=== PATIENT | female | born 1930 | race Caucasian/White ===

== ENCOUNTER 2016-09-05 16:18 | Inpatient (IN) | payer BC ==
[2016-09-05 16:25] VITALS: BMI 25.1
--- NOTE | 2016-09-05 17:17 | PDOC ---
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 Dimas for progressively worsening fluid retention in the lower extremities and shortness of breath. The patient denies any fever, chills, nausea, vomiting, diarrhea, abdominal pain , or chest pain. <Leona Juárez - Last Filed: 09/05/16 17:20> <Delilah Sarmiento - Last Filed: 09/05/16 19:56> - General History Source: Patient, Family Exam Limitations: No Limitations <Reynaldo Chiang - Last Filed: 09/05/16 20:29> - General Chief Complaint: Shortness of Breath Stated Complaint: PCP SENT/SOB/SWOLLEN LEGS Time Seen by Provider: 09/05/16 17:01 Past History <Leona Juárez - Last Filed: 09/05/16 17:20> <Delilah Sarmiento - Last Filed: 09/05/16 19:56> - Past Medical History Anemia: Yes (SEVERAL BLOOD TRANSFUSION) Asthma: No Cancer: No Cardiac Disorders: Yes (ENLARGED HEART) CVA: No COPD: No CHF: Yes Dementia: No Diabetes: No GI Disorders: Yes (AVM) Disorders: No HTN: Yes Hypercholesterolemia: No Liver Disease: Yes (cirrhosis r/t CM) Seizures: No Thyroid Disease: No - Surgical History Abdominal Surgery: No Appendectomy: No Cardiac Surgery: Yes (3 valve replacements, MITRAL VALVE SCRAPING) Cholecystectomy: No Lung Surgery: No Neurologic Surgery: No Orthopedic Surgery: No - Immunization History Immunization Up to Date: Yes - Psycho/Social/Smoking Cessation Hx Anxiety: No Suicidal Ideation: No Smoking Status: Yes Smoking History: Former smoker Have you smoked in the past 12 months: No Number of Cigarettes Smoked Daily: 0 Information on smoking cessation initiated: No Hx Alcohol Use: No Drug/Substance Use Hx: No Substance Use Type: None Hx Substance Use Treatment: No <Reynaldo Chiang - Last Filed: 09/05/16 20:29> - Past Medical History Allergies/Adverse Reactions: Allergies Allergy/AdvReac Type Severity Reaction Status Date / Time clindamycin Allergy Mild Verified 09/05/16 16:21 Penicillins Allergy Mild Verified 09/05/16 16:21 vancomycin Allergy Mild Verified 09/05/16 16:21 PLASTIC TAPE Allergy Rash Uncoded 09/05/16 16:21 Home Medications: Ambulatory Orders Ferrous Sulfate [Feosol] 325 mg PO BID 04/25/13 Furosemide [Lasix -] 40 mg PO DAILY 07/28/13 Calcium Citrate/Vitamin D3 [Calcitrate + Vit D Caplet] 1 each PO BID 09/05/16 Difluprednate [Durezol] 1 drop OP BID 09/05/16 Losartan Potassium [Cozaar -] 25 mg PO DAILY 09/05/16 Nepafenac [Ilevro] 1 drop OP DAILY 09/05/16 Non-Formulary 1 tab PO DAILY 09/05/16 Warfarin Sodium [Coumadin] 3 mg PO ASDIR 09/05/16 Review of Systems - Review of Systems Able to Perform ROS?: Yes Comments:: 09/05/16 17:20 GENERAL/CONSTITUTIONAL: No fever or chills. No weakness. HEAD, EYES, EARS, NOSE AND THROAT: No change in vision. No ear pain or discharge. No sore throat. CARDIOVASCULAR: No chest pain. (+)shortness of breath RESPIRATORY: No cough, wheezing, or hemoptysis. GASTROINTESTINAL: No nausea, vomiting, diarrhea or constipation. GENITOURINARY: No dysuria, frequency, or change in urination. MUSCULOSKELETAL: No joint or muscle swelling or pain. No neck or back pain. SKIN:(+)Lower extremity swelling. NEUROLOGIC: No headache, vertigo, loss of consciousness, or change in strength/ sensation. ENDOCRINE: No increased thirst. No abnormal weight change. HEMATOLOGIC/LYMPHATIC: No anemia, easy bleeding, or history of blood clots. ALLERGIC/IMMUNOLOGIC: No hives or skin allergy. <Leona Juárez - Last Filed: 09/05/16 17:20> *Physical Exam - Vital Signs Last Vital Signs Temp Pulse Resp BP Pulse Ox 98.1 F 51 L 26 H 156/63 94 L 09/05/16 16:22 09/05/16 16:22 09/05/16 16:22 09/05/16 16:22 09/05/16 16:22 - Physical Exam Comments: 09/05/16 17:21 GENERAL: Awake, alert, and fully oriented, in no acute distress HEAD: No signs of trauma EYES: PERRLA, EOMI, sclera anicteric, conjunctiva clear ENT: Auricles normal inspection, hearing grossly normal, nares patent, oropharynx clear without exudates. Moist mucosa NECK: Normal ROM, supple, no lymphadenopathy, JVD, or masses LUNGS: No wheezes.(+)Trace crackles at the bases. HEART: Normal S1 and S2, no murmurs, rubs or gallops. (+)Irregularly irregular metallic valves. ABDOMEN: Soft, nontender, normoactive bowel sounds. No guarding, no rebound. No masses EXTREMITIES: Normal range of motion. No clubbing or cyanosis. No cords. (+)2+ pitting edema bilaterally. NEUROLOGICAL: Cranial nerves II through XII grossly intact. Normal speech. SKIN: Warm, Dry, normal turgor. <Leona Juárez - Last Filed: 09/05/16 17:20> - Vital Signs Last Vital Signs Temp Pulse Resp BP Pulse Ox 98.1 F 51 L 26 H 156/63 94 L 09/05/16 16:22 09/05/16 16:22 09/05/16 16:22 09/05/16 16:22 09/05/16 16:22 <Delilah Sarmiento - Last Filed: 09/05/16 19:56> - Vital Signs Last Vital Signs Temp Pulse Resp BP Pulse Ox 98.1 F 51 L 26 H 156/63 94 L 09/05/16 16:22 09/05/16 16:22 09/05/16 16:22 09/05/16 16:22 09/05/16 16:22 <Reynaldo Chiang - Last Filed: 09/05/16 20:29> Heart Score/ECG Review #1 ECG reviewed & interpreted by me at: 16:45 09/05/16 17:17 atrial fibrillation with a competing junctional rhythm, incomplete RBBB, RVH, right axis deviation, TWI with 1mm STD V6, T wave flat aVL, QTC 438 msec <Reynaldo Chiang - Last Filed: 09/05/16 20:29> ED Treatment Course - LABORATORY CBC & Chemistry Diagram: 09/05/16 17:59 09/05/16 17:59 - ADDITIONAL ORDERS Additional order review: Laboratory Results 09/05/16 09/05/16 09/05/16 18:49 17:59 17:59 INR 2.45 H PTT (Actin FS) 47.6 H D Sodium 135 L Potassium 4.6 Chloride 93 L Carbon Dioxide 34 H Anion Gap 8 BUN 56 H D Creatinine 1.3 H D Creat Clearance w eGFR 39.12 Random Glucose 100 Calcium 9.0 Magnesium 2.8 H D Total Bilirubin 1.0 D AST 118 H D ALT 61 D Alkaline Phosphatase 156 H D Creatine Kinase 96 Troponin I < 0.02 B-Natriuretic Peptide 2350.49 H Total Protein 7.3 D Albumin 3.6 D Urine Color Yellow Urine Appearance Cloudy Urine pH 6.0 Ur Specific [place] 1.011 Urine Protein Negative Urine Glucose (UA) Negative Urine Ketones Negative Urine Blood 1+ H Urine Nitrite Negative Urine Bilirubin Negative Urine Urobilinogen Negative Ur Leukocyte Esterase Negative Urine RBC 10 Urine WBC 1 Ur Epithelial Cells Rare Urine Bacteria Rare Hyaline Casts 4 Granular Casts 1 09/05/16 17:59 RBC 3.34 L MCV 89.1 MCHC 32.2 RDW 15.9 H MPV 10.0 Neutrophils % 71.5 D Lymphocytes % 7.3 L D Monocytes % 18.8 H D Eosinophils % 1.4 D Basophils % 1.0 <Delilah Sarmiento - Last Filed: 09/05/16 19:56> - LABORATORY CBC & Chemistry Diagram: 09/05/16 17:59 09/05/16 17:59 - RADIOLOGY Radiology Studies Ordered: Category Date Time Status CHEST X-RAY PORTABLE* [RAD] Stat Radiology 09/05/16 17:02 Ordered <Reynaldo Chiang - Last Filed: 09/05/16 20:29> Medical Decision Making - Medical Decision Making 09/05/16 19:56 Placed call to patient's PCP, Dr. Dimas. Case discussed with Dr. Dimas who agreed to admission. 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 Case discussed with covering physician, Dr. Barroso. <Delilah Sarmiento - Last Filed: 09/05/16 19:56> - Medical Decision Making 09/05/16 17:13 A portion of this note was written by my scribe under my supervision. 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 Dimas for CHF workup. The patient endorses 1 month of increasing MORSE and increasingly lower extremity edema despite taking 20 mg lasix BID. Denies chest pain or recent illnesses. Pt was seen by DR. Dimas who sent the patient to the ER for further evaluation. Differential includes CHF, anemia, ACS. Will send labs including trop and BNP. Chest xray. It appears that the patient has afib (which is reportedly new to the patient). however, patient already reports she is on coumadin for her valves. Will admit the patient to the hospital for further workup and management. 09/05/16 20:27 CBC, BMP 09/05/16 17:59 09/05/16 17:59 CMP Sodium 135 mmol/L (136-145) L 09/05/16 17:59 Potassium 4.6 mmol/L (3.5-5.1) 09/05/16 17:59 Chloride 93 mmol/L (98-107) L 09/05/16 17:59 Carbon Dioxide 34 mmol/L (21-32) H 09/05/16 17:59 Anion Gap 8 (8-16) 09/05/16 17:59 BUN 56 mg/dL (7-18) H D 09/05/16 17:59 Creatinine 1.3 mg/dL (0.55-1.02) H D 09/05/16 17:59 Creat Clearance w eGFR 39.12 (>60) 09/05/16 17:59 Random Glucose 100 mg/dL (74-106) 09/05/16 17:59 Calcium 9.0 mg/dL (8.5-10.1) 09/05/16 17:59 Magnesium 2.8 mg/dL (1.8-2.4) H D 09/05/16 17:59 Total Bilirubin 1.0 mg/dL (0.2-1.0) D 16 17:59 AST 118 U/L (15-37) H D 09/05/16 17:59 ALT 61 U/L (12-78) D 16 17:59 Alkaline Phosphatase 156 U/L (45-117) H D 09/05/16 17:59 Creatine Kinase 96 IU/L (26-192) 09/05/16 17:59 Troponin I < 0.02 ng/ml (0.015-0.045) 09/05/16 17:59 B-Natriuretic Peptide 2350.49 pg/ml (5-450) H 09/05/16 17:59 Total Protein 7.3 g/dl (6.4-8.2) D 09/05/16 17:59 Albumin 3.6 g/dl (3.4-5.0) D 09/05/16 17:59 Urine Test Results Urine Color Yellow 09/05/16 18:49 Urine Appearance Cloudy 09/05/16 18:49 Urine pH 6.0 (5.0-8.0) 09/05/16 18:49 Ur Specific [place] 1.011 (1.001-1.035) 09/05/16 18:49 Urine Protein Negative (NEGATIVE) 09/05/16 18:49 Urine Glucose (UA) Negative (NEGATIVE) 09/05/16 18:49 Urine Ketones Negative (NEGATIVE) 09/05/16 18:49 Urine Blood 1+ (NEGATIVE) H 09/05/16 18:49 Urine Nitrite Negative (NEGATIVE) 09/05/16 18:49 Urine Bilirubin Negative (NEGATIVE) 09/05/16 18:49 Ur Leukocyte Esterase Negative (NEGATIVE) 09/05/16 18:49 Urine RBC 10 /hpf (0-3) 09/05/16 18:49 Urine WBC 1 /hpf (3-5) 09/05/16 18:49 Ur Epithelial Cells Rare /hpf (FEW) 09/05/16 18:49 Urine Bacteria Rare /hpf (NONE SEEN) 09/05/16 18:49 Labs reviewed. Cr 1.3. BNP 2350. Chest xray reviewed: cardiomegaly. Case discussed with DR. Barroso (cards) and Dr. Dimas. Requested 40 mg IV lasix. Case accepted to Dr. Dimas's service to telemetry. For CHF and elevated creatinine. <Reynaldo Chiang - Last Filed: 09/05/16 20:29> *DC/Admit/Observation/Transfer - Attestations Scribe Attestion: 09/05/16 17:25 Documentation prepared by Leona Juárez, acting as medical surgery nurse for Reynaldo Chiang MD. <Leona Juárez - Last Filed: 09/05/16 17:20> <Delilah Sarmiento - Last Filed: 09/05/16 19:56> - Discharge Dispostion Admit: Yes <Reynaldo Chiang - Last Filed: 09/05/16 20:29> Diagnosis at time of Disposition: Serum creatinine raised, Shortness of breath Congestive heart failure Qualifiers: Congestive heart failure type: unspecified congestive heart failure type Congestive heart failure chronicity: unspecified congestive heart failure chronicity Qualified Code(s): I50.9 - Heart failure, unspecified - Discharge Dispostion Condition at time of disposition: Guarded - Referrals Referrals: Braeden Dimas MD [Primary Care Provider] -
[2016-09-05 18:30] LABS: EOSINOPHIL 1.4 % (0-4.5); MCH 28.7 pg (25.7-33.7); MCHC 32.2 g/dl (32.0-36.0); MEAN CELL VOLUME 89.1 fl (80-96); NEUTROPHILS 71.5 % (42.8-82.8); PLATELET COUNT 193 K/MM3 (134-434); RDW 15.9 % (11.6-15.6); WHITE BLOOD COUNT 3.7 K/mm3 (4.0-10.0)
[2016-09-05 18:45] LABS: INR 2.45 (0.82-1.09); PROTHROMBIN TIME (PATIENT) 27.4 SEC (9.98-11.88)
[2016-09-05 18:48] LABS: ACTIVATED PTT 47.6 SECONDS (26.9-34.4)
[2016-09-05 19:07] LABS: URINE APPEARANCE CLOUDY; URINE BILIRUBIN NEGATIVE (NEGATIVE); URINE COLOR YELLOW; URINE GLUCOSE (UA) NEGATIVE (NEGATIVE); URINE KETONE NEGATIVE (NEGATIVE); URINE LEUK ESTERASE NEGATIVE (NEGATIVE); URINE NITRITE NEGATIVE (NEGATIVE); URINE PROTEIN NEGATIVE (NEGATIVE); URINE UROBILINOGEN NEGATIVE E.U./dl (0.2-1.0)
[2016-09-05 19:09] LABS: URINE BLOOD 1+ (NEGATIVE)
[2016-09-05 19:10] LABS: GRANULAR CASTS 1 /lpf; URINE BACTERIA RARE /hpf (NONE SEEN); URINE HYALINE CAST 4 /lpf; URINE RBC 10 /hpf (0-3); URINE WBC 1 /hpf (3-5)
[2016-09-05 19:11] LABS: ALBUMIN 3.6 g/dl (3.4-5.0); ANION GAP 8 (8-16); CO2 34 mmol/L (21-32); CREATININE 1.3 mg/dL (0.55-1.02); GLUCOSE,RANDOM 100 mg/dL (74-106); MAGNESIUM 2.8 mg/dL (1.8-2.4); SGPT/ALT 61 U/L (12-78); TOT PROT 7.3 g/dl (6.4-8.2)
[2016-09-05 19:14] LABS: ALK PHOS 156 U/L (45-117); TROPONIN I < 0.02 ng/ml (0.015-0.045)
[2016-09-05 19:34] LABS: SGOT/AST 118 U/L (15-37)
[2016-09-05] MEDS ORDERED: ACETAMINOPHEN 325 MG TABLET (FP) PO PRN (20:01)
[2016-09-05] MEDS ORDERED: OPTH OD PRN (20:04)
[2016-09-05] MEDS ORDERED: HYPROMELLOSE OD PRN (20:04)
[2016-09-05] MEDS ORDERED: FUROSEMIDE 40 MG/4 ML INJECTABLE VIAL IVPB ONE (20:27)
[2016-09-05] MEDS ORDERED: WARFARIN NA 1 MG TABLET (FP) ONE (20:30)
[2016-09-05] MEDS ORDERED: FUROSEMIDE 40 MG/4 ML INJECTABLE VIAL ONE (22:15)
[2016-09-06] MEDS: FERROUS SO4 325 MG TABLET (FP) PO SCH ×3 (04:28→21:13)
[2016-09-06 07:51] LABS: MCH 28.7 pg (25.7-33.7); MCHC 32.3 g/dl (32.0-36.0); MEAN CELL VOLUME 89.1 fl (80-96); MEAN PLT VOLUME 9.2 fl (7.5-11.1); PLATELET COUNT 164 K/MM3 (134-434); WHITE BLOOD COUNT 3.3 K/mm3 (4.0-10.0)
[2016-09-06 08:24] LABS: INR 2.7 (0.82-1.09); PROTHROMBIN TIME (PATIENT) 30.3 SEC (9.98-11.88)
[2016-09-06] MEDS: LOSARTAN POTASSIUM 50 MG TABLET (FP) PO SCH (09:44)
--- NOTE | 2016-09-06 11:01 | CONSULT ---
Consult Consult Specialty:: Cardiology Referred by:: Dr. Braeden Dimas Reason for Consultation:: Cardiac evaluation - History of Present Illness Chief Complaint: Shortness of breath History of Present Illness: Patient is an 85 year old female well known to our service (sees Dr. Grossman) with underlying history of rheumatic heart disease s/p mechanical prosthesis both mitral and aortic valve and bioprosthetic tricuspid valve, history of permanent atrial fibrillation, hepatic cirrhosis, cholelithiasis and history of GI bleed in the past now presents with increase in shortness of breath and pedal edema. She was given IV Lasix last night and feels a little better, but still appears short of breath. She denies chest pain or palpitations. ECG demonstrates atrial fibrillation, but rate controlled. She denies paroxysmal nocturnal dyspnea or orthopnea. She denies fever or chills. She denies headache or lightheadedness. Cardiology consultation was called for further evaluation. - History Source History Provided By: Patient, Medical Record Limitations to Obtaining History: No Limitations - Past Medical History Cardio/Vascular: Yes: AFIB, Aortic Insufficiency, Mitral Insufficiency, Other ( Rheumatic heart disease) Gastrointestinal: Yes: GI Bleed, Peptic Ulcer Disease, Other (AV malformation) Hepatobiliary: Yes: Cirrhosis, Cholelithiasis - Past Surgical History Past Surgical History: Yes: Valve Replacement (Mechanical AVR, MVR, bioprosthetic TVR) - Alcohol/Substance Use Hx Alcohol Use: Yes (seldom) - Smoking History Smoking history: Former smoker Have you smoked in the past 12 months: No Aproximately how many cigarettes per day: 0 If you are a former smoker, when did you quit?: 2013 Home Medications - Allergies Allergies/Adverse Reactions: Allergies Allergy/AdvReac Type Severity Reaction Status Date / Time clindamycin Allergy Mild Verified 09/05/16 16:21 Penicillins Allergy Mild Verified 09/05/16 16:21 vancomycin Allergy Mild Verified 09/05/16 16:21 PLASTIC TAPE Allergy Rash Uncoded 09/05/16 16:21 - Home Medications Home Medications: Ambulatory Orders Ferrous Sulfate [Feosol] 325 mg PO BID 04/25/13 Furosemide [Lasix -] 40 mg PO DAILY 07/28/13 Calcium Citrate/Vitamin D3 [Calcitrate + Vit D Caplet] 1 each PO BID 09/05/16 Difluprednate [Durezol] 1 drop OP BID 09/05/16 Losartan Potassium [Cozaar -] 25 mg PO DAILY 09/05/16 Nepafenac [Ilevro] 1 drop OP DAILY 09/05/16 Non-Formulary 1 tab PO DAILY 09/05/16 Warfarin Sodium [Coumadin] 3 mg PO ASDIR 09/05/16 Family Disease History - Family Disease History Other Family History: History of HTN Review of Systems - Review of Systems Constitutional: denies: Chills Cardiovascular: reports: Shortness of Breath. denies: Chest Pain, Palpitations Respiratory: reports: SOB, SOB on Exertion. denies: Cough, Hemoptysis, Orthopnea, PND Gastrointestinal: denies: Abdominal Pain, Constipation, Diarrhea, Melena, Nausea , Rectal Bleeding, Vomiting Musculoskeletal: denies: Joint Pain Neurological: denies: Dizziness, Headache, Seizure, Syncope Vital Signs: Vital Signs Temperature 97.7 F 09/06/16 06:00 Pulse Rate 61 09/06/16 06:00 Respiratory Rate 18 09/06/16 06:00 Blood Pressure 140/45 09/06/16 06:00 O2 Sat by Pulse Oximetry (%) 98 09/06/16 01:00 Neck: Yes: Supple Respiratory: Yes: Diminished Gastrointestinal: Yes: Normal Bowel Sounds, Soft. No: Tenderness Cardiovascular: Yes: Pulse Irregular JVD: No Carotid Bruit: No PMI: Non-Displaced Heart Sounds: Yes: S1, S2, Clicks Murmur: Yes: Systolic Murmur (Soft decrescendo systolic murmur apex) Extremities: Yes: Erythema Edema: Yes Edema: LLE: 2+, RLE: 2+ - Other Data Labs, Other Data: CBC, BMP 09/06/16 06:10 INR, PTT INR 2.70 (0.82-1.09) H 09/06/16 06:10 Imaging - Results Chest X-ray: Report Reviewed (Cardiomegaly) EKG: Report Reviewed Problem List - Problems (1) CHF (congestive heart failure) Code(s): I50.9 - HEART FAILURE, UNSPECIFIED Qualifiers: Congestive heart failure type: diastolic Congestive heart failure chronicity: acute on chronic Qualified Code(s): I50.33 - Acute on chronic diastolic (congestive) heart failure (2) Shortness of breath Code(s): R06.02 - SHORTNESS OF BREATH (3) S/P MVR (mitral valve replacement) Code(s): Z95.2 - PRESENCE OF PROSTHETIC HEART VALVE (4) Rheumatic heart disease Code(s): I09.9 - RHEUMATIC HEART DISEASE, UNSPECIFIED (5) S/P AVR (aortic valve replacement) Code(s): Z95.2 - PRESENCE OF PROSTHETIC HEART VALVE (7) Anemia Code(s): D64.9 - ANEMIA, UNSPECIFIED Qualifiers: Anemia type: iron deficiency (8) Hepatic cirrhosis Code(s): K74.60 - UNSPECIFIED CIRRHOSIS OF LIVER Qualifiers: Hepatic cirrhosis type: unspecified hepatic cirrhosis Ascites presence : without ascites Qualified Code(s): K74.60 - Unspecified cirrhosis of liver Assessment/Plan 1. Clinical presentation c/w acute on chronic LV diastolic failure with NYHA II- III classification heart failure 2. Post MVR and AVR (mechanical prosthesis) with history of rheumatic heart disease 3. Post TVR (bioprosthesis) 4. Permanent atrial fibrillation 5. Anemia 6. History of hepatic cirrhosis and cholelithiasis PLAN: 1. Agree with IV Lasix 40 mg BID if tolerated and monitor renal function and electrolytes 2. Continue Coumadin as per INR 3. Continue Cozaar as tolerated. Currently not on beta yuly, but will review medical records from the office 4. Will review cardiac testing result from office if available 5. Monitor troponin 6. Monitor CBC (H/H) Further plans are to follow Elio Barroso MD
[2016-09-06 11:16] LABS: ALBUMIN 3.4 g/dl (3.4-5.0); BILIRUBIN,TOTAL 0.9 mg/dL (0.2-1.0); CALCIUM 8.6 mg/dL (8.5-10.1); CREATININE 1.2 mg/dL (0.55-1.02); TOT PROT 6.6 g/dl (6.4-8.2)
--- NOTE | 2016-09-06 12:17 | HP ---
Admitting History and Physical - Primary Care Physician PCP: Braeden Dimas - Admission Chief Complaint: DYSPNEA/WEAKNESS History of Present Illness: 85 Y/O FEMALE WELL KNOWN TO OUR PRACTICE WITH HISTORY OF MULTIPLE CARDIAC VALVE REPLACEMENTS 25 YEARS AGO. PATIENT ON COUMADIN, IATOGENIC CIRRHOSIS, VENOUS STASIS DERMATITIS, UNSTEADY GAIT PRESENTED TO MY OFFICE 2 DAYS AGO WITH DYSPNEA/ WEAKNESS, AFTER CAREFULLY REVIEWING HER LABS I CALLED HER AND TOLD HER TO COME TO ED FOR ADMISSION. PATIENT HAD ELEVATED BUN/CREAT AND ELEVATED BNP. History Source: Patient - Past Medical History Cardiovascular: Yes: AFIB, Aortic Insufficiency, Mitral Insufficiency, Other ( Rheumatic heart disease) Gastrointestinal: Yes: GI Bleed, Peptic Ulcer Disease, Other (AV malformation) Hepatobiliary: Yes: Cirrhosis, Cholelithiasis - Past Surgical History Past Surgical History: Yes: Valve Replacement (Mechanical AVR, MVR, bioprosthetic TVR) - Smoking History Smoking history: Former smoker Have you smoked in the past 12 months: No Aproximately how many cigarettes per day: 0 If you are a former smoker, when did you quit?: 2013 - Alcohol/Substance Use Hx Alcohol Use: Yes (seldom) Home Medications - Allergies Allergies/Adverse Reactions: Allergies Allergy/AdvReac Type Severity Reaction Status Date / Time clindamycin Allergy Mild Verified 09/05/16 16:21 Penicillins Allergy Mild Verified 09/05/16 16:21 vancomycin Allergy Mild Verified 09/05/16 16:21 PLASTIC TAPE Allergy Rash Uncoded 09/05/16 16:21 - Home Medications Home Medications: Ambulatory Orders Ferrous Sulfate [Feosol] 325 mg PO BID 04/25/13 Furosemide [Lasix -] 40 mg PO DAILY 07/28/13 Calcium Citrate/Vitamin D3 [Calcitrate + Vit D Caplet] 1 each PO BID 09/05/16 Difluprednate [Durezol] 1 drop OP BID 09/05/16 Losartan Potassium [Cozaar -] 25 mg PO DAILY 09/05/16 Nepafenac [Ilevro] 1 drop OP DAILY 09/05/16 Non-Formulary 1 tab PO DAILY 09/05/16 Warfarin Sodium [Coumadin] 3 mg PO ASDIR 09/05/16 Family Disease History - Family Disease History Other Family History: History of HTN Review of Systems - Review of Systems Constitutional: reports: Loss of Appetite, Malaise, Weakness Eyes: reports: No Symptoms HENT: reports: No Symptoms Neck: reports: No Symptoms Cardiovascular: reports: Palpitations, Shortness of Breath Respiratory: reports: Cough, Exercise Intolerance, SOB Gastrointestinal: reports: No Symptoms Genitourinary: reports: No Symptoms Musculoskeletal: reports: Muscle Weakness Integumentary: reports: Erythema, Rash Neurological: reports: No Symptoms Endocrine: reports: No Symptoms Hematology/Lymphatic: reports: No Symptoms Psychiatric: reports: No Symptoms Physical Examination Vital Signs: Vital Signs Temperature 97.7 F 09/06/16 06:00 Pulse Rate 61 09/06/16 06:00 Respiratory Rate 18 09/06/16 10:00 Blood Pressure 140/45 09/06/16 06:00 O2 Sat by Pulse Oximetry (%) 98 09/06/16 10:00 Constitutional: Yes: Moderate Distress Eyes: Yes: WNL HENT: Yes: WNL Neck: Yes: WNL Cardiovascular: Yes: Pulse Irregular, Murmur Respiratory: Yes: Diminished, Poor Air Entry, SOB, SOB on Exertion Gastrointestinal: Yes: WNL Renal/: Yes: WNL Musculoskeletal: Yes: Muscle Weakness Extremities: Yes: WNL Edema: No Peripheral Pulses WNL: Yes Integumentary: Yes: Erythema, Rash, Venous Stasis Changes Wound/Incision: Yes: Open to air Neurological: Yes: WNL ...Motor Strength: LLE, RLE Psychiatric: Yes: Other Labs: CBC, BMP 09/06/16 06:10 09/06/16 06:10 Imaging - Results X-ray: Report Reviewed Problem List - Problems (1) Anemia Code(s): D64.9 - ANEMIA, UNSPECIFIED Qualifiers: Anemia type: iron deficiency (2) CHF (congestive heart failure) Code(s): I50.9 - HEART FAILURE, UNSPECIFIED Qualifiers: Congestive heart failure type: diastolic Congestive heart failure chronicity: acute on chronic Qualified Code(s): I50.33 - Acute on chronic diastolic (congestive) heart failure (3) Elevated serum creatinine Code(s): R79.89 - OTHER SPECIFIED ABNORMAL FINDINGS OF BLOOD CHEMISTRY (4) Hepatic cirrhosis Code(s): K74.60 - UNSPECIFIED CIRRHOSIS OF LIVER Qualifiers: Hepatic cirrhosis type: unspecified hepatic cirrhosis Ascites presence : without ascites Qualified Code(s): K74.60 - Unspecified cirrhosis of liver (5) Rheumatic heart disease Code(s): I09.9 - RHEUMATIC HEART DISEASE, UNSPECIFIED (6) S/P AVR (aortic valve replacement) Code(s): Z95.2 - PRESENCE OF PROSTHETIC HEART VALVE (7) S/P MVR (mitral valve replacement) Code(s): Z95.2 - PRESENCE OF PROSTHETIC HEART VALVE (9) Shortness of breath Code(s): R06.02 - SHORTNESS OF BREATH Assessment/Plan IV LASIX RENAL AND CARDIAC EVAL APPRECIATED VASC SX EVAL FOR STASIS DERMATITIS 02 SUPPORT PULM EVAL
[2016-09-06 12:59] LABS: TROPONIN I < 0.02 ng/ml (0.015-0.045)
[2016-09-06] MEDS: FUROSEMIDE 40 MG/4 ML INJECTABLE VIAL IVPUSH SCH (14:51)
--- NOTE | 2016-09-06 15:02 | CONSULT ---
Consult Consult Specialty:: Nephrology Reason for Consultation:: RADHA - History of Present Illness Chief Complaint: shortness of breath History of Present Illness: Pt is an 85 year old female who presents to the ER with weakness and shortness of breath that has been progressive. She has history of mechanical aortic and mitral valves, bioprosthetic tricuspid valve, a-fib, cirrhosis, GI bleed, anemai , and HTN. She felt better when she was given lasix. I was called to evaluate her for elevated creatinine. She denies history if CKD. She denies dysuria or hematuria. She denies NSAID use. She is awake and alert. She feels that her breathing is improved. - History Source History Provided By: Patient - Past Medical History Cardio/Vascular: Yes: AFIB, Aortic Insufficiency, Mitral Insufficiency, Other ( Rheumatic heart disease) Gastrointestinal: Yes: GI Bleed, Peptic Ulcer Disease, Other (AV malformation) Hepatobiliary: Yes: Cirrhosis, Cholelithiasis - Past Surgical History Past Surgical History: Yes: Valve Replacement (Mechanical AVR, MVR, bioprosthetic TVR) - Alcohol/Substance Use Hx Alcohol Use: Yes (seldom) - Smoking History Smoking history: Former smoker Have you smoked in the past 12 months: No Aproximately how many cigarettes per day: 0 If you are a former smoker, when did you quit?: 2013 Home Medications - Allergies Allergies/Adverse Reactions: Allergies Allergy/AdvReac Type Severity Reaction Status Date / Time clindamycin Allergy Mild Verified 09/05/16 16:21 Penicillins Allergy Mild Verified 09/05/16 16:21 vancomycin Allergy Mild Verified 09/05/16 16:21 PLASTIC TAPE Allergy Rash Uncoded 09/05/16 16:21 - Home Medications Home Medications: Ambulatory Orders Ferrous Sulfate [Feosol] 325 mg PO BID 04/25/13 Furosemide [Lasix -] 40 mg PO DAILY 07/28/13 Calcium Citrate/Vitamin D3 [Calcitrate + Vit D Caplet] 1 each PO BID 09/05/16 Difluprednate [Durezol] 1 drop OP BID 09/05/16 Losartan Potassium [Cozaar -] 25 mg PO DAILY 09/05/16 Nepafenac [Ilevro] 1 drop OP DAILY 09/05/16 Non-Formulary 1 tab PO DAILY 09/05/16 Warfarin Sodium [Coumadin] 3 mg PO ASDIR 09/05/16 Family Disease History - Family Disease History Family History: Denies Other Family History: History of HTN Review of Systems - Review of Systems Constitutional: reports: Malaise Eyes: reports: No Symptoms HENT: reports: No Symptoms Neck: reports: No Symptoms Cardiovascular: reports: Edema, Shortness of Breath Respiratory: reports: SOB, SOB on Exertion Genitourinary: reports: No Symptoms Musculoskeletal: reports: Muscle Weakness Integumentary: reports: No Symptoms Neurological: reports: No Symptoms Endocrine: reports: No Symptoms Hematology/Lymphatic: reports: No Symptoms Psychiatric: reports: No Symptoms Physical Exam Vital Signs: Vital Signs Temperature 98.5 F 09/06/16 14:00 Pulse Rate 60 09/06/16 14:00 Respiratory Rate 18 09/06/16 14:00 Blood Pressure 117/48 09/06/16 14:00 O2 Sat by Pulse Oximetry (%) 98 09/06/16 10:00 Constitutional: Yes: Calm Eyes: Yes: Conjunctiva Clear HENT: Yes: Atraumatic Cardiovascular: Yes: Pulse Irregular, S1, S2 Respiratory: Yes: Diminished, On Nasal O2 Gastrointestinal: Yes: Soft Renal/: Yes: WNL Musculoskeletal: Yes: Muscle Weakness Edema: Yes Edema: LLE: 1+, RLE: 1+ Neurological: Yes: Oriented Psychiatric: Yes: Oriented Labs: CBC, BMP 09/06/16 06:10 09/06/16 06:10 Laboratory Tests 03/16/13 03/24/13 03/25/13 06:40 07:30 08:20 WBC Hgb Plt Count INR Sodium Potassium Chloride Carbon Dioxide Anion Gap Creatinine 0.6 0.6 0.7 BUN Creat Clearance w eGFR B-Natriuretic Peptide Urine Color Urine Appearance Urine pH Ur Specific [place] Urine Protein Urine Glucose (UA) Urine Ketones Urine Blood Urine Nitrite Urine Bilirubin Urine Urobilinogen Ur Leukocyte Esterase 03/27/13 03/29/13 04/01/13 08:35 07:35 07:15 WBC Hgb Plt Count INR Sodium Potassium Chloride Carbon Dioxide Anion Gap Creatinine 0.7 0.6 0.5 L BUN Creat Clearance w eGFR B-Natriuretic Peptide Urine Color Urine Appearance Urine pH Ur Specific [place] Urine Protein Urine Glucose (UA) Urine Ketones Urine Blood Urine Nitrite Urine Bilirubin Urine Urobilinogen Ur Leukocyte Esterase 04/29/13 07/28/13 07/30/13 11:16 11:40 06:00 WBC Hgb Plt Count INR Sodium Potassium Chloride Carbon Dioxide Anion Gap Creatinine 0.6 1.0 D 0.7 BUN Creat Clearance w eGFR B-Natriuretic Peptide Urine Color Urine Appearance Urine pH Ur Specific [place] Urine Protein Urine Glucose (UA) Urine Ketones Urine Blood Urine Nitrite Urine Bilirubin Urine Urobilinogen Ur Leukocyte Esterase 07/31/13 08/02/13 08/03/13 06:00 06:15 06:00 WBC Hgb Plt Count INR Sodium Potassium Chloride Carbon Dioxide Anion Gap Creatinine 0.6 0.6 0.5 L BUN Creat Clearance w eGFR B-Natriuretic Peptide Urine Color Urine Appearance Urine pH Ur Specific [place] Urine Protein Urine Glucose (UA) Urine Ketones Urine Blood Urine Nitrite Urine Bilirubin Urine Urobilinogen Ur Leukocyte Esterase 09/05/16 09/05/16 09/05/16 17:59 17:59 17:59 WBC 3.7 L Hgb 9.6 L Plt Count 193 D INR 2.45 H Sodium 135 L Potassium 4.6 Chloride 93 L Carbon Dioxide 34 H Anion Gap 8 Creatinine 1.3 H D BUN 56 H D Creat Clearance w eGFR 39.12 B-Natriuretic Peptide 2350.49 H Urine Color Urine Appearance Urine pH Ur Specific [place] Urine Protein Urine Glucose (UA) Urine Ketones Urine Blood Urine Nitrite Urine Bilirubin Urine Urobilinogen Ur Leukocyte Esterase 09/05/16 09/06/16 09/06/16 18:49 06:10 06:10 WBC 3.3 L Hgb 8.7 L Plt Count 164 INR 2.70 H Sodium Potassium Chloride Carbon Dioxide Anion Gap Creatinine BUN Creat Clearance w eGFR B-Natriuretic Peptide Urine Color Yellow Urine Appearance Cloudy Urine pH 6.0 Ur Specific [place] 1.011 Urine Protein Negative Urine Glucose (UA) Negative Urine Ketones Negative Urine Blood 1+ H Urine Nitrite Negative Urine Bilirubin Negative Urine Urobilinogen Negative Ur Leukocyte Esterase Negative 09/06/16 06:10 WBC Hgb Plt Count INR Sodium 137 Potassium Chloride Carbon Dioxide Anion Gap Creatinine 1.2 H BUN 53 H Creat Clearance w eGFR B-Natriuretic Peptide Urine Color Urine Appearance Urine pH Ur Specific [place] Urine Protein Urine Glucose (UA) Urine Ketones Urine Blood Urine Nitrite Urine Bilirubin Urine Urobilinogen Ur Leukocyte Esterase Imaging - Results Chest X-ray: Report Reviewed (cardiomegaly) Problem List - Problems (1) Anemia Code(s): D64.9 - ANEMIA, UNSPECIFIED Qualifiers: Anemia type: iron deficiency (2) CHF (congestive heart failure) Code(s): I50.9 - HEART FAILURE, UNSPECIFIED Qualifiers: Congestive heart failure type: diastolic Congestive heart failure chronicity: acute on chronic Qualified Code(s): I50.33 - Acute on chronic diastolic (congestive) heart failure (3) Cholelithiasis Code(s): K80.20 - CALCULUS OF GALLBLADDER W/O CHOLECYSTITIS W/O OBSTRUCTION Qualifiers: Cholelithiasis location: gallbladder Cholecystitis presence: without cholecystitis Biliary obstruction: without biliary obstruction Qualified Code(s): K80.20 - Calculus of gallbladder without cholecystitis without obstruction (4) Hepatic cirrhosis Code(s): K74.60 - UNSPECIFIED CIRRHOSIS OF LIVER Qualifiers: Hepatic cirrhosis type: unspecified hepatic cirrhosis Ascites presence : without ascites Qualified Code(s): K74.60 - Unspecified cirrhosis of liver (5) S/P AVR (aortic valve replacement) Code(s): Z95.2 - PRESENCE OF PROSTHETIC HEART VALVE (6) S/P MVR (mitral valve replacement) Code(s): Z95.2 - PRESENCE OF PROSTHETIC HEART VALVE (8) Shortness of breath Code(s): R06.02 - SHORTNESS OF BREATH (9) RADHA (acute kidney injury) Code(s): N17.9 - ACUTE KIDNEY FAILURE, UNSPECIFIED Assessment/Plan Current Medications Generic Name Dose Route Start Last Admin Trade Name Freq PRN Reason Stop Dose Admin Acetaminophen 650 mg 09/05/16 20:01 Tylenol - PO Q6H PRN FEVER OR PAIN Artificial Tears 1 drop 09/05/16 20:04 Artificial Tears OD DAILY PRN DRY EYES Ferrous Sulfate 325 mg 09/05/16 22:00 09/06/16 09:44 Feosol - PO 325 mg BID ABELARDO Administration Furosemide 40 mg 09/06/16 14:00 09/06/16 14:51 Lasix Injection - IVPUSH 40 mg BID@0600,1400 ABELARDO Administration Losartan Potassium 25 mg 09/06/16 10:00 09/06/16 09:44 Cozaar - PO 25 mg DAILY ABELARDO Administration Nepafenac 0.3% Opth 1 each 09/06/16 10:00 Drops OD DAILY ABELARDO Difluprednate 0.05% 1 each 09/06/16 10:00 Opth Drops OD BID [facility] Warfarin Sodium 3 mg 09/06/16 18:00 Coumadin - PO DAILY@1800 [facility] Impression 1. RADHA 2. aortic valve replacement 3. mitral valve replacement 4. tricuspid valve replacement 5. CHF 6. a-fib 7. anemia 8. hx GI bleed 9. HTN Plan - agree with lasix - creatinine is improving - will hold cozaar if renal function deteriorates further - will check ultrasound of the kidneys and bladder - check ua - will send urine lytes - likely cardiorenal - unclear why not on beta yuly, will discussed with cardio/pulm Dr Bo
[2016-09-06] MEDS ORDERED: ZOLPIDEM TARTRATE 5 MG TABLET PO PRN (17:38)
[2016-09-06] MEDS ORDERED: WARFARIN NA 2 MG TABLET (UD) PO ONE (18:00)
[2016-09-07 02:14] LABS: URINE APPEARANCE CLEAR; URINE BILIRUBIN NEGATIVE (NEGATIVE); URINE COLOR YELLOW; URINE GLUCOSE (UA) NEGATIVE (NEGATIVE); URINE KETONE NEGATIVE (NEGATIVE); URINE LEUK ESTERASE NEGATIVE (NEGATIVE); URINE NITRITE NEGATIVE (NEGATIVE); URINE PROTEIN NEGATIVE (NEGATIVE); URINE UROBILINOGEN NEGATIVE E.U./dl (0.2-1.0)
[2016-09-07 02:21] LABS: URINE BLOOD 1+ (NEGATIVE)
[2016-09-07 02:25] LABS: URINE HYALINE CAST 23 /lpf; URINE MUCUS RARE; URINE RBC 2 /hpf (0-3); URINE WBC 2 /hpf (3-5)
[2016-09-07 03:48] LABS: CHLORIDE,RANDOM URINE < 10 MMOL/L; SODIUM,RANDOM URINE 9 MMOL/L
[2016-09-07] MEDS: FUROSEMIDE 40 MG/4 ML INJECTABLE VIAL IVPUSH SCH ×2 (06:12→14:07)
[2016-09-07 08:15] LABS: ALBUMIN 3.2 g/dl (3.4-5.0); BILIRUBIN,TOTAL 0.7 mg/dL (0.2-1.0); CALCIUM 8.1 mg/dL (8.5-10.1); CREATININE 1.4 mg/dL (0.55-1.02); TOT PROT 6.7 g/dl (6.4-8.2)
[2016-09-07 08:17] LABS: MCH 28.4 pg (25.7-33.7); MCHC 31.5 g/dl (32.0-36.0); MEAN CELL VOLUME 90.2 fl (80-96); MEAN PLT VOLUME 9.8 fl (7.5-11.1); PLATELET COUNT 202 K/MM3 (134-434); RDW 16.1 % (11.6-15.6); WHITE BLOOD COUNT 4.6 K/mm3 (4.0-10.0)
--- NOTE | 2016-09-07 09:33 | EKG ---
Test Reason : Blood Pressure : / mmHG Vent. 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
--- NOTE | 2016-09-07 09:56 | PN ---
Progress Note, Physician Chief Complaint: Dyspnea persists, but better History of Present Illness: Patient was seen and examined. Awake and alert. Chart was reviewed Denies chest pain or palpitations Less SOB Pedal edema persists - Current Medication List Current Medications: Active Medications Acetaminophen (Tylenol -) 650 mg PO Q6H PRN PRN Reason: FEVER OR PAIN Artificial Tears (Artificial Tears) 1 drop OD DAILY PRN PRN Reason: DRY EYES Ferrous Sulfate (Feosol -) 325 mg PO BID [facility] Last Admin: 09/06/16 21:13 Dose: 325 mg Furosemide (Lasix Injection -) 40 mg IVPUSH BID@0600,1400 [facility] Last Admin: 09/07/16 06:12 Dose: 40 mg Losartan Potassium (Cozaar -) 25 mg PO DAILY [facility] Last Admin: 09/06/16 09:44 Dose: 25 mg Nepafenac 0.3% Opth (Drops) 1 each OD DAILY [facility] Difluprednate 0.05% (Opth Drops) 1 each OD BID [facility] Warfarin Sodium (Coumadin -) 3 mg PO DAILY@1800 [facility] Zolpidem Tartrate (Ambien -) 5 mg PO HS PRN Last Admin: 09/06/16 22:58 Dose: 5 mg - Objective Vital Signs: Vital Signs Temperature 98.2 F 09/07/16 06:00 Pulse Rate 87 09/07/16 06:00 Respiratory Rate 20 09/07/16 06:00 Blood Pressure 119/47 09/07/16 06:00 O2 Sat by Pulse Oximetry (%) 96 09/06/16 20:04 Neck: Yes: Supple Cardiovascular: Yes: Pulse Irregular, Murmur (Soft decrescendo murmur), S1, S2 Respiratory: Yes: Diminished Gastrointestinal: Yes: Normal Bowel Sounds, Soft. No: Tenderness Edema: Yes Edema: LLE: 2+, RLE: 2+ Additional Findings/Remarks: - Review of Systems Constitutional: denies: Chills Cardiovascular: reports: Shortness of Breath. denies: Chest Pain, Palpitations Respiratory: reports: SOB, SOB on Exertion. denies: Cough, Hemoptysis, Orthopnea, PND Gastrointestinal: denies: Abdominal Pain, Constipation, Diarrhea, Melena, Nausea , Rectal Bleeding, Vomiting Musculoskeletal: denies: Joint Pain Neurological: denies: Dizziness, Headache, Seizure, Syncope Labs: CBC, BMP 09/07/16 06:15 09/07/16 06:15 INR, PTT INR 2.70 (0.82-1.09) H 09/06/16 06:10 Problem List - Problems (1) CHF (congestive heart failure) Code(s): I50.9 - HEART FAILURE, UNSPECIFIED Qualifiers: Congestive heart failure type: diastolic Congestive heart failure chronicity: acute on chronic Qualified Code(s): I50.33 - Acute on chronic diastolic (congestive) heart failure (2) Shortness of breath Code(s): R06.02 - SHORTNESS OF BREATH (3) S/P MVR (mitral valve replacement) Code(s): Z95.2 - PRESENCE OF PROSTHETIC HEART VALVE (4) Rheumatic heart disease Code(s): I09.9 - RHEUMATIC HEART DISEASE, UNSPECIFIED (5) S/P AVR (aortic valve replacement) Code(s): Z95.2 - PRESENCE OF PROSTHETIC HEART VALVE (7) Anemia Code(s): D64.9 - ANEMIA, UNSPECIFIED Qualifiers: Anemia type: iron deficiency (8) Hepatic cirrhosis Code(s): K74.60 - UNSPECIFIED CIRRHOSIS OF LIVER Qualifiers: Hepatic cirrhosis type: unspecified hepatic cirrhosis Ascites presence : without ascites Qualified Code(s): K74.60 - Unspecified cirrhosis of liver Assessment/Plan 1. Clinical presentation c/w acute on chronic LV diastolic failure with NYHA II- III classification heart failure 2. Post MVR and AVR (mechanical prosthesis) with history of rheumatic heart disease 3. Post TVR (bioprosthesis) 4. Permanent atrial fibrillation 5. Anemia 6. History of hepatic cirrhosis and cholelithiasis PLAN: 1. Continue IV Lasix 40 mg BID as tolerated and monitor renal function and electrolytes. Monitor I/Os 2. Continue Coumadin as per INR 3. Continue Cozaar as tolerated. Currently not on beta yuly, but will review medical records from the office 4. Will review cardiac testing result from office if available 5. Monitor cardiac enzymes 6. Monitor CBC (H/H) Further plans are to follow Elio Barroso MD
[2016-09-07] MEDS: LOSARTAN POTASSIUM 50 MG TABLET (FP) PO SCH (10:10)
[2016-09-07] MEDS: FERROUS SO4 325 MG TABLET (FP) PO SCH ×2 (10:10→21:51)
[2016-09-07 12:34] LABS: INR 3.45 (0.82-1.09); PROTHROMBIN TIME (PATIENT) 38.9 SEC (9.98-11.88)
--- NOTE | 2016-09-07 13:24 | PN ---
Progress Note (short form) - Note Progress Note: ID Consult dictated Asymptomatic bacteruria Probable urinary tract colonization, grp G strep Observe off antibiotics
--- NOTE | 2016-09-07 13:34 | PN ---
Progress Note, Physician Chief Complaint: awake alert, family bedside denies chest pain +sob decreased urine output - Current Medication List Current Medications: Active Medications Acetaminophen (Tylenol -) 650 mg PO Q6H PRN PRN Reason: FEVER OR PAIN Artificial Tears (Artificial Tears) 1 drop OD DAILY PRN PRN Reason: DRY EYES Ferrous Sulfate (Feosol -) 325 mg PO BID [facility] Last Admin: 09/07/16 10:10 Dose: 325 mg Furosemide (Lasix Injection -) 40 mg IVPUSH BID@0600,1400 [facility] Last Admin: 09/07/16 06:12 Dose: 40 mg Losartan Potassium (Cozaar -) 25 mg PO DAILY [facility] Last Admin: 09/07/16 10:10 Dose: 25 mg Nepafenac 0.3% Opth (Drops) 1 each OD DAILY [facility] Difluprednate 0.05% (Opth Drops) 1 each OD BID [facility] Warfarin Sodium (Coumadin -) 3 mg PO DAILY@1800 [facility] Zolpidem Tartrate (Ambien -) 5 mg PO [facility] - Objective Vital Signs: Vital Signs Temperature 98.2 F 09/07/16 06:00 Pulse Rate 87 09/07/16 06:00 Respiratory Rate 20 09/07/16 06:00 Blood Pressure 119/47 09/07/16 06:00 O2 Sat by Pulse Oximetry (%) 95 09/07/16 09:00 Constitutional: Yes: Mild Distress Eyes: Yes: WNL HENT: Yes: WNL Neck: Yes: WNL Cardiovascular: Yes: Pulse Irregular, Murmur Respiratory: Yes: On Nasal O2, SOB Gastrointestinal: Yes: WNL Genitourinary: Yes: WNL Musculoskeletal: Yes: Muscle Weakness Edema: Yes Peripheral Pulses WNL: Yes Integumentary: Yes: Rash, Venous Stasis Changes Wound/Incision: Yes: Reddened Neurological: Yes: Weakness ...Motor Strength: WNL Psychiatric: Yes: WNL Labs: CBC, BMP 09/07/16 06:15 09/07/16 06:15 INR, PTT INR 3.45 (0.82-1.09) H 09/07/16 12:00 Problem List - Problems (1) Anemia Code(s): D64.9 - ANEMIA, UNSPECIFIED Qualifiers: Anemia type: iron deficiency (2) CHF (congestive heart failure) Code(s): I50.9 - HEART FAILURE, UNSPECIFIED Qualifiers: Congestive heart failure type: diastolic Congestive heart failure chronicity: acute on chronic Qualified Code(s): I50.33 - Acute on chronic diastolic (congestive) heart failure (3) Elevated serum creatinine Code(s): R79.89 - OTHER SPECIFIED ABNORMAL FINDINGS OF BLOOD CHEMISTRY (4) Hepatic cirrhosis Code(s): K74.60 - UNSPECIFIED CIRRHOSIS OF LIVER Qualifiers: Hepatic cirrhosis type: unspecified hepatic cirrhosis Ascites presence : without ascites Qualified Code(s): K74.60 - Unspecified cirrhosis of liver (5) Rheumatic heart disease Code(s): I09.9 - RHEUMATIC HEART DISEASE, UNSPECIFIED (6) S/P AVR (aortic valve replacement) Code(s): Z95.2 - PRESENCE OF PROSTHETIC HEART VALVE (7) S/P MVR (mitral valve replacement) Code(s): Z95.2 - PRESENCE OF PROSTHETIC HEART VALVE (9) Shortness of breath Code(s): R06.02 - SHORTNESS OF BREATH Assessment/Plan IV LASIX RENAL AND CARDIAC EVAL APPRECIATED VASC SX EVAL FOR STASIS DERMATITIS 02 SUPPORT PULM EVAL
--- NOTE | 2016-09-07 13:46 | PN ---
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 Problem List - Problems (1) RADHA (acute kidney injury) Code(s): N17.9 - ACUTE KIDNEY FAILURE, UNSPECIFIED (2) Anemia Code(s): D64.9 - ANEMIA, UNSPECIFIED Qualifiers: Anemia type: iron deficiency (3) CHF (congestive heart failure) Code(s): I50.9 - HEART FAILURE, UNSPECIFIED Qualifiers: Congestive heart failure type: diastolic Congestive heart failure chronicity: acute on chronic Qualified Code(s): I50.33 - Acute on chronic diastolic (congestive) heart failure (4) Cholelithiasis Code(s): K80.20 - CALCULUS OF GALLBLADDER W/O CHOLECYSTITIS W/O OBSTRUCTION Qualifiers: Cholelithiasis location: gallbladder Cholecystitis presence: without cholecystitis Biliary obstruction: without biliary obstruction Qualified Code(s): K80.20 - Calculus of gallbladder without cholecystitis without obstruction (5) Elevated serum creatinine Code(s): R79.89 - OTHER SPECIFIED ABNORMAL FINDINGS OF BLOOD CHEMISTRY (6) Hepatic cirrhosis Code(s): K74.60 - UNSPECIFIED CIRRHOSIS OF LIVER Qualifiers: Hepatic cirrhosis type: unspecified hepatic cirrhosis Ascites presence : without ascites Qualified Code(s): K74.60 - Unspecified cirrhosis of liver (7) Rheumatic heart disease Code(s): I09.9 - RHEUMATIC HEART DISEASE, UNSPECIFIED (8) S/P AVR (aortic valve replacement) Code(s): Z95.2 - PRESENCE OF PROSTHETIC HEART VALVE (9) S/P MVR (mitral valve replacement) Code(s): Z95.2 - PRESENCE OF PROSTHETIC HEART VALVE (11) Shortness of breath Code(s): R06.02 - SHORTNESS OF BREATH
--- NOTE | 2016-09-07 15:52 | PN ---
Progress Note, Physician History of Present Illness: Pt seen and examined at bedside. She still feels short of breath, particularly when she lays down. - Current Medication List Current Medications: Active Medications Acetaminophen (Tylenol -) 650 mg PO Q6H PRN PRN Reason: FEVER OR PAIN Artificial Tears (Artificial Tears) 1 drop OD DAILY PRN PRN Reason: DRY EYES Ferrous Sulfate (Feosol -) 325 mg PO BID [facility] Last Admin: 09/07/16 10:10 Dose: 325 mg Furosemide (Lasix Injection -) 40 mg IVPUSH BID@0600,1400 [facility] Last Admin: 09/07/16 14:07 Dose: 40 mg Losartan Potassium (Cozaar -) 25 mg PO DAILY [facility] Last Admin: 09/07/16 10:10 Dose: 25 mg Nepafenac 0.3% Opth (Drops) 1 each OD DAILY [facility] Difluprednate 0.05% (Opth Drops) 1 each OD BID [facility] Warfarin Sodium (Coumadin -) 3 mg PO DAILY@1800 [facility] Zolpidem Tartrate (Ambien -) 5 mg PO HS [facility] - Objective Vital Signs: Vital Signs Temperature 98 F 09/07/16 14:08 Pulse Rate 53 L 09/07/16 14:08 Respiratory Rate 20 09/07/16 14:08 Blood Pressure 120/56 09/07/16 14:08 O2 Sat by Pulse Oximetry (%) 95 09/07/16 09:00 Constitutional: Yes: Calm HENT: Yes: Normocephalic Cardiovascular: Yes: S1, S2 Respiratory: Yes: Diminished, On Nasal O2 Gastrointestinal: Yes: Soft Genitourinary: Yes: WNL Musculoskeletal: Yes: Muscle Weakness Edema: Yes Edema: LLE: 2+, RLE: 2+ Neurological: Yes: Oriented Psychiatric: Yes: Oriented Labs: CBC, BMP 09/07/16 06:15 09/07/16 06:15 INR, PTT INR 3.45 (0.82-1.09) H 09/07/16 12:00 Problem List - Problems (1) Anemia Code(s): D64.9 - ANEMIA, UNSPECIFIED Qualifiers: Anemia type: iron deficiency (2) CHF (congestive heart failure) Code(s): I50.9 - HEART FAILURE, UNSPECIFIED Qualifiers: Congestive heart failure type: diastolic Congestive heart failure chronicity: acute on chronic Qualified Code(s): I50.33 - Acute on chronic diastolic (congestive) heart failure (3) Cholelithiasis Code(s): K80.20 - CALCULUS OF GALLBLADDER W/O CHOLECYSTITIS W/O OBSTRUCTION Qualifiers: Cholelithiasis location: gallbladder Cholecystitis presence: without cholecystitis Biliary obstruction: without biliary obstruction Qualified Code(s): K80.20 - Calculus of gallbladder without cholecystitis without obstruction (4) Hepatic cirrhosis Code(s): K74.60 - UNSPECIFIED CIRRHOSIS OF LIVER Qualifiers: Hepatic cirrhosis type: unspecified hepatic cirrhosis Ascites presence : without ascites Qualified Code(s): K74.60 - Unspecified cirrhosis of liver (5) S/P AVR (aortic valve replacement) Code(s): Z95.2 - PRESENCE OF PROSTHETIC HEART VALVE (6) S/P MVR (mitral valve replacement) Code(s): Z95.2 - PRESENCE OF PROSTHETIC HEART VALVE (8) Shortness of breath Code(s): R06.02 - SHORTNESS OF BREATH (9) RADHA (acute kidney injury) Code(s): N17.9 - ACUTE KIDNEY FAILURE, UNSPECIFIED Assessment/Plan Current Medications Generic Name Dose Route Start Last Admin Trade Name Freq PRN Reason Stop Dose Admin Acetaminophen 650 mg 09/05/16 20:01 Tylenol - PO Q6H PRN FEVER OR PAIN Artificial Tears 1 drop 09/05/16 20:04 Artificial Tears OD DAILY PRN DRY EYES Ferrous Sulfate 325 mg 09/05/16 22:00 09/07/16 10:10 Feosol - PO 325 mg BID ABELARDO Administration Furosemide 40 mg 09/06/16 14:00 09/07/16 14:07 Lasix Injection - IVPUSH 40 mg BID@0600,1400 ABELARDO Administration Losartan Potassium 25 mg 09/06/16 10:00 09/07/16 10:10 Cozaar - PO 25 mg DAILY ABELARDO Administration Nepafenac 0.3% Opth 1 each 09/06/16 10:00 Drops OD DAILY ABEL[facility]O Difluprednate 0.05% 1 each 09/06/16 10:00 Opth Drops OD BID [facility]O Warfarin Sodium 3 mg 09/06/16 18:00 Coumadin - PO DAILY@1800 [facility] Zolpidem Tartrate 5 mg 09/07/16 22:00 Ambien - PO HS ABELARDO Impression 1. RADHA 2. aortic valve replacement 3. mitral valve replacement 4. tricuspid valve replacement 5. CHF 6. a-fib 7. anemia 8. hx GI bleed 9. HTN Plan - repeat labs in am - follow up renal ultrasound - will hold tomorrow dose of cozaar until I review her am labs - cont lasix - cardio input appreciated - likely cardiorenal - unclear why not on beta yuly, will discussed with cardio/pulm Dr Bo
[2016-09-07] MEDS: ZOLPIDEM TARTRATE 5 MG TABLET PO SCH (21:52)
[2016-09-07] MEDS: OPTH OD SCH (21:52)
[2016-09-07] MEDS: DUREZOL 0.05% OD SCH (21:52)
[2016-09-07] MEDS ORDERED: PT OWN MED DRAWER 7, Y5N ONE (21:58)
--- NOTE | 2016-09-07 22:24 | CONS ---
DATE OF CONSULTATION: DATE OF DICTATION: 09/07/2016 INFECTIOUS DISEASE CONSULTATION REASON FOR CONSULTATION: An 85-year-old female evaluated for positive urine culture. HISTORY OF PRESENT ILLNESS: She was admitted to the hospital September 05, 2016, with increasing shortness of breath and lower extremity edema. She was diagnosed with decompensated congestive heart failure. A urine culture done on admission is positive for group G Streptococcus 10 to 20 thousand colonies. She has no complaints of any urinary tract symptoms. She denies any dysuria or hematuria. No frequency or urgency. No suprapubic or flank pain. She is afebrile with a normal white blood cell count. Of note, the patient had a history of urinary tract colonization in the past. PAST MEDICAL HISTORY: Positive for coronary artery disease, valvular heart disease, atrial fibrillation, chronic anemia, GI bleed, congestive heart failure, hypertension, chronic liver disease, cholelithiasis, chronic venous stasis, dermatitis. PAST SURGICAL HISTORY: Status post mechanical mitral and aortic valve replacement and bioprosthetic tricuspid valve replacement. ALLERGIES: CLINDAMYCIN, VANCOMYCIN, and PENICILLIN. Patient reports rash with these agents. No history of anaphylaxis. MEDICATION: Include Tylenol, Cozaar, Coumadin, Ambien, Feosol, Lasix. SOCIAL HISTORY: Resides at home. Former smoker. SYSTEMS REVIEW: Neurologic: No loss of consciousness, seizure activity, or focal weakness. Cardiac: As per HPI. Respiratory: As per HPI. Gastrointestinal: Negative vomiting or diarrhea. Genitourinary: As per HPI. LABORATORY DATA: White count 4.6, hematocrit 28.2, platelet count 202, BUN 57, creatinine 1.4. Urinalysis 2 white cells. Urine culture group G Streptococcus 10 to 20 thousand colonies. Chest x-ray shows cardiomegaly. PHYSICAL EXAMINATION: General: The patient is awake and alert, seated in bed, eating lunch, in no acute distress . Vital signs: Temperature 98.2, blood pressure 119/47, pulse 87 regular, respirations 20 per minute. HEENT: Sclerae anicteric. Cardiovascular: Heart sounds S1, S2. Positive mechanical valve murmur. Respiratory: Lungs crepitations at the bases bilaterally. Abdomen: Obese. Soft. Nontender. No suprapubic or flank tenderness. Extremities: Positive for edema and chronic venous stasis dermatitis. IMPRESSION: 1. Asymptomatic bacteruria. 2. Probable urinary tract colonization with group G Streptococcus. 3. Congestive heart failure. 4. Massive cardiomegaly. 5. Status post valve replacement. Positive urine culture likely represents colonization. Of note, urine isolate observe off antibiotic therapy. Case discussed with patient's son present at the time of the examination. Thank you for the kind referral. STEVEN GOMEZ M.D. [id number]
--- NOTE | 2016-09-07 22:48 | CONS ---
DATE OF CONSULTATION: 09/07/2016 PULMONARY CONSULTATION REFERRING PHYSICIAN: Braeden Dimas M.D. HISTORY OF PRESENT ILLNESS: The patient is an 85-year-old white female with extensive past medical history which includes valvular heart disease status post triple valve replacement, aortic, mitral and tricuspid. History of atrial fibrillation, CHF, cirrhosis, GI bleed, anemia, hypertension, history of tobacco use many years ago, admitted to [facility] for increasing shortness of breath, dyspnea on exertion, orthopnea. Patient denied any chest pain, nausea, vomiting, diaphoresis. Patient states for the past few days started to feel increasing shortness of breath, dyspnea on exertion, presented to the emergency department. In the ER, she was felt to be in acute congestive heart failure. Admitted to the telemetry unit, she was started on IV Lasix. She denies any fevers, chills. Denies any chronic cough or hemoptysis. Denies any recent travel. There is no COPD or PE in the past. Denies any history of occupational exposures to chemicals or fumes. PAST MEDICAL HISTORY: Again includes atrial fibrillation, valvular heart disease status post aortic and mitral valve, bioprosthetic tricuspid valve, cirrhosis, GI bleed, anemia, hypertension. REVIEW OF SYSTEMS: Positive for orthopnea. Positive for dyspnea. Negative for chest pain. No cough. No hemoptysis. No GI complaints. Positive for lower extremity edema. CURRENT MEDICATIONS: Include , losartan, Coumadin, Ambien, artificial tears, Lasix, and Feosol. PHYSICAL EXAMINATION: General: The patient is an elderly white female, well-developed, awake, alert, in no acute distress. Vital signs: She is currently afebrile. Blood pressure 119/47, respiratory rate 20, heart rate 87 and irregular, O2 saturation is 98% on 4 L. HEENT: Head is normocephalic, atraumatic. Neck: Supple. Heart: Regular. Normal S1, S2. Chest: Bibasilar crackles, left greater than right. Abdomen: Soft. Bowel sounds positive. Extremities: No cyanosis, edema. LABORATORY: WBC 4.6, hemoglobin 8.9, hematocrit 28.2, platelet count 202,000. INR 3.45. BUN 57, creatinine 1.4. BNP 2350. Chest x-ray is cardiomegaly. Pulmonary vascular congestion bilaterally. IMPRESSION: 1. Dyspnea secondary to mild decompensated congestive heart failure. 2. Valvular heart disease status post triple valve replacement. 3. Atrial fibrillation. 4. Hypertension. 5. [id number] renal kidney injury. 6. History of rheumatic heart disease. 7. History of hepatic cirrhosis. 8. Anemia. PLAN: IV Lasix. Supplemental O2. Rate control. Continue anticoagulation. Follow up chest x-rays. Monitor CBC. Daily weights. Adam [id number]
[2016-09-08] MEDS: FUROSEMIDE 40 MG/4 ML INJECTABLE VIAL IVPUSH SCH ×2 (06:06→13:42)
[2016-09-08 07:45] LABS: BASOPHIL 0.7 % (0-2.0); EOSINOPHIL 3.5 % (0-4.5); MCH 28.7 pg (25.7-33.7); MCHC 31.7 g/dl (32.0-36.0); MEAN CELL VOLUME 90.6 fl (80-96); MEAN PLT VOLUME 9.6 fl (7.5-11.1); NEUTROPHILS 72.5 % (42.8-82.8); PLATELET COUNT 179 K/MM3 (134-434); RDW 15.9 % (11.6-15.6); WHITE BLOOD COUNT 5.3 K/mm3 (4.0-10.0)
[2016-09-08 08:34] LABS: ALBUMIN 3.2 g/dl (3.4-5.0); BILIRUBIN,TOTAL 0.8 mg/dL (0.2-1.0); CALCIUM 8.2 mg/dL (8.5-10.1); CREATININE 1.4 mg/dL (0.55-1.02); TOT PROT 6.6 g/dl (6.4-8.2)
--- NOTE | 2016-09-08 08:52 | PN ---
Progress Note, Physician History of Present Illness: Orthopnea and dyspnea improving with diuresis. - Current Medication List Current Medications: Active Medications Acetaminophen (Tylenol -) 650 mg PO Q6H PRN PRN Reason: FEVER OR PAIN Artificial Tears (Artificial Tears) 1 drop OD DAILY PRN PRN Reason: DRY EYES Ferrous Sulfate (Feosol -) 325 mg PO BID [facility] Last Admin: 09/07/16 21:51 Dose: 325 mg Furosemide (Lasix Injection -) 40 mg IVPUSH BID@0600,1400 [facility] Last Admin: 09/08/16 06:06 Dose: 40 mg Losartan Potassium (Cozaar -) 25 mg PO DAILY [facility] Last Admin: 09/07/16 10:10 Dose: 25 mg Nepafenac 0.3% Opth (Drops) 1 each OD DAILY [facility] Durezol 0.05% Opth Drops - Patient Own Med 1 each OD BID [facility] Last Admin: 09/07/16 21:52 Dose: 1 each Warfarin Sodium (Coumadin -) 3 mg PO DAILY@1800 [facility] Zolpidem Tartrate (Ambien -) 5 mg PO HS [facility] Last Admin: 09/07/16 21:52 Dose: 5 mg - Objective Vital Signs: Vital Signs Temperature 98.6 F 09/08/16 06:00 Pulse Rate 57 L 09/08/16 06:00 Respiratory Rate 20 09/08/16 06:00 Blood Pressure 107/47 09/08/16 06:00 O2 Sat by Pulse Oximetry (%) 99 09/07/16 21:00 Constitutional: Yes: No Distress, Calm Neck: Yes: Supple Cardiovascular: Yes: Pulse Irregular, Murmur (1/6 SM), Other (Snyder mechanical valve sounds) Respiratory: Yes: Regular, Diminished Gastrointestinal: Yes: Normal Bowel Sounds, Soft Edema: Yes Edema: LLE: 2+, RLE: 2+ Integumentary: Yes: Venous Stasis Changes Labs: CBC, BMP 09/08/16 05:45 09/08/16 05:45 INR, PTT INR 3.45 (0.82-1.09) H 09/07/16 12:00 - ....Imaging Chest X-ray: Report Reviewed (Improved CHF) Ultrasound: Report Reviewed (Atrophic right kidney, no hydronephrosis) EKG: Report Reviewed Problem List - Problems (1) RADHA (acute kidney injury) Code(s): N17.9 - ACUTE KIDNEY FAILURE, UNSPECIFIED (2) CHF (congestive heart failure) Code(s): I50.9 - HEART FAILURE, UNSPECIFIED Qualifiers: Congestive heart failure type: diastolic Congestive heart failure chronicity: acute on chronic Qualified Code(s): I50.33 - Acute on chronic diastolic (congestive) heart failure (3) Rheumatic heart disease Code(s): I09.9 - RHEUMATIC HEART DISEASE, UNSPECIFIED (4) S/P AVR (aortic valve replacement) Code(s): Z95.2 - PRESENCE OF PROSTHETIC HEART VALVE (5) S/P MVR (mitral valve replacement) Code(s): Z95.2 - PRESENCE OF PROSTHETIC HEART VALVE (7) Shortness of breath Code(s): R06.02 - SHORTNESS OF BREATH (8) Permanent atrial fibrillation Code(s): I48.2 - CHRONIC ATRIAL FIBRILLATION (9) Pulmonary hypertension Code(s): I27.2 - OTHER SECONDARY PULMONARY HYPERTENSION (10) Venous stasis dermatitis of both lower extremities Code(s): I83.11 - VARICOSE VEINS OF RIGHT LOWER EXTREMITY WITH INFLAMMATION I83.12 - VARICOSE VEINS OF LEFT LOWER EXTREMITY WITH INFLAMMATION Assessment/Plan 03/22/2015 Preserved LV fxn with mild cLVH, mech MV, AV and bioprosthetic TV, severe pulm HTN, severe DELBERT, mod-severe MR, mod TR, mild HI, tr-mild AR 1. Acute on chronic LV diastolic failure, pulmonary hypertension with NYHA II- III classification heart failure 2. Post MVR and AVR (mechanical prosthesis) with history of rheumatic heart disease 3. Post TVR (bioprosthesis) 4. Permanent atrial fibrillation with slow ventricular response 5. Anemia 6. History of hepatic cirrhosis, cholelithiasis, GI bleed 7. Acute on CKD PLAN: 1. Continue Lasix 40 mg IV BID as tolerated and monitor diuretic response, renal function and electrolytes. 2. Continue Coumadin as per INR 3. Continue Cozaar 25 qd as tolerated. Not on beta yuly chronically given h/ o slow afib
[2016-09-08 09:27] LABS: INR 3.31 (0.82-1.09); PROTHROMBIN TIME (PATIENT) 37.3 SEC (9.98-11.88)
--- NOTE | 2016-09-08 10:31 | PN ---
Progress Note, Physician Chief Complaint: DYSPNEA FEELS FINE WHEN IN BED SOB WHEN AMBULATE - Current Medication List Current Medications: Active Medications Acetaminophen (Tylenol -) 650 mg PO Q6H PRN PRN Reason: FEVER OR PAIN Artificial Tears (Artificial Tears) 1 drop OD DAILY PRN PRN Reason: DRY EYES Ferrous Sulfate (Feosol -) 325 mg PO BID [facility] Last Admin: 09/07/16 21:51 Dose: 325 mg Furosemide (Lasix Injection -) 40 mg IVPUSH BID@0600,1400 [facility] Last Admin: 09/08/16 06:06 Dose: 40 mg Losartan Potassium (Cozaar -) 25 mg PO DAILY [facility] Last Admin: 09/07/16 10:10 Dose: 25 mg Nepafenac 0.3% Opth (Drops) 1 each OD DAILY [facility] Durezol 0.05% Opth Drops - Patient Own Med 1 each OD BID [facility] Last Admin: 09/07/16 21:52 Dose: 1 each Warfarin Sodium (Coumadin -) 3 mg PO DAILY@1800 [facility] Zolpidem Tartrate (Ambien -) 5 mg PO HS [facility] Last Admin: 09/07/16 21:52 Dose: 5 mg - Objective Vital Signs: Vital Signs Temperature 98.6 F 09/08/16 06:00 Pulse Rate 57 L 09/08/16 06:00 Respiratory Rate 20 09/08/16 06:00 Blood Pressure 107/47 09/08/16 06:00 O2 Sat by Pulse Oximetry (%) 99 09/07/16 21:00 Eyes: Yes: PERRL Cardiovascular: Yes: S1, S2 Respiratory: Yes: Wheezes Gastrointestinal: Yes: Normal Bowel Sounds, Soft Edema: Yes Labs: CBC, BMP 09/08/16 05:45 09/08/16 05:45 INR, PTT INR 3.31 (0.82-1.09) H 09/08/16 05:45 Problem List - Problems (1) Anemia Code(s): D64.9 - ANEMIA, UNSPECIFIED Qualifiers: Anemia type: iron deficiency (2) CHF (congestive heart failure) Code(s): I50.9 - HEART FAILURE, UNSPECIFIED Qualifiers: Congestive heart failure type: diastolic Congestive heart failure chronicity: acute on chronic Qualified Code(s): I50.33 - Acute on chronic diastolic (congestive) heart failure (3) Elevated serum creatinine Code(s): R79.89 - OTHER SPECIFIED ABNORMAL FINDINGS OF BLOOD CHEMISTRY (4) Hepatic cirrhosis Code(s): K74.60 - UNSPECIFIED CIRRHOSIS OF LIVER Qualifiers: Hepatic cirrhosis type: unspecified hepatic cirrhosis Ascites presence : without ascites Qualified Code(s): K74.60 - Unspecified cirrhosis of liver (5) Rheumatic heart disease Code(s): I09.9 - RHEUMATIC HEART DISEASE, UNSPECIFIED (6) S/P AVR (aortic valve replacement) Code(s): Z95.2 - PRESENCE OF PROSTHETIC HEART VALVE (7) S/P MVR (mitral valve replacement) Code(s): Z95.2 - PRESENCE OF PROSTHETIC HEART VALVE (8) Shortness of breath Code(s): R06.02 - SHORTNESS OF BREATH Assessment/Plan (1) Anemia Code(s): D64.9 - ANEMIA, UNSPECIFIED Qualifiers: Anemia type: iron deficiency HGB 8.6 (2) CHF (congestive heart failure) Code(s): I50.9 - HEART FAILURE, UNSPECIFIED Qualifiers: Congestive heart failure type: diastolic Congestive heart failure chronicity: acute on chronic Qualified Code(s): I50.33 - Acute on chronic diastolic (congestive) heart failure APPRECIATE CARDIO CONSULT (3) Elevated serum creatinine Code(s): R79.89 - OTHER SPECIFIED ABNORMAL FINDINGS OF BLOOD CHEMISTRY STABLE Cr 1.4 RENAL ON CASE (4) Hepatic cirrhosis Code(s): K74.60 - UNSPECIFIED CIRRHOSIS OF LIVER Qualifiers: Hepatic cirrhosis type: unspecified hepatic cirrhosis Ascites presence : without ascites Qualified Code(s): K74.60 - Unspecified cirrhosis of liver (5) Rheumatic heart disease Code(s): I09.9 - RHEUMATIC HEART DISEASE, UNSPECIFIED (6) S/P AVR (aortic valve replacement) Code(s): Z95.2 - PRESENCE OF PROSTHETIC HEART VALVE (7) S/P MVR (mitral valve replacement) Code(s): Z95.2 - PRESENCE OF PROSTHETIC HEART VALVE INR 3.3 (GOAL 2.5 TO 3.5) ON WARFARIN 3mg (9) Shortness of breath Code(s): R06.02 - SHORTNESS OF BREATH APPRECIATE PULM CONSULT (10) ABNL UCx UCx +micha APPRECIATE ID CONSULT OBSERVE OFF ABx REMOTE INPATIENT CODER FM
[2016-09-08] MEDS: FERROUS SO4 325 MG TABLET (FP) PO SCH ×2 (10:41→21:45)
[2016-09-08] MEDS ORDERED: PT OWN MED DRAWER 7, Y5N ONE ×2 (10:43→22:01)
[2016-09-08] MEDS: OPTH OD SCH ×2 (10:45→21:45)
[2016-09-08] MEDS: DUREZOL 0.05% OD SCH ×2 (10:45→21:45)
--- NOTE | 2016-09-08 12:13 | PN ---
Progress Note, Physician History of Present Illness: pulmonary awake,alert,less dyspneic - Current Medication List Current Medications: Active Medications Acetaminophen (Tylenol -) 650 mg PO Q6H PRN PRN Reason: FEVER OR PAIN Albuterol Sulfate (Ventolin 0.083% Nebulizer Soln -) 1 amp NEB Q4H PRN PRN Reason: SHORT OF BREATH/WHEEZING Artificial Tears (Artificial Tears) 1 drop OD DAILY PRN PRN Reason: DRY EYES Ferrous Sulfate (Feosol -) 325 mg PO BID [facility] Last Admin: 09/08/16 10:41 Dose: 325 mg Furosemide (Lasix Injection -) 40 mg IVPUSH BID@0600,1400 [facility] Last Admin: 09/08/16 06:06 Dose: 40 mg Losartan Potassium (Cozaar -) 25 mg PO DAILY [facility] Last Admin: 09/07/16 10:10 Dose: 25 mg Nepafenac 0.3% Opth (Drops) 1 each OD DAILY [facility] Durezol 0.05% Opth Drops - Patient Own Med 1 each OD BID [facility] Last Admin: 09/08/16 10:45 Dose: 1 each Warfarin Sodium (Coumadin -) 3 mg PO DAILY@1800 [facility] Zolpidem Tartrate (Ambien -) 5 mg PO HS [facility] Last Admin: 09/07/16 21:52 Dose: 5 mg - Objective Vital Signs: Vital Signs Temperature 98.6 F 09/08/16 06:00 Pulse Rate 92 H 09/08/16 11:36 Respiratory Rate 20 09/08/16 06:00 Blood Pressure 107/47 09/08/16 06:00 O2 Sat by Pulse Oximetry (%) 98 09/08/16 11:36 Constitutional: Yes: Calm, Thin Eyes: Yes: WNL HENT: Yes: WNL Neck: Yes: WNL Cardiovascular: Yes: Pulse Irregular, S1, S2 Respiratory: Yes: Rales Gastrointestinal: Yes: Normal Bowel Sounds, Soft Extremities: Yes: WNL Edema: Yes Labs: CBC, BMP 09/08/16 05:45 09/08/16 05:45 INR, PTT INR 3.31 (0.82-1.09) H 09/08/16 05:45 - ....Imaging Chest X-ray: Report Reviewed, Image Reviewed (LESS CONGESTION) Problem List - Problems (1) RADHA (acute kidney injury) Code(s): N17.9 - ACUTE KIDNEY FAILURE, UNSPECIFIED (2) Anemia Code(s): D64.9 - ANEMIA, UNSPECIFIED Qualifiers: Anemia type: iron deficiency (3) CHF (congestive heart failure) Code(s): I50.9 - HEART FAILURE, UNSPECIFIED Qualifiers: Congestive heart failure type: diastolic Congestive heart failure chronicity: acute on chronic Qualified Code(s): I50.33 - Acute on chronic diastolic (congestive) heart failure (4) Cholelithiasis Code(s): K80.20 - CALCULUS OF GALLBLADDER W/O CHOLECYSTITIS W/O OBSTRUCTION Qualifiers: Cholelithiasis location: gallbladder Cholecystitis presence: without cholecystitis Biliary obstruction: without biliary obstruction Qualified Code(s): K80.20 - Calculus of gallbladder without cholecystitis without obstruction (5) Elevated serum creatinine Code(s): R79.89 - OTHER SPECIFIED ABNORMAL FINDINGS OF BLOOD CHEMISTRY (6) Hepatic cirrhosis Code(s): K74.60 - UNSPECIFIED CIRRHOSIS OF LIVER Qualifiers: Hepatic cirrhosis type: unspecified hepatic cirrhosis Ascites presence : without ascites Qualified Code(s): K74.60 - Unspecified cirrhosis of liver (7) Rheumatic heart disease Code(s): I09.9 - RHEUMATIC HEART DISEASE, UNSPECIFIED (8) S/P AVR (aortic valve replacement) Code(s): Z95.2 - PRESENCE OF PROSTHETIC HEART VALVE (9) S/P MVR (mitral valve replacement) Code(s): Z95.2 - PRESENCE OF PROSTHETIC HEART VALVE (11) Shortness of breath Code(s): R06.02 - SHORTNESS OF BREATH Assessment/Plan IMP CHF IMPROVING VALVULAR HD S/P MVR,AVR,TVR HTN AFIB ACUTE ON CHRONIC KIDNEY INJURY H/O CIRRHOSIS H/O RHEUMATIC HEART DISEASE PLAN CONTINUE LASIX SUPPLEMENTAL O2 DAILY WTS ANTICOAGULATION F/U CHEST X-RAYS MONITOR LYTES,RENAL FUNCTION DR BOUCHER Problem List - Problems (1) RADHA (acute kidney injury) Code(s): N17.9 - ACUTE KIDNEY FAILURE, UNSPECIFIED (2) Anemia Code(s): D64.9 - ANEMIA, UNSPECIFIED Qualifiers: Anemia type: iron deficiency (3) CHF (congestive heart failure) Code(s): I50.9 - HEART FAILURE, UNSPECIFIED Qualifiers: Congestive heart failure type: diastolic Congestive heart failure chronicity: acute on chronic Qualified Code(s): I50.33 - Acute on chronic diastolic (congestive) heart failure (4) Cholelithiasis Code(s): K80.20 - CALCULUS OF GALLBLADDER W/O CHOLECYSTITIS W/O OBSTRUCTION Qualifiers: Cholelithiasis location: gallbladder Cholecystitis presence: without cholecystitis Biliary obstruction: without biliary obstruction Qualified Code(s): K80.20 - Calculus of gallbladder without cholecystitis without obstruction (5) Elevated serum creatinine Code(s): R79.89 - OTHER SPECIFIED ABNORMAL FINDINGS OF BLOOD CHEMISTRY (6) Hepatic cirrhosis Code(s): K74.60 - UNSPECIFIED CIRRHOSIS OF LIVER Qualifiers: Hepatic cirrhosis type: unspecified hepatic cirrhosis Ascites presence : without ascites Qualified Code(s): K74.60 - Unspecified cirrhosis of liver (7) Rheumatic heart disease Code(s): I09.9 - RHEUMATIC HEART DISEASE, UNSPECIFIED (8) S/P AVR (aortic valve replacement) Code(s): Z95.2 - PRESENCE OF PROSTHETIC HEART VALVE (9) S/P MVR (mitral valve replacement) Code(s): Z95.2 - PRESENCE OF PROSTHETIC HEART VALVE (11) Shortness of breath Code(s): R06.02 - SHORTNESS OF BREATH
--- NOTE | 2016-09-08 15:19 | PN ---
Progress Note, Physician History of Present Illness: Pt seen and examined at bedside. She is awake and alert. She does not feel that the sob is improved today. - Current Medication List Current Medications: Active Medications Acetaminophen (Tylenol -) 650 mg PO Q6H PRN PRN Reason: FEVER OR PAIN Albuterol Sulfate (Ventolin 0.083% Nebulizer Soln -) 1 amp NEB Q4H PRN PRN Reason: SHORT OF BREATH/WHEEZING Artificial Tears (Artificial Tears) 1 drop OD DAILY PRN PRN Reason: DRY EYES Ferrous Sulfate (Feosol -) 325 mg PO BID [facility] Last Admin: 09/08/16 10:41 Dose: 325 mg Furosemide (Lasix Injection -) 40 mg IVPUSH BID@0600,1400 [facility] Last Admin: 09/08/16 13:42 Dose: 40 mg Losartan Potassium (Cozaar -) 25 mg PO DAILY [facility] Last Admin: 09/07/16 10:10 Dose: 25 mg Nepafenac 0.3% Opth (Drops) 1 each OD DAILY [facility] Durezol 0.05% Opth Drops - Patient Own Med 1 each OD BID [facility] Last Admin: 09/08/16 10:45 Dose: 1 each Warfarin Sodium (Coumadin -) 3 mg PO DAILY@1800 [facility] Zolpidem Tartrate (Ambien -) 5 mg PO HS [facility] Last Admin: 09/07/16 21:52 Dose: 5 mg - Objective Vital Signs: Vital Signs Temperature 98.6 F 09/08/16 06:00 Pulse Rate 92 H 09/08/16 11:36 Respiratory Rate 20 09/08/16 06:00 Blood Pressure 107/47 09/08/16 06:00 O2 Sat by Pulse Oximetry (%) 98 09/08/16 11:36 Constitutional: Yes: Calm Eyes: Yes: Conjunctiva Clear Cardiovascular: Yes: Pulse Irregular, Murmur, S1, S2 Respiratory: Yes: Diminished, On Nasal O2 Gastrointestinal: Yes: WNL Musculoskeletal: Yes: Muscle Weakness Edema: Yes Edema: LLE: 2+, RLE: 2+ Neurological: Yes: Oriented Psychiatric: Yes: Oriented Labs: CBC, BMP 09/08/16 05:45 09/08/16 05:45 INR, PTT INR 3.31 (0.82-1.09) H 09/08/16 05:45 Problem List - Problems (1) Anemia Code(s): D64.9 - ANEMIA, UNSPECIFIED Qualifiers: Anemia type: iron deficiency (2) CHF (congestive heart failure) Code(s): I50.9 - HEART FAILURE, UNSPECIFIED Qualifiers: Congestive heart failure type: diastolic Congestive heart failure chronicity: acute on chronic Qualified Code(s): I50.33 - Acute on chronic diastolic (congestive) heart failure (3) Cholelithiasis Code(s): K80.20 - CALCULUS OF GALLBLADDER W/O CHOLECYSTITIS W/O OBSTRUCTION Qualifiers: Cholelithiasis location: gallbladder Cholecystitis presence: without cholecystitis Biliary obstruction: without biliary obstruction Qualified Code(s): K80.20 - Calculus of gallbladder without cholecystitis without obstruction (4) Hepatic cirrhosis Code(s): K74.60 - UNSPECIFIED CIRRHOSIS OF LIVER Qualifiers: Hepatic cirrhosis type: unspecified hepatic cirrhosis Ascites presence : without ascites Qualified Code(s): K74.60 - Unspecified cirrhosis of liver (5) S/P AVR (aortic valve replacement) Code(s): Z95.2 - PRESENCE OF PROSTHETIC HEART VALVE (6) S/P MVR (mitral valve replacement) Code(s): Z95.2 - PRESENCE OF PROSTHETIC HEART VALVE (8) Shortness of breath Code(s): R06.02 - SHORTNESS OF BREATH (9) RADHA (acute kidney injury) Code(s): N17.9 - ACUTE KIDNEY FAILURE, UNSPECIFIED Assessment/Plan Current Medications Generic Name Dose Route Start Last Admin Trade Name Freq PRN Reason Stop Dose Admin Acetaminophen 650 mg 09/05/16 20:01 Tylenol - PO Q6H PRN FEVER OR PAIN Albuterol Sulfate 1 amp 09/08/16 10:48 Ventolin 0.083% Nebulizer Soln - NEB Q4H PRN SHORT OF BREATH/WHEEZING Artificial Tears 1 drop 09/05/16 20:04 Artificial Tears OD DAILY PRN DRY EYES Ferrous Sulfate 325 mg 09/05/16 22:00 09/08/16 10:41 Feosol - PO 325 mg BID [facility] Administration Furosemide 40 mg 09/06/16 14:00 09/08/16 13:42 Lasix Injection - IVPUSH 40 mg BID@0600,1400 [facility] Administration Losartan Potassium 25 mg 09/06/16 10:00 09/07/16 10:10 Cozaar - PO 25 mg DAILY [facility] Administration Nepafenac 0.3% Opth 1 each 09/06/16 10:00 Drops OD DAILY [facility] Durezol 0.05% Opth 1 each 09/07/16 22:00 09/08/16 10:45 Drops - Patient Own OD 1 each Med BID [facility] Administration Warfarin Sodium 3 mg 09/06/16 18:00 Coumadin - PO DAILY@1800 [facility] Zolpidem Tartrate 5 mg 09/07/16 22:00 09/07/16 21:52 Ambien - PO 5 mg HS [facility] Administration Impression 1. RADHA 2. aortic valve replacement 3. mitral valve replacement 4. tricuspid valve replacement 5. CHF 6. a-fib 7. anemia 8. hx GI bleed 9. HTN Plan - cont with lasix - will hold cozaar as potassium is trending up and manager of medical is elevated above baseline - repeat labs in am - atrophic kidney on ultrasound - cardio input appreciated - likely cardiorenal Dr Bo
[2016-09-08] MEDS: ALBUTEROL SO4 0.083% IH SOL 2.5 MG/3 ML VIAL.NEB. NEB PRN (16:10)
--- NOTE | 2016-09-08 19:02 | CONSULT ---
Consult - Past Medical History Cardio/Vascular: Yes: AFIB, Aortic Insufficiency, Mitral Insufficiency, Other ( Rheumatic heart disease) Gastrointestinal: Yes: GI Bleed, Peptic Ulcer Disease, Other (AV malformation) Hepatobiliary: Yes: Cirrhosis, Cholelithiasis - Past Surgical History Past Surgical History: Yes: Valve Replacement (Mechanical AVR, MVR, bioprosthetic TVR) - Alcohol/Substance Use Hx Alcohol Use: Yes (seldom) - Smoking History Smoking history: Former smoker Have you smoked in the past 12 months: No Aproximately how many cigarettes per day: 0 If you are a former smoker, when did you quit?: 2013 Home Medications - Allergies Allergies/Adverse Reactions: Allergies Allergy/AdvReac Type Severity Reaction Status Date / Time clindamycin Allergy Mild Verified 09/05/16 16:21 Penicillins Allergy Mild Verified 09/05/16 16:21 vancomycin Allergy Mild Verified 09/05/16 16:21 PLASTIC TAPE Allergy Rash Uncoded 09/05/16 16:21 - Home Medications Home Medications: Ambulatory Orders Ferrous Sulfate [Feosol] 325 mg PO BID 04/25/13 Furosemide [Lasix -] 40 mg PO DAILY 07/28/13 Calcium Citrate/Vitamin D3 [Calcitrate + Vit D Caplet] 1 each PO BID 09/05/16 Difluprednate [Durezol] 1 drop OP BID 09/05/16 Losartan Potassium [Cozaar -] 25 mg PO DAILY 09/05/16 Nepafenac [Ilevro] 1 drop OP DAILY 09/05/16 Non-Formulary 1 tab PO DAILY 09/05/16 Warfarin Sodium [Coumadin] 3 mg PO ASDIR 09/05/16 Family Disease History - Family Disease History Other Family History: History of HTN Physical Exam Vital Signs: Vital Signs Temperature 98.6 F 09/08/16 06:00 Pulse Rate 92 H 09/08/16 11:36 Respiratory Rate 20 09/08/16 06:00 Blood Pressure 107/47 09/08/16 06:00 O2 Sat by Pulse Oximetry (%) 98 09/08/16 11:36 Labs: CBC, BMP 09/08/16 05:45 09/08/16 05:45 Assessment/Plan Vascular Surgery 85 Y/O FEMALE WELL KNOWN TO OUR PRACTICE WITH HISTORY OF MULTIPLE CARDIAC VALVE REPLACEMENTS 25 YEARS AGO. PATIENT ON COUMADIN, IATOGENIC CIRRHOSIS, VENOUS STASIS DERMATITIS, UNSTEADY GAIT PRESENTED TO MY OFFICE 2 DAYS AGO WITH DYSPNEA/ WEAKNESS, AFTER CAREFULLY REVIEWING HER LABS I CALLED HER AND TOLD HER TO COME TO ED FOR ADMISSION. PATIENT HAD ELEVATED BUN/CREAT AND ELEVATED BNP. History Source: Patient - Past Medical History Cardiovascular: Yes: AFIB, Aortic Insufficiency, Mitral Insufficiency, Other ( Rheumatic heart disease) Gastrointestinal: Yes: GI Bleed, Peptic Ulcer Disease, Other (AV malformation) Hepatobiliary: Yes: Cirrhosis, Cholelithiasis - Past Surgical History Past Surgical History: Yes: Valve Replacement (Mechanical AVR, MVR, bioprosthetic TVR) - Smoking History Smoking history: Former smoker Have you smoked in the past 12 months: No Aproximately how many cigarettes per day: 0 If you are a former smoker, when did you quit?: 2013 - Alcohol/Substance Use Hx Alcohol Use: Yes (seldom) Home Medications - Allergies Allergies/Adverse Reactions: Allergies Allergy/AdvReac Type Severity Reaction Status Date / Time clindamycin Allergy Mild Verified 09/05/16 16:21 Penicillins Allergy Mild Verified 09/05/16 16:21 vancomycin Allergy Mild Verified 09/05/16 16:21 PLASTIC TAPE Allergy Rash Uncoded 09/05/16 16:21 - Home Medications Home Medications: Ambulatory Orders Ferrous Sulfate [Feosol] 325 mg PO BID 04/25/13 Furosemide [Lasix -] 40 mg PO DAILY 07/28/13 Calcium Citrate/Vitamin D3 [Calcitrate + Vit D Caplet] 1 each PO BID 09/05/16 Difluprednate [Durezol] 1 drop OP BID 09/05/16 Losartan Potassium [Cozaar -] 25 mg PO DAILY 09/05/16 Nepafenac [Ilevro] 1 drop OP DAILY 09/05/16 Non-Formulary 1 tab PO DAILY 09/05/16 Warfarin Sodium [Coumadin] 3 mg PO ASDIR 09/05/16 PE Head - NC/AT lung - CTA Heart - RRR abd - soft,nt,nd ext - bilateral lower ext venous stasis with swelling A/P Bilateral lower ext Venous stasis 1. LUZ wraps for compression 2. Leg elevation 3. Will come to wound care clinic as outpt. Gave phone number to daughter Jacoby Lopez
[2016-09-08] MEDS: ZOLPIDEM TARTRATE 5 MG TABLET PO SCH (21:45)
[2016-09-09] MEDS: FUROSEMIDE 40 MG/4 ML INJECTABLE VIAL IVPUSH SCH ×2 (06:43→13:51)
[2016-09-09 07:43] LABS: BASOPHIL 0.4 % (0-2.0); EOSINOPHIL 2.9 % (0-4.5); MCH 29.2 pg (25.7-33.7); MCHC 32.5 g/dl (32.0-36.0); MEAN CELL VOLUME 89.9 fl (80-96); NEUTROPHILS 78.4 % (42.8-82.8); PLATELET COUNT 187 K/MM3 (134-434); RDW 16.1 % (11.6-15.6); WHITE BLOOD COUNT 4.8 K/mm3 (4.0-10.0)
[2016-09-09 07:55] LABS: INR 2.46 (0.82-1.09); PROTHROMBIN TIME (PATIENT) 27.6 SEC (9.98-11.88)
--- NOTE | 2016-09-09 08:04 | PN ---
Progress Note (short form) - Note Progress Note: Chief Complaint: Events noted, notes reviewed. Denies any chest pain, dyspnea persists, edema persists with orthopnea but denies any PND History of Present Illness: Seen and examined on telemetry. Events noted, notes reviewed. Denies any chest pain, dyspnea persists, edema persists with orthopnea but denies any PND Echocardiography dated 03/22/2015 revealed preserved LV function with mild concentric LVH, severe bi-atrial dilatation, mechanical MV and AV prosthesis, TV bio-prosthetic, moderate to severe MR, moderate TR with severe pulmonary HTN RVSP of 67 mHg - Current Medication List Current Medications Acetaminophen (Tylenol -) 650 mg PO Q6H PRN PRN Reason: FEVER OR PAIN Albuterol Sulfate (Ventolin 0.083% Nebulizer Soln -) 1 amp NEB Q4H PRN PRN Reason: SHORT OF BREATH/WHEEZING Last Admin: 09/08/16 16:10 Dose: 1 amp Artificial Tears (Artificial Tears) 1 drop OD DAILY PRN PRN Reason: DRY EYES Ferrous Sulfate (Feosol -) 325 mg PO BID [facility] Last Admin: 09/08/16 21:45 Dose: 325 mg Furosemide (Lasix Injection -) 40 mg IVPUSH BID@0600,1400 [facility] Last Admin: 09/09/16 06:43 Dose: 40 mg Losartan Potassium (Cozaar -) 25 mg PO DAILY [facility] Last Admin: 09/07/16 10:10 Dose: 25 mg Nepafenac 0.3% Opth (Drops) 1 each OD DAILY [facility] Durezol 0.05% Opth Drops - Patient Own Med 1 each OD BID [facility] Last Admin: 09/08/16 21:45 Dose: 1 each Warfarin Sodium (Coumadin -) 3 mg PO DAILY@1800 [facility] Zolpidem Tartrate (Ambien -) 5 mg PO HS [facility] Last Admin: 09/08/16 21:45 Dose: 5 mg - Objective Vital Signs: Last Vital Signs Temp Pulse Resp BP Pulse Ox 97.8 F 46 L 18 126/67 98 09/09/16 06:30 09/09/16 06:30 09/09/16 06:30 09/09/16 06:30 09/08/16 21:00 Constitutional: No Distress, Calm Neck: Supple Negative JVD No bruit Respiratory: Diminished Breath Sounds at the Bases with Basal Rales Cardiovascular: Mechanical Clicks Irregularly irregular Grade 2-3/6 Systolic and Grade 2-3/6 Diastolic Murmur Gastrointestinal: Soft Benign Normal Bowel Sounds Ext: Bilateral Edema with Bilateral Venous Stasis Changes Labs: CBC, BMP 09/09/16 06:30 09/09/16 06:30 INR, PTT INR 2.46 (0.82-1.09) H 09/09/16 06:30 Assessment/Plan ASSESSMENT: 1. 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 Post MVR and AVR (mechanical prosthesis) with history of rheumatic heart disease, moderate to severe MR and probable AI although no indication on TTE as noted above 3. Post TVR (Bio-prosthesis) 4. Permanent atrial fibrillation with slow ventricular response 5. History of hepatic cirrhosis 6. Acute on CKD 7. Anemia PLAN: 1. Continue IV Lasix and add Aldactone with close monitoring of renal function 2. Continue Coumadin as per INR maintain 2.5-3.5 3. Continue Cozaar 4. Ideally should be on B-Blockers but defer related to bradycardia 5. Repeat echocardiography to assess AV prosthesis Rose Godoy M.D.
[2016-09-09 08:11] LABS: ALBUMIN 3.4 g/dl (3.4-5.0); CALCIUM 8.2 mg/dL (8.5-10.1)
[2016-09-09 08:15] LABS: CREATININE 1.4 mg/dL (0.55-1.02)
[2016-09-09] MEDS ORDERED: PT OWN MED DRAWER 7, Y5N ONE ×2 (10:02→23:09)
[2016-09-09] MEDS: FERROUS SO4 325 MG TABLET (FP) PO SCH ×2 (10:16→23:20)
[2016-09-09] MEDS: OPTH OD SCH ×2 (10:16→23:21)
[2016-09-09] MEDS: DUREZOL 0.05% OD SCH ×2 (10:16→23:21)
[2016-09-09] MEDS: ALBUTEROL SO4 0.083% IH SOL 2.5 MG/3 ML VIAL.NEB. NEB PRN ×2 (11:07→22:45)
--- NOTE | 2016-09-09 11:44 | PN ---
Progress Note, Physician History of Present Illness: pulmonary alert, dyspneic at rest. - Current Medication List Current Medications: Active Medications Acetaminophen (Tylenol -) 650 mg PO Q6H PRN PRN Reason: FEVER OR PAIN Albuterol Sulfate (Ventolin 0.083% Nebulizer Soln -) 1 amp NEB Q4H PRN PRN Reason: SHORT OF BREATH/WHEEZING Last Admin: 09/09/16 11:07 Dose: 1 amp Artificial Tears (Artificial Tears) 1 drop OD DAILY PRN PRN Reason: DRY EYES Ferrous Sulfate (Feosol -) 325 mg PO BID [facility] Last Admin: 09/09/16 10:16 Dose: 325 mg Furosemide (Lasix Injection -) 40 mg IVPUSH BID@0600,1400 [facility] Last Admin: 09/09/16 06:43 Dose: 40 mg Losartan Potassium (Cozaar -) 25 mg PO DAILY [facility] Last Admin: 09/07/16 10:10 Dose: 25 mg Nepafenac 0.3% Opth (Drops) 1 each OD DAILY [facility] Durezol 0.05% Opth Drops - Patient Own Med 1 each OD BID [facility] Last Admin: 09/09/16 10:16 Dose: 1 each Spironolactone (Aldactone -) 25 mg PO DAILY [facility] Warfarin Sodium (Coumadin -) 3 mg PO DAILY@1800 [facility] Zolpidem Tartrate (Ambien -) 5 mg PO HS [facility] Last Admin: 09/08/16 21:45 Dose: 5 mg - Objective Vital Signs: Vital Signs Temperature 97.6 F 09/09/16 10:19 Pulse Rate 58 L 09/09/16 11:06 Respiratory Rate 20 09/09/16 10:19 Blood Pressure 138/70 09/09/16 10:19 O2 Sat by Pulse Oximetry (%) 97 09/09/16 11:06 Constitutional: Yes: Calm, Mild Distress, Thin Eyes: Yes: WNL HENT: Yes: WNL Neck: Yes: WNL Cardiovascular: Yes: Pulse Irregular, S1, S2 Respiratory: Yes: Rales (bilateral rales l>r) Gastrointestinal: Yes: Normal Bowel Sounds, Soft Extremities: Yes: WNL Edema: Yes Labs: CBC, BMP 09/09/16 06:30 09/09/16 06:30 INR, PTT INR 2.46 (0.82-1.09) H 09/09/16 06:30 Problem List - Problems (1) RADHA (acute kidney injury) Code(s): N17.9 - ACUTE KIDNEY FAILURE, UNSPECIFIED (2) Anemia Code(s): D64.9 - ANEMIA, UNSPECIFIED Qualifiers: Anemia type: iron deficiency (3) CHF (congestive heart failure) Code(s): I50.9 - HEART FAILURE, UNSPECIFIED Qualifiers: Congestive heart failure type: diastolic Congestive heart failure chronicity: acute on chronic Qualified Code(s): I50.33 - Acute on chronic diastolic (congestive) heart failure (4) Cholelithiasis Code(s): K80.20 - CALCULUS OF GALLBLADDER W/O CHOLECYSTITIS W/O OBSTRUCTION Qualifiers: Cholelithiasis location: gallbladder Cholecystitis presence: without cholecystitis Biliary obstruction: without biliary obstruction Qualified Code(s): K80.20 - Calculus of gallbladder without cholecystitis without obstruction (5) Elevated serum creatinine Code(s): R79.89 - OTHER SPECIFIED ABNORMAL FINDINGS OF BLOOD CHEMISTRY (6) Hepatic cirrhosis Code(s): K74.60 - UNSPECIFIED CIRRHOSIS OF LIVER Qualifiers: Hepatic cirrhosis type: unspecified hepatic cirrhosis Ascites presence : without ascites Qualified Code(s): K74.60 - Unspecified cirrhosis of liver (7) Rheumatic heart disease Code(s): I09.9 - RHEUMATIC HEART DISEASE, UNSPECIFIED (8) S/P AVR (aortic valve replacement) Code(s): Z95.2 - PRESENCE OF PROSTHETIC HEART VALVE (9) S/P MVR (mitral valve replacement) Code(s): Z95.2 - PRESENCE OF PROSTHETIC HEART VALVE (11) Shortness of breath Code(s): R06.02 - SHORTNESS OF BREATH Assessment/Plan IMP CHF VALVULAR HD S/P MVR,AVR,TVR HTN AFIB ACUTE ON CHRONIC KIDNEY INJURY H/O CIRRHOSIS H/O RHEUMATIC HEART DISEASE PLAN CONTINUE LASIX,ALDACTONE SUPPLEMENTAL O2 DAILY WTS ANTICOAGULATION F/U CHEST X-RAYS MONITOR LYTES,RENAL FUNCTION ECHO DR BOUCHER Problem List - Problems (1) RADHA (acute kidney injury) Code(s): N17.9 - ACUTE KIDNEY FAILURE, UNSPECIFIED (2) Anemia Code(s): D64.9 - ANEMIA, UNSPECIFIED Qualifiers: Anemia type: iron deficiency (3) CHF (congestive heart failure) Code(s): I50.9 - HEART FAILURE, UNSPECIFIED Qualifiers: Congestive heart failure type: diastolic Congestive heart failure chronicity: acute on chronic Qualified Code(s): I50.33 - Acute on chronic diastolic (congestive) heart failure (4) Cholelithiasis Code(s): K80.20 - CALCULUS OF GALLBLADDER W/O CHOLECYSTITIS W/O OBSTRUCTION Qualifiers: Cholelithiasis location: gallbladder Cholecystitis presence: without cholecystitis Biliary obstruction: without biliary obstruction Qualified Code(s): K80.20 - Calculus of gallbladder without cholecystitis without obstruction (5) Elevated serum creatinine Code(s): R79.89 - OTHER SPECIFIED ABNORMAL FINDINGS OF BLOOD CHEMISTRY (6) Hepatic cirrhosis Code(s): K74.60 - UNSPECIFIED CIRRHOSIS OF LIVER Qualifiers: Hepatic cirrhosis type: unspecified hepatic cirrhosis Ascites presence : without ascites Qualified Code(s): K74.60 - Unspecified cirrhosis of liver (7) Rheumatic heart disease Code(s): I09.9 - RHEUMATIC HEART DISEASE, UNSPECIFIED (8) S/P AVR (aortic valve replacement) Code(s): Z95.2 - PRESENCE OF PROSTHETIC HEART VALVE (9) S/P MVR (mitral valve replacement) Code(s): Z95.2 - PRESENCE OF PROSTHETIC HEART VALVE (11) Shortness of breath Code(s): R06.02 - SHORTNESS OF BREATH
[2016-09-09] MEDS: SPIRONOLACTONE 25 MG TABLET (FP) PO SCH (13:51)
--- NOTE | 2016-09-09 15:25 | PN ---
Progress Note, Physician Chief Complaint: AWAKE ALERT, STILL C/O SOB AT REST SPECIFICALLY WHEN HER LEGS ARE ELEVATED TO RELIEVE LOWER EXTREMITY EDEMA SHE BECOMES MORE SOB. DENIES CHEST PAIN - Current Medication List Current Medications: Active Medications Acetaminophen (Tylenol -) 650 mg PO Q6H PRN PRN Reason: FEVER OR PAIN Albuterol Sulfate (Ventolin 0.083% Nebulizer Soln -) 1 amp NEB Q4H PRN PRN Reason: SHORT OF BREATH/WHEEZING Last Admin: 09/09/16 11:07 Dose: 1 amp Artificial Tears (Artificial Tears) 1 drop OD DAILY PRN PRN Reason: DRY EYES Ferrous Sulfate (Feosol -) 325 mg PO BID [facility] Last Admin: 09/09/16 10:16 Dose: 325 mg Furosemide (Lasix Injection -) 40 mg IVPUSH BID@0600,1400 [facility] Last Admin: 09/09/16 13:51 Dose: 40 mg Losartan Potassium (Cozaar -) 25 mg PO DAILY [facility] Last Admin: 09/07/16 10:10 Dose: 25 mg Metolazone (Zaroxolyn -) 2.5 mg PO ONCE ONE Stop: 09/09/16 14:16 Nepafenac 0.3% Opth (Drops) 1 each OD DAILY [facility] Durezol 0.05% Opth Drops - Patient Own Med 1 each OD BID [facility] Last Admin: 09/09/16 10:16 Dose: 1 each Spironolactone (Aldactone -) 25 mg PO DAILY [facility] Last Admin: 09/09/16 13:51 Dose: 25 mg Warfarin Sodium (Coumadin -) 3 mg PO DAILY@1800 [facility] Zolpidem Tartrate (Ambien -) 5 mg PO [facility] Last Admin: 09/08/16 21:45 Dose: 5 mg - Objective Vital Signs: Vital Signs Temperature 97.6 F 09/09/16 14:27 Pulse Rate 52 L 09/09/16 14:27 Respiratory Rate 18 09/09/16 14:27 Blood Pressure 128/78 09/09/16 14:27 O2 Sat by Pulse Oximetry (%) 97 09/09/16 11:06 Constitutional: Yes: Mild Distress Eyes: Yes: WNL HENT: Yes: WNL Neck: Yes: WNL Cardiovascular: Yes: Pulse Irregular, Murmur Respiratory: Yes: On Nasal O2, Poor Air Entry, SOB Gastrointestinal: Yes: WNL Genitourinary: Yes: WNL Musculoskeletal: Yes: Muscle Weakness Edema: Yes Edema: LLE: 2+, RLE: 2+ Peripheral Pulses WNL: Yes Integumentary: Yes: Erythema, Rash, Venous Stasis Changes Wound/Incision: Yes: Dressing Dry and Intact Neurological: Yes: Other ...Motor Strength: LLE, RLE Psychiatric: Yes: WNL Labs: CBC, BMP 09/09/16 06:30 09/09/16 06:30 INR, PTT INR 2.46 (0.82-1.09) H 09/09/16 06:30 Problem List - Problems (1) Anemia Code(s): D64.9 - ANEMIA, UNSPECIFIED Qualifiers: Anemia type: iron deficiency (2) CHF (congestive heart failure) Code(s): I50.9 - HEART FAILURE, UNSPECIFIED Qualifiers: Congestive heart failure type: diastolic Congestive heart failure chronicity: acute on chronic Qualified Code(s): I50.33 - Acute on chronic diastolic (congestive) heart failure (3) Elevated serum creatinine Code(s): R79.89 - OTHER SPECIFIED ABNORMAL FINDINGS OF BLOOD CHEMISTRY (4) Hepatic cirrhosis Code(s): K74.60 - UNSPECIFIED CIRRHOSIS OF LIVER Qualifiers: Hepatic cirrhosis type: unspecified hepatic cirrhosis Ascites presence : without ascites Qualified Code(s): K74.60 - Unspecified cirrhosis of liver (5) Rheumatic heart disease Code(s): I09.9 - RHEUMATIC HEART DISEASE, UNSPECIFIED (6) S/P AVR (aortic valve replacement) Code(s): Z95.2 - PRESENCE OF PROSTHETIC HEART VALVE (7) S/P MVR (mitral valve replacement) Code(s): Z95.2 - PRESENCE OF PROSTHETIC HEART VALVE (9) Shortness of breath Code(s): R06.02 - SHORTNESS OF BREATH Assessment/Plan DYSPNEA NOT IMPROVING, URINE OUTPUT IS NOT OPTIMAL CONTINUE LASIX BID HOWEVER WILL ADD THIAZIDE 2.5MG PO X 1 MONITOR WEIGHTS, INCREASED SINCE ADMISSION. CARDIOLOGY AND PULMONARY F/U APPRECIATED CHECK LABS INR 2.45 RESTART COUMADIN TODAY
--- NOTE | 2016-09-09 15:27 | PN ---
Progress Note, Physician History of Present Illness: Pt seen and examined at bedside. She is awake and alert. She complains of shortness of breath. - Current Medication List Current Medications: Active Medications Acetaminophen (Tylenol -) 650 mg PO Q6H PRN PRN Reason: FEVER OR PAIN Albuterol Sulfate (Ventolin 0.083% Nebulizer Soln -) 1 amp NEB Q4H PRN PRN Reason: SHORT OF BREATH/WHEEZING Last Admin: 09/09/16 11:07 Dose: 1 amp Artificial Tears (Artificial Tears) 1 drop OD DAILY PRN PRN Reason: DRY EYES Ferrous Sulfate (Feosol -) 325 mg PO BID [facility] Last Admin: 09/09/16 10:16 Dose: 325 mg Furosemide (Lasix Injection -) 40 mg IVPUSH BID@0600,1400 [facility] Last Admin: 09/09/16 13:51 Dose: 40 mg Losartan Potassium (Cozaar -) 25 mg PO DAILY [facility] Last Admin: 09/07/16 10:10 Dose: 25 mg Metolazone (Zaroxolyn -) 2.5 mg PO ONCE ONE Stop: 09/09/16 14:16 Nepafenac 0.3% Opth (Drops) 1 each OD DAILY [facility] Durezol 0.05% Opth Drops - Patient Own Med 1 each OD BID [facility] Last Admin: 09/09/16 10:16 Dose: 1 each Spironolactone (Aldactone -) 25 mg PO DAILY [facility] Last Admin: 09/09/16 13:51 Dose: 25 mg Warfarin Sodium (Coumadin -) 3 mg PO DAILY@1800 [facility] Zolpidem Tartrate (Ambien -) 5 mg PO [facility] Last Admin: 09/08/16 21:45 Dose: 5 mg - Objective Vital Signs: Vital Signs Temperature 97.6 F 09/09/16 14:27 Pulse Rate 52 L 09/09/16 14:27 Respiratory Rate 18 09/09/16 14:27 Blood Pressure 128/78 09/09/16 14:27 O2 Sat by Pulse Oximetry (%) 97 09/09/16 11:06 Constitutional: Yes: Calm Eyes: Yes: Conjunctiva Clear Cardiovascular: Yes: S1, S2 Respiratory: Yes: On Nasal O2, Rhonchi Gastrointestinal: Yes: Soft Genitourinary: Yes: WNL Musculoskeletal: Yes: Muscle Weakness Edema: Yes Edema: LLE: 2+, RLE: 2+ Neurological: Yes: Oriented Psychiatric: Yes: Oriented Labs: CBC, BMP 09/09/16 06:30 09/09/16 06:30 INR, PTT INR 2.46 (0.82-1.09) H 09/09/16 06:30 Problem List - Problems (1) Anemia Code(s): D64.9 - ANEMIA, UNSPECIFIED (2) CHF (congestive heart failure) Code(s): I50.9 - HEART FAILURE, UNSPECIFIED Qualifiers: Qualified Code(s): I50.33 - Acute on chronic diastolic (congestive) heart failure (3) Cholelithiasis Code(s): K80.20 - CALCULUS OF GALLBLADDER W/O CHOLECYSTITIS W/O OBSTRUCTION Qualifiers: Qualified Code(s): K80.20 - Calculus of gallbladder without cholecystitis without obstruction (4) Hepatic cirrhosis Code(s): K74.60 - UNSPECIFIED CIRRHOSIS OF LIVER Qualifiers: Qualified Code(s): K74.60 - Unspecified cirrhosis of liver (5) S/P AVR (aortic valve replacement) Code(s): Z95.2 - PRESENCE OF PROSTHETIC HEART VALVE (6) S/P MVR (mitral valve replacement) Code(s): Z95.2 - PRESENCE OF PROSTHETIC HEART VALVE (8) Shortness of breath Code(s): R06.02 - SHORTNESS OF BREATH (9) RADHA (acute kidney injury) Code(s): N17.9 - ACUTE KIDNEY FAILURE, UNSPECIFIED Assessment/Plan Current Medications Generic Name Dose Route Start Last Admin Trade Name Freq PRN Reason Stop Dose Admin Acetaminophen 650 mg 09/05/16 20:01 Tylenol - PO Q6H PRN FEVER OR PAIN Albuterol Sulfate 1 amp 09/08/16 10:48 09/09/16 11:07 Ventolin 0.083% Nebulizer Soln - NEB 1 amp Q4H PRN Administration SHORT OF BREATH/WHEEZING Artificial Tears 1 drop 09/05/16 20:04 Artificial Tears OD DAILY PRN DRY EYES Ferrous Sulfate 325 mg 09/05/16 22:00 09/09/16 10:16 Feosol - PO 325 mg BID [facility] Administration Furosemide 40 mg 09/06/16 14:00 09/09/16 13:51 Lasix Injection - IVPUSH 40 mg BID@0600,1400 [facility] Administration Losartan Potassium 25 mg 09/06/16 10:00 09/07/16 10:10 Cozaar - PO 25 mg DAILY [facility] Administration Metolazone 2.5 mg 09/09/16 14:15 Zaroxolyn - PO 09/09/16 14:16 ONCE ONE Nepafenac 0.3% Opth 1 each 09/06/16 10:00 Drops OD DAILY [facility] Durezol 0.05% Opth 1 each 09/07/16 22:00 09/09/16 10:16 Drops - Patient Own OD 1 each Med BID [facility] Administration Spironolactone 25 mg 09/09/16 10:15 09/09/16 13:51 Aldactone - PO 25 mg DAILY [facility] Administration Warfarin Sodium 3 mg 09/06/16 18:00 Coumadin - PO DAILY@1800 [facility] Zolpidem Tartrate 5 mg 09/07/16 22:00 09/08/16 21:45 Ambien - PO 5 mg HS [facility] Administration Impression 1. RADHA 2. aortic valve replacement 3. mitral valve replacement 4. tricuspid valve replacement 5. CHF 6. a-fib 7. anemia 8. hx GI bleed 9. HTN Plan - cont with lasix - monitor output with aldactone - dose of cozaar held as potassium was 5 yesterday, should be restarted tomorrow if potassium is stable - pt has baseline creatinine of about 0.7 and is at 1.4 now - may have to also add a thiazide like diuretics - will discuss with cardio tomorrow after reviewing labs - atrophic kidney on ultrasound - cardio input appreciated - likely cardiorenal Dr Bo
[2016-09-09] MEDS ORDERED: METOLAZONE 2.5 MG TABLET (FP) PO ONE (17:30)
[2016-09-09] MEDS: WARFARIN NA 3 MG TABLET PO SCH (17:41)
[2016-09-09] MEDS: ZOLPIDEM TARTRATE 5 MG TABLET PO SCH (23:21)
[2016-09-10] MEDS: FUROSEMIDE 40 MG/4 ML INJECTABLE VIAL IVPUSH SCH ×2 (06:08→15:03)
[2016-09-10 06:43] LABS: BASOPHIL 0.8 % (0-2.0); MCH 28.9 pg (25.7-33.7); MCHC 32.6 g/dl (32.0-36.0); MEAN CELL VOLUME 88.6 fl (80-96); MEAN PLT VOLUME 9.1 fl (7.5-11.1); PLATELET COUNT 194 K/MM3 (134-434); WHITE BLOOD COUNT 4.3 K/mm3 (4.0-10.0)
[2016-09-10 06:58] LABS: INR 1.88 (0.82-1.09)
[2016-09-10 07:14] LABS: CALCIUM 8.1 mg/dL (8.5-10.1); CREATININE 1.3 mg/dL (0.55-1.02)
[2016-09-10] MEDS: OPTH OD SCH ×2 (10:38→21:15)
[2016-09-10] MEDS: DUREZOL 0.05% OD SCH ×2 (10:38→21:15)
[2016-09-10] MEDS: FERROUS SO4 325 MG TABLET (FP) PO SCH ×2 (10:39→21:15)
[2016-09-10] MEDS: SPIRONOLACTONE 25 MG TABLET (FP) PO SCH (10:39)
--- NOTE | 2016-09-10 11:28 | PN ---
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 Patient is also known to have cardiac cirrhosis. Patient continues to have dyspnea although she states she is feeling better than the last few days. Massive pedal edema extending to the thighs. No history of chest pain or discomfort, no palpitations were reported. Patient has severe pulmonary hypertension. Active Medications Generic Name Dose Route Start Last Admin Trade Name Freq PRN Reason Stop Dose Admin Acetaminophen 650 mg 09/05/16 20:01 Tylenol - PO Q6H PRN FEVER OR PAIN Albuterol Sulfate 1 amp 09/08/16 10:48 09/09/16 22:45 Ventolin 0.083% Nebulizer Soln - NEB 1 amp Q4H PRN Administration SHORT OF BREATH/WHEEZING Artificial Tears 1 drop 09/05/16 20:04 Artificial Tears OD DAILY PRN DRY EYES Ferrous Sulfate 325 mg 09/05/16 22:00 09/10/16 10:39 Feosol - PO 325 mg BID ABELARDO Administration Furosemide 40 mg 09/06/16 14:00 09/10/16 06:08 Lasix Injection - IVPUSH 40 mg BID@0600,1400 ABELARDO Administration Losartan Potassium 25 mg 09/06/16 10:00 09/07/16 10:10 Cozaar - PO 25 mg DAILY ABELARDO Administration Nepafenac 0.3% Opth 1 each 09/06/16 10:00 Drops OD DAILY ABELARDO Durezol 0.05% Opth 1 each 09/07/16 22:00 09/10/16 10:38 Drops - Patient Own OD 1 each Med BID ABELARDO Administration Spironolactone 25 mg 09/09/16 10:15 09/10/16 10:39 Aldactone - PO 25 mg DAILY ABELARDO Administration Warfarin Sodium 3 mg 09/06/16 18:00 09/09/16 17:41 Coumadin - PO 3 mg DAILY@1800 ABELARDO Administration Zolpidem Tartrate 5 mg 09/07/16 22:00 09/09/16 23:21 Ambien - PO 5 mg HS ABELARDO Administration O: 85 year old female was in mild respiratory distress, no pallor, cyanosis, clubbing, or jaundice. Last Vital Signs Temp Pulse Resp BP Pulse Ox 97.5 F L 93 H Irregular 19 132/79 92 L 09/10/16 10:37 09/10/16 10:37 09/10/16 10:37 09/10/16 10:37 09/09/16 22:00 Neck: Supple, no JVD, negative HJR, carotids were equal and upstrokes were normal, no thyromegaly appreciated. Heart: PMI was in the 5th intercostal space, no heaves or thrills, S1 and S2 were normal. No murmurs or gallops were appreciated. Lungs: Clear on auscultation bilaterally. Abdomen: Soft, nontender, no hepatosplenomegaly appreciated, and no palpable masses were felt. Extremities: No calf tenderness or dependent edema. Pulses are normal. CBC, BMP 09/10/16 05:30 09/10/16 05:30 Laboratory Results - last 24 hr 09/10/16 09/10/16 09/10/16 05:30 05:30 05:30 WBC 4.3 RBC 3.13 L Hgb 9.0 L Hct 27.7 L MCV 88.6 MCHC 32.6 RDW 16.0 H Plt Count 194 MPV 9.1 Neutrophils % 77.0 Lymphocytes % 5.5 L D Monocytes % 13.7 H Eosinophils % 3.0 Basophils % 0.8 INR 1.88 H Sodium 134 L Potassium 4.6 Chloride 91 L Carbon Dioxide 31 Anion Gap 12 BUN 76 H Creatinine 1.3 H Random Glucose 102 Calcium 8.1 L Impression: (1) Congestive heart failure (right heart failure) NYHA Class III Code(s): I50.9 - HEART FAILURE, UNSPECIFIED (2) Tricuspid regurgitation Code(s): I07.1 - RHEUMATIC TRICUSPID INSUFFICIENCY (3) Severe Pulmonary hypertension Code(s): I27.2 - OTHER SECONDARY PULMONARY HYPERTENSION (4) Prerenal azotemia with underlying renal disease Code(s): R79.89 - OTHER SPECIFIED ABNORMAL FINDINGS OF BLOOD CHEMISTRY (5) Rheumatic heart disease Code(s): I09.9 - RHEUMATIC HEART DISEASE, UNSPECIFIED (6) S/P AVR (aortic valve replacement) Code(s): Z95.2 - PRESENCE OF PROSTHETIC HEART VALVE (7) S/P MVR (mitral valve replacement) Code(s): Z95.2 - PRESENCE OF PROSTHETIC HEART VALVE (8) Permanent atrial fibrillation Code(s): I48.2 - CHRONIC ATRIAL FIBRILLATION (9) Venous stasis dermatitis of both lower extremities Code(s): I83.11 - VARICOSE VEINS OF RIGHT LOWER EXTREMITY WITH INFLAMMATION I83.12 - VARICOSE VEINS OF LEFT LOWER EXTREMITY WITH INFLAMMATION (10) Anemia Code(s): D64.9 - ANEMIA Recommendations: 1. Concur with current line of cardiac treatment. 2. If renal azotemia and heart failure persist consider renal dose dopamine. 3. Patient may require periodic addition of zaroxyln. 4. Daily weight. Prognosis: Critical Attestation: Documentation prepared by Kenroy Means, acting as medical claims representative for Pillo Grossman MD.
--- NOTE | 2016-09-10 11:40 | PN ---
Progress Note, Physician History of Present Illness: pulmonary alert,less dyspneic today - Current Medication List Current Medications: Active Medications Acetaminophen (Tylenol -) 650 mg PO Q6H PRN PRN Reason: FEVER OR PAIN Albuterol Sulfate (Ventolin 0.083% Nebulizer Soln -) 1 amp NEB Q4H PRN PRN Reason: SHORT OF BREATH/WHEEZING Last Admin: 09/09/16 22:45 Dose: 1 amp Artificial Tears (Artificial Tears) 1 drop OD DAILY PRN PRN Reason: DRY EYES Ferrous Sulfate (Feosol -) 325 mg PO BID [facility] Last Admin: 09/10/16 10:39 Dose: 325 mg Furosemide (Lasix Injection -) 40 mg IVPUSH BID@0600,1400 [facility] Last Admin: 09/10/16 06:08 Dose: 40 mg Losartan Potassium (Cozaar -) 25 mg PO DAILY [facility] Last Admin: 09/07/16 10:10 Dose: 25 mg Nepafenac 0.3% Opth (Drops) 1 each OD DAILY [facility] Durezol 0.05% Opth Drops - Patient Own Med 1 each OD BID [facility] Last Admin: 09/10/16 10:38 Dose: 1 each Spironolactone (Aldactone -) 25 mg PO DAILY [facility] Last Admin: 09/10/16 10:39 Dose: 25 mg Warfarin Sodium (Coumadin -) 3 mg PO DAILY@1800 [facility] Last Admin: 09/09/16 17:41 Dose: 3 mg Zolpidem Tartrate (Ambien -) 5 mg PO HS [facility] Last Admin: 09/09/16 23:21 Dose: 5 mg - Objective Vital Signs: Vital Signs Temperature 97.5 F L 09/10/16 10:37 Pulse Rate 93 H 09/10/16 10:37 Respiratory Rate 19 09/10/16 10:37 Blood Pressure 132/79 09/10/16 10:37 O2 Sat by Pulse Oximetry (%) 92 L 09/09/16 22:00 Constitutional: Yes: Calm, Thin Eyes: Yes: WNL HENT: Yes: WNL Neck: Yes: WNL Cardiovascular: Yes: Pulse Irregular, S1, S2 Respiratory: Yes: Rales (bilateral rales 1/2 up) Gastrointestinal: Yes: Normal Bowel Sounds, Soft Extremities: Yes: WNL, Other (chronic stasis changes bilaterally) Labs: CBC, BMP 09/10/16 05:30 09/10/16 05:30 INR, PTT INR 1.88 (0.82-1.09) H 09/10/16 05:30 Problem List - Problems (1) RADHA (acute kidney injury) Code(s): N17.9 - ACUTE KIDNEY FAILURE, UNSPECIFIED (2) Anemia Code(s): D64.9 - ANEMIA, UNSPECIFIED Qualifiers: Anemia type: iron deficiency (3) CHF (congestive heart failure) Code(s): I50.9 - HEART FAILURE, UNSPECIFIED Qualifiers: Congestive heart failure type: diastolic Congestive heart failure chronicity: acute on chronic Qualified Code(s): I50.33 - Acute on chronic diastolic (congestive) heart failure (4) Cholelithiasis Code(s): K80.20 - CALCULUS OF GALLBLADDER W/O CHOLECYSTITIS W/O OBSTRUCTION Qualifiers: Cholelithiasis location: gallbladder Cholecystitis presence: without cholecystitis Biliary obstruction: without biliary obstruction Qualified Code(s): K80.20 - Calculus of gallbladder without cholecystitis without obstruction (5) Elevated serum creatinine Code(s): R79.89 - OTHER SPECIFIED ABNORMAL FINDINGS OF BLOOD CHEMISTRY (6) Hepatic cirrhosis Code(s): K74.60 - UNSPECIFIED CIRRHOSIS OF LIVER Qualifiers: Hepatic cirrhosis type: unspecified hepatic cirrhosis Ascites presence : without ascites Qualified Code(s): K74.60 - Unspecified cirrhosis of liver (7) Rheumatic heart disease Code(s): I09.9 - RHEUMATIC HEART DISEASE, UNSPECIFIED (8) S/P AVR (aortic valve replacement) Code(s): Z95.2 - PRESENCE OF PROSTHETIC HEART VALVE (9) S/P MVR (mitral valve replacement) Code(s): Z95.2 - PRESENCE OF PROSTHETIC HEART VALVE (11) Shortness of breath Code(s): R06.02 - SHORTNESS OF BREATH Assessment/Plan IMP CHF VALVULAR HD S/P MVR,AVR,TVR HTN AFIB ACUTE ON CHRONIC KIDNEY INJURY H/O CIRRHOSIS H/O RHEUMATIC HEART DISEASE PLAN CONTINUE LASIX,ALDACTONE SUPPLEMENTAL O2 DAILY WTS ANTICOAGULATION F/U CHEST X-RAY MONITOR LYTES,RENAL FUNCTION DR BOUCHER Problem List - Problems (1) RADHA (acute kidney injury) Code(s): N17.9 - ACUTE KIDNEY FAILURE, UNSPECIFIED (2) Anemia Code(s): D64.9 - ANEMIA, UNSPECIFIED Qualifiers: Anemia type: iron deficiency (3) CHF (congestive heart failure) Code(s): I50.9 - HEART FAILURE, UNSPECIFIED Qualifiers: Congestive heart failure type: diastolic Congestive heart failure chronicity: acute on chronic Qualified Code(s): I50.33 - Acute on chronic diastolic (congestive) heart failure (4) Cholelithiasis Code(s): K80.20 - CALCULUS OF GALLBLADDER W/O CHOLECYSTITIS W/O OBSTRUCTION Qualifiers: Cholelithiasis location: gallbladder Cholecystitis presence: without cholecystitis Biliary obstruction: without biliary obstruction Qualified Code(s): K80.20 - Calculus of gallbladder without cholecystitis without obstruction (5) Elevated serum creatinine Code(s): R79.89 - OTHER SPECIFIED ABNORMAL FINDINGS OF BLOOD CHEMISTRY (6) Hepatic cirrhosis Code(s): K74.60 - UNSPECIFIED CIRRHOSIS OF LIVER Qualifiers: Hepatic cirrhosis type: unspecified hepatic cirrhosis Ascites presence : without ascites Qualified Code(s): K74.60 - Unspecified cirrhosis of liver (7) Rheumatic heart disease Code(s): I09.9 - RHEUMATIC HEART DISEASE, UNSPECIFIED (8) S/P AVR (aortic valve replacement) Code(s): Z95.2 - PRESENCE OF PROSTHETIC HEART VALVE (9) S/P MVR (mitral valve replacement) Code(s): Z95.2 - PRESENCE OF PROSTHETIC HEART VALVE (11) Shortness of breath Code(s): R06.02 - SHORTNESS OF BREATH
--- NOTE | 2016-09-10 13:46 | PN ---
Progress Note, Physician Chief Complaint: HAD D/W PATIENT & DAUGHTER C/O MILD EPISTAXIS C/O GROIN PAIN -> HAS FISSURE BY ANUS SOB WHEN AMBULATES IMPROVED SOB WHEN SUPINE - Current Medication List Current Medications: Active Medications Acetaminophen (Tylenol -) 650 mg PO Q6H PRN PRN Reason: FEVER OR PAIN Albuterol Sulfate (Ventolin 0.083% Nebulizer Soln -) 1 amp NEB Q4H PRN PRN Reason: SHORT OF BREATH/WHEEZING Last Admin: 09/09/16 22:45 Dose: 1 amp Artificial Tears (Artificial Tears) 1 drop OD DAILY PRN PRN Reason: DRY EYES Ferrous Sulfate (Feosol -) 325 mg PO BID [facility] Last Admin: 09/10/16 10:39 Dose: 325 mg Furosemide (Lasix Injection -) 40 mg IVPUSH BID@0600,1400 [facility] Last Admin: 09/10/16 06:08 Dose: 40 mg Losartan Potassium (Cozaar -) 25 mg PO DAILY [facility] Last Admin: 09/07/16 10:10 Dose: 25 mg Nepafenac 0.3% Opth (Drops) 1 each OD DAILY [facility] Durezol 0.05% Opth Drops - Patient Own Med 1 each OD BID [facility] Last Admin: 09/10/16 10:38 Dose: 1 each Spironolactone (Aldactone -) 25 mg PO DAILY [facility] Last Admin: 09/10/16 10:39 Dose: 25 mg Warfarin Sodium (Coumadin -) 3 mg PO DAILY@1800 [facility] Last Admin: 09/09/16 17:41 Dose: 3 mg Zolpidem Tartrate (Ambien -) 5 mg PO [facility] Last Admin: 09/09/16 23:21 Dose: 5 mg - Objective Vital Signs: Vital Signs Temperature 97.5 F L 09/10/16 10:37 Pulse Rate 60 09/10/16 11:52 Respiratory Rate 19 09/10/16 10:37 Blood Pressure 132/79 09/10/16 10:37 O2 Sat by Pulse Oximetry (%) 96 09/10/16 11:52 Constitutional: Yes: Calm Eyes: Yes: PERRL HENT: Yes: Normocephalic Cardiovascular: Yes: S1, S2 Respiratory: Yes: CTA Bilaterally Gastrointestinal: Yes: Normal Bowel Sounds, Soft Edema: Yes Wound/Incision: Yes: Other (LAC BY ANUS) Labs: CBC, BMP 09/10/16 05:30 09/10/16 05:30 INR, PTT INR 1.88 (0.82-1.09) H 09/10/16 05:30 Problem List - Problems (1) Anemia Code(s): D64.9 - ANEMIA, UNSPECIFIED Qualifiers: Anemia type: iron deficiency (2) CHF (congestive heart failure) Code(s): I50.9 - HEART FAILURE, UNSPECIFIED Qualifiers: Congestive heart failure type: diastolic Congestive heart failure chronicity: acute on chronic Qualified Code(s): I50.33 - Acute on chronic diastolic (congestive) heart failure (3) Elevated serum creatinine Code(s): R79.89 - OTHER SPECIFIED ABNORMAL FINDINGS OF BLOOD CHEMISTRY (4) Hepatic cirrhosis Code(s): K74.60 - UNSPECIFIED CIRRHOSIS OF LIVER Qualifiers: Hepatic cirrhosis type: unspecified hepatic cirrhosis Ascites presence : without ascites Qualified Code(s): K74.60 - Unspecified cirrhosis of liver (5) Rheumatic heart disease Code(s): I09.9 - RHEUMATIC HEART DISEASE, UNSPECIFIED (6) S/P AVR (aortic valve replacement) Code(s): Z95.2 - PRESENCE OF PROSTHETIC HEART VALVE (7) S/P MVR (mitral valve replacement) Code(s): Z95.2 - PRESENCE OF PROSTHETIC HEART VALVE (8) Shortness of breath Code(s): R06.02 - SHORTNESS OF BREATH Assessment/Plan (1) Anemia Code(s): D64.9 - ANEMIA, UNSPECIFIED Qualifiers: Anemia type: iron deficiency (2) CHF (congestive heart failure) Code(s): I50.9 - HEART FAILURE, UNSPECIFIED Qualifiers: Congestive heart failure type: diastolic Congestive heart failure chronicity: acute on chronic Qualified Code(s): I50.33 - Acute on chronic diastolic (congestive) heart failure (3) Elevated serum creatinine Code(s): R79.89 - OTHER SPECIFIED ABNORMAL FINDINGS OF BLOOD CHEMISTRY (4) Hepatic cirrhosis Code(s): K74.60 - UNSPECIFIED CIRRHOSIS OF LIVER Qualifiers: Hepatic cirrhosis type: unspecified hepatic cirrhosis Ascites presence : without ascites Qualified Code(s): K74.60 - Unspecified cirrhosis of liver (5) Rheumatic heart disease Code(s): I09.9 - RHEUMATIC HEART DISEASE, UNSPECIFIED (6) S/P AVR (aortic valve replacement) Code(s): Z95.2 - PRESENCE OF PROSTHETIC HEART VALVE (7) S/P MVR (mitral valve replacement) Code(s): Z95.2 - PRESENCE OF PROSTHETIC HEART VALVE (9) Shortness of breath Code(s): R06.02 - SHORTNESS OF BREATH Assessment/Plan DYSPNEA IMPROVED CONTINUE LASIX BID & ALDACTONE MONITOR WEIGHTS -> AT 70kg SINCE 09/09 CARDIOLOGY AND PULMONARY F/U APPRECIATED EPISTAXIS -> MILD. 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
--- NOTE | 2016-09-10 17:38 | PN ---
Progress Note, Physician History of Present Illness: Pt seen and examined at bedside. She feels that her breathing is starting to improve. She denies chest pain or palpitations. - Current Medication List Current Medications: Active Medications Acetaminophen (Tylenol -) 650 mg PO Q6H PRN PRN Reason: FEVER OR PAIN Albuterol Sulfate (Ventolin 0.083% Nebulizer Soln -) 1 amp NEB Q4H PRN PRN Reason: SHORT OF BREATH/WHEEZING Last Admin: 09/09/16 22:45 Dose: 1 amp Artificial Tears (Artificial Tears) 1 drop OD DAILY PRN PRN Reason: DRY EYES Bacitracin (Bacitracin -) 1 applic TP BID [facility] Ferrous Sulfate (Feosol -) 325 mg PO BID [facility] Last Admin: 09/10/16 10:39 Dose: 325 mg Furosemide (Lasix Injection -) 40 mg IVPUSH BID@0600,1400 [facility] Last Admin: 09/10/16 15:03 Dose: 40 mg Losartan Potassium (Cozaar -) 25 mg PO DAILY [facility] Last Admin: 09/07/16 10:10 Dose: 25 mg Nepafenac 0.3% Opth (Drops) 1 each OD DAILY [facility] Durezol 0.05% Opth Drops - Patient Own Med 1 each OD BID [facility] Last Admin: 09/10/16 10:38 Dose: 1 each Spironolactone (Aldactone -) 25 mg PO DAILY [facility] Last Admin: 09/10/16 10:39 Dose: 25 mg Warfarin Sodium (Coumadin -) 3 mg PO DAILY@1800 [facility] Last Admin: 09/09/16 17:41 Dose: 3 mg Zolpidem Tartrate (Ambien -) 5 mg PO HS [facility] Last Admin: 09/09/16 23:21 Dose: 5 mg - Objective Vital Signs: Vital Signs Temperature 97 F L 09/10/16 15:00 Pulse Rate 55 L 09/10/16 15:00 Respiratory Rate 20 09/10/16 15:00 Blood Pressure 127/48 09/10/16 15:00 O2 Sat by Pulse Oximetry (%) 96 09/10/16 11:52 Constitutional: Yes: Calm Eyes: Yes: Conjunctiva Clear Cardiovascular: Yes: Murmur, S1, S2 Respiratory: Yes: On Nasal O2 Gastrointestinal: Yes: Soft Genitourinary: Yes: WNL Musculoskeletal: Yes: Muscle Weakness Edema: Yes Edema: LLE: 2+, RLE: 2+ Neurological: Yes: Oriented Psychiatric: Yes: Oriented Labs: CBC, BMP 09/10/16 05:30 09/10/16 05:30 INR, PTT INR 1.88 (0.82-1.09) H 09/10/16 05:30 Problem List - Problems (1) Anemia Code(s): D64.9 - ANEMIA, UNSPECIFIED Qualifiers: Anemia type: iron deficiency (2) CHF (congestive heart failure) Code(s): I50.9 - HEART FAILURE, UNSPECIFIED Qualifiers: Congestive heart failure type: diastolic Congestive heart failure chronicity: acute on chronic Qualified Code(s): I50.33 - Acute on chronic diastolic (congestive) heart failure (3) Cholelithiasis Code(s): K80.20 - CALCULUS OF GALLBLADDER W/O CHOLECYSTITIS W/O OBSTRUCTION Qualifiers: Cholelithiasis location: gallbladder Cholecystitis presence: without cholecystitis Biliary obstruction: without biliary obstruction Qualified Code(s): K80.20 - Calculus of gallbladder without cholecystitis without obstruction (4) Hepatic cirrhosis Code(s): K74.60 - UNSPECIFIED CIRRHOSIS OF LIVER Qualifiers: Hepatic cirrhosis type: unspecified hepatic cirrhosis Ascites presence : without ascites Qualified Code(s): K74.60 - Unspecified cirrhosis of liver (5) S/P AVR (aortic valve replacement) Code(s): Z95.2 - PRESENCE OF PROSTHETIC HEART VALVE (6) S/P MVR (mitral valve replacement) Code(s): Z95.2 - PRESENCE OF PROSTHETIC HEART VALVE (8) Shortness of breath Code(s): R06.02 - SHORTNESS OF BREATH (9) RADHA (acute kidney injury) Code(s): N17.9 - ACUTE KIDNEY FAILURE, UNSPECIFIED Assessment/Plan Current Medications Generic Name Dose Route Start Last Admin Trade Name Freq PRN Reason Stop Dose Admin Acetaminophen 650 mg 09/05/16 20:01 Tylenol - PO Q6H PRN FEVER OR PAIN Albuterol Sulfate 1 amp 09/08/16 10:48 09/09/16 22:45 Ventolin 0.083% Nebulizer Soln - NEB 1 amp Q4H PRN Administration SHORT OF BREATH/WHEEZING Artificial Tears 1 drop 09/05/16 20:04 Artificial Tears OD DAILY PRN DRY EYES Bacitracin 1 applic 09/10/16 22:00 Bacitracin - TP BID [facility] Ferrous Sulfate 325 mg 09/05/16 22:00 09/10/16 10:39 Feosol - PO 325 mg BID ABELARDO Administration Furosemide 40 mg 09/06/16 14:00 09/10/16 15:03 Lasix Injection - IVPUSH 40 mg BID@0600,1400 ABELARDO Administration Losartan Potassium 25 mg 09/06/16 10:00 09/07/16 10:10 Cozaar - PO 25 mg DAILY ABEL[facility]O Administration Nepafenac 0.3% Opth 1 each 09/06/16 10:00 Drops OD DAILY [facility] Durezol 0.05% Opth 1 each 09/07/16 22:00 09/10/16 10:38 Drops - Patient Own OD 1 each Med BID ABELARDO Administration Spironolactone 25 mg 09/09/16 10:15 09/10/16 10:39 Aldactone - PO 25 mg DAILY ABELARDO Administration Warfarin Sodium 3 mg 09/06/16 18:00 09/09/16 17:41 Coumadin - PO 3 mg DAILY@1800 ABELARDO Administration Zolpidem Tartrate 5 mg 09/07/16 22:00 09/09/16 23:21 Ambien - PO 5 mg HS ABELARDO Administration Impression 1. RADHA 2. aortic valve replacement 3. mitral valve replacement 4. tricuspid valve replacement 5. CHF 6. a-fib 7. anemia 8. hx GI bleed 9. HTN Plan - cont with diuretics - cont cozaar - repeat labs in am - cardio follow up - likely cardiorenal disease as pt has significant cardiac disease - resume cozaar - may have to also add a thiazide like diuretics - atrophic kidney on ultrasound - cardio input appreciated Dr Bo
[2016-09-10] MEDS: WARFARIN NA 3 MG TABLET PO SCH (17:52)
[2016-09-10] MEDS ORDERED: PT OWN MED DRAWER 7, Y5N ONE (21:09)
[2016-09-10] MEDS: BACITRACIN 30 GM TUBE TOPICAL OINTMENT TP SCH (21:15)
[2016-09-10] MEDS: ZOLPIDEM TARTRATE 5 MG TABLET PO SCH (21:15)
[2016-09-11] MEDS: FUROSEMIDE 40 MG/4 ML INJECTABLE VIAL IVPUSH SCH ×2 (07:00→14:36)
[2016-09-11 07:13] LABS: BASOPHIL 0.7 % (0-2.0); EOSINOPHIL 4.2 % (0-4.5); MCH 29.1 pg (25.7-33.7); MCHC 33.1 g/dl (32.0-36.0); MEAN CELL VOLUME 88.1 fl (80-96); MEAN PLT VOLUME 8.9 fl (7.5-11.1); NEUTROPHILS 63.3 % (42.8-82.8); PLATELET COUNT 192 K/MM3 (134-434); RDW 15.8 % (11.6-15.6); WHITE BLOOD COUNT 4.3 K/mm3 (4.0-10.0)
[2016-09-11 07:34] LABS: INR 1.88 (0.82-1.09)
[2016-09-11 07:42] LABS: ALBUMIN 3.5 g/dl (3.4-5.0); CALCIUM 8.6 mg/dL (8.5-10.1)
[2016-09-11] MEDS: BACITRACIN 30 GM TUBE TOPICAL OINTMENT TP SCH ×2 (09:53→23:06)
[2016-09-11] MEDS: DUREZOL 0.05% OD SCH ×2 (09:53→23:06)
[2016-09-11] MEDS: OPTH OD SCH ×2 (09:53→23:06)
[2016-09-11] MEDS: LOSARTAN POTASSIUM 50 MG TABLET (FP) PO SCH (09:54)
[2016-09-11] MEDS: SPIRONOLACTONE 25 MG TABLET (FP) PO SCH (09:54)
[2016-09-11] MEDS: FERROUS SO4 325 MG TABLET (FP) PO SCH ×2 (09:54→23:06)
--- NOTE | 2016-09-11 10:31 | PN ---
Progress Note, Physician Chief Complaint: AWAKE ALERT ON COMMODE URINATING SHE REPORTS URINARY OUTPUT IMPROVED TODAY HER DAILY WEIGHTS HAVE INCREASED SINCE ADMISSION - Current Medication List Current Medications: Active Medications Acetaminophen (Tylenol -) 650 mg PO Q6H PRN PRN Reason: FEVER OR PAIN Albuterol Sulfate (Ventolin 0.083% Nebulizer Soln -) 1 amp NEB Q4H PRN PRN Reason: SHORT OF BREATH/WHEEZING Last Admin: 09/09/16 22:45 Dose: 1 amp Artificial Tears (Artificial Tears) 1 drop OD DAILY PRN PRN Reason: DRY EYES Bacitracin (Bacitracin -) 1 applic TP BID [facility] Last Admin: 09/11/16 09:53 Dose: 1 applic Ferrous Sulfate (Feosol -) 325 mg PO BID [facility] Last Admin: 09/11/16 09:54 Dose: 325 mg Furosemide (Lasix Injection -) 40 mg IVPUSH BID@0600,1400 [facility] Last Admin: 09/11/16 07:00 Dose: 40 mg Losartan Potassium (Cozaar -) 25 mg PO DAILY [facility] Last Admin: 09/11/16 09:54 Dose: 25 mg Nepafenac 0.3% Opth (Drops) 1 each OD DAILY [facility] Durezol 0.05% Opth Drops - Patient Own Med 1 each OD BID [facility] Last Admin: 09/11/16 09:53 Dose: 1 each Spironolactone (Aldactone -) 25 mg PO DAILY [facility] Last Admin: 09/11/16 09:54 Dose: 25 mg Warfarin Sodium (Coumadin -) 3 mg PO DAILY@1800 [facility] Last Admin: 09/10/16 17:52 Dose: 3 mg Zolpidem Tartrate (Ambien -) 5 mg PO HS [facility] Last Admin: 09/10/16 21:15 Dose: 5 mg - Objective Vital Signs: Vital Signs Temperature 97.6 F 09/11/16 09:51 Pulse Rate 81 09/11/16 09:51 Respiratory Rate 20 09/11/16 09:51 Blood Pressure 126/55 09/11/16 09:51 O2 Sat by Pulse Oximetry (%) 91 L 09/10/16 22:00 Constitutional: Yes: Mild Distress Eyes: Yes: WNL HENT: Yes: WNL Neck: Yes: WNL Cardiovascular: Yes: Murmur, Other Respiratory: Yes: On Nasal O2, Poor Air Entry, SOB Gastrointestinal: Yes: WNL Genitourinary: Yes: Other Musculoskeletal: Yes: Muscle Weakness Extremities: Yes: WNL Edema: Yes Edema: LLE: 2+, RLE: 2+ Peripheral Pulses WNL: Yes Integumentary: Yes: Erythema, Rash, Skin Tear Wound/Incision: Yes: Dressing Dry and Intact Neurological: Yes: Unsteady Gait, Other ...Motor Strength: LLE, RLE Psychiatric: Yes: WNL Labs: CBC, BMP 09/11/16 06:00 09/11/16 06:00 INR, PTT INR 1.88 (0.82-1.09) H 09/11/16 06:00 Problem List - Problems (1) Anemia Code(s): D64.9 - ANEMIA, UNSPECIFIED Qualifiers: Anemia type: iron deficiency (2) CHF (congestive heart failure) Code(s): I50.9 - HEART FAILURE, UNSPECIFIED Qualifiers: Congestive heart failure type: diastolic Congestive heart failure chronicity: acute on chronic Qualified Code(s): I50.33 - Acute on chronic diastolic (congestive) heart failure (3) Elevated serum creatinine Code(s): R79.89 - OTHER SPECIFIED ABNORMAL FINDINGS OF BLOOD CHEMISTRY (4) Hepatic cirrhosis Code(s): K74.60 - UNSPECIFIED CIRRHOSIS OF LIVER Qualifiers: Hepatic cirrhosis type: unspecified hepatic cirrhosis Ascites presence : without ascites Qualified Code(s): K74.60 - Unspecified cirrhosis of liver (5) Rheumatic heart disease Code(s): I09.9 - RHEUMATIC HEART DISEASE, UNSPECIFIED (6) S/P AVR (aortic valve replacement) Code(s): Z95.2 - PRESENCE OF PROSTHETIC HEART VALVE (7) S/P MVR (mitral valve replacement) Code(s): Z95.2 - PRESENCE OF PROSTHETIC HEART VALVE (9) Shortness of breath Code(s): R06.02 - SHORTNESS OF BREATH Assessment/Plan LASIX 40MG BID ADD XAROXYLYN 2.5MG TODAY REEVALUATE SCALE AND DAILY WEIGHTS WITH NURSING STAFF ADVANCED DIRECTIVES TO BE REVIEWED WITH PATIENT AND FAMILY MEMBERS 02 SUPPORT DINORA FUCHS
--- NOTE | 2016-09-11 11:00 | PN ---
Progress Note, Physician Chief Complaint: Dyspnea persists, but better and improving History of Present Illness: Patient was seen and examined. Awake and alert. Chart was reviewed Denies chest pain or palpitations Less SOB Pedal edema persists, but improving - Current Medication List Current Medications: Active Medications Acetaminophen (Tylenol -) 650 mg PO Q6H PRN PRN Reason: FEVER OR PAIN Albuterol Sulfate (Ventolin 0.083% Nebulizer Soln -) 1 amp NEB Q4H PRN PRN Reason: SHORT OF BREATH/WHEEZING Last Admin: 09/09/16 22:45 Dose: 1 amp Artificial Tears (Artificial Tears) 1 drop OD DAILY PRN PRN Reason: DRY EYES Bacitracin (Bacitracin -) 1 applic TP BID [facility] Last Admin: 09/11/16 09:53 Dose: 1 applic Ferrous Sulfate (Feosol -) 325 mg PO BID [facility] Last Admin: 09/11/16 09:54 Dose: 325 mg Furosemide (Lasix Injection -) 40 mg IVPUSH BID@0600,1400 [facility] Last Admin: 09/11/16 07:00 Dose: 40 mg Losartan Potassium (Cozaar -) 25 mg PO DAILY [facility] Last Admin: 09/11/16 09:54 Dose: 25 mg Metolazone (Zaroxolyn -) 2.5 mg PO DAILY [facility] Nepafenac 0.3% Opth (Drops) 1 each OD DAILY [facility] Durezol 0.05% Opth Drops - Patient Own Med 1 each OD BID [facility] Last Admin: 09/11/16 09:53 Dose: 1 each Spironolactone (Aldactone -) 25 mg PO DAILY [facility] Last Admin: 09/11/16 09:54 Dose: 25 mg Warfarin Sodium (Coumadin -) 3 mg PO DAILY@1800 [facility] Last Admin: 09/10/16 17:52 Dose: 3 mg Zolpidem Tartrate (Ambien -) 5 mg PO HS [facility] Last Admin: 09/10/16 21:15 Dose: 5 mg - Objective Vital Signs: Vital Signs Temperature 97.6 F 09/11/16 09:51 Pulse Rate 81 09/11/16 09:51 Respiratory Rate 20 09/11/16 09:51 Blood Pressure 126/55 09/11/16 09:51 O2 Sat by Pulse Oximetry (%) 91 L 09/10/16 22:00 Neck: Yes: Supple Cardiovascular: Yes: Pulse Irregular, Murmur (Soft decrescendo murmur and soft diastolic murmur), S1, S2 Respiratory: Yes: Diminished Gastrointestinal: Yes: Normal Bowel Sounds, Soft. No: Tenderness Edema: Yes Edema: LLE: 1+, RLE: 1+ Additional Findings/Remarks: - Review of Systems Constitutional: denies: Chills Cardiovascular: reports: Shortness of Breath. denies: Chest Pain, Palpitations Respiratory: reports: SOB, SOB on Exertion. denies: Cough, Hemoptysis, Orthopnea, PND Gastrointestinal: denies: Abdominal Pain, Constipation, Diarrhea, Melena, Nausea , Rectal Bleeding, Vomiting Musculoskeletal: denies: Joint Pain Neurological: denies: Dizziness, Headache, Seizure, Syncope Labs: CBC, BMP 09/11/16 06:00 09/11/16 06:00 INR, PTT INR 1.88 (0.82-1.09) H 09/11/16 06:00 Problem List - Problems (1) CHF (congestive heart failure) Code(s): I50.9 - HEART FAILURE, UNSPECIFIED Qualifiers: Congestive heart failure type: diastolic Congestive heart failure chronicity: acute on chronic Qualified Code(s): I50.33 - Acute on chronic diastolic (congestive) heart failure (2) Shortness of breath Code(s): R06.02 - SHORTNESS OF BREATH (3) S/P MVR (mitral valve replacement) Code(s): Z95.2 - PRESENCE OF PROSTHETIC HEART VALVE (4) Rheumatic heart disease Code(s): I09.9 - RHEUMATIC HEART DISEASE, UNSPECIFIED (5) S/P AVR (aortic valve replacement) Code(s): Z95.2 - PRESENCE OF PROSTHETIC HEART VALVE (7) Anemia Code(s): D64.9 - ANEMIA, UNSPECIFIED Qualifiers: Anemia type: iron deficiency (8) Hepatic cirrhosis Code(s): K74.60 - UNSPECIFIED CIRRHOSIS OF LIVER Qualifiers: Hepatic cirrhosis type: unspecified hepatic cirrhosis Ascites presence : without ascites Qualified Code(s): K74.60 - Unspecified cirrhosis of liver Assessment/Plan 1. Clinical presentation c/w acute on chronic LV diastolic failure with NYHA II- III classification heart failure 2. Post MVR and AVR (mechanical prosthesis) with history of rheumatic heart disease 3. Post TVR (bioprosthesis) with moderate tricuspid regurgitation and severe pulmonary hypertension 4. Permanent atrial fibrillation 5. Anemia 6. History of hepatic cirrhosis and cholelithiasis 7. Hyponatremia PLAN: 1. Continue IV Lasix 40 mg BID as tolerated and monitor renal function and electrolytes. Monitor I/Os. Patient is also on Spironolactone and Zaroxolyn for added diuresis. 2. Continue Coumadin as per INR 3. Continue Cozaar as tolerated. Currently not on beta yuly and held due to history of bradycardia 4. Transthoracic echocardiography was reviewed 5. Monitor CBC (H/H) and sodium level Further plans are to follow Elio Barroso MD
[2016-09-11] MEDS: METOLAZONE 2.5 MG TABLET (FP) PO SCH ×2 (12:46→13:58)
--- NOTE | 2016-09-11 14:44 | PN ---
Progress Note (short form) - Note Progress Note: Progress Note Progress Note Patient Name: SYED PANIAGUA Date of : 1930 Patient Status: Inpatient Attending Provider: Braeden Dimas Feels less SOB. No CP. No acute events overnight. Intake & Output 09/08/16 09/09/16 09/10/16 09/11/16 23:59 23:59 23:59 23:59 Intake Total 150 620 620 50 Output Total 338 478 8608 Balance -50 220 620 -1050 Weight 152 lb 6 oz 155 lb 6.4 oz 156 lb 6 oz 155 lb 2 oz Last Vital Signs Temp Pulse Resp BP Pulse Ox 98 F 80 20 128/54 91 L 09/11/16 11:19 09/11/16 11:19 09/11/16 11:19 09/11/16 11:19 09/10/16 22:00 Active Medications Acetaminophen (Tylenol -) 650 mg PO Q6H PRN PRN Reason: FEVER OR PAIN Albuterol Sulfate (Ventolin 0.083% Nebulizer Soln -) 1 amp NEB Q4H PRN PRN Reason: SHORT OF BREATH/WHEEZING Last Admin: 09/09/16 22:45 Dose: 1 amp Artificial Tears (Artificial Tears) 1 drop OD DAILY PRN PRN Reason: DRY EYES Bacitracin (Bacitracin -) 1 applic TP BID [facility] Last Admin: 09/11/16 09:53 Dose: 1 applic Ferrous Sulfate (Feosol -) 325 mg PO BID [facility] Last Admin: 09/11/16 09:54 Dose: 325 mg Furosemide (Lasix Injection -) 40 mg IVPUSH BID@0600,1400 [facility] Last Admin: 09/11/16 14:36 Dose: 40 mg Losartan Potassium (Cozaar -) 25 mg PO DAILY [facility] Last Admin: 09/11/16 09:54 Dose: 25 mg Metolazone (Zaroxolyn -) 2.5 mg PO DAILY@1330 [facility] Last Admin: 09/11/16 13:58 Dose: 2.5 mg Nepafenac 0.3% Opth (Drops) 1 each OD DAILY [facility] Durezol 0.05% Opth Drops - Patient Own Med 1 each OD BID [facility] Last Admin: 09/11/16 09:53 Dose: 1 each Spironolactone (Aldactone -) 25 mg PO DAILY [facility] Last Admin: 09/11/16 09:54 Dose: 25 mg Warfarin Sodium (Coumadin -) 3 mg PO DAILY@1800 [facility] Last Admin: 09/10/16 17:52 Dose: 3 mg Zolpidem Tartrate (Ambien -) 5 mg PO HS [facility] Last Admin: 09/10/16 21:15 Dose: 5 mg Constitutional: Yes: NAD Eyes: Yes: WNL HENT: Yes: WNL Neck: Yes: WNL Cardiovascular: Yes: Pulse Irregular, S1, S2 Respiratory: Yes: Bibasilar Rales Gastrointestinal: Yes: Normal Bowel Sounds, Soft Extremities: Yes: WNL, Other (chronic stasis changes bilaterally) Labs: Laboratory Results - last 24 hr 09/11/16 09/11/16 09/11/16 06:00 06:00 06:00 WBC 4.3 RBC 3.22 L Hgb 9.4 L Hct 28.3 L MCV 88.1 MCHC 33.1 RDW 15.8 H Plt Count 192 MPV 8.9 Neutrophils % 63.3 Lymphocytes % 18.0 D Monocytes % 13.8 H Eosinophils % 4.2 Basophils % 0.7 INR 1.88 H Sodium 132 L Potassium 4.4 Chloride 92 L Carbon Dioxide 32 Anion Gap 8 BUN 74 H Creatinine 1.0 D Creat Clearance w eGFR 52.95 Random Glucose 97 Calcium 8.6 Total Bilirubin 1.0 AST 134 H ALT 72 Alkaline Phosphatase 153 H Total Protein 7.0 Albumin 3.5 Problem List - Problems (1) RADHA (acute kidney injury) Code(s): N17.9 - ACUTE KIDNEY FAILURE, UNSPECIFIED (2) Anemia Code(s): D64.9 - ANEMIA, UNSPECIFIED Qualifiers: Anemia type: iron deficiency (3) CHF (congestive heart failure) Code(s): I50.9 - HEART FAILURE, UNSPECIFIED Qualifiers: Congestive heart failure type: diastolic Congestive heart failure chronicity: acute on chronic Qualified Code(s): I50.33 - Acute on chronic diastolic (congestive) heart failure (4) Cholelithiasis Code(s): K80.20 - CALCULUS OF GALLBLADDER W/O CHOLECYSTITIS W/O OBSTRUCTION Qualifiers: Cholelithiasis location: gallbladder Cholecystitis presence: without cholecystitis Biliary obstruction: without biliary obstruction Qualified Code(s): K80.20 - Calculus of gallbladder without cholecystitis without obstruction (5) Elevated serum creatinine Code(s): R79.89 - OTHER SPECIFIED ABNORMAL FINDINGS OF BLOOD CHEMISTRY (6) Hepatic cirrhosis Code(s): K74.60 - UNSPECIFIED CIRRHOSIS OF LIVER Qualifiers: Hepatic cirrhosis type: unspecified hepatic cirrhosis Ascites presence : without ascites Qualified Code(s): K74.60 - Unspecified cirrhosis of liver (7) Rheumatic heart disease Code(s): I09.9 - RHEUMATIC HEART DISEASE, UNSPECIFIED (8) S/P AVR (aortic valve replacement) Code(s): Z95.2 - PRESENCE OF PROSTHETIC HEART VALVE (9) S/P MVR (mitral valve replacement) Code(s): Z95.2 - PRESENCE OF PROSTHETIC HEART VALVE (11) Shortness of breath Code(s): R06.02 - SHORTNESS OF BREATH Assessment/Plan IMP CHF VALVULAR HD S/P MVR,AVR,TVR HTN AFIB ACUTE ON CHRONIC KIDNEY INJURY H/O CIRRHOSIS H/O RHEUMATIC HEART DISEASE PLAN CONTINUE LASIX,ALDACTONE SUPPLEMENTAL O2 DAILY WTS ANTICOAGULATION MONITOR LYTES,RENAL FUNCTION Dr Miller
[2016-09-11] MEDS: ALBUTEROL SO4 0.083% IH SOL 2.5 MG/3 ML VIAL.NEB. NEB PRN ×2 (14:50→22:25)
--- NOTE | 2016-09-11 15:02 | PN ---
Progress Note, Physician History of Present Illness: Pt seen and examined at bedside. She still complains of shortness of breath and lower extremity edema. - Current Medication List Current Medications: Active Medications Acetaminophen (Tylenol -) 650 mg PO Q6H PRN PRN Reason: FEVER OR PAIN Albuterol Sulfate (Ventolin 0.083% Nebulizer Soln -) 1 amp NEB Q4H PRN PRN Reason: SHORT OF BREATH/WHEEZING Last Admin: 09/09/16 22:45 Dose: 1 amp Artificial Tears (Artificial Tears) 1 drop OD DAILY PRN PRN Reason: DRY EYES Bacitracin (Bacitracin -) 1 applic TP BID [facility] Last Admin: 09/11/16 09:53 Dose: 1 applic Ferrous Sulfate (Feosol -) 325 mg PO BID [facility] Last Admin: 09/11/16 09:54 Dose: 325 mg Furosemide (Lasix Injection -) 40 mg IVPUSH BID@0600,1400 [facility] Last Admin: 09/11/16 14:36 Dose: 40 mg Losartan Potassium (Cozaar -) 25 mg PO DAILY [facility] Last Admin: 09/11/16 09:54 Dose: 25 mg Metolazone (Zaroxolyn -) 2.5 mg PO DAILY@1330 [facility] Last Admin: 09/11/16 13:58 Dose: 2.5 mg Nepafenac 0.3% Opth (Drops) 1 each OD DAILY [facility] Durezol 0.05% Opth Drops - Patient Own Med 1 each OD BID [facility] Last Admin: 09/11/16 09:53 Dose: 1 each Spironolactone (Aldactone -) 25 mg PO DAILY [facility] Last Admin: 09/11/16 09:54 Dose: 25 mg Warfarin Sodium (Coumadin -) 3 mg PO DAILY@1800 [facility] Last Admin: 09/10/16 17:52 Dose: 3 mg Zolpidem Tartrate (Ambien -) 5 mg PO HS [facility] Last Admin: 09/10/16 21:15 Dose: 5 mg - Objective Vital Signs: Vital Signs Temperature 98 F 09/11/16 11:19 Pulse Rate 80 09/11/16 11:19 Respiratory Rate 20 09/11/16 11:19 Blood Pressure 128/54 09/11/16 11:19 O2 Sat by Pulse Oximetry (%) 91 L 09/10/16 22:00 Constitutional: Yes: Calm Eyes: Yes: Conjunctiva Clear HENT: Yes: Atraumatic Cardiovascular: Yes: Murmur, S1, S2 Respiratory: Yes: On Nasal O2, Wheezes Gastrointestinal: Yes: Normal Bowel Sounds, Soft Genitourinary: Yes: WNL Edema: Yes Edema: LLE: 1+, RLE: 1+ Neurological: Yes: Oriented Psychiatric: Yes: Oriented Labs: CBC, BMP 09/11/16 06:00 09/11/16 06:00 INR, PTT INR 1.88 (0.82-1.09) H 09/11/16 06:00 Problem List - Problems (1) Anemia Code(s): D64.9 - ANEMIA, UNSPECIFIED Qualifiers: Anemia type: iron deficiency (2) CHF (congestive heart failure) Code(s): I50.9 - HEART FAILURE, UNSPECIFIED Qualifiers: Congestive heart failure type: diastolic Congestive heart failure chronicity: acute on chronic Qualified Code(s): I50.33 - Acute on chronic diastolic (congestive) heart failure (3) Cholelithiasis Code(s): K80.20 - CALCULUS OF GALLBLADDER W/O CHOLECYSTITIS W/O OBSTRUCTION Qualifiers: Cholelithiasis location: gallbladder Cholecystitis presence: without cholecystitis Biliary obstruction: without biliary obstruction Qualified Code(s): K80.20 - Calculus of gallbladder without cholecystitis without obstruction (4) Hepatic cirrhosis Code(s): K74.60 - UNSPECIFIED CIRRHOSIS OF LIVER Qualifiers: Hepatic cirrhosis type: unspecified hepatic cirrhosis Ascites presence : without ascites Qualified Code(s): K74.60 - Unspecified cirrhosis of liver (5) S/P AVR (aortic valve replacement) Code(s): Z95.2 - PRESENCE OF PROSTHETIC HEART VALVE (6) S/P MVR (mitral valve replacement) Code(s): Z95.2 - PRESENCE OF PROSTHETIC HEART VALVE (8) Shortness of breath Code(s): R06.02 - SHORTNESS OF BREATH (9) RADHA (acute kidney injury) Code(s): N17.9 - ACUTE KIDNEY FAILURE, UNSPECIFIED Assessment/Plan Current Medications Generic Name Dose Route Start Last Admin Trade Name Freq PRN Reason Stop Dose Admin Acetaminophen 650 mg 09/05/16 20:01 Tylenol - PO Q6H PRN FEVER OR PAIN Albuterol Sulfate 1 amp 09/08/16 10:48 09/09/16 22:45 Ventolin 0.083% Nebulizer Soln - NEB 1 amp Q4H PRN Administration SHORT OF BREATH/WHEEZING Artificial Tears 1 drop 09/05/16 20:04 Artificial Tears OD DAILY PRN DRY EYES Bacitracin 1 applic 09/10/16 22:00 09/11/16 09:53 Bacitracin - TP 1 applic BID [facility] Administration Ferrous Sulfate 325 mg 09/05/16 22:00 09/11/16 09:54 Feosol - PO 325 mg BID [facility] Administration Furosemide 40 mg 09/06/16 14:00 09/11/16 14:36 Lasix Injection - IVPUSH 40 mg BID@0600,1400 [facility] Administration Losartan Potassium 25 mg 09/06/16 10:00 09/11/16 09:54 Cozaar - PO 25 mg DAILY [facility] Administration Metolazone 2.5 mg 09/11/16 13:30 09/11/16 13:58 Zaroxolyn - PO 2.5 mg DAILY@1330 [facility] Administration Nepafenac 0.3% Opth 1 each 09/06/16 10:00 Drops OD DAILY [facility] Durezol 0.05% Opth 1 each 09/07/16 22:00 09/11/16 09:53 Drops - Patient Own OD 1 each Med BID [facility] Administration Spironolactone 25 mg 09/09/16 10:15 09/11/16 09:54 Aldactone - PO 25 mg DAILY [facility] Administration Warfarin Sodium 3 mg 09/06/16 18:00 09/10/16 17:52 Coumadin - PO 3 mg DAILY@1800 [facility] Administration Zolpidem Tartrate 5 mg 09/07/16 22:00 09/10/16 21:15 Ambien - PO 5 mg HS [facility] Administration Impression 1. RADHA 2. aortic valve replacement 3. mitral valve replacement 4. tricuspid valve replacement 5. CHF 6. a-fib 7. anemia 8. hx GI bleed 9. HTN Plan - cont current diuretics - monitor sodium closely - creatinine is improving - cozaar restarted - likely cardiorenal disease as pt has significant cardiac disease - atrophic kidney on ultrasound - cardio input appreciated Dr Bo
[2016-09-11] MEDS: WARFARIN NA 3 MG TABLET PO SCH (17:46)
[2016-09-11] MEDS: ZOLPIDEM TARTRATE 5 MG TABLET PO SCH (23:05)
[2016-09-12] MEDS: FUROSEMIDE 40 MG/4 ML INJECTABLE VIAL IVPUSH SCH ×2 (05:52→15:08)
[2016-09-12 07:26] LABS: INR 2.22 (0.82-1.09); PROTHROMBIN TIME (PATIENT) 24.8 SEC (9.98-11.88)
[2016-09-12 08:01] LABS: CALCIUM 8.4 mg/dL (8.5-10.1)
[2016-09-12 08:03] LABS: CREATININE 1.1 mg/dL (0.55-1.02)
--- NOTE | 2016-09-12 09:53 | PN ---
Progress Note, Physician History of Present Illness: Dyspnea and LE edema slowly improving. - Current Medication List Current Medications: Active Medications Acetaminophen (Tylenol -) 650 mg PO Q6H PRN PRN Reason: FEVER OR PAIN Albuterol Sulfate (Ventolin 0.083% Nebulizer Soln -) 1 amp NEB Q4H PRN PRN Reason: SHORT OF BREATH/WHEEZING Last Admin: 09/11/16 22:25 Dose: 1 amp Artificial Tears (Artificial Tears) 1 drop OD DAILY PRN PRN Reason: DRY EYES Bacitracin (Bacitracin -) 1 applic TP BID [facility] Last Admin: 09/11/16 23:06 Dose: 1 applic Ferrous Sulfate (Feosol -) 325 mg PO BID [facility] Last Admin: 09/11/16 23:06 Dose: 325 mg Furosemide (Lasix Injection -) 40 mg IVPUSH BID@0600,1400 [facility] Last Admin: 09/12/16 05:52 Dose: 40 mg Losartan Potassium (Cozaar -) 25 mg PO DAILY [facility] Last Admin: 09/11/16 09:54 Dose: 25 mg Metolazone (Zaroxolyn -) 2.5 mg PO DAILY@1330 [facility] Last Admin: 09/11/16 13:58 Dose: 2.5 mg Nepafenac 0.3% Opth (Drops) 1 each OD DAILY [facility] Durezol 0.05% Opth Drops - Patient Own Med 1 each OD BID [facility] Last Admin: 09/11/16 23:06 Dose: 1 each Spironolactone (Aldactone -) 25 mg PO DAILY [facility] Last Admin: 09/11/16 09:54 Dose: 25 mg Warfarin Sodium (Coumadin -) 3 mg PO DAILY@1800 [facility] Last Admin: 09/11/16 17:46 Dose: 3 mg Zolpidem Tartrate (Ambien -) 5 mg PO HS [facility] Last Admin: 09/11/16 23:05 Dose: 5 mg - Objective Vital Signs: Vital Signs Temperature 98.0 F 09/12/16 06:00 Pulse Rate 98 H 09/12/16 06:00 Respiratory Rate 19 09/12/16 06:00 Blood Pressure 123/63 09/12/16 06:00 O2 Sat by Pulse Oximetry (%) 90 L 09/11/16 21:00 Constitutional: Yes: No Distress, Calm Neck: Yes: Supple Cardiovascular: Yes: Pulse Irregular, Murmur, Other (Day mechanical valve sounds) Respiratory: Yes: Regular, Diminished, On Nasal O2 Gastrointestinal: Yes: Normal Bowel Sounds, Soft Edema: Yes Edema: LLE: 2+, RLE: 2+ Integumentary: Yes: Venous Stasis Changes Labs: CBC, BMP 09/11/16 06:00 09/12/16 06:00 INR, PTT INR 2.22 (0.82-1.09) H 09/12/16 06:00 Problem List - Problems (1) RADHA (acute kidney injury) Code(s): N17.9 - ACUTE KIDNEY FAILURE, UNSPECIFIED (2) CHF (congestive heart failure) Code(s): I50.9 - HEART FAILURE, UNSPECIFIED Qualifiers: Congestive heart failure type: diastolic Congestive heart failure chronicity: acute on chronic Qualified Code(s): I50.33 - Acute on chronic diastolic (congestive) heart failure (3) Rheumatic heart disease Code(s): I09.9 - RHEUMATIC HEART DISEASE, UNSPECIFIED (4) S/P AVR (aortic valve replacement) Code(s): Z95.2 - PRESENCE OF PROSTHETIC HEART VALVE (5) S/P MVR (mitral valve replacement) Code(s): Z95.2 - PRESENCE OF PROSTHETIC HEART VALVE (7) Shortness of breath Code(s): R06.02 - SHORTNESS OF BREATH (8) Permanent atrial fibrillation Code(s): I48.2 - CHRONIC ATRIAL FIBRILLATION (9) Pulmonary hypertension Code(s): I27.2 - OTHER SECONDARY PULMONARY HYPERTENSION (10) Venous stasis dermatitis of both lower extremities Code(s): I83.11 - VARICOSE VEINS OF RIGHT LOWER EXTREMITY WITH INFLAMMATION I83.12 - VARICOSE VEINS OF LEFT LOWER EXTREMITY WITH INFLAMMATION Assessment/Plan 09/09/2016 Echo: Normal LV size and fxn with mild cLVH, severe DELBERT, mech AVR, MVR , bio TVR, mod TR, RVSP>60 mmHg, mild PA 1. Clinical presentation c/w acute on chronic LV diastolic failure with NYHA II- III classification heart failure 2. Post MVR and AVR (mechanical prosthesis) with history of rheumatic heart disease 3. Post TVR (bioprosthesis) with moderate tricuspid regurgitation and severe pulmonary hypertension 4. Permanent atrial fibrillation 5. Anemia 6. History of hepatic cirrhosis and cholelithiasis 7. Hyponatremia PLAN: 1. Continue Lasix IV 40 mg BID, Spironolactone 25 qd and Zaroxolyn 2.5 qd with monitor diuretic response, renal function and electrolytes. 2. Continue Coumadin as per INR 3.0-3.5 3. Continue Cozaar 25 qd. Currently not on beta yuly and held due to history of bradycardia 4. Transthoracic echocardiography was reviewed 5. Monitor CBC (H/H) and sodium level 6. Wrap legs
[2016-09-12] MEDS ORDERED: PT OWN MED DRAWER 7, Y5N ONE ×2 (09:55→21:20)
[2016-09-12] MEDS: FERROUS SO4 325 MG TABLET (FP) PO SCH ×2 (10:07→21:47)
[2016-09-12] MEDS: LOSARTAN POTASSIUM 50 MG TABLET (FP) PO SCH (10:07)
[2016-09-12] MEDS: SPIRONOLACTONE 25 MG TABLET (FP) PO SCH (10:07)
[2016-09-12] MEDS: OPTH OD SCH ×2 (10:08→21:48)
[2016-09-12] MEDS: DUREZOL 0.05% OD SCH ×2 (10:08→21:48)
[2016-09-12] MEDS: BACITRACIN 30 GM TUBE TOPICAL OINTMENT TP SCH ×2 (10:09→21:47)
--- NOTE | 2016-09-12 10:14 | PN ---
Progress Note, Physician Chief Complaint: AWAKE ALERT WEIGHT5 155LBS NO REDUCTION FROM YESTERDAY PATIENT FLUID INTAKE NOW ON 1 LITER RESTRICTION DYSPNEA WHEN TRANSFERRING FROM CHAIR TO BED - Current Medication List Current Medications: Active Medications Acetaminophen (Tylenol -) 650 mg PO Q6H PRN PRN Reason: FEVER OR PAIN Albuterol Sulfate (Ventolin 0.083% Nebulizer Soln -) 1 amp NEB Q4H PRN PRN Reason: SHORT OF BREATH/WHEEZING Last Admin: 09/11/16 22:25 Dose: 1 amp Artificial Tears (Artificial Tears) 1 drop OD DAILY PRN PRN Reason: DRY EYES Bacitracin (Bacitracin -) 1 applic TP BID [facility] Last Admin: 09/11/16 23:06 Dose: 1 applic Ferrous Sulfate (Feosol -) 325 mg PO BID [facility] Last Admin: 09/11/16 23:06 Dose: 325 mg Furosemide (Lasix Injection -) 40 mg IVPUSH BID@0600,1400 [facility] Last Admin: 09/12/16 05:52 Dose: 40 mg Losartan Potassium (Cozaar -) 25 mg PO DAILY [facility] Last Admin: 09/11/16 09:54 Dose: 25 mg Metolazone (Zaroxolyn -) 2.5 mg PO DAILY@1330 [facility] Last Admin: 09/11/16 13:58 Dose: 2.5 mg Nepafenac 0.3% Opth (Drops) 1 each OD DAILY [facility] Durezol 0.05% Opth Drops - Patient Own Med 1 each OD BID [facility] Last Admin: 09/11/16 23:06 Dose: 1 each Spironolactone (Aldactone -) 25 mg PO DAILY [facility] Last Admin: 09/11/16 09:54 Dose: 25 mg Warfarin Sodium (Coumadin -) 3 mg PO DAILY@1800 [facility] Last Admin: 09/11/16 17:46 Dose: 3 mg Zolpidem Tartrate (Ambien -) 5 mg PO HS [facility] Last Admin: 09/11/16 23:05 Dose: 5 mg - Objective Vital Signs: Vital Signs Temperature 98.0 F 09/12/16 06:00 Pulse Rate 98 H 09/12/16 06:00 Respiratory Rate 19 09/12/16 06:00 Blood Pressure 123/63 09/12/16 06:00 O2 Sat by Pulse Oximetry (%) 90 L 09/11/16 21:00 Constitutional: Yes: Mild Distress Eyes: Yes: WNL HENT: Yes: WNL Cardiovascular: Yes: Pulse Irregular, Murmur Respiratory: Yes: Diminished, On Nasal O2, Rales, SOB Gastrointestinal: Yes: WNL Genitourinary: Yes: WNL, Other Musculoskeletal: Yes: Joint Swelling Extremities: Yes: Erythema Edema: Yes Edema: LLE: 2+, RLE: 2+ Peripheral Pulses WNL: Yes Integumentary: Yes: Erythema, Rash, Venous Stasis Changes Wound/Incision: Yes: Dressing Dry and Intact, Other Neurological: Yes: Unsteady Gait, Weakness ...Motor Strength: LLE, RLE Psychiatric: Yes: Other Labs: CBC, BMP 09/11/16 06:00 09/12/16 06:00 INR, PTT INR 2.22 (0.82-1.09) H 09/12/16 06:00 Problem List - Problems (1) Anemia Code(s): D64.9 - ANEMIA, UNSPECIFIED Qualifiers: Anemia type: iron deficiency (2) CHF (congestive heart failure) Code(s): I50.9 - HEART FAILURE, UNSPECIFIED Qualifiers: Congestive heart failure type: diastolic Congestive heart failure chronicity: acute on chronic Qualified Code(s): I50.33 - Acute on chronic diastolic (congestive) heart failure (3) Elevated serum creatinine Code(s): R79.89 - OTHER SPECIFIED ABNORMAL FINDINGS OF BLOOD CHEMISTRY (4) Hepatic cirrhosis Code(s): K74.60 - UNSPECIFIED CIRRHOSIS OF LIVER Qualifiers: Hepatic cirrhosis type: unspecified hepatic cirrhosis Ascites presence : without ascites Qualified Code(s): K74.60 - Unspecified cirrhosis of liver (5) Rheumatic heart disease Code(s): I09.9 - RHEUMATIC HEART DISEASE, UNSPECIFIED (6) S/P AVR (aortic valve replacement) Code(s): Z95.2 - PRESENCE OF PROSTHETIC HEART VALVE (7) S/P MVR (mitral valve replacement) Code(s): Z95.2 - PRESENCE OF PROSTHETIC HEART VALVE (9) Shortness of breath Code(s): R06.02 - SHORTNESS OF BREATH Assessment/Plan LASIX BID IV, XZAROXYLEN 2.5MG DAILY, ALDACTONE DAILY STILL NO WEIGHT CHANGE DIETARY CONSULT 1 LTER FLUID RESTRICTION WILL NEED INTENSE CARDIAC REHAB CARDIO/PULM/RENAL F/U APPRECIATED INR PENDING, ADJUST COUMADIN ACCORDINGLY
--- NOTE | 2016-09-12 12:04 | PN ---
Progress Note (short form) - Note Progress Note: Progress Note Progress Note Patient Name: SYED PANIAGUA Date of : 1930 Patient Status: Inpatient Attending Provider: Braeden Dimas Feels less SOB. No CP. No acute events overnight. Intake & Output 09/09/16 09/10/16 09/11/16 09/12/16 23:59 23:59 23:59 23:59 Intake Total 620 620 150 Output Total 400 1850 Balance 220 620 -1700 Weight 155 lb 6.4 oz 156 lb 6 oz 155 lb 2 oz 155 lb 5 oz Last Vital Signs Temp Pulse Resp BP Pulse Ox 98.0 F 98 H 19 123/63 90 L 09/12/16 06:00 09/12/16 06:00 09/12/16 06:00 09/12/16 06:00 09/11/16 21:00 Active Medications Acetaminophen (Tylenol -) 650 mg PO Q6H PRN PRN Reason: FEVER OR PAIN Albuterol Sulfate (Ventolin 0.083% Nebulizer Soln -) 1 amp NEB Q4H PRN PRN Reason: SHORT OF BREATH/WHEEZING Last Admin: 09/11/16 22:25 Dose: 1 amp Artificial Tears (Artificial Tears) 1 drop OD DAILY PRN PRN Reason: DRY EYES Bacitracin (Bacitracin -) 1 applic TP BID [facility] Last Admin: 09/12/16 10:09 Dose: 1 applic Ferrous Sulfate (Feosol -) 325 mg PO BID [facility] Last Admin: 09/12/16 10:07 Dose: 325 mg Furosemide (Lasix Injection -) 40 mg IVPUSH BID@0600,1400 [facility] Last Admin: 09/12/16 05:52 Dose: 40 mg Losartan Potassium (Cozaar -) 25 mg PO DAILY [facility] Last Admin: 09/12/16 10:07 Dose: 25 mg Metolazone (Zaroxolyn -) 2.5 mg PO DAILY@1330 [facility] Last Admin: 09/11/16 13:58 Dose: 2.5 mg Nepafenac 0.3% Opth (Drops) 1 each OD DAILY [facility] Durezol 0.05% Opth Drops - Patient Own Med 1 each OD BID [facility] Last Admin: 09/12/16 10:08 Dose: 1 each Spironolactone (Aldactone -) 25 mg PO DAILY [facility] Last Admin: 09/12/16 10:07 Dose: 25 mg Warfarin Sodium (Coumadin -) 3 mg PO DAILY@1800 [facility] Last Admin: 09/11/16 17:46 Dose: 3 mg Zolpidem Tartrate (Ambien -) 5 mg PO HS [facility] Last Admin: 09/11/16 23:05 Dose: 5 mg Constitutional: Yes: NAD Eyes: Yes: WNL HENT: Yes: WNL Neck: Yes: WNL Cardiovascular: Yes: Pulse Irregular, S1, S2 Respiratory: Yes: Bibasilar Rales Gastrointestinal: Yes: Normal Bowel Sounds, Soft Extremities: Yes: WNL, Other (chronic stasis changes bilaterally) Labs: Laboratory Results - last 24 hr 09/11/16 09/12/16 09/12/16 14:30 06:00 06:00 INR 2.22 H Sodium 134 L Potassium 4.2 Chloride 91 L Carbon Dioxide 34 H Anion Gap 9 BUN 72 H Creatinine 1.1 H Random Glucose 88 Calcium 8.4 L Stool Occult Blood Negative Problem List - Problems (1) RADHA (acute kidney injury) Code(s): N17.9 - ACUTE KIDNEY FAILURE, UNSPECIFIED (2) Anemia Code(s): D64.9 - ANEMIA, UNSPECIFIED Qualifiers: Anemia type: iron deficiency (3) CHF (congestive heart failure) Code(s): I50.9 - HEART FAILURE, UNSPECIFIED Qualifiers: Congestive heart failure type: diastolic Congestive heart failure chronicity: acute on chronic Qualified Code(s): I50.33 - Acute on chronic diastolic (congestive) heart failure (4) Cholelithiasis Code(s): K80.20 - CALCULUS OF GALLBLADDER W/O CHOLECYSTITIS W/O OBSTRUCTION Qualifiers: Cholelithiasis location: gallbladder Cholecystitis presence: without cholecystitis Biliary obstruction: without biliary obstruction Qualified Code(s): K80.20 - Calculus of gallbladder without cholecystitis without obstruction (5) Elevated serum creatinine Code(s): R79.89 - OTHER SPECIFIED ABNORMAL FINDINGS OF BLOOD CHEMISTRY (6) Hepatic cirrhosis Code(s): K74.60 - UNSPECIFIED CIRRHOSIS OF LIVER Qualifiers: Hepatic cirrhosis type: unspecified hepatic cirrhosis Ascites presence : without ascites Qualified Code(s): K74.60 - Unspecified cirrhosis of liver (7) Rheumatic heart disease Code(s): I09.9 - RHEUMATIC HEART DISEASE, UNSPECIFIED (8) S/P AVR (aortic valve replacement) Code(s): Z95.2 - PRESENCE OF PROSTHETIC HEART VALVE (9) S/P MVR (mitral valve replacement) Code(s): Z95.2 - PRESENCE OF PROSTHETIC HEART VALVE (11) Shortness of breath Code(s): R06.02 - SHORTNESS OF BREATH Assessment/Plan IMP CHF VALVULAR HD S/P MVR,AVR,TVR HTN AFIB ACUTE ON CHRONIC KIDNEY INJURY H/O CIRRHOSIS H/O RHEUMATIC HEART DISEASE PLAN CONTINUE LASIX,ALDACTONE SUPPLEMENTAL O2 DAILY WTS ANTICOAGULATION MONITOR LYTES,RENAL FUNCTION Dr Miller
[2016-09-12] MEDS: METOLAZONE 2.5 MG TABLET (FP) PO SCH (14:23)
[2016-09-12] MEDS: ALBUTEROL SO4 0.083% IH SOL 2.5 MG/3 ML VIAL.NEB. NEB PRN ×2 (15:17→22:03)
[2016-09-12] MEDS ORDERED: WARFARIN NA 3 MG TABLET PO SCH (17:57)
--- NOTE | 2016-09-12 18:28 | PN ---
Progress Note, Physician History of Present Illness: Pt seen and examined at bedside. Does not feel much different than she did yesterday. - Current Medication List Current Medications: Active Medications Acetaminophen (Tylenol -) 650 mg PO Q6H PRN PRN Reason: FEVER OR PAIN Albuterol Sulfate (Ventolin 0.083% Nebulizer Soln -) 1 amp NEB Q4H PRN PRN Reason: SHORT OF BREATH/WHEEZING Last Admin: 09/12/16 15:17 Dose: 1 amp Artificial Tears (Artificial Tears) 1 drop OD DAILY PRN PRN Reason: DRY EYES Bacitracin (Bacitracin -) 1 applic TP BID [facility] Last Admin: 09/12/16 10:09 Dose: 1 applic Ferrous Sulfate (Feosol -) 325 mg PO BID [facility] Last Admin: 09/12/16 10:07 Dose: 325 mg Furosemide (Lasix Injection -) 40 mg IVPUSH BID@0600,1400 [facility] Last Admin: 09/12/16 15:08 Dose: 40 mg Losartan Potassium (Cozaar -) 25 mg PO DAILY [facility] Last Admin: 09/12/16 10:07 Dose: 25 mg Metolazone (Zaroxolyn -) 2.5 mg PO DAILY@1330 [facility] Last Admin: 09/12/16 14:23 Dose: 2.5 mg Nepafenac 0.3% Opth (Drops) 1 each OD DAILY [facility] Durezol 0.05% Opth Drops - Patient Own Med 1 each OD BID [facility] Last Admin: 09/12/16 10:08 Dose: 1 each Spironolactone (Aldactone -) 25 mg PO DAILY [facility] Last Admin: 09/12/16 10:07 Dose: 25 mg Warfarin Sodium (Coumadin -) 3.5 mg PO DAILY@1800 [facility] Zolpidem Tartrate (Ambien -) 5 mg PO HS [facility] Last Admin: 09/11/16 23:05 Dose: 5 mg - Objective Vital Signs: Vital Signs Temperature 97.9 F 09/12/16 16:30 Pulse Rate 76 09/12/16 16:30 Respiratory Rate 20 09/12/16 16:30 Blood Pressure 141/64 09/12/16 16:30 O2 Sat by Pulse Oximetry (%) 90 L 09/11/16 21:00 Constitutional: Yes: Calm Eyes: Yes: Conjunctiva Clear HENT: Yes: Atraumatic Neck: Yes: Supple Cardiovascular: Yes: Murmur, S1, S2 Respiratory: Yes: Diminished, On Nasal O2 Gastrointestinal: Yes: Soft Musculoskeletal: Yes: Muscle Weakness Edema: Yes Edema: LLE: 2+, RLE: 2+ Neurological: Yes: Oriented Psychiatric: Yes: Oriented Labs: CBC, BMP 09/11/16 06:00 09/12/16 06:00 INR, PTT INR 2.22 (0.82-1.09) H 09/12/16 06:00 Problem List - Problems (1) Anemia Code(s): D64.9 - ANEMIA, UNSPECIFIED Qualifiers: Anemia type: iron deficiency (2) CHF (congestive heart failure) Code(s): I50.9 - HEART FAILURE, UNSPECIFIED Qualifiers: Congestive heart failure type: diastolic Congestive heart failure chronicity: acute on chronic Qualified Code(s): I50.33 - Acute on chronic diastolic (congestive) heart failure (3) Cholelithiasis Code(s): K80.20 - CALCULUS OF GALLBLADDER W/O CHOLECYSTITIS W/O OBSTRUCTION Qualifiers: Cholelithiasis location: gallbladder Cholecystitis presence: without cholecystitis Biliary obstruction: without biliary obstruction Qualified Code(s): K80.20 - Calculus of gallbladder without cholecystitis without obstruction (4) Hepatic cirrhosis Code(s): K74.60 - UNSPECIFIED CIRRHOSIS OF LIVER Qualifiers: Hepatic cirrhosis type: unspecified hepatic cirrhosis Ascites presence : without ascites Qualified Code(s): K74.60 - Unspecified cirrhosis of liver (5) S/P AVR (aortic valve replacement) Code(s): Z95.2 - PRESENCE OF PROSTHETIC HEART VALVE (6) S/P MVR (mitral valve replacement) Code(s): Z95.2 - PRESENCE OF PROSTHETIC HEART VALVE (8) Shortness of breath Code(s): R06.02 - SHORTNESS OF BREATH (9) RADHA (acute kidney injury) Code(s): N17.9 - ACUTE KIDNEY FAILURE, UNSPECIFIED Assessment/Plan Current Medications Generic Name Dose Route Start Last Admin Trade Name Freq PRN Reason Stop Dose Admin Acetaminophen 650 mg 09/05/16 20:01 Tylenol - PO Q6H PRN FEVER OR PAIN Albuterol Sulfate 1 amp 09/08/16 10:48 09/12/16 15:17 Ventolin 0.083% Nebulizer Soln - NEB 1 amp Q4H PRN Administration SHORT OF BREATH/WHEEZING Artificial Tears 1 drop 09/05/16 20:04 Artificial Tears OD DAILY PRN DRY EYES Bacitracin 1 applic 09/10/16 22:00 09/12/16 10:09 Bacitracin - TP 1 applic BID [facility] Administration Ferrous Sulfate 325 mg 09/05/16 22:00 09/12/16 10:07 Feosol - PO 325 mg BID [facility] Administration Furosemide 40 mg 09/06/16 14:00 09/12/16 15:08 Lasix Injection - IVPUSH 40 mg BID@0600,1400 [facility] Administration Losartan Potassium 25 mg 09/06/16 10:00 09/12/16 10:07 Cozaar - PO 25 mg DAILY [facility] Administration Metolazone 2.5 mg 09/11/16 13:30 09/12/16 14:23 Zaroxolyn - PO 2.5 mg DAILY@1330 [facility] Administration Nepafenac 0.3% Opth 1 each 09/06/16 10:00 Drops OD DAILY [facility] Durezol 0.05% Opth 1 each 09/07/16 22:00 09/12/16 10:08 Drops - Patient Own OD 1 each Med BID [facility] Administration Spironolactone 25 mg 09/09/16 10:15 09/12/16 10:07 Aldactone - PO 25 mg DAILY [facility] Administration Warfarin Sodium 3.5 mg 09/12/16 17:57 Coumadin - PO DAILY@1800 [facility] Zolpidem Tartrate 5 mg 09/07/16 22:00 09/11/16 23:05 Ambien - PO 5 mg HS [facility] Administration Impression 1. RADHA 2. aortic valve replacement 3. mitral valve replacement 4. tricuspid valve replacement 5. CHF 6. a-fib 7. anemia 8. hx GI bleed 9. HTN Plan - cardio input appreciated - if she does not diurese by am should start to increase diuretics further - monitor on cozaar - likely cardiorenal disease as pt has significant cardiac disease - atrophic kidney on ultrasound - cardio input appreciated Dr Bo
[2016-09-12] MEDS ORDERED: WARFARIN NA 1 MG TABLET (FP) ONE (19:19)
[2016-09-12] MEDS ORDERED: WARFARIN NA 2.5 MG TABLET (FP) ONE (19:19)
[2016-09-12] MEDS: WARFARIN NA 2.5 MG, WARFARIN NA 1 MG PO SCH (19:23)
[2016-09-12] MEDS: ZOLPIDEM TARTRATE 5 MG TABLET PO SCH (21:47)
[2016-09-13] MEDS: FUROSEMIDE 40 MG/4 ML INJECTABLE VIAL IVPUSH SCH ×2 (06:45→14:17)
[2016-09-13 07:32] LABS: MCH 29.3 pg (25.7-33.7); MCHC 32.8 g/dl (32.0-36.0); MEAN CELL VOLUME 89.3 fl (80-96); MEAN PLT VOLUME 8.9 fl (7.5-11.1); PLATELET COUNT 173 K/MM3 (134-434); RDW 16.3 % (11.6-15.6); WHITE BLOOD COUNT 4.3 K/mm3 (4.0-10.0)
[2016-09-13 07:39] LABS: ALBUMIN 3.4 g/dl (3.4-5.0); CALCIUM 8.6 mg/dL (8.5-10.1)
[2016-09-13 07:40] LABS: INR 2.4 (0.82-1.09); PROTHROMBIN TIME (PATIENT) 26.9 SEC (9.98-11.88)
[2016-09-13 07:44] LABS: BILIRUBIN,TOTAL 0.9 mg/dL (0.2-1.0); CREATININE 1.2 mg/dL (0.55-1.02); TOT PROT 6.6 g/dl (6.4-8.2)
[2016-09-13] MEDS: DUREZOL 0.05% OD SCH ×2 (10:27→22:16)
[2016-09-13] MEDS: LOSARTAN POTASSIUM 50 MG TABLET (FP) PO SCH (10:27)
[2016-09-13] MEDS: FERROUS SO4 325 MG TABLET (FP) PO SCH ×2 (10:27→22:02)
[2016-09-13] MEDS: OPTH OD SCH ×2 (10:27→22:16)
[2016-09-13] MEDS: BACITRACIN 30 GM TUBE TOPICAL OINTMENT TP SCH ×2 (10:28→22:02)
[2016-09-13] MEDS: SPIRONOLACTONE 25 MG TABLET (FP) PO SCH (10:28)
--- NOTE | 2016-09-13 10:50 | PN ---
Progress Note (short form) - Note Progress Note: PULMONARY AWAKE/ALERT FAMILY PRESENT VSS/AFEBRILE ANICTERIC B/L POSTERIOR CRACKLES S1S2 IRREG/SYSTOLIC/DIASTOLIC MURMUR BS+ SOFT 3+ EDEMA B/L LOWER EXT LABS/MEDS/NOTES/IMAGING REVIEWED IMP CHF VALVULAR HD S/P MVR,AVR,TVR HTN AFIB ACUTE ON CHRONIC KIDNEY INJURY H/O CIRRHOSIS H/O RHEUMATIC HEART DISEASE PLAN CONTINUE LASIX,ALDACTONE SUPPLEMENTAL O2 DAILY WTS ANTICOAGULATION MONITOR LYTES,RENAL FUNCTION Rena ORDAZ MD
[2016-09-13 11:08] LABS: ANISOCYTOSIS 1+; HYPOCHROMIA 1+; PLATELET COMMENT2 NO CLOTTING DETECTED; PLATELET ESTIMATE ADEQUATE (NORMAL)
--- NOTE | 2016-09-13 12:55 | PN ---
Progress Note, Physician Chief Complaint: NO NOSE BLEED STILL GETS SOB WHEN WALK HAD D/W SON & PATIENT - Current Medication List Current Medications: Active Medications Acetaminophen (Tylenol -) 650 mg PO Q6H PRN PRN Reason: FEVER OR PAIN Artificial Tears (Artificial Tears) 1 drop OD DAILY PRN PRN Reason: DRY EYES Bacitracin (Bacitracin -) 1 applic TP BID [facility] Last Admin: 09/13/16 10:28 Dose: 1 applic Ferrous Sulfate (Feosol -) 325 mg PO BID [facility] Last Admin: 09/13/16 10:27 Dose: 325 mg Furosemide (Lasix Injection -) 40 mg IVPUSH BID@0600,1400 [facility] Last Admin: 09/13/16 06:45 Dose: 40 mg Losartan Potassium (Cozaar -) 25 mg PO DAILY [facility] Last Admin: 09/13/16 10:27 Dose: 25 mg Metolazone (Zaroxolyn -) 2.5 mg PO DAILY@1330 [facility] Last Admin: 09/12/16 14:23 Dose: 2.5 mg Nepafenac 0.3% Opth (Drops) 1 each OD DAILY [facility] Durezol 0.05% Opth Drops - Patient Own Med 1 each OD BID [facility] Last Admin: 09/13/16 10:27 Dose: 1 each Spironolactone (Aldactone -) 25 mg PO DAILY [facility] Last Admin: 09/13/16 10:28 Dose: 25 mg Warfarin Sodium 2.5 mg/ (Warfarin Sodium 1 mg) 3.5 mg PO DAILY@1800 [facility] Last Admin: 09/12/16 19:23 Dose: 2 mg Zolpidem Tartrate (Ambien -) 5 mg PO HS [facility] Last Admin: 09/12/16 21:47 Dose: 5 mg - Objective Vital Signs: Vital Signs Temperature 97.9 F 09/12/16 16:30 Pulse Rate 76 09/12/16 16:30 Respiratory Rate 20 09/12/16 21:00 Blood Pressure 141/64 09/12/16 16:30 O2 Sat by Pulse Oximetry (%) 90 L 09/11/16 21:00 Constitutional: Yes: Calm HENT: No: Epistaxis Cardiovascular: Yes: S1, S2 Respiratory: Yes: CTA Bilaterally Gastrointestinal: Yes: Normal Bowel Sounds, Soft Edema: Yes Labs: CBC, BMP 09/13/16 06:00 09/13/16 06:00 INR, PTT INR 2.40 (0.82-1.09) H 09/13/16 06:00 Problem List - Problems (1) Anemia Code(s): D64.9 - ANEMIA, UNSPECIFIED Qualifiers: Anemia type: iron deficiency (2) CHF (congestive heart failure) Code(s): I50.9 - HEART FAILURE, UNSPECIFIED Qualifiers: Congestive heart failure type: diastolic Congestive heart failure chronicity: acute on chronic Qualified Code(s): I50.33 - Acute on chronic diastolic (congestive) heart failure (3) Elevated serum creatinine Code(s): R79.89 - OTHER SPECIFIED ABNORMAL FINDINGS OF BLOOD CHEMISTRY (4) Hepatic cirrhosis Code(s): K74.60 - UNSPECIFIED CIRRHOSIS OF LIVER Qualifiers: Hepatic cirrhosis type: unspecified hepatic cirrhosis Ascites presence : without ascites Qualified Code(s): K74.60 - Unspecified cirrhosis of liver (5) Rheumatic heart disease Code(s): I09.9 - RHEUMATIC HEART DISEASE, UNSPECIFIED (6) S/P AVR (aortic valve replacement) Code(s): Z95.2 - PRESENCE OF PROSTHETIC HEART VALVE (7) S/P MVR (mitral valve replacement) Code(s): Z95.2 - PRESENCE OF PROSTHETIC HEART VALVE (8) Shortness of breath Code(s): R06.02 - SHORTNESS OF BREATH Assessment/Plan (1) Anemia Code(s): D64.9 - ANEMIA, UNSPECIFIED Qualifiers: Anemia type: iron deficiency (2) CHF (congestive heart failure) Code(s): I50.9 - HEART FAILURE, UNSPECIFIED Qualifiers: Congestive heart failure type: diastolic Congestive heart failure chronicity: acute on chronic Qualified Code(s): I50.33 - Acute on chronic diastolic (congestive) heart failure (3) Elevated serum creatinine Code(s): R79.89 - OTHER SPECIFIED ABNORMAL FINDINGS OF BLOOD CHEMISTRY (4) Hepatic cirrhosis Code(s): K74.60 - UNSPECIFIED CIRRHOSIS OF LIVER Qualifiers: Hepatic cirrhosis type: unspecified hepatic cirrhosis Ascites presence : without ascites Qualified Code(s): K74.60 - Unspecified cirrhosis of liver (5) Rheumatic heart disease Code(s): I09.9 - RHEUMATIC HEART DISEASE, UNSPECIFIED (6) S/P AVR (aortic valve replacement) Code(s): Z95.2 - PRESENCE OF PROSTHETIC HEART VALVE (7) S/P MVR (mitral valve replacement) Code(s): Z95.2 - PRESENCE OF PROSTHETIC HEART VALVE (9) Shortness of breath Code(s): R06.02 - SHORTNESS OF BREATH Assessment/Plan DIURETICS STILL NO WEIGHT CHANGE DIETARY CONSULT FLUID RESTRICTION WILL NEED INTENSE CARDIAC REHAB CARDIO/PULM/RENAL F/U APPRECIATED INR -> Continue Coumadin as per INR 3.0-3.5 PASTOR BENDER
[2016-09-13] MEDS: METOLAZONE 2.5 MG TABLET (FP) PO SCH (13:29)
[2016-09-13] MEDS ORDERED: WARFARIN NA 1 MG TABLET (FP) ONE (17:17)
[2016-09-13] MEDS ORDERED: WARFARIN NA 2.5 MG TABLET (FP) ONE (17:17)
[2016-09-13] MEDS: WARFARIN NA 2.5 MG, WARFARIN NA 1 MG PO SCH (18:52)
[2016-09-13] MEDS: ALBUTEROL SO4 0.083% IH SOL 2.5 MG/3 ML VIAL.NEB. NEB PRN (21:20)
[2016-09-13] MEDS: ZOLPIDEM TARTRATE 5 MG TABLET PO SCH (22:02)
[2016-09-14] MEDS: FUROSEMIDE 40 MG/4 ML INJECTABLE VIAL IVPUSH SCH ×2 (06:37→14:14)
[2016-09-14 07:29] LABS: INR 2.4 (0.82-1.09); PROTHROMBIN TIME (PATIENT) 26.9 SEC (9.98-11.88)
[2016-09-14 08:22] LABS: BASOPHIL 1.1 % (0-2.0); EOSINOPHIL 6.6 % (0-4.5); MCH 28.9 pg (25.7-33.7); MCHC 32.6 g/dl (32.0-36.0); MEAN CELL VOLUME 88.5 fl (80-96); MEAN PLT VOLUME 8.9 fl (7.5-11.1); PLATELET COUNT 201 K/MM3 (134-434); RDW 15.8 % (11.6-15.6); WHITE BLOOD COUNT 4.4 K/mm3 (4.0-10.0)
[2016-09-14 08:35] LABS: ALBUMIN 3.3 g/dl (3.4-5.0); BILIRUBIN,TOTAL 0.8 mg/dL (0.2-1.0); CALCIUM 8.7 mg/dL (8.5-10.1); CREATININE 1.1 mg/dL (0.55-1.02); TOT PROT 6.6 g/dl (6.4-8.2)
[2016-09-14] MEDS ORDERED: PT OWN MED DRAWER 7, Y5N ONE ×4 (09:06→22:13)
[2016-09-14] MEDS: LOSARTAN POTASSIUM 50 MG TABLET (FP) PO SCH (09:09)
[2016-09-14] MEDS: SPIRONOLACTONE 25 MG TABLET (FP) PO SCH (09:09)
[2016-09-14] MEDS: OPTH OD SCH ×2 (09:10→21:57)
[2016-09-14] MEDS: FERROUS SO4 325 MG TABLET (FP) PO SCH ×2 (09:10→21:56)
[2016-09-14] MEDS: DUREZOL 0.05% OD SCH ×2 (09:10→21:57)
[2016-09-14] MEDS: BACITRACIN 30 GM TUBE TOPICAL OINTMENT TP SCH (09:11)
--- NOTE | 2016-09-14 10:10 | CONSULT ---
Consult Consult Specialty:: ENT Referred by:: Dr Dimas Reason for Consultation:: Nosebleed - History of Present Illness Chief Complaint: Recent left sided nosebleed History of Present Illness: 85 yo female with multiple medical issues, s/p cardiac valve replacements, on Coumadin who noted left sided nosebleeds a few days ago which have since resolved. Pt is on O2 treatment via NC which is humidified. She had her nose packed a few years ago. ENT ROS- hearing loss and voice change. - History Source History Provided By: Patient Limitations to Obtaining History: No Limitations - Past Medical History Cardio/Vascular: Yes: AFIB, Aortic Insufficiency, Mitral Insufficiency, Other ( Rheumatic heart disease) Gastrointestinal: Yes: GI Bleed, Peptic Ulcer Disease, Other (AV malformation) Hepatobiliary: Yes: Cirrhosis, Cholelithiasis ENT: Yes: Other (nosebleeds) - Past Surgical History Past Surgical History: Yes: Valve Replacement (Mechanical AVR, MVR, bioprosthetic TVR) - Alcohol/Substance Use Hx Alcohol Use: Yes (seldom) - Smoking History Smoking history: Former smoker Have you smoked in the past 12 months: No Aproximately how many cigarettes per day: 0 If you are a former smoker, when did you quit?: 2013 Home Medications - Allergies Allergies/Adverse Reactions: Allergies Allergy/AdvReac Type Severity Reaction Status Date / Time clindamycin Allergy Mild Verified 09/05/16 16:21 Penicillins Allergy Mild Verified 09/05/16 16:21 vancomycin Allergy Mild Verified 09/05/16 16:21 PLASTIC TAPE Allergy Rash Uncoded 09/05/16 16:21 - Home Medications Home Medications: Ambulatory Orders Ferrous Sulfate [Feosol] 325 mg PO BID 04/25/13 Furosemide [Lasix -] 40 mg PO DAILY 07/28/13 Calcium Citrate/Vitamin D3 [Calcitrate + Vit D Caplet] 1 each PO BID 09/05/16 Difluprednate [Durezol] 1 drop OP BID 09/05/16 Losartan Potassium [Cozaar -] 25 mg PO DAILY 09/05/16 Nepafenac [Ilevro] 1 drop OP DAILY 09/05/16 Non-Formulary 1 tab PO DAILY 09/05/16 Warfarin Sodium [Coumadin] 3 mg PO ASDIR 09/05/16 Family Disease History - Family Disease History Other Family History: History of HTN Review of Systems - Review of Systems HENT: reports: Epistaxis, Hearing Loss, Other (intermittent hoarseness) Physical Exam-ENT Vital Signs: Vital Signs Temperature 98.1 F 09/13/16 17:40 Pulse Rate 67 09/13/16 17:40 Respiratory Rate 22 09/13/16 17:40 Blood Pressure 123/84 09/13/16 17:40 O2 Sat by Pulse Oximetry (%) 95 09/13/16 21:00 Constitutional: Yes: No Distress, Calm Head: Yes: WNL Face: Yes: WNL Eyes: Yes: WNL Nose: Yes: Epistaxis, Septum Deviated, Other (dry anterior nasal mucosa with crusting, blood on the left, wearing O2 NC) Nasal Passage: Yes: Other (dry) Oral/Pharynx: Yes: Other (s/p tonsillectomy, no posterior blood) Ear Canal: Yes: WNL Tympanic Membrane: Yes: WNL Neck: Yes: WNL Neurological: Yes: Alert, Oriented, Cran Nerves II-XII Intact Problem List - Problems (1) Left-sided nosebleed Assessment/Plan: Pt with recent nosebleed since in the hospital using nasal O2 and on Coumadin. Area on the left cauterized with control. Continue humidification. Apply bacitracin to nostrils 3x/day. Pt to follow-up as an outpatient. Code(s): R04.0 - EPISTAXIS Procedure Note Procedure: Nasal cauterization- nose sprayed with topical decongestant/anesthetic. Small clot removed on the left, raw mucosa on the inferior septum cauterized with Silver nitrate with control. No further active bleeding noted.
--- NOTE | 2016-09-14 11:06 | PN ---
Progress Note (short form) - Note Progress Note: RENAL Pt is awake and alert son bybedside says she still is swollen. Not more dyspneic Last Vital Signs Temp Pulse Resp BP Pulse Ox 98.1 F 67 22 123/84 95 09/13/16 17:40 09/13/16 17:40 09/13/16 17:40 09/13/16 17:40 09/13/16 21:00 lungs has rhonchi bilaterally cvs s1s2 +margaret in two different areas. Also has diastolic component abd soft ext +edema neuro a+ox3 CBC, BMP 09/14/16 07:40 09/14/16 06:00 Current Medications Generic Name Dose Route Start Last Admin Trade Name Freq PRN Reason Stop Dose Admin Acetaminophen 650 mg 09/05/16 20:01 Tylenol - PO Q6H PRN FEVER OR PAIN Albuterol Sulfate 1 amp 09/13/16 14:36 09/13/16 21:20 Ventolin 0.083% Nebulizer Soln - NEB 1 amp Q4H PRN Administration SHORT OF BREATH/WHEEZING Artificial Tears 1 drop 09/05/16 20:04 Artificial Tears OD DAILY PRN DRY EYES Bacitracin 1 applic 09/10/16 22:00 09/14/16 09:11 Bacitracin - TP 1 applic BID [facility] Administration Bacitracin 1 applic 09/14/16 22:00 Bacitracin - TP BID [facility] Ferrous Sulfate 325 mg 09/05/16 22:00 09/14/16 09:10 Feosol - PO 325 mg BID [facility] Administration Furosemide 40 mg 09/06/16 14:00 09/14/16 06:37 Lasix Injection - IVPUSH 40 mg BID@0600,1400 [facility] Administration Losartan Potassium 25 mg 09/06/16 10:00 09/14/16 09:09 Cozaar - PO 25 mg DAILY [facility] Administration Metolazone 2.5 mg 09/11/16 13:30 09/13/16 13:29 Zaroxolyn - PO 2.5 mg DAILY@1330 [facility] Administration Durezol 0.05% Opth 1 each 09/07/16 22:00 09/14/16 09:10 Drops - Patient Own OD 1 each Med BID [facility] Administration Spironolactone 25 mg 09/09/16 10:15 09/14/16 09:09 Aldactone - PO 25 mg DAILY [facility] Administration Warfarin Sodium 2.5 mg/ 3.5 mg 09/12/16 18:00 09/13/16 18:52 Warfarin Sodium 1 mg PO 3.5 mg DAILY@1800 [facility] Administration Zolpidem Tartrate 5 mg 09/07/16 22:00 09/13/16 22:02 Ambien - PO 5 mg HS [facility] Administration Impression 1. RADHA 2. aortic valve replacement 3. mitral valve replacement 4. tricuspid valve replacement 5. CHF from valvular abnormalities 6. a-fib 7. anemia 8. hx GI bleed 9. HTN 10 mild hyponatremia Plan -continue diuresis -likely cardiorenal disease as pt has significant cardiac disease - would monitor weight as a way of deciding on diuresis. Agree with current regimen MV
[2016-09-14] MEDS: ALBUTEROL SO4 0.083% IH SOL 2.5 MG/3 ML VIAL.NEB. NEB PRN (11:10)
--- NOTE | 2016-09-14 11:12 | PN ---
Progress Note (short form) - Note Progress Note: PULMONARY Breathing slightly better today. Denies chest pain, cough or palpitations. Last Vital Signs Temp Pulse Resp BP Pulse Ox 98.1 F 67 22 123/84 95 09/13/16 17:40 09/13/16 17:40 09/13/16 17:40 09/13/16 17:40 09/13/16 21:00 Intake & Output 09/11/16 09/12/16 09/13/16 09/14/16 23:59 23:59 23:59 23:59 Intake Total 502 640 6453 Output Total 1850 1000 2700 900 Balance -1700 -700 -1460 -900 Weight 155 lb 2 oz 155 lb 5 oz 156 lb 3.2 oz 156 lb Gen: mildly tachypneic with speaking Heart: RRR Lung: bibasilar rales Abd: soft, nontender Ext: legs wrapped CBC, BMP 09/14/16 07:40 09/14/16 06:00 Active Medications Acetaminophen (Tylenol -) 650 mg PO Q6H PRN PRN Reason: FEVER OR PAIN Albuterol Sulfate (Ventolin 0.083% Nebulizer Soln -) 1 amp NEB Q4H PRN PRN Reason: SHORT OF BREATH/WHEEZING Last Admin: 09/13/16 21:20 Dose: 1 amp Artificial Tears (Artificial Tears) 1 drop OD DAILY PRN PRN Reason: DRY EYES Bacitracin (Bacitracin -) 1 applic TP BID [facility] Last Admin: 09/14/16 09:11 Dose: 1 applic Bacitracin (Bacitracin -) 1 applic TP BID [facility] Ferrous Sulfate (Feosol -) 325 mg PO BID [facility] Last Admin: 09/14/16 09:10 Dose: 325 mg Furosemide (Lasix Injection -) 40 mg IVPUSH BID@0600,1400 [facility] Last Admin: 09/14/16 06:37 Dose: 40 mg Losartan Potassium (Cozaar -) 25 mg PO DAILY [facility] Last Admin: 09/14/16 09:09 Dose: 25 mg Metolazone (Zaroxolyn -) 2.5 mg PO DAILY@1330 [facility] Last Admin: 09/13/16 13:29 Dose: 2.5 mg Durezol 0.05% Opth Drops - Patient Own Med 1 each OD BID [facility] Last Admin: 09/14/16 09:10 Dose: 1 each Spironolactone (Aldactone -) 25 mg PO DAILY [facility] Last Admin: 09/14/16 09:09 Dose: 25 mg Warfarin Sodium 2.5 mg/ (Warfarin Sodium 1 mg) 3.5 mg PO DAILY@1800 [facility] Last Admin: 09/13/16 18:52 Dose: 3.5 mg Zolpidem Tartrate (Ambien -) 5 mg PO HS [facility] Last Admin: 09/13/16 22:02 Dose: 5 mg A/P Acute on Chronic LV Diastolic Heart Failure Pulmonary HTN s/p AVR/MVR Atrial Fibrillation Liver Cirrhosis - continue lasix, aldactone, zaroxolyn - monitor urine output, creatinine - daily weights, I/Os - rate controlled - continue anticoagulation - O2 to keep SpO2 >90% - inhaled bronchodilators as needed
--- NOTE | 2016-09-14 11:40 | PN ---
Progress Note, Physician Chief Complaint: HAD D/W SON, FAMILY MEMBER & PATIENT FAMILY CONCERNED ABOUT AC WHILE HAVING AVMs - Current Medication List Current Medications: Active Medications Acetaminophen (Tylenol -) 650 mg PO Q6H PRN PRN Reason: FEVER OR PAIN Albuterol Sulfate (Ventolin 0.083% Nebulizer Soln -) 1 amp NEB Q4H PRN PRN Reason: SHORT OF BREATH/WHEEZING Last Admin: 09/14/16 11:10 Dose: 1 amp Artificial Tears (Artificial Tears) 1 drop OD DAILY PRN PRN Reason: DRY EYES Bacitracin (Bacitracin -) 1 applic TP BID [facility] Last Admin: 09/14/16 09:11 Dose: 1 applic Bacitracin (Bacitracin -) 1 applic TP BID [facility] Ferrous Sulfate (Feosol -) 325 mg PO BID [facility] Last Admin: 09/14/16 09:10 Dose: 325 mg Furosemide (Lasix Injection -) 40 mg IVPUSH BID@0600,1400 [facility] Last Admin: 09/14/16 06:37 Dose: 40 mg Losartan Potassium (Cozaar -) 25 mg PO DAILY [facility] Last Admin: 09/14/16 09:09 Dose: 25 mg Metolazone (Zaroxolyn -) 2.5 mg PO DAILY@1330 [facility] Last Admin: 09/13/16 13:29 Dose: 2.5 mg Durezol 0.05% Opth Drops - Patient Own Med 1 each OD BID [facility] Last Admin: 09/14/16 09:10 Dose: 1 each Spironolactone (Aldactone -) 25 mg PO DAILY [facility] Last Admin: 09/14/16 09:09 Dose: 25 mg Warfarin Sodium 2.5 mg/ (Warfarin Sodium 1 mg) 3.5 mg PO DAILY@1800 [facility] Last Admin: 09/13/16 18:52 Dose: 3.5 mg Zolpidem Tartrate (Ambien -) 5 mg PO HS [facility] Last Admin: 09/13/16 22:02 Dose: 5 mg - Objective Vital Signs: Vital Signs Temperature 98.1 F 09/13/16 17:40 Pulse Rate 67 09/13/16 17:40 Respiratory Rate 22 09/13/16 17:40 Blood Pressure 123/84 09/13/16 17:40 O2 Sat by Pulse Oximetry (%) 95 09/13/16 21:00 Cardiovascular: Yes: Regular Rate and Rhythm, S1, S2 Respiratory: Yes: CTA Bilaterally Gastrointestinal: Yes: Normal Bowel Sounds, Soft Edema: Yes Labs: CBC, BMP 09/14/16 07:40 09/14/16 06:00 INR, PTT INR 2.40 (0.82-1.09) H 09/14/16 06:00 Problem List - Problems (1) Anemia Code(s): D64.9 - ANEMIA, UNSPECIFIED Qualifiers: Anemia type: iron deficiency (2) CHF (congestive heart failure) Code(s): I50.9 - HEART FAILURE, UNSPECIFIED Qualifiers: Congestive heart failure type: diastolic Congestive heart failure chronicity: acute on chronic Qualified Code(s): I50.33 - Acute on chronic diastolic (congestive) heart failure (3) Elevated serum creatinine Code(s): R79.89 - OTHER SPECIFIED ABNORMAL FINDINGS OF BLOOD CHEMISTRY (4) Hepatic cirrhosis Code(s): K74.60 - UNSPECIFIED CIRRHOSIS OF LIVER Qualifiers: Hepatic cirrhosis type: unspecified hepatic cirrhosis Ascites presence : without ascites Qualified Code(s): K74.60 - Unspecified cirrhosis of liver (5) Rheumatic heart disease Code(s): I09.9 - RHEUMATIC HEART DISEASE, UNSPECIFIED (6) S/P AVR (aortic valve replacement) Code(s): Z95.2 - PRESENCE OF PROSTHETIC HEART VALVE (7) S/P MVR (mitral valve replacement) Code(s): Z95.2 - PRESENCE OF PROSTHETIC HEART VALVE (8) Shortness of breath Code(s): R06.02 - SHORTNESS OF BREATH Assessment/Plan (1) Anemia Code(s): D64.9 - ANEMIA, UNSPECIFIED Qualifiers: Anemia type: iron deficiency (2) CHF (congestive heart failure) Code(s): I50.9 - HEART FAILURE, UNSPECIFIED Qualifiers: Congestive heart failure type: diastolic Congestive heart failure chronicity: acute on chronic Qualified Code(s): I50.33 - Acute on chronic diastolic (congestive) heart failure (3) Elevated serum creatinine Code(s): R79.89 - OTHER SPECIFIED ABNORMAL FINDINGS OF BLOOD CHEMISTRY (4) Hepatic cirrhosis Code(s): K74.60 - UNSPECIFIED CIRRHOSIS OF LIVER Qualifiers: Hepatic cirrhosis type: unspecified hepatic cirrhosis Ascites presence : without ascites Qualified Code(s): K74.60 - Unspecified cirrhosis of liver (5) Rheumatic heart disease Code(s): I09.9 - RHEUMATIC HEART DISEASE, UNSPECIFIED (6) S/P AVR (aortic valve replacement) Code(s): Z95.2 - PRESENCE OF PROSTHETIC HEART VALVE (7) S/P MVR (mitral valve replacement) Code(s): Z95.2 - PRESENCE OF PROSTHETIC HEART VALVE (9) Shortness of breath Code(s): R06.02 - SHORTNESS OF BREATH Assessment/Plan DIURETICS STILL NO WEIGHT CHANGE DIETARY CONSULT FLUID RESTRICTION WILL NEED INTENSE CARDIAC REHAB CARDIO/PULM/RENAL F/U APPRECIATED INR -> Continue Coumadin as per INR 3.0-3.5 (FAMILY RESISTANT TO INCing WARFARIN ) ENT SAW PATIENT -> S/P CAUTERIZATION 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
--- NOTE | 2016-09-14 13:56 | PN ---
Progress Note, Physician History of Present Illness: Continued dyspnea, LE edema slowly improving. Left epistaxis s/p cautery. - Current Medication List Current Medications: Active Medications Acetaminophen (Tylenol -) 650 mg PO Q6H PRN PRN Reason: FEVER OR PAIN Albuterol Sulfate (Ventolin 0.083% Nebulizer Soln -) 1 amp NEB Q4H PRN PRN Reason: SHORT OF BREATH/WHEEZING Last Admin: 09/14/16 11:10 Dose: 1 amp Artificial Tears (Artificial Tears) 1 drop OD DAILY PRN PRN Reason: DRY EYES Bacitracin (Bacitracin -) 1 applic TP BID [facility] Last Admin: 09/14/16 09:11 Dose: 1 applic Bacitracin (Bacitracin -) 1 applic TP BID [facility] Ferrous Sulfate (Feosol -) 325 mg PO BID [facility] Last Admin: 09/14/16 09:10 Dose: 325 mg Furosemide (Lasix Injection -) 40 mg IVPUSH BID@0600,1400 [facility] Last Admin: 09/14/16 06:37 Dose: 40 mg Losartan Potassium (Cozaar -) 25 mg PO DAILY [facility] Last Admin: 09/14/16 09:09 Dose: 25 mg Metolazone (Zaroxolyn -) 2.5 mg PO DAILY@1330 [facility] Last Admin: 09/13/16 13:29 Dose: 2.5 mg Durezol 0.05% Opth Drops - Patient Own Med 1 each OD BID [facility] Last Admin: 09/14/16 09:10 Dose: 1 each Spironolactone (Aldactone -) 25 mg PO DAILY [facility] Last Admin: 09/14/16 09:09 Dose: 25 mg Warfarin Sodium 2.5 mg/ (Warfarin Sodium 1 mg) 3.5 mg PO DAILY@1800 [facility] Last Admin: 09/13/16 18:52 Dose: 3.5 mg Zolpidem Tartrate (Ambien -) 5 mg PO HS [facility] Last Admin: 09/13/16 22:02 Dose: 5 mg - Objective Vital Signs: Vital Signs Temperature 97.8 F 09/14/16 08:30 Pulse Rate 74 09/14/16 08:30 Respiratory Rate 16 09/14/16 08:30 Blood Pressure 132/56 09/14/16 08:30 O2 Sat by Pulse Oximetry (%) 98 09/14/16 09:00 Constitutional: Yes: No Distress, Calm Neck: Yes: Supple Cardiovascular: Yes: Pulse Irregular, Other ([place] mechanical valve sounds) Respiratory: Yes: Regular, Diminished, On Nasal O2 Gastrointestinal: Yes: Normal Bowel Sounds, Soft Edema: Yes Edema: LLE: 1+, RLE: 1+ Labs: CBC, BMP 09/14/16 07:40 09/14/16 06:00 INR, PTT INR 2.40 (0.82-1.09) H 09/14/16 06:00 - ....Imaging Chest X-ray: Report Reviewed (Unchanges from previous) Problem List - Problems (1) RADHA (acute kidney injury) Code(s): N17.9 - ACUTE KIDNEY FAILURE, UNSPECIFIED (2) CHF (congestive heart failure) Code(s): I50.9 - HEART FAILURE, UNSPECIFIED Qualifiers: Qualified Code(s): I50.33 - Acute on chronic diastolic (congestive) heart failure (3) Rheumatic heart disease Code(s): I09.9 - RHEUMATIC HEART DISEASE, UNSPECIFIED (4) S/P AVR (aortic valve replacement) Code(s): Z95.2 - PRESENCE OF PROSTHETIC HEART VALVE (5) S/P MVR (mitral valve replacement) Code(s): Z95.2 - PRESENCE OF PROSTHETIC HEART VALVE (7) Shortness of breath Code(s): R06.02 - SHORTNESS OF BREATH (8) Permanent atrial fibrillation Code(s): I48.2 - CHRONIC ATRIAL FIBRILLATION (9) Pulmonary hypertension Code(s): I27.2 - OTHER SECONDARY PULMONARY HYPERTENSION (10) Venous stasis dermatitis of both lower extremities Code(s): I83.11 - VARICOSE VEINS OF RIGHT LOWER EXTREMITY WITH INFLAMMATION I83.12 - VARICOSE VEINS OF LEFT LOWER EXTREMITY WITH INFLAMMATION Assessment/Plan 09/09/2016 Echo: Normal LV size and fxn with mild cLVH, severe DELBERT, mech AVR, MVR , bio TVR, mod TR, RVSP>60 mmHg, mild NC 1. Clinical presentation c/w acute on chronic LV diastolic failure with NYHA II- III classification heart failure 2. Post MVR and AVR (mechanical prosthesis) with history of rheumatic heart disease 3. Post TVR (bioprosthesis) with moderate tricuspid regurgitation and severe pulmonary hypertension 4. Permanent atrial fibrillation 5. Anemia 6. History of hepatic cirrhosis and cholelithiasis 7. Hyponatremia 8. Left epistaxis s/p cautery PLAN: 1. Continue Lasix IV 40 mg BID with extra dose in afternoon, Spironolactone 25 qd and Zaroxolyn 2.5 qd with monitor diuretic response, renal function and electrolytes. 2. Continue Coumadin as per INR 3.0-3.5 3. Continue Cozaar 25 qd. Currently not on beta yuly and held due to history of bradycardia 4. Monitor CBC (H/H) and sodium level 5. Wrap legs, BD, O2 to maintain saO2
[2016-09-14] MEDS: METOLAZONE 2.5 MG TABLET (FP) PO SCH (14:14)
--- NOTE | 2016-09-14 15:56 | CONSULT ---
Consult Consult Specialty:: GI Referred by:: Dr. Cheor: Dr. Swartz covering for Dr. Rojo Reason for Consultation:: "bleeding from AVM's in the past" - History of Present Illness Chief Complaint: "I had bleeding because my coumadin was too high in the past" History of Present Illness: 85F admitted 09/05/16 for weakness/SOB. She has been evaluated by pulm,cardio, renal,vascular surgery and ENT for nose bleed. 9 days into admission concern arose because she needs to be on coumadin and has a history of GI bleeding in the past. She believes that she had a work-up at [facility] with Dr. Rojo. I could not find any procedure reports from [facility] in the endo system. She then said that it was in [facility] and describes what sounds like a colonoscopy and ? push enteroscopy. There is also a history of cirrhosis in the chart. It is unclear if she undergoes HCC screening. She denies any abdominal pain. There was no reported rectal bleeding or melena. A stool specimen sent to the lab was guaiac negative. - Past Medical History Cardio/Vascular: Yes: AFIB, Aortic Insufficiency, Mitral Insufficiency, Other ( Rheumatic heart disease) Gastrointestinal: Yes: GI Bleed, Peptic Ulcer Disease, Other (AV malformation) Hepatobiliary: Yes: Cirrhosis, Cholelithiasis ENT: Yes: Other (nosebleeds) - Past Surgical History Past Surgical History: Yes: Valve Replacement (Mechanical AVR, MVR, bioprosthetic TVR) - Alcohol/Substance Use Hx Alcohol Use: Yes (seldom) - Smoking History Smoking history: Former smoker Have you smoked in the past 12 months: No Aproximately how many cigarettes per day: 0 If you are a former smoker, when did you quit?: 2013 - Social History Usual Living Arrangement: Assisted Living ADL: Support Services Place of : [facility] History of Recent Travel: No Home Medications - Allergies Allergies/Adverse Reactions: Allergies Allergy/AdvReac Type Severity Reaction Status Date / Time clindamycin Allergy Mild Verified 09/05/16 16:21 Penicillins Allergy Mild Verified 09/05/16 16:21 vancomycin Allergy Mild Verified 09/05/16 16:21 PLASTIC TAPE Allergy Rash Uncoded 09/05/16 16:21 - Home Medications Home Medications: Ambulatory Orders Ferrous Sulfate [Feosol] 325 mg PO BID 04/25/13 Furosemide [Lasix -] 40 mg PO DAILY 07/28/13 Calcium Citrate/Vitamin D3 [Calcitrate + Vit D Caplet] 1 each PO BID 09/05/16 Difluprednate [Durezol] 1 drop OP BID 09/05/16 Losartan Potassium [Cozaar -] 25 mg PO DAILY 09/05/16 Nepafenac [Ilevro] 1 drop OP DAILY 09/05/16 Non-Formulary 1 tab PO DAILY 09/05/16 Warfarin Sodium [Coumadin] 3 mg PO ASDIR 09/05/16 Family Disease History - Family Disease History Other Family History: History of HTN Review of Systems - Review of Systems HENT: reports: Epistaxis Cardiovascular: reports: Shortness of Breath, Other (LE swelling). denies: Chest Pain Respiratory: reports: SOB. denies: Cough Gastrointestinal: denies: Abdominal Pain, Constipation, Diarrhea, Dysphagia, Melena, Nausea, Rectal Bleeding, Vomiting Physical Exam-GI Vital Signs: Vital Signs Temperature 98.5 F 09/14/16 15:25 Pulse Rate 86 09/14/16 15:25 Respiratory Rate 20 09/14/16 15:25 Blood Pressure 132/56 09/14/16 08:30 O2 Sat by Pulse Oximetry (%) 98 09/14/16 09:00 Constitutional: Yes: Calm Eyes: No: Sclera Icterus Cardiovascular: Yes: Regular Rate and Rhythm, Murmur, Other (mechanical heart sounds present) Respiratory: Yes: Diminished (at bases b/l, poor insp. effort), Tachypnea Gastrointestinal Inspection: No: Distention ...Auscultate: Yes: Normoactive Bowel Sounds ...Palpate: Yes: Hepatomegaly (prominent edge of the liver). No: Tenderness ...Percussion: No: Tympanitic ...Rectal Exam: Yes: Guaiac Positive (brown stool) Edema: Yes Edema: LLE: 2+, RLE: 2+ Neurological: Yes: Alert, Oriented Labs: CBC, BMP 09/14/16 07:40 09/14/16 06:00 INR, PTT INR 2.40 (0.82-1.09) H 09/14/16 06:00 Problem List - Problems (1) Anemia Assessment/Plan: With history of GI bleeding in the past of unclear etiology by the chart Guaiac + on exam today. Dr. Rojo will resume coverage tomorrow to review the old records to assess the timing of previous GI work-ups and address the finding of guaiac + stool on today's exam. She should be on GI prophylaxis while on continued A/C that is compatible with her A/C Code(s): D64.9 - ANEMIA, UNSPECIFIED Qualifiers: Anemia type: iron deficiency (2) Enlarged liver Assessment/Plan: Prominent and indurated edge of her liver on exam: History of cirrhosis in the chart Ordered abdominal US and AFP tumor marker Code(s): R16.0 - HEPATOMEGALY, NOT ELSEWHERE CLASSIFIED
[2016-09-14] MEDS ORDERED: WARFARIN NA 1 MG TABLET (FP) ONE (17:27)
[2016-09-14] MEDS ORDERED: WARFARIN NA 2.5 MG TABLET (FP) ONE (17:27)
[2016-09-14] MEDS: WARFARIN NA 2.5 MG, WARFARIN NA 1 MG PO SCH (17:33)
[2016-09-14] MEDS ORDERED: FUROSEMIDE 40 MG/4 ML INJECTABLE VIAL IVPB ONE (18:00)
[2016-09-14] MEDS: ZOLPIDEM TARTRATE 5 MG TABLET PO SCH (21:56)
[2016-09-15] MEDS: BACITRACIN 30 GM TUBE TOPICAL OINTMENT TP SCH ×6 (00:45→21:24)
[2016-09-15] MEDS ORDERED: PT OWN MED DRAWER 7, Y5N ONE ×3 (05:39→11:04)
[2016-09-15] MEDS: FUROSEMIDE 40 MG/4 ML INJECTABLE VIAL IVPUSH SCH ×2 (06:22→15:31)
[2016-09-15 08:14] LABS: BASOPHIL 0.8 % (0-2.0); EOSINOPHIL 4.9 % (0-4.5); MCH 28.8 pg (25.7-33.7); MCHC 32.2 g/dl (32.0-36.0); MEAN CELL VOLUME 89.7 fl (80-96); MEAN PLT VOLUME 9.1 fl (7.5-11.1); NEUTROPHILS 65.5 % (42.8-82.8); PLATELET COUNT 196 K/MM3 (134-434); RDW 16.2 % (11.6-15.6)
[2016-09-15 08:59] LABS: ALBUMIN 3.6 g/dl (3.4-5.0); BILIRUBIN,TOTAL 1.2 mg/dL (0.2-1.0); CALCIUM 9.3 mg/dL (8.5-10.1); CREATININE 1.1 mg/dL (0.55-1.02); TOT PROT 7.1 g/dl (6.4-8.2)
[2016-09-15 09:09] LABS: INR 2.81 (0.82-1.09); PROTHROMBIN TIME (PATIENT) 31.6 SEC (9.98-11.88)
--- NOTE | 2016-09-15 10:46 | PN ---
Progress Note (short form) - Note Progress Note: PULMONARY Breathing slowly improving. Diuresing well. Denies chest pain, cough or palpitations. Last Vital Signs Temp Pulse Resp BP Pulse Ox 97.6 F 66 20 126/46 97 09/15/16 06:14 09/15/16 06:14 09/15/16 06:14 09/15/16 06:14 09/14/16 22:00 Intake & Output 09/12/16 09/13/16 09/14/16 09/15/16 23:59 23:59 23:59 23:59 Intake Total 300 1240 800 Output Total 1000 2700 3100 200 Balance -700 -1460 -2300 -200 Weight 155 lb 5 oz 156 lb 3.2 oz 156 lb 152 lb 8 oz Gen: mildly tachypneic with speaking Heart: RRR Lung: bibasilar rales Abd: soft, nontender Ext: + edema CBC, BMP 09/15/16 06:30 09/15/16 06:30 Active Medications Acetaminophen (Tylenol -) 650 mg PO Q6H PRN PRN Reason: FEVER OR PAIN Albuterol Sulfate (Ventolin 0.083% Nebulizer Soln -) 1 amp NEB Q4H PRN PRN Reason: SHORT OF BREATH/WHEEZING Last Admin: 09/14/16 11:10 Dose: 1 amp Artificial Tears (Artificial Tears) 1 drop OD DAILY PRN PRN Reason: DRY EYES Bacitracin (Bacitracin -) 1 applic TP BID [facility] Last Admin: 09/15/16 00:45 Dose: Not Given Bacitracin (Bacitracin -) 1 applic TP BID [facility] Last Admin: 09/15/16 00:56 Dose: 1 applic Ferrous Sulfate (Feosol -) 325 mg PO BID [facility] Last Admin: 09/14/16 21:56 Dose: 325 mg Furosemide (Lasix Injection -) 40 mg IVPUSH BID@0600,1400 [facility] Last Admin: 09/15/16 06:22 Dose: 40 mg Losartan Potassium (Cozaar -) 25 mg PO DAILY [facility] Last Admin: 09/14/16 09:09 Dose: 25 mg Metolazone (Zaroxolyn -) 2.5 mg PO DAILY@1330 [facility] Last Admin: 09/14/16 14:14 Dose: 2.5 mg Durezol 0.05% Opth Drops - Patient Own Med 1 each OD BID [facility] Last Admin: 09/14/16 21:57 Dose: 1 each Spironolactone (Aldactone -) 25 mg PO DAILY [facility] Last Admin: 09/14/16 09:09 Dose: 25 mg Warfarin Sodium 2.5 mg/ (Warfarin Sodium 1 mg) 3.5 mg PO DAILY@1800 [facility] Last Admin: 09/14/16 17:33 Dose: 3.5 mg A/P Acute on Chronic LV Diastolic Heart Failure Pulmonary HTN s/p AVR/MVR Atrial Fibrillation Liver Cirrhosis - continue lasix, aldactone, zaroxolyn - monitor urine output, creatinine - daily weights, I/Os - rate controlled - continue anticoagulation - O2 to keep SpO2 >90% - inhaled bronchodilators as needed
[2016-09-15] MEDS: SPIRONOLACTONE 25 MG TABLET (FP) PO SCH (10:59)
[2016-09-15] MEDS: FERROUS SO4 325 MG TABLET (FP) PO SCH ×2 (10:59→21:23)
[2016-09-15] MEDS: LOSARTAN POTASSIUM 50 MG TABLET (FP) PO SCH (10:59)
--- NOTE | 2016-09-15 10:59 | PN ---
Progress Note, Physician Chief Complaint: ON O2 MASK - Current Medication List Current Medications: Active Medications Acetaminophen (Tylenol -) 650 mg PO Q6H PRN PRN Reason: FEVER OR PAIN Albuterol Sulfate (Ventolin 0.083% Nebulizer Soln -) 1 amp NEB Q4H PRN PRN Reason: SHORT OF BREATH/WHEEZING Last Admin: 09/14/16 11:10 Dose: 1 amp Artificial Tears (Artificial Tears) 1 drop OD DAILY PRN PRN Reason: DRY EYES Bacitracin (Bacitracin -) 1 applic TP BID [facility] Last Admin: 09/15/16 00:45 Dose: Not Given Bacitracin (Bacitracin -) 1 applic TP BID [facility] Last Admin: 09/15/16 00:56 Dose: 1 applic Ferrous Sulfate (Feosol -) 325 mg PO BID [facility] Last Admin: 09/14/16 21:56 Dose: 325 mg Furosemide (Lasix Injection -) 40 mg IVPUSH BID@0600,1400 [facility] Last Admin: 09/15/16 06:22 Dose: 40 mg Losartan Potassium (Cozaar -) 25 mg PO DAILY [facility] Last Admin: 09/14/16 09:09 Dose: 25 mg Metolazone (Zaroxolyn -) 2.5 mg PO DAILY@1330 [facility] Last Admin: 09/14/16 14:14 Dose: 2.5 mg Durezol 0.05% Opth Drops - Patient Own Med 1 each OD BID [facility] Last Admin: 09/14/16 21:57 Dose: 1 each Spironolactone (Aldactone -) 25 mg PO DAILY [facility] Last Admin: 09/14/16 09:09 Dose: 25 mg Warfarin Sodium 2.5 mg/ (Warfarin Sodium 1 mg) 3.5 mg PO DAILY@1800 [facility] Last Admin: 09/14/16 17:33 Dose: 3.5 mg - Objective Vital Signs: Vital Signs Temperature 97.6 F 09/15/16 06:14 Pulse Rate 66 09/15/16 06:14 Respiratory Rate 20 09/15/16 06:14 Blood Pressure 126/46 09/15/16 06:14 O2 Sat by Pulse Oximetry (%) 97 09/14/16 22:00 Constitutional: Yes: Calm Cardiovascular: Yes: Regular Rate and Rhythm, S1, S2 Respiratory: Yes: Wheezes Gastrointestinal: Yes: Normal Bowel Sounds, Soft Edema: Yes (IMPROVED) Labs: CBC, BMP 09/15/16 06:30 09/15/16 06:30 INR, PTT INR 2.81 (0.82-1.09) H 09/15/16 06:30 Problem List - Problems (1) Anemia Code(s): D64.9 - ANEMIA, UNSPECIFIED Qualifiers: Anemia type: iron deficiency (2) CHF (congestive heart failure) Code(s): I50.9 - HEART FAILURE, UNSPECIFIED Qualifiers: Congestive heart failure type: diastolic Congestive heart failure chronicity: acute on chronic Qualified Code(s): I50.33 - Acute on chronic diastolic (congestive) heart failure (3) Elevated serum creatinine Code(s): R79.89 - OTHER SPECIFIED ABNORMAL FINDINGS OF BLOOD CHEMISTRY (4) Hepatic cirrhosis Code(s): K74.60 - UNSPECIFIED CIRRHOSIS OF LIVER Qualifiers: Hepatic cirrhosis type: unspecified hepatic cirrhosis Ascites presence : without ascites Qualified Code(s): K74.60 - Unspecified cirrhosis of liver (5) Rheumatic heart disease Code(s): I09.9 - RHEUMATIC HEART DISEASE, UNSPECIFIED (6) S/P AVR (aortic valve replacement) Code(s): Z95.2 - PRESENCE OF PROSTHETIC HEART VALVE (7) S/P MVR (mitral valve replacement) Code(s): Z95.2 - PRESENCE OF PROSTHETIC HEART VALVE (8) Shortness of breath Code(s): R06.02 - SHORTNESS OF BREATH Assessment/Plan (1) Anemia Code(s): D64.9 - ANEMIA, UNSPECIFIED Qualifiers: Anemia type: iron deficiency (2) CHF (congestive heart failure) Code(s): I50.9 - HEART FAILURE, UNSPECIFIED Qualifiers: Congestive heart failure type: diastolic Congestive heart failure chronicity: acute on chronic Qualified Code(s): I50.33 - Acute on chronic diastolic (congestive) heart failure (3) Elevated serum creatinine Code(s): R79.89 - OTHER SPECIFIED ABNORMAL FINDINGS OF BLOOD CHEMISTRY (4) Hepatic cirrhosis Code(s): K74.60 - UNSPECIFIED CIRRHOSIS OF LIVER Qualifiers: Hepatic cirrhosis type: unspecified hepatic cirrhosis Ascites presence : without ascites Qualified Code(s): K74.60 - Unspecified cirrhosis of liver (5) Rheumatic heart disease Code(s): I09.9 - RHEUMATIC HEART DISEASE, UNSPECIFIED (6) S/P AVR (aortic valve replacement) Code(s): Z95.2 - PRESENCE OF PROSTHETIC HEART VALVE (7) S/P MVR (mitral valve replacement) Code(s): Z95.2 - PRESENCE OF PROSTHETIC HEART VALVE (9) Shortness of breath Code(s): R06.02 - SHORTNESS OF BREATH Assessment/Plan DIURETICS DIETARY CONSULT FLUID RESTRICTION WILL NEED INTENSE CARDIAC REHAB CARDIO/PULM/RENAL F/U APPRECIATED INR 2.8 -> Continue Coumadin as per INR 3.0-3.5 (FAMILY RESISTANT TO INCing WARFARIN. 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
[2016-09-15] MEDS: DUREZOL 0.05% OD SCH ×2 (11:05→21:24)
[2016-09-15] MEDS: OPTH OD SCH ×4 (11:05→21:29)
--- NOTE | 2016-09-15 13:23 | PN ---
Progress Note, Physician History of Present Illness: Dyspnea, LE edema, ascites slowly improving with diuresis. 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 - Current Medication List Current Medications: Active Medications Acetaminophen (Tylenol -) 650 mg PO Q6H PRN PRN Reason: FEVER OR PAIN Albuterol Sulfate (Ventolin 0.083% Nebulizer Soln -) 1 amp NEB Q4H PRN PRN Reason: SHORT OF BREATH/WHEEZING Last Admin: 09/14/16 11:10 Dose: 1 amp Artificial Tears (Artificial Tears) 1 drop OD DAILY PRN PRN Reason: DRY EYES Bacitracin (Bacitracin -) 1 applic TP BID [facility] Last Admin: 09/15/16 11:06 Dose: Not Given Bacitracin (Bacitracin -) 1 applic TP BID [facility] Last Admin: 09/15/16 11:00 Dose: 1 applic Ferrous Sulfate (Feosol -) 325 mg PO BID [facility] Last Admin: 09/15/16 10:59 Dose: 325 mg Furosemide (Lasix Injection -) 40 mg IVPUSH BID@0600,1400 [facility] Last Admin: 09/15/16 06:22 Dose: 40 mg Losartan Potassium (Cozaar -) 25 mg PO DAILY [facility] Last Admin: 09/15/16 10:59 Dose: 25 mg Metolazone (Zaroxolyn -) 2.5 mg PO DAILY@1330 [facility] Last Admin: 09/14/16 14:14 Dose: 2.5 mg Durezol 0.05% Opth Drops - Patient Own Med 1 each OD BID [facility] Last Admin: 09/15/16 11:05 Dose: 1 each Spironolactone (Aldactone -) 25 mg PO DAILY [facility] Last Admin: 09/15/16 10:59 Dose: 25 mg Warfarin Sodium 2.5 mg/ (Warfarin Sodium 1 mg) 3.5 mg PO DAILY@1800 [facility] Last Admin: 09/14/16 17:33 Dose: 3.5 mg - Objective Vital Signs: Vital Signs Temperature 97.6 F 09/15/16 06:14 Pulse Rate 66 09/15/16 06:14 Respiratory Rate 20 09/15/16 06:14 Blood Pressure 126/46 09/15/16 06:14 O2 Sat by Pulse Oximetry (%) 97 09/14/16 22:00 Constitutional: Yes: No Distress, Calm Neck: Yes: Supple Cardiovascular: Yes: Pulse Irregular, Murmur (2/6), S1, S2, Other ([place] mechanical valve sounds) Respiratory: Yes: Regular, Diminished, On Nasal O2 Gastrointestinal: Yes: Normal Bowel Sounds, Soft, Distention Edema: Yes Edema: LLE: 1+, RLE: 1+ Integumentary: Yes: Venous Stasis Changes Labs: CBC, BMP 09/15/16 06:30 09/15/16 06:30 INR, PTT INR 2.81 (0.82-1.09) H 09/15/16 06:30 Problem List - Problems (1) CHF (congestive heart failure) Code(s): I50.9 - HEART FAILURE, UNSPECIFIED Qualifiers: Congestive heart failure type: diastolic Congestive heart failure chronicity: acute on chronic Qualified Code(s): I50.33 - Acute on chronic diastolic (congestive) heart failure (2) Rheumatic heart disease Code(s): I09.9 - RHEUMATIC HEART DISEASE, UNSPECIFIED (3) S/P AVR (aortic valve replacement) Code(s): Z95.2 - PRESENCE OF PROSTHETIC HEART VALVE (4) S/P MVR (mitral valve replacement) Code(s): Z95.2 - PRESENCE OF PROSTHETIC HEART VALVE (6) Shortness of breath Code(s): R06.02 - SHORTNESS OF BREATH (7) Permanent atrial fibrillation Code(s): I48.2 - CHRONIC ATRIAL FIBRILLATION (8) Pulmonary hypertension Code(s): I27.2 - OTHER SECONDARY PULMONARY HYPERTENSION (9) Venous stasis dermatitis of both lower extremities Code(s): I83.11 - VARICOSE VEINS OF RIGHT LOWER EXTREMITY WITH INFLAMMATION I83.12 - VARICOSE VEINS OF LEFT LOWER EXTREMITY WITH INFLAMMATION (10) Cholelithiasis Code(s): K80.20 - CALCULUS OF GALLBLADDER W/O CHOLECYSTITIS W/O OBSTRUCTION Qualifiers: Cholelithiasis location: gallbladder Cholecystitis presence: without cholecystitis Biliary obstruction: without biliary obstruction Qualified Code(s): K80.20 - Calculus of gallbladder without cholecystitis without obstruction (11) Hepatic cirrhosis Code(s): K74.60 - UNSPECIFIED CIRRHOSIS OF LIVER Qualifiers: Hepatic cirrhosis type: unspecified hepatic cirrhosis Ascites presence : without ascites Qualified Code(s): K74.60 - Unspecified cirrhosis of liver Assessment/Plan 09/09/2016 Echo: Normal LV size and fxn with mild cLVH, severe DELBERT, mech AVR, MVR , bio TVR, mod TR, RVSP>60 mmHg, mild GA 09/14/2016 Abd U/S: Ascites, cirrhosis, cholelithiasis, 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 Clinical presentation c/w acute on chronic LV diastolic failure with NYHA II- III classification heart failure 2. Post MVR and AVR (mechanical prosthesis) with history of rheumatic heart disease 3. Post TVR (bioprosthesis) with moderate tricuspid regurgitation and severe pulmonary hypertension 4. Permanent atrial fibrillation 5. Anemia 6. 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 Hyponatremia 8. Left epistaxis s/p cautery PLAN: 1. Continue Lasix IV 40 mg BID with extra dose in afternoon, Spironolactone 25 qd and Zaroxolyn 2.5 qd with monitor diuretic response, renal function and electrolytes. 2. Continue Coumadin as per INR 3.0-3.5 3. Continue Cozaar 25 qd. Currently not on beta yuly and held due to history of bradycardia 4. GI f/u for liver mass 5. Wrap legs, BD, O2 to maintain saO2
[2016-09-15] MEDS: METOLAZONE 2.5 MG TABLET (FP) PO SCH (14:35)
--- NOTE | 2016-09-15 16:31 | PN ---
Progress Note, Physician History of Present Illness: Pt seen and examined at bedside. She still has shortness of breath the edema is slowly improving. - Current Medication List Current Medications: Active Medications Acetaminophen (Tylenol -) 650 mg PO Q6H PRN PRN Reason: FEVER OR PAIN Albuterol Sulfate (Ventolin 0.083% Nebulizer Soln -) 1 amp NEB Q4H PRN PRN Reason: SHORT OF BREATH/WHEEZING Last Admin: 09/14/16 11:10 Dose: 1 amp Artificial Tears (Artificial Tears) 1 drop OD DAILY PRN PRN Reason: DRY EYES Bacitracin (Bacitracin -) 1 applic TP BID [facility] Last Admin: 09/15/16 11:06 Dose: Not Given Bacitracin (Bacitracin -) 1 applic TP BID [facility] Last Admin: 09/15/16 11:00 Dose: 1 applic Ferrous Sulfate (Feosol -) 325 mg PO BID [facility] Last Admin: 09/15/16 10:59 Dose: 325 mg Furosemide (Lasix Injection -) 40 mg IVPUSH BID@0600,1400 [facility] Last Admin: 09/15/16 15:31 Dose: 40 mg Losartan Potassium (Cozaar -) 25 mg PO DAILY [facility] Last Admin: 09/15/16 10:59 Dose: 25 mg Metolazone (Zaroxolyn -) 2.5 mg PO DAILY@1330 [facility] Last Admin: 09/15/16 14:35 Dose: 2.5 mg Durezol 0.05% Opth Drops - Patient Own Med 1 each OD BID [facility] Last Admin: 09/15/16 11:05 Dose: 1 each Spironolactone (Aldactone -) 25 mg PO DAILY [facility] Last Admin: 09/15/16 10:59 Dose: 25 mg Warfarin Sodium 2.5 mg/ (Warfarin Sodium 1 mg) 3.5 mg PO DAILY@1800 [facility] Last Admin: 09/14/16 17:33 Dose: 3.5 mg - Objective Vital Signs: Vital Signs Temperature 97.8 F 09/15/16 15:07 Pulse Rate 78 09/15/16 15:07 Respiratory Rate 21 09/15/16 15:07 Blood Pressure 102/63 09/15/16 15:07 O2 Sat by Pulse Oximetry (%) 97 09/14/16 22:00 Constitutional: Yes: Calm Eyes: Yes: Conjunctiva Clear Cardiovascular: Yes: Murmur, S1, S2 Respiratory: Yes: On Nasal O2, Wheezes Gastrointestinal: Yes: Soft Genitourinary: Yes: WNL Musculoskeletal: Yes: Muscle Weakness Edema: Yes Edema: LLE: 2+, RLE: 2+ Neurological: Yes: Oriented Psychiatric: Yes: Oriented Labs: CBC, BMP 09/15/16 06:30 09/15/16 06:30 INR, PTT INR 2.81 (0.82-1.09) H 09/15/16 06:30 Problem List - Problems (1) Anemia Code(s): D64.9 - ANEMIA, UNSPECIFIED Qualifiers: Anemia type: iron deficiency (2) CHF (congestive heart failure) Code(s): I50.9 - HEART FAILURE, UNSPECIFIED Qualifiers: Congestive heart failure type: diastolic Congestive heart failure chronicity: acute on chronic Qualified Code(s): I50.33 - Acute on chronic diastolic (congestive) heart failure (3) Cholelithiasis Code(s): K80.20 - CALCULUS OF GALLBLADDER W/O CHOLECYSTITIS W/O OBSTRUCTION Qualifiers: Cholelithiasis location: gallbladder Cholecystitis presence: without cholecystitis Biliary obstruction: without biliary obstruction Qualified Code(s): K80.20 - Calculus of gallbladder without cholecystitis without obstruction (4) Hepatic cirrhosis Code(s): K74.60 - UNSPECIFIED CIRRHOSIS OF LIVER Qualifiers: Hepatic cirrhosis type: unspecified hepatic cirrhosis Ascites presence : without ascites Qualified Code(s): K74.60 - Unspecified cirrhosis of liver (5) S/P AVR (aortic valve replacement) Code(s): Z95.2 - PRESENCE OF PROSTHETIC HEART VALVE (6) S/P MVR (mitral valve replacement) Code(s): Z95.2 - PRESENCE OF PROSTHETIC HEART VALVE (8) Shortness of breath Code(s): R06.02 - SHORTNESS OF BREATH (9) RADHA (acute kidney injury) Code(s): N17.9 - ACUTE KIDNEY FAILURE, UNSPECIFIED Assessment/Plan Current Medications Generic Name Dose Route Start Last Admin Trade Name Freq PRN Reason Stop Dose Admin Acetaminophen 650 mg 09/05/16 20:01 Tylenol - PO Q6H PRN FEVER OR PAIN Albuterol Sulfate 1 amp 09/13/16 14:36 09/14/16 11:10 Ventolin 0.083% Nebulizer Soln - NEB 1 amp Q4H PRN Administration SHORT OF BREATH/WHEEZING Artificial Tears 1 drop 09/05/16 20:04 Artificial Tears OD DAILY PRN DRY EYES Bacitracin 1 applic 09/10/16 22:00 09/15/16 11:06 Bacitracin - TP Not Given BID [facility] Bacitracin 1 applic 09/14/16 22:00 09/15/16 11:00 Bacitracin - TP 1 applic BID [facility] Administration Ferrous Sulfate 325 mg 09/05/16 22:00 09/15/16 10:59 Feosol - PO 325 mg BID [facility] Administration Furosemide 40 mg 09/06/16 14:00 09/15/16 15:31 Lasix Injection - IVPUSH 40 mg BID@0600,1400 [facility] Administration Losartan Potassium 25 mg 09/06/16 10:00 09/15/16 10:59 Cozaar - PO 25 mg DAILY [facility] Administration Metolazone 2.5 mg 09/11/16 13:30 09/15/16 14:35 Zaroxolyn - PO 2.5 mg DAILY@1330 [facility] Administration Durezol 0.05% Opth 1 each 09/07/16 22:00 09/15/16 11:05 Drops - Patient Own OD 1 each Med BID [facility] Administration Spironolactone 25 mg 09/09/16 10:15 09/15/16 10:59 Aldactone - PO 25 mg DAILY [facility] Administration Warfarin Sodium 2.5 mg/ 3.5 mg 09/12/16 18:00 09/14/16 17:33 Warfarin Sodium 1 mg PO 3.5 mg DAILY@1800 [facility] Administration Impression 1. RADHA 2. aortic valve replacement 3. mitral valve replacement 4. tricuspid valve replacement 5. CHF 6. a-fib 7. anemia 8. hx GI bleed 9. HTN 10. liver cirrhosis Plan - cont with diuretics - cardio input appreciated - daily labs - ultrasound consistent with cirrhosis, GI eval - will follow - not on beta yuly for bradycardia - atrophic kidney on ultrasound Dr Bo
--- NOTE | 2016-09-15 17:38 | CONSULT ---
Consult - text type - Consultation Consultation Note: 85F admitted 09/05/16 for weakness/SOB. We have been consulted regarding h/o gi bleeding and patient is on coumadin. Has shortness of breath /weakness - Past Medical History Cardio/Vascular: Yes: AFIB, Aortic Insufficiency, Mitral Insufficiency, Other ( Rheumatic heart disease) Gastrointestinal: Yes: GI Bleed, Peptic Ulcer Disease, Other (AV malformation) Hepatobiliary: Yes: Cirrhosis, Cholelithiasis ENT: Yes: Other (nosebleeds) - Past Surgical History Past Surgical History: Yes: Valve Replacement (Mechanical AVR, MVR, bioprosthetic TVR) - Alcohol/Substance Use Hx Alcohol Use: Yes (seldom) - Smoking History Smoking history: Former smoker - Social History Usual Living Arrangement: Assisted Living ADL: Support Services Home Medications - Allergies Allergies/Adverse Reactions: Allergies Allergy/AdvReac Type Severity Reaction Status Date / Time clindamycin Allergy Mild Verified 09/05/16 16:21 Penicillins Allergy Mild Verified 09/05/16 16:21 vancomycin Allergy Mild Verified 09/05/16 16:21 PLASTIC TAPE Allergy Rash Uncoded 09/05/16 16:21 - Home Medications Home Medications: Ambulatory Orders Ferrous Sulfate [Feosol] 325 mg PO BID 04/25/13 Furosemide [Lasix -] 40 mg PO DAILY 07/28/13 Calcium Citrate/Vitamin D3 [Calcitrate + Vit D Caplet] 1 each PO BID 09/05/16 Difluprednate [Durezol] 1 drop OP BID 09/05/16 Losartan Potassium [Cozaar -] 25 mg PO DAILY 09/05/16 Nepafenac [Ilevro] 1 drop OP DAILY 09/05/16 Non-Formulary 1 tab PO DAILY 09/05/16 Warfarin Sodium [Coumadin] 3 mg PO ASDIR 09/05/16 Current Medications Acetaminophen (Tylenol -) 650 mg PO Q6H PRN PRN Reason: FEVER OR PAIN Albuterol Sulfate (Ventolin 0.083% Nebulizer Soln -) 1 amp NEB Q4H PRN PRN Reason: SHORT OF BREATH/WHEEZING Last Admin: 09/14/16 11:10 Dose: 1 amp Artificial Tears (Artificial Tears) 1 drop OD DAILY PRN PRN Reason: DRY EYES Bacitracin (Bacitracin -) 1 applic TP BID [facility] Last Admin: 09/15/16 11:06 Dose: Not Given Bacitracin (Bacitracin -) 1 applic TP BID [facility] Last Admin: 09/15/16 11:00 Dose: 1 applic Ferrous Sulfate (Feosol -) 325 mg PO BID [facility] Last Admin: 09/15/16 10:59 Dose: 325 mg Furosemide (Lasix Injection -) 40 mg IVPUSH BID@0600,1400 [facility] Last Admin: 09/15/16 15:31 Dose: 40 mg Losartan Potassium (Cozaar -) 25 mg PO DAILY [facility] Last Admin: 09/15/16 10:59 Dose: 25 mg Metolazone (Zaroxolyn -) 2.5 mg PO DAILY@1330 [facility] Last Admin: 09/15/16 14:35 Dose: 2.5 mg Durezol 0.05% Opth Drops - Patient Own Med 1 each OD BID [facility] Last Admin: 09/15/16 11:05 Dose: 1 each Spironolactone (Aldactone -) 25 mg PO DAILY [facility] Last Admin: 09/15/16 10:59 Dose: 25 mg Warfarin Sodium 2.5 mg/ (Warfarin Sodium 1 mg) 3.5 mg PO DAILY@1800 [facility] Last Admin: 09/14/16 17:33 Dose: 3.5 mg Family Disease History - Family Disease History Other Family History: History of HTN Review of Systems - Review of Systems HENT: reports: Epistaxis Cardiovascular: reports: Shortness of Breath, Other (LE swelling). denies: Chest Pain Respiratory: reports: SOB. denies: Cough Gastrointestinal: denies: Abdominal Pain, Constipation, Diarrhea, Dysphagia, Melena, Nausea, Rectal Bleeding, Vomiting Physical Exam-GI Vital Signs: Last Vital Signs Temp Pulse Resp BP Pulse Ox 97.8 F 78 21 102/63 97 09/15/16 15:07 09/15/16 15:07 09/15/16 15:07 09/15/16 15:07 09/14/16 22:00 Constitutional: Yes: Calm Eyes: No: Sclera Icterus Cardiovascular: Yes: Regular Rate and Rhythm, Murmur, Other (mechanical heart sounds present) Respiratory: Yes: Diminished (at bases b/l, poor insp. effort), Tachypnea ...Auscultate: Yes: Normoactive Bowel Sounds ...Palpate: Yes: Hepatomegaly (prominent edge of the liver). Edema: Yes Edema: LLE: 2+, RLE: 2+ Neurological: Yes: Alert, Oriented Abnormal Lab Results 09/15/16 09/15/16 09/15/16 06:30 06:30 06:30 RBC 3.08 L Hgb 8.9 L Hct 27.6 L RDW 16.2 H Monocytes % 18.9 H Eosinophils % 4.9 H INR 2.81 H Chloride 92 L Carbon Dioxide 38 H BUN 84 H Creatinine 1.1 H Total Bilirubin 1.2 H D AST 119 H Alkaline Phosphatase 148 H A/ 85 y/o with mechanical heart valves, CHF, CKD, cirrhosis, on chronic a/c for mechanical valves, gi bleed, AVMs now with worsening weakness/edema/SOB INR monitoring difficult with mechanical valves on coumadin, cirrhosis. 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 unable to get MRI due to mechanical valves. AFP pending. ? transjugular biopsy ? radioembolization will discuss with gi team
[2016-09-15] MEDS ORDERED: WARFARIN NA 1 MG TABLET (FP) ONE (18:05)
[2016-09-15] MEDS ORDERED: WARFARIN NA 2.5 MG TABLET (FP) ONE (18:05)
[2016-09-15] MEDS: WARFARIN NA 2.5 MG, WARFARIN NA 1 MG PO SCH (18:08)
--- NOTE | 2016-09-15 19:20 | PN ---
GI Progress Note Subjective: GASTROENTEROLOGY REVIEWED CHART. LAST TIME I SAW SYED WAS IN 2012. HAD A POSITIVE HIDA SCAN AND SENT TO [facility] FOR SURGERY. SHE WAS SEEING DR LEONARD, A DOG WALKER. THE LAST TIME SHE SAW HER WAS 2011 AND SHE HAS NOT FOLLOWED UP WITH ME OR OTHER HEPATOLOGISTS SONOGRAM RESULTS NOW SHOW A GREATER THAN 5 CM MASS IN THE LIVER, AFP IS PENDING. SHE IS TILL SOB AND HER EDEMA IN HER LEGS HAS IMPROVED - Objective Vital Signs: Vital Signs Temperature 97.8 F 09/15/16 15:07 Pulse Rate 78 09/15/16 15:07 Respiratory Rate 21 09/15/16 15:07 Blood Pressure 102/63 09/15/16 15:07 O2 Sat by Pulse Oximetry (%) 97 09/14/16 22:00 Constitutional: Calm Eyes: Yes: Conjunctiva Clear HENT: Yes: WNL Cardiovascular: Yes: Murmur, Other (VALVE "CLICKS") Respiratory: Yes: Diminished (AT BASES) ...Auscultate: Yes: Normoactive Bowel Sounds ...Palpate: Yes: Soft, Tenderness (RUQ PAIN, ?MASS?) Extremities: Yes: WNL Labs: CBC, BMP 09/15/16 06:30 09/15/16 06:30 INR, PTT INR 2.81 (0.82-1.09) H 09/15/16 06:30 Problem List - Problems (1) Liver mass Assessment/Plan: SPOKE WITH PATIENT AND DAUGHTER AWAIT RESULT OF AFP-TM. THE DIAGNOSIS FOR THIS MAY BE DIFFICULT DUE TO RENAL AND CARDIAC STATUS. IF THE AFP-TM IS DIAGNOSTIC THEN SOME THERAPIES CAN BE DISCUSSED. IF IT IS NOT THEN CT SCAN (CONTRAST???) OR BIOPSY MAY BE SUGGESTED. SHE WAS DIAGNOSED WITH CIRRHOSIS IN 2011 BUT STOPPED GOING TO HER DOG WALKER AT [facility]. I HAVE DISCUSSED THE SITUATION WITH THE PATIENT AND HER DAUGHTER. I HAVE DISCUSSED THE POSSIBILITY THAT THIS IS A CANCEROUS MASS IN THE LIVER ( HEPATOMA). DIAGNOSTIC STUDIES SUCH CT SCAN, BIOPSY HAVE BEEN DISCUSSED. THE FACT THAT HER CARDIAC AND RENAL STATUS MAY LIMIT CERTAIN TESTING WAS DISCUSSED. SENDING HER TO THE [facility] LIVER SECTION WAS ALSO DISCUSSED SHE WAS A PATIENT THERE AT NO TIME. AT THIS POINT SHE WANTS TO WAIT FOR HER AFP-TM TO BE RESULTED AND FURTHER TESTING CAN BE DISCUSSED AT THAT TIME. Code(s): R16.0 - HEPATOMEGALY, NOT ELSEWHERE CLASSIFIED (2) Hepatic cirrhosis Code(s): K74.60 - UNSPECIFIED CIRRHOSIS OF LIVER Qualifiers: Hepatic cirrhosis type: unspecified hepatic cirrhosis Ascites presence : without ascites Qualified Code(s): K74.60 - Unspecified cirrhosis of liver (3) RADHA (acute kidney injury) Code(s): N17.9 - ACUTE KIDNEY FAILURE, UNSPECIFIED (4) Anemia Code(s): D64.9 - ANEMIA, UNSPECIFIED Qualifiers: Anemia type: iron deficiency (5) CHF (congestive heart failure) Code(s): I50.9 - HEART FAILURE, UNSPECIFIED Qualifiers: Congestive heart failure type: diastolic Congestive heart failure chronicity: acute on chronic Qualified Code(s): I50.33 - Acute on chronic diastolic (congestive) heart failure (6) Cholelithiasis Code(s): K80.20 - CALCULUS OF GALLBLADDER W/O CHOLECYSTITIS W/O OBSTRUCTION Qualifiers: Cholelithiasis location: gallbladder Cholecystitis presence: without cholecystitis Biliary obstruction: without biliary obstruction Qualified Code(s): K80.20 - Calculus of gallbladder without cholecystitis without obstruction
[2016-09-15] MEDS: NEPAFENAC 0.3% OD SCH ×2 (21:28→21:29)
[2016-09-16] MEDS: FUROSEMIDE 40 MG/4 ML INJECTABLE VIAL IVPUSH SCH ×2 (05:09→15:31)
[2016-09-16 08:45] LABS: INR 3.25 (0.82-1.09); PROTHROMBIN TIME (PATIENT) 36.6 SEC (9.98-11.88)
--- NOTE | 2016-09-16 10:09 | PN ---
Progress Note (short form) - Note Progress Note: PULMONARY Breathing about the same. Diuresing well. Denies chest pain, cough or palpitations. Abd U/S showing mass noted. Last Vital Signs Temp Pulse Resp BP Pulse Ox 98.2 F 60 20 106/34 97 09/16/16 06:42 09/16/16 06:42 09/16/16 06:42 09/16/16 06:42 09/14/16 22:00 Intake & Output 09/13/16 09/14/16 09/15/16 09/16/16 23:59 23:59 23:59 23:59 Intake Total 4072 506 7829 Output Total 2700 3100 2050 250 Balance -1460 -2300 -790 -250 Weight 156 lb 3.2 oz 156 lb 152 lb 8.958 oz 147 lb 1 oz Gen: mildly tachypneic with speaking Heart: RRR Lung: bibasilar rales Abd: soft, nontender Ext: + edema CBC, BMP 09/15/16 06:30 09/15/16 06:30 Active Medications Acetaminophen (Tylenol -) 650 mg PO Q6H PRN PRN Reason: FEVER OR PAIN Albuterol Sulfate (Ventolin 0.083% Nebulizer Soln -) 1 amp NEB Q4H PRN PRN Reason: SHORT OF BREATH/WHEEZING Last Admin: 09/14/16 11:10 Dose: 1 amp Artificial Tears (Artificial Tears) 1 drop OD DAILY PRN PRN Reason: DRY EYES Bacitracin (Bacitracin -) 1 applic TP BID [facility] Last Admin: 09/15/16 21:24 Dose: 1 applic Bacitracin (Bacitracin -) 1 applic TP BID [facility] Last Admin: 09/15/16 21:24 Dose: 1 applic Ferrous Sulfate (Feosol -) 325 mg PO BID [facility] Last Admin: 09/15/16 21:23 Dose: 325 mg Furosemide (Lasix Injection -) 40 mg IVPUSH BID@0600,1400 [facility] Last Admin: 09/16/16 05:09 Dose: 40 mg Losartan Potassium (Cozaar -) 25 mg PO DAILY [facility] Last Admin: 09/15/16 10:59 Dose: 25 mg Metolazone (Zaroxolyn -) 2.5 mg PO DAILY@1330 [facility] Last Admin: 12/12/16 14:35 Dose: 2.5 mg Durezol 0.05% Opth Drops - Patient Own Med 1 each OD BID [facility] Last Admin: 09/15/16 21:24 Dose: 1 each Spironolactone (Aldactone -) 25 mg PO DAILY [facility] Last Admin: 09/15/16 10:59 Dose: 25 mg Warfarin Sodium 2.5 mg/ (Warfarin Sodium 1 mg) 3.5 mg PO DAILY@1800 [facility] Last Admin: 09/15/16 18:08 Dose: 3.5 mg A/P Acute on Chronic LV Diastolic Heart Failure Pulmonary HTN s/p AVR/MVR Atrial Fibrillation Liver Cirrhosis r/o Hepatoma - continue lasix, aldactone, zaroxolyn - monitor urine output, creatinine - daily weights, I/Os - rate controlled - continue anticoagulation - O2 to keep SpO2 >90% - inhaled bronchodilators as needed
[2016-09-16] MEDS ORDERED: PT OWN MED DRAWER 7, Y5N ONE ×2 (10:56→13:45)
[2016-09-16] MEDS: FERROUS SO4 325 MG TABLET (FP) PO SCH ×2 (12:45→22:15)
[2016-09-16] MEDS: SPIRONOLACTONE 25 MG TABLET (FP) PO SCH (12:45)
[2016-09-16] MEDS: LOSARTAN POTASSIUM 50 MG TABLET (FP) PO SCH (12:46)
[2016-09-16] MEDS: BACITRACIN 30 GM TUBE TOPICAL OINTMENT TP SCH ×4 (12:47→22:15)
[2016-09-16] MEDS: OPTH OD SCH ×2 (12:47→22:15)
[2016-09-16] MEDS: DUREZOL 0.05% OD SCH ×2 (12:47→22:15)
--- NOTE | 2016-09-16 13:43 | PN ---
Progress Note, Physician History of Present Illness: Pt seen and examined at bedside. She is awake and alert. She feels the same as yesterday. - Current Medication List Current Medications: Active Medications Acetaminophen (Tylenol -) 650 mg PO Q6H PRN PRN Reason: FEVER OR PAIN Albuterol Sulfate (Ventolin 0.083% Nebulizer Soln -) 1 amp NEB Q4H PRN PRN Reason: SHORT OF BREATH/WHEEZING Last Admin: 09/14/16 11:10 Dose: 1 amp Artificial Tears (Artificial Tears) 1 drop OD DAILY PRN PRN Reason: DRY EYES Bacitracin (Bacitracin -) 1 applic TP BID [facility] Last Admin: 09/16/16 12:47 Dose: 1 applic Bacitracin (Bacitracin -) 1 applic TP BID [facility] Last Admin: 09/16/16 12:47 Dose: Not Given Ferrous Sulfate (Feosol -) 325 mg PO BID [facility] Last Admin: 09/16/16 12:45 Dose: 325 mg Furosemide (Lasix Injection -) 40 mg IVPUSH BID@0600,1400 [facility] Last Admin: 09/16/16 05:09 Dose: 40 mg Losartan Potassium (Cozaar -) 25 mg PO DAILY [facility] Last Admin: 09/16/16 12:46 Dose: 25 mg Metolazone (Zaroxolyn -) 2.5 mg PO DAILY@1330 [facility] Last Admin: 09/15/16 14:35 Dose: 2.5 mg Durezol 0.05% Opth Drops - Patient Own Med 1 each OD BID [facility] Last Admin: 09/16/16 12:47 Dose: 1 each Spironolactone (Aldactone -) 25 mg PO DAILY [facility] Last Admin: 09/16/16 12:45 Dose: 25 mg Warfarin Sodium 2.5 mg/ (Warfarin Sodium 1 mg) 3.5 mg PO DAILY@1800 [facility] Last Admin: 09/15/16 18:08 Dose: 3.5 mg - Objective Vital Signs: Vital Signs Temperature 98.2 F 09/16/16 06:42 Pulse Rate 60 09/16/16 06:42 Respiratory Rate 20 09/16/16 06:42 Blood Pressure 106/34 09/16/16 06:42 O2 Sat by Pulse Oximetry (%) 97 09/14/16 22:00 Constitutional: Yes: Calm Eyes: Yes: Conjunctiva Clear HENT: Yes: Atraumatic Cardiovascular: Yes: Murmur, S1, S2 Respiratory: Yes: Diminished, On Nasal O2 Gastrointestinal: Yes: Soft Genitourinary: Yes: WNL Musculoskeletal: Yes: Muscle Weakness Edema: Yes Edema: LLE: 2+, RLE: 2+ Neurological: Yes: Oriented Psychiatric: Yes: Oriented Labs: CBC, BMP 09/15/16 06:30 09/15/16 06:30 INR, PTT INR 3.25 (0.82-1.09) H 09/16/16 06:30 Problem List - Problems (1) Anemia Code(s): D64.9 - ANEMIA, UNSPECIFIED Qualifiers: Anemia type: iron deficiency (2) CHF (congestive heart failure) Code(s): I50.9 - HEART FAILURE, UNSPECIFIED Qualifiers: Congestive heart failure type: diastolic Congestive heart failure chronicity: acute on chronic Qualified Code(s): I50.33 - Acute on chronic diastolic (congestive) heart failure (3) Cholelithiasis Code(s): K80.20 - CALCULUS OF GALLBLADDER W/O CHOLECYSTITIS W/O OBSTRUCTION Qualifiers: Cholelithiasis location: gallbladder Cholecystitis presence: without cholecystitis Biliary obstruction: without biliary obstruction Qualified Code(s): K80.20 - Calculus of gallbladder without cholecystitis without obstruction (4) Hepatic cirrhosis Code(s): K74.60 - UNSPECIFIED CIRRHOSIS OF LIVER Qualifiers: Hepatic cirrhosis type: unspecified hepatic cirrhosis Ascites presence : without ascites Qualified Code(s): K74.60 - Unspecified cirrhosis of liver (5) S/P AVR (aortic valve replacement) Code(s): Z95.2 - PRESENCE OF PROSTHETIC HEART VALVE (6) S/P MVR (mitral valve replacement) Code(s): Z95.2 - PRESENCE OF PROSTHETIC HEART VALVE (8) Shortness of breath Code(s): R06.02 - SHORTNESS OF BREATH (9) RADHA (acute kidney injury) Code(s): N17.9 - ACUTE KIDNEY FAILURE, UNSPECIFIED Assessment/Plan Current Medications Generic Name Dose Route Start Last Admin Trade Name Freq PRN Reason Stop Dose Admin Acetaminophen 650 mg 09/05/16 20:01 Tylenol - PO Q6H PRN FEVER OR PAIN Albuterol Sulfate 1 amp 09/13/16 14:36 09/14/16 11:10 Ventolin 0.083% Nebulizer Soln - NEB 1 amp Q4H PRN Administration SHORT OF BREATH/WHEEZING Artificial Tears 1 drop 09/05/16 20:04 Artificial Tears OD DAILY PRN DRY EYES Bacitracin 1 applic 09/10/16 22:00 09/16/16 12:47 Bacitracin - TP 1 applic BID [facility] Administration Bacitracin 1 applic 09/14/16 22:00 09/16/16 12:47 Bacitracin - TP Not Given BID [facility] Ferrous Sulfate 325 mg 09/05/16 22:00 09/16/16 12:45 Feosol - PO 325 mg BID [facility] Administration Furosemide 40 mg 09/06/16 14:00 09/16/16 05:09 Lasix Injection - IVPUSH 40 mg BID@0600,1400 [facility] Administration Losartan Potassium 25 mg 09/06/16 10:00 09/16/16 12:46 Cozaar - PO 25 mg DAILY [facility] Administration Metolazone 2.5 mg 09/11/16 13:30 09/15/16 14:35 Zaroxolyn - PO 2.5 mg DAILY@1330 [facility] Administration Durezol 0.05% Opth 1 each 09/07/16 22:00 09/16/16 12:47 Drops - Patient Own OD 1 each Med BID [facility] Administration Spironolactone 25 mg 09/09/16 10:15 09/16/16 12:45 Aldactone - PO 25 mg DAILY [facility] Administration Warfarin Sodium 2.5 mg/ 3.5 mg 09/12/16 18:00 09/15/16 18:08 Warfarin Sodium 1 mg PO 3.5 mg DAILY@1800 [facility] Administration Impression 1. RADHA 2. aortic valve replacement 3. mitral valve replacement 4. tricuspid valve replacement 5. CHF 6. a-fib 7. anemia 8. hx GI bleed 9. HTN 10. liver cirrhosis Plan - monitor renal function - GI input appreciated - follow GI workup - will cont diuretics as per cardio and monitor renal function closely - will follow - not on beta yuly for bradycardia - atrophic kidney on ultrasound Dr Bo
[2016-09-16] MEDS: METOLAZONE 2.5 MG TABLET (FP) PO SCH (14:08)
--- NOTE | 2016-09-16 14:16 | PN ---
Progress Note, Physician Chief Complaint: AWAKE ALERT +DYSPNEA AT REST ON THERAPY CHART AND EVENTS REVIEWED - Current Medication List Current Medications: Active Medications Acetaminophen (Tylenol -) 650 mg PO Q6H PRN PRN Reason: FEVER OR PAIN Albuterol Sulfate (Ventolin 0.083% Nebulizer Soln -) 1 amp NEB Q4H PRN PRN Reason: SHORT OF BREATH/WHEEZING Last Admin: 09/14/16 11:10 Dose: 1 amp Artificial Tears (Artificial Tears) 1 drop OD DAILY PRN PRN Reason: DRY EYES Bacitracin (Bacitracin -) 1 applic TP BID [facility] Last Admin: 09/16/16 12:47 Dose: 1 applic Bacitracin (Bacitracin -) 1 applic TP BID [facility] Last Admin: 09/16/16 12:47 Dose: Not Given Ferrous Sulfate (Feosol -) 325 mg PO BID [facility] Last Admin: 09/16/16 12:45 Dose: 325 mg Furosemide (Lasix Injection -) 40 mg IVPUSH BID@0600,1400 [facility] Last Admin: 09/16/16 05:09 Dose: 40 mg Losartan Potassium (Cozaar -) 25 mg PO DAILY [facility] Last Admin: 09/16/16 12:46 Dose: 25 mg Metolazone (Zaroxolyn -) 2.5 mg PO DAILY@1330 [facility] Last Admin: 09/15/16 14:35 Dose: 2.5 mg Durezol 0.05% Opth Drops - Patient Own Med 1 each OD BID [facility] Last Admin: 09/16/16 12:47 Dose: 1 each Spironolactone (Aldactone -) 25 mg PO DAILY [facility] Last Admin: 09/16/16 12:45 Dose: 25 mg Warfarin Sodium (Coumadin -) 2.5 mg PO DAILY@1800 [facility] - Objective Vital Signs: Vital Signs Temperature 98.2 F 09/16/16 06:42 Pulse Rate 60 09/16/16 06:42 Respiratory Rate 20 09/16/16 06:42 Blood Pressure 106/34 09/16/16 06:42 O2 Sat by Pulse Oximetry (%) 97 09/14/16 22:00 Constitutional: Yes: Moderate Distress Eyes: Yes: WNL HENT: Yes: WNL Neck: Yes: WNL Cardiovascular: Yes: Pulse Irregular, Murmur Respiratory: Yes: Diminished, On Nasal O2, Poor Air Entry, SOB, SOB on Exertion Gastrointestinal: Yes: Hepatomegaly Genitourinary: Yes: WNL Musculoskeletal: Yes: Muscle Weakness Extremities: Yes: Other (ANASARCA) Edema: Yes Edema: LLE: 2+, RLE: 2+ Peripheral Pulses WNL: Yes Integumentary: Yes: Venous Stasis Changes Wound/Incision: Yes: Dressing Dry and Intact Neurological: Yes: Other ...Motor Strength: LLE, RLE Psychiatric: Yes: WNL Labs: CBC, BMP 09/15/16 06:30 09/15/16 06:30 INR, PTT INR 3.25 (0.82-1.09) H 09/16/16 06:30 Problem List - Problems (1) Anemia Code(s): D64.9 - ANEMIA, UNSPECIFIED Qualifiers: Anemia type: iron deficiency (2) CHF (congestive heart failure) Code(s): I50.9 - HEART FAILURE, UNSPECIFIED Qualifiers: Congestive heart failure type: diastolic Congestive heart failure chronicity: acute on chronic Qualified Code(s): I50.33 - Acute on chronic diastolic (congestive) heart failure (3) Elevated serum creatinine Code(s): R79.89 - OTHER SPECIFIED ABNORMAL FINDINGS OF BLOOD CHEMISTRY (4) Hepatic cirrhosis Code(s): K74.60 - UNSPECIFIED CIRRHOSIS OF LIVER Qualifiers: Hepatic cirrhosis type: unspecified hepatic cirrhosis Ascites presence : without ascites Qualified Code(s): K74.60 - Unspecified cirrhosis of liver (5) Rheumatic heart disease Code(s): I09.9 - RHEUMATIC HEART DISEASE, UNSPECIFIED (6) S/P AVR (aortic valve replacement) Code(s): Z95.2 - PRESENCE OF PROSTHETIC HEART VALVE (7) S/P MVR (mitral valve replacement) Code(s): Z95.2 - PRESENCE OF PROSTHETIC HEART VALVE (9) Shortness of breath Code(s): R06.02 - SHORTNESS OF BREATH Assessment/Plan LIVER HEPATOMA ONCOLOGY/GI FOLLOW UP APPRECIATED AGE AND COMORBID DISEASES WILL MAKE THIS DIFFICULT TO WORKUP. WILL DISCUSS WITH FAMILY AND ASK HOW AGGRESSIVE WORKUP WILL BE. INR 3.2 HOLD COUMADIN TODAY, BECAUSE OF LIVER DISEASE INR ALWAYS FLUCTUATES OOB TO CHAIR 02 SUPPORT DIURESIS WITH WEIGHT LOSS 5LBS SINCE YESTERDAY
--- NOTE | 2016-09-16 17:39 | PN ---
Progress Note, Physician Chief Complaint: Dyspnea persists with pedal edema History of Present Illness: Patient was seen and examined. Awake and alert. Chart was reviewed Denies chest pain or palpitations Less SOB Pedal edema persists Spoke with daughter by bedside concerned about Coumadin dosing with today's INR at 3.2 - Current Medication List Current Medications: Active Medications Acetaminophen (Tylenol -) 650 mg PO Q6H PRN PRN Reason: FEVER OR PAIN Albuterol Sulfate (Ventolin 0.083% Nebulizer Soln -) 1 amp NEB Q4H PRN PRN Reason: SHORT OF BREATH/WHEEZING Last Admin: 09/14/16 11:10 Dose: 1 amp Artificial Tears (Artificial Tears) 1 drop OD DAILY PRN PRN Reason: DRY EYES Bacitracin (Bacitracin -) 1 applic TP BID [facility] Last Admin: 09/16/16 12:47 Dose: 1 applic Bacitracin (Bacitracin -) 1 applic TP BID [facility] Last Admin: 09/16/16 12:47 Dose: Not Given Ferrous Sulfate (Feosol -) 325 mg PO BID [facility] Last Admin: 09/16/16 12:45 Dose: 325 mg Furosemide (Lasix Injection -) 40 mg IVPUSH BID@0600,1400 [facility] Last Admin: 09/16/16 15:31 Dose: 40 mg Losartan Potassium (Cozaar -) 25 mg PO DAILY [facility] Last Admin: 09/16/16 12:46 Dose: 25 mg Metolazone (Zaroxolyn -) 2.5 mg PO DAILY@1330 [facility] Last Admin: 09/16/16 14:08 Dose: 2.5 mg Durezol 0.05% Opth Drops - Patient Own Med 1 each OD BID [facility] Last Admin: 09/16/16 12:47 Dose: 1 each Spironolactone (Aldactone -) 25 mg PO DAILY [facility] Last Admin: 09/16/16 12:45 Dose: 25 mg Warfarin Sodium (Coumadin -) 2.5 mg PO DAILY@1800 [facility] - Objective Vital Signs: Vital Signs Temperature 97.6 F 09/16/16 15:01 Pulse Rate 55 L 09/16/16 15:01 Respiratory Rate 22 09/16/16 15:01 Blood Pressure 122/45 09/16/16 15:01 O2 Sat by Pulse Oximetry (%) 97 09/14/16 22:00 Neck: Yes: Supple Cardiovascular: Yes: Pulse Irregular, Murmur (Soft decresendo systolic murmur and diastolic murmur), S1, S2 Respiratory: Yes: Diminished Gastrointestinal: Yes: Normal Bowel Sounds, Soft. No: Tenderness Edema: Yes Edema: LLE: 1+, RLE: 1+ Additional Findings/Remarks: - Review of Systems Constitutional: denies: Chills Cardiovascular: reports: Shortness of Breath. denies: Chest Pain, Palpitations Respiratory: reports: SOB, SOB on Exertion. denies: Cough, Hemoptysis, Orthopnea, PND Gastrointestinal: denies: Abdominal Pain, Constipation, Diarrhea, Melena, Nausea , Rectal Bleeding, Vomiting Musculoskeletal: denies: Joint Pain Neurological: denies: Dizziness, Headache, Seizure, Syncope Labs: CBC, BMP 09/15/16 06:30 09/15/16 06:30 INR, PTT INR 3.25 (0.82-1.09) H 09/16/16 06:30 Problem List - Problems (1) CHF (congestive heart failure) Code(s): I50.9 - HEART FAILURE, UNSPECIFIED Qualifiers: Congestive heart failure type: diastolic Congestive heart failure chronicity: acute on chronic Qualified Code(s): I50.33 - Acute on chronic diastolic (congestive) heart failure (2) Shortness of breath Code(s): R06.02 - SHORTNESS OF BREATH (3) S/P MVR (mitral valve replacement) Code(s): Z95.2 - PRESENCE OF PROSTHETIC HEART VALVE (4) Rheumatic heart disease Code(s): I09.9 - RHEUMATIC HEART DISEASE, UNSPECIFIED (5) S/P AVR (aortic valve replacement) Code(s): Z95.2 - PRESENCE OF PROSTHETIC HEART VALVE (7) Anemia Code(s): D64.9 - ANEMIA, UNSPECIFIED Qualifiers: Anemia type: iron deficiency (8) Hepatic cirrhosis Code(s): K74.60 - UNSPECIFIED CIRRHOSIS OF LIVER Qualifiers: Hepatic cirrhosis type: unspecified hepatic cirrhosis Ascites presence : without ascites Qualified Code(s): K74.60 - Unspecified cirrhosis of liver Assessment/Plan 1. Clinical presentation c/w acute on chronic LV diastolic failure with NYHA II- III classification heart failure 2. Post MVR and AVR (mechanical prosthesis) with history of rheumatic heart disease 3. Post TVR (bioprosthesis) with moderate tricuspid regurgitation and severe pulmonary hypertension 4. Permanent atrial fibrillation 5. Anemia 6. History of hepatic cirrhosis and cholelithiasis 7. Hyponatremia PLAN: 1. Continue IV Lasix 40 mg BID as tolerated and monitor renal function and electrolytes. Monitor I/Os. Patient is also on Spironolactone and Zaroxolyn for added diuresis. 2. Continue Coumadin as per INR - to be held today as per PMD 3. Continue Cozaar as tolerated. Currently not on beta yuly and held due to history of bradycardia Further plans are to follow Elio Barroso MD
--- NOTE | 2016-09-16 18:07 | PN ---
GI Progress Note Subjective: GASTROENTEROLOGY STILL SOB/EDEMA SONOGRAM C/W HEPATIC MASS/TUMOR AFP-TM > 39,000 - Objective Vital Signs: Vital Signs Temperature 99.9 F H 09/16/16 16:25 Pulse Rate 74 09/16/16 16:25 Respiratory Rate 20 09/16/16 16:25 Blood Pressure 138/59 09/16/16 16:25 O2 Sat by Pulse Oximetry (%) 97 09/14/16 22:00 Constitutional: Other (SOB AT REST) Eyes: Yes: Conjunctiva Clear Cardiovascular: Yes: Murmur Respiratory: Yes: Diminished, Other (BASES) ...Auscultate: Yes: Normoactive Bowel Sounds ...Palpate: Yes: Tenderness (RUQ PAIN) Extremities: Yes: Other (COMPRESSION WRAPS) Edema: Yes Labs: CBC, BMP 09/15/16 06:30 09/15/16 06:30 INR, PTT INR 3.25 (0.82-1.09) H 09/16/16 06:30 Laboratory Tests 09/15/16 09/15/16 06:30 06:30 Total Bilirubin 1.2 H D AST 119 H ALT 67 Alkaline Phosphatase 148 H Tumor Marker AFP 03379.0 H - ....Imaging Ultrasound: Image Reviewed Problem List - Problems (1) Hepatocellular carcinoma Assessment/Plan: I SPOKE WITH THE PATIENT TODAY - EXPLAINED TO HER THE FINDINGS AND MEANING OF SUCH A HIGH AFP-TM. A LEVEL THIS HIGH IN A CIRRHOTIC MAKES THE DIAGNOSIS OF HCC MOST LIKELY. I ASKED THAT HER DAUGHTER CALL ME TOMORROW (SHE IS NOT AVAILABLE TODAY) SPOKE WITH DR MENDOZA: PLAN IS FOR OUTPATIENT EVALUATION AT [facility] (SHE HAS BEEN SEEN THERE BEFORE) IF THERE ARE NO OPTIONS SUCH [facility]. THEN COULD CONSIDER [facility] Code(s): C22.0 - LIVER CELL CARCINOMA (2) Liver mass Code(s): R16.0 - HEPATOMEGALY, NOT ELSEWHERE CLASSIFIED (3) Hepatic cirrhosis Code(s): K74.60 - UNSPECIFIED CIRRHOSIS OF LIVER Qualifiers: Hepatic cirrhosis type: unspecified hepatic cirrhosis Ascites presence : without ascites Qualified Code(s): K74.60 - Unspecified cirrhosis of liver (4) RADHA (acute kidney injury) Code(s): N17.9 - ACUTE KIDNEY FAILURE, UNSPECIFIED (5) Anemia Code(s): D64.9 - ANEMIA, UNSPECIFIED Qualifiers: Anemia type: iron deficiency (6) CHF (congestive heart failure) Code(s): I50.9 - HEART FAILURE, UNSPECIFIED Qualifiers: Congestive heart failure type: diastolic Congestive heart failure chronicity: acute on chronic Qualified Code(s): I50.33 - Acute on chronic diastolic (congestive) heart failure (7) Cholelithiasis Code(s): K80.20 - CALCULUS OF GALLBLADDER W/O CHOLECYSTITIS W/O OBSTRUCTION Qualifiers: Cholelithiasis location: gallbladder Cholecystitis presence: without cholecystitis Biliary obstruction: without biliary obstruction Qualified Code(s): K80.20 - Calculus of gallbladder without cholecystitis without obstruction
[2016-09-17] MEDS: ZOLPIDEM TARTRATE 5 MG TABLET PO PRN ×2 (00:25→21:46)
[2016-09-17] MEDS: FUROSEMIDE 40 MG/4 ML INJECTABLE VIAL IVPUSH SCH ×2 (06:28→14:54)
[2016-09-17 08:43] LABS: INR 3.46 (0.82-1.09)
[2016-09-17 09:16] LABS: ALBUMIN 3.3 g/dl (3.4-5.0); BILIRUBIN,TOTAL 0.8 mg/dL (0.2-1.0); CALCIUM 8.7 mg/dL (8.5-10.1); CREATININE 1.3 mg/dL (0.55-1.02); TOT PROT 6.3 g/dl (6.4-8.2)
--- NOTE | 2016-09-17 10:25 | PN ---
Progress Note, Physician History of Present Illness: Pt seen and examined at bedside. She appears more comfortable today however she still has shortness of breath. - Current Medication List Current Medications: Active Medications Acetaminophen (Tylenol -) 650 mg PO Q6H PRN PRN Reason: FEVER OR PAIN Albuterol Sulfate (Ventolin 0.083% Nebulizer Soln -) 1 amp NEB Q4H PRN PRN Reason: SHORT OF BREATH/WHEEZING Last Admin: 09/14/16 11:10 Dose: 1 amp Artificial Tears (Artificial Tears) 1 drop OD DAILY PRN PRN Reason: DRY EYES Bacitracin (Bacitracin -) 1 applic TP BID [facility] Last Admin: 09/16/16 22:15 Dose: 1 applic Bacitracin (Bacitracin -) 1 applic TP BID [facility] Last Admin: 09/16/16 22:15 Dose: Not Given Ferrous Sulfate (Feosol -) 325 mg PO BID [facility] Last Admin: 09/16/16 22:15 Dose: 325 mg Furosemide (Lasix Injection -) 40 mg IVPUSH BID@0600,1400 [facility] Last Admin: 09/17/16 06:28 Dose: 40 mg Losartan Potassium (Cozaar -) 25 mg PO DAILY [facility] Last Admin: 09/16/16 12:46 Dose: 25 mg Metolazone (Zaroxolyn -) 2.5 mg PO DAILY@1330 [facility] Last Admin: 09/16/16 14:08 Dose: 2.5 mg Durezol 0.05% Opth Drops - Patient Own Med 1 each OD BID [facility] Last Admin: 09/16/16 22:15 Dose: 1 each Spironolactone (Aldactone -) 25 mg PO DAILY [facility] Last Admin: 09/16/16 12:45 Dose: 25 mg Warfarin Sodium (Coumadin -) 2.5 mg PO DAILY@1800 [facility] Zolpidem Tartrate (Ambien -) 5 mg PO HS PRN Last Admin: 09/17/16 00:25 Dose: 5 mg - Objective Vital Signs: Vital Signs Temperature 99.9 F H 09/16/16 16:25 Pulse Rate 74 09/16/16 16:25 Respiratory Rate 20 09/16/16 16:25 Blood Pressure 138/59 09/16/16 16:25 O2 Sat by Pulse Oximetry (%) 97 09/16/16 21:00 Constitutional: Yes: Calm Eyes: Yes: Conjunctiva Clear HENT: Yes: Atraumatic Cardiovascular: Yes: Murmur, S1, S2 Respiratory: Yes: Diminished, On Nasal O2 Gastrointestinal: Yes: Soft Genitourinary: Yes: WNL Musculoskeletal: Yes: Muscle Weakness Edema: Yes Edema: LLE: 2+, RLE: 2+ Neurological: Yes: Oriented Psychiatric: Yes: Oriented Labs: CBC, BMP 09/15/16 06:30 09/17/16 07:59 INR, PTT INR 3.46 (0.82-1.09) H 09/17/16 07:59 Problem List - Problems (1) Anemia Code(s): D64.9 - ANEMIA, UNSPECIFIED Qualifiers: Anemia type: iron deficiency (2) CHF (congestive heart failure) Code(s): I50.9 - HEART FAILURE, UNSPECIFIED Qualifiers: Congestive heart failure type: diastolic Congestive heart failure chronicity: acute on chronic Qualified Code(s): I50.33 - Acute on chronic diastolic (congestive) heart failure (3) Cholelithiasis Code(s): K80.20 - CALCULUS OF GALLBLADDER W/O CHOLECYSTITIS W/O OBSTRUCTION Qualifiers: Cholelithiasis location: gallbladder Cholecystitis presence: without cholecystitis Biliary obstruction: without biliary obstruction Qualified Code(s): K80.20 - Calculus of gallbladder without cholecystitis without obstruction (4) Hepatic cirrhosis Code(s): K74.60 - UNSPECIFIED CIRRHOSIS OF LIVER Qualifiers: Hepatic cirrhosis type: unspecified hepatic cirrhosis Ascites presence : without ascites Qualified Code(s): K74.60 - Unspecified cirrhosis of liver (5) S/P AVR (aortic valve replacement) Code(s): Z95.2 - PRESENCE OF PROSTHETIC HEART VALVE (6) S/P MVR (mitral valve replacement) Code(s): Z95.2 - PRESENCE OF PROSTHETIC HEART VALVE (8) Shortness of breath Code(s): R06.02 - SHORTNESS OF BREATH (9) RADHA (acute kidney injury) Code(s): N17.9 - ACUTE KIDNEY FAILURE, UNSPECIFIED Assessment/Plan Current Medications Generic Name Dose Route Start Last Admin Trade Name Freq PRN Reason Stop Dose Admin Acetaminophen 650 mg 09/05/16 20:01 Tylenol - PO Q6H PRN FEVER OR PAIN Albuterol Sulfate 1 amp 09/13/16 14:36 09/14/16 11:10 Ventolin 0.083% Nebulizer Soln - NEB 1 amp Q4H PRN Administration SHORT OF BREATH/WHEEZING Artificial Tears 1 drop 09/05/16 20:04 Artificial Tears OD DAILY PRN DRY EYES Bacitracin 1 applic 09/10/16 22:00 09/16/16 22:15 Bacitracin - TP 1 applic BID [facility] Administration Bacitracin 1 applic 09/14/16 22:00 09/16/16 22:15 Bacitracin - TP Not Given BID [facility] Ferrous Sulfate 325 mg 09/05/16 22:00 09/16/16 22:15 Feosol - PO 325 mg BID [facility] Administration Furosemide 40 mg 09/06/16 14:00 09/17/16 06:28 Lasix Injection - IVPUSH 40 mg BID@0600,1400 [facility] Administration Losartan Potassium 25 mg 09/06/16 10:00 09/16/16 12:46 Cozaar - PO 25 mg DAILY [facility] Administration Metolazone 2.5 mg 09/11/16 13:30 09/16/16 14:08 Zaroxolyn - PO 2.5 mg DAILY@1330 [facility] Administration Durezol 0.05% Opth 1 each 09/07/16 22:00 09/16/16 22:15 Drops - Patient Own OD 1 each Med BID [facility] Administration Spironolactone 25 mg 09/09/16 10:15 09/16/16 12:45 Aldactone - PO 25 mg DAILY [facility] Administration Warfarin Sodium 2.5 mg 09/17/16 18:00 Coumadin - PO DAILY@1800 [facility] Zolpidem Tartrate 5 mg 09/17/16 00:26 09/17/16 00:25 Ambien - PO 5 mg HS PRN Administration Impression 1. RADHA 2. aortic valve replacement 3. mitral valve replacement 4. tricuspid valve replacement 5. CHF 6. a-fib 7. anemia 8. hx GI bleed 9. HTN 10. liver cirrhosis 11. CKD Plan - renal function is worse today - GI input appreciated, possible HCC - may need to settle for higher creatinine to keep pt euvolemic - will need close renal follow up while on diuretics - GI workup in progress - will follow - not on beta yuly for bradycardia - atrophic kidney on ultrasound Dr Bo
[2016-09-17] MEDS ORDERED: PT OWN MED DRAWER 7, Y5N ONE ×2 (10:55→18:52)
[2016-09-17] MEDS: FERROUS SO4 325 MG TABLET (FP) PO SCH ×2 (11:14→21:45)
[2016-09-17] MEDS: BACITRACIN 30 GM TUBE TOPICAL OINTMENT TP SCH ×4 (11:14→21:47)
[2016-09-17] MEDS: DUREZOL 0.05% OD SCH ×2 (11:14→21:47)
[2016-09-17] MEDS: OPTH OD SCH ×2 (11:14→21:47)
[2016-09-17] MEDS: LOSARTAN POTASSIUM 50 MG TABLET (FP) PO SCH (11:14)
[2016-09-17] MEDS: SPIRONOLACTONE 25 MG TABLET (FP) PO SCH (11:14)
[2016-09-17] MEDS: ALBUTEROL SO4 0.083% IH SOL 2.5 MG/3 ML VIAL.NEB. NEB PRN ×2 (11:28→17:30)
--- NOTE | 2016-09-17 13:17 | PN ---
Progress Note, Physician Chief Complaint: KNOWS LIVER DIAGNOSIS NO SIGNIFICANT CHANGE - Current Medication List Current Medications: Active Medications Acetaminophen (Tylenol -) 650 mg PO Q6H PRN PRN Reason: FEVER OR PAIN Albuterol Sulfate (Ventolin 0.083% Nebulizer Soln -) 1 amp NEB Q4H PRN PRN Reason: SHORT OF BREATH/WHEEZING Last Admin: 09/17/16 11:28 Dose: 1 amp Artificial Tears (Artificial Tears) 1 drop OD DAILY PRN PRN Reason: DRY EYES Bacitracin (Bacitracin -) 1 applic TP BID [facility] Last Admin: 09/17/16 11:14 Dose: 1 applic Bacitracin (Bacitracin -) 1 applic TP BID [facility] Last Admin: 09/17/16 11:15 Dose: Not Given Ferrous Sulfate (Feosol -) 325 mg PO BID [facility] Last Admin: 09/17/16 11:14 Dose: 325 mg Furosemide (Lasix Injection -) 40 mg IVPUSH BID@0600,1400 [facility] Last Admin: 09/17/16 06:28 Dose: 40 mg Losartan Potassium (Cozaar -) 25 mg PO DAILY [facility] Last Admin: 09/17/16 11:14 Dose: 25 mg Metolazone (Zaroxolyn -) 2.5 mg PO DAILY@1330 [facility] Last Admin: 09/16/16 14:08 Dose: 2.5 mg Durezol 0.05% Opth Drops - Patient Own Med 1 each OD BID [facility] Last Admin: 09/17/16 11:14 Dose: 1 each Spironolactone (Aldactone -) 25 mg PO DAILY [facility] Last Admin: 09/17/16 11:14 Dose: 25 mg Warfarin Sodium (Coumadin -) 2.5 mg PO DAILY@1800 [facility] Zolpidem Tartrate (Ambien -) 5 mg PO HS PRN Last Admin: 09/17/16 00:25 Dose: 5 mg - Objective Vital Signs: Vital Signs Temperature 99.9 F H 09/16/16 16:25 Pulse Rate 85 09/17/16 11:05 Respiratory Rate 20 09/16/16 16:25 Blood Pressure 138/59 09/16/16 16:25 O2 Sat by Pulse Oximetry (%) 99 09/17/16 11:05 Constitutional: Yes: Calm Cardiovascular: Yes: S1, S2 Respiratory: Yes: Diminished Gastrointestinal: Yes: Normal Bowel Sounds, Soft Edema: Yes Labs: CBC, BMP 09/15/16 06:30 09/17/16 07:59 INR, PTT INR 3.46 (0.82-1.09) H 09/17/16 07:59 Problem List - Problems (1) Anemia Code(s): D64.9 - ANEMIA, UNSPECIFIED Qualifiers: Anemia type: iron deficiency (2) CHF (congestive heart failure) Code(s): I50.9 - HEART FAILURE, UNSPECIFIED Qualifiers: Congestive heart failure type: diastolic Congestive heart failure chronicity: acute on chronic Qualified Code(s): I50.33 - Acute on chronic diastolic (congestive) heart failure (3) Elevated serum creatinine Code(s): R79.89 - OTHER SPECIFIED ABNORMAL FINDINGS OF BLOOD CHEMISTRY (4) Hepatic cirrhosis Code(s): K74.60 - UNSPECIFIED CIRRHOSIS OF LIVER Qualifiers: Hepatic cirrhosis type: unspecified hepatic cirrhosis Ascites presence : without ascites Qualified Code(s): K74.60 - Unspecified cirrhosis of liver (5) Rheumatic heart disease Code(s): I09.9 - RHEUMATIC HEART DISEASE, UNSPECIFIED (6) S/P AVR (aortic valve replacement) Code(s): Z95.2 - PRESENCE OF PROSTHETIC HEART VALVE (7) S/P MVR (mitral valve replacement) Code(s): Z95.2 - PRESENCE OF PROSTHETIC HEART VALVE (8) Shortness of breath Code(s): R06.02 - SHORTNESS OF BREATH Assessment/Plan (1) Anemia Code(s): D64.9 - ANEMIA, UNSPECIFIED Qualifiers: Anemia type: iron deficiency (2) CHF (congestive heart failure) Code(s): I50.9 - HEART FAILURE, UNSPECIFIED Qualifiers: Congestive heart failure type: diastolic Congestive heart failure chronicity: acute on chronic Qualified Code(s): I50.33 - Acute on chronic diastolic (congestive) heart failure (3) Elevated serum creatinine Code(s): R79.89 - OTHER SPECIFIED ABNORMAL FINDINGS OF BLOOD CHEMISTRY (4) Hepatic cirrhosis Code(s): K74.60 - UNSPECIFIED CIRRHOSIS OF LIVER Qualifiers: Hepatic cirrhosis type: unspecified hepatic cirrhosis Ascites presence : without ascites Qualified Code(s): K74.60 - Unspecified cirrhosis of liver (5) Rheumatic heart disease Code(s): I09.9 - RHEUMATIC HEART DISEASE, UNSPECIFIED (6) S/P AVR (aortic valve replacement) Code(s): Z95.2 - PRESENCE OF PROSTHETIC HEART VALVE (7) S/P MVR (mitral valve replacement) Code(s): Z95.2 - PRESENCE OF PROSTHETIC HEART VALVE (9) Shortness of breath Code(s): R06.02 - SHORTNESS OF BREATH Assessment/Plan 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 [facility]. GI FOLLOW UP APPRECIATED AGE AND COMORBID DISEASES WILL MAKE THIS DIFFICULT TO WORKUP. WILL DISCUSS WITH FAMILY AND ASK HOW AGGRESSIVE WORKUP WILL BE. MECHANICAL HEART VALVE -> NEED INR 3 - 3.5 PER CARDIO ENT CAUTERIZATION 2/2 EPISTAXIS GI ON CASE FOR H/O AVMs & BLEED RISK OOB TO CHAIR 02 SUPPORT DIURESIS WITH WEIGHT LOSS 5LBS SINCE YESTERDAY [employer]
[2016-09-17] MEDS: METOLAZONE 2.5 MG TABLET (FP) PO SCH (13:53)
--- NOTE | 2016-09-17 15:40 | PN ---
Progress Note (short form) - Note Progress Note: PULMONARY AWAKE/ALERT VSS/AFEBRILE ANICTERIC B/L POSTERIOR CRACKLES S1S2 IRREG/SYSTOLIC/DIASTOLIC MURMUR BS+ SOFT LESS EDEMA LABS/MEDS/NOTES/IMAGING REVIEWED IMP CHF VALVULAR HD S/P MVR,AVR,TVR HTN AFIB ACUTE ON CHRONIC KIDNEY INJURY H/O CIRRHOSIS H/O RHEUMATIC HEART DISEASE HEPATIC MASS PLAN CONTINUE LASIX,ALDACTONE SUPPLEMENTAL O2 DAILY WTS ANTICOAGULATION MONITOR LYTES,RENAL FUNCTION TO DECIDE RE WORKUP OF LIVER MASS Rena ORDAZ MD
[2016-09-17] MEDS: WARFARIN NA 2.5 MG TABLET (FP) PO SCH (18:24)
[2016-09-18] MEDS: FUROSEMIDE 40 MG/4 ML INJECTABLE VIAL IVPUSH SCH ×2 (06:00→14:18)
[2016-09-18 07:56] LABS: MEAN CELL VOLUME 87.8 fl (80-96); PLATELET COUNT 171 K/MM3 (134-434); RDW 16.2 % (11.6-15.6); WHITE BLOOD COUNT 4.1 K/mm3 (4.0-10.0)
[2016-09-18 08:08] LABS: INR 3.15 (0.82-1.09); PROTHROMBIN TIME (PATIENT) 35.5 SEC (9.98-11.88)
[2016-09-18 08:57] LABS: ALBUMIN 3.1 g/dl (3.4-5.0); BILIRUBIN,TOTAL 0.7 mg/dL (0.2-1.0); CALCIUM 8.6 mg/dL (8.5-10.1); CREATININE 1.2 mg/dL (0.55-1.02); TOT PROT 6.1 g/dl (6.4-8.2)
[2016-09-18] MEDS ORDERED: PT OWN MED DRAWER 7, Y5N ONE ×2 (09:16→20:44)
[2016-09-18] MEDS: LOSARTAN POTASSIUM 50 MG TABLET (FP) PO SCH (09:37)
[2016-09-18] MEDS: SPIRONOLACTONE 25 MG TABLET (FP) PO SCH (09:37)
[2016-09-18] MEDS: FERROUS SO4 325 MG TABLET (FP) PO SCH ×2 (09:37→21:12)
[2016-09-18] MEDS: BACITRACIN 30 GM TUBE TOPICAL OINTMENT TP SCH ×4 (09:38→21:13)
--- NOTE | 2016-09-18 10:32 | PN ---
Progress Note (short form) - Note Progress Note: PULMONARY Still with dyspnea with minimal exertion. Diuresing well. Denies chest pain, cough or palpitations. Last Vital Signs Temp Pulse Resp BP Pulse Ox 98 F 77 20 123/64 98 09/18/16 06:07 09/18/16 06:07 09/18/16 06:07 09/18/16 06:07 09/17/16 21:00 Gen: mildly tachypneic with speaking Heart: RRR Lung: bibasilar rales Abd: soft, nontender Ext: + edema CBC, BMP 09/18/16 06:00 09/18/16 06:00 Active Medications Acetaminophen (Tylenol -) 650 mg PO Q6H PRN PRN Reason: FEVER OR PAIN Albuterol Sulfate (Ventolin 0.083% Nebulizer Soln -) 1 amp NEB Q4H PRN PRN Reason: SHORT OF BREATH/WHEEZING Last Admin: 09/17/16 17:30 Dose: 1 amp Artificial Tears (Artificial Tears) 1 drop OD DAILY PRN PRN Reason: DRY EYES Bacitracin (Bacitracin -) 1 applic TP BID [facility] Last Admin: 09/18/16 09:38 Dose: 1 applic Bacitracin (Bacitracin -) 1 applic TP BID [facility] Last Admin: 09/18/16 09:39 Dose: 1 applic Ferrous Sulfate (Feosol -) 325 mg PO BID [facility] Last Admin: 09/18/16 09:37 Dose: 325 mg Furosemide (Lasix Injection -) 40 mg IVPUSH BID@0600,1400 [facility] Last Admin: 09/18/16 06:00 Dose: 40 mg Losartan Potassium (Cozaar -) 25 mg PO DAILY [facility] Last Admin: 09/18/16 09:37 Dose: 25 mg Metolazone (Zaroxolyn -) 2.5 mg PO DAILY@1330 [facility] Last Admin: 09/17/16 13:53 Dose: 2.5 mg Durezol 0.05% Opth Drops - Patient Own Med 1 each OD BID [facility] Last Admin: 09/17/16 21:47 Dose: 1 each Spironolactone (Aldactone -) 25 mg PO DAILY [facility] Last Admin: 09/18/16 09:37 Dose: 25 mg Warfarin Sodium (Coumadin -) 2.5 mg PO DAILY@1800 [facility] Last Admin: 09/17/16 18:24 Dose: 2.5 mg Zolpidem Tartrate (Ambien -) 5 mg PO HS PRN Last Admin: 09/17/16 21:46 Dose: 5 mg A/P Acute on Chronic LV Diastolic Heart Failure Pulmonary HTN s/p AVR/MVR Atrial Fibrillation Liver Cirrhosis r/o Hepatoma - continue lasix, aldactone, zaroxolyn - monitor urine output, creatinine - daily weights, I/Os - rate controlled - continue anticoagulation - O2 to keep SpO2 >90% - inhaled bronchodilators as needed
[2016-09-18] MEDS: OPTH OD SCH ×2 (10:33→21:12)
[2016-09-18] MEDS: DUREZOL 0.05% OD SCH ×2 (10:33→21:12)
--- NOTE | 2016-09-18 10:58 | PN ---
Progress Note, Physician Chief Complaint: CALM IN SAME MILD LABORED BREATHING MILD CONFUSION LOOKS JAUNDICE WALKING IN [place] WITH RW & PT ASSISTANCE - Current Medication List Current Medications: Active Medications Acetaminophen (Tylenol -) 650 mg PO Q6H PRN PRN Reason: FEVER OR PAIN Albuterol Sulfate (Ventolin 0.083% Nebulizer Soln -) 1 amp NEB Q4H PRN PRN Reason: SHORT OF BREATH/WHEEZING Last Admin: 09/17/16 17:30 Dose: 1 amp Artificial Tears (Artificial Tears) 1 drop OD DAILY PRN PRN Reason: DRY EYES Bacitracin (Bacitracin -) 1 applic TP BID [facility] Last Admin: 09/18/16 09:38 Dose: 1 applic Bacitracin (Bacitracin -) 1 applic TP BID [facility] Last Admin: 09/18/16 09:39 Dose: 1 applic Ferrous Sulfate (Feosol -) 325 mg PO BID [facility] Last Admin: 09/18/16 09:37 Dose: 325 mg Furosemide (Lasix Injection -) 40 mg IVPUSH BID@0600,1400 [facility] Last Admin: 09/18/16 06:00 Dose: 40 mg Losartan Potassium (Cozaar -) 25 mg PO DAILY [facility] Last Admin: 09/18/16 09:37 Dose: 25 mg Metolazone (Zaroxolyn -) 2.5 mg PO DAILY@1330 [facility] Last Admin: 09/17/16 13:53 Dose: 2.5 mg Durezol 0.05% Opth Drops - Patient Own Med 1 each OD BID [facility] Last Admin: 09/18/16 10:33 Dose: 1 each Spironolactone (Aldactone -) 25 mg PO DAILY [facility] Last Admin: 09/18/16 09:37 Dose: 25 mg Warfarin Sodium (Coumadin -) 2.5 mg PO DAILY@1800 [facility] Last Admin: 09/17/16 18:24 Dose: 2.5 mg Zolpidem Tartrate (Ambien -) 5 mg PO HS PRN Last Admin: 09/17/16 21:46 Dose: 5 mg - Objective Vital Signs: Vital Signs Temperature 98 F 09/18/16 06:07 Pulse Rate 77 09/18/16 06:07 Respiratory Rate 20 09/18/16 06:07 Blood Pressure 123/64 09/18/16 06:07 O2 Sat by Pulse Oximetry (%) 98 09/17/16 21:00 Constitutional: Yes: Calm Eyes: Yes: Sclera Icterus Cardiovascular: Yes: S2, S3 Respiratory: Yes: Diminished Gastrointestinal: Yes: Normal Bowel Sounds, Soft Edema: Yes Integumentary: Yes: Jaundice Labs: CBC, BMP 09/18/16 06:00 09/18/16 06:00 INR, PTT INR 3.15 (0.82-1.09) H 09/18/16 06:00 Problem List - Problems (1) Anemia Code(s): D64.9 - ANEMIA, UNSPECIFIED Qualifiers: Anemia type: iron deficiency (2) CHF (congestive heart failure) Code(s): I50.9 - HEART FAILURE, UNSPECIFIED Qualifiers: Congestive heart failure type: diastolic Congestive heart failure chronicity: acute on chronic Qualified Code(s): I50.33 - Acute on chronic diastolic (congestive) heart failure (3) Elevated serum creatinine Code(s): R79.89 - OTHER SPECIFIED ABNORMAL FINDINGS OF BLOOD CHEMISTRY (4) Hepatic cirrhosis Code(s): K74.60 - UNSPECIFIED CIRRHOSIS OF LIVER Qualifiers: Hepatic cirrhosis type: unspecified hepatic cirrhosis Ascites presence : without ascites Qualified Code(s): K74.60 - Unspecified cirrhosis of liver (5) Rheumatic heart disease Code(s): I09.9 - RHEUMATIC HEART DISEASE, UNSPECIFIED (6) S/P AVR (aortic valve replacement) Code(s): Z95.2 - PRESENCE OF PROSTHETIC HEART VALVE (7) S/P MVR (mitral valve replacement) Code(s): Z95.2 - PRESENCE OF PROSTHETIC HEART VALVE (8) Shortness of breath Code(s): R06.02 - SHORTNESS OF BREATH Assessment/Plan (1) Anemia Code(s): D64.9 - ANEMIA, UNSPECIFIED Qualifiers: Anemia type: iron deficiency HGB 7.4 FOBT NEG - pRBC IF HGB <7 (2) CHF (congestive heart failure) Code(s): I50.9 - HEART FAILURE, UNSPECIFIED Qualifiers: Congestive heart failure type: diastolic Congestive heart failure chronicity: acute on chronic Qualified Code(s): I50.33 - Acute on chronic diastolic (congestive) heart failure IV LASIX Cr 1.2 (3) Elevated serum creatinine Code(s): R79.89 - OTHER SPECIFIED ABNORMAL FINDINGS OF BLOOD CHEMISTRY (4) Hepatic cirrhosis Code(s): K74.60 - UNSPECIFIED CIRRHOSIS OF LIVER Qualifiers: Hepatic cirrhosis type: unspecified hepatic cirrhosis Ascites presence : without ascites Qualified Code(s): K74.60 - Unspecified cirrhosis of liver NEW JAUNDICE NOTICED - AMMONIA (5) Rheumatic heart disease Code(s): I09.9 - RHEUMATIC HEART DISEASE, UNSPECIFIED (6) S/P AVR (aortic valve replacement) Code(s): Z95.2 - PRESENCE OF PROSTHETIC HEART VALVE (7) S/P MVR (mitral valve replacement) Code(s): Z95.2 - PRESENCE OF PROSTHETIC HEART VALVE INR THERAPEUTIC HGB DROPPING (9) Shortness of breath Code(s): R06.02 - SHORTNESS OF BREATH Assessment/Plan 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 [facility] FOR W/U. GI FOLLOW UP APPRECIATED -> WILL DISCUSS WITH FAMILY AND ASK HOW AGGRESSIVE WORKUP WILL BE. MECHANICAL HEART VALVE -> NEED INR 3 - 3.5 PER CARDIO ENT CAUTERIZATION 2/2 EPISTAXIS GI ON CASE FOR H/O AVMs & BLEED RISK OOB TO CHAIR 02 SUPPORT DIURESIS WITH WEIGHT LOSS 5LBS SINCE YESTERDAY [employer] WORK[employer] FM
--- NOTE | 2016-09-18 12:23 | PN ---
Progress Note, Physician History of Present Illness: Pt seen and examined at bedside. She is awake and appears comfortable. She feels that her shortness of breath is slowly improving. - Current Medication List Current Medications: Active Medications Acetaminophen (Tylenol -) 650 mg PO Q6H PRN PRN Reason: FEVER OR PAIN Albuterol Sulfate (Ventolin 0.083% Nebulizer Soln -) 1 amp NEB Q4H PRN PRN Reason: SHORT OF BREATH/WHEEZING Last Admin: 09/17/16 17:30 Dose: 1 amp Artificial Tears (Artificial Tears) 1 drop OD DAILY PRN PRN Reason: DRY EYES Bacitracin (Bacitracin -) 1 applic TP BID [facility] Last Admin: 09/18/16 09:38 Dose: 1 applic Bacitracin (Bacitracin -) 1 applic TP BID [facility] Last Admin: 09/18/16 09:39 Dose: 1 applic Ferrous Sulfate (Feosol -) 325 mg PO BID [facility] Last Admin: 09/18/16 09:37 Dose: 325 mg Furosemide (Lasix Injection -) 40 mg IVPUSH BID@0600,1400 [facility] Last Admin: 09/18/16 06:00 Dose: 40 mg Losartan Potassium (Cozaar -) 25 mg PO DAILY [facility] Last Admin: 09/18/16 09:37 Dose: 25 mg Metolazone (Zaroxolyn -) 2.5 mg PO DAILY@1330 [facility] Last Admin: 09/17/16 13:53 Dose: 2.5 mg Durezol 0.05% Opth Drops - Patient Own Med 1 each OD BID [facility] Last Admin: 09/18/16 10:33 Dose: 1 each Spironolactone (Aldactone -) 25 mg PO DAILY [facility] Last Admin: 09/18/16 09:37 Dose: 25 mg Warfarin Sodium (Coumadin -) 2.5 mg PO DAILY@1800 [facility] Last Admin: 09/17/16 18:24 Dose: 2.5 mg Zolpidem Tartrate (Ambien -) 5 mg PO HS PRN Last Admin: 09/17/16 21:46 Dose: 5 mg - Objective Vital Signs: Vital Signs Temperature 98 F 09/18/16 06:07 Pulse Rate 69 09/18/16 11:44 Respiratory Rate 20 09/18/16 06:07 Blood Pressure 123/64 09/18/16 06:07 O2 Sat by Pulse Oximetry (%) 98 09/18/16 11:44 Constitutional: Yes: Calm Eyes: Yes: Conjunctiva Clear HENT: Yes: Atraumatic Neck: Yes: Supple Cardiovascular: Yes: Murmur, S1, S2 Respiratory: Yes: Diminished, On Nasal O2 Gastrointestinal: Yes: Soft Genitourinary: Yes: WNL Edema: Yes Edema: LLE: 2+, RLE: 2+ Neurological: Yes: Oriented Psychiatric: Yes: Oriented Labs: CBC, BMP 09/18/16 06:00 09/18/16 06:00 INR, PTT INR 3.15 (0.82-1.09) H 09/18/16 06:00 Problem List - Problems (1) Anemia Code(s): D64.9 - ANEMIA, UNSPECIFIED Qualifiers: Anemia type: iron deficiency (2) CHF (congestive heart failure) Code(s): I50.9 - HEART FAILURE, UNSPECIFIED Qualifiers: Congestive heart failure type: diastolic Congestive heart failure chronicity: acute on chronic Qualified Code(s): I50.33 - Acute on chronic diastolic (congestive) heart failure (3) Cholelithiasis Code(s): K80.20 - CALCULUS OF GALLBLADDER W/O CHOLECYSTITIS W/O OBSTRUCTION Qualifiers: Cholelithiasis location: gallbladder Cholecystitis presence: without cholecystitis Biliary obstruction: without biliary obstruction Qualified Code(s): K80.20 - Calculus of gallbladder without cholecystitis without obstruction (4) Hepatic cirrhosis Code(s): K74.60 - UNSPECIFIED CIRRHOSIS OF LIVER Qualifiers: Hepatic cirrhosis type: unspecified hepatic cirrhosis Ascites presence : without ascites Qualified Code(s): K74.60 - Unspecified cirrhosis of liver (5) S/P AVR (aortic valve replacement) Code(s): Z95.2 - PRESENCE OF PROSTHETIC HEART VALVE (6) S/P MVR (mitral valve replacement) Code(s): Z95.2 - PRESENCE OF PROSTHETIC HEART VALVE (8) Shortness of breath Code(s): R06.02 - SHORTNESS OF BREATH (9) RADHA (acute kidney injury) Code(s): N17.9 - ACUTE KIDNEY FAILURE, UNSPECIFIED Assessment/Plan Current Medications Generic Name Dose Route Start Last Admin Trade Name Freq PRN Reason Stop Dose Admin Acetaminophen 650 mg 09/05/16 20:01 Tylenol - PO Q6H PRN FEVER OR PAIN Albuterol Sulfate 1 amp 09/13/16 14:36 09/17/16 17:30 Ventolin 0.083% Nebulizer Soln - NEB 1 amp Q4H PRN Administration SHORT OF BREATH/WHEEZING Artificial Tears 1 drop 09/05/16 20:04 Artificial Tears OD DAILY PRN DRY EYES Bacitracin 1 applic 09/10/16 22:00 09/18/16 09:38 Bacitracin - TP 1 applic BID [facility] Administration Bacitracin 1 applic 09/14/16 22:00 09/18/16 09:39 Bacitracin - TP 1 applic BID [facility] Administration Ferrous Sulfate 325 mg 09/05/16 22:00 09/18/16 09:37 Feosol - PO 325 mg BID [facility] Administration Furosemide 40 mg 09/06/16 14:00 09/18/16 06:00 Lasix Injection - IVPUSH 40 mg BID@0600,1400 [facility] Administration Losartan Potassium 25 mg 09/06/16 10:00 09/18/16 09:37 Cozaar - PO 25 mg DAILY [facility] Administration Metolazone 2.5 mg 09/11/16 13:30 09/17/16 13:53 Zaroxolyn - PO 2.5 mg DAILY@1330 [facility] Administration Durezol 0.05% Opth 1 each 09/07/16 22:00 09/18/16 10:33 Drops - Patient Own OD 1 each Med BID [facility] Administration Spironolactone 25 mg 09/09/16 10:15 09/18/16 09:37 Aldactone - PO 25 mg DAILY [facility] Administration Warfarin Sodium 2.5 mg 09/17/16 18:00 09/17/16 18:24 Coumadin - PO 2.5 mg DAILY@1800 [facility] Administration Zolpidem Tartrate 5 mg 09/17/16 00:26 09/17/16 21:46 Ambien - PO 5 mg HS PRN Administration Impression 1. RADHA 2. aortic valve replacement 3. mitral valve replacement 4. tricuspid valve replacement 5. CHF 6. a-fib 7. anemia 8. hx GI bleed 9. HTN 10. liver cirrhosis 11. CKD Plan - cont with diuretics - repeat labs in am - GI workup is in progress - cont oxygen and monitor pulse ox - may need to settle for higher creatinine to keep pt euvolemic - will need close renal follow up while on diuretics - will follow Dr Bo
[2016-09-18] MEDS: METOLAZONE 2.5 MG TABLET (FP) PO SCH (13:26)
[2016-09-18 14:29] LABS: HYPOCHROMIA 2+; TARGET CELLS 1+
--- NOTE | 2016-09-18 15:03 | PN ---
Progress Note, Physician Chief Complaint: Dyspnea persists with pedal edema History of Present Illness: Patient was seen and examined. Awake and alert. Chart was reviewed Denies chest pain or palpitations Dyspnea on exertion Pedal edema persists Complains of diarrhea - Current Medication List Current Medications: Active Medications Acetaminophen (Tylenol -) 650 mg PO Q6H PRN PRN Reason: FEVER OR PAIN Albuterol Sulfate (Ventolin 0.083% Nebulizer Soln -) 1 amp NEB Q4H PRN PRN Reason: SHORT OF BREATH/WHEEZING Last Admin: 09/17/16 17:30 Dose: 1 amp Artificial Tears (Artificial Tears) 1 drop OD DAILY PRN PRN Reason: DRY EYES Bacitracin (Bacitracin -) 1 applic TP BID [facility] Last Admin: 09/18/16 09:38 Dose: 1 applic Bacitracin (Bacitracin -) 1 applic TP BID [facility] Last Admin: 09/18/16 09:39 Dose: 1 applic Ferrous Sulfate (Feosol -) 325 mg PO BID [facility] Last Admin: 09/18/16 09:37 Dose: 325 mg Furosemide (Lasix Injection -) 40 mg IVPUSH BID@0600,1400 [facility] Last Admin: 09/18/16 14:18 Dose: 40 mg Losartan Potassium (Cozaar -) 25 mg PO DAILY [facility] Last Admin: 09/18/16 09:37 Dose: 25 mg Metolazone (Zaroxolyn -) 2.5 mg PO DAILY@1330 [facility] Last Admin: 09/18/16 13:26 Dose: 2.5 mg Durezol 0.05% Opth Drops - Patient Own Med 1 each OD BID [facility] Last Admin: 09/18/16 10:33 Dose: 1 each Spironolactone (Aldactone -) 25 mg PO DAILY [facility] Last Admin: 09/18/16 09:37 Dose: 25 mg Warfarin Sodium (Coumadin -) 2.5 mg PO DAILY@1800 [facility] Last Admin: 09/17/16 18:24 Dose: 2.5 mg Zolpidem Tartrate (Ambien -) 5 mg PO HS PRN Last Admin: 09/17/16 21:46 Dose: 5 mg - Objective Vital Signs: Vital Signs Temperature 98.4 F 09/18/16 09:00 Pulse Rate 69 09/18/16 11:44 Respiratory Rate 24 09/18/16 09:00 Blood Pressure 100/44 12/15/16 09:00 O2 Sat by Pulse Oximetry (%) 98 09/18/16 11:44 Neck: Yes: Supple Cardiovascular: Yes: Pulse Irregular, Murmur (Soft decrescendo SM and diastolic murmur), S1, S2 Respiratory: Yes: Diminished Gastrointestinal: Yes: Normal Bowel Sounds, Soft. No: Tenderness Edema: Yes Edema: LLE: 1+, RLE: 1+ Additional Findings/Remarks: - Review of Systems Constitutional: denies: Chills Cardiovascular: reports: Shortness of Breath. denies: Chest Pain, Palpitations Respiratory: reports: SOB, SOB on Exertion. denies: Cough, Hemoptysis, Orthopnea, PND Gastrointestinal: denies: Abdominal Pain, Constipation, (+) Diarrhea, denies: Melena, Nausea, Rectal Bleeding, Vomiting Musculoskeletal: denies: Joint Pain Neurological: denies: Dizziness, Headache, Seizure, Syncope Labs: CBC, BMP 09/18/16 06:00 09/18/16 06:00 INR, PTT INR 3.15 (0.82-1.09) H 09/18/16 06:00 Problem List - Problems (1) CHF (congestive heart failure) Code(s): I50.9 - HEART FAILURE, UNSPECIFIED Qualifiers: Congestive heart failure type: diastolic Congestive heart failure chronicity: acute on chronic Qualified Code(s): I50.33 - Acute on chronic diastolic (congestive) heart failure (2) Shortness of breath Code(s): R06.02 - SHORTNESS OF BREATH (3) S/P MVR (mitral valve replacement) Code(s): Z95.2 - PRESENCE OF PROSTHETIC HEART VALVE (4) Rheumatic heart disease Code(s): I09.9 - RHEUMATIC HEART DISEASE, UNSPECIFIED (5) S/P AVR (aortic valve replacement) Code(s): Z95.2 - PRESENCE OF PROSTHETIC HEART VALVE (7) Anemia Code(s): D64.9 - ANEMIA, UNSPECIFIED Qualifiers: Anemia type: iron deficiency (8) Hepatic cirrhosis Code(s): K74.60 - UNSPECIFIED CIRRHOSIS OF LIVER Qualifiers: Hepatic cirrhosis type: unspecified hepatic cirrhosis Ascites presence : without ascites Qualified Code(s): K74.60 - Unspecified cirrhosis of liver Assessment/Plan 1. Clinical presentation c/w acute on chronic LV diastolic failure with NYHA II- III classification heart failure 2. Post MVR and AVR (mechanical prosthesis) with history of rheumatic heart disease 3. Post TVR (bioprosthesis) with moderate tricuspid regurgitation and severe pulmonary hypertension 4. Permanent atrial fibrillation 5. Anemia 6. History of hepatic cirrhosis and cholelithiasis 7. Hyponatremia PLAN: 1. Continue IV Lasix 40 mg BID as tolerated and monitor renal function and electrolytes. Monitor I/Os. Patient is also on Spironolactone and Zaroxolyn for added diuresis. 2. Continue Coumadin as per INR - INR 3.15 3. Continue Cozaar as tolerated. Currently not on beta yuly and held due to history of bradycardia Further plans are to follow Elio Barroso MD
[2016-09-18] MEDS: WARFARIN NA 2.5 MG TABLET (FP) PO SCH (18:11)
[2016-09-18] MEDS: ZOLPIDEM TARTRATE 5 MG TABLET PO PRN (22:14)
[2016-09-19] MEDS: FUROSEMIDE 40 MG/4 ML INJECTABLE VIAL IVPUSH SCH ×2 (06:09→14:41)
[2016-09-19 07:34] LABS: MCH 29.4 pg (25.7-33.7); MEAN PLT VOLUME 8.9 fl (7.5-11.1); PLATELET COUNT 178 K/MM3 (134-434); RDW 16.9 % (11.6-15.6); WHITE BLOOD COUNT 4.5 K/mm3 (4.0-10.0)
[2016-09-19 08:39] LABS: ALBUMIN 3.5 g/dl (3.4-5.0); BILIRUBIN,TOTAL 0.9 mg/dL (0.2-1.0); CALCIUM 9.1 mg/dL (8.5-10.1); CREATININE 1.2 mg/dL (0.55-1.02); TOT PROT 6.8 g/dl (6.4-8.2)
[2016-09-19] MEDS ORDERED: PT OWN MED DRAWER 7, Y5N ONE ×2 (09:19→13:26)
[2016-09-19] MEDS: SPIRONOLACTONE 25 MG TABLET (FP) PO SCH (10:00)
[2016-09-19] MEDS: BACITRACIN 30 GM TUBE TOPICAL OINTMENT TP SCH ×3 (10:00→22:23)
[2016-09-19] MEDS: OPTH OD SCH ×2 (10:01→22:27)
[2016-09-19] MEDS: DUREZOL 0.05% OD SCH ×2 (10:01→22:27)
[2016-09-19] MEDS: FERROUS SO4 325 MG TABLET (FP) PO SCH ×2 (10:01→22:24)
[2016-09-19] MEDS: LOSARTAN POTASSIUM 50 MG TABLET (FP) PO SCH (10:01)
[2016-09-19] MEDS: ALBUTEROL SO4 0.083% IH SOL 2.5 MG/3 ML VIAL.NEB. NEB PRN (10:50)
--- NOTE | 2016-09-19 12:37 | PN ---
Progress Note, Physician History of Present Illness: Still dyspneic with minimal exertion. LE edema, ascites slowly improving with diuresis and compression therapy. - Current Medication List Current Medications: Active Medications Acetaminophen (Tylenol -) 650 mg PO Q6H PRN PRN Reason: FEVER OR PAIN Albuterol Sulfate (Ventolin 0.083% Nebulizer Soln -) 1 amp NEB Q4H PRN PRN Reason: SHORT OF BREATH/WHEEZING Last Admin: 09/19/16 10:50 Dose: 1 amp Artificial Tears (Artificial Tears) 1 drop OD DAILY PRN PRN Reason: DRY EYES Bacitracin (Bacitracin -) 1 applic TP BID [facility] Last Admin: 09/19/16 10:00 Dose: 1 applic Bacitracin (Bacitracin -) 1 applic TP BID [facility] Last Admin: 09/19/16 10:00 Dose: 1 applic Ferrous Sulfate (Feosol -) 325 mg PO BID [facility] Last Admin: 09/19/16 10:01 Dose: 325 mg Furosemide (Lasix Injection -) 40 mg IVPUSH BID@0600,1400 [facility] Last Admin: 09/19/16 06:09 Dose: 40 mg Losartan Potassium (Cozaar -) 25 mg PO DAILY [facility] Last Admin: 09/19/16 10:01 Dose: 25 mg Metolazone (Zaroxolyn -) 2.5 mg PO DAILY@1330 [facility] Last Admin: 09/18/16 13:26 Dose: 2.5 mg Durezol 0.05% Opth Drops - Patient Own Med 1 each OD BID [facility] Last Admin: 09/19/16 10:01 Dose: 1 each Spironolactone (Aldactone -) 25 mg PO DAILY [facility] Last Admin: 09/19/16 10:00 Dose: 25 mg Warfarin Sodium (Coumadin -) 2.5 mg PO DAILY@1800 [facility] Last Admin: 09/18/16 18:11 Dose: 2.5 mg Zolpidem Tartrate (Ambien -) 5 mg PO HS PRN Last Admin: 09/18/16 22:14 Dose: 5 mg - Objective Vital Signs: Vital Signs Temperature 98 F 09/19/16 10:22 Pulse Rate 76 09/19/16 11:30 Respiratory Rate 22 09/19/16 10:22 Blood Pressure 124/50 09/19/16 10:22 O2 Sat by Pulse Oximetry (%) 98 09/19/16 11:30 Constitutional: Yes: No Distress, Calm, Thin Neck: Yes: Supple Cardiovascular: Yes: Pulse Irregular, Murmur (2/6 SM), Other (Logan mechanical valve sounds) Respiratory: Yes: Regular, Diminished, On Nasal O2, SOB on Exertion Gastrointestinal: Yes: Normal Bowel Sounds, Soft Edema: Yes Edema: LLE: Trace, RLE: Trace Labs: CBC, BMP 09/19/16 07:22 09/19/16 07:22 INR, PTT INR 3.15 (0.82-1.09) H 09/18/16 06:00 Problem List - Problems (1) CHF (congestive heart failure) Code(s): I50.9 - HEART FAILURE, UNSPECIFIED Qualifiers: Congestive heart failure type: diastolic Congestive heart failure chronicity: acute on chronic Qualified Code(s): I50.33 - Acute on chronic diastolic (congestive) heart failure (2) Rheumatic heart disease Code(s): I09.9 - RHEUMATIC HEART DISEASE, UNSPECIFIED (3) S/P AVR (aortic valve replacement) Code(s): Z95.2 - PRESENCE OF PROSTHETIC HEART VALVE (4) S/P MVR (mitral valve replacement) Code(s): Z95.2 - PRESENCE OF PROSTHETIC HEART VALVE (6) Shortness of breath Code(s): R06.02 - SHORTNESS OF BREATH (7) Permanent atrial fibrillation Code(s): I48.2 - CHRONIC ATRIAL FIBRILLATION (8) Pulmonary hypertension Code(s): I27.2 - OTHER SECONDARY PULMONARY HYPERTENSION (9) Venous stasis dermatitis of both lower extremities Code(s): I83.11 - VARICOSE VEINS OF RIGHT LOWER EXTREMITY WITH INFLAMMATION I83.12 - VARICOSE VEINS OF LEFT LOWER EXTREMITY WITH INFLAMMATION (10) Cholelithiasis Code(s): K80.20 - CALCULUS OF GALLBLADDER W/O CHOLECYSTITIS W/O OBSTRUCTION Qualifiers: Cholelithiasis location: gallbladder Cholecystitis presence: without cholecystitis Biliary obstruction: without biliary obstruction Qualified Code(s): K80.20 - Calculus of gallbladder without cholecystitis without obstruction (11) Hepatic cirrhosis Code(s): K74.60 - UNSPECIFIED CIRRHOSIS OF LIVER Qualifiers: Hepatic cirrhosis type: unspecified hepatic cirrhosis Ascites presence : without ascites Qualified Code(s): K74.60 - Unspecified cirrhosis of liver (12) Hepatocellular carcinoma Code(s): C22.0 - LIVER CELL CARCINOMA Assessment/Plan 09/09/2016 Echo: Normal LV size and fxn with mild cLVH, severe DELBERT, mech AVR, MVR , bio TVR, mod TR, RVSP>60 mmHg, mild KS 09/14/2016 Abd U/S: Ascites, cirrhosis, cholelithiasis, 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 Clinical presentation c/w acute on chronic LV diastolic failure with NYHA II- III classification heart failure 2. Post MVR and AVR (mechanical prosthesis) with history of rheumatic heart disease and therapeutic INR 3. Post TVR (bioprosthesis) with moderate tricuspid regurgitation and severe pulmonary hypertension 4. Permanent atrial fibrillation 5. Anemia 6. History of hepatic cirrhosis, cholelithiasis and elevated AFP, suspect left lobe HCC 7. Hyponatremia 8. Left epistaxis s/p cautery PLAN: 1. Continue Lasix IV 40 mg BID with extra dose today, increase Spironolactone 25 bid and Zaroxolyn 2.5 qd with monitor diuretic response, renal function and electrolytes. Would likely use Demadex as outpatient 2. Continue Coumadin per INR 3.0-3.5 3. Continue Cozaar 25 qd. Currently not on beta yuly and held due to history of bradycardia 4. GI f/u for liver mass planned at [facility] 5. Wrap legs, BD, O2 to maintain saO2
[2016-09-19 12:41] LABS: PLATELET ESTIMATE ADEQUATE (NORMAL)
[2016-09-19 12:42] LABS: ANISOCYTOSIS 1+; HYPOCHROMIA 2+; MICROCYTOSIS 1+; OVALOCYTES 1+; PLATELET COMMENT2 NO CLUMPING NOTED; POIKILOCYTOSIS 2+; TARGET CELLS 2+
[2016-09-19] MEDS ORDERED: FUROSEMIDE 40 MG/4 ML INJECTABLE VIAL IVPB ONE ×2 (13:05→18:00)
[2016-09-19] MEDS: METOLAZONE 2.5 MG TABLET (FP) PO SCH (14:05)
[2016-09-19 14:52] LABS: INR 2.91 (0.82-1.09); PROTHROMBIN TIME (PATIENT) 32.7 SEC (9.98-11.88)
--- NOTE | 2016-09-19 15:05 | PN ---
Progress Note, Physician History of Present Illness: Pt seen and examined at bedside. She still complains of shortness of breath. - Current Medication List Current Medications: Active Medications Acetaminophen (Tylenol -) 650 mg PO Q6H PRN PRN Reason: FEVER OR PAIN Albuterol Sulfate (Ventolin 0.083% Nebulizer Soln -) 1 amp NEB Q4H PRN PRN Reason: SHORT OF BREATH/WHEEZING Last Admin: 09/19/16 10:50 Dose: 1 amp Artificial Tears (Artificial Tears) 1 drop OD DAILY PRN PRN Reason: DRY EYES Bacitracin (Bacitracin -) 1 applic TP BID [facility] Last Admin: 09/19/16 10:00 Dose: 1 applic Bacitracin (Bacitracin -) 1 applic TP BID [facility] Last Admin: 09/19/16 10:00 Dose: 1 applic Ferrous Sulfate (Feosol -) 325 mg PO BID [facility] Last Admin: 09/19/16 10:01 Dose: 325 mg Furosemide (Lasix Injection -) 40 mg IVPUSH BID@0600,1400 [facility] Last Admin: 09/19/16 14:41 Dose: 40 mg Furosemide (Lasix Injection -) 40 mg IVPB ONCE ONE Stop: 09/19/16 18:01 Losartan Potassium (Cozaar -) 25 mg PO DAILY [facility] Last Admin: 09/19/16 10:01 Dose: 25 mg Metolazone (Zaroxolyn -) 2.5 mg PO DAILY@1330 [facility] Last Admin: 09/19/16 14:05 Dose: 2.5 mg Durezol 0.05% Opth Drops - Patient Own Med 1 each OD BID [facility] Last Admin: 09/19/16 10:01 Dose: 1 each Spironolactone (Aldactone -) 25 mg PO DAILY [facility] Last Admin: 09/19/16 10:00 Dose: 25 mg Warfarin Sodium (Coumadin -) 2.5 mg PO DAILY@1800 [facility] Last Admin: 09/18/16 18:11 Dose: 2.5 mg Zolpidem Tartrate (Ambien -) 5 mg PO HS PRN Last Admin: 09/18/16 22:14 Dose: 5 mg - Objective Vital Signs: Vital Signs Temperature 98.6 F 09/19/16 14:09 Pulse Rate 64 09/19/16 14:09 Respiratory Rate 18 12/16/16 14:09 Blood Pressure 124/52 12/16/16 14:09 O2 Sat by Pulse Oximetry (%) 98 09/19/16 11:30 Constitutional: Yes: Calm Eyes: Yes: Conjunctiva Clear HENT: Yes: Atraumatic Cardiovascular: Yes: Pulse Irregular, Murmur, S1, S2 Respiratory: Yes: Diminished, On Nasal O2 Gastrointestinal: Yes: Soft Genitourinary: Yes: WNL Musculoskeletal: Yes: WNL Edema: Yes Neurological: Yes: Oriented Psychiatric: Yes: Oriented Labs: CBC, BMP 09/19/16 07:22 09/19/16 07:22 INR, PTT INR 2.91 (0.82-1.09) H 09/19/16 13:43 Problem List - Problems (1) Anemia Code(s): D64.9 - ANEMIA, UNSPECIFIED Qualifiers: Anemia type: iron deficiency (2) CHF (congestive heart failure) Code(s): I50.9 - HEART FAILURE, UNSPECIFIED Qualifiers: Congestive heart failure type: diastolic Congestive heart failure chronicity: acute on chronic Qualified Code(s): I50.33 - Acute on chronic diastolic (congestive) heart failure (3) Cholelithiasis Code(s): K80.20 - CALCULUS OF GALLBLADDER W/O CHOLECYSTITIS W/O OBSTRUCTION Qualifiers: Cholelithiasis location: gallbladder Cholecystitis presence: without cholecystitis Biliary obstruction: without biliary obstruction Qualified Code(s): K80.20 - Calculus of gallbladder without cholecystitis without obstruction (4) Hepatic cirrhosis Code(s): K74.60 - UNSPECIFIED CIRRHOSIS OF LIVER Qualifiers: Hepatic cirrhosis type: unspecified hepatic cirrhosis Ascites presence : without ascites Qualified Code(s): K74.60 - Unspecified cirrhosis of liver (5) S/P AVR (aortic valve replacement) Code(s): Z95.2 - PRESENCE OF PROSTHETIC HEART VALVE (6) S/P MVR (mitral valve replacement) Code(s): Z95.2 - PRESENCE OF PROSTHETIC HEART VALVE (8) Shortness of breath Code(s): R06.02 - SHORTNESS OF BREATH (9) RADHA (acute kidney injury) Code(s): N17.9 - ACUTE KIDNEY FAILURE, UNSPECIFIED Assessment/Plan Current Medications Generic Name Dose Route Start Last Admin Trade Name Freq PRN Reason Stop Dose Admin Acetaminophen 650 mg 09/05/16 20:01 Tylenol - PO Q6H PRN FEVER OR PAIN Albuterol Sulfate 1 amp 09/13/16 14:36 09/19/16 10:50 Ventolin 0.083% Nebulizer Soln - NEB 1 amp Q4H PRN Administration SHORT OF BREATH/WHEEZING Artificial Tears 1 drop 09/05/16 20:04 Artificial Tears OD DAILY PRN DRY EYES Bacitracin 1 applic 09/10/16 22:00 09/19/16 10:00 Bacitracin - TP 1 applic BID [facility] Administration Bacitracin 1 applic 09/14/16 22:00 09/19/16 10:00 Bacitracin - TP 1 applic BID [facility] Administration Ferrous Sulfate 325 mg 09/05/16 22:00 09/19/16 10:01 Feosol - PO 325 mg BID [facility] Administration Furosemide 40 mg 09/06/16 14:00 09/19/16 14:41 Lasix Injection - IVPUSH 40 mg BID@0600,1400 [facility] Administration Furosemide 40 mg 09/19/16 18:00 Lasix Injection - IVPB 09/19/16 18:01 ONCE ONE Losartan Potassium 25 mg 09/06/16 10:00 09/19/16 10:01 Cozaar - PO 25 mg DAILY [facility] Administration Metolazone 2.5 mg 09/11/16 13:30 09/19/16 14:05 Zaroxolyn - PO 2.5 mg DAILY@1330 [facility] Administration Durezol 0.05% Opth 1 each 09/07/16 22:00 09/19/16 10:01 Drops - Patient Own OD 1 each Med BID [facility] Administration Spironolactone 25 mg 09/09/16 10:15 09/19/16 10:00 Aldactone - PO 25 mg DAILY [facility] Administration Warfarin Sodium 2.5 mg 09/17/16 18:00 09/18/16 18:11 Coumadin - PO 2.5 mg DAILY@1800 [facility] Administration Zolpidem Tartrate 5 mg 09/17/16 00:26 09/18/16 22:14 Ambien - PO 5 mg HS PRN Administration Impression 1. RADHA 2. aortic valve replacement 3. mitral valve replacement 4. tricuspid valve replacement 5. CHF 6. a-fib 7. anemia 8. hx GI bleed 9. HTN 10. liver cirrhosis 11. CKD Plan - monitor renal function closely on diuretics - GI workup is in progress - cont oxygen and monitor pulse ox, pt started walking with AL - may need to settle for higher creatinine to keep pt euvolemic - monitor INR - will follow Dr Bo
--- NOTE | 2016-09-19 15:20 | PN ---
Progress Note, Physician Chief Complaint: AWAKE ALERT +DYSPNEA DISCUSSING WITH PATIENT'S DAUGHTER SYED PANIAGUA OPTIONS OF LIVER TREATMENT AT [facility]. STATE OF HER MOTHER'S CONDITION REVIEWED WELL LABS/CHART - Current Medication List Current Medications: Active Medications Acetaminophen (Tylenol -) 650 mg PO Q6H PRN PRN Reason: FEVER OR PAIN Albuterol Sulfate (Ventolin 0.083% Nebulizer Soln -) 1 amp NEB Q4H PRN PRN Reason: SHORT OF BREATH/WHEEZING Last Admin: 09/19/16 10:50 Dose: 1 amp Artificial Tears (Artificial Tears) 1 drop OD DAILY PRN PRN Reason: DRY EYES Bacitracin (Bacitracin -) 1 applic TP BID [facility] Last Admin: 09/19/16 10:00 Dose: 1 applic Bacitracin (Bacitracin -) 1 applic TP BID [facility] Last Admin: 09/19/16 10:00 Dose: 1 applic Ferrous Sulfate (Feosol -) 325 mg PO BID [facility] Last Admin: 09/19/16 10:01 Dose: 325 mg Furosemide (Lasix Injection -) 40 mg IVPUSH BID@0600,1400 [facility] Last Admin: 09/19/16 14:41 Dose: 40 mg Furosemide (Lasix Injection -) 40 mg IVPB ONCE ONE Stop: 09/19/16 18:01 Losartan Potassium (Cozaar -) 25 mg PO DAILY [facility] Last Admin: 09/19/16 10:01 Dose: 25 mg Durezol 0.05% Opth Drops - Patient Own Med 1 each OD BID [facility] Last Admin: 09/19/16 10:01 Dose: 1 each Spironolactone (Aldactone -) 25 mg PO DAILY [facility] Last Admin: 09/19/16 10:00 Dose: 25 mg Warfarin Sodium (Coumadin -) 2 mg PO ONCE@1800 ONE Stop: 09/19/16 18:01 Zolpidem Tartrate (Ambien -) 5 mg PO HS PRN Last Admin: 09/18/16 22:14 Dose: 5 mg - Objective Vital Signs: Vital Signs Temperature 98.6 F 09/19/16 14:09 Pulse Rate 64 09/19/16 14:09 Respiratory Rate 18 09/19/16 14:09 Blood Pressure 124/52 09/19/16 14:09 O2 Sat by Pulse Oximetry (%) 98 09/19/16 11:30 Constitutional: Yes: Moderate Distress Eyes: Yes: WNL HENT: Yes: WNL Neck: Yes: WNL Cardiovascular: Yes: Pulse Irregular, Murmur Respiratory: Yes: Poor Air Entry, SOB on Exertion Gastrointestinal: Yes: WNL Extremities: Yes: Other Edema: Yes Edema: LLE: 2+, RLE: 2+ Peripheral Pulses WNL: Yes Integumentary: Yes: Venous Stasis Changes Wound/Incision: Yes: Dressing Dry and Intact Neurological: Yes: WNL ...Motor Strength: WNL Psychiatric: Yes: WNL Labs: CBC, BMP 09/19/16 07:22 09/19/16 07:22 INR, PTT INR 2.91 (0.82-1.09) H 09/19/16 13:43 Problem List - Problems (1) Anemia Code(s): D64.9 - ANEMIA, UNSPECIFIED Qualifiers: Anemia type: iron deficiency (2) CHF (congestive heart failure) Code(s): I50.9 - HEART FAILURE, UNSPECIFIED Qualifiers: Congestive heart failure type: diastolic Congestive heart failure chronicity: acute on chronic Qualified Code(s): I50.33 - Acute on chronic diastolic (congestive) heart failure (3) Elevated serum creatinine Code(s): R79.89 - OTHER SPECIFIED ABNORMAL FINDINGS OF BLOOD CHEMISTRY (4) Hepatic cirrhosis Code(s): K74.60 - UNSPECIFIED CIRRHOSIS OF LIVER Qualifiers: Hepatic cirrhosis type: unspecified hepatic cirrhosis Ascites presence : without ascites Qualified Code(s): K74.60 - Unspecified cirrhosis of liver (5) Rheumatic heart disease Code(s): I09.9 - RHEUMATIC HEART DISEASE, UNSPECIFIED (6) S/P AVR (aortic valve replacement) Code(s): Z95.2 - PRESENCE OF PROSTHETIC HEART VALVE (7) S/P MVR (mitral valve replacement) Code(s): Z95.2 - PRESENCE OF PROSTHETIC HEART VALVE (9) Shortness of breath Code(s): R06.02 - SHORTNESS OF BREATH Assessment/Plan CONDITION AND SEVERITY OF PATIENT CONDITION DISCUSSED WITH DAUGHTER DIURESIS WITH LASIX/ALDACTONE/ZAROXELYN 02 SUPPORT CHF PROTOCOL WEIGHTS AND FLUID RESTRICTIONS
--- NOTE | 2016-09-19 15:56 | PN ---
Progress Note, Physician History of Present Illness: [id number] alert,dyspneic at rest,-cp - Current Medication List Current Medications: Active Medications Acetaminophen (Tylenol -) 650 mg PO Q6H PRN PRN Reason: FEVER OR PAIN Albuterol Sulfate (Ventolin 0.083% Nebulizer Soln -) 1 amp NEB Q4H PRN PRN Reason: SHORT OF BREATH/WHEEZING Last Admin: 09/19/16 10:50 Dose: 1 amp Artificial Tears (Artificial Tears) 1 drop OD DAILY PRN PRN Reason: DRY EYES Bacitracin (Bacitracin -) 1 applic TP BID [facility] Last Admin: 09/19/16 10:00 Dose: 1 applic Bacitracin (Bacitracin -) 1 applic TP BID [facility] Last Admin: 09/19/16 10:00 Dose: 1 applic Ferrous Sulfate (Feosol -) 325 mg PO BID [facility] Last Admin: 09/19/16 10:01 Dose: 325 mg Furosemide (Lasix Injection -) 40 mg IVPUSH BID@0600,1400 [facility] Last Admin: 09/19/16 14:41 Dose: 40 mg Furosemide (Lasix Injection -) 40 mg IVPB ONCE ONE Stop: 09/19/16 18:01 Losartan Potassium (Cozaar -) 25 mg PO DAILY [facility] Last Admin: 09/19/16 10:01 Dose: 25 mg Metolazone (Zaroxolyn -) 5 mg PO DAILY [facility] Durezol 0.05% Opth Drops - Patient Own Med 1 each OD BID [facility] Last Admin: 09/19/16 10:01 Dose: 1 each Spironolactone (Aldactone -) 25 mg PO DAILY [facility] Last Admin: 09/19/16 10:00 Dose: 25 mg Warfarin Sodium (Coumadin -) 2 mg PO ONCE@1800 ONE Stop: 09/19/16 18:01 Zolpidem Tartrate (Ambien -) 5 mg PO HS PRN Last Admin: 09/18/16 22:14 Dose: 5 mg - Objective Vital Signs: Vital Signs Temperature 98.6 F 09/19/16 14:09 Pulse Rate 64 09/19/16 14:09 Respiratory Rate 18 09/19/16 14:09 Blood Pressure 124/52 09/19/16 14:09 O2 Sat by Pulse Oximetry (%) 98 09/19/16 11:30 Constitutional: Yes: Calm, Other (dyspneic) Eyes: Yes: WNL HENT: Yes: WNL Neck: Yes: Supple Cardiovascular: Yes: Pulse Irregular, S1, S2 Respiratory: Yes: Rales (bilateral rales 1/3 up) Gastrointestinal: Yes: Normal Bowel Sounds, Soft Extremities: Yes: WNL Edema: Yes Labs: CBC, BMP 09/19/16 07:22 09/19/16 07:22 INR, PTT INR 2.91 (0.82-1.09) H 09/19/16 13:43 Problem List - Problems (1) RADHA (acute kidney injury) Code(s): N17.9 - ACUTE KIDNEY FAILURE, UNSPECIFIED (2) Anemia Code(s): D64.9 - ANEMIA, UNSPECIFIED Qualifiers: Anemia type: iron deficiency (3) CHF (congestive heart failure) Code(s): I50.9 - HEART FAILURE, UNSPECIFIED Qualifiers: Congestive heart failure type: diastolic Congestive heart failure chronicity: acute on chronic Qualified Code(s): I50.33 - Acute on chronic diastolic (congestive) heart failure (4) Cholelithiasis Code(s): K80.20 - CALCULUS OF GALLBLADDER W/O CHOLECYSTITIS W/O OBSTRUCTION Qualifiers: Cholelithiasis location: gallbladder Cholecystitis presence: without cholecystitis Biliary obstruction: without biliary obstruction Qualified Code(s): K80.20 - Calculus of gallbladder without cholecystitis without obstruction (5) Elevated serum creatinine Code(s): R79.89 - OTHER SPECIFIED ABNORMAL FINDINGS OF BLOOD CHEMISTRY (6) Hepatic cirrhosis Code(s): K74.60 - UNSPECIFIED CIRRHOSIS OF LIVER Qualifiers: Hepatic cirrhosis type: unspecified hepatic cirrhosis Ascites presence : without ascites Qualified Code(s): K74.60 - Unspecified cirrhosis of liver (7) Rheumatic heart disease Code(s): I09.9 - RHEUMATIC HEART DISEASE, UNSPECIFIED (8) S/P AVR (aortic valve replacement) Code(s): Z95.2 - PRESENCE OF PROSTHETIC HEART VALVE (9) S/P MVR (mitral valve replacement) Code(s): Z95.2 - PRESENCE OF PROSTHETIC HEART VALVE (11) Shortness of breath Code(s): R06.02 - SHORTNESS OF BREATH Assessment/Plan A/P Acute on Chronic LV Diastolic Heart Failure Pulmonary HTN s/p AVR/MVR Atrial Fibrillation Liver Cirrhosis r/o Hepatoma - continue lasix, aldactone, zaroxolyn - monitor urine output, creatinine - daily weights, I/Os - rate controlled - anticoagulation - O2 to keep SpO2 >90% - inhaled bronchodilators as needed DR BOUCHER
[2016-09-19] MEDS ORDERED: WARFARIN NA 2 MG TABLET (UD) PO ONE (18:00)
[2016-09-19] MEDS: METOLAZONE 5 MG TABLET PO SCH (18:05)
[2016-09-19 20:19] LABS: CALCIUM 9.1 mg/dL (8.5-10.1); CREATININE 1.2 mg/dL (0.55-1.02)
[2016-09-19] MEDS: ZOLPIDEM TARTRATE 5 MG TABLET PO PRN (23:43)
[2016-09-20] MEDS: FUROSEMIDE 40 MG/4 ML INJECTABLE VIAL IVPUSH SCH ×2 (05:48→14:52)
--- NOTE | 2016-09-20 08:58 | PN ---
Progress Note (short form) - Note Progress Note: Progress Note PULM/CCM Patient Name: SYED PANIAGUA Date of : 1930 Patient Status: Inpatient Attending Provider: Braeden Dimas Resting in NAD. No acute events overnight. Still with LE edema. No change in breathing. Intake & Output 09/17/16 09/18/16 09/19/16 09/20/16 23:59 23:59 23:59 23:59 Intake Total 300 900 650 Output Total 1650 2350 900 700 Balance -1350 -7370 -250 -700 Weight 146 lb 5 oz 148 lb 6 oz 151 lb 1 oz 144 lb Last Vital Signs Temp Pulse Resp BP Pulse Ox 97.3 F L 84 20 120/53 98 09/20/16 07:16 09/20/16 07:16 09/20/16 07:16 09/20/16 07:16 09/19/16 21:28 Active Medications Acetaminophen (Tylenol -) 650 mg PO Q6H PRN PRN Reason: FEVER OR PAIN Albuterol Sulfate (Ventolin 0.083% Nebulizer Soln -) 1 amp NEB Q4H PRN PRN Reason: SHORT OF BREATH/WHEEZING Last Admin: 09/19/16 10:50 Dose: 1 amp Artificial Tears (Artificial Tears) 1 drop OD DAILY PRN PRN Reason: DRY EYES Bacitracin (Bacitracin -) 1 applic TP BID [facility] Last Admin: 09/19/16 22:23 Dose: 1 applic Ferrous Sulfate (Feosol -) 325 mg PO BID [facility] Last Admin: 09/19/16 22:24 Dose: 325 mg Furosemide (Lasix Injection -) 40 mg IVPUSH BID@0600,1400 [facility] Last Admin: 09/20/16 05:48 Dose: 40 mg Losartan Potassium (Cozaar -) 25 mg PO DAILY [facility] Last Admin: 09/19/16 10:01 Dose: 25 mg Metolazone (Zaroxolyn -) 5 mg PO DAILY [facility] Last Admin: 09/19/16 18:05 Dose: 5 mg Durezol 0.05% Opth Drops - Patient Own Med 1 each OD BID [facility] Last Admin: 09/19/16 22:27 Dose: 1 each Spironolactone (Aldactone -) 25 mg PO DAILY [facility] Last Admin: 09/19/16 10:00 Dose: 25 mg Zolpidem Tartrate (Ambien -) 5 mg PO HS PRN Last Admin: 09/19/16 23:43 Dose: 5 mg Constitutional: Yes: NAD Eyes: Yes: WNL HENT: Yes: WNL Neck: Yes: Supple Cardiovascular: Yes: Pulse Irregular, S1, S2 Respiratory: Yes: Bibasilar Rales Gastrointestinal: Yes: Normal Bowel Sounds, Soft Extremities: Yes: WNL Edema: Yes Labs: CBC, BMP 09/19/16 07:22 09/19/16 07:22 INR, PTT INR 2.91 (0.82-1.09) H 09/19/16 13:43 Problem List - Problems (1) RADHA (acute kidney injury) Code(s): N17.9 - ACUTE KIDNEY FAILURE, UNSPECIFIED (2) Anemia Code(s): D64.9 - ANEMIA, UNSPECIFIED Qualifiers: Anemia type: iron deficiency (3) CHF (congestive heart failure) Code(s): I50.9 - HEART FAILURE, UNSPECIFIED Qualifiers: Congestive heart failure type: diastolic Congestive heart failure chronicity: acute on chronic Qualified Code(s): I50.33 - Acute on chronic diastolic (congestive) heart failure (4) Cholelithiasis Code(s): K80.20 - CALCULUS OF GALLBLADDER W/O CHOLECYSTITIS W/O OBSTRUCTION Qualifiers: Cholelithiasis location: gallbladder Cholecystitis presence: without cholecystitis Biliary obstruction: without biliary obstruction Qualified Code(s): K80.20 - Calculus of gallbladder without cholecystitis without obstruction (5) Elevated serum creatinine Code(s): R79.89 - OTHER SPECIFIED ABNORMAL FINDINGS OF BLOOD CHEMISTRY (6) Hepatic cirrhosis Code(s): K74.60 - UNSPECIFIED CIRRHOSIS OF LIVER Qualifiers: Hepatic cirrhosis type: unspecified hepatic cirrhosis Ascites presence : without ascites Qualified Code(s): K74.60 - Unspecified cirrhosis of liver (7) Rheumatic heart disease Code(s): I09.9 - RHEUMATIC HEART DISEASE, UNSPECIFIED (8) S/P AVR (aortic valve replacement) Code(s): Z95.2 - PRESENCE OF PROSTHETIC HEART VALVE (9) S/P MVR (mitral valve replacement) Code(s): Z95.2 - PRESENCE OF PROSTHETIC HEART VALVE (11) Shortness of breath Code(s): R06.02 - SHORTNESS OF BREATH Assessment/Plan A/P Acute on Chronic LV Diastolic Heart Failure Pulmonary HTN s/p AVR/MVR Atrial Fibrillation Liver Cirrhosis r/o Hepatoma - continue lasix, aldactone, zaroxolyn - monitor urine output, creatinine - daily weights, I/Os - rate controlled - anticoagulation - O2 to keep SpO2 >90% - inhaled bronchodilators as needed Dr Miller
[2016-09-20] MEDS ORDERED: PT OWN MED DRAWER 7, Y5N ONE ×3 (10:23→21:27)
[2016-09-20] MEDS: BACITRACIN 30 GM TUBE TOPICAL OINTMENT TP SCH ×2 (10:32→21:52)
[2016-09-20] MEDS: SPIRONOLACTONE 25 MG TABLET (FP) PO SCH (10:32)
[2016-09-20] MEDS: METOLAZONE 5 MG TABLET PO SCH (10:32)
[2016-09-20] MEDS: FERROUS SO4 325 MG TABLET (FP) PO SCH ×2 (10:33→21:55)
[2016-09-20] MEDS: LOSARTAN POTASSIUM 50 MG TABLET (FP) PO SCH (10:33)
[2016-09-20] MEDS: OPTH OD SCH ×2 (10:34→21:55)
[2016-09-20] MEDS: DUREZOL 0.05% OD SCH ×2 (10:34→21:55)
--- NOTE | 2016-09-20 10:48 | PN ---
Progress Note (short form) - Note Progress Note: Chief Complaint: Events noted, notes reviewed. Denies any chest pain, dyspnea and edema persists History of Present Illness: Seen and examined on telemetry. Events noted, notes reviewed. Denies any chest pain, dyspnea and edema persists Echocardiography dated 09/09/2016 revealed normal LV size and function with mild concentric LVH, severe bi-atrial enlargement, mechanical AVR, MVR, Bio- prosthetic TV, moderate TR with RVSP >60 mmHg Echocardiography dated 03/22/2015 revealed preserved LV function with mild concentric LVH, severe bi-atrial dilatation, mechanical MV and AV prosthesis, TV bio-prosthetic, moderate to severe MR, moderate TR with severe pulmonary HTN RVSP of 67 mHg - Current Medication List Current Medications Acetaminophen (Tylenol -) 650 mg PO Q6H PRN PRN Reason: FEVER OR PAIN Albuterol Sulfate (Ventolin 0.083% Nebulizer Soln -) 1 amp NEB Q4H PRN PRN Reason: SHORT OF BREATH/WHEEZING Last Admin: 09/19/16 10:50 Dose: 1 amp Artificial Tears (Artificial Tears) 1 drop OD DAILY PRN PRN Reason: DRY EYES Bacitracin (Bacitracin -) 1 applic TP BID [facility] Last Admin: 09/20/16 10:32 Dose: 1 applic Ferrous Sulfate (Feosol -) 325 mg PO BID [facility] Last Admin: 09/20/16 10:33 Dose: 325 mg Furosemide (Lasix Injection -) 40 mg IVPUSH BID@0600,1400 [facility] Last Admin: 09/20/16 05:48 Dose: 40 mg Losartan Potassium (Cozaar -) 25 mg PO DAILY [facility] Last Admin: 09/20/16 10:33 Dose: 25 mg Metolazone (Zaroxolyn -) 5 mg PO DAILY [facility] Last Admin: 09/20/16 10:32 Dose: 5 mg Durezol 0.05% Opth Drops - Patient Own Med 1 each OD BID [facility] Last Admin: 09/20/16 10:34 Dose: 1 each Spironolactone (Aldactone -) 25 mg PO DAILY [facility] Last Admin: 09/20/16 10:32 Dose: 25 mg Zolpidem Tartrate (Ambien -) 5 mg PO HS PRN Last Admin: 09/19/16 23:43 Dose: 5 mg - Objective Vital Signs: Last Vital Signs Temp Pulse Resp BP Pulse Ox 97.3 F L 73 20 120/53 95 09/20/16 07:16 09/20/16 11:41 09/20/16 07:16 09/20/16 07:16 09/20/16 11:41 Constitutional: No Distress, Calm Neck: Supple Negative JVD No bruit Respiratory: Diminished Breath Sounds at the Bases with Basal Rales Cardiovascular: Mechanical Clicks Irregularly irregular Grade 2-3/6 Systolic and Grade 2-3/6 Diastolic Murmur Gastrointestinal: Soft Benign Normal Bowel Sounds Ext: Bilateral Edema with Bilateral Venous Stasis Changes Labs: CBC, BMP 09/19/16 07:22 09/19/16 18:00 INR, PTT INR 2.91 (0.82-1.09) H 09/19/16 13:43 Assessment/Plan ASSESSMENT: 1. 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 Post MVR and AVR (mechanical prosthesis) with history of rheumatic heart disease 3. Post TVR (Bio-prosthesis) 4. Permanent atrial fibrillation with slow ventricular response, asymptomatic 5. History of hepatic cirrhosis 6. Acute on CKD 7. Anemia PLAN: 1. Continue Lasix, Zaroxolyn and Aldactone with caution and close monitoring of renal function 2. Continue Coumadin as per INR maintain 2.5-3.5 3. Continue Cozaar with caution and close monitoring of renal function 4. Ideally should be on B-Blockers but defer related to bradycardia 5. Evaluation of anemia Rose Godoy M.D.
--- NOTE | 2016-09-20 13:48 | PN ---
Progress Note, Physician History of Present Illness: feels better - Current Medication List Current Medications: Active Medications Acetaminophen (Tylenol -) 650 mg PO Q6H PRN PRN Reason: FEVER OR PAIN Albuterol Sulfate (Ventolin 0.083% Nebulizer Soln -) 1 amp NEB Q4H PRN PRN Reason: SHORT OF BREATH/WHEEZING Last Admin: 09/19/16 10:50 Dose: 1 amp Artificial Tears (Artificial Tears) 1 drop OD DAILY PRN PRN Reason: DRY EYES Bacitracin (Bacitracin -) 1 applic TP BID [facility] Last Admin: 09/20/16 10:32 Dose: 1 applic Ferrous Sulfate (Feosol -) 325 mg PO BID [facility] Last Admin: 09/20/16 10:33 Dose: 325 mg Furosemide (Lasix Injection -) 40 mg IVPUSH BID@0600,1400 [facility] Last Admin: 09/20/16 05:48 Dose: 40 mg Losartan Potassium (Cozaar -) 25 mg PO DAILY [facility] Last Admin: 09/20/16 10:33 Dose: 25 mg Metolazone (Zaroxolyn -) 5 mg PO DAILY [facility] Last Admin: 09/20/16 10:32 Dose: 5 mg Durezol 0.05% Opth Drops - Patient Own Med 1 each OD BID [facility] Last Admin: 09/20/16 10:34 Dose: 1 each Spironolactone (Aldactone -) 25 mg PO DAILY [facility] Last Admin: 09/20/16 10:32 Dose: 25 mg Zolpidem Tartrate (Ambien -) 5 mg PO HS PRN Last Admin: 09/19/16 23:43 Dose: 5 mg - Objective Vital Signs: Vital Signs Temperature 97.3 F L 09/20/16 07:16 Pulse Rate 73 09/20/16 11:41 Respiratory Rate 20 09/20/16 07:16 Blood Pressure 120/53 09/20/16 07:16 O2 Sat by Pulse Oximetry (%) 95 09/20/16 11:41 Cardiovascular: Yes: Regular Rate and Rhythm Respiratory: Yes: Regular, CTA Bilaterally Gastrointestinal: Yes: Normal Bowel Sounds, Soft Edema: Yes Labs: CBC, BMP 09/19/16 07:22 09/19/16 18:00 INR, PTT INR 2.91 (0.82-1.09) H 12/16/16 13:43 Problem List - Problems (1) CHF (congestive heart failure) Assessment/Plan: diuretics Code(s): I50.9 - HEART FAILURE, UNSPECIFIED Qualifiers: Congestive heart failure type: diastolic Congestive heart failure chronicity: acute on chronic Qualified Code(s): I50.33 - Acute on chronic diastolic (congestive) heart failure (2) Liver mass Code(s): R16.0 - HEPATOMEGALY, NOT ELSEWHERE CLASSIFIED (4) CKD (chronic kidney disease) Assessment/Plan: monitor renal on case Code(s): N18.9 - CHRONIC KIDNEY DISEASE, UNSPECIFIED (5) Anemia Assessment/Plan: Laboratory Tests 09/19/16 09/20/16 07:22 15:20 Hgb 7.9 L 8.0 L Code(s): D64.9 - ANEMIA, UNSPECIFIED Qualifiers: Anemia type: iron deficiency (6) Permanent atrial fibrillation Assessment/Plan: Laboratory Tests 09/20/16 15:20 INR 2.74 H Code(s): I48.2 - CHRONIC ATRIAL FIBRILLATION (7) S/P AVR (aortic valve replacement) Code(s): Z95.2 - PRESENCE OF PROSTHETIC HEART VALVE
--- NOTE | 2016-09-20 14:56 | PN ---
Progress Note, Physician Chief Complaint: Renal f/u Pt c/o dyspnea on exertion She also reports having had some loose stools earlier today - Current Medication List Current Medications: Active Medications Acetaminophen (Tylenol -) 650 mg PO Q6H PRN PRN Reason: FEVER OR PAIN Albuterol Sulfate (Ventolin 0.083% Nebulizer Soln -) 1 amp NEB Q4H PRN PRN Reason: SHORT OF BREATH/WHEEZING Last Admin: 09/19/16 10:50 Dose: 1 amp Artificial Tears (Artificial Tears) 1 drop OD DAILY PRN PRN Reason: DRY EYES Bacitracin (Bacitracin -) 1 applic TP BID [facility] Last Admin: 09/20/16 10:32 Dose: 1 applic Ferrous Sulfate (Feosol -) 325 mg PO BID [facility] Last Admin: 09/20/16 10:33 Dose: 325 mg Furosemide (Lasix Injection -) 40 mg IVPUSH BID@0600,1400 [facility] Last Admin: 09/20/16 05:48 Dose: 40 mg Losartan Potassium (Cozaar -) 25 mg PO DAILY [facility] Last Admin: 09/20/16 10:33 Dose: 25 mg Metolazone (Zaroxolyn -) 5 mg PO DAILY [facility] Last Admin: 09/20/16 10:32 Dose: 5 mg Durezol 0.05% Opth Drops - Patient Own Med 1 each OD BID [facility] Last Admin: 09/20/16 10:34 Dose: 1 each Spironolactone (Aldactone -) 25 mg PO DAILY [facility] Last Admin: 09/20/16 10:32 Dose: 25 mg Zolpidem Tartrate (Ambien -) 5 mg PO HS PRN Last Admin: 09/19/16 23:43 Dose: 5 mg - Objective Vital Signs: Vital Signs Temperature 97.3 F L 09/20/16 07:16 Pulse Rate 73 09/20/16 11:41 Respiratory Rate 20 09/20/16 07:16 Blood Pressure 120/53 09/20/16 07:16 O2 Sat by Pulse Oximetry (%) 95 09/20/16 11:41 Cardiovascular: Yes: Murmur, S1, S2, Other (Metallic click) Respiratory: Yes: Other (Decreased BS at bases) Gastrointestinal: Yes: Soft, Distention Edema: Yes (Up to thighs ) Neurological: Yes: Alert, Oriented Labs: CBC, BMP 09/19/16 07:22 09/19/16 18:00 INR, PTT INR 2.91 (0.82-1.09) H 09/19/16 13:43 Assessment/Plan Impression Pre renal azotemia in pt with CKD and that requires diuresis for her valvular heart disease S/P Metallic aortic and mitral valve replacement S/P Bioprostetic Tricuspid valve replacement CHF A Fib Anemia H/O GI bleed HTN Liver cirrhosis Anemia Plan Continue with diuretic management- LAsix, Metolazone and spironolactone in addition ton the low dose ARB Will need to settle with some azotemia to keep the CHF compensated Anemia evalution and consider PRBCs if the anemia continues to worsen Rpt labs in am Dr Cooley
[2016-09-20 15:35] LABS: MCH 27.7 pg (25.7-33.7); MCHC 31.1 g/dl (32.0-36.0); MEAN CELL VOLUME 89.2 fl (80-96); PLATELET COUNT 197 K/MM3 (134-434); WHITE BLOOD COUNT 4.8 K/mm3 (4.0-10.0)
[2016-09-20 16:13] LABS: INR 2.74 (0.82-1.09); PROTHROMBIN TIME (PATIENT) 30.8 SEC (9.98-11.88)
[2016-09-20 16:14] LABS: CALCIUM 8.8 mg/dL (8.5-10.1); CREATININE 1.3 mg/dL (0.55-1.02)
[2016-09-20] MEDS ORDERED: WARFARIN NA 2 MG TABLET (UD) PO ONE (18:00)
[2016-09-20] MEDS: ZOLPIDEM TARTRATE 5 MG TABLET PO PRN (21:54)
[2016-09-21] MEDS: FUROSEMIDE 40 MG/4 ML INJECTABLE VIAL IVPUSH SCH ×2 (06:42→14:52)
[2016-09-21 07:39] LABS: MCH 28.8 pg (25.7-33.7); MCHC 32.3 g/dl (32.0-36.0); MEAN CELL VOLUME 89.1 fl (80-96); MEAN PLT VOLUME 8.9 fl (7.5-11.1); PLATELET COUNT 193 K/MM3 (134-434); RDW 16.3 % (11.6-15.6); WHITE BLOOD COUNT 4.7 K/mm3 (4.0-10.0)
[2016-09-21 07:50] LABS: INR 2.91 (0.82-1.09); PROTHROMBIN TIME (PATIENT) 32.7 SEC (9.98-11.88)
[2016-09-21 08:05] LABS: ALBUMIN 3.2 g/dl (3.4-5.0); CALCIUM 9.1 mg/dL (8.5-10.1)
[2016-09-21 08:08] LABS: BILIRUBIN,TOTAL 0.9 mg/dL (0.2-1.0); CREATININE 1.2 mg/dL (0.55-1.02); TOT PROT 6.6 g/dl (6.4-8.2)
--- NOTE | 2016-09-21 10:04 | PN ---
Progress Note (short form) - Note Progress Note: Progress Note PULM/CCM Patient Name: SYED PANIAGUA Date of : 1930 Patient Status: Inpatient Attending Provider: Braeden Dimas No acute events overnight. Still with LE edema. No change in breathing. Still with MORSE. Intake & Output 09/18/16 09/19/16 09/20/16 09/21/16 23:59 23:59 23:59 23:59 Intake Total 900 650 Output Total 2350 900 2500 300 Balance -1450 -250 -2500 -300 Weight 148 lb 6 oz 151 lb 1 oz 144 lb 148 lb 6 oz Last Vital Signs Temp Pulse Resp BP Pulse Ox 98.1 F 60 22 127/58 95 09/21/16 07:30 09/21/16 07:30 09/21/16 07:30 09/21/16 07:30 09/20/16 21:00 Active Medications Acetaminophen (Tylenol -) 650 mg PO Q6H PRN PRN Reason: FEVER OR PAIN Albuterol Sulfate (Ventolin 0.083% Nebulizer Soln -) 1 amp NEB Q4H PRN PRN Reason: SHORT OF BREATH/WHEEZING Last Admin: 09/19/16 10:50 Dose: 1 amp Artificial Tears (Artificial Tears) 1 drop OD DAILY PRN PRN Reason: DRY EYES Bacitracin (Bacitracin -) 1 applic TP BID [facility] Last Admin: 09/20/16 21:52 Dose: 1 applic Ferrous Sulfate (Feosol -) 325 mg PO BID [facility] Last Admin: 09/20/16 21:55 Dose: 325 mg Furosemide (Lasix Injection -) 40 mg IVPUSH BID@0600,1400 [facility] Last Admin: 09/21/16 06:42 Dose: 40 mg Losartan Potassium (Cozaar -) 25 mg PO DAILY [facility] Last Admin: 09/20/16 10:33 Dose: 25 mg Metolazone (Zaroxolyn -) 5 mg PO DAILY [facility] Last Admin: 09/20/16 10:32 Dose: 5 mg Durezol 0.05% Opth Drops - Patient Own Med 1 each OD BID [facility] Last Admin: 09/20/16 21:55 Dose: 1 each Spironolactone (Aldactone -) 25 mg PO DAILY [facility] Last Admin: 09/20/16 10:32 Dose: 25 mg Zolpidem Tartrate (Ambien -) 5 mg PO HS PRN Last Admin: 09/20/16 21:54 Dose: 5 mg Constitutional: Yes: NAD Eyes: Yes: WNL HENT: Yes: WNL Neck: Yes: Supple Cardiovascular: Yes: Pulse Irregular, S1, S2 Respiratory: Yes: Bibasilar Rales Gastrointestinal: Yes: Normal Bowel Sounds, Soft Extremities: Yes: WNL Edema: Yes Labs: Laboratory Results - last 24 hr 09/20/16 09/20/16 09/20/16 15:20 15:20 15:20 WBC 4.8 RBC 2.89 L Hgb 8.0 L Hct 25.8 L MCV 89.2 MCHC 31.1 L RDW 17.0 H Plt Count 197 MPV 9.0 INR 2.74 H Sodium 143 Potassium 4.0 Chloride 92 L Carbon Dioxide 41 H Anion Gap 10 BUN 101 H Creatinine 1.3 H Creat Clearance w eGFR Random Glucose 103 Calcium 8.8 Total Bilirubin AST ALT Alkaline Phosphatase Total Protein Albumin 09/21/16 09/21/16 09/21/16 06:00 06:00 06:00 WBC 4.7 RBC 2.69 L Hgb 7.8 L Hct 24.0 L MCV 89.1 MCHC 32.3 RDW 16.3 H Plt Count 193 MPV 8.9 INR 2.91 H Sodium 142 Potassium 4.1 Chloride 92 L Carbon Dioxide 41 H Anion Gap 9 BUN 95 H Creatinine 1.2 H Creat Clearance w eGFR 42.90 Random Glucose 101 Calcium 9.1 Total Bilirubin 0.9 AST 146 H ALT 64 Alkaline Phosphatase 144 H Total Protein 6.6 Albumin 3.2 L Problem List - Problems (1) RADHA (acute kidney injury) Code(s): N17.9 - ACUTE KIDNEY FAILURE, UNSPECIFIED (2) Anemia Code(s): D64.9 - ANEMIA, UNSPECIFIED Qualifiers: Anemia type: iron deficiency (3) CHF (congestive heart failure) Code(s): I50.9 - HEART FAILURE, UNSPECIFIED Qualifiers: Congestive heart failure type: diastolic Congestive heart failure chronicity: acute on chronic Qualified Code(s): I50.33 - Acute on chronic diastolic (congestive) heart failure (4) Cholelithiasis Code(s): K80.20 - CALCULUS OF GALLBLADDER W/O CHOLECYSTITIS W/O OBSTRUCTION Qualifiers: Cholelithiasis location: gallbladder Cholecystitis presence: without cholecystitis Biliary obstruction: without biliary obstruction Qualified Code(s): K80.20 - Calculus of gallbladder without cholecystitis without obstruction (5) Elevated serum creatinine Code(s): R79.89 - OTHER SPECIFIED ABNORMAL FINDINGS OF BLOOD CHEMISTRY (6) Hepatic cirrhosis Code(s): K74.60 - UNSPECIFIED CIRRHOSIS OF LIVER Qualifiers: Hepatic cirrhosis type: unspecified hepatic cirrhosis Ascites presence : without ascites Qualified Code(s): K74.60 - Unspecified cirrhosis of liver (7) Rheumatic heart disease Code(s): I09.9 - RHEUMATIC HEART DISEASE, UNSPECIFIED (8) S/P AVR (aortic valve replacement) Code(s): Z95.2 - PRESENCE OF PROSTHETIC HEART VALVE (9) S/P MVR (mitral valve replacement) Code(s): Z95.2 - PRESENCE OF PROSTHETIC HEART VALVE (11) Shortness of breath Code(s): R06.02 - SHORTNESS OF BREATH Assessment/Plan A/P Acute on Chronic LV Diastolic Heart Failure Pulmonary HTN s/p AVR/MVR Atrial Fibrillation Liver Cirrhosis r/o Hepatoma - Will D/W possible inotropic therapy - continue lasix, aldactone, zaroxolyn - monitor urine output, creatinine - daily weights, I/Os - rate controlled - anticoagulation - O2 to keep SpO2 >90% - inhaled bronchodilators as needed Dr Miller
[2016-09-21] MEDS ORDERED: PT OWN MED DRAWER 7, Y5N ONE (10:08)
[2016-09-21] MEDS: BACITRACIN 30 GM TUBE TOPICAL OINTMENT TP SCH ×2 (10:27→21:05)
[2016-09-21] MEDS: FERROUS SO4 325 MG TABLET (FP) PO SCH ×2 (10:27→21:05)
[2016-09-21] MEDS: SPIRONOLACTONE 25 MG TABLET (FP) PO SCH (10:27)
[2016-09-21] MEDS: LOSARTAN POTASSIUM 50 MG TABLET (FP) PO SCH (10:27)
[2016-09-21] MEDS: METOLAZONE 5 MG TABLET PO SCH (10:28)
[2016-09-21] MEDS: OPTH OD SCH ×2 (10:28→21:06)
[2016-09-21] MEDS: DUREZOL 0.05% OD SCH ×2 (10:28→21:06)
[2016-09-21] MEDS: ALBUTEROL SO4 0.083% IH SOL 2.5 MG/3 ML VIAL.NEB. NEB PRN (10:55)
--- NOTE | 2016-09-21 11:01 | PN ---
Progress Note (short form) - Note Progress Note: Chief Complaint: Events noted, notes reviewed. Dyspnea and edema persists with no clinical improvement, denies any chest pain History of Present Illness: Seen and examined. Events noted, notes reviewed. Dyspnea and edema persists with no clinical improvement, denies any chest pain Plan to transfer to ICU to initiate Dobuatmine drip to attempt to improve RV output since most of he clinical presentation is related to RV failure with severe pulmonary HTN, above was discussed in detail with the patient and her son (Gerber) who was at the bedside, they are aware of data that there is no survival benefits but improvement in functional class Echocardiography dated 09/09/2016 revealed normal LV size and function with mild concentric LVH, severe bi-atrial enlargement, mechanical AVR, MVR, Bio- prosthetic TV, moderate TR with RVSP >60 mmHg Echocardiography dated 03/22/2015 revealed preserved LV function with mild concentric LVH, severe bi-atrial dilatation, mechanical MV and AV prosthesis, TV bio-prosthetic, moderate to severe MR, moderate TR with severe pulmonary HTN RVSP of 67 mHg - Current Medication List Current Medications Acetaminophen (Tylenol -) 650 mg PO Q6H PRN PRN Reason: FEVER OR PAIN Albuterol Sulfate (Ventolin 0.083% Nebulizer Soln -) 1 amp NEB Q4H PRN PRN Reason: SHORT OF BREATH/WHEEZING Last Admin: 09/21/16 10:55 Dose: 1 amp Artificial Tears (Artificial Tears) 1 drop OD DAILY PRN PRN Reason: DRY EYES Bacitracin (Bacitracin -) 1 applic TP BID [facility] Last Admin: 09/21/16 10:27 Dose: 1 applic Ferrous Sulfate (Feosol -) 325 mg PO BID [facility] Last Admin: 09/21/16 10:27 Dose: 325 mg Furosemide (Lasix Injection -) 40 mg IVPUSH BID@0600,1400 [facility] Last Admin: 09/21/16 06:42 Dose: 40 mg Losartan Potassium (Cozaar -) 25 mg PO DAILY [facility] Last Admin: 09/21/16 10:27 Dose: 25 mg Metolazone (Zaroxolyn -) 5 mg PO DAILY [facility] Last Admin: 09/21/16 10:28 Dose: 5 mg Durezol 0.05% Opth Drops - Patient Own Med 1 each OD BID [facility] Last Admin: 09/21/16 10:28 Dose: 1 each Spironolactone (Aldactone -) 25 mg PO DAILY [facility] Last Admin: 09/21/16 10:27 Dose: 25 mg Zolpidem Tartrate (Ambien -) 5 mg PO HS PRN Last Admin: 09/20/16 21:54 Dose: 5 mg - Objective Vital Signs: Last Vital Signs Temp Pulse Resp BP Pulse Ox 98.1 F 60 22 127/58 95 09/21/16 07:30 09/21/16 10:55 09/21/16 07:30 09/21/16 07:30 09/21/16 10:55 Constitutional: No Distress, Calm Neck: Supple Negative JVD No bruit Respiratory: Diminished Breath Sounds at the Bases with Basal Rales Cardiovascular: Mechanical Clicks Irregularly irregular Grade 2-3/6 Systolic Gastrointestinal: Soft Benign Normal Bowel Sounds Ext: Bilateral Edema with Bilateral Venous Stasis Changes Labs: CBC, BMP 09/21/16 06:00 09/21/16 06:00 INR, PTT INR 2.91 (0.82-1.09) H 09/21/16 06:00 Assessment/Plan ASSESSMENT: 1. 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 Severe pulmonary HTN related to above 3. Post MVR and AVR (mechanical prosthesis) with history of rheumatic heart disease 4. Post TVR (Bio-prosthesis) 5. Permanent atrial fibrillation with slow ventricular response, asymptomatic 6. History of hepatic cirrhosis 7. Acute on CKD 8. Anemia PLAN: 1. Continue Lasix, Zaroxolyn and Aldactone with caution and close monitoring of renal function 2. Continue Coumadin as per INR maintain 2.5-3.5 3. Continue Cozaar with caution and close monitoring of renal function 4. Transfer to ICU to initiate Dobutamine drip 5. Evaluation and management of anemia, maintain Hg equal or > 8.0 Rose Godoy M.D.
--- NOTE | 2016-09-21 11:16 | PN ---
Progress Note, Physician History of Present Illness: feels better - Current Medication List Current Medications: Active Medications Acetaminophen (Tylenol -) 650 mg PO Q6H PRN PRN Reason: FEVER OR PAIN Albuterol Sulfate (Ventolin 0.083% Nebulizer Soln -) 1 amp NEB Q4H PRN PRN Reason: SHORT OF BREATH/WHEEZING Last Admin: 09/21/16 10:55 Dose: 1 amp Artificial Tears (Artificial Tears) 1 drop OD DAILY PRN PRN Reason: DRY EYES Bacitracin (Bacitracin -) 1 applic TP BID [facility] Last Admin: 09/21/16 10:27 Dose: 1 applic Ferrous Sulfate (Feosol -) 325 mg PO BID [facility] Last Admin: 09/21/16 10:27 Dose: 325 mg Furosemide (Lasix Injection -) 40 mg IVPUSH BID@0600,1400 [facility] Last Admin: 09/21/16 06:42 Dose: 40 mg Dobutamine HCl/Dextrose (Dobutamine 250 Mg/D5w -) 250 mls @ 10.095 mls/hr IV TITR [facility]; 2.5 MCG/KG/MIN PRN Reason: Protocol Losartan Potassium (Cozaar -) 25 mg PO DAILY [facility] Last Admin: 09/21/16 10:27 Dose: 25 mg Metolazone (Zaroxolyn -) 5 mg PO DAILY [facility] Last Admin: 09/21/16 10:28 Dose: 5 mg Durezol 0.05% Opth Drops - Patient Own Med 1 each OD BID [facility] Last Admin: 09/21/16 10:28 Dose: 1 each Spironolactone (Aldactone -) 25 mg PO DAILY [facility] Last Admin: 09/21/16 10:27 Dose: 25 mg Zolpidem Tartrate (Ambien -) 5 mg PO HS PRN Last Admin: 09/20/16 21:54 Dose: 5 mg - Objective Vital Signs: Vital Signs Temperature 98.1 F 09/21/16 07:30 Pulse Rate 60 09/21/16 10:55 Respiratory Rate 22 09/21/16 07:30 Blood Pressure 127/58 09/21/16 07:30 O2 Sat by Pulse Oximetry (%) 95 09/21/16 10:55 Cardiovascular: Yes: Murmur, S1, S2 Respiratory: Yes: Diminished, Rales Gastrointestinal: Yes: Normal Bowel Sounds, Soft Labs: CBC, BMP 09/21/16 06:00 09/21/16 06:00 INR, PTT INR 2.91 (0.82-1.09) H 09/21/16 06:00 Problem List - Problems (1) CHF (congestive heart failure) Assessment/Plan: diuretics dobutamine per cardio monitor labs Code(s): I50.9 - HEART FAILURE, UNSPECIFIED Qualifiers: Congestive heart failure type: diastolic Congestive heart failure chronicity: acute on chronic Qualified Code(s): I50.33 - Acute on chronic diastolic (congestive) heart failure (2) Liver mass Code(s): R16.0 - HEPATOMEGALY, NOT ELSEWHERE CLASSIFIED (4) CKD (chronic kidney disease) Assessment/Plan: monitor renal on case Laboratory Tests 09/20/16 09/21/16 15:20 06:00 BUN 101 H 95 H Creatinine 1.3 H 1.2 H Code(s): N18.9 - CHRONIC KIDNEY DISEASE, UNSPECIFIED (5) Anemia Assessment/Plan: CBC WBC 4.7 K/mm3 (4.0-10.0) 09/21/16 06:00 RBC 2.69 M/mm3 (3.60-5.2) L 09/21/16 06:00 Hgb 7.8 GM/dL (10.7-15.3) L 09/21/16 06:00 Hct 24.0 % (32.4-45.2) L 09/21/16 06:00 MCV 89.1 fl (80-96) 09/21/16 06:00 MCHC 32.3 g/dl (32.0-36.0) 09/21/16 06:00 RDW 16.3 % (11.6-15.6) H 09/21/16 06:00 Plt Count 193 K/MM3 (134-434) 09/21/16 06:00 MPV 8.9 fl (7.5-11.1) 09/21/16 06:00 Neutrophils % 66.0 % (42.8-82.8) 09/19/16 07:22 Lymphocytes % 10.0 % (8-40) D 09/19/16 07:22 Monocytes % 11.0 % (3.8-10.2) H 09/19/16 07:22 Eosinophils % 12.0 % (0-4.5) H 09/19/16 07:22 Basophils % 0.8 % (0-2.0) 09/15/16 06:30 Band Neutrophils 1.0 % (0-10) 09/18/16 06:00 Platelet Estimate Adequate (NORMAL) 09/19/16 07:22 Platelet Comment Few large plts 09/19/16 07:22 Platelet Comment No clumping noted 09/19/16 07:22 Hypochromic-Microcytic 2+ 09/19/16 07:22 Poikilocytosis 2+ 09/19/16 07:22 Basophilic Stippling 1+ 09/19/16 07:22 Anisocytosis 1+ 09/19/16 07:22 Microcytosis 1+ 09/19/16 07:22 Target Cells 2+ 09/19/16 07:22 Ovalocytes 1+ 09/19/16 07:22 Code(s): D64.9 - ANEMIA, UNSPECIFIED Qualifiers: Anemia type: iron deficiency (6) Permanent atrial fibrillation Assessment/Plan: Laboratory Tests 09/20/16 15:20 INR 2.74 H Code(s): I48.2 - CHRONIC ATRIAL FIBRILLATION (7) S/P AVR (aortic valve replacement) Assessment/Plan: ON COUMADIN Code(s): Z95.2 - PRESENCE OF PROSTHETIC HEART VALVE
--- NOTE | 2016-09-21 15:28 | PN ---
Progress Note, Physician Chief Complaint: Renal f/u Pt continues to have dyspnea on exertion but no chest pain Seen by Cardiology and arrangements being made for transfer to the ICU to initiate a Dobutamine trial - Current Medication List Current Medications: Active Medications Acetaminophen (Tylenol -) 650 mg PO Q6H PRN PRN Reason: FEVER OR PAIN Albuterol Sulfate (Ventolin 0.083% Nebulizer Soln -) 1 amp NEB Q4H PRN PRN Reason: SHORT OF BREATH/WHEEZING Last Admin: 09/21/16 10:55 Dose: 1 amp Artificial Tears (Artificial Tears) 1 drop OD DAILY PRN PRN Reason: DRY EYES Bacitracin (Bacitracin -) 1 applic TP BID [facility] Last Admin: 09/21/16 10:27 Dose: 1 applic Ferrous Sulfate (Feosol -) 325 mg PO BID [facility] Last Admin: 09/21/16 10:27 Dose: 325 mg Furosemide (Lasix Injection -) 40 mg IVPUSH BID@0600,1400 [facility] Last Admin: 09/21/16 14:52 Dose: 40 mg Dobutamine HCl/Dextrose (Dobutamine 250 Mg/D5w -) 250 mls @ 10.095 mls/hr IV TITR [facility]; 2.5 MCG/KG/MIN PRN Reason: Protocol Losartan Potassium (Cozaar -) 25 mg PO DAILY [facility] Last Admin: 09/21/16 10:27 Dose: 25 mg Metolazone (Zaroxolyn -) 5 mg PO DAILY [facility] Last Admin: 09/21/16 10:28 Dose: 5 mg Durezol 0.05% Opth Drops - Patient Own Med 1 each OD BID [facility] Last Admin: 09/21/16 10:28 Dose: 1 each Spironolactone (Aldactone -) 25 mg PO DAILY [facility] Last Admin: 09/21/16 10:27 Dose: 25 mg Zolpidem Tartrate (Ambien -) 5 mg PO HS PRN Last Admin: 09/20/16 21:54 Dose: 5 mg - Objective Vital Signs: Vital Signs Temperature 98.1 F 09/21/16 07:30 Pulse Rate 60 09/21/16 10:55 Respiratory Rate 22 09/21/16 07:30 Blood Pressure 127/58 09/21/16 07:30 O2 Sat by Pulse Oximetry (%) 95 12/18/16 10:55 Constitutional: Yes: Calm Cardiovascular: Yes: Murmur, S1, S2, Other (Metallic click) Respiratory: Yes: Other (Decreased BS at posterior bases) Gastrointestinal: Yes: Soft. No: Tenderness, Rebound Edema: Yes (up to thighs ) Neurological: Yes: Alert, Oriented Labs: CBC, BMP 09/21/16 06:00 09/21/16 06:00 INR, PTT INR 2.91 (0.82-1.09) H 09/21/16 06:00 Assessment/Plan Impression Pre renal azotemia stable- in pt with CKD and who requires diuresis for her valvular heart disease S/P Metallic aortic and mitral valve replacement S/P Bioprostetic Tricuspid valve replacement CHF A Fib Anemia H/O GI bleed HTN Liver cirrhosis Anemia Plan Dobutamine trial as per cardiology Continue with diuretic management- Lasix, Metolazone and spironolactone in addition ton the low dose ARB Will need to settle with some azotemia to keep the CHF compensated Anemia evalution and consider PRBCs if the anemia continues to worsen Rpt labs in am Family at bedside and aware of the plan Dr Cooley
[2016-09-21] MEDS: WARFARIN NA 2 MG TABLET (UD) PO SCH (17:54)
[2016-09-21] MEDS: DOBUTAMINE 250 MG/D5W - 250 ML IV SCH (19:25)
--- NOTE | 2016-09-21 19:53 | PN ---
Progress Note (short form) - Note Progress Note: Patient seen and examined Transferre to icu for dobutamine drip Last Vital Signs Temp Pulse Resp BP Pulse Ox 98 F 82 22 116/71 95 09/21/16 16:25 09/21/16 16:25 09/21/16 16:25 09/21/16 16:25 09/21/16 10:55 Cor: RSR, No murmurs, No gallops Lungs: Clear to P&A Abd: Soft, Normal bowel sounds, No organomegaly Ext:No significant edema Skin: No rashes, Integument intact Abnormal Lab Results 09/21/16 09/21/16 09/21/16 06:00 06:00 06:00 RBC 2.69 L Hgb 7.8 L Hct 24.0 L RDW 16.3 H INR 2.91 H Chloride 92 L Carbon Dioxide 41 H BUN 95 H Creatinine 1.2 H AST 146 H Alkaline Phosphatase 144 H Albumin 3.2 L Current Medications Acetaminophen (Tylenol -) 650 mg PO Q6H PRN PRN Reason: FEVER OR PAIN Albuterol Sulfate (Ventolin 0.083% Nebulizer Soln -) 1 amp NEB Q4H PRN PRN Reason: SHORT OF BREATH/WHEEZING Last Admin: 09/21/16 10:55 Dose: 1 amp Artificial Tears (Artificial Tears) 1 drop OD DAILY PRN PRN Reason: DRY EYES Bacitracin (Bacitracin -) 1 applic TP BID [facility] Last Admin: 09/21/16 10:27 Dose: 1 applic Ferrous Sulfate (Feosol -) 325 mg PO BID [facility] Last Admin: 09/21/16 10:27 Dose: 325 mg Furosemide (Lasix Injection -) 40 mg IVPUSH BID@0600,1400 [facility] Last Admin: 09/21/16 14:52 Dose: 40 mg Dobutamine HCl/Dextrose (Dobutamine 250 Mg/D5w -) 250 mls @ 10.095 mls/hr IV TITR ABELARDO; 2.5 MCG/KG/MIN PRN Reason: Protocol Last Admin: 09/21/16 19:25 Dose: 10.095 mls/hr Losartan Potassium (Cozaar -) 25 mg PO DAILY [facility] Last Admin: 09/21/16 10:27 Dose: 25 mg Metolazone (Zaroxolyn -) 5 mg PO DAILY [facility] Last Admin: 09/21/16 10:28 Dose: 5 mg Durezol 0.05% Opth Drops - Patient Own Med 1 each OD BID [facility] Last Admin: 09/21/16 10:28 Dose: 1 each Spironolactone (Aldactone -) 25 mg PO DAILY [facility] Last Admin: 09/21/16 10:27 Dose: 25 mg Warfarin Sodium (Coumadin -) 2 mg PO DAILY@1800 [facility] Last Admin: 09/21/16 17:54 Dose: 2 mg Zolpidem Tartrate (Ambien -) 5 mg PO HS PRN Last Admin: 09/20/16 21:54 Dose: 5 mg A/P 85 y/o with mechanical heart valves, CHF, CKD, cirrhosis, on chronic a/c for mechanical valves, gi bleed, AVMs now with worsening weakness/edema/SOB INR monitoring difficult with mechanical valves on coumadin, cirrhosis. 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 unable to get MRI due to mechanical valves. AFP very high presumptive metastatic hepatocellular ca advanced cardiac/liver disease poor prognosis overall
[2016-09-21] MEDS: ZOLPIDEM TARTRATE 5 MG TABLET PO PRN (23:29)
[2016-09-22 06:12] LABS: BASOPHIL 0.4 % (0-2.0); EOSINOPHIL 5.7 % (0-4.5); MCH 28.8 pg (25.7-33.7); MCHC 32.6 g/dl (32.0-36.0); MEAN CELL VOLUME 88.5 fl (80-96); MEAN PLT VOLUME 9.5 fl (7.5-11.1); NEUTROPHILS 68.3 % (42.8-82.8); PLATELET COUNT 172 K/MM3 (134-434); RDW 16.8 % (11.6-15.6); WHITE BLOOD COUNT 4.9 K/mm3 (4.0-10.0)
[2016-09-22 06:38] LABS: MAGNESIUM 2.6 mg/dL (1.8-2.4)
[2016-09-22 06:40] LABS: PHOSPHOROUS 3.3 mg/dL (2.5-4.9)
[2016-09-22] MEDS: FUROSEMIDE 40 MG/4 ML INJECTABLE VIAL IVPUSH SCH ×2 (06:41→17:42)
[2016-09-22] MEDS ORDERED: PT OWN MED DRAWER 7, Y5N ONE ×2 (09:09→13:10)
[2016-09-22] MEDS: LOSARTAN POTASSIUM 50 MG TABLET (FP) PO SCH ×2 (09:23→18:50)
[2016-09-22] MEDS: FERROUS SO4 325 MG TABLET (FP) PO SCH ×2 (09:23→22:25)
[2016-09-22] MEDS: BACITRACIN 30 GM TUBE TOPICAL OINTMENT TP SCH ×2 (09:23→22:18)
[2016-09-22] MEDS: DOBUTAMINE 250 MG/D5W - 250 ML IV SCH ×2 (09:23→11:43)
[2016-09-22] MEDS: SPIRONOLACTONE 25 MG TABLET (FP) PO SCH (09:25)
[2016-09-22 09:37] LABS: BILIRUBIN,TOTAL 0.8 mg/dL (0.2-1.0); CALCIUM 8.5 mg/dL (8.5-10.1); CREATININE 1.2 mg/dL (0.55-1.02); TOT PROT 5.9 g/dl (6.4-8.2)
[2016-09-22] MEDS: DUREZOL 0.05% OD SCH ×2 (09:39→22:18)
[2016-09-22] MEDS: OPTH OD SCH ×2 (09:39→22:18)
[2016-09-22 10:55] LABS: MCH 28.8 pg (25.7-33.7); MCHC 32.1 g/dl (32.0-36.0); MEAN CELL VOLUME 89.6 fl (80-96); PLATELET COUNT 175 K/MM3 (134-434); RDW 16.9 % (11.6-15.6)
--- NOTE | 2016-09-22 11:06 | PN ---
Progress Note, Physician - Current Medication List Current Medications: Active Medications Acetaminophen (Tylenol -) 650 mg PO Q6H PRN PRN Reason: FEVER OR PAIN Last Admin: 09/22/16 03:33 Dose: 650 mg Albuterol Sulfate (Ventolin 0.083% Nebulizer Soln -) 1 amp NEB Q4H PRN PRN Reason: SHORT OF BREATH/WHEEZING Last Admin: 09/21/16 10:55 Dose: 1 amp Artificial Tears (Artificial Tears) 1 drop OD DAILY PRN PRN Reason: DRY EYES Bacitracin (Bacitracin -) 1 applic TP BID [facility] Last Admin: 09/22/16 09:23 Dose: 1 applic Ferrous Sulfate (Feosol -) 325 mg PO BID [facility] Last Admin: 09/22/16 09:23 Dose: 325 mg Furosemide (Lasix Injection -) 40 mg IVPUSH BID@0600,1400 [facility] Last Admin: 09/22/16 06:41 Dose: 40 mg Dobutamine HCl/Dextrose (Dobutamine 250 Mg/D5w -) 250 mls @ 10.095 mls/hr IV TITR ABELARDO; 2.5 MCG/KG/MIN PRN Reason: Protocol Last Admin: 09/22/16 09:23 Dose: 20.191 mls/hr Losartan Potassium (Cozaar -) 25 mg PO DAILY [facility] Last Admin: 09/22/16 09:23 Dose: Not Given Metolazone (Zaroxolyn -) 5 mg PO DAILY [facility] Last Admin: 09/21/16 10:28 Dose: 5 mg Durezol 0.05% Opth Drops - Patient Own Med 1 each OD BID [facility] Last Admin: 09/22/16 09:39 Dose: 1 each Spironolactone (Aldactone -) 25 mg PO DAILY [facility] Last Admin: 09/22/16 09:25 Dose: 25 mg Warfarin Sodium (Coumadin -) 2 mg PO DAILY@1800 [facility] Last Admin: 09/21/16 17:54 Dose: 2 mg Zolpidem Tartrate (Ambien -) 5 mg PO HS PRN Last Admin: 09/21/16 23:29 Dose: 5 mg - Objective Vital Signs: Vital Signs Temperature 97.5 F L 09/22/16 10:00 Pulse Rate 75 09/22/16 10:00 Respiratory Rate 22 09/22/16 10:00 Blood Pressure 101/50 09/22/16 10:00 O2 Sat by Pulse Oximetry (%) 92 L 09/22/16 09:39 Cardiovascular: Yes: Regular Rate and Rhythm, S1, S2 Respiratory: Yes: Diminished, Other (IN MILD RESP DISTRESS S/P EXERTION (MOVED FOOD CART AWAY FROM BED)) Gastrointestinal: Yes: Normal Bowel Sounds, Soft Edema: Yes Labs: INR, PTT INR 2.91 (0.82-1.09) H 09/21/16 06:00 Problem List - Problems (1) Anemia Code(s): D64.9 - ANEMIA, UNSPECIFIED Qualifiers: Anemia type: iron deficiency (2) CHF (congestive heart failure) Code(s): I50.9 - HEART FAILURE, UNSPECIFIED Qualifiers: Congestive heart failure type: diastolic Congestive heart failure chronicity: acute on chronic Qualified Code(s): I50.33 - Acute on chronic diastolic (congestive) heart failure (3) Elevated serum creatinine Code(s): R79.89 - OTHER SPECIFIED ABNORMAL FINDINGS OF BLOOD CHEMISTRY (4) Hepatic cirrhosis Code(s): K74.60 - UNSPECIFIED CIRRHOSIS OF LIVER Qualifiers: Hepatic cirrhosis type: unspecified hepatic cirrhosis Ascites presence : without ascites Qualified Code(s): K74.60 - Unspecified cirrhosis of liver (5) Rheumatic heart disease Code(s): I09.9 - RHEUMATIC HEART DISEASE, UNSPECIFIED (6) S/P AVR (aortic valve replacement) Code(s): Z95.2 - PRESENCE OF PROSTHETIC HEART VALVE (7) S/P MVR (mitral valve replacement) Code(s): Z95.2 - PRESENCE OF PROSTHETIC HEART VALVE (8) Shortness of breath Code(s): R06.02 - SHORTNESS OF BREATH Assessment/Plan (1) CHF (congestive heart failure) Assessment/Plan: diuretics dobutamine per cardio monitor labs Code(s): I50.9 - HEART FAILURE, UNSPECIFIED Qualifiers: Congestive heart failure type: diastolic Congestive heart failure chronicity: acute on chronic Qualified Code(s): I50.33 - Acute on chronic diastolic (congestive) heart failure (2) Liver mass Code(s): R16.0 - HEPATOMEGALY, NOT ELSEWHERE CLASSIFIED gi on case Hepatoma and cirrhosis per GI-poor prognosis Palliative care consulted (4) CKD (chronic kidney disease) Assessment/Plan: monitor renal on case cr 1.2 Code(s): N18.9 - CHRONIC KIDNEY DISEASE, UNSPECIFIED (5) Anemia Assessment/Plan: KEEP HBG >8 HGB 6.8 -> pRBC fobt +micha gi on case Code(s): D64.9 - ANEMIA, UNSPECIFIED Qualifiers: Anemia type: iron deficiency (6) Permanent atrial fibrillation Assessment/Plan: as per cardio need inr 3 to 3.5 fobt +micha inr 2.7 -> f/u Code(s): I48.2 - CHRONIC ATRIAL FIBRILLATION (7) S/P AVR (aortic valve replacement) Assessment/Plan: ON COUMADIN Code(s): Z95.2 - PRESENCE OF PROSTHETIC HEART VALVE [employer]END[employer] FM
[2016-09-22 11:20] LABS: ALBUMIN 2.9 g/dl (3.4-5.0); CALCIUM 8.5 mg/dL (8.5-10.1); CREATININE 1.2 mg/dL (0.55-1.02)
[2016-09-22 11:21] LABS: BILIRUBIN,TOTAL 0.8 mg/dL (0.2-1.0); TOT PROT 5.8 g/dl (6.4-8.2)
[2016-09-22 11:25] LABS: INR 3.07 (0.82-1.09); PROTHROMBIN TIME (PATIENT) 34.5 SEC (9.98-11.88)
--- NOTE | 2016-09-22 12:52 | PN ---
Teaching Attending Note Name of Resident: James Ding ATTENDING PHYSICIAN STATEMENT I saw and evaluated the patient. I reviewed the resident's note and discussed the case with the resident. I agree with the resident's findings and plan as documented. SUBJECTIVE: Pt seen and examined in the ICU. Remains on dobutamine gtt and lasix. Diuresing well but still significant shortness of breath. No chest pain or palpitations. Dark tarry stools overnight. OBJECTIVE: Last Vital Signs Temp Pulse Resp BP Pulse Ox 97.5 F L 80 22 126/36 92 L 09/22/16 10:00 09/22/16 12:00 09/22/16 12:00 09/22/16 12:00 09/22/16 09:39 Intake & Output 09/19/16 09/20/16 09/21/16 09/22/16 23:59 23:59 23:59 23:59 Intake Total 650 630 380 Output Total 900 2500 2400 1100 Balance -250 -2500 -1770 -720 Weight 151 lb 1 oz 144 lb 147 lb 14.883 oz 146 lb 3.2 oz Gen: tachypneic at rest, +accessory muscle use Heart: RRR Lung: bilateral rales 2/3 up Abd: soft, nontender Ext: + edema CBC, BMP 09/22/16 10:34 09/22/16 10:34 CXR: severe cardiomegaly Active Medications Acetaminophen (Tylenol -) 650 mg PO Q6H PRN PRN Reason: FEVER OR PAIN Last Admin: 09/22/16 03:33 Dose: 650 mg Albuterol Sulfate (Ventolin 0.083% Nebulizer Soln -) 1 amp NEB Q4H PRN PRN Reason: SHORT OF BREATH/WHEEZING Last Admin: 09/21/16 10:55 Dose: 1 amp Artificial Tears (Artificial Tears) 1 drop OD DAILY PRN PRN Reason: DRY EYES Bacitracin (Bacitracin -) 1 applic TP BID [facility] Last Admin: 09/22/16 09:23 Dose: 1 applic Ferrous Sulfate (Feosol -) 325 mg PO BID [facility] Last Admin: 09/22/16 09:23 Dose: 325 mg Furosemide (Lasix Injection -) 40 mg IVPUSH BID@0600,1400 [facility] Last Admin: 09/22/16 06:41 Dose: 40 mg Dobutamine HCl/Dextrose (Dobutamine 250 Mg/D5w -) 250 mls @ 10.095 mls/hr IV TITR ABELARDO; 2.5 MCG/KG/MIN PRN Reason: Protocol Last Admin: 09/22/16 11:43 Dose: Not Given Losartan Potassium (Cozaar -) 25 mg PO DAILY [facility] Last Admin: 09/22/16 09:23 Dose: Not Given Metolazone (Zaroxolyn -) 5 mg PO DAILY [facility] Last Admin: 09/21/16 10:28 Dose: 5 mg Durezol 0.05% Opth Drops - Patient Own Med 1 each OD BID [facility] Last Admin: 09/22/16 09:39 Dose: 1 each Spironolactone (Aldactone -) 25 mg PO DAILY [facility] Last Admin: 09/22/16 09:25 Dose: 25 mg Warfarin Sodium (Coumadin -) 2 mg PO DAILY@1800 [facility] Last Admin: 09/21/16 17:54 Dose: 2 mg Zolpidem Tartrate (Ambien -) 5 mg PO HS PRN Last Admin: 09/21/16 23:29 Dose: 5 mg ASSESSMENT AND PLAN: Acute on Chronic LV Diastolic Heart Failure/Right Heart Failure Pulmonary HTN s/p AVR/MVR Atrial Fibrillation Liver Cirrhosis Likely HCC GI Bleed Anemia - continue lasix, aldactone, zaroxolyn - continue dobutamine gtt - monitor urine output, creatinine - daily weights, I/Os - offered BiPAP to assist in work of breathing but pt refusing - rate controlled - transfuse 1 unit PRBC - dose lasix after transfusion - continue anticoagulation for now - GI f/u - protonix - O2 to keep SpO2 >90% - palliative care evaluation - discuss advanced directives/goals of care
--- NOTE | 2016-09-22 13:12 | PN ---
Progress Note, Physician History of Present Illness: Pt seen and examined at bedside. She is awake and alert. She is now in the ICU on dobutamine. - Current Medication List Current Medications: Active Medications Acetaminophen (Tylenol -) 650 mg PO Q6H PRN PRN Reason: FEVER OR PAIN Last Admin: 09/22/16 03:33 Dose: 650 mg Albuterol Sulfate (Ventolin 0.083% Nebulizer Soln -) 1 amp NEB Q4H PRN PRN Reason: SHORT OF BREATH/WHEEZING Last Admin: 09/21/16 10:55 Dose: 1 amp Artificial Tears (Artificial Tears) 1 drop OD DAILY PRN PRN Reason: DRY EYES Bacitracin (Bacitracin -) 1 applic TP BID [facility] Last Admin: 09/22/16 09:23 Dose: 1 applic Ferrous Sulfate (Feosol -) 325 mg PO BID [facility] Last Admin: 09/22/16 09:23 Dose: 325 mg Furosemide (Lasix Injection -) 40 mg IVPUSH BID@0600,1400 [facility] Last Admin: 09/22/16 06:41 Dose: 40 mg Dobutamine HCl/Dextrose (Dobutamine 250 Mg/D5w -) 250 mls @ 10.095 mls/hr IV TITR ABELARDO; 2.5 MCG/KG/MIN PRN Reason: Protocol Last Admin: 09/22/16 11:43 Dose: Not Given Losartan Potassium (Cozaar -) 25 mg PO DAILY [facility] Last Admin: 09/22/16 09:23 Dose: Not Given Metolazone (Zaroxolyn -) 5 mg PO DAILY [facility] Last Admin: 09/21/16 10:28 Dose: 5 mg Durezol 0.05% Opth Drops - Patient Own Med 1 each OD BID [facility] Last Admin: 09/22/16 09:39 Dose: 1 each Spironolactone (Aldactone -) 25 mg PO DAILY [facility] Last Admin: 09/22/16 09:25 Dose: 25 mg Warfarin Sodium (Coumadin -) 2 mg PO DAILY@1800 [facility] Last Admin: 09/21/16 17:54 Dose: 2 mg Zolpidem Tartrate (Ambien -) 5 mg PO HS PRN Last Admin: 09/21/16 23:29 Dose: 5 mg - Objective Vital Signs: Vital Signs Temperature 97.5 F L 09/22/16 10:00 Pulse Rate 80 09/22/16 12:00 Respiratory Rate 22 09/22/16 12:00 Blood Pressure 126/36 09/22/16 12:00 O2 Sat by Pulse Oximetry (%) 92 L 09/22/16 09:39 Constitutional: Yes: Calm Eyes: Yes: Conjunctiva Clear HENT: Yes: Atraumatic Cardiovascular: Yes: S1, S2 Respiratory: Yes: Diminished, On Nasal O2 Gastrointestinal: Yes: Soft Genitourinary: Yes: Dawn Present Musculoskeletal: Yes: Muscle Weakness Edema: Yes Neurological: Yes: Oriented Psychiatric: Yes: Oriented Labs: CBC, BMP 09/22/16 10:34 09/22/16 10:34 INR, PTT INR 3.07 (0.82-1.09) H 09/22/16 10:34 - ....Imaging Chest X-ray: Report Reviewed Problem List - Problems (1) Anemia Code(s): D64.9 - ANEMIA, UNSPECIFIED Qualifiers: Anemia type: iron deficiency (2) CHF (congestive heart failure) Code(s): I50.9 - HEART FAILURE, UNSPECIFIED Qualifiers: Congestive heart failure type: diastolic Congestive heart failure chronicity: acute on chronic Qualified Code(s): I50.33 - Acute on chronic diastolic (congestive) heart failure (3) Cholelithiasis Code(s): K80.20 - CALCULUS OF GALLBLADDER W/O CHOLECYSTITIS W/O OBSTRUCTION Qualifiers: Cholelithiasis location: gallbladder Cholecystitis presence: without cholecystitis Biliary obstruction: without biliary obstruction Qualified Code(s): K80.20 - Calculus of gallbladder without cholecystitis without obstruction (4) Hepatic cirrhosis Code(s): K74.60 - UNSPECIFIED CIRRHOSIS OF LIVER Qualifiers: Hepatic cirrhosis type: unspecified hepatic cirrhosis Ascites presence : without ascites Qualified Code(s): K74.60 - Unspecified cirrhosis of liver (5) S/P AVR (aortic valve replacement) Code(s): Z95.2 - PRESENCE OF PROSTHETIC HEART VALVE (6) S/P MVR (mitral valve replacement) Code(s): Z95.2 - PRESENCE OF PROSTHETIC HEART VALVE (8) Shortness of breath Code(s): R06.02 - SHORTNESS OF BREATH (9) RADHA (acute kidney injury) Code(s): N17.9 - ACUTE KIDNEY FAILURE, UNSPECIFIED Assessment/Plan Current Medications Generic Name Dose Route Start Last Admin Trade Name Freq PRN Reason Stop Dose Admin Acetaminophen 650 mg 09/05/16 20:01 09/22/16 03:33 Tylenol - PO 650 mg Q6H PRN Administration FEVER OR PAIN Albuterol Sulfate 1 amp 09/13/16 14:36 09/21/16 10:55 Ventolin 0.083% Nebulizer Soln - NEB 1 amp Q4H PRN Administration SHORT OF BREATH/WHEEZING Artificial Tears 1 drop 09/05/16 20:04 Artificial Tears OD DAILY PRN DRY EYES Bacitracin 1 applic 09/14/16 22:00 09/22/16 09:23 Bacitracin - TP 1 applic BID [facility] Administration Ferrous Sulfate 325 mg 09/05/16 22:00 09/22/16 09:23 Feosol - PO 325 mg BID [facility]O Administration Furosemide 40 mg 09/06/16 14:00 09/22/16 06:41 Lasix Injection - IVPUSH 40 mg BID@0600,1400 [facility]O Administration Dobutamine HCl/Dextrose 250 mls @ 10.095 mls/hr 09/21/16 11:15 09/22/16 11:43 Dobutamine 250 Mg/D5w - IV Not Given TITR ABELARDO Protocol 2.5 MCG/KG/MIN Losartan Potassium 25 mg 09/06/16 10:00 09/22/16 09:23 Cozaar - PO Not Given DAILY [facility]O Metolazone 5 mg 09/19/16 15:15 09/21/16 10:28 Zaroxolyn - PO 5 mg DAILY [facility]AROD Administration Durezol 0.05% Opth 1 each 09/07/16 22:00 09/22/16 09:39 Drops - Patient Own OD 1 each Med BID [facility] Administration Spironolactone 25 mg 09/09/16 10:15 09/22/16 09:25 Aldactone - PO 25 mg DAILY [facility] Administration Warfarin Sodium 2 mg 09/21/16 18:00 09/21/16 17:54 Coumadin - PO 2 mg DAILY@1800 [facility]O Administration Zolpidem Tartrate 5 mg 09/17/16 00:26 09/21/16 23:29 Ambien - PO 5 mg HS PRN Administration Impression 1. RADHA 2. aortic valve replacement 3. mitral valve replacement 4. tricuspid valve replacement 5. CHF 6. a-fib 7. anemia 8. hx GI bleed 9. HTN 10. liver cirrhosis 11. CKD Plan - renal function has not changed much - repeat bmp in am - cont current meds - case discussed in detail with family - may need to settle for higher creatinine to keep pt euvolemic - monitor INR - will follow Dr Bo
[2016-09-22 13:13] LABS: ANISOCYTOSIS 1+; HYPOCHROMIA 1+; PLATELET ESTIMATE ADEQUATE (NORMAL)
[2016-09-22] MEDS: METOLAZONE 5 MG TABLET PO SCH (13:15)
[2016-09-22] MEDS ORDERED: FUROSEMIDE 40 MG/4 ML INJECTABLE VIAL IVPUSH ONE (14:03)
--- NOTE | 2016-09-22 14:28 | PN ---
Progress Note, Physician History of Present Illness: patient seen ad examined at bedside complains of shortness of breath unchanged from yesterday complains of occasional epistaxis and occasional leg cramping. - Current Medication List Current Medications: Active Medications Acetaminophen (Tylenol -) 650 mg PO Q6H PRN PRN Reason: FEVER OR PAIN Last Admin: 09/22/16 03:33 Dose: 650 mg Albuterol Sulfate (Ventolin 0.083% Nebulizer Soln -) 1 amp NEB Q4H PRN PRN Reason: SHORT OF BREATH/WHEEZING Last Admin: 09/21/16 10:55 Dose: 1 amp Artificial Tears (Artificial Tears) 1 drop OD DAILY PRN PRN Reason: DRY EYES Bacitracin (Bacitracin -) 1 applic TP BID [facility] Last Admin: 09/22/16 09:23 Dose: 1 applic Ferrous Sulfate (Feosol -) 325 mg PO BID [facility] Last Admin: 09/22/16 09:23 Dose: 325 mg Furosemide (Lasix Injection -) 40 mg IVPUSH BID@0600,1400 [facility] Last Admin: 09/22/16 06:41 Dose: 40 mg Furosemide (Lasix Injection -) 40 mg IVPUSH ONCE ONE Stop: 09/22/16 14:04 Dobutamine HCl/Dextrose (Dobutamine 250 Mg/D5w -) 250 mls @ 10.095 mls/hr IV TITR ABELARDO; 2.5 MCG/KG/MIN PRN Reason: Protocol Last Admin: 09/22/16 11:43 Dose: Not Given Pantoprazole Sodium 80 mg/ (Sodium Chloride) 100 mls @ 10 mls/hr IVPB Q10H ABELARDO PRN Reason: 8 MG/HR Octreotide Acetate 1,200 mcg/ (Dextrose) 500 mls @ 20.83 mls/hr IVPB ASDIR ABELARDO PRN Reason: 50 MCG/HR Losartan Potassium (Cozaar -) 25 mg PO DAILY [facility] Last Admin: 09/22/16 09:23 Dose: Not Given Metolazone (Zaroxolyn -) 5 mg PO DAILY [facility] Last Admin: 09/22/16 13:15 Dose: 5 mg Durezol 0.05% Opth Drops - Patient Own Med 1 each OD BID [facility] Last Admin: 09/22/16 09:39 Dose: 1 each Spironolactone (Aldactone -) 25 mg PO DAILY [facility] Last Admin: 09/22/16 09:25 Dose: 25 mg Warfarin Sodium (Coumadin -) 2 mg PO DAILY@1800 [facility] Last Admin: 09/21/16 17:54 Dose: 2 mg Zolpidem Tartrate (Ambien -) 5 mg PO HS PRN Last Admin: 09/21/16 23:29 Dose: 5 mg - Objective Vital Signs: Vital Signs Temperature 97.4 F L 09/22/16 14:00 Pulse Rate 72 09/22/16 14:00 Respiratory Rate 09/22/16 14:00 Blood Pressure 103/44 09/22/16 14:00 O2 Sat by Pulse Oximetry (%) 92 L 09/22/16 09:39 Constitutional: Yes: Well Nourished, Mild Distress Eyes: Yes: Conjunctiva Clear HENT: Yes: Atraumatic, Normocephalic Neck: Yes: Supple, Trachea Midline Cardiovascular: Yes: Pulse Irregular, Murmur (3/6 murmur at apex and RUSB and LUSB), S1, S2 Respiratory: Yes: Other (crackles bilaterally) Gastrointestinal: Yes: WNL, Soft ...Rectal Exam: Yes: Other (black stool on glove send for FOBT) Genitourinary: Yes: Dawn Present Musculoskeletal: Yes: Muscle Pain Extremities: Yes: Other (cramping thighs) Edema: Yes Edema: LLE: 2+, RLE: 2+ Integumentary: Yes: Venous Stasis Changes (b/l LE) Neurological: Yes: Alert, Oriented, Cran Nerves II-XII Intact Labs: CBC, BMP 09/22/16 10:34 09/22/16 10:34 INR, PTT INR 3.07 (0.82-1.09) H 09/22/16 10:34 - ....Imaging Chest X-ray: Report Reviewed, Image Reviewed Ultrasound: Report Reviewed, Image Reviewed Assessment/Plan 86F with multiple medical problems admitted for CHF exacerbation transferred to ICU for dobutamine gtt now with possible GI bleed and acute anemia problems list: 1. RADHA 2. aortic valve replacement 3. mitral valve replacement 4. tricuspid valve replacement 5. CHF 6. a-fib 7. anemia 8. hx GI bleed 9. HTN 10. liver cirrhosis 11. CKD Neuro: Neurologically intact pain controlled no issues CV: Patient on dobutamine gtt @ 5 continue for now Continue lasix for CHF continue metolazone losartan aldactone hold coumadin for tonight since INR 3 and GI bleed with epistaxis Afib rate controlled Resp: continue to be SOB especially with minimal exertion tachypneic BiPAP PRN patient currently refusing GI: possible GI bleed FOBT sent LFTs not improving Hepatoma and cirrhosis per GI-poor prognosis Palliative care consulted octreotide gtt and protonix gtt per GI Hemetology: hold coumadin for now for possible GI bleed nurse saw black tarry stools will not reverse INR since has valve replacements transfuse 1 unit PRBCs and give lasix Hb>8 renal: acute on chronic renal failure Cr unchanged renal consult appreciated not improving may be new baseline FEN: no fluids no electrolyte abnormalities sodium diet-->npo if GI bleed PPx: On coumadin elevated INR Protonic gtt PT consult PAtient seen case discussed with Dr. Herrera
--- NOTE | 2016-09-22 14:39 | PN ---
Progress Note, Physician History of Present Illness: Still dyspneic with minimal exertion. LE edema, ascites slowly improving with diuresis and compression therapy, inotropes started. - Current Medication List Current Medications: Active Medications Acetaminophen (Tylenol -) 650 mg PO Q6H PRN PRN Reason: FEVER OR PAIN Last Admin: 09/22/16 03:33 Dose: 650 mg Albuterol Sulfate (Ventolin 0.083% Nebulizer Soln -) 1 amp NEB Q4H PRN PRN Reason: SHORT OF BREATH/WHEEZING Last Admin: 09/21/16 10:55 Dose: 1 amp Artificial Tears (Artificial Tears) 1 drop OD DAILY PRN PRN Reason: DRY EYES Bacitracin (Bacitracin -) 1 applic TP BID [facility] Last Admin: 09/22/16 09:23 Dose: 1 applic Ferrous Sulfate (Feosol -) 325 mg PO BID [facility] Last Admin: 09/22/16 09:23 Dose: 325 mg Furosemide (Lasix Injection -) 40 mg IVPUSH BID@0600,1400 [facility] Last Admin: 09/22/16 06:41 Dose: 40 mg Dobutamine HCl/Dextrose (Dobutamine 250 Mg/D5w -) 250 mls @ 10.095 mls/hr IV TITR [facility]; 2.5 MCG/KG/MIN PRN Reason: Protocol Last Admin: 09/22/16 11:43 Dose: Not Given Pantoprazole Sodium 80 mg/ (Sodium Chloride) 100 mls @ 10 mls/hr IVPB Q10H [facility] PRN Reason: 8 MG/HR Octreotide Acetate 1,200 mcg/ (Dextrose) 500 mls @ 20.83 mls/hr IVPB ASDIR [facility] ; 50 MCG/HR PRN Reason: Protocol Losartan Potassium (Cozaar -) 25 mg PO DAILY [facility] Last Admin: 09/22/16 09:23 Dose: Not Given Metolazone (Zaroxolyn -) 5 mg PO DAILY [facility] Last Admin: 09/22/16 13:15 Dose: 5 mg Durezol 0.05% Opth Drops - Patient Own Med 1 each OD BID [facility] Last Admin: 09/22/16 09:39 Dose: 1 each Spironolactone (Aldactone -) 25 mg PO DAILY [facility] Last Admin: 09/22/16 09:25 Dose: 25 mg Warfarin Sodium (Coumadin -) 2 mg PO DAILY@1800 [facility] Last Admin: 09/21/16 17:54 Dose: 2 mg Zolpidem Tartrate (Ambien -) 5 mg PO HS PRN Last Admin: 09/21/16 23:29 Dose: 5 mg - Objective Vital Signs: Vital Signs Temperature 97.4 F L 09/22/16 14:00 Pulse Rate 72 09/22/16 14:00 Respiratory Rate 19 09/22/16 14:00 Blood Pressure 103/44 09/22/16 14:00 O2 Sat by Pulse Oximetry (%) 92 L 09/22/16 09:39 Constitutional: Yes: Calm, Anxious, Thin Cardiovascular: Yes: Pulse Irregular Respiratory: Yes: Regular, Diminished, On Nasal O2 Gastrointestinal: Yes: Normal Bowel Sounds, Soft Edema: No Labs: CBC, BMP 09/22/16 10:34 09/22/16 10:34 INR, PTT INR 3.07 (0.82-1.09) H 09/22/16 10:34 - ....Imaging Chest X-ray: Report Reviewed (No CHF) Problem List - Problems (1) CHF (congestive heart failure) Code(s): I50.9 - HEART FAILURE, UNSPECIFIED Qualifiers: Qualified Code(s): I50.33 - Acute on chronic diastolic (congestive) heart failure (2) Rheumatic heart disease Code(s): I09.9 - RHEUMATIC HEART DISEASE, UNSPECIFIED (3) S/P AVR (aortic valve replacement) Code(s): Z95.2 - PRESENCE OF PROSTHETIC HEART VALVE (4) S/P MVR (mitral valve replacement) Code(s): Z95.2 - PRESENCE OF PROSTHETIC HEART VALVE (6) Shortness of breath Code(s): R06.02 - SHORTNESS OF BREATH (7) Permanent atrial fibrillation Code(s): I48.2 - CHRONIC ATRIAL FIBRILLATION (8) Pulmonary hypertension Code(s): I27.2 - OTHER SECONDARY PULMONARY HYPERTENSION (9) Venous stasis dermatitis of both lower extremities Code(s): I83.11 - VARICOSE VEINS OF RIGHT LOWER EXTREMITY WITH INFLAMMATION I83.12 - VARICOSE VEINS OF LEFT LOWER EXTREMITY WITH INFLAMMATION (10) Cholelithiasis Code(s): K80.20 - CALCULUS OF GALLBLADDER W/O CHOLECYSTITIS W/O OBSTRUCTION Qualifiers: Qualified Code(s): K80.20 - Calculus of gallbladder without cholecystitis without obstruction (11) Hepatic cirrhosis Code(s): K74.60 - UNSPECIFIED CIRRHOSIS OF LIVER Qualifiers: Qualified Code(s): K74.60 - Unspecified cirrhosis of liver (12) Hepatocellular carcinoma Code(s): C22.0 - LIVER CELL CARCINOMA Assessment/Plan 09/09/2016 Echo: Normal LV size and fxn with mild cLVH, severe DELBERT, mech AVR, MVR , bio TVR, mod TR, RVSP>60 mmHg, mild NH 09/14/2016 Abd U/S: Ascites, cirrhosis, cholelithiasis, suspect left lobe malignancy Echocardiography dated 03/22/2015 revealed preserved LV function with mild concentric LVH, severe bi-atrial dilatation, mechanical MV and AV prosthesis, TV bio-prosthetic, moderate to severe MR, moderate TR with severe pulmonary HTN RVSP of 67 mHg 1. Clinical presentation c/w acute on chronic LV/RV diastolic failure with pulm HTN 2. Post MVR and AVR (mechanical prosthesis) with history of rheumatic heart disease and therapeutic INR 3. Post TVR (bioprosthesis) with moderate tricuspid regurgitation and severe pulmonary hypertension 4. Permanent atrial fibrillation 5. Anemia receiving transfusion 6. History of hepatic cirrhosis, cholelithiasis and elevated AFP, suspect left lobe HCC 7. Left epistaxis s/p cautery PLAN: 1. Continue Lasix IV 40 mg BID, Spironolactone 25 bid and Zaroxolyn 2.5 qd with inotropic support and monitor diuretic response, renal function and electrolytes. Would likely use Demadex as outpatient 2. Transfuse for Hgb>8.0, Coumadin per INR 3.0-3.5 3. Continue Cozaar 25 qd. Currently not on beta yuly and held due to history of bradycardia 4. GI f/u for liver mass planned at [facility] 5. Wrap legs, BD, O2 to maintain saO2
[2016-09-22] MEDS: OCTREOTIDE ACETATE 1,200 MCG in DEXTROSE 5%-WATER - 488 ML IVPB SCH (17:33)
[2016-09-22] MEDS: PANTOPRAZOLE SODIUM 80 MG in SODIUM CHLORIDE 100 ML IVPB SCH (17:34)
[2016-09-22] MEDS ORDERED: FUROSEMIDE 40 MG/4 ML INJECTABLE VIAL ONE (17:36)
[2016-09-22 18:51] LABS: MCH 28.2 pg (25.7-33.7); MEAN CELL VOLUME 88.1 fl (80-96); MEAN PLT VOLUME 9.4 fl (7.5-11.1); PLATELET COUNT 204 K/MM3 (134-434); RDW 16.9 % (11.6-15.6); WHITE BLOOD COUNT 5.2 K/mm3 (4.0-10.0)
[2016-09-22 19:10] LABS: CALCIUM 8.7 mg/dL (8.5-10.1); CREATININE 1.1 mg/dL (0.55-1.02)
[2016-09-22] MEDS: ZOLPIDEM TARTRATE 5 MG TABLET PO PRN (22:26)
[2016-09-23] MEDS: DOBUTAMINE 250 MG/D5W - 250 ML IV SCH ×2 (00:10→16:40)
[2016-09-23] MEDS: PANTOPRAZOLE SODIUM 80 MG in SODIUM CHLORIDE 100 ML IVPB SCH ×3 (02:00→22:52)
[2016-09-23 05:58] LABS: EOSINOPHIL 3.6 % (0-4.5); MCH 28.2 pg (25.7-33.7); MEAN PLT VOLUME 8.9 fl (7.5-11.1); NEUTROPHILS 72.1 % (42.8-82.8); PLATELET COUNT 188 K/MM3 (134-434); RDW 17.4 % (11.6-15.6); WHITE BLOOD COUNT 4.2 K/mm3 (4.0-10.0)
[2016-09-23 06:11] LABS: INR 2.66 (0.82-1.09); PROTHROMBIN TIME (PATIENT) 29.9 SEC (9.98-11.88)
[2016-09-23 06:14] LABS: ACTIVATED PTT 42.5 SECONDS (26.9-34.4)
[2016-09-23] MEDS: FUROSEMIDE 40 MG/4 ML INJECTABLE VIAL IVPUSH SCH ×2 (06:21→16:00)
--- NOTE | 2016-09-23 07:06 | PN ---
Progress Note (short form) - Note Progress Note: Chief Complaint: Events noted, notes reviewed. Dyspnea and edema persists although edema is decreasing, dropping H/H requiring transfusion, issue that patient has 2 mechanical valves (MVR+AVR), post TVR and persistent AF that necessitates A/C, denies any chest pain History of Present Illness: Seen and examined in the ICU. Events noted, notes reviewed. Dyspnea and edema persists although edema is decreasing, dropping H/H requiring transfusion, issue that patient has 2 mechanical valves (MVR+AVR), post TVR and persistent AF that necessitates A/C, denies any chest pain On Dobuatmine and Octreotide drips Dobutamine initiated to attempt to improve RV output since most of her clinical presentation is related to RV failure with severe pulmonary HTN, Patient and family are aware of data that there is no survival benefits with Dobutamine drip but improvement in functional class Echocardiography dated 09/09/2016 revealed normal LV size and function with mild concentric LVH, severe bi-atrial enlargement, mechanical AVR, MVR, Bio- prosthetic TV, moderate TR with RVSP >60 mmHg Echocardiography dated 03/22/2015 revealed preserved LV function with mild concentric LVH, severe bi-atrial dilatation, mechanical MV and AV prosthesis, TV bio-prosthetic, moderate to severe MR, moderate TR with severe pulmonary HTN RVSP of 67 mHg - Current Medication List Current Medications Acetaminophen (Tylenol -) 650 mg PO Q6H PRN PRN Reason: FEVER OR PAIN Last Admin: 09/22/16 03:33 Dose: 650 mg Albuterol Sulfate (Ventolin 0.083% Nebulizer Soln -) 1 amp NEB Q4H PRN PRN Reason: SHORT OF BREATH/WHEEZING Last Admin: 09/21/16 10:55 Dose: 1 amp Artificial Tears (Artificial Tears) 1 drop OD DAILY PRN PRN Reason: DRY EYES Bacitracin (Bacitracin -) 1 applic TP BID [facility] Last Admin: 09/22/16 22:18 Dose: 1 applic Ferrous Sulfate (Feosol -) 325 mg PO BID [facility] Last Admin: 09/22/16 22:25 Dose: 325 mg Furosemide (Lasix Injection -) 40 mg IVPUSH BID@0600,1400 [facility] Last Admin: 09/23/16 06:21 Dose: 40 mg Dobutamine HCl/Dextrose (Dobutamine 250 Mg/D5w -) 250 mls @ 10.095 mls/hr IV TITR [facility]; 2.5 MCG/KG/MIN PRN Reason: Protocol Last Admin: 09/23/16 00:10 Dose: 20.191 mls/hr Pantoprazole Sodium 80 mg/ (Sodium Chloride) 100 mls @ 10 mls/hr IVPB Q10H [facility] PRN Reason: 8 MG/HR Last Admin: 09/23/16 02:00 Dose: 10 mls/hr Octreotide Acetate 1,200 mcg/ (Dextrose) 500 mls @ 20.83 mls/hr IVPB ASDIR [facility]ARDO ; 50 MCG/HR PRN Reason: Protocol Last Admin: 09/22/16 17:33 Dose: 20.83 mls/hr Losartan Potassium (Cozaar -) 25 mg PO DAILY [facility] Last Admin: 09/22/16 18:50 Dose: 25 mg Metolazone (Zaroxolyn -) 5 mg PO DAILY [facility] Last Admin: 09/22/16 13:15 Dose: 5 mg Durezol 0.05% Opth Drops - Patient Own Med 1 each OD BID [facility] Last Admin: 09/22/16 22:18 Dose: 1 each Spironolactone (Aldactone -) 25 mg PO DAILY [facility] Last Admin: 09/22/16 09:25 Dose: 25 mg Warfarin Sodium (Coumadin -) 2 mg PO DAILY@1800 [facility] Last Admin: 09/21/16 17:54 Dose: 2 mg Zolpidem Tartrate (Ambien -) 5 mg PO HS PRN Last Admin: 09/22/16 22:26 Dose: 5 mg Review of Systems Cardiovascular: As noted above Respiratory: denies: Cough or Sputum Production Gastrointestinal: denies: Nausea, Vomiting, Diarrhea, Constipation or Abdominal Discomfort Musculoskeletal: No Symptoms Reported Endocrine: No Symptoms Reported - Objective Vital Signs: Last Vital Signs Temp Pulse Resp BP Pulse Ox 97.1 F L 80 15 120/49 95 09/23/16 02:00 09/23/16 04:00 09/23/16 04:00 09/23/16 04:00 09/22/16 22:30 Constitutional: No Distress, Calm Neck: Supple positive JVD No bruit Respiratory: Diminished Breath Sounds at the Bases with Basal Rales Cardiovascular: Mechanical Clicks Irregularly irregular Grade 2-3/6 Systolic Gastrointestinal: Soft Benign Normal Bowel Sounds Ext: Bilateral Edema with Bilateral Venous Stasis Changes Labs: CBC, BMP 09/23/16 05:00 BMP from this AM pending INR, PTT INR 2.66 (0.82-1.09) H 09/23/16 05:00 Assessment/Plan ASSESSMENT: 1. 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 Severe pulmonary HTN related to above 3. Post MVR and AVR (mechanical prosthesis) with history of rheumatic heart disease 4. Post TVR (Bio-prosthesis) 5. Permanent atrial fibrillation with slow ventricular response, asymptomatic 6. History of hepatic cirrhosis 7. Acute on CKD 8. Anemia with dropping H/H post transfusion, hematuria +/- GI bleed PLAN: 1. Continue IV Lasix, Zaroxolyn and Aldactone with caution and close monitoring of renal function 2. Continue Coumadin as per INR maintain 2.5-3.5 with clos emonitoring of H/H 3. Continue Cozaar with caution and close monitoring of renal function 4. Continue Dobutamine drip at 2.5 MCG/KG/MIN 5. Monitor H/H and maintain Hg equal or > 8.0 6. Follow BMP from this AM Rose Godoy M.D.
[2016-09-23 07:43] LABS: ALBUMIN 3.2 g/dl (3.4-5.0); CALCIUM 8.6 mg/dL (8.5-10.1); MAGNESIUM 2.5 mg/dL (1.8-2.4)
[2016-09-23 07:47] LABS: BILIRUBIN,TOTAL 1.6 mg/dL (0.2-1.0); CREATININE 1.2 mg/dL (0.55-1.02); PHOSPHOROUS 3.5 mg/dL (2.5-4.9); TOT PROT 6.3 g/dl (6.4-8.2)
[2016-09-23] MEDS: ALBUTEROL SO4 0.083% IH SOL 2.5 MG/3 ML VIAL.NEB. NEB PRN (10:21)
[2016-09-23] MEDS ORDERED: PT OWN MED DRAWER 7, Y5N ONE (10:55)
[2016-09-23] MEDS: SPIRONOLACTONE 25 MG TABLET (FP) PO SCH (10:57)
[2016-09-23] MEDS: LOSARTAN POTASSIUM 50 MG TABLET (FP) PO SCH (10:57)
[2016-09-23] MEDS: METOLAZONE 5 MG TABLET PO SCH (10:57)
[2016-09-23] MEDS: BACITRACIN 30 GM TUBE TOPICAL OINTMENT TP SCH ×2 (10:58→21:37)
[2016-09-23] MEDS: DUREZOL 0.05% OD SCH ×2 (10:59→21:38)
[2016-09-23] MEDS: OPTH OD SCH ×2 (10:59→21:38)
[2016-09-23] MEDS: FERROUS SO4 325 MG TABLET (FP) PO SCH ×2 (11:01→21:37)
--- NOTE | 2016-09-23 11:21 | PN ---
Progress Note, Physician Chief Complaint: AWAKE ALERT FEELING BETTER ON 02 NC - Current Medication List Current Medications: Active Medications Acetaminophen (Tylenol -) 650 mg PO Q6H PRN PRN Reason: FEVER OR PAIN Last Admin: 09/22/16 03:33 Dose: 650 mg Albuterol Sulfate (Ventolin 0.083% Nebulizer Soln -) 1 amp NEB Q4H PRN PRN Reason: SHORT OF BREATH/WHEEZING Last Admin: 09/23/16 10:21 Dose: 1 amp Artificial Tears (Artificial Tears) 1 drop OD DAILY PRN PRN Reason: DRY EYES Bacitracin (Bacitracin -) 1 applic TP BID [facility] Last Admin: 09/23/16 10:58 Dose: 1 applic Ferrous Sulfate (Feosol -) 325 mg PO BID [facility] Last Admin: 09/23/16 11:01 Dose: 325 mg Furosemide (Lasix Injection -) 40 mg IVPUSH BID@0600,1400 [facility] Last Admin: 09/23/16 06:21 Dose: 40 mg Dobutamine HCl/Dextrose (Dobutamine 250 Mg/D5w -) 250 mls @ 10.095 mls/hr IV TITR [facility]; 2.5 MCG/KG/MIN PRN Reason: Protocol Last Admin: 09/23/16 00:10 Dose: 20.191 mls/hr Pantoprazole Sodium 80 mg/ (Sodium Chloride) 100 mls @ 10 mls/hr IVPB Q10H [facility] PRN Reason: 8 MG/HR Last Admin: 09/23/16 02:00 Dose: 10 mls/hr Octreotide Acetate 1,200 mcg/ (Dextrose) 500 mls @ 20.83 mls/hr IVPB ASDIR [facility] ; 50 MCG/HR PRN Reason: Protocol Last Admin: 09/22/16 17:33 Dose: 20.83 mls/hr Losartan Potassium (Cozaar -) 25 mg PO DAILY [facility] Last Admin: 09/23/16 10:57 Dose: 25 mg Metolazone (Zaroxolyn -) 5 mg PO DAILY [facility] Last Admin: 09/23/16 10:57 Dose: 5 mg Durezol 0.05% Opth Drops - Patient Own Med 1 each OD BID [facility] Last Admin: 09/23/16 10:59 Dose: 1 each Spironolactone (Aldactone -) 25 mg PO DAILY [facility] Last Admin: 09/23/16 10:57 Dose: 25 mg Warfarin Sodium (Coumadin -) 2 mg PO DAILY@1800 [facility] Last Admin: 09/21/16 17:54 Dose: 2 mg Zolpidem Tartrate (Ambien -) 5 mg PO HS PRN Last Admin: 09/22/16 22:26 Dose: 5 mg - Objective Vital Signs: Vital Signs Temperature 97.6 F 09/23/16 09:58 Pulse Rate 60 09/23/16 09:58 Respiratory Rate 16 09/23/16 09:58 Blood Pressure 115/53 09/23/16 09:58 O2 Sat by Pulse Oximetry (%) 93 L 09/23/16 08:00 Constitutional: Yes: Mild Distress Eyes: Yes: WNL HENT: Yes: WNL Neck: Yes: WNL Cardiovascular: Yes: Pulse Irregular, Murmur Respiratory: Yes: On Nasal O2, SOB Gastrointestinal: Yes: WNL Musculoskeletal: Yes: Muscle Weakness Extremities: Yes: WNL Edema: Yes Edema: LLE: 2+, RLE: 2+ Peripheral Pulses WNL: Yes Integumentary: Yes: Rash, Venous Stasis Changes Wound/Incision: Yes: Open to air Neurological: Yes: Other ...Motor Strength: LLE (ERYTHEMA), RLE Psychiatric: Yes: WNL Labs: CBC, BMP 09/23/16 05:00 09/23/16 06:00 INR, PTT INR 2.66 (0.82-1.09) H 09/23/16 05:00 Problem List - Problems (1) Anemia Code(s): D64.9 - ANEMIA, UNSPECIFIED Qualifiers: Anemia type: iron deficiency (2) CHF (congestive heart failure) Code(s): I50.9 - HEART FAILURE, UNSPECIFIED Qualifiers: Congestive heart failure type: diastolic Congestive heart failure chronicity: acute on chronic Qualified Code(s): I50.33 - Acute on chronic diastolic (congestive) heart failure (3) Elevated serum creatinine Code(s): R79.89 - OTHER SPECIFIED ABNORMAL FINDINGS OF BLOOD CHEMISTRY (4) Hepatic cirrhosis Code(s): K74.60 - UNSPECIFIED CIRRHOSIS OF LIVER Qualifiers: Hepatic cirrhosis type: unspecified hepatic cirrhosis Ascites presence : without ascites Qualified Code(s): K74.60 - Unspecified cirrhosis of liver (5) Rheumatic heart disease Code(s): I09.9 - RHEUMATIC HEART DISEASE, UNSPECIFIED (6) S/P AVR (aortic valve replacement) Code(s): Z95.2 - PRESENCE OF PROSTHETIC HEART VALVE (7) S/P MVR (mitral valve replacement) Code(s): Z95.2 - PRESENCE OF PROSTHETIC HEART VALVE (9) Shortness of breath Code(s): R06.02 - SHORTNESS OF BREATH Assessment/Plan DIURESINGT WELL ON LASIX, ZAROCYLEN, SPIRONALACTONE, INOTROPIC IV FOR BETTER DIURESIS COUMADIN ADJUSTED DAILY HEPATOCELLULAR HEPATOMA GI FOLLOW UP
--- NOTE | 2016-09-23 12:39 | PN ---
Teaching Attending Note Name of Resident: James Ding ATTENDING PHYSICIAN STATEMENT I saw and evaluated the patient. I reviewed the resident's note and discussed the case with the resident. I agree with the resident's findings and plan as documented. SUBJECTIVE: Pt seen and examined in the ICU. Episode of dark stool overnight. H/H responded appropriately to PRBC transfusion. Remains on dobutamine gtt with good diuretic response. OBJECTIVE: Last Vital Signs Temp Pulse Resp BP Pulse Ox 97.6 F 63 15 135/52 92 L 09/23/16 09:58 09/23/16 12:11 09/23/16 12:00 09/23/16 12:00 09/23/16 12:11 Intake & Output 09/20/16 09/21/16 09/22/16 09/23/16 23:59 23:59 23:59 23:59 Intake Total 630 1832.8 455.6 Output Total 2500 2400 2750 1500 Balance -2500 -1770 -917.2 -1044.4 Weight 144 lb 147 lb 14.883 oz 146 lb 3.2 oz 147 lb 3.2 oz Gen: less tachypneic Heart: RRR Lung: scattered basilar rales Abd: soft, nontender Ext: decreasing edema CBC, BMP 09/23/16 05:00 09/23/16 06:00 INR, PTT INR 2.66 (0.82-1.09) H 09/23/16 05:00 Active Medications Acetaminophen (Tylenol -) 650 mg PO Q6H PRN PRN Reason: FEVER OR PAIN Last Admin: 09/22/16 03:33 Dose: 650 mg Albuterol Sulfate (Ventolin 0.083% Nebulizer Soln -) 1 amp NEB Q4H PRN PRN Reason: SHORT OF BREATH/WHEEZING Last Admin: 09/23/16 10:21 Dose: 1 amp Artificial Tears (Artificial Tears) 1 drop OD DAILY PRN PRN Reason: DRY EYES Bacitracin (Bacitracin -) 1 applic TP BID [facility] Last Admin: 09/23/16 10:58 Dose: 1 applic Ferrous Sulfate (Feosol -) 325 mg PO BID [facility] Last Admin: 09/23/16 11:01 Dose: 325 mg Furosemide (Lasix Injection -) 40 mg IVPUSH BID@0600,1400 [facility] Last Admin: 09/23/16 06:21 Dose: 40 mg Dobutamine HCl/Dextrose (Dobutamine 250 Mg/D5w -) 250 mls @ 10.095 mls/hr IV TITR [facility]; 2.5 MCG/KG/MIN PRN Reason: Protocol Last Admin: 09/23/16 00:10 Dose: 20.191 mls/hr Pantoprazole Sodium 80 mg/ (Sodium Chloride) 100 mls @ 10 mls/hr IVPB Q10H [facility] PRN Reason: 8 MG/HR Last Admin: 09/23/16 02:00 Dose: 10 mls/hr Octreotide Acetate 1,200 mcg/ (Dextrose) 500 mls @ 20.83 mls/hr IVPB ASDIR [facility] ; 50 MCG/HR PRN Reason: Protocol Last Admin: 09/22/16 17:33 Dose: 20.83 mls/hr Losartan Potassium (Cozaar -) 25 mg PO DAILY [facility] Last Admin: 09/23/16 10:57 Dose: 25 mg Metolazone (Zaroxolyn -) 5 mg PO DAILY [facility] Last Admin: 09/23/16 10:57 Dose: 5 mg Durezol 0.05% Opth Drops - Patient Own Med 1 each OD BID [facility] Last Admin: 09/23/16 10:59 Dose: 1 each Spironolactone (Aldactone -) 25 mg PO DAILY [facility] Last Admin: 09/23/16 10:57 Dose: 25 mg Warfarin Sodium (Coumadin -) 2 mg PO DAILY@1800 [facility] Last Admin: 09/21/16 17:54 Dose: 2 mg Zolpidem Tartrate (Ambien -) 5 mg PO HS PRN Last Admin: 09/22/16 22:26 Dose: 5 mg ASSESSMENT AND PLAN: Acute on Chronic LV Diastolic Heart Failure/Right Heart Failure Pulmonary HTN s/p AVR/MVR Atrial Fibrillation Liver Cirrhosis Likely HCC GI Bleed Anemia h/o AVM - continue lasix, aldactone, zaroxolyn - continue dobutamine gtt per cardiology - monitor urine output, creatinine - daily weights, I/Os - BiPAP as needed to assist in work of breathing but pt refusing - rate controlled - monitor H/H - continue protonix, octreotide gtts - GI f/u - continue anticoagulation for now - O2 to keep SpO2 >90% - palliative care evaluation - discuss advanced directives/goals of care
[2016-09-23 13:57] LABS: MCH 29.1 pg (25.7-33.7); MCHC 32.8 g/dl (32.0-36.0); MEAN CELL VOLUME 88.5 fl (80-96); MEAN PLT VOLUME 9.2 fl (7.5-11.1); PLATELET COUNT 188 K/MM3 (134-434); RDW 17.2 % (11.6-15.6); WHITE BLOOD COUNT 4.6 K/mm3 (4.0-10.0)
--- NOTE | 2016-09-23 14:41 | PN ---
Progress Note, Physician History of Present Illness: patient seen ad examined at bedside SOB improved per patient feels better complains of hunger - Current Medication List Current Medications: Active Medications Acetaminophen (Tylenol -) 650 mg PO Q6H PRN PRN Reason: FEVER OR PAIN Last Admin: 09/22/16 03:33 Dose: 650 mg Albuterol Sulfate (Ventolin 0.083% Nebulizer Soln -) 1 amp NEB Q4H PRN PRN Reason: SHORT OF BREATH/WHEEZING Last Admin: 09/23/16 10:21 Dose: 1 amp Artificial Tears (Artificial Tears) 1 drop OD DAILY PRN PRN Reason: DRY EYES Bacitracin (Bacitracin -) 1 applic TP BID [facility] Last Admin: 09/23/16 10:58 Dose: 1 applic Ferrous Sulfate (Feosol -) 325 mg PO BID [facility] Last Admin: 09/23/16 11:01 Dose: 325 mg Furosemide (Lasix Injection -) 40 mg IVPUSH BID@0600,1400 [facility] Last Admin: 09/23/16 06:21 Dose: 40 mg Dobutamine HCl/Dextrose (Dobutamine 250 Mg/D5w -) 250 mls @ 10.095 mls/hr IV TITR [facility]; 2.5 MCG/KG/MIN PRN Reason: Protocol Last Admin: 09/23/16 00:10 Dose: 20.191 mls/hr Pantoprazole Sodium 80 mg/ (Sodium Chloride) 100 mls @ 10 mls/hr IVPB Q10H [facility] PRN Reason: 8 MG/HR Last Admin: 09/23/16 13:11 Dose: 10 mls/hr Octreotide Acetate 1,200 mcg/ (Dextrose) 500 mls @ 20.83 mls/hr IVPB ASDIR [facility] ; 50 MCG/HR PRN Reason: Protocol Last Admin: 09/22/16 17:33 Dose: 20.83 mls/hr Losartan Potassium (Cozaar -) 25 mg PO DAILY [facility] Last Admin: 09/23/16 10:57 Dose: 25 mg Metolazone (Zaroxolyn -) 5 mg PO DAILY [facility] Last Admin: 09/23/16 10:57 Dose: 5 mg Durezol 0.05% Opth Drops - Patient Own Med 1 each OD BID [facility] Last Admin: 09/23/16 10:59 Dose: 1 each Spironolactone (Aldactone -) 25 mg PO DAILY [facility] Last Admin: 09/23/16 10:57 Dose: 25 mg Warfarin Sodium (Coumadin -) 2 mg PO DAILY@1800 [facility] Last Admin: 09/21/16 17:54 Dose: 2 mg Zolpidem Tartrate (Ambien -) 5 mg PO HS PRN Last Admin: 09/22/16 22:26 Dose: 5 mg - Objective Vital Signs: Vital Signs Temperature 98.4 F 09/23/16 14:00 Pulse Rate 60 09/23/16 14:00 Respiratory Rate 24 09/23/16 14:00 Blood Pressure 125/35 09/23/16 14:00 O2 Sat by Pulse Oximetry (%) 92 L 09/23/16 12:11 Constitutional: Yes: Well Nourished no distress Eyes: Yes: Conjunctiva Clear HENT: Yes: Atraumatic, Normocephalic Neck: Yes: Supple, Trachea Midline Cardiovascular: Yes: Pulse Irregular, Murmur (3/6 murmur at apex and RUSB and LUSB), S1, S2 Respiratory: Yes: Other (crackles bilaterally L>R improved) Gastrointestinal: Yes: WNL, Soft ...Rectal Exam: Yes: Other (black stool on glove send for FOBT) Genitourinary: Yes: Dawn Present with light pink colored urine Musculoskeletal: Yes: Muscle Pain Edema: Yes Edema: LLE: 1+, RLE: + significantly improved Integumentary: Yes: Venous Stasis Changes (b/l LE) Neurological: Yes: Alert, Oriented, Cranial Nerves II-XII Intact Labs: CBC, BMP 09/23/16 13:30 09/23/16 06:00 INR, PTT INR 2.66 (0.82-1.09) H 09/23/16 05:00 Assessment/Plan 86F with multiple medical problems admitted for CHF exacerbation transferred to ICU for dobutamine gtt now with possible GI bleed and acute anemia problems list: 1. RADHA 2. aortic valve replacement 3. mitral valve replacement 4. tricuspid valve replacement 5. CHF 6. a-fib 7. anemia 8. hx GI bleed 9. HTN 10. liver cirrhosis 11. CKD Neuro: Neurologically intact pain controlled no issues CV: Patient on dobutamine gtt @ 5 change to 2.5 per cardiology Continue lasix for CHF continue metolazone losartan aldactone restart coumadin 2mg tonight Afib rate controlled Resp: continue to be SOB especially with minimal exertion BiPAP PRN patient currently refusing GI: possible GI bleed FOBT positive Hepatoma and cirrhosis per GI-poor prognosis Palliative care consulted octreotide gtt and protonix gtt per GI Dr. Rojo to see patient will not reverse patient at this time Hemetology: Black tarry stools improving becoming more brown per patient will not reverse INR since has valve replacements s/p 1 unit PRBCs with Hb apporptiately responding to 8 keep Hb>8 recheck Hb renal: acute on chronic renal failure Cr unchanged renal consult appreciated not improving may be new baseline FEN: no fluids no electrolyte abnormalities NPO for GI bleed PPx: On coumadin elevated INR Protonic gtt PT consult Patient seen case discussed with Dr. Herrera
--- NOTE | 2016-09-23 17:58 | PN ---
Progress Note, Physician History of Present Illness: Pt seen and examined at bedside. She feels her lower extremity edema is improving. - Current Medication List Current Medications: Active Medications Acetaminophen (Tylenol -) 650 mg PO Q6H PRN PRN Reason: FEVER OR PAIN Last Admin: 09/22/16 03:33 Dose: 650 mg Albuterol Sulfate (Ventolin 0.083% Nebulizer Soln -) 1 amp NEB Q4H PRN PRN Reason: SHORT OF BREATH/WHEEZING Last Admin: 09/23/16 10:21 Dose: 1 amp Artificial Tears (Artificial Tears) 1 drop OD DAILY PRN PRN Reason: DRY EYES Bacitracin (Bacitracin -) 1 applic TP BID ABELARDO Last Admin: 09/23/16 10:58 Dose: 1 applic Ferrous Sulfate (Feosol -) 325 mg PO BID ABELARDO Last Admin: 09/23/16 11:01 Dose: 325 mg Furosemide (Lasix Injection -) 40 mg IVPUSH BID@0600,1400 ABELARDO Last Admin: 09/23/16 16:00 Dose: 40 mg Dobutamine HCl/Dextrose (Dobutamine 250 Mg/D5w -) 250 mls @ 10.095 mls/hr IV TITR ABELARDO; 2.5 MCG/KG/MIN PRN Reason: Protocol Last Admin: 09/23/16 16:40 Dose: Not Given Pantoprazole Sodium 80 mg/ (Sodium Chloride) 100 mls @ 10 mls/hr IVPB Q10H ABELARDO PRN Reason: 8 MG/HR Last Admin: 09/23/16 13:11 Dose: 10 mls/hr Octreotide Acetate 1,200 mcg/ (Dextrose) 500 mls @ 20.83 mls/hr IVPB ASDIR ABELARDO ; 50 MCG/HR PRN Reason: Protocol Last Admin: 09/22/16 17:33 Dose: 20.83 mls/hr Losartan Potassium (Cozaar -) 25 mg PO DAILY ABELARDO Last Admin: 09/23/16 10:57 Dose: 25 mg Metolazone (Zaroxolyn -) 5 mg PO DAILY ABELARDO Last Admin: 09/23/16 10:57 Dose: 5 mg Durezol 0.05% Opth Drops - Patient Own Med 1 each OD BID ABELARDO Last Admin: 09/23/16 10:59 Dose: 1 each Spironolactone (Aldactone -) 25 mg PO DAILY ABELARDO Last Admin: 09/23/16 10:57 Dose: 25 mg Warfarin Sodium (Coumadin -) 2 mg PO DAILY@1800 [facility] Last Admin: 09/21/16 17:54 Dose: 2 mg Zolpidem Tartrate (Ambien -) 5 mg PO HS PRN Last Admin: 09/22/16 22:26 Dose: 5 mg - Objective Vital Signs: Vital Signs Temperature 98.4 F 09/23/16 14:00 Pulse Rate 72 09/23/16 16:00 Respiratory Rate 16 09/23/16 16:00 Blood Pressure 113/69 09/23/16 16:00 O2 Sat by Pulse Oximetry (%) 98 09/23/16 16:39 Constitutional: Yes: Calm Eyes: Yes: Conjunctiva Clear HENT: Yes: Atraumatic Neck: Yes: Supple Cardiovascular: Yes: S1, S2 Respiratory: Yes: Diminished, On Nasal O2 Gastrointestinal: Yes: Soft Genitourinary: Yes: Dawn Present, Hematuria Edema: Yes Edema: LLE: 1+, RLE: 1+ Neurological: Yes: Oriented Psychiatric: Yes: Oriented Labs: CBC, BMP 09/23/16 13:30 09/23/16 06:00 INR, PTT INR 2.66 (0.82-1.09) H 09/23/16 05:00 Problem List - Problems (1) Anemia Code(s): D64.9 - ANEMIA, UNSPECIFIED Qualifiers: Anemia type: iron deficiency (2) CHF (congestive heart failure) Code(s): I50.9 - HEART FAILURE, UNSPECIFIED Qualifiers: Congestive heart failure type: diastolic Congestive heart failure chronicity: acute on chronic Qualified Code(s): I50.33 - Acute on chronic diastolic (congestive) heart failure (3) Cholelithiasis Code(s): K80.20 - CALCULUS OF GALLBLADDER W/O CHOLECYSTITIS W/O OBSTRUCTION Qualifiers: Cholelithiasis location: gallbladder Cholecystitis presence: without cholecystitis Biliary obstruction: without biliary obstruction Qualified Code(s): K80.20 - Calculus of gallbladder without cholecystitis without obstruction (4) Hepatic cirrhosis Code(s): K74.60 - UNSPECIFIED CIRRHOSIS OF LIVER Qualifiers: Hepatic cirrhosis type: unspecified hepatic cirrhosis Ascites presence : without ascites Qualified Code(s): K74.60 - Unspecified cirrhosis of liver (5) S/P AVR (aortic valve replacement) Code(s): Z95.2 - PRESENCE OF PROSTHETIC HEART VALVE (6) S/P MVR (mitral valve replacement) Code(s): Z95.2 - PRESENCE OF PROSTHETIC HEART VALVE (8) Shortness of breath Code(s): R06.02 - SHORTNESS OF BREATH (9) RADHA (acute kidney injury) Code(s): N17.9 - ACUTE KIDNEY FAILURE, UNSPECIFIED Assessment/Plan Current Medications Generic Name Dose Route Start Last Admin Trade Name Freq PRN Reason Stop Dose Admin Acetaminophen 650 mg 09/05/16 20:01 09/22/16 03:33 Tylenol - PO 650 mg Q6H PRN Administration FEVER OR PAIN Albuterol Sulfate 1 amp 09/13/16 14:36 09/23/16 10:21 Ventolin 0.083% Nebulizer Soln - NEB 1 amp Q4H PRN Administration SHORT OF BREATH/WHEEZING Artificial Tears 1 drop 09/05/16 20:04 Artificial Tears OD DAILY PRN DRY EYES Bacitracin 1 applic 09/14/16 22:00 09/23/16 10:58 Bacitracin - TP 1 applic BID ABELARDO Administration Ferrous Sulfate 325 mg 09/05/16 22:00 09/23/16 11:01 Feosol - PO 325 mg BID ABELARDO Administration Furosemide 40 mg 09/06/16 14:00 09/23/16 16:00 Lasix Injection - IVPUSH 40 mg BID@0600,1400 ABELARDO Administration Dobutamine HCl/Dextrose 250 mls @ 10.095 mls/hr 09/21/16 11:15 09/23/16 16:40 Dobutamine 250 Mg/D5w - IV Not Given TITR ABELARDO Protocol 2.5 MCG/KG/MIN Pantoprazole Sodium 80 mg/ 100 mls @ 10 mls/hr 09/22/16 15:30 09/23/16 13:11 Sodium Chloride IVPB 10 mls/hr Q10H ABELARDO Administration 8 MG/HR Octreotide Acetate 1,200 mcg/ 500 mls @ 20.83 mls/hr 09/22/16 14:30 09/22/16 17 :33 Dextrose IVPB 20.83 mls/hr ASDIR ABELARDO Administration Protocol 50 MCG/HR Losartan Potassium 25 mg 09/06/16 10:00 09/23/16 10:57 Cozaar - PO 25 mg DAILY ABELARDO Administration Metolazone 5 mg 09/19/16 15:15 09/23/16 10:57 Zaroxolyn - PO 5 mg DAILY ABELARDO Administration Durezol 0.05% Opth 1 each 09/07/16 22:00 09/23/16 10:59 Drops - Patient Own OD 1 each Med BID ABELARDO Administration Spironolactone 25 mg 09/09/16 10:15 09/23/16 10:57 Aldactone - PO 25 mg DAILY ABELARDO Administration Warfarin Sodium 2 mg 09/21/16 18:00 09/21/16 17:54 Coumadin - PO 2 mg DAILY@1800 ABELARDO Administration Zolpidem Tartrate 5 mg 09/17/16 00:26 09/22/16 22:26 Ambien - PO 5 mg HS PRN Administration Impression 1. RADHA 2. aortic valve replacement 3. mitral valve replacement 4. tricuspid valve replacement 5. CHF 6. a-fib 7. anemia 8. hx GI bleed 9. HTN 10. liver cirrhosis 11. CKD Plan - check ua and if positive send culture, spoke to nurse - renal function is stable - cont with diuretics - volume status is improving - case discussed in detail with family - may need to settle for higher creatinine to keep pt euvolemic - monitor INR - will follow Dr Bo
--- NOTE | 2016-09-23 18:00 | PN ---
GI Progress Note Subjective: GASTROENTEROLOGY CALLED TO REVISIT PATIENT FOR MELENA. REVIEWED CASE WITH RESIDENT YESTERDAY AND SHE WAS PLACED ON OCTREOTIDE AND PROTONIX, COUMADIN/INR CAN NOT BE REVERSED , H&H STABLE POST ONE UNIT BLOOD TRANSFUSION, HER CARDIAC/RESPIRATORY STATUS IS STILL SEVERELY COMPROMISED, I SPOKE WITH ONCOLOGY AND TREATMENT FOR HEPATOMA QUESTIONABLE DUE TO HER RESPIRATORY AND CARDIAC STATUS I SPOKE WITH PATIENT AND FAMILY TODAY ABOUT LEVEL OF CARE THE PATIENT DESIRES. THEY MET WITH PALLIATIVE CARE TEAM TODAY - Objective Vital Signs: Vital Signs Temperature 98.4 F 09/23/16 14:00 Pulse Rate 72 09/23/16 16:00 Respiratory Rate 16 09/23/16 16:00 Blood Pressure 113/69 09/23/16 16:00 O2 Sat by Pulse Oximetry (%) 98 09/23/16 16:39 Constitutional: Other (SOB IN BED) Eyes: Yes: Sclera Icterus HENT: Yes: Normocephalic Neck: Yes: Supple Cardiovascular: Yes: Murmur Respiratory: Yes: Rhonchi, SOB Gastrointestinal Inspection: Yes: WNL ...Palpate: Yes: Hepatomegaly, Mass Extremities: Yes: Other (WRAPPED) Labs: CBC, BMP 09/23/16 13:30 09/23/16 06:00 INR, PTT INR 2.66 (0.82-1.09) H 09/23/16 05:00 Laboratory Tests 09/23/16 06:00 Sodium 142 Potassium 4.2 Chloride 93 L Carbon Dioxide 42 H Anion Gap 7 L BUN 81 H Creatinine 1.2 H Total Bilirubin 1.6 H D AST 140 H ALT 61 Alkaline Phosphatase 130 H Problem List - Problems (1) Hepatocellular carcinoma Assessment/Plan: BLEEDING SEEMS TO HAVE SLOWED OR STOPPED. AT THIS POINT HER HEPATOMA IS NOT TREATABLE. THE HIGH RISKS OF ENDOSCOPY HAVE BEEN DISCUSSED WITH THE FAMILY AND THE PATIENT. THE PATIENT IS CONSIDERING HER OPTIONS. THEY WILL MAKE A DECISION TOMORROW. SHE IS AT HIGH RISK FOR ANY INVASIVE PROCEDURE. HER BLEEDING HAS SLOWED OR STOPPED. I WOULD CONTINUE PROTONIX AND OCTREOTIDE, FOLLOW CBC, ADVANCE HER DIET TO CLEARS TONIGHT, AND TRY TO KEEP HER INR AT THE LOWEST LEVEL NEEDED. TRANSFUSE NEEDED AND TOLERATED ICU TIME 45 MINUTES Code(s): C22.0 - LIVER CELL CARCINOMA (2) Liver mass Code(s): R16.0 - HEPATOMEGALY, NOT ELSEWHERE CLASSIFIED (3) Hepatic cirrhosis Code(s): K74.60 - UNSPECIFIED CIRRHOSIS OF LIVER Qualifiers: Qualified Code(s): K74.60 - Unspecified cirrhosis of liver (4) RADHA (acute kidney injury) Code(s): N17.9 - ACUTE KIDNEY FAILURE, UNSPECIFIED (5) Anemia Code(s): D64.9 - ANEMIA, UNSPECIFIED (6) CHF (congestive heart failure) Code(s): I50.9 - HEART FAILURE, UNSPECIFIED Qualifiers: Qualified Code(s): I50.33 - Acute on chronic diastolic (congestive) heart failure (7) Cholelithiasis Code(s): K80.20 - CALCULUS OF GALLBLADDER W/O CHOLECYSTITIS W/O OBSTRUCTION Qualifiers: Qualified Code(s): K80.20 - Calculus of gallbladder without cholecystitis without obstruction
[2016-09-23] MEDS: OCTREOTIDE ACETATE 1,200 MCG in DEXTROSE 5%-WATER - 488 ML IVPB SCH (18:31)
[2016-09-23] MEDS: WARFARIN NA 2 MG TABLET (UD) PO SCH (18:32)
[2016-09-23] MEDS: ZOLPIDEM TARTRATE 5 MG TABLET PO PRN (23:00)
[2016-09-24 05:50] LABS: BASOPHIL 0.6 % (0-2.0); MCH 27.7 pg (25.7-33.7); MCHC 31.5 g/dl (32.0-36.0); MEAN CELL VOLUME 87.9 fl (80-96); PLATELET COUNT 200 K/MM3 (134-434); WHITE BLOOD COUNT 6.3 K/mm3 (4.0-10.0)
[2016-09-24 06:10] LABS: INR 2.65 (0.82-1.09); PROTHROMBIN TIME (PATIENT) 29.7 SEC (9.98-11.88)
[2016-09-24 06:11] LABS: ACTIVATED PTT 42.2 SECONDS (26.9-34.4)
[2016-09-24 06:20] LABS: ALBUMIN 2.8 g/dl (3.4-5.0); BILIRUBIN,TOTAL 1.2 mg/dL (0.2-1.0); CALCIUM 8.4 mg/dL (8.5-10.1); CREATININE 1.2 mg/dL (0.55-1.02); MAGNESIUM 2.4 mg/dL (1.8-2.4); PHOSPHOROUS 3.3 mg/dL (2.5-4.9); TOT PROT 5.8 g/dl (6.4-8.2)
[2016-09-24 07:55] LABS: URINE APPEARANCE SLCLOUDY; URINE BILIRUBIN NEGATIVE (NEGATIVE); URINE COLOR YELLOW; URINE GLUCOSE (UA) NEGATIVE (NEGATIVE); URINE KETONE NEGATIVE (NEGATIVE); URINE NITRITE NEGATIVE (NEGATIVE); URINE UROBILINOGEN NEGATIVE E.U./dl (0.2-1.0)
[2016-09-24] MEDS: FUROSEMIDE 40 MG/4 ML INJECTABLE VIAL IVPUSH SCH ×2 (08:04→14:22)
[2016-09-24] MEDS: PANTOPRAZOLE SODIUM 80 MG in SODIUM CHLORIDE 100 ML IVPB SCH ×2 (08:04→16:56)
[2016-09-24 08:38] LABS: URINE BLOOD 3+ (NEGATIVE); URINE LEUK ESTERASE 1+ (NEGATIVE); URINE PROTEIN 1+ (NEGATIVE)
[2016-09-24 08:44] LABS: URINE HYALINE CAST 6 /lpf; URINE MUCUS RARE; URINE RBC 38 /hpf (0-3); URINE WBC 2 /hpf (3-5)
[2016-09-24] MEDS: SPIRONOLACTONE 25 MG TABLET (FP) PO SCH (10:04)
[2016-09-24] MEDS: DUREZOL 0.05% OD SCH ×2 (10:05→21:17)
[2016-09-24] MEDS: BACITRACIN 30 GM TUBE TOPICAL OINTMENT TP SCH ×2 (10:05→21:17)
[2016-09-24] MEDS: FERROUS SO4 325 MG TABLET (FP) PO SCH ×2 (10:05→21:16)
[2016-09-24] MEDS: LOSARTAN POTASSIUM 50 MG TABLET (FP) PO SCH (10:05)
[2016-09-24] MEDS: OPTH OD SCH ×2 (10:05→21:17)
[2016-09-24] MEDS: METOLAZONE 5 MG TABLET PO SCH ×2 (10:07→13:37)
--- NOTE | 2016-09-24 11:31 | PN ---
Progress Note, Physician History of Present Illness: Dyspnea, LE edema and ascites improving with inotropic diuresis and compression therapy, melena noted, Hgb stable post-transfusion. - Current Medication List Current Medications: Active Medications Acetaminophen (Tylenol -) 650 mg PO Q6H PRN PRN Reason: FEVER OR PAIN Last Admin: 09/22/16 03:33 Dose: 650 mg Albuterol Sulfate (Ventolin 0.083% Nebulizer Soln -) 1 amp NEB Q4H PRN PRN Reason: SHORT OF BREATH/WHEEZING Last Admin: 09/23/16 10:21 Dose: 1 amp Artificial Tears (Artificial Tears) 1 drop OD DAILY PRN PRN Reason: DRY EYES Bacitracin (Bacitracin -) 1 applic TP BID REPLACED BY [facility] Last Admin: 09/24/16 10:05 Dose: 1 applic Ferrous Sulfate (Feosol -) 325 mg PO BID ABELARDO Last Admin: 09/24/16 10:05 Dose: 325 mg Furosemide (Lasix Injection -) 40 mg IVPUSH BID@0600,1400 REPLACED BY [facility] Last Admin: 09/24/16 08:04 Dose: 40 mg Dobutamine HCl/Dextrose (Dobutamine 250 Mg/D5w -) 250 mls @ 10.095 mls/hr IV TITR ABELARDO; 2.5 MCG/KG/MIN PRN Reason: Protocol Last Admin: 09/23/16 16:40 Dose: Not Given Pantoprazole Sodium 80 mg/ (Sodium Chloride) 100 mls @ 10 mls/hr IVPB Q10H ABELARDO PRN Reason: 8 MG/HR Last Admin: 09/24/16 08:04 Dose: 10 mls/hr Octreotide Acetate 1,200 mcg/ (Dextrose) 500 mls @ 20.83 mls/hr IVPB ASDIR ABELARDO ; 50 MCG/HR PRN Reason: Protocol Last Admin: 09/23/16 18:31 Dose: 20.83 mls/hr Losartan Potassium (Cozaar -) 25 mg PO DAILY REPLACED BY [facility] Last Admin: 09/24/16 10:05 Dose: 25 mg Metolazone (Zaroxolyn -) 5 mg PO DAILY ABELARDO Last Admin: 09/24/16 10:07 Dose: Not Given Durezol 0.05% Opth Drops - Patient Own Med 1 each OD BID REPLACED BY [facility] Last Admin: 09/24/16 10:05 Dose: 1 each Spironolactone (Aldactone -) 25 mg PO DAILY REPLACED BY [facility] Last Admin: 09/24/16 10:04 Dose: 25 mg Warfarin Sodium (Coumadin -) 2 mg PO DAILY@1800 [facility]PLACED [facility] Last Admin: 09/23/16 18:32 Dose: 2 mg Zolpidem Tartrate (Ambien -) 5 mg PO HS PRN Last Admin: 09/23/16 23:00 Dose: 5 mg - Objective Vital Signs: Vital Signs Temperature 98.2 F 09/24/16 04:00 Pulse Rate 61 09/24/16 08:00 Respiratory Rate 20 09/24/16 08:00 Blood Pressure 113/48 09/24/16 08:00 O2 Sat by Pulse Oximetry (%) 97 09/24/16 09:00 Constitutional: Yes: No Distress, Calm, Thin Neck: Yes: Supple Cardiovascular: Yes: Pulse Irregular, Murmur (2/6 SM), Other (crisp mechanical valve sounds) Respiratory: Yes: Regular, Diminished, On Nasal O2 Gastrointestinal: Yes: Normal Bowel Sounds, Soft Edema: Yes Edema: LLE: Trace, RLE: Trace Labs: CBC, BMP 09/24/16 05:00 09/24/16 05:00 INR, PTT INR 2.65 (0.82-1.09) H 09/24/16 05:00 - ....Imaging Chest X-ray: Report Reviewed (Congestion improved) Problem List - Problems (1) CHF (congestive heart failure) Code(s): I50.9 - HEART FAILURE, UNSPECIFIED Qualifiers: Congestive heart failure type: diastolic Congestive heart failure chronicity: acute on chronic Qualified Code(s): I50.33 - Acute on chronic diastolic (congestive) heart failure (2) Rheumatic heart disease Code(s): I09.9 - RHEUMATIC HEART DISEASE, UNSPECIFIED (3) S/P AVR (aortic valve replacement) Code(s): Z95.2 - PRESENCE OF PROSTHETIC HEART VALVE (4) S/P MVR (mitral valve replacement) Code(s): Z95.2 - PRESENCE OF PROSTHETIC HEART VALVE (6) Shortness of breath Code(s): R06.02 - SHORTNESS OF BREATH (7) Permanent atrial fibrillation Code(s): I48.2 - CHRONIC ATRIAL FIBRILLATION (8) Pulmonary hypertension Code(s): I27.2 - OTHER SECONDARY PULMONARY HYPERTENSION (9) Venous stasis dermatitis of both lower extremities Code(s): I83.11 - VARICOSE VEINS OF RIGHT LOWER EXTREMITY WITH INFLAMMATION I83.12 - VARICOSE VEINS OF LEFT LOWER EXTREMITY WITH INFLAMMATION (10) Cholelithiasis Code(s): K80.20 - CALCULUS OF GALLBLADDER W/O CHOLECYSTITIS W/O OBSTRUCTION Qualifiers: Cholelithiasis location: gallbladder Cholecystitis presence: without cholecystitis Biliary obstruction: without biliary obstruction Qualified Code(s): K80.20 - Calculus of gallbladder without cholecystitis without obstruction (11) Hepatic cirrhosis Code(s): K74.60 - UNSPECIFIED CIRRHOSIS OF LIVER Qualifiers: Hepatic cirrhosis type: unspecified hepatic cirrhosis Ascites presence : without ascites Qualified Code(s): K74.60 - Unspecified cirrhosis of liver (12) Hepatocellular carcinoma Code(s): C22.0 - LIVER CELL CARCINOMA Assessment/Plan 1. 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 Severe pulmonary HTN related to above 3. Post MVR and AVR (mechanical prosthesis) with history of rheumatic heart disease 4. Post TVR (Bio-prosthesis) 5. Permanent atrial fibrillation with slow ventricular response, asymptomatic 6. History of hepatic cirrhosis with likely HCC 7. Acute on CKD 8. Anemia with dropping H/H post transfusion, 2/2 GI bleed, h/o AVM PLAN: 1. Continue Lasix 40 IV bid, Zaroxolyn 5 qd and Aldactone 25 qd with caution and close monitoring of renal function 2. Continue Coumadin as per INR maintain 2.5-3.0 with close monitoring of H/H 3. Continue Cozaar 25 qd with caution and close monitoring of renal function 4. Wean off Dobutamine drip 5. Monitor H/H and maintain Hg equal or > 8.0, protonix, octreotide gtts, endoscopy is risky 6. O2 to maintain saO2
--- NOTE | 2016-09-24 12:26 | PN ---
Progress Note, Physician Chief Complaint: HAD D/W PATIENT & FAMILY BEDSIDE FAMILY & PATIENT AWARE OF LIVER DIAGNOSIS - Current Medication List Current Medications: Active Medications Acetaminophen (Tylenol -) 650 mg PO Q6H PRN PRN Reason: FEVER OR PAIN Last Admin: 09/22/16 03:33 Dose: 650 mg Albuterol Sulfate (Ventolin 0.083% Nebulizer Soln -) 1 amp NEB Q4H PRN PRN Reason: SHORT OF BREATH/WHEEZING Last Admin: 09/23/16 10:21 Dose: 1 amp Artificial Tears (Artificial Tears) 1 drop OD DAILY PRN PRN Reason: DRY EYES Bacitracin (Bacitracin -) 1 applic TP BID ABELARDO Last Admin: 09/24/16 10:05 Dose: 1 applic Ferrous Sulfate (Feosol -) 325 mg PO BID ABELARDO Last Admin: 09/24/16 10:05 Dose: 325 mg Furosemide (Lasix Injection -) 40 mg IVPUSH BID@0600,1400 ABELARDO Last Admin: 09/24/16 08:04 Dose: 40 mg Dobutamine HCl/Dextrose (Dobutamine 250 Mg/D5w -) 250 mls @ 10.095 mls/hr IV TITR ABELARDO; 2.5 MCG/KG/MIN PRN Reason: Protocol Last Admin: 09/23/16 16:40 Dose: Not Given Pantoprazole Sodium 80 mg/ (Sodium Chloride) 100 mls @ 10 mls/hr IVPB Q10H ABELARDO PRN Reason: 8 MG/HR Last Admin: 09/24/16 08:04 Dose: 10 mls/hr Octreotide Acetate 1,200 mcg/ (Dextrose) 500 mls @ 20.83 mls/hr IVPB ASDIR ABELARDO ; 50 MCG/HR PRN Reason: Protocol Last Admin: 09/23/16 18:31 Dose: 20.83 mls/hr Losartan Potassium (Cozaar -) 25 mg PO DAILY ABELARDO Last Admin: 09/24/16 10:05 Dose: 25 mg Metolazone (Zaroxolyn -) 5 mg PO DAILY ABELARDO Last Admin: 09/24/16 10:07 Dose: Not Given Durezol 0.05% Opth Drops - Patient Own Med 1 each OD BID ABELARDO Last Admin: 09/24/16 10:05 Dose: 1 each Spironolactone (Aldactone -) 25 mg PO DAILY [facility] Last Admin: 09/24/16 10:04 Dose: 25 mg Warfarin Sodium (Coumadin -) 2 mg PO DAILY@1800 [facility] Last Admin: 09/23/16 18:32 Dose: 2 mg Zolpidem Tartrate (Ambien -) 5 mg PO HS PRN Last Admin: 09/23/16 23:00 Dose: 5 mg - Objective Vital Signs: Vital Signs Temperature 98.2 F 09/24/16 04:00 Pulse Rate 61 09/24/16 08:00 Respiratory Rate 20 09/24/16 08:00 Blood Pressure 113/48 09/24/16 08:00 O2 Sat by Pulse Oximetry (%) 97 09/24/16 09:00 Constitutional: Yes: Mild Distress Cardiovascular: Yes: S1, S2 Respiratory: Yes: Diminished, Wheezes Gastrointestinal: Yes: Normal Bowel Sounds, Soft Edema: Yes Labs: CBC, BMP 09/24/16 05:00 09/24/16 05:00 INR, PTT INR 2.65 (0.82-1.09) H 09/24/16 05:00 Problem List - Problems (1) Anemia Code(s): D64.9 - ANEMIA, UNSPECIFIED (2) CHF (congestive heart failure) Code(s): I50.9 - HEART FAILURE, UNSPECIFIED Qualifiers: Qualified Code(s): I50.33 - Acute on chronic diastolic (congestive) heart failure (3) Elevated serum creatinine Code(s): R79.89 - OTHER SPECIFIED ABNORMAL FINDINGS OF BLOOD CHEMISTRY (4) Hepatic cirrhosis Code(s): K74.60 - UNSPECIFIED CIRRHOSIS OF LIVER Qualifiers: Qualified Code(s): K74.60 - Unspecified cirrhosis of liver (5) Rheumatic heart disease Code(s): I09.9 - RHEUMATIC HEART DISEASE, UNSPECIFIED (6) S/P AVR (aortic valve replacement) Code(s): Z95.2 - PRESENCE OF PROSTHETIC HEART VALVE (7) S/P MVR (mitral valve replacement) Code(s): Z95.2 - PRESENCE OF PROSTHETIC HEART VALVE (8) Shortness of breath Code(s): R06.02 - SHORTNESS OF BREATH Assessment/Plan (1) Anemia Code(s): D64.9 - ANEMIA, UNSPECIFIED Qualifiers: Anemia type: iron deficiency HGB 8 GIVEN pRBC GIB IMPROVED (2) CHF (congestive heart failure) Code(s): I50.9 - HEART FAILURE, UNSPECIFIED Qualifiers: Congestive heart failure type: diastolic Congestive heart failure chronicity: acute on chronic Qualified Code(s): I50.33 - Acute on chronic diastolic (congestive) heart failure APPRECIATE CARDIO CONSULT (3) Elevated serum creatinine Code(s): R79.89 - OTHER SPECIFIED ABNORMAL FINDINGS OF BLOOD CHEMISTRY Cr 1.2 RENAL CONSULT APPRECIATED (4) Hepatic cirrhosis Code(s): K74.60 - UNSPECIFIED CIRRHOSIS OF LIVER Qualifiers: Hepatic cirrhosis type: unspecified hepatic cirrhosis Ascites presence : without ascites Qualified Code(s): K74.60 - Unspecified cirrhosis of liver APPRECIATE GI CONSULT HEPATOMA IS NOT TREATABLE PATIENT IS HIGH RISK PROTONIX AND OCTREOTIDE (5) Rheumatic heart disease Code(s): I09.9 - RHEUMATIC HEART DISEASE, UNSPECIFIED (6) S/P AVR (aortic valve replacement) Code(s): Z95.2 - PRESENCE OF PROSTHETIC HEART VALVE INR THERAPEUTIC (7) S/P MVR (mitral valve replacement) Code(s): Z95.2 - PRESENCE OF PROSTHETIC HEART VALVE (9) Shortness of breath Code(s): R06.02 - SHORTNESS OF BREATH [employer]
--- NOTE | 2016-09-24 13:16 | PN ---
Teaching Attending Note Name of Resident: James Ding ATTENDING PHYSICIAN STATEMENT I saw and evaluated the patient. I reviewed the resident's note and discussed the case with the resident. I agree with the resident's findings and plan as documented. SUBJECTIVE: Pt seen and examined in the ICU. Breathing continues to improve. No chest pain. Continues to diurese well on dobutamine gtt. Dark stools and hematuria overnight. OBJECTIVE: Last Vital Signs Temp Pulse Resp BP Pulse Ox 98.2 F 61 20 113/48 94 L 09/24/16 04:00 09/24/16 08:00 09/24/16 08:00 09/24/16 08:00 09/24/16 12:49 Intake & Output 09/21/16 09/22/16 09/23/16 09/24/16 23:59 23:59 23:59 23:59 Intake Total 630 1832.8 1963.6 528.8 Output Total 2400 2750 3000 2300 Balance -1770 -917.2 -1036.4 -1771.2 Weight 147 lb 14.883 oz 146 lb 3.2 oz 147 lb 3.2 oz 138 lb Gen: less tachypneic Heart: RRR Lung: scattered rales Abd: soft, nontender Ext: decreasing edema CBC, BMP 09/24/16 05:00 09/24/16 05:00 Active Medications Acetaminophen (Tylenol -) 650 mg PO Q6H PRN PRN Reason: FEVER OR PAIN Last Admin: 09/22/16 03:33 Dose: 650 mg Albuterol Sulfate (Ventolin 0.083% Nebulizer Soln -) 1 amp NEB Q4H PRN PRN Reason: SHORT OF BREATH/WHEEZING Last Admin: 09/23/16 10:21 Dose: 1 amp Artificial Tears (Artificial Tears) 1 drop OD DAILY PRN PRN Reason: DRY EYES Bacitracin (Bacitracin -) 1 applic TP BID [facility] Last Admin: 09/24/16 10:05 Dose: 1 applic Ferrous Sulfate (Feosol -) 325 mg PO BID [facility] Last Admin: 09/24/16 10:05 Dose: 325 mg Furosemide (Lasix Injection -) 40 mg IVPUSH BID@0600,1400 [facility] Last Admin: 09/24/16 08:04 Dose: 40 mg Dobutamine HCl/Dextrose (Dobutamine 250 Mg/D5w -) 250 mls @ 10.095 mls/hr IV TITR ABELARDO; 2.5 MCG/KG/MIN PRN Reason: Protocol Last Admin: 09/23/16 16:40 Dose: Not Given Pantoprazole Sodium 80 mg/ (Sodium Chloride) 100 mls @ 10 mls/hr IVPB Q10H ABELARDO PRN Reason: 8 MG/HR Last Admin: 09/24/16 08:04 Dose: 10 mls/hr Octreotide Acetate 1,200 mcg/ (Dextrose) 500 mls @ 20.83 mls/hr IVPB ASDIR ABELARDO ; 50 MCG/HR PRN Reason: Protocol Last Admin: 09/23/16 18:31 Dose: 20.83 mls/hr Losartan Potassium (Cozaar -) 25 mg PO DAILY [facility] Last Admin: 09/24/16 10:05 Dose: 25 mg Metolazone (Zaroxolyn -) 5 mg PO DAILY [facility] Last Admin: 09/24/16 10:07 Dose: Not Given Durezol 0.05% Opth Drops - Patient Own Med 1 each OD BID [facility] Last Admin: 09/24/16 10:05 Dose: 1 each Spironolactone (Aldactone -) 25 mg PO DAILY [facility] Last Admin: 09/24/16 10:04 Dose: 25 mg Warfarin Sodium (Coumadin -) 2 mg PO DAILY@1800 [facility] Last Admin: 09/23/16 18:32 Dose: 2 mg Zolpidem Tartrate (Ambien -) 5 mg PO HS PRN Last Admin: 09/23/16 23:00 Dose: 5 mg ASSESSMENT AND PLAN: Acute on Chronic LV Diastolic Heart Failure/Right Heart Failure Pulmonary HTN s/p AVR/MVR Atrial Fibrillation Liver Cirrhosis Likely HCC GI Bleed Anemia h/o AVM - continue lasix, aldactone, zaroxolyn - taper off dobutamine gtt per cardiology - monitor urine output, creatinine - daily weights, I/Os - rate controlled - monitor H/H - continue protonix, octreotide gtts - continue anticoagulation for now - O2 to keep SpO2 >90% - palliative care evaluation - discuss advanced directives/goals of care/family considering hospice placement
--- NOTE | 2016-09-24 13:36 | PN ---
Progress Note, Physician History of Present Illness: Pt seen and examined at bedside. She is awake and alert. - Current Medication List Current Medications: Active Medications Acetaminophen (Tylenol -) 650 mg PO Q6H PRN PRN Reason: FEVER OR PAIN Last Admin: 09/22/16 03:33 Dose: 650 mg Albuterol Sulfate (Ventolin 0.083% Nebulizer Soln -) 1 amp NEB Q4H PRN PRN Reason: SHORT OF BREATH/WHEEZING Last Admin: 09/23/16 10:21 Dose: 1 amp Artificial Tears (Artificial Tears) 1 drop OD DAILY PRN PRN Reason: DRY EYES Bacitracin (Bacitracin -) 1 applic TP BID ABELARDO Last Admin: 09/24/16 10:05 Dose: 1 applic Ferrous Sulfate (Feosol -) 325 mg PO BID ABELARDO Last Admin: 09/24/16 10:05 Dose: 325 mg Furosemide (Lasix Injection -) 40 mg IVPUSH BID@0600,1400 [facility] Last Admin: 09/24/16 08:04 Dose: 40 mg Dobutamine HCl/Dextrose (Dobutamine 250 Mg/D5w -) 250 mls @ 10.095 mls/hr IV TITR ABELARDO; 2.5 MCG/KG/MIN PRN Reason: Protocol Last Admin: 09/23/16 16:40 Dose: Not Given Pantoprazole Sodium 80 mg/ (Sodium Chloride) 100 mls @ 10 mls/hr IVPB Q10H ABELARDO PRN Reason: 8 MG/HR Last Admin: 09/24/16 08:04 Dose: 10 mls/hr Octreotide Acetate 1,200 mcg/ (Dextrose) 500 mls @ 20.83 mls/hr IVPB ASDIR ABELARDO ; 50 MCG/HR PRN Reason: Protocol Last Admin: 09/23/16 18:31 Dose: 20.83 mls/hr Losartan Potassium (Cozaar -) 25 mg PO DAILY ABELARDO Last Admin: 09/24/16 10:05 Dose: 25 mg Metolazone (Zaroxolyn -) 5 mg PO DAILY ABELARDO Last Admin: 09/24/16 10:07 Dose: Not Given Durezol 0.05% Opth Drops - Patient Own Med 1 each OD BID ABELARDO Last Admin: 09/24/16 10:05 Dose: 1 each Spironolactone (Aldactone -) 25 mg PO DAILY ABELARDO Last Admin: 09/24/16 10:04 Dose: 25 mg Warfarin Sodium (Coumadin -) 2 mg PO DAILY@1800 [facility] [place] Last Admin: 09/23/16 18:32 Dose: 2 mg Zolpidem Tartrate (Ambien -) 5 mg PO HS PRN Last Admin: 09/23/16 23:00 Dose: 5 mg - Objective Vital Signs: Vital Signs Temperature 98.2 F 09/24/16 04:00 Pulse Rate 61 09/24/16 08:00 Respiratory Rate 20 09/24/16 08:00 Blood Pressure 113/48 09/24/16 08:00 O2 Sat by Pulse Oximetry (%) 94 L 09/24/16 12:49 Constitutional: Yes: Calm Eyes: Yes: Conjunctiva Clear HENT: Yes: Atraumatic Cardiovascular: Yes: Murmur, S1, S2 Respiratory: Yes: Diminished, On Nasal O2 Gastrointestinal: Yes: Soft Genitourinary: Yes: Dawn Present Musculoskeletal: Yes: Muscle Weakness Edema: Yes Edema: LLE: Trace, RLE: Trace Neurological: Yes: Oriented Psychiatric: Yes: Oriented Labs: CBC, BMP 09/24/16 05:00 09/24/16 05:00 INR, PTT INR 2.65 (0.82-1.09) H 09/24/16 05:00 Problem List - Problems (1) Anemia Code(s): D64.9 - ANEMIA, UNSPECIFIED Qualifiers: Anemia type: iron deficiency (2) CHF (congestive heart failure) Code(s): I50.9 - HEART FAILURE, UNSPECIFIED Qualifiers: Congestive heart failure type: diastolic Congestive heart failure chronicity: acute on chronic Qualified Code(s): I50.33 - Acute on chronic diastolic (congestive) heart failure (3) Cholelithiasis Code(s): K80.20 - CALCULUS OF GALLBLADDER W/O CHOLECYSTITIS W/O OBSTRUCTION Qualifiers: Cholelithiasis location: gallbladder Cholecystitis presence: without cholecystitis Biliary obstruction: without biliary obstruction Qualified Code(s): K80.20 - Calculus of gallbladder without cholecystitis without obstruction (4) Hepatic cirrhosis Code(s): K74.60 - UNSPECIFIED CIRRHOSIS OF LIVER Qualifiers: Hepatic cirrhosis type: unspecified hepatic cirrhosis Ascites presence : without ascites Qualified Code(s): K74.60 - Unspecified cirrhosis of liver (5) S/P AVR (aortic valve replacement) Code(s): Z95.2 - PRESENCE OF PROSTHETIC HEART VALVE (6) S/P MVR (mitral valve replacement) Code(s): Z95.2 - PRESENCE OF PROSTHETIC HEART VALVE (8) Shortness of breath Code(s): R06.02 - SHORTNESS OF BREATH (9) RADHA (acute kidney injury) Code(s): N17.9 - ACUTE KIDNEY FAILURE, UNSPECIFIED Assessment/Plan Current Medications Generic Name Dose Route Start Last Admin Trade Name Freq PRN Reason Stop Dose Admin Acetaminophen 650 mg 09/05/16 20:01 09/22/16 03:33 Tylenol - PO 650 mg Q6H PRN Administration FEVER OR PAIN Albuterol Sulfate 1 amp 09/13/16 14:36 09/23/16 10:21 Ventolin 0.083% Nebulizer Soln - NEB 1 amp Q4H PRN Administration SHORT OF BREATH/WHEEZING Artificial Tears 1 drop 09/05/16 20:04 Artificial Tears OD DAILY PRN DRY EYES Bacitracin 1 applic 09/14/16 22:00 09/24/16 10:05 Bacitracin - TP 1 applic BID ABELARDO Administration Ferrous Sulfate 325 mg 09/05/16 22:00 09/24/16 10:05 Feosol - PO 325 mg BID ABELARDO Administration Furosemide 40 mg 09/06/16 14:00 09/24/16 08:04 Lasix Injection - IVPUSH 40 mg BID@0600,1400 ABELARDO Administration Dobutamine HCl/Dextrose 250 mls @ 10.095 mls/hr 09/21/16 11:15 09/23/16 16:40 Dobutamine 250 Mg/D5w - IV Not Given TITR ABELARDO Protocol 2.5 MCG/KG/MIN Pantoprazole Sodium 80 mg/ 100 mls @ 10 mls/hr 09/22/16 15:30 09/24/16 08:04 Sodium Chloride IVPB 10 mls/hr Q10H ABELARDO Administration 8 MG/HR Octreotide Acetate 1,200 mcg/ 500 mls @ 20.83 mls/hr 09/22/16 14:30 09/23/16 18 :31 Dextrose IVPB 20.83 mls/hr ASDIR ABELARDO Administration Protocol 50 MCG/HR Losartan Potassium 25 mg 09/06/16 10:00 09/24/16 10:05 Cozaar - PO 25 mg DAILY ABELARDO Administration Metolazone 5 mg 09/19/16 15:15 09/24/16 10:07 Zaroxolyn - PO Not Given DAILY [facility] [place] Durezol 0.05% Opth 1 each 09/07/16 22:00 09/24/16 10:05 Drops - Patient Own OD 1 each Med BID ABELARDO Administration Spironolactone 25 mg 09/09/16 10:15 09/24/16 10:04 Aldactone - PO 25 mg DAILY ABELARDO Administration Warfarin Sodium 2 mg 09/21/16 18:00 09/23/16 18:32 Coumadin - PO 2 mg DAILY@1800 ABELARDO Administration Zolpidem Tartrate 5 mg 09/17/16 00:26 09/23/16 23:00 Ambien - PO 5 mg HS PRN Administration Laboratory Tests 09/23/16 17:00 Urine Color Yellow Urine Appearance Slcloudy Urine pH 7.0 D Ur Specific [place] 1.009 Urine Protein 1+ H Urine Glucose (UA) Negative Urine Ketones Negative Urine Blood 3+ H Urine Nitrite Negative Urine Bilirubin Negative Urine Urobilinogen Negative Ur Leukocyte Esterase 1+ H Urine RBC 38 Impression 1. RADHA 2. aortic valve replacement 3. mitral valve replacement 4. tricuspid valve replacement 5. CHF 6. a-fib 7. anemia 8. hx GI bleed 9. HTN 10. liver cirrhosis 11. CKD Plan - follow urine cultures - cont diuretics - monitor bp - volume status is improving - case discussed in detail with family - may need to settle for higher creatinine to keep pt euvolemic - monitor INR - will follow Dr Bo
[2016-09-24] MEDS: DOBUTAMINE 250 MG/D5W - 250 ML IV SCH (13:37)
--- NOTE | 2016-09-24 13:41 | PN ---
Progress Note, Physician History of Present Illness: patient seen ad examined at bedside SOB improved per patient feels better still complains of hunger - Current Medication List Current Medications: Active Medications Acetaminophen (Tylenol -) 650 mg PO Q6H PRN PRN Reason: FEVER OR PAIN Last Admin: 09/22/16 03:33 Dose: 650 mg Albuterol Sulfate (Ventolin 0.083% Nebulizer Soln -) 1 amp NEB Q4H PRN PRN Reason: SHORT OF BREATH/WHEEZING Last Admin: 09/23/16 10:21 Dose: 1 amp Artificial Tears (Artificial Tears) 1 drop OD DAILY PRN PRN Reason: DRY EYES Bacitracin (Bacitracin -) 1 applic TP BID ABELARDO Last Admin: 09/24/16 10:05 Dose: 1 applic Ferrous Sulfate (Feosol -) 325 mg PO BID ABELARDO Last Admin: 09/24/16 10:05 Dose: 325 mg Furosemide (Lasix Injection -) 40 mg IVPUSH BID@0600,1400 ABELARDO Last Admin: 09/24/16 08:04 Dose: 40 mg Dobutamine HCl/Dextrose (Dobutamine 250 Mg/D5w -) 250 mls @ 10.095 mls/hr IV TITR ABELARDO; 2.5 MCG/KG/MIN PRN Reason: Protocol Last Admin: 09/24/16 13:37 Dose: 10.095 mls/hr Pantoprazole Sodium 80 mg/ (Sodium Chloride) 100 mls @ 10 mls/hr IVPB Q10H ABELARDO PRN Reason: 8 MG/HR Last Admin: 09/24/16 08:04 Dose: 10 mls/hr Octreotide Acetate 1,200 mcg/ (Dextrose) 500 mls @ 20.83 mls/hr IVPB ASDIR ABELARDO ; 50 MCG/HR PRN Reason: Protocol Last Admin: 09/23/16 18:31 Dose: 20.83 mls/hr Losartan Potassium (Cozaar -) 25 mg PO DAILY ABELARDO Last Admin: 09/24/16 10:05 Dose: 25 mg Metolazone (Zaroxolyn -) 5 mg PO DAILY ABELARDO Last Admin: 09/24/16 13:37 Dose: 5 mg Durezol 0.05% Opth Drops - Patient Own Med 1 each OD BID ABELARDO Last Admin: 09/24/16 10:05 Dose: 1 each Spironolactone (Aldactone -) 25 mg PO DAILY [facility] Last Admin: 09/24/16 10:04 Dose: 25 mg Warfarin Sodium (Coumadin -) 2 mg PO DAILY@1800 [facility] Last Admin: 09/23/16 18:32 Dose: 2 mg Zolpidem Tartrate (Ambien -) 5 mg PO HS PRN Last Admin: 09/23/16 23:00 Dose: 5 mg - Objective Vital Signs: Vital Signs Temperature 98.2 F 09/24/16 04:00 Pulse Rate 61 09/24/16 08:00 Respiratory Rate 20 09/24/16 08:00 Blood Pressure 113/48 09/24/16 08:00 O2 Sat by Pulse Oximetry (%) 94 L 09/24/16 12:49 Constitutional: Yes: thin no distress Eyes: Yes: Conjunctiva Clear HENT: Yes: Atraumatic, Normocephalic Neck: Yes: Supple, Trachea Midline Cardiovascular: Yes: Pulse Irregular, Murmur (3/6 murmur at apex and RUSB and LUSB), S1, S2 Respiratory: Yes: Other (crackles bilaterally L>R improved) Gastrointestinal: Yes: WNL, Soft Genitourinary: Yes: Dawn Present urine clearing Musculoskeletal: Yes: Muscle Pain Edema: Yes Edema: LLE: 1+, RLE: + significantly improved Integumentary: Yes: Venous Stasis Changes (b/l LE) Neurological: Yes: Alert, Oriented, Cranial Nerves II-XII Intact Labs: CBC, BMP 09/24/16 05:00 09/24/16 05:00 INR, PTT INR 2.65 (0.82-1.09) H 09/24/16 05:00 Assessment/Plan 86F with multiple medical problems admitted for CHF exacerbation transferred to ICU for dobutamine gtt now with possible GI bleed and acute anemia problems list: 1. RADHA 2. aortic valve replacement 3. mitral valve replacement 4. tricuspid valve replacement 5. CHF 6. a-fib 7. anemia 8. hx GI bleed 9. HTN 10. liver cirrhosis 11. CKD Neuro: Neurologically intact pain controlled no issues CV: Patient on dobutamine gtt @ 2.5 per cardiology will wean off Continue lasix for CHF continue metolazone losartan aldactone continuecoumadin 2mg tonight Afib rate controlled Resp: continue to be SOB especially with minimal exertion but improving BiPAP PRN patient currently refusing GI: possible GI bleed FOBT positive Hepatoma and cirrhosis per GI-poor prognosis Palliative care consulted octreotide gtt and protonix gtt per GI Dr. Rojo saw patient high risk for endoscopy Hemetology: Black tarry stools improving becoming more brown per patient will not reverse INR since has valve replacements s/p 1 unit PRBCs with Hb apporptiately responding to 8 currently stable keep Hb>8 continue to trend renal: acute on chronic renal failure Cr unchanged renal consult appreciated cr 1.2 new baseline FEN: no fluids no electrolyte abnormalities NPO for GI bleed PPx: On coumadin elevated INR Protonic gtt otreotide gtt PT consult Patient seen case discussed with Dr. Herrera Patient now DNR/DNI will think about [facility]
[2016-09-24] MEDS: OCTREOTIDE ACETATE 1,200 MCG in DEXTROSE 5%-WATER - 488 ML IVPB SCH (14:22)
[2016-09-24] MEDS: WARFARIN NA 2 MG TABLET (UD) PO SCH (17:09)
[2016-09-24] MEDS ORDERED: morphine CARPU-JECT 2 MG/1 ML DISP.SYRIN IVPUSH PRN (18:09)
[2016-09-24] MEDS: ZOLPIDEM TARTRATE 5 MG TABLET PO PRN (22:55)
[2016-09-25] MEDS ORDERED: niCARdipine HCL 25 MG/10 ML AMPUL IVPB ONE (03:11)
[2016-09-25 06:17] LABS: MCH 28.4 pg (25.7-33.7); MEAN CELL VOLUME 88.9 fl (80-96); MEAN PLT VOLUME 9.8 fl (7.5-11.1); PLATELET COUNT 210 K/MM3 (134-434); RDW 17.4 % (11.6-15.6); WHITE BLOOD COUNT 5.8 K/mm3 (4.0-10.0)
[2016-09-25 06:40] LABS: INR 2.89 (0.82-1.09); PROTHROMBIN TIME (PATIENT) 32.5 SEC (9.98-11.88)
[2016-09-25 06:42] LABS: ACTIVATED PTT 46.3 SECONDS (26.9-34.4)
[2016-09-25 07:07] LABS: CREATININE 1.1 mg/dL (0.55-1.02)
[2016-09-25 07:08] LABS: ALBUMIN 3.1 g/dl (3.4-5.0); BILIRUBIN,TOTAL 1.3 mg/dL (0.2-1.0); CALCIUM 8.3 mg/dL (8.5-10.1); MAGNESIUM 2.2 mg/dL (1.8-2.4); PHOSPHOROUS 3.4 mg/dL (2.5-4.9); TOT PROT 5.9 g/dl (6.4-8.2)
[2016-09-25] MEDS: FUROSEMIDE 40 MG/4 ML INJECTABLE VIAL IVPUSH SCH ×2 (07:32→14:14)
--- NOTE | 2016-09-25 08:43 | PN ---
Progress Note, Physician History of Present Illness: patient seen ad examined at bedside SOB improved per patient did not sleep well last night - Current Medication List Current Medications: Active Medications Acetaminophen (Tylenol -) 650 mg PO Q6H PRN PRN Reason: FEVER OR PAIN Last Admin: 09/22/16 03:33 Dose: 650 mg Albuterol Sulfate (Ventolin 0.083% Nebulizer Soln -) 1 amp NEB Q4H PRN PRN Reason: SHORT OF BREATH/WHEEZING Last Admin: 09/23/16 10:21 Dose: 1 amp Artificial Tears (Artificial Tears) 1 drop OD DAILY PRN PRN Reason: DRY EYES Bacitracin (Bacitracin -) 1 applic TP BID [facility] Last Admin: 09/24/16 21:17 Dose: 1 applic Ferrous Sulfate (Feosol -) 325 mg PO BID [facility] Last Admin: 09/24/16 21:16 Dose: 325 mg Furosemide (Lasix Injection -) 40 mg IVPUSH BID@0600,1400 [facility] Last Admin: 09/25/16 07:32 Dose: 40 mg Pantoprazole Sodium 80 mg/ (Sodium Chloride) 100 mls @ 10 mls/hr IVPB Q10H ABELARDO PRN Reason: 8 MG/HR Last Admin: 09/24/16 16:56 Dose: 10 mls/hr Octreotide Acetate 1,200 mcg/ (Dextrose) 500 mls @ 20.83 mls/hr IVPB ASDIR ABELARDO ; 50 MCG/HR PRN Reason: Protocol Last Admin: 09/24/16 14:22 Dose: 20.83 mls/hr Losartan Potassium (Cozaar -) 25 mg PO DAILY [facility] Last Admin: 09/24/16 10:05 Dose: 25 mg Metolazone (Zaroxolyn -) 5 mg PO DAILY [facility] Last Admin: 09/24/16 13:37 Dose: 5 mg Morphine Sulfate (Morphine Injection -) 2 mg IVPUSH Q4H PRN PRN Reason: SHORTNESS OF BREATH Durezol 0.05% Opth Drops - Patient Own Med 1 each OD BID [facility] Last Admin: 09/24/16 21:17 Dose: 1 each Spironolactone (Aldactone -) 25 mg PO DAILY [facility] Last Admin: 09/24/16 10:04 Dose: 25 mg Warfarin Sodium (Coumadin -) 2 mg PO DAILY@1800 [facility] Last Admin: 09/24/16 17:09 Dose: 2 mg Zolpidem Tartrate (Ambien -) 5 mg PO HS PRN Last Admin: 09/24/16 22:55 Dose: 5 mg - Objective Vital Signs: Vital Signs Temperature 98.0 F 09/25/16 08:00 Pulse Rate 68 09/25/16 08:00 Respiratory Rate 18 09/25/16 08:00 Blood Pressure 114/42 09/25/16 08:00 O2 Sat by Pulse Oximetry (%) 98 09/24/16 21:00 Constitutional: Yes: thin no distress Eyes: Yes: Conjunctiva Clear HENT: Yes: Atraumatic, Normocephalic Neck: Yes: Supple, Trachea Midline Cardiovascular: Yes: Pulse Irregular, Murmur (3/6 murmur at apex and RUSB and LUSB), S1, S2 Respiratory: Yes: Other (cracklesand wheezing bilaterally L>R) Gastrointestinal: Yes: WNL, Soft Genitourinary: Yes: Dawn Present urine clearing Musculoskeletal: Yes: Muscle Pain Edema: Yes Edema: LLE: 1+, RLE: + significantly improved Integumentary: Yes: Venous Stasis Changes (b/l LE) Neurological: Yes: Alert, Oriented, Cranial Nerves II-XII Intact Labs: CBC, BMP 09/25/16 05:20 09/25/16 05:20 INR, PTT INR 2.89 (0.82-1.09) H 09/25/16 05:20 Assessment/Plan 86F with multiple medical problems admitted for CHF exacerbation transferred to ICU for dobutamine gtt now with possible GI bleed and acute anemia problems list: 1. RADHA 2. aortic valve replacement 3. mitral valve replacement 4. tricuspid valve replacement 5. CHF 6. a-fib 7. anemia 8. hx GI bleed 9. HTN 10. liver cirrhosis 11. CKD Neuro: Neurologically intact pain controlled no issues CV: dobutamine gtt stopped now off for 24hrs Continue lasix for CHF continue metolazone losartan aldactone continue coumadin 2mg tonight Afib rate controlled Resp: continue to be SOB especially with minimal exertion but improving BiPAP PRN patient currently refusing Rash: likely contact dermatitis continue benadryl GI: possible GI bleed FOBT positive Hepatoma and cirrhosis per GI-poor prognosis Palliative care consulted octreotide gtt and protonix gtt per GI Hb stable Dr. Rojo saw patient high risk for endoscopy Hemetology: Black tarry stools resolved will not reverse INR since has valve replacements s/p 1 unit PRBCs with Hb appropriately responding to 8 currently stable keep Hb>8 continue to trend renal: acute on chronic renal failure Cr unchanged renal consult appreciated cr 1.1 Insomnia: Increase ambien to 7.5mg hs FEN: no fluids no electrolyte abnormalities CLD advance to soft PPx: On coumadin elevated INR Protonic gtt otreotide gtt PT consult Patient seen case discussed with Dr. Herrera Patient now DNR/DNI will go to [facility] transfer to telemetry
[2016-09-25] MEDS ORDERED: PT OWN MED DRAWER 7, Y5N ONE (09:40)
[2016-09-25] MEDS: SPIRONOLACTONE 25 MG TABLET (FP) PO SCH (09:41)
[2016-09-25] MEDS: FERROUS SO4 325 MG TABLET (FP) PO SCH ×2 (09:41→23:26)
[2016-09-25] MEDS: LOSARTAN POTASSIUM 50 MG TABLET (FP) PO SCH (09:41)
[2016-09-25] MEDS: METOLAZONE 5 MG TABLET PO SCH (09:42)
[2016-09-25] MEDS: BACITRACIN 30 GM TUBE TOPICAL OINTMENT TP SCH ×2 (09:43→23:26)
[2016-09-25] MEDS: OPTH OD SCH ×2 (09:44→23:26)
[2016-09-25] MEDS: DUREZOL 0.05% OD SCH ×2 (09:44→23:26)
--- NOTE | 2016-09-25 11:25 | PN ---
Teaching Attending Note Name of Resident: James Ding ATTENDING PHYSICIAN STATEMENT I saw and evaluated the patient. I reviewed the resident's note and discussed the case with the resident. I agree with the resident's findings and plan as documented. SUBJECTIVE: Pt seen and examined in the ICU. Unable to sleep last night. Breathing about the same, still dyspneic with minimal exertion. Palliative care input appreciated, family considering hospice placement. OBJECTIVE: Last Vital Signs Temp Pulse Resp BP Pulse Ox 98.0 F 61 18 114/42 97 09/25/16 08:00 09/25/16 10:25 09/25/16 08:00 09/25/16 08:00 09/25/16 10:25 Intake & Output 09/22/16 09/23/16 09/24/16 09/25/16 23:59 23:59 23:59 23:59 Intake Total 1832.8 1963.6 2046.2 240 Output Total 2750 3000 3300 500 Balance -917.2 -1036.4 -1253.8 -260 Weight 146 lb 3.2 oz 147 lb 3.2 oz 138 lb Gen: tachypneic at rest Heart: RRR Lung: bibasilar rales Abd: soft, nontender Ext: decreasing edema CBC, BMP 09/25/16 05:20 09/25/16 05:20 CXR: severe cardiomegaly Active Medications Acetaminophen (Tylenol -) 650 mg PO Q6H PRN PRN Reason: FEVER OR PAIN Last Admin: 09/22/16 03:33 Dose: 650 mg Albuterol Sulfate (Ventolin 0.083% Nebulizer Soln -) 1 amp NEB Q4H PRN PRN Reason: SHORT OF BREATH/WHEEZING Last Admin: 09/23/16 10:21 Dose: 1 amp Artificial Tears (Artificial Tears) 1 drop OD DAILY PRN PRN Reason: DRY EYES Bacitracin (Bacitracin -) 1 applic TP BID [facility] Last Admin: 09/25/16 09:43 Dose: 1 applic Ferrous Sulfate (Feosol -) 325 mg PO BID [facility] Last Admin: 09/25/16 09:41 Dose: 325 mg Furosemide (Lasix Injection -) 40 mg IVPUSH BID@0600,1400 [facility] Last Admin: 09/25/16 07:32 Dose: 40 mg Pantoprazole Sodium 80 mg/ (Sodium Chloride) 100 mls @ 10 mls/hr IVPB Q10H ABELARDO PRN Reason: 8 MG/HR Last Admin: 09/24/16 16:56 Dose: 10 mls/hr Octreotide Acetate 1,200 mcg/ (Dextrose) 500 mls @ 20.83 mls/hr IVPB ASDIR ABELARDO ; 50 MCG/HR PRN Reason: Protocol Last Admin: 09/24/16 14:22 Dose: 20.83 mls/hr Losartan Potassium (Cozaar -) 25 mg PO DAILY [facility] Last Admin: 09/25/16 09:41 Dose: 25 mg Metolazone (Zaroxolyn -) 5 mg PO DAILY [facility] Last Admin: 09/25/16 09:42 Dose: 5 mg Morphine Sulfate (Morphine Injection -) 2 mg IVPUSH Q4H PRN PRN Reason: SHORTNESS OF BREATH Durezol 0.05% Opth Drops - Patient Own Med 1 each OD BID [facility] Last Admin: 09/25/16 09:44 Dose: 1 each Spironolactone (Aldactone -) 25 mg PO DAILY [facility] Last Admin: 09/25/16 09:41 Dose: 25 mg Warfarin Sodium (Coumadin -) 2 mg PO DAILY@1800 [facility] Last Admin: 09/24/16 17:09 Dose: 2 mg Zolpidem Tartrate (Ambien -) 7.5 mg PO HS PRN PRN Reason: insomnia ASSESSMENT AND PLAN: Acute on Chronic LV Diastolic Heart Failure/Right Heart Failure Pulmonary HTN s/p AVR/MVR Atrial Fibrillation Liver Cirrhosis Likely HCC GI Bleed Anemia h/o AVM - continue lasix, aldactone, zaroxolyn - monitor urine output, creatinine - daily weights, I/Os - rate controlled - monitor H/H - continue protonix, octreotide gtts - continue anticoagulation for now - O2 to keep SpO2 >90% - palliative care evaluation - contniue discussions regarding goals of care - agree with hospice placement, pt now DNR/DNI
--- NOTE | 2016-09-25 11:42 | PN ---
Progress Note, Physician History of Present Illness: Dyspnea, LE edema and ascites improving with inotropic diuresis and compression therapy, melena noted, Hgb stable post-transfusion. - Current Medication List Current Medications: Active Medications Acetaminophen (Tylenol -) 650 mg PO Q6H PRN PRN Reason: FEVER OR PAIN Last Admin: 09/22/16 03:33 Dose: 650 mg Albuterol Sulfate (Ventolin 0.083% Nebulizer Soln -) 1 amp NEB Q4H PRN PRN Reason: SHORT OF BREATH/WHEEZING Last Admin: 09/23/16 10:21 Dose: 1 amp Artificial Tears (Artificial Tears) 1 drop OD DAILY PRN PRN Reason: DRY EYES Bacitracin (Bacitracin -) 1 applic TP BID [facility] Last Admin: 09/25/16 09:43 Dose: 1 applic Ferrous Sulfate (Feosol -) 325 mg PO BID [facility] Last Admin: 09/25/16 09:41 Dose: 325 mg Furosemide (Lasix Injection -) 40 mg IVPUSH BID@0600,1400 [facility] Last Admin: 09/25/16 07:32 Dose: 40 mg Pantoprazole Sodium 80 mg/ (Sodium Chloride) 100 mls @ 10 mls/hr IVPB Q10H ABELARDO PRN Reason: 8 MG/HR Last Admin: 09/24/16 16:56 Dose: 10 mls/hr Octreotide Acetate 1,200 mcg/ (Dextrose) 500 mls @ 20.83 mls/hr IVPB ASDIR ABELARDO ; 50 MCG/HR PRN Reason: Protocol Last Admin: 09/24/16 14:22 Dose: 20.83 mls/hr Losartan Potassium (Cozaar -) 25 mg PO DAILY [facility] Last Admin: 09/25/16 09:41 Dose: 25 mg Metolazone (Zaroxolyn -) 5 mg PO DAILY [facility] Last Admin: 09/25/16 09:42 Dose: 5 mg Morphine Sulfate (Morphine Injection -) 2 mg IVPUSH Q4H PRN PRN Reason: SHORTNESS OF BREATH Durezol 0.05% Opth Drops - Patient Own Med 1 each OD BID [facility] Last Admin: 09/25/16 09:44 Dose: 1 each Spironolactone (Aldactone -) 25 mg PO DAILY [facility] Last Admin: 09/25/16 09:41 Dose: 25 mg Warfarin Sodium (Coumadin -) 2 mg PO DAILY@1800 [facility] Last Admin: 09/24/16 17:09 Dose: 2 mg Zolpidem Tartrate (Ambien -) 7.5 mg PO HS PRN PRN Reason: insomnia - Objective Vital Signs: Vital Signs Temperature 98.1 F 09/25/16 10:00 Pulse Rate 61 09/25/16 10:25 Respiratory Rate 18 09/25/16 10:00 Blood Pressure 115/55 09/25/16 10:00 O2 Sat by Pulse Oximetry (%) 97 09/25/16 10:25 Constitutional: Yes: No Distress, Calm, Thin Neck: Yes: Supple Cardiovascular: Yes: Pulse Irregular, Murmur (2/6 SM), Other ([place] mechanical valve sounds) Respiratory: Yes: Regular, Diminished, On Nasal O2, SOB Gastrointestinal: Yes: Normal Bowel Sounds, Soft Edema: No Integumentary: Yes: Venous Stasis Changes Labs: CBC, BMP 09/25/16 05:20 09/25/16 05:20 INR, PTT INR 2.89 (0.82-1.09) H 09/25/16 05:20 - ....Imaging EKG: Report Reviewed (Tele: Afib) Problem List - Problems (1) CHF (congestive heart failure) Code(s): I50.9 - HEART FAILURE, UNSPECIFIED Qualifiers: Congestive heart failure type: diastolic Congestive heart failure chronicity: acute on chronic Qualified Code(s): I50.33 - Acute on chronic diastolic (congestive) heart failure (2) Rheumatic heart disease Code(s): I09.9 - RHEUMATIC HEART DISEASE, UNSPECIFIED (3) S/P AVR (aortic valve replacement) Code(s): Z95.2 - PRESENCE OF PROSTHETIC HEART VALVE (4) S/P MVR (mitral valve replacement) Code(s): Z95.2 - PRESENCE OF PROSTHETIC HEART VALVE (6) Shortness of breath Code(s): R06.02 - SHORTNESS OF BREATH (7) Permanent atrial fibrillation Code(s): I48.2 - CHRONIC ATRIAL FIBRILLATION (8) Pulmonary hypertension Code(s): I27.2 - OTHER SECONDARY PULMONARY HYPERTENSION (9) Venous stasis dermatitis of both lower extremities Code(s): I83.11 - VARICOSE VEINS OF RIGHT LOWER EXTREMITY WITH INFLAMMATION I83.12 - VARICOSE VEINS OF LEFT LOWER EXTREMITY WITH INFLAMMATION (10) Cholelithiasis Code(s): K80.20 - CALCULUS OF GALLBLADDER W/O CHOLECYSTITIS W/O OBSTRUCTION Qualifiers: Cholelithiasis location: gallbladder Cholecystitis presence: without cholecystitis Biliary obstruction: without biliary obstruction Qualified Code(s): K80.20 - Calculus of gallbladder without cholecystitis without obstruction (11) Hepatic cirrhosis Code(s): K74.60 - UNSPECIFIED CIRRHOSIS OF LIVER Qualifiers: Hepatic cirrhosis type: unspecified hepatic cirrhosis Ascites presence : without ascites Qualified Code(s): K74.60 - Unspecified cirrhosis of liver (12) Hepatocellular carcinoma Code(s): C22.0 - LIVER CELL CARCINOMA Assessment/Plan 1. 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 Severe pulmonary HTN related to above 3. Post MVR and AVR (mechanical prosthesis) with history of rheumatic heart disease 4. Post TVR (Bio-prosthesis) 5. Permanent atrial fibrillation with slow ventricular response, asymptomatic 6. History of hepatic cirrhosis with likely HCC 7. Acute on CKD 8. Anemia with dropping H/H post transfusion, 2/2 GI bleed, h/o AVM PLAN: 1. Continue Lasix 40 IV bid, Zaroxolyn 5 qd and Aldactone 25 qd with caution and close monitoring of renal function 2. Continue Coumadin as per INR maintain 2.5-3.0 with close monitoring of H/H 3. Continue Cozaar 25 qd with caution and close monitoring of renal function 4. Weaned off Dobutamine drip 5. Monitor H/H and maintain Hg equal or > 8.0, protonix, octreotide gtts, endoscopy is risky 6. O2 to maintain saO2, support stockings, OOB to chair, DNR/DNI
[2016-09-25] MEDS: OCTREOTIDE ACETATE 1,200 MCG in DEXTROSE 5%-WATER - 488 ML IVPB SCH ×2 (12:40→14:30)
[2016-09-25] MEDS: PANTOPRAZOLE SODIUM 80 MG in SODIUM CHLORIDE 100 ML IVPB SCH ×3 (12:40→23:26)
--- NOTE | 2016-09-25 14:30 | PN ---
Progress Note, Physician History of Present Illness: Pt seen and examined at bedside. She is feeling better today. - Current Medication List Current Medications: Active Medications Acetaminophen (Tylenol -) 650 mg PO Q6H PRN PRN Reason: FEVER OR PAIN Last Admin: 09/22/16 03:33 Dose: 650 mg Albuterol Sulfate (Ventolin 0.083% Nebulizer Soln -) 1 amp NEB Q4H PRN PRN Reason: SHORT OF BREATH/WHEEZING Last Admin: 09/23/16 10:21 Dose: 1 amp Artificial Tears (Artificial Tears) 1 drop OD DAILY PRN PRN Reason: DRY EYES Bacitracin (Bacitracin -) 1 applic TP BID [facility] Last Admin: 09/25/16 09:43 Dose: 1 applic Ferrous Sulfate (Feosol -) 325 mg PO BID [facility] Last Admin: 09/25/16 09:41 Dose: 325 mg Furosemide (Lasix Injection -) 40 mg IVPUSH BID@0600,1400 [facility] Last Admin: 09/25/16 14:14 Dose: 40 mg Pantoprazole Sodium 80 mg/ (Sodium Chloride) 100 mls @ 10 mls/hr IVPB Q10H [facility]ELARDO PRN Reason: 8 MG/HR Last Admin: 09/25/16 13:30 Dose: Not Given Octreotide Acetate 1,200 mcg/ (Dextrose) 500 mls @ 20.83 mls/hr IVPB ASDIR ABELARDO ; 50 MCG/HR PRN Reason: Protocol Last Admin: 09/25/16 12:40 Dose: 20.83 mls/hr Losartan Potassium (Cozaar -) 25 mg PO DAILY [facility] Last Admin: 09/25/16 09:41 Dose: 25 mg Metolazone (Zaroxolyn -) 5 mg PO DAILY [facility] Last Admin: 09/25/16 09:42 Dose: 5 mg Morphine Sulfate (Morphine Injection -) 2 mg IVPUSH Q4H PRN PRN Reason: SHORTNESS OF BREATH Durezol 0.05% Opth Drops - Patient Own Med 1 each OD BID [facility] Last Admin: 09/25/16 09:44 Dose: 1 each Spironolactone (Aldactone -) 25 mg PO DAILY [facility] Last Admin: 09/25/16 09:41 Dose: 25 mg Warfarin Sodium (Coumadin -) 2 mg PO DAILY@1800 [facility] Last Admin: 09/24/16 17:09 Dose: 2 mg Zolpidem Tartrate (Ambien -) 7.5 mg PO HS PRN PRN Reason: insomnia - Objective Vital Signs: Vital Signs Temperature 97.9 F 09/25/16 14:00 Pulse Rate 50 L 09/25/16 14:00 Respiratory Rate 18 09/25/16 14:00 Blood Pressure 127/95 09/25/16 14:00 O2 Sat by Pulse Oximetry (%) 97 09/25/16 10:25 Constitutional: Yes: Calm Eyes: Yes: Conjunctiva Clear HENT: Yes: Atraumatic Neck: Yes: Supple Cardiovascular: Yes: S1, S2 Gastrointestinal: Yes: Soft Genitourinary: Yes: Dawn Present Musculoskeletal: Yes: Muscle Weakness Edema: Yes Edema: LLE: Trace, RLE: Trace Neurological: Yes: Oriented Psychiatric: Yes: Oriented Labs: CBC, BMP 09/25/16 05:20 09/25/16 05:20 INR, PTT INR 2.89 (0.82-1.09) H 09/25/16 05:20 Problem List - Problems (1) Anemia Code(s): D64.9 - ANEMIA, UNSPECIFIED Qualifiers: Anemia type: iron deficiency (2) CHF (congestive heart failure) Code(s): I50.9 - HEART FAILURE, UNSPECIFIED Qualifiers: Congestive heart failure type: diastolic Congestive heart failure chronicity: acute on chronic Qualified Code(s): I50.33 - Acute on chronic diastolic (congestive) heart failure (3) Cholelithiasis Code(s): K80.20 - CALCULUS OF GALLBLADDER W/O CHOLECYSTITIS W/O OBSTRUCTION Qualifiers: Cholelithiasis location: gallbladder Cholecystitis presence: without cholecystitis Biliary obstruction: without biliary obstruction Qualified Code(s): K80.20 - Calculus of gallbladder without cholecystitis without obstruction (4) Hepatic cirrhosis Code(s): K74.60 - UNSPECIFIED CIRRHOSIS OF LIVER Qualifiers: Hepatic cirrhosis type: unspecified hepatic cirrhosis Ascites presence : without ascites Qualified Code(s): K74.60 - Unspecified cirrhosis of liver (5) S/P AVR (aortic valve replacement) Code(s): Z95.2 - PRESENCE OF PROSTHETIC HEART VALVE (6) S/P MVR (mitral valve replacement) Code(s): Z95.2 - PRESENCE OF PROSTHETIC HEART VALVE (8) Shortness of breath Code(s): R06.02 - SHORTNESS OF BREATH (9) RADHA (acute kidney injury) Code(s): N17.9 - ACUTE KIDNEY FAILURE, UNSPECIFIED Assessment/Plan Current Medications Generic Name Dose Route Start Last Admin Trade Name Freq PRN Reason Stop Dose Admin Acetaminophen 650 mg 09/05/16 20:01 09/22/16 03:33 Tylenol - PO 650 mg Q6H PRN Administration FEVER OR PAIN Albuterol Sulfate 1 amp 09/13/16 14:36 09/23/16 10:21 Ventolin 0.083% Nebulizer Soln - NEB 1 amp Q4H PRN Administration SHORT OF BREATH/WHEEZING Artificial Tears 1 drop 09/05/16 20:04 Artificial Tears OD DAILY PRN DRY EYES Bacitracin 1 applic 09/14/16 22:00 09/25/16 09:43 Bacitracin - TP 1 applic BID [facility]EL[facility]O Administration Ferrous Sulfate 325 mg 09/05/16 22:00 09/25/16 09:41 Feosol - PO 325 mg BID ABELARDO Administration Furosemide 40 mg 09/06/16 14:00 09/25/16 14:14 Lasix Injection - IVPUSH 40 mg BID@0600,1400 AB[facility]O Administration Pantoprazole Sodium 80 mg/ 100 mls @ 10 mls/hr 09/22/16 15:30 09/25/16 13:30 Sodium Chloride IVPB Not Given Q10H ABELARDO 8 MG/HR Octreotide Acetate 1,200 mcg/ 500 mls @ 20.83 mls/hr 09/22/16 14:30 09/25/16 12 :40 Dextrose IVPB 20.83 mls/hr ASDIR ABELARDO Administration Protocol 50 MCG/HR Losartan Potassium 25 mg 09/06/16 10:00 09/25/16 09:41 Cozaar - PO 25 mg DAILY [facility]O Administration Metolazone 5 mg 09/19/16 15:15 09/25/16 09:42 Zaroxolyn - PO 5 mg DAILY ABELARDO Administration Morphine Sulfate 2 mg 09/24/16 18:09 Morphine Injection - IVPUSH Q4H PRN SHORTNESS OF BREATH Durezol 0.05% Opth 1 each 09/07/16 22:00 09/25/16 09:44 Drops - Patient Own OD 1 each Med BID [facility]O Administration Spironolactone 25 mg 09/09/16 10:15 09/25/16 09:41 Aldactone - PO 25 mg DAILY ABEL[facility]O Administration Warfarin Sodium 2 mg 09/21/16 18:00 09/24/16 17:09 Coumadin - PO 2 mg DAILY@1800 [facility]EL[facility]O Administration Zolpidem Tartrate 7.5 mg 09/25/16 11:00 Ambien - PO HS PRN insomnia Impression 1. RADHA 2. aortic valve replacement 3. mitral valve replacement 4. tricuspid valve replacement 5. CHF 6. a-fib 7. anemia 8. hx GI bleed 9. HTN 10. liver cirrhosis 11. CKD Plan - renal function is stabilizing - follow urine cultures, ID eval - urine is clearing up - cont diuretics - case discussed with family - will follow - monitor bp - volume status is improving - may need to settle for higher creatinine to keep pt euvolemic - monitor INR - will follow Dr Bo
--- NOTE | 2016-09-25 16:39 | PN ---
Progress Note, Physician History of Present Illness: Urine from norowod catheter growing GNR U/A 2 WBC No c/o suprapubic or flank pain No fever/ chills WBC normal - Current Medication List Current Medications: Active Medications Acetaminophen (Tylenol -) 650 mg PO Q6H PRN PRN Reason: FEVER OR PAIN Last Admin: 09/22/16 03:33 Dose: 650 mg Albuterol Sulfate (Ventolin 0.083% Nebulizer Soln -) 1 amp NEB Q4H PRN PRN Reason: SHORT OF BREATH/WHEEZING Last Admin: 09/23/16 10:21 Dose: 1 amp Artificial Tears (Artificial Tears) 1 drop OD DAILY PRN PRN Reason: DRY EYES Bacitracin (Bacitracin -) 1 applic TP BID [facility] Last Admin: 09/25/16 09:43 Dose: 1 applic Ferrous Sulfate (Feosol -) 325 mg PO BID [facility] Last Admin: 09/25/16 09:41 Dose: 325 mg Furosemide (Lasix Injection -) 40 mg IVPUSH BID@0600,1400 [facility] Last Admin: 09/25/16 14:14 Dose: 40 mg Pantoprazole Sodium 80 mg/ (Sodium Chloride) 100 mls @ 10 mls/hr IVPB Q10H ABELARDO PRN Reason: 8 MG/HR Last Admin: 09/25/16 13:30 Dose: Not Given Octreotide Acetate 1,200 mcg/ (Dextrose) 500 mls @ 20.83 mls/hr IVPB ASDIR ABELARDO ; 50 MCG/HR PRN Reason: Protocol Last Admin: 09/25/16 14:30 Dose: Not Given Losartan Potassium (Cozaar -) 25 mg PO DAILY [facility] Last Admin: 09/25/16 09:41 Dose: 25 mg Metolazone (Zaroxolyn -) 5 mg PO DAILY [facility] Last Admin: 09/25/16 09:42 Dose: 5 mg Morphine Sulfate (Morphine Injection -) 2 mg IVPUSH Q4H PRN PRN Reason: SHORTNESS OF BREATH Durezol 0.05% Opth Drops - Patient Own Med 1 each OD BID [facility] Last Admin: 09/25/16 09:44 Dose: 1 each Spironolactone (Aldactone -) 25 mg PO DAILY [facility] Last Admin: 09/25/16 09:41 Dose: 25 mg Warfarin Sodium (Coumadin -) 2 mg PO DAILY@1800 [facility] Last Admin: 09/24/16 17:09 Dose: 2 mg Zolpidem Tartrate (Ambien -) 7.5 mg PO HS PRN PRN Reason: insomnia - Objective Vital Signs: Vital Signs Temperature 98.0 F 09/25/16 16:00 Pulse Rate 45 L 09/25/16 16:00 Respiratory Rate 18 09/25/16 16:00 Blood Pressure 111/46 09/25/16 16:00 O2 Sat by Pulse Oximetry (%) 97 09/25/16 10:25 Constitutional: Yes: No Distress Eyes: Yes: Conjunctiva Clear Cardiovascular: Yes: Regular Rate and Rhythm, Murmur, S1, S2 Respiratory: Yes: Diminished Gastrointestinal: Yes: Normal Bowel Sounds, Soft. No: Tenderness Labs: CBC, BMP 09/25/16 05:20 09/25/16 05:20 INR, PTT INR 2.89 (0.82-1.09) H 09/25/16 05:20 Assessment/Plan Probable urinary tract colonization No evidence of systemic infection Observe off antibiotics
[2016-09-25] MEDS: WARFARIN NA 2 MG TABLET (UD) PO SCH (19:15)
--- NOTE | 2016-09-25 19:57 | PN ---
Progress Note, Physician Chief Complaint: PATIENT SEEN IN ICU THIS MORNING EVENTS AND LABS REVIEWED PATIENT IN [facility] BREATHING BETTER - Current Medication List Current Medications: Active Medications Acetaminophen (Tylenol -) 650 mg PO Q6H PRN PRN Reason: FEVER OR PAIN Last Admin: 09/22/16 03:33 Dose: 650 mg Albuterol Sulfate (Ventolin 0.083% Nebulizer Soln -) 1 amp NEB Q4H PRN PRN Reason: SHORT OF BREATH/WHEEZING Last Admin: 09/23/16 10:21 Dose: 1 amp Artificial Tears (Artificial Tears) 1 drop OD DAILY PRN PRN Reason: DRY EYES Bacitracin (Bacitracin -) 1 applic TP BID [facility] Last Admin: 09/25/16 09:43 Dose: 1 applic Ferrous Sulfate (Feosol -) 325 mg PO BID [facility] Last Admin: 09/25/16 09:41 Dose: 325 mg Furosemide (Lasix Injection -) 40 mg IVPUSH BID@0600,1400 [facility] Last Admin: 09/25/16 14:14 Dose: 40 mg Pantoprazole Sodium 80 mg/ (Sodium Chloride) 100 mls @ 10 mls/hr IVPB Q10H ABELARDO PRN Reason: 8 MG/HR Last Admin: 09/25/16 13:30 Dose: Not Given Octreotide Acetate 1,200 mcg/ (Dextrose) 500 mls @ 20.83 mls/hr IVPB ASDIR ABELARDO ; 50 MCG/HR PRN Reason: Protocol Last Admin: 09/25/16 14:30 Dose: Not Given Losartan Potassium (Cozaar -) 25 mg PO DAILY [facility] Last Admin: 09/25/16 09:41 Dose: 25 mg Metolazone (Zaroxolyn -) 5 mg PO DAILY [facility] Last Admin: 09/25/16 09:42 Dose: 5 mg Morphine Sulfate (Morphine Injection -) 2 mg IVPUSH Q4H PRN PRN Reason: SHORTNESS OF BREATH Durezol 0.05% Opth Drops - Patient Own Med 1 each OD BID [facility] Last Admin: 09/25/16 09:44 Dose: 1 each Spironolactone (Aldactone -) 25 mg PO DAILY [facility] Last Admin: 09/25/16 09:41 Dose: 25 mg Warfarin Sodium (Coumadin -) 2 mg PO DAILY@1800 [facility] Last Admin: 09/25/16 19:15 Dose: 2 mg Zolpidem Tartrate (Ambien -) 7.5 mg PO HS PRN PRN Reason: insomnia - Objective Vital Signs: Vital Signs Temperature 97.8 F 09/25/16 18:00 Pulse Rate 53 L 09/25/16 18:00 Respiratory Rate 18 09/25/16 18:00 Blood Pressure 128/42 09/25/16 18:00 O2 Sat by Pulse Oximetry (%) 97 09/25/16 10:25 Constitutional: Yes: Mild Distress Eyes: Yes: WNL HENT: Yes: WNL Neck: Yes: WNL Cardiovascular: Yes: Pulse Irregular, Murmur Respiratory: Yes: On Nasal O2, Poor Air Entry Gastrointestinal: Yes: WNL Genitourinary: Yes: WNL Musculoskeletal: Yes: Muscle Weakness Extremities: Yes: Erythema Peripheral Pulses WNL: Yes Integumentary: Yes: Rash, Venous Stasis Changes Wound/Incision: Yes: Dressing Dry and Intact Neurological: Yes: Pre-Existing Deficit ...Motor Strength: LLE, RLE Psychiatric: Yes: WNL Labs: CBC, BMP 09/25/16 05:20 09/25/16 05:20 INR, PTT INR 2.89 (0.82-1.09) H 09/25/16 05:20 Problem List - Problems (1) Anemia Code(s): D64.9 - ANEMIA, UNSPECIFIED Qualifiers: Anemia type: iron deficiency (2) CHF (congestive heart failure) Code(s): I50.9 - HEART FAILURE, UNSPECIFIED Qualifiers: Congestive heart failure type: diastolic Congestive heart failure chronicity: acute on chronic Qualified Code(s): I50.33 - Acute on chronic diastolic (congestive) heart failure (3) Elevated serum creatinine Code(s): R79.89 - OTHER SPECIFIED ABNORMAL FINDINGS OF BLOOD CHEMISTRY (4) Hepatic cirrhosis Assessment/Plan: HEPATOMA WITH + MALIGNANCY Code(s): K74.60 - UNSPECIFIED CIRRHOSIS OF LIVER Qualifiers: Hepatic cirrhosis type: unspecified hepatic cirrhosis Ascites presence : without ascites Qualified Code(s): K74.60 - Unspecified cirrhosis of liver (5) Rheumatic heart disease Code(s): I09.9 - RHEUMATIC HEART DISEASE, UNSPECIFIED (6) S/P AVR (aortic valve replacement) Code(s): Z95.2 - PRESENCE OF PROSTHETIC HEART VALVE (7) S/P MVR (mitral valve replacement) Code(s): Z95.2 - PRESENCE OF PROSTHETIC HEART VALVE (9) Shortness of breath Code(s): R06.02 - SHORTNESS OF BREATH Assessment/Plan PATIENT AND FAMILY HAVE AGREED ON [facility] FOR FURTHER MEDICAL CARE NO INTERVENTIONS AT THIS TIME MONITOR LABS/INR ON COUMADIN DIURESIS OPTIMIZED WITH INOTROPIC MEDS IV PROTONIC AND OCTREOTIDE
[2016-09-25] MEDS: ZOLPIDEM TARTRATE 5 MG TABLET PO PRN (23:27)
[2016-09-26 06:46] LABS: MCHC 31.5 g/dl (32.0-36.0); MEAN CELL VOLUME 88.7 fl (80-96); MEAN PLT VOLUME 8.9 fl (7.5-11.1); PLATELET COUNT 198 K/MM3 (134-434); RDW 17.2 % (11.6-15.6); WHITE BLOOD COUNT 5.5 K/mm3 (4.0-10.0)
[2016-09-26 07:00] LABS: INR 2.96 (0.82-1.09); PROTHROMBIN TIME (PATIENT) 33.3 SEC (9.98-11.88)
[2016-09-26] MEDS: FUROSEMIDE 40 MG/4 ML INJECTABLE VIAL IVPUSH SCH ×2 (07:00→13:39)
[2016-09-26 07:03] LABS: ACTIVATED PTT 43.9 SECONDS (26.9-34.4)
[2016-09-26 07:14] LABS: ALBUMIN 2.9 g/dl (3.4-5.0); CALCIUM 8.1 mg/dL (8.5-10.1)
[2016-09-26 07:16] LABS: BILIRUBIN,TOTAL 1.3 mg/dL (0.2-1.0); CREATININE 1.3 mg/dL (0.55-1.02); TOT PROT 5.9 g/dl (6.4-8.2)
[2016-09-26] MEDS: PANTOPRAZOLE SODIUM 80 MG in SODIUM CHLORIDE 100 ML IVPB SCH ×3 (07:45→07:46)
[2016-09-26] MEDS ORDERED: morphine CARPU-JECT 2 MG/1 ML DISP.SYRIN IVPUSH PRN (07:48)
[2016-09-26] MEDS ORDERED: ACETAMINOPHEN 325 MG TABLET (FP) PO PRN (07:48)
[2016-09-26] MEDS ORDERED: OCTREOTIDE ACETATE 1,200 MCG in DEXTROSE 5%-WATER - 488 ML IVPB SCH (07:48)
[2016-09-26] MEDS: FERROUS SO4 325 MG TABLET (FP) PO SCH ×2 (09:29→18:41)
[2016-09-26] MEDS: LOSARTAN POTASSIUM 50 MG TABLET (FP) PO SCH (09:29)
[2016-09-26] MEDS: SPIRONOLACTONE 25 MG TABLET (FP) PO SCH (09:29)
[2016-09-26] MEDS: BACITRACIN 30 GM TUBE TOPICAL OINTMENT TP SCH ×2 (09:29→21:09)
[2016-09-26] MEDS ORDERED: PANTOPRAZOLE SODIUM 80 MG in SODIUM CHLORIDE 100 ML IVPB SCH (09:30)
[2016-09-26] MEDS: OPTH OD SCH ×2 (09:34→21:09)
[2016-09-26] MEDS: DIFLUPREDNATE 0.05% OD SCH ×2 (09:34→21:09)
--- NOTE | 2016-09-26 11:03 | PN ---
Progress Note, Physician History of Present Illness: Awake, alert Offers no complaints No fever/ chills No suprapubic tendernes WBC WNL Urine c/s E. coli - Current Medication List Current Medications: Active Medications Acetaminophen (Tylenol -) 650 mg PO Q6H PRN PRN Reason: FEVER OR PAIN Albuterol Sulfate (Ventolin 0.083% Nebulizer Soln -) 1 amp NEB Q4H PRN PRN Reason: SHORT OF BREATH/WHEEZING Bacitracin (Bacitracin -) 1 applic TP BID [facility] Last Admin: 09/26/16 09:29 Dose: 1 applic Ferrous Sulfate (Feosol -) 325 mg PO BIDWM [facility]ELARDO Last Admin: 09/26/16 09:29 Dose: 325 mg Furosemide (Lasix Injection -) 40 mg IVPUSH BID@0600,1400 [facility] Pantoprazole Sodium 80 mg/ (Sodium Chloride) 100 mls @ 10 mls/hr IVPB Q10H ABELARDO PRN Reason: 8 MG/HR Last Admin: 09/26/16 09:28 Dose: Not Given Octreotide Acetate 1,200 mcg/ (Dextrose) 500 mls @ 20.83 mls/hr IVPB ASDIR ABELARDO ; 50 MCG/HR PRN Reason: Protocol Last Admin: 09/26/16 09:28 Dose: Not Given Losartan Potassium (Cozaar -) 25 mg PO DAILY [facility] Last Admin: 09/26/16 09:29 Dose: 25 mg Metolazone (Zaroxolyn -) 5 mg PO DAILY@1330 [facility]O Morphine Sulfate (Morphine Injection -) 2 mg IVPUSH Q4H PRN PRN Reason: SHORTNESS OF BREATH Difluprednate ( Durezol) 0.05% Opth Drops - Pt's Own 1 each OD BID [facility] Last Admin: 09/26/16 09:34 Dose: 1 each Spironolactone (Aldactone -) 25 mg PO DAILY [facility] Last Admin: 09/26/16 09:29 Dose: 25 mg Warfarin Sodium (Coumadin -) 2 mg PO DAILY@1800 [facility]O Zolpidem Tartrate (Ambien -) 7.5 mg PO HS PRN PRN Reason: insomnia Last Admin: 09/25/16 23:27 Dose: 7.5 mg - Objective Vital Signs: Vital Signs Temperature 97.8 F 09/26/16 02:00 Pulse Rate 60 09/26/16 09:40 Respiratory Rate 18 09/26/16 08:00 Blood Pressure 98/39 09/26/16 08:00 O2 Sat by Pulse Oximetry (%) 97 09/26/16 09:40 Constitutional: Yes: No Distress Eyes: Yes: Conjunctiva Clear Cardiovascular: Yes: Regular Rate and Rhythm, Murmur, S1, S2 Respiratory: Yes: Diminished Gastrointestinal: Yes: Normal Bowel Sounds, Soft. No: Tenderness Edema: Yes Edema: LLE: 1+, RLE: 1+ Labs: CBC, BMP 09/26/16 05:27 09/26/16 05:27 INR, PTT INR 2.96 (0.82-1.09) H 09/26/16 05:27 Assessment/Plan Probable urinary tract colonization No evidence of systemic infection Observe off antibiotics
--- NOTE | 2016-09-26 12:13 | PN ---
Teaching Attending Note Name of Resident: James Ding ATTENDING PHYSICIAN STATEMENT I saw and evaluated the patient. I reviewed the resident's note and discussed the case with the resident. I agree with the resident's findings and plan as documented. SUBJECTIVE: Patient seen and examined in the ICU. Insomnia. Breathing feels about the same. No abdominal tenderness. Some dry cough. Intake & Output 09/23/16 09/24/16 09/25/16 09/26/16 23:59 23:59 23:59 23:59 Intake Total 1963.6 2046.2 1009.6 489.6 Output Total 3000 3300 2200 400 Balance -1036.4 -1253.8 -1190.4 89.6 Weight 147 lb 3.2 oz 138 lb 144 lb 2.917 oz Last Vital Signs Temp Pulse Resp BP Pulse Ox 98.0 F 56 L 22 126/46 97 09/26/16 10:00 09/26/16 10:00 09/26/16 10:00 09/26/16 10:00 09/26/16 11:26 Active Medications Acetaminophen (Tylenol -) 650 mg PO Q6H PRN PRN Reason: FEVER OR PAIN Albuterol Sulfate (Ventolin 0.083% Nebulizer Soln -) 1 amp NEB Q4H PRN PRN Reason: SHORT OF BREATH/WHEEZING Bacitracin (Bacitracin -) 1 applic TP BID [facility] Last Admin: 09/26/16 09:29 Dose: 1 applic Ferrous Sulfate (Feosol -) 325 mg PO BIDWM [facility] Last Admin: 09/26/16 09:29 Dose: 325 mg Furosemide (Lasix Injection -) 40 mg IVPUSH BID@0600,1400 [facility] Pantoprazole Sodium 80 mg/ (Sodium Chloride) 100 mls @ 10 mls/hr IVPB Q10H ABELARDO PRN Reason: 8 MG/HR Last Admin: 09/26/16 09:28 Dose: Not Given Octreotide Acetate 1,200 mcg/ (Dextrose) 500 mls @ 20.83 mls/hr IVPB ASDIR ABELARDO ; 50 MCG/HR PRN Reason: Protocol Last Admin: 09/26/16 09:28 Dose: Not Given Losartan Potassium (Cozaar -) 25 mg PO DAILY [facility] Last Admin: 09/26/16 09:29 Dose: 25 mg Metolazone (Zaroxolyn -) 5 mg PO DAILY@1330 [facility] Morphine Sulfate (Morphine Injection -) 2 mg IVPUSH Q4H PRN PRN Reason: SHORTNESS OF BREATH Difluprednate ( Durezol) 0.05% Opth Drops - Pt's Own 1 each OD BID [facility] Last Admin: 09/26/16 09:34 Dose: 1 each Spironolactone (Aldactone -) 25 mg PO DAILY [facility] Last Admin: 09/26/16 09:29 Dose: 25 mg Warfarin Sodium (Coumadin -) 2 mg PO DAILY@1800 [facility] Zolpidem Tartrate (Ambien -) 7.5 mg PO HS PRN PRN Reason: insomnia Last Admin: 09/25/16 23:27 Dose: 7.5 mg Gen: Awake and alert, NAD Heart: RRR Lung: bibasilar rales Abd: soft, nontender Ext: decreasing edema Laboratory Results - last 24 hr 09/22/16 09/26/16 09/26/16 11:53 05:27 05:27 WBC 5.5 RBC 2.85 L Hgb 8.0 L Hct 25.3 L MCV 88.7 MCHC 31.5 L RDW 17.2 H Plt Count 198 MPV 8.9 INR 2.96 H PTT (Actin FS) 43.9 H Sodium Potassium Chloride Carbon Dioxide Anion Gap BUN Creatinine Creat Clearance w eGFR Random Glucose Calcium Total Bilirubin AST ALT Alkaline Phosphatase Total Protein Albumin Blood Type O POSITIVE Antibody Screen Negative Crossmatch See Detail 09/26/16 05:27 WBC RBC Hgb Hct MCV MCHC RDW Plt Count MPV INR PTT (Actin FS) Sodium 135 L Potassium 3.7 Chloride 86 L Carbon Dioxide 44 H Anion Gap 5 L BUN 63 H Creatinine 1.3 H Creat Clearance w eGFR 39.02 Random Glucose 109 H Calcium 8.1 L Total Bilirubin 1.3 H AST 129 H ALT 52 Alkaline Phosphatase 115 Total Protein 5.9 L Albumin 2.9 L Blood Type Antibody Screen Crossmatch ASSESSMENT AND PLAN: Acute on Chronic LV Diastolic Heart Failure/Right Heart Failure Pulmonary HTN s/p AVR/MVR Atrial Fibrillation Liver Cirrhosis Likely HCC GI Bleed Anemia h/o AVM - Lasix, aldactone, zaroxolyn - monitor urine output, creatinine - daily weights, I/Os - rate control - monitor H/H - Protonix, octreotide drips - continue anticoagulation for now - O2 to keep SpO2 >90% - Palliative care - DNR/DNI Dr Miller CCTime 35"
--- NOTE | 2016-09-26 12:18 | PN ---
Progress Note, Physician History of Present Illness: Dyspnea, LE edema and ascites improving with inotropic diuresis and compression therapy, no further melena noted, Hgb stable post-transfusion. - Current Medication List Current Medications: Active Medications Acetaminophen (Tylenol -) 650 mg PO Q6H PRN PRN Reason: FEVER OR PAIN Albuterol Sulfate (Ventolin 0.083% Nebulizer Soln -) 1 amp NEB Q4H PRN PRN Reason: SHORT OF BREATH/WHEEZING Bacitracin (Bacitracin -) 1 applic TP BID [facility] Last Admin: 09/26/16 09:29 Dose: 1 applic Ferrous Sulfate (Feosol -) 325 mg PO BIDWM [facility] Last Admin: 09/26/16 09:29 Dose: 325 mg Furosemide (Lasix Injection -) 40 mg IVPUSH BID@0600,1400 [facility] Pantoprazole Sodium 80 mg/ (Sodium Chloride) 100 mls @ 10 mls/hr IVPB Q10H ABELARDO PRN Reason: 8 MG/HR Last Admin: 09/26/16 09:28 Dose: Not Given Octreotide Acetate 1,200 mcg/ (Dextrose) 500 mls @ 20.83 mls/hr IVPB ASDIR ABELARDO ; 50 MCG/HR PRN Reason: Protocol Last Admin: 09/26/16 09:28 Dose: Not Given Losartan Potassium (Cozaar -) 25 mg PO DAILY [facility] Last Admin: 09/26/16 09:29 Dose: 25 mg Metolazone (Zaroxolyn -) 5 mg PO DAILY@1330 [facility] Morphine Sulfate (Morphine Injection -) 2 mg IVPUSH Q4H PRN PRN Reason: SHORTNESS OF BREATH Difluprednate ( Durezol) 0.05% Opth Drops - Pt's Own 1 each OD BID [facility] Last Admin: 09/26/16 09:34 Dose: 1 each Spironolactone (Aldactone -) 25 mg PO DAILY [facility] Last Admin: 09/26/16 09:29 Dose: 25 mg Warfarin Sodium (Coumadin -) 2 mg PO DAILY@1800 [facility] Zolpidem Tartrate (Ambien -) 7.5 mg PO HS PRN PRN Reason: insomnia Last Admin: 09/25/16 23:27 Dose: 7.5 mg - Objective Vital Signs: Vital Signs Temperature 98.0 F 09/26/16 10:00 Pulse Rate 56 L 09/26/16 10:00 Respiratory Rate 22 09/26/16 10:00 Blood Pressure 126/46 09/26/16 10:00 O2 Sat by Pulse Oximetry (%) 97 09/26/16 11:26 Constitutional: Yes: No Distress, Calm, Thin Neck: Yes: Supple Cardiovascular: Yes: Pulse Irregular, Murmur (2/6 SM), Other (Greer mechanical valve sounds) Respiratory: Yes: Regular, Diminished, On Nasal O2 Gastrointestinal: Yes: Normal Bowel Sounds, Soft Edema: Yes Edema: LLE: Trace, RLE: Trace Labs: CBC, BMP 09/26/16 05:27 09/26/16 05:27 INR, PTT INR 2.96 (0.82-1.09) H 09/26/16 05:27 - ....Imaging Chest X-ray: Report Reviewed (Stable) Problem List - Problems (1) CHF (congestive heart failure) Code(s): I50.9 - HEART FAILURE, UNSPECIFIED Qualifiers: Congestive heart failure type: diastolic Congestive heart failure chronicity: acute on chronic Qualified Code(s): I50.33 - Acute on chronic diastolic (congestive) heart failure (2) Rheumatic heart disease Code(s): I09.9 - RHEUMATIC HEART DISEASE, UNSPECIFIED (3) S/P AVR (aortic valve replacement) Code(s): Z95.2 - PRESENCE OF PROSTHETIC HEART VALVE (4) S/P MVR (mitral valve replacement) Code(s): Z95.2 - PRESENCE OF PROSTHETIC HEART VALVE (6) Shortness of breath Code(s): R06.02 - SHORTNESS OF BREATH (7) Permanent atrial fibrillation Code(s): I48.2 - CHRONIC ATRIAL FIBRILLATION (8) Pulmonary hypertension Code(s): I27.2 - OTHER SECONDARY PULMONARY HYPERTENSION (9) Venous stasis dermatitis of both lower extremities Code(s): I83.11 - VARICOSE VEINS OF RIGHT LOWER EXTREMITY WITH INFLAMMATION I83.12 - VARICOSE VEINS OF LEFT LOWER EXTREMITY WITH INFLAMMATION (10) Cholelithiasis Code(s): K80.20 - CALCULUS OF GALLBLADDER W/O CHOLECYSTITIS W/O OBSTRUCTION Qualifiers: Cholelithiasis location: gallbladder Cholecystitis presence: without cholecystitis Biliary obstruction: without biliary obstruction Qualified Code(s): K80.20 - Calculus of gallbladder without cholecystitis without obstruction (11) Hepatic cirrhosis Code(s): K74.60 - UNSPECIFIED CIRRHOSIS OF LIVER Qualifiers: Hepatic cirrhosis type: unspecified hepatic cirrhosis Ascites presence : without ascites Qualified Code(s): K74.60 - Unspecified cirrhosis of liver (12) Hepatocellular carcinoma Code(s): C22.0 - LIVER CELL CARCINOMA Assessment/Plan 1. 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 Severe pulmonary HTN related to above 3. Post MVR and AVR (mechanical prosthesis) with history of rheumatic heart disease 4. Post TVR (Bio-prosthesis) 5. Permanent atrial fibrillation with slow ventricular response, asymptomatic 6. History of hepatic cirrhosis with likely HCC 7. Acute on CKD 8. Anemia with dropping H/H post transfusion, 2/2 GI bleed, h/o AVM PLAN: 1. Decrease Lasix 20 IV bid, d/c Zaroxolyn 5 qd and continue Aldactone 25 qd with caution and close monitoring of renal function 2. Continue Coumadin as per INR maintain 2.5-3.0 with close monitoring of H/H 3. Continue Cozaar 25 qd with caution and close monitoring of renal function 4. Weaned off Dobutamine drip 5. Monitor H/H and maintain Hg equal or > 8.0, protonix, octreotide gtts, endoscopy is risky 6. O2 to maintain saO2, support stockings, OOB to chair, DNR/DNI
[2016-09-26] MEDS ORDERED: METOLAZONE 5 MG TABLET PO SCH (13:30)
[2016-09-26] MEDS: ALBUTEROL SO4 0.083% IH SOL 2.5 MG/3 ML VIAL.NEB. NEB PRN (13:50)
--- NOTE | 2016-09-26 13:51 | PN ---
Progress Note, Physician History of Present Illness: patient seen ad examined at bedside SOB improved per patient slept well last night - Current Medication List Current Medications: Active Medications Acetaminophen (Tylenol -) 650 mg PO Q6H PRN PRN Reason: FEVER OR PAIN Albuterol Sulfate (Ventolin 0.083% Nebulizer Soln -) 1 amp NEB Q4H PRN PRN Reason: SHORT OF BREATH/WHEEZING Last Admin: 09/26/16 13:50 Dose: 1 amp Bacitracin (Bacitracin -) 1 applic TP BID [facility] Last Admin: 09/26/16 09:29 Dose: 1 applic Ferrous Sulfate (Feosol -) 325 mg PO BIDWM [facility] Last Admin: 09/26/16 09:29 Dose: 325 mg Furosemide (Lasix Injection -) 20 mg IVPUSH BID@0600,1400 [facility] Last Admin: 09/26/16 13:39 Dose: 20 mg Pantoprazole Sodium 80 mg/ (Sodium Chloride) 100 mls @ 10 mls/hr IVPB Q10H ABELARDO PRN Reason: 8 MG/HR Last Admin: 09/26/16 09:28 Dose: Not Given Octreotide Acetate 1,200 mcg/ (Dextrose) 500 mls @ 20.83 mls/hr IVPB ASDIR ABELARDO ; 50 MCG/HR PRN Reason: Protocol Last Admin: 09/26/16 09:28 Dose: Not Given Losartan Potassium (Cozaar -) 25 mg PO DAILY [facility] Last Admin: 09/26/16 09:29 Dose: 25 mg Morphine Sulfate (Morphine Injection -) 2 mg IVPUSH Q4H PRN PRN Reason: SHORTNESS OF BREATH Difluprednate ( Durezol) 0.05% Opth Drops - Pt's Own 1 each OD BID [facility] Last Admin: 09/26/16 09:34 Dose: 1 each Spironolactone (Aldactone -) 25 mg PO DAILY [facility] Last Admin: 09/26/16 09:29 Dose: 25 mg Warfarin Sodium (Coumadin -) 2 mg PO DAILY@1800 ABELARDO Zolpidem Tartrate (Ambien -) 7.5 mg PO HS PRN PRN Reason: insomnia Last Admin: 09/25/16 23:27 Dose: 7.5 mg - Objective Vital Signs: Vital Signs Temperature 98.0 F 09/26/16 10:00 Pulse Rate 64 09/26/16 12:00 Respiratory Rate 24 09/26/16 12:00 Blood Pressure 114/60 09/26/16 12:00 O2 Sat by Pulse Oximetry (%) 97 09/26/16 11:26 Constitutional: Yes: thin no distress Eyes: Yes: Conjunctiva Clear HENT: Yes: Atraumatic, Normocephalic Neck: Yes: Supple, Trachea Midline Cardiovascular: Yes: Pulse Irregular, Murmur (3/6 murmur at apex and RUSB and LUSB), S1, S2 Respiratory: Yes: Other (cracklesand wheezing bilaterally L>R) Gastrointestinal: Yes: WNL, Soft Genitourinary: Yes: Dawn Present urine clearing Musculoskeletal: Yes: Muscle Pain Edema: Yes Edema: LLE: 1+, RLE: + same as yesterday improved overall Integumentary: Yes: Venous Stasis Changes (b/l LE) Neurological: Yes: Alert, Oriented, Cranial Nerves II-XII Intact Labs: CBC, BMP 09/26/16 05:27 09/26/16 05:27 INR, PTT INR 2.96 (0.82-1.09) H 09/26/16 05:27 Assessment/Plan 86F with multiple medical problems admitted for CHF exacerbation transferred to ICU for dobutamine gtt now with possible GI bleed and acute anemia problems list: 1. RADHA 2. aortic valve replacement 3. mitral valve replacement 4. tricuspid valve replacement 5. CHF 6. a-fib 7. anemia 8. hx GI bleed 9. HTN 10. liver cirrhosis 11. CKD Neuro: Neurologically intact pain controlled no issues CV: dobutamine gtt stopped now off for 24hrs Continue lasix for CHF continue metolazone losartan aldactone continue coumadin 2mg tonight Afib rate controlled Meds adjusted per cardiology Resp: continue to be SOB especially with minimal exertion but improving BiPAP PRN patient currently refusing GI: possible GI bleed FOBT positive Hepatoma and cirrhosis per GI-poor prognosis Palliative care consulted octreotide gtt and protonix gtt per GI Hb stable Dr. Rojo saw patient high risk for endoscopy Hemetology: Black tarry stools resolved will not reverse INR since has valve replacements s/p 1 unit PRBCs with Hb appropriately responding to 8 currently stable keep Hb>8 continue to trend renal: acute on chronic renal failure Cr unchanged renal consult appreciated cr 1.3 Insomnia: Increased ambien to 7.5mg hs patient did well FEN: no fluids no electrolyte abnormalities CLD advance to soft PPx: On coumadin Protonic gtt otreotide gtt PT consult Patient seen case discussed with Dr. paez Patient now DNR/DNI discussion to go to [facility], [place] transfer to telemetry
[2016-09-26] MEDS ORDERED: FUROSEMIDE 40 MG/4 ML INJECTABLE VIAL IVPUSH SCH (14:00)
--- NOTE | 2016-09-26 14:59 | PN ---
Progress Note, Physician History of Present Illness: Pt seen and examined at bedside. She is awake and alert. She complains of shortness of breath with minimal movement. - Current Medication List Current Medications: Active Medications Acetaminophen (Tylenol -) 650 mg PO Q6H PRN PRN Reason: FEVER OR PAIN Albuterol Sulfate (Ventolin 0.083% Nebulizer Soln -) 1 amp NEB Q4H PRN PRN Reason: SHORT OF BREATH/WHEEZING Last Admin: 09/26/16 13:50 Dose: 1 amp Bacitracin (Bacitracin -) 1 applic TP BID [facility] Last Admin: 09/26/16 09:29 Dose: 1 applic Ferrous Sulfate (Feosol -) 325 mg PO BIDWM [facility] Last Admin: 09/26/16 09:29 Dose: 325 mg Furosemide (Lasix Injection -) 20 mg IVPUSH BID@0600,1400 [facility] Last Admin: 09/26/16 13:39 Dose: 20 mg Losartan Potassium (Cozaar -) 25 mg PO DAILY [facility] Last Admin: 09/26/16 09:29 Dose: 25 mg Morphine Sulfate (Morphine Injection -) 2 mg IVPUSH Q4H PRN PRN Reason: SHORTNESS OF BREATH Difluprednate ( Durezol) 0.05% Opth Drops - Pt's Own 1 each OD BID [facility] Last Admin: 09/26/16 09:34 Dose: 1 each Pantoprazole Sodium (Protonix -) 40 mg PO BID [facility] Spironolactone (Aldactone -) 25 mg PO DAILY [facility] Last Admin: 09/26/16 09:29 Dose: 25 mg Warfarin Sodium (Coumadin -) 2 mg PO DAILY@1800 [facility] Zolpidem Tartrate (Ambien -) 7.5 mg PO HS PRN PRN Reason: insomnia Last Admin: 09/25/16 23:27 Dose: 7.5 mg - Objective Vital Signs: Vital Signs Temperature 97.8 F 09/26/16 14:00 Pulse Rate 55 L 09/26/16 14:00 Respiratory Rate 24 09/26/16 14:00 Blood Pressure 96/55 09/26/16 14:00 O2 Sat by Pulse Oximetry (%) 97 09/26/16 11:26 Constitutional: Yes: Calm Eyes: Yes: Conjunctiva Clear HENT: Yes: Atraumatic Neck: Yes: Supple Cardiovascular: Yes: Murmur, S1, S2 Respiratory: Yes: Diminished, On Nasal O2 Gastrointestinal: Yes: Soft Genitourinary: Yes: Dawn Present Edema: Yes Edema: LLE: Trace, RLE: Trace Neurological: Yes: Oriented Psychiatric: Yes: Oriented Labs: CBC, BMP 09/26/16 05:27 09/26/16 05:27 INR, PTT INR 2.96 (0.82-1.09) H 09/26/16 05:27 Problem List - Problems (1) Anemia Code(s): D64.9 - ANEMIA, UNSPECIFIED Qualifiers: Anemia type: iron deficiency (2) CHF (congestive heart failure) Code(s): I50.9 - HEART FAILURE, UNSPECIFIED Qualifiers: Congestive heart failure type: diastolic Congestive heart failure chronicity: acute on chronic Qualified Code(s): I50.33 - Acute on chronic diastolic (congestive) heart failure (3) Cholelithiasis Code(s): K80.20 - CALCULUS OF GALLBLADDER W/O CHOLECYSTITIS W/O OBSTRUCTION Qualifiers: Cholelithiasis location: gallbladder Cholecystitis presence: without cholecystitis Biliary obstruction: without biliary obstruction Qualified Code(s): K80.20 - Calculus of gallbladder without cholecystitis without obstruction (4) Hepatic cirrhosis Code(s): K74.60 - UNSPECIFIED CIRRHOSIS OF LIVER Qualifiers: Hepatic cirrhosis type: unspecified hepatic cirrhosis Ascites presence : without ascites Qualified Code(s): K74.60 - Unspecified cirrhosis of liver (5) S/P AVR (aortic valve replacement) Code(s): Z95.2 - PRESENCE OF PROSTHETIC HEART VALVE (6) S/P MVR (mitral valve replacement) Code(s): Z95.2 - PRESENCE OF PROSTHETIC HEART VALVE (8) Shortness of breath Code(s): R06.02 - SHORTNESS OF BREATH (9) RADHA (acute kidney injury) Code(s): N17.9 - ACUTE KIDNEY FAILURE, UNSPECIFIED Assessment/Plan Current Medications Generic Name Dose Route Start Last Admin Trade Name Freq PRN Reason Stop Dose Admin Acetaminophen 650 mg 09/26/16 07:48 Tylenol - PO Q6H PRN FEVER OR PAIN Albuterol Sulfate 1 amp 09/26/16 07:48 09/26/16 13:50 Ventolin 0.083% Nebulizer Soln - NEB 1 amp Q4H PRN Administration SHORT OF BREATH/WHEEZING Bacitracin 1 applic 09/26/16 10:00 09/26/16 09:29 Bacitracin - TP 1 applic BID ABELARDO Administration Ferrous Sulfate 325 mg 09/26/16 08:15 09/26/16 09:29 Feosol - PO 325 mg BIDWM ABELARDO Administration Furosemide 20 mg 09/26/16 14:00 09/26/16 13:39 Lasix Injection - IVPUSH 20 mg BID@0600,1400 ABELARDO Administration Losartan Potassium 25 mg 09/26/16 10:00 09/26/16 09:29 Cozaar - PO 25 mg DAILY ABELARDO Administration Morphine Sulfate 2 mg 09/26/16 07:48 Morphine Injection - IVPUSH Q4H PRN SHORTNESS OF BREATH Difluprednate ( 1 each 09/26/16 10:00 09/26/16 09:34 Durezol) 0.05% Opth OD 1 each Drops - Pt's Own BID ABELARDO Administration Pantoprazole Sodium 40 mg 09/26/16 22:00 Protonix - PO BID ABELARDO Spironolactone 25 mg 09/26/16 10:00 09/26/16 09:29 Aldactone - PO 25 mg DAILY ABELARDO Administration Warfarin Sodium 2 mg 09/26/16 18:00 Coumadin - PO DAILY@1800 ABELARDO Zolpidem Tartrate 7.5 mg 09/25/16 11:00 09/25/16 23:27 Ambien - PO 7.5 mg HS PRN Administration insomnia Impression 1. RADHA 2. aortic valve replacement 3. mitral valve replacement 4. tricuspid valve replacement 5. CHF 6. a-fib 7. anemia 8. hx GI bleed 9. HTN 10. liver cirrhosis 11. CKD Plan - cont aldactone and lasix - repeat labs in am - appliance adjuster is a little higher today - discussed urine cultures with ID, no treatment at this time - d/c enma when possible - case discussed with family - will follow - monitor bp - volume status is improving - may need to settle for higher creatinine to keep pt euvolemic - monitor INR - will follow Dr Bo
--- NOTE | 2016-09-26 16:51 | PN ---
Progress Note, Physician Chief Complaint: LOOKS BETTER MORE ALERT LESS DYSPNEA HAD D/W FAMILY AT BEDSIDE - Current Medication List Current Medications: Active Medications Acetaminophen (Tylenol -) 650 mg PO Q6H PRN PRN Reason: FEVER OR PAIN Albuterol Sulfate (Ventolin 0.083% Nebulizer Soln -) 1 amp NEB Q4H PRN PRN Reason: SHORT OF BREATH/WHEEZING Last Admin: 09/26/16 13:50 Dose: 1 amp Bacitracin (Bacitracin -) 1 applic TP BID [facility] Last Admin: 09/26/16 09:29 Dose: 1 applic Ferrous Sulfate (Feosol -) 325 mg PO BIDWM [facility] Last Admin: 09/26/16 09:29 Dose: 325 mg Furosemide (Lasix Injection -) 20 mg IVPUSH BID@0600,1400 [facility] Last Admin: 09/26/16 13:39 Dose: 20 mg Losartan Potassium (Cozaar -) 25 mg PO DAILY [facility] Last Admin: 09/26/16 09:29 Dose: 25 mg Morphine Sulfate (Morphine Injection -) 2 mg IVPUSH Q4H PRN PRN Reason: SHORTNESS OF BREATH Difluprednate ( Durezol) 0.05% Opth Drops - Pt's Own 1 each OD BID [facility] Last Admin: 09/26/16 09:34 Dose: 1 each Pantoprazole Sodium (Protonix -) 40 mg PO BID [facility] Spironolactone (Aldactone -) 25 mg PO DAILY [facility] Last Admin: 09/26/16 09:29 Dose: 25 mg Warfarin Sodium (Coumadin -) 2 mg PO DAILY@1800 [facility] Zolpidem Tartrate (Ambien -) 7.5 mg PO HS PRN PRN Reason: insomnia Last Admin: 09/25/16 23:27 Dose: 7.5 mg - Objective Vital Signs: Vital Signs Temperature 97.8 F 09/26/16 14:00 Pulse Rate 57 L 09/26/16 16:00 Respiratory Rate 24 09/26/16 16:00 Blood Pressure 102/76 09/26/16 16:00 O2 Sat by Pulse Oximetry (%) 97 09/26/16 15:20 Constitutional: Yes: Calm Cardiovascular: Yes: S1, S2 Respiratory: Yes: CTA Bilaterally Gastrointestinal: Yes: Normal Bowel Sounds, Soft Edema: Yes Labs: CBC, BMP 09/26/16 05:27 09/26/16 05:27 INR, PTT INR 2.96 (0.82-1.09) H 09/26/16 05:27 Problem List - Problems (1) Anemia Code(s): D64.9 - ANEMIA, UNSPECIFIED Qualifiers: Anemia type: iron deficiency (2) CHF (congestive heart failure) Code(s): I50.9 - HEART FAILURE, UNSPECIFIED Qualifiers: Congestive heart failure type: diastolic Congestive heart failure chronicity: acute on chronic Qualified Code(s): I50.33 - Acute on chronic diastolic (congestive) heart failure (3) Elevated serum creatinine Code(s): R79.89 - OTHER SPECIFIED ABNORMAL FINDINGS OF BLOOD CHEMISTRY (4) Hepatic cirrhosis Code(s): K74.60 - UNSPECIFIED CIRRHOSIS OF LIVER Qualifiers: Hepatic cirrhosis type: unspecified hepatic cirrhosis Ascites presence : without ascites Qualified Code(s): K74.60 - Unspecified cirrhosis of liver (5) Rheumatic heart disease Code(s): I09.9 - RHEUMATIC HEART DISEASE, UNSPECIFIED (6) S/P AVR (aortic valve replacement) Code(s): Z95.2 - PRESENCE OF PROSTHETIC HEART VALVE (7) S/P MVR (mitral valve replacement) Code(s): Z95.2 - PRESENCE OF PROSTHETIC HEART VALVE (8) Shortness of breath Code(s): R06.02 - SHORTNESS OF BREATH Assessment/Plan (1) Anemia Code(s): D64.9 - ANEMIA, UNSPECIFIED Qualifiers: Anemia type: iron deficiency (2) CHF (congestive heart failure) Code(s): I50.9 - HEART FAILURE, UNSPECIFIED Qualifiers: Congestive heart failure type: diastolic Congestive heart failure chronicity: acute on chronic Qualified Code(s): I50.33 - Acute on chronic diastolic (congestive) heart failure (3) Elevated serum creatinine Code(s): R79.89 - OTHER SPECIFIED ABNORMAL FINDINGS OF BLOOD CHEMISTRY (4) Hepatic cirrhosis Assessment/Plan: HEPATOMA WITH + MALIGNANCY Code(s): K74.60 - UNSPECIFIED CIRRHOSIS OF LIVER Qualifiers: Hepatic cirrhosis type: unspecified hepatic cirrhosis Ascites presence : without ascites Qualified Code(s): K74.60 - Unspecified cirrhosis of liver (5) Rheumatic heart disease Code(s): I09.9 - RHEUMATIC HEART DISEASE, UNSPECIFIED (6) S/P AVR (aortic valve replacement) Code(s): Z95.2 - PRESENCE OF PROSTHETIC HEART VALVE (7) S/P MVR (mitral valve replacement) Code(s): Z95.2 - PRESENCE OF PROSTHETIC HEART VALVE (9) Shortness of breath Code(s): R06.02 - SHORTNESS OF BREATH Assessment/Plan PATIENT AND FAMILY HAVE AGREED ON [facility]ARY FOR FURTHER MEDICAL CARE NO INTERVENTIONS AT THIS TIME MONITOR LABS/INR ON COUMADIN DIURESIS OPTIMIZED WITH INOTROPIC MEDS IV PROTONIC AND OCTREOTIDE
[2016-09-26] MEDS: WARFARIN NA 2 MG TABLET (UD) PO SCH (18:41)
[2016-09-26] MEDS: PANTOPRAZOLE 40 MG TABLET (FP) PO SCH (21:08)
[2016-09-26] MEDS: ZOLPIDEM TARTRATE 5 MG TABLET PO PRN (22:40)
[2016-09-27] MEDS: FUROSEMIDE 40 MG/4 ML INJECTABLE VIAL IVPUSH SCH ×2 (06:12→13:23)
[2016-09-27] MEDS: FERROUS SO4 325 MG TABLET (FP) PO SCH ×2 (07:55→17:45)
[2016-09-27 08:07] LABS: MCHC 32.5 g/dl (32.0-36.0); MEAN CELL VOLUME 89.4 fl (80-96); MEAN PLT VOLUME 8.9 fl (7.5-11.1); PLATELET COUNT 182 K/MM3 (134-434); RDW 17.2 % (11.6-15.6); WHITE BLOOD COUNT 5.3 K/mm3 (4.0-10.0)
[2016-09-27 08:39] LABS: INR 2.48 (0.82-1.09); PROTHROMBIN TIME (PATIENT) 27.8 SEC (9.98-11.88)
[2016-09-27 08:42] LABS: ACTIVATED PTT 43.2 SECONDS (26.9-34.4)
[2016-09-27 09:20] LABS: CALCIUM 8.1 mg/dL (8.5-10.1)
[2016-09-27 09:25] LABS: BILIRUBIN,TOTAL 1.2 mg/dL (0.2-1.0); CREATININE 1.4 mg/dL (0.55-1.02)
[2016-09-27] MEDS: LOSARTAN POTASSIUM 50 MG TABLET (FP) PO SCH (09:39)
[2016-09-27] MEDS: PANTOPRAZOLE 40 MG TABLET (FP) PO SCH ×2 (09:40→21:27)
[2016-09-27] MEDS: SPIRONOLACTONE 25 MG TABLET (FP) PO SCH (09:40)
[2016-09-27] MEDS: BACITRACIN 30 GM TUBE TOPICAL OINTMENT TP SCH ×2 (09:40→21:27)
[2016-09-27] MEDS: OPTH OD SCH ×2 (09:49→21:27)
[2016-09-27] MEDS: DIFLUPREDNATE 0.05% OD SCH ×2 (09:49→21:27)
--- NOTE | 2016-09-27 10:03 | PN ---
Progress Note, Physician History of Present Illness: pulmonary alert,comfortable,less dyspneic,+ cough - Current Medication List Current Medications: Active Medications Acetaminophen (Tylenol -) 650 mg PO Q6H PRN PRN Reason: FEVER OR PAIN Albuterol Sulfate (Ventolin 0.083% Nebulizer Soln -) 1 amp NEB Q4H PRN PRN Reason: SHORT OF BREATH/WHEEZING Last Admin: 09/26/16 13:50 Dose: 1 amp Bacitracin (Bacitracin -) 1 applic TP BID [facility] Last Admin: 09/27/16 09:40 Dose: 1 applic Ferrous Sulfate (Feosol -) 325 mg PO BIDWM [facility] Last Admin: 09/27/16 07:55 Dose: 325 mg Furosemide (Lasix Injection -) 20 mg IVPUSH BID@0600,1400 [facility] Last Admin: 09/27/16 06:12 Dose: 20 mg Losartan Potassium (Cozaar -) 25 mg PO DAILY [facility] Last Admin: 09/27/16 09:39 Dose: 25 mg Morphine Sulfate (Morphine Injection -) 2 mg IVPUSH Q4H PRN PRN Reason: SHORTNESS OF BREATH Difluprednate ( Durezol) 0.05% Opth Drops - Pt's Own 1 each OD BID [facility] Last Admin: 09/27/16 09:49 Dose: 1 each Pantoprazole Sodium (Protonix -) 40 mg PO BID [facility] Last Admin: 09/27/16 09:40 Dose: 40 mg Spironolactone (Aldactone -) 25 mg PO DAILY [facility] Last Admin: 09/27/16 09:40 Dose: 25 mg Warfarin Sodium (Coumadin -) 2 mg PO DAILY@1800 [facility] Last Admin: 09/26/16 18:41 Dose: 2 mg Zolpidem Tartrate (Ambien -) 7.5 mg PO HS PRN PRN Reason: insomnia Last Admin: 09/26/16 22:40 Dose: 7.5 mg - Objective Vital Signs: Vital Signs Temperature 97.4 F L 09/27/16 06:00 Pulse Rate 74 09/27/16 06:00 Respiratory Rate 16 09/27/16 06:00 Blood Pressure 109/47 09/27/16 06:00 O2 Sat by Pulse Oximetry (%) 97 09/26/16 19:08 Constitutional: Yes: Well Nourished, Calm Eyes: Yes: WNL HENT: Yes: WNL Neck: Yes: WNL Cardiovascular: Yes: Pulse Irregular, S1, S2 Respiratory: Yes: Rales Gastrointestinal: Yes: WNL Extremities: Yes: WNL Edema: Yes Labs: CBC, BMP 09/27/16 05:45 09/27/16 05:45 INR, PTT INR 2.48 (0.82-1.09) H 09/27/16 05:45 Problem List - Problems (1) RADHA (acute kidney injury) Code(s): N17.9 - ACUTE KIDNEY FAILURE, UNSPECIFIED (2) Anemia Code(s): D64.9 - ANEMIA, UNSPECIFIED Qualifiers: Anemia type: iron deficiency (3) CHF (congestive heart failure) Code(s): I50.9 - HEART FAILURE, UNSPECIFIED Qualifiers: Congestive heart failure type: diastolic Congestive heart failure chronicity: acute on chronic Qualified Code(s): I50.33 - Acute on chronic diastolic (congestive) heart failure (4) Cholelithiasis Code(s): K80.20 - CALCULUS OF GALLBLADDER W/O CHOLECYSTITIS W/O OBSTRUCTION Qualifiers: Cholelithiasis location: gallbladder Cholecystitis presence: without cholecystitis Biliary obstruction: without biliary obstruction Qualified Code(s): K80.20 - Calculus of gallbladder without cholecystitis without obstruction (5) Elevated serum creatinine Code(s): R79.89 - OTHER SPECIFIED ABNORMAL FINDINGS OF BLOOD CHEMISTRY (6) Hepatic cirrhosis Code(s): K74.60 - UNSPECIFIED CIRRHOSIS OF LIVER Qualifiers: Hepatic cirrhosis type: unspecified hepatic cirrhosis Ascites presence : without ascites Qualified Code(s): K74.60 - Unspecified cirrhosis of liver (7) Rheumatic heart disease Code(s): I09.9 - RHEUMATIC HEART DISEASE, UNSPECIFIED (8) S/P AVR (aortic valve replacement) Code(s): Z95.2 - PRESENCE OF PROSTHETIC HEART VALVE (9) S/P MVR (mitral valve replacement) Code(s): Z95.2 - PRESENCE OF PROSTHETIC HEART VALVE (11) Shortness of breath Code(s): R06.02 - SHORTNESS OF BREATH Assessment/Plan ASSESSMENT AND PLAN: Acute on Chronic LV Diastolic Heart Failure/Right Heart Failure Pulmonary HTN s/p AVR/MVR Atrial Fibrillation Liver Cirrhosis Likely HCC GI Bleed Anemia h/o AVM - continue lasix, aldactone - monitor urine output, creatinine - daily weights, I/Os - rate controlled - monitor H/H - continue protonix, octreotide gtts - continue anticoagulation for now - O2 to keep SpO2 >90% DR BOUCHER
--- NOTE | 2016-09-27 11:10 | PN ---
Progress Note, Physician History of Present Illness: Dyspnea, LE edema and ascites improving with continued diuresis and compression therapy, no further melena noted, Hgb stable post-transfusion. - Current Medication List Current Medications: Active Medications Acetaminophen (Tylenol -) 650 mg PO Q6H PRN PRN Reason: FEVER OR PAIN Albuterol Sulfate (Ventolin 0.083% Nebulizer Soln -) 1 amp NEB Q4H PRN PRN Reason: SHORT OF BREATH/WHEEZING Last Admin: 09/26/16 13:50 Dose: 1 amp Bacitracin (Bacitracin -) 1 applic TP BID [facility] Last Admin: 09/27/16 09:40 Dose: 1 applic Ferrous Sulfate (Feosol -) 325 mg PO BIDWM [facility] Last Admin: 09/27/16 07:55 Dose: 325 mg Furosemide (Lasix Injection -) 20 mg IVPUSH BID@0600,1400 [facility] Last Admin: 09/27/16 06:12 Dose: 20 mg Losartan Potassium (Cozaar -) 25 mg PO DAILY [facility] Last Admin: 09/27/16 09:39 Dose: 25 mg Morphine Sulfate (Morphine Injection -) 2 mg IVPUSH Q4H PRN PRN Reason: SHORTNESS OF BREATH Difluprednate ( Durezol) 0.05% Opth Drops - Pt's Own 1 each OD BID [facility] Last Admin: 09/27/16 09:49 Dose: 1 each Pantoprazole Sodium (Protonix -) 40 mg PO BID [facility] Last Admin: 09/27/16 09:40 Dose: 40 mg Spironolactone (Aldactone -) 25 mg PO DAILY [facility] Last Admin: 09/27/16 09:40 Dose: 25 mg Warfarin Sodium (Coumadin -) 2 mg PO DAILY@1800 [facility] Last Admin: 09/26/16 18:41 Dose: 2 mg Zolpidem Tartrate (Ambien -) 7.5 mg PO HS PRN PRN Reason: insomnia Last Admin: 09/26/16 22:40 Dose: 7.5 mg - Objective Vital Signs: Vital Signs Temperature 97.4 F L 09/27/16 06:00 Pulse Rate 74 09/27/16 06:00 Respiratory Rate 16 09/27/16 06:00 Blood Pressure 109/47 09/27/16 06:00 O2 Sat by Pulse Oximetry (%) 97 09/26/16 19:08 Constitutional: Yes: No Distress, Calm, Thin Neck: Yes: Supple Cardiovascular: Yes: Pulse Irregular, Murmur (2/6 SM), Other (Obion mechanical valve sounds) Respiratory: Yes: Regular, Diminished, On Nasal O2 Gastrointestinal: Yes: Normal Bowel Sounds, Soft Edema: No Labs: CBC, BMP 09/27/16 05:45 09/27/16 05:45 INR, PTT INR 2.48 (0.82-1.09) H 09/27/16 05:45 Problem List - Problems (1) CHF (congestive heart failure) Code(s): I50.9 - HEART FAILURE, UNSPECIFIED Qualifiers: Congestive heart failure type: diastolic Congestive heart failure chronicity: acute on chronic Qualified Code(s): I50.33 - Acute on chronic diastolic (congestive) heart failure (2) Rheumatic heart disease Code(s): I09.9 - RHEUMATIC HEART DISEASE, UNSPECIFIED (3) S/P AVR (aortic valve replacement) Code(s): Z95.2 - PRESENCE OF PROSTHETIC HEART VALVE (4) S/P MVR (mitral valve replacement) Code(s): Z95.2 - PRESENCE OF PROSTHETIC HEART VALVE (6) Shortness of breath Code(s): R06.02 - SHORTNESS OF BREATH (7) Permanent atrial fibrillation Code(s): I48.2 - CHRONIC ATRIAL FIBRILLATION (8) Pulmonary hypertension Code(s): I27.2 - OTHER SECONDARY PULMONARY HYPERTENSION (9) Venous stasis dermatitis of both lower extremities Code(s): I83.11 - VARICOSE VEINS OF RIGHT LOWER EXTREMITY WITH INFLAMMATION I83.12 - VARICOSE VEINS OF LEFT LOWER EXTREMITY WITH INFLAMMATION (10) Cholelithiasis Code(s): K80.20 - CALCULUS OF GALLBLADDER W/O CHOLECYSTITIS W/O OBSTRUCTION Qualifiers: Cholelithiasis location: gallbladder Cholecystitis presence: without cholecystitis Biliary obstruction: without biliary obstruction Qualified Code(s): K80.20 - Calculus of gallbladder without cholecystitis without obstruction (11) Hepatic cirrhosis Code(s): K74.60 - UNSPECIFIED CIRRHOSIS OF LIVER Qualifiers: Hepatic cirrhosis type: unspecified hepatic cirrhosis Ascites presence : without ascites Qualified Code(s): K74.60 - Unspecified cirrhosis of liver (12) Hepatocellular carcinoma Code(s): C22.0 - LIVER CELL CARCINOMA Assessment/Plan 1. 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 Severe pulmonary HTN related to above 3. Post MVR and AVR (mechanical prosthesis) with history of rheumatic heart disease and therapeutic INR 4. Post TVR (Bio-prosthesis) 5. Permanent atrial fibrillation with slow ventricular response, asymptomatic 6. History of hepatic cirrhosis with likely HCC 7. Acute on CKD 8. Anemia with dropping H/H post transfusion, 2/2 GI bleed, h/o AVM PLAN: 1. Continue Lasix 20 IV bid and Aldactone 25 qd with caution and close monitoring of renal function 2. Continue Coumadin as per INR maintain 2.5-3.0 with close monitoring of H/H 3. Continue Cozaar 25 qd with caution and close monitoring of renal function 4. Monitor H/H and maintain Hg equal or > 8.0, protonix, octreotide gtts, endoscopy is risky 5. O2 to maintain saO2, support stockings, OOB to chair, DNR/DNI
--- NOTE | 2016-09-27 11:27 | PN ---
Progress Note, Physician Chief Complaint: HAD LONG D/W FAMILY REQUESTING FAMILY MEETING WITH PCP - Current Medication List Current Medications: Active Medications Acetaminophen (Tylenol -) 650 mg PO Q6H PRN PRN Reason: FEVER OR PAIN Albuterol Sulfate (Ventolin 0.083% Nebulizer Soln -) 1 amp NEB Q4H PRN PRN Reason: SHORT OF BREATH/WHEEZING Last Admin: 09/26/16 13:50 Dose: 1 amp Bacitracin (Bacitracin -) 1 applic TP BID [facility] Last Admin: 09/27/16 09:40 Dose: 1 applic Ferrous Sulfate (Feosol -) 325 mg PO BIDWM [facility] Last Admin: 09/27/16 07:55 Dose: 325 mg Furosemide (Lasix Injection -) 20 mg IVPUSH BID@0600,1400 [facility] Last Admin: 09/27/16 06:12 Dose: 20 mg Losartan Potassium (Cozaar -) 25 mg PO DAILY [facility] Last Admin: 09/27/16 09:39 Dose: 25 mg Morphine Sulfate (Morphine Injection -) 2 mg IVPUSH Q4H PRN PRN Reason: SHORTNESS OF BREATH Difluprednate ( Durezol) 0.05% Opth Drops - Pt's Own 1 each OD BID [facility] Last Admin: 09/27/16 09:49 Dose: 1 each Pantoprazole Sodium (Protonix -) 40 mg PO BID [facility] Last Admin: 09/27/16 09:40 Dose: 40 mg Spironolactone (Aldactone -) 25 mg PO DAILY [facility] Last Admin: 09/27/16 09:40 Dose: 25 mg Warfarin Sodium (Coumadin -) 2 mg PO DAILY@1800 [facility] Last Admin: 09/26/16 18:41 Dose: 2 mg Zolpidem Tartrate (Ambien -) 7.5 mg PO HS PRN PRN Reason: insomnia Last Admin: 09/26/16 22:40 Dose: 7.5 mg - Objective Vital Signs: Vital Signs Temperature 97.4 F L 09/27/16 06:00 Pulse Rate 74 09/27/16 06:00 Respiratory Rate 16 09/27/16 06:00 Blood Pressure 109/47 09/27/16 06:00 O2 Sat by Pulse Oximetry (%) 97 09/26/16 19:08 Cardiovascular: Yes: S1, S2 Respiratory: Yes: CTA Bilaterally Gastrointestinal: Yes: Normal Bowel Sounds, Soft Edema: No Labs: CBC, BMP 09/27/16 05:45 09/27/16 05:45 INR, PTT INR 2.48 (0.82-1.09) H 09/27/16 05:45 Problem List - Problems (1) Anemia Code(s): D64.9 - ANEMIA, UNSPECIFIED Qualifiers: Anemia type: iron deficiency (2) CHF (congestive heart failure) Code(s): I50.9 - HEART FAILURE, UNSPECIFIED Qualifiers: Congestive heart failure type: diastolic Congestive heart failure chronicity: acute on chronic Qualified Code(s): I50.33 - Acute on chronic diastolic (congestive) heart failure (3) Elevated serum creatinine Code(s): R79.89 - OTHER SPECIFIED ABNORMAL FINDINGS OF BLOOD CHEMISTRY (4) Hepatic cirrhosis Code(s): K74.60 - UNSPECIFIED CIRRHOSIS OF LIVER Qualifiers: Hepatic cirrhosis type: unspecified hepatic cirrhosis Ascites presence : without ascites Qualified Code(s): K74.60 - Unspecified cirrhosis of liver (5) Rheumatic heart disease Code(s): I09.9 - RHEUMATIC HEART DISEASE, UNSPECIFIED (6) S/P AVR (aortic valve replacement) Code(s): Z95.2 - PRESENCE OF PROSTHETIC HEART VALVE (7) S/P MVR (mitral valve replacement) Code(s): Z95.2 - PRESENCE OF PROSTHETIC HEART VALVE (8) Shortness of breath Code(s): R06.02 - SHORTNESS OF BREATH Assessment/Plan (1) Anemia Code(s): D64.9 - ANEMIA, UNSPECIFIED Qualifiers: Anemia type: iron deficiency (2) CHF (congestive heart failure) Code(s): I50.9 - HEART FAILURE, UNSPECIFIED Qualifiers: Congestive heart failure type: diastolic Congestive heart failure chronicity: acute on chronic Qualified Code(s): I50.33 - Acute on chronic diastolic (congestive) heart failure (3) Elevated serum creatinine Code(s): R79.89 - OTHER SPECIFIED ABNORMAL FINDINGS OF BLOOD CHEMISTRY (4) Hepatic cirrhosis Assessment/Plan: HEPATOMA WITH + MALIGNANCY Code(s): K74.60 - UNSPECIFIED CIRRHOSIS OF LIVER Qualifiers: Hepatic cirrhosis type: unspecified hepatic cirrhosis Ascites presence : without ascites Qualified Code(s): K74.60 - Unspecified cirrhosis of liver (5) Rheumatic heart disease Code(s): I09.9 - RHEUMATIC HEART DISEASE, UNSPECIFIED (6) S/P AVR (aortic valve replacement) Code(s): Z95.2 - PRESENCE OF PROSTHETIC HEART VALVE (7) S/P MVR (mitral valve replacement) Code(s): Z95.2 - PRESENCE OF PROSTHETIC HEART VALVE (9) Shortness of breath Code(s): R06.02 - SHORTNESS OF BREATH Assessment/Plan PATIENT AND FAMILY HAVE AGREED ON CALVARY FOR FURTHER MEDICAL CARE NO INTERVENTIONS AT THIS TIME MONITOR LABS/INR ON COUMADIN 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
[2016-09-27] MEDS: WARFARIN NA 2 MG TABLET (UD) PO SCH (17:45)
--- NOTE | 2016-09-27 18:48 | PN ---
Progress Note, Physician History of Present Illness: Pt seen and examined and examined at bedside. She is now in the medical [place]. - Current Medication List Current Medications: Active Medications Acetaminophen (Tylenol -) 650 mg PO Q6H PRN PRN Reason: FEVER OR PAIN Albuterol Sulfate (Ventolin 0.083% Nebulizer Soln -) 1 amp NEB Q4H PRN PRN Reason: SHORT OF BREATH/WHEEZING Last Admin: 09/26/16 13:50 Dose: 1 amp Bacitracin (Bacitracin -) 1 applic TP BID [facility] Last Admin: 09/27/16 09:40 Dose: 1 applic Ferrous Sulfate (Feosol -) 325 mg PO BIDWM [facility] Last Admin: 09/27/16 17:45 Dose: 325 mg Furosemide (Lasix Injection -) 20 mg IVPUSH BID@0600,1400 [facility] Last Admin: 09/27/16 13:23 Dose: 20 mg Losartan Potassium (Cozaar -) 25 mg PO DAILY [facility] Last Admin: 09/27/16 09:39 Dose: 25 mg Morphine Sulfate (Morphine Injection -) 2 mg IVPUSH Q4H PRN PRN Reason: SHORTNESS OF BREATH Difluprednate ( Durezol) 0.05% Opth Drops - Pt's Own 1 each OD BID [facility] Last Admin: 09/27/16 09:49 Dose: 1 each Pantoprazole Sodium (Protonix -) 40 mg PO BID [facility] Last Admin: 09/27/16 09:40 Dose: 40 mg Spironolactone (Aldactone -) 25 mg PO DAILY [facility] Last Admin: 09/27/16 09:40 Dose: 25 mg Warfarin Sodium (Coumadin -) 2 mg PO DAILY@1800 [facility] Last Admin: 09/27/16 17:45 Dose: 2 mg Zolpidem Tartrate (Ambien -) 7.5 mg PO HS PRN PRN Reason: insomnia Last Admin: 09/26/16 22:40 Dose: 7.5 mg - Objective Vital Signs: Vital Signs Temperature 98 F 09/27/16 14:05 Pulse Rate 69 09/27/16 14:05 Respiratory Rate 18 09/27/16 14:05 Blood Pressure 108/46 09/27/16 14:05 O2 Sat by Pulse Oximetry (%) 97 09/27/16 10:00 Constitutional: Yes: Calm Eyes: Yes: Conjunctiva Clear HENT: Yes: Atraumatic Neck: Yes: Supple Cardiovascular: Yes: S1, S2 Respiratory: Yes: On Nasal O2 Gastrointestinal: Yes: Soft Genitourinary: Yes: Dawn Present Musculoskeletal: Yes: Muscle Weakness Edema: Yes (markedly improved) Edema: LLE: 1+, RLE: 1+ Neurological: Yes: Oriented Psychiatric: Yes: Oriented Labs: CBC, BMP 09/27/16 05:45 09/27/16 05:45 INR, PTT INR 2.48 (0.82-1.09) H 09/27/16 05:45 Problem List - Problems (1) Anemia Code(s): D64.9 - ANEMIA, UNSPECIFIED Qualifiers: Anemia type: iron deficiency (2) CHF (congestive heart failure) Code(s): I50.9 - HEART FAILURE, UNSPECIFIED Qualifiers: Congestive heart failure type: diastolic Congestive heart failure chronicity: acute on chronic Qualified Code(s): I50.33 - Acute on chronic diastolic (congestive) heart failure (3) Cholelithiasis Code(s): K80.20 - CALCULUS OF GALLBLADDER W/O CHOLECYSTITIS W/O OBSTRUCTION Qualifiers: Cholelithiasis location: gallbladder Cholecystitis presence: without cholecystitis Biliary obstruction: without biliary obstruction Qualified Code(s): K80.20 - Calculus of gallbladder without cholecystitis without obstruction (4) Hepatic cirrhosis Code(s): K74.60 - UNSPECIFIED CIRRHOSIS OF LIVER Qualifiers: Hepatic cirrhosis type: unspecified hepatic cirrhosis Ascites presence : without ascites Qualified Code(s): K74.60 - Unspecified cirrhosis of liver (5) S/P AVR (aortic valve replacement) Code(s): Z95.2 - PRESENCE OF PROSTHETIC HEART VALVE (6) S/P MVR (mitral valve replacement) Code(s): Z95.2 - PRESENCE OF PROSTHETIC HEART VALVE (8) Shortness of breath Code(s): R06.02 - SHORTNESS OF BREATH (9) RADHA (acute kidney injury) Code(s): N17.9 - ACUTE KIDNEY FAILURE, UNSPECIFIED Assessment/Plan Current Medications Generic Name Dose Route Start Last Admin Trade Name Freq PRN Reason Stop Dose Admin Acetaminophen 650 mg 09/26/16 07:48 Tylenol - PO Q6H PRN FEVER OR PAIN Albuterol Sulfate 1 amp 09/26/16 07:48 09/26/16 13:50 Ventolin 0.083% Nebulizer Soln - NEB 1 amp Q4H PRN Administration SHORT OF BREATH/WHEEZING Bacitracin 1 applic 09/26/16 10:00 09/27/16 09:40 Bacitracin - TP 1 applic BID [facility] Administration Ferrous Sulfate 325 mg 09/26/16 08:15 09/27/16 17:45 Feosol - PO 325 mg BIDWM [facility] Administration Furosemide 20 mg 09/26/16 14:00 09/27/16 13:23 Lasix Injection - IVPUSH 20 mg BID@0600,1400 [facility] Administration Losartan Potassium 25 mg 09/26/16 10:00 09/27/16 09:39 Cozaar - PO 25 mg DAILY [facility] Administration Morphine Sulfate 2 mg 09/26/16 07:48 Morphine Injection - IVPUSH Q4H PRN SHORTNESS OF BREATH Difluprednate ( 1 each 09/26/16 10:00 09/27/16 09:49 Durezol) 0.05% Opth OD 1 each Drops - Pt's Own BID [facility] Administration Pantoprazole Sodium 40 mg 09/26/16 22:00 09/27/16 09:40 Protonix - PO 40 mg BID [facility] Administration Spironolactone 25 mg 09/26/16 10:00 09/27/16 09:40 Aldactone - PO 25 mg DAILY [facility] Administration Warfarin Sodium 2 mg 09/26/16 18:00 09/27/16 17:45 Coumadin - PO 2 mg DAILY@1800 [facility] Administration Zolpidem Tartrate 7.5 mg 09/25/16 11:00 09/26/16 22:40 Ambien - PO 7.5 mg HS PRN Administration insomnia Impression 1. RADHA 2. aortic valve replacement 3. mitral valve replacement 4. tricuspid valve replacement 5. CHF 6. a-fib 7. anemia 8. hx GI bleed 9. HTN 10. liver cirrhosis 11. CKD Plan - cont diuretics - potassium is stable - creatinine is starting to rise - repeat labs in am - cardio input appreciated - d/c enma when possible - monitor bp - volume status is improving - monitor INR - will follow Dr Bo
[2016-09-27] MEDS: ZOLPIDEM TARTRATE 5 MG TABLET PO PRN (23:32)
[2016-09-28] MEDS: FUROSEMIDE 40 MG/4 ML INJECTABLE VIAL IVPUSH SCH ×2 (05:52→13:43)
[2016-09-28 08:05] LABS: EOSINOPHIL 11.4 % (0-4.5); MCHC 32.6 g/dl (32.0-36.0); NEUTROPHILS 66.7 % (42.8-82.8); PLATELET COUNT 178 K/MM3 (134-434); RDW 17.1 % (11.6-15.6); WHITE BLOOD COUNT 4.4 K/mm3 (4.0-10.0)
[2016-09-28 08:06] LABS: BASOPHIL 0.6 % (0-2.0)
[2016-09-28 08:11] LABS: INR 2.63 (0.82-1.09); PROTHROMBIN TIME (PATIENT) 29.5 SEC (9.98-11.88)
[2016-09-28 08:23] LABS: ALBUMIN 2.9 g/dl (3.4-5.0); CALCIUM 8.1 mg/dL (8.5-10.1)
[2016-09-28] MEDS: FERROUS SO4 325 MG TABLET (FP) PO SCH ×2 (08:25→17:20)
[2016-09-28 08:27] LABS: CREATININE 1.3 mg/dL (0.55-1.02); TOT PROT 5.8 g/dl (6.4-8.2)
[2016-09-28] MEDS ORDERED: PT OWN MED DRAWER 7, Y5N ONE (09:32)
[2016-09-28] MEDS: PANTOPRAZOLE 40 MG TABLET (FP) PO SCH ×2 (09:35→21:34)
[2016-09-28] MEDS: SPIRONOLACTONE 25 MG TABLET (FP) PO SCH (09:35)
[2016-09-28] MEDS: LOSARTAN POTASSIUM 50 MG TABLET (FP) PO SCH (09:35)
[2016-09-28] MEDS: DIFLUPREDNATE 0.05% OD SCH ×2 (09:39→21:34)
[2016-09-28] MEDS: OPTH OD SCH ×2 (09:39→21:34)
[2016-09-28] MEDS: BACITRACIN 30 GM TUBE TOPICAL OINTMENT TP SCH ×2 (09:39→21:34)
--- NOTE | 2016-09-28 09:56 | PN ---
Progress Note, Physician History of Present Illness: PULMONARY ALERT,FEELING BETTER,LESS DYSPNEIC,SITTING UP IN BED - Current Medication List Current Medications: Active Medications Acetaminophen (Tylenol -) 650 mg PO Q6H PRN PRN Reason: FEVER OR PAIN Albuterol Sulfate (Ventolin 0.083% Nebulizer Soln -) 1 amp NEB Q4H PRN PRN Reason: SHORT OF BREATH/WHEEZING Last Admin: 09/26/16 13:50 Dose: 1 amp Bacitracin (Bacitracin -) 1 applic TP BID [facility] Last Admin: 09/28/16 09:39 Dose: Not Given Ferrous Sulfate (Feosol -) 325 mg PO BIDWM [facility] Last Admin: 09/28/16 08:25 Dose: 325 mg Furosemide (Lasix Injection -) 20 mg IVPUSH BID@0600,1400 [facility] Last Admin: 09/28/16 05:52 Dose: 20 mg Losartan Potassium (Cozaar -) 25 mg PO DAILY [facility] Last Admin: 09/28/16 09:35 Dose: 25 mg Morphine Sulfate (Morphine Injection -) 2 mg IVPUSH Q4H PRN PRN Reason: SHORTNESS OF BREATH Difluprednate ( Durezol) 0.05% Opth Drops - Pt's Own 1 each OD BID [facility] Last Admin: 09/28/16 09:39 Dose: 1 each Pantoprazole Sodium (Protonix -) 40 mg PO BID [facility] Last Admin: 09/28/16 09:35 Dose: 40 mg Spironolactone (Aldactone -) 25 mg PO DAILY [facility] Last Admin: 09/28/16 09:35 Dose: 25 mg Warfarin Sodium (Coumadin -) 2 mg PO DAILY@1800 [facility] Last Admin: 09/27/16 17:45 Dose: 2 mg Zolpidem Tartrate (Ambien -) 7.5 mg PO HS PRN PRN Reason: insomnia Last Admin: 09/27/16 23:32 Dose: 7.5 mg - Objective Vital Signs: Vital Signs Temperature 98.0 F 09/28/16 09:29 Pulse Rate 69 09/28/16 09:29 Respiratory Rate 18 09/28/16 09:29 Blood Pressure 135/60 09/28/16 09:29 O2 Sat by Pulse Oximetry (%) 97 09/27/16 21:00 Constitutional: Yes: Calm, Thin Eyes: Yes: WNL HENT: Yes: WNL Neck: Yes: Supple Cardiovascular: Yes: Pulse Irregular, S1, S2 Respiratory: Yes: Rales (BILATERAL CRACKLES) Gastrointestinal: Yes: Normal Bowel Sounds, Soft Extremities: Yes: WNL Edema: Yes Edema: LLE: 1+, RLE: 1+ Labs: CBC, BMP 09/28/16 05:50 09/28/16 05:50 INR, PTT INR 2.63 (0.82-1.09) H 09/28/16 05:50 Problem List - Problems (1) RADHA (acute kidney injury) Code(s): N17.9 - ACUTE KIDNEY FAILURE, UNSPECIFIED (2) Anemia Code(s): D64.9 - ANEMIA, UNSPECIFIED Qualifiers: Anemia type: iron deficiency (3) CHF (congestive heart failure) Code(s): I50.9 - HEART FAILURE, UNSPECIFIED Qualifiers: Congestive heart failure type: diastolic Congestive heart failure chronicity: acute on chronic Qualified Code(s): I50.33 - Acute on chronic diastolic (congestive) heart failure (4) Cholelithiasis Code(s): K80.20 - CALCULUS OF GALLBLADDER W/O CHOLECYSTITIS W/O OBSTRUCTION Qualifiers: Cholelithiasis location: gallbladder Cholecystitis presence: without cholecystitis Biliary obstruction: without biliary obstruction Qualified Code(s): K80.20 - Calculus of gallbladder without cholecystitis without obstruction (5) Elevated serum creatinine Code(s): R79.89 - OTHER SPECIFIED ABNORMAL FINDINGS OF BLOOD CHEMISTRY (6) Hepatic cirrhosis Code(s): K74.60 - UNSPECIFIED CIRRHOSIS OF LIVER Qualifiers: Hepatic cirrhosis type: unspecified hepatic cirrhosis Ascites presence : without ascites Qualified Code(s): K74.60 - Unspecified cirrhosis of liver (7) Rheumatic heart disease Code(s): I09.9 - RHEUMATIC HEART DISEASE, UNSPECIFIED (8) S/P AVR (aortic valve replacement) Code(s): Z95.2 - PRESENCE OF PROSTHETIC HEART VALVE (9) S/P MVR (mitral valve replacement) Code(s): Z95.2 - PRESENCE OF PROSTHETIC HEART VALVE (11) Shortness of breath Code(s): R06.02 - SHORTNESS OF BREATH Assessment/Plan ASSESSMENT AND PLAN: Acute on Chronic LV Diastolic Heart Failure/Right Heart Failure Pulmonary HTN s/p AVR/MVR Atrial Fibrillation Liver Cirrhosis Likely HCC GI Bleed stable Anemia h/o AVM - continue lasix, aldactone - monitor urine output, creatinine - daily weights, I/Os - rate controlled - monitor H/H - continue protonix - continue anticoagulation - O2 to keep SpO2 >90% DR BOUCHER
--- NOTE | 2016-09-28 12:34 | PN ---
Progress Note, Physician History of Present Illness: Dyspnea, LE edema and ascites improving with continued diuresis and compression therapy, no further melena noted, Hgb stable post-transfusion. Comfortable eating lunch in chair. - Current Medication List Current Medications: Active Medications Acetaminophen (Tylenol -) 650 mg PO Q6H PRN PRN Reason: FEVER OR PAIN Albuterol Sulfate (Ventolin 0.083% Nebulizer Soln -) 1 amp NEB Q4H PRN PRN Reason: SHORT OF BREATH/WHEEZING Last Admin: 09/26/16 13:50 Dose: 1 amp Bacitracin (Bacitracin -) 1 applic TP BID [facility] Last Admin: 09/28/16 09:39 Dose: Not Given Ferrous Sulfate (Feosol -) 325 mg PO BIDWM [facility] Last Admin: 09/28/16 08:25 Dose: 325 mg Furosemide (Lasix Injection -) 20 mg IVPUSH BID@0600,1400 [facility] Last Admin: 09/28/16 05:52 Dose: 20 mg Losartan Potassium (Cozaar -) 25 mg PO DAILY [facility] Last Admin: 09/28/16 09:35 Dose: 25 mg Morphine Sulfate (Morphine Injection -) 2 mg IVPUSH Q4H PRN PRN Reason: SHORTNESS OF BREATH Difluprednate ( Durezol) 0.05% Opth Drops - Pt's Own 1 each OD BID [facility] Last Admin: 09/28/16 09:39 Dose: 1 each Pantoprazole Sodium (Protonix -) 40 mg PO BID [facility] Last Admin: 09/28/16 09:35 Dose: 40 mg Spironolactone (Aldactone -) 25 mg PO DAILY [facility] Last Admin: 09/28/16 09:35 Dose: 25 mg Warfarin Sodium (Coumadin -) 2 mg PO DAILY@1800 [facility] Last Admin: 09/27/16 17:45 Dose: 2 mg Zolpidem Tartrate (Ambien -) 7.5 mg PO HS PRN PRN Reason: insomnia Last Admin: 09/27/16 23:32 Dose: 7.5 mg - Objective Vital Signs: Vital Signs Temperature 98.0 F 09/28/16 09:29 Pulse Rate 69 09/28/16 09:29 Respiratory Rate 18 09/28/16 09:29 Blood Pressure 135/60 09/28/16 09:29 O2 Sat by Pulse Oximetry (%) 97 09/28/16 09:35 Constitutional: Yes: No Distress, Calm, Thin Neck: Yes: Supple Cardiovascular: Yes: Pulse Irregular, Murmur (2/6 SM), Other ([place] mechanical valve sounds) Respiratory: Yes: Regular, Diminished, On Nasal O2 Gastrointestinal: Yes: Normal Bowel Sounds, Soft Edema: Yes Edema: LLE: 1+, RLE: 1+ Labs: CBC, BMP 09/28/16 05:50 09/28/16 05:50 INR, PTT INR 2.63 (0.82-1.09) H 09/28/16 05:50 - ....Imaging EKG: Report Reviewed (Rate-controlled afib, PVC) Problem List - Problems (1) CHF (congestive heart failure) Code(s): I50.9 - HEART FAILURE, UNSPECIFIED Qualifiers: Congestive heart failure type: diastolic Congestive heart failure chronicity: acute on chronic Qualified Code(s): I50.33 - Acute on chronic diastolic (congestive) heart failure (2) Rheumatic heart disease Code(s): I09.9 - RHEUMATIC HEART DISEASE, UNSPECIFIED (3) S/P AVR (aortic valve replacement) Code(s): Z95.2 - PRESENCE OF PROSTHETIC HEART VALVE (4) S/P MVR (mitral valve replacement) Code(s): Z95.2 - PRESENCE OF PROSTHETIC HEART VALVE (6) Shortness of breath Code(s): R06.02 - SHORTNESS OF BREATH (7) Permanent atrial fibrillation Code(s): I48.2 - CHRONIC ATRIAL FIBRILLATION (8) Pulmonary hypertension Code(s): I27.2 - OTHER SECONDARY PULMONARY HYPERTENSION (9) Venous stasis dermatitis of both lower extremities Code(s): I83.11 - VARICOSE VEINS OF RIGHT LOWER EXTREMITY WITH INFLAMMATION I83.12 - VARICOSE VEINS OF LEFT LOWER EXTREMITY WITH INFLAMMATION (10) Cholelithiasis Code(s): K80.20 - CALCULUS OF GALLBLADDER W/O CHOLECYSTITIS W/O OBSTRUCTION Qualifiers: Cholelithiasis location: gallbladder Cholecystitis presence: without cholecystitis Biliary obstruction: without biliary obstruction Qualified Code(s): K80.20 - Calculus of gallbladder without cholecystitis without obstruction (11) Hepatic cirrhosis Code(s): K74.60 - UNSPECIFIED CIRRHOSIS OF LIVER Qualifiers: Hepatic cirrhosis type: unspecified hepatic cirrhosis Ascites presence : without ascites Qualified Code(s): K74.60 - Unspecified cirrhosis of liver (12) Hepatocellular carcinoma Code(s): C22.0 - LIVER CELL CARCINOMA Assessment/Plan 1. 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 Severe pulmonary HTN related to above 3. Post MVR and AVR (mechanical prosthesis) with history of rheumatic heart disease and therapeutic INR 4. Post TVR (Bio-prosthesis) 5. Permanent atrial fibrillation with slow ventricular response, asymptomatic 6. History of hepatic cirrhosis with likely HCC 7. Acute on CKD 8. Anemia with dropping H/H post transfusion, 2/2 GI bleed, h/o AVM PLAN: 1. Continue Lasix 20 IV bid and Aldactone 25 qd with caution and close monitoring of renal function and electrolytes, replete K 2. Continue Coumadin as per INR maintain 2.5-3.0 with close monitoring of H/H 3. Continue Cozaar 25 qd with caution and close monitoring of renal function 4. Monitor H/H and maintain Hg equal or > 8.0, protonix, endoscopy is risky 5. O2 to maintain saO2, support stockings, OOB to chair, DNR/DNI
[2016-09-28] MEDS ORDERED: POTASSIUM CHLORIDE TABS 20 MEQ TABLET.ER (FP) PO ONE (12:37)
--- NOTE | 2016-09-28 13:24 | PN ---
Progress Note, Physician Chief Complaint: HAS SOME SOB HAD D/W FAMILY AT BEDSIDE - Current Medication List Current Medications: Active Medications Acetaminophen (Tylenol -) 650 mg PO Q6H PRN PRN Reason: FEVER OR PAIN Albuterol Sulfate (Ventolin 0.083% Nebulizer Soln -) 1 amp NEB Q4H PRN PRN Reason: SHORT OF BREATH/WHEEZING Last Admin: 09/26/16 13:50 Dose: 1 amp Bacitracin (Bacitracin -) 1 applic TP BID [facility] Last Admin: 09/28/16 09:39 Dose: Not Given Ferrous Sulfate (Feosol -) 325 mg PO BIDWM [facility] Last Admin: 09/28/16 08:25 Dose: 325 mg Furosemide (Lasix Injection -) 20 mg IVPUSH BID@0600,1400 [facility] Last Admin: 09/28/16 05:52 Dose: 20 mg Losartan Potassium (Cozaar -) 25 mg PO DAILY [facility] Last Admin: 09/28/16 09:35 Dose: 25 mg Morphine Sulfate (Morphine Injection -) 2 mg IVPUSH Q4H PRN PRN Reason: SHORTNESS OF BREATH Difluprednate ( Durezol) 0.05% Opth Drops - Pt's Own 1 each OD BID [facility] Last Admin: 09/28/16 09:39 Dose: 1 each Pantoprazole Sodium (Protonix -) 40 mg PO BID [facility] Last Admin: 09/28/16 09:35 Dose: 40 mg Spironolactone (Aldactone -) 25 mg PO DAILY [facility] Last Admin: 09/28/16 09:35 Dose: 25 mg Warfarin Sodium (Coumadin -) 2 mg PO DAILY@1800 [facility] Last Admin: 09/27/16 17:45 Dose: 2 mg Zolpidem Tartrate (Ambien -) 7.5 mg PO HS PRN PRN Reason: insomnia Last Admin: 09/27/16 23:32 Dose: 7.5 mg - Objective Vital Signs: Vital Signs Temperature 98.0 F 09/28/16 09:29 Pulse Rate 69 09/28/16 09:29 Respiratory Rate 18 09/28/16 09:29 Blood Pressure 135/60 09/28/16 09:29 O2 Sat by Pulse Oximetry (%) 97 09/28/16 09:35 Constitutional: Yes: Calm Cardiovascular: Yes: S1, S2 Respiratory: Yes: CTA Bilaterally Gastrointestinal: Yes: Normal Bowel Sounds, Soft Edema: Yes Labs: CBC, BMP 09/28/16 05:50 09/28/16 05:50 INR, PTT INR 2.63 (0.82-1.09) H 09/28/16 05:50 Problem List - Problems (1) Anemia Code(s): D64.9 - ANEMIA, UNSPECIFIED Qualifiers: Anemia type: iron deficiency (2) CHF (congestive heart failure) Code(s): I50.9 - HEART FAILURE, UNSPECIFIED Qualifiers: Congestive heart failure type: diastolic Congestive heart failure chronicity: acute on chronic Qualified Code(s): I50.33 - Acute on chronic diastolic (congestive) heart failure (3) Elevated serum creatinine Code(s): R79.89 - OTHER SPECIFIED ABNORMAL FINDINGS OF BLOOD CHEMISTRY (4) Hepatic cirrhosis Code(s): K74.60 - UNSPECIFIED CIRRHOSIS OF LIVER Qualifiers: Hepatic cirrhosis type: unspecified hepatic cirrhosis Ascites presence : without ascites Qualified Code(s): K74.60 - Unspecified cirrhosis of liver (5) Rheumatic heart disease Code(s): I09.9 - RHEUMATIC HEART DISEASE, UNSPECIFIED (6) S/P AVR (aortic valve replacement) Code(s): Z95.2 - PRESENCE OF PROSTHETIC HEART VALVE (7) S/P MVR (mitral valve replacement) Code(s): Z95.2 - PRESENCE OF PROSTHETIC HEART VALVE (8) Shortness of breath Code(s): R06.02 - SHORTNESS OF BREATH Assessment/Plan (1) Anemia Code(s): D64.9 - ANEMIA, UNSPECIFIED Qualifiers: Anemia type: iron deficiency KEEP HGB >8 -> MONITOR (2) CHF (congestive heart failure) Code(s): I50.9 - HEART FAILURE, UNSPECIFIED Qualifiers: Congestive heart failure type: diastolic Congestive heart failure chronicity: acute on chronic Qualified Code(s): I50.33 - Acute on chronic diastolic (congestive) heart failure (3) Elevated serum creatinine Code(s): R79.89 - OTHER SPECIFIED ABNORMAL FINDINGS OF BLOOD CHEMISTRY (4) Hepatic cirrhosis Assessment/Plan: HEPATOMA WITH + MALIGNANCY HOME HOSPICE -> FAMILY WANTS TO D/W PCP ABOUT OPTIONS Code(s): K74.60 - UNSPECIFIED CIRRHOSIS OF LIVER Qualifiers: Hepatic cirrhosis type: unspecified hepatic cirrhosis Ascites presence : without ascites Qualified Code(s): K74.60 - Unspecified cirrhosis of liver (5) Rheumatic heart disease Code(s): I09.9 - RHEUMATIC HEART DISEASE, UNSPECIFIED (6) S/P AVR (aortic valve replacement) Code(s): Z95.2 - PRESENCE OF PROSTHETIC HEART VALVE INR THERAPEUTIC (7) S/P MVR (mitral valve replacement) Code(s): Z95.2 - PRESENCE OF PROSTHETIC HEART VALVE (9) Shortness of breath Code(s): R06.02 - SHORTNESS OF BREATH Assessment/Plan PATIENT AND FAMILY HAVE AGREED ON CALVARY FOR FURTHER MEDICAL CARE -> FAMILY WANT MEETING NO INTERVENTIONS AT THIS TIME [facility]
--- NOTE | 2016-09-28 15:17 | PN ---
Progress Note, Physician History of Present Illness: Pt seen and examined at bedside. She is awake and alert. - Current Medication List Current Medications: Active Medications Acetaminophen (Tylenol -) 650 mg PO Q6H PRN PRN Reason: FEVER OR PAIN Albuterol Sulfate (Ventolin 0.083% Nebulizer Soln -) 1 amp NEB Q4H PRN PRN Reason: SHORT OF BREATH/WHEEZING Last Admin: 09/26/16 13:50 Dose: 1 amp Bacitracin (Bacitracin -) 1 applic TP BID [facility] Last Admin: 09/28/16 09:39 Dose: Not Given Ferrous Sulfate (Feosol -) 325 mg PO BIDWM [facility] Last Admin: 09/28/16 08:25 Dose: 325 mg Furosemide (Lasix Injection -) 20 mg IVPUSH BID@0600,1400 [facility] Last Admin: 09/28/16 13:43 Dose: 20 mg Losartan Potassium (Cozaar -) 25 mg PO DAILY [facility] Last Admin: 09/28/16 09:35 Dose: 25 mg Morphine Sulfate (Morphine Injection -) 2 mg IVPUSH Q4H PRN PRN Reason: SHORTNESS OF BREATH Difluprednate ( Durezol) 0.05% Opth Drops - Pt's Own 1 each OD BID [facility] Last Admin: 09/28/16 09:39 Dose: 1 each Pantoprazole Sodium (Protonix -) 40 mg PO BID [facility] Last Admin: 09/28/16 09:35 Dose: 40 mg Spironolactone (Aldactone -) 25 mg PO DAILY [facility] Last Admin: 09/28/16 09:35 Dose: 25 mg Warfarin Sodium (Coumadin -) 2 mg PO DAILY@1800 [facility] Last Admin: 09/27/16 17:45 Dose: 2 mg Zolpidem Tartrate (Ambien -) 7.5 mg PO HS PRN PRN Reason: insomnia Last Admin: 09/27/16 23:32 Dose: 7.5 mg - Objective Vital Signs: Vital Signs Temperature 97.9 F 09/28/16 14:11 Pulse Rate 61 09/28/16 14:11 Respiratory Rate 18 09/28/16 14:11 Blood Pressure 121/77 09/28/16 14:11 O2 Sat by Pulse Oximetry (%) 97 09/28/16 09:35 Constitutional: Yes: Calm Eyes: Yes: Conjunctiva Clear HENT: Yes: Atraumatic Cardiovascular: Yes: S1, S2 Respiratory: Yes: On Nasal O2 Gastrointestinal: Yes: Soft Genitourinary: Yes: [place] Present Musculoskeletal: Yes: Muscle Weakness Edema: Yes Neurological: Yes: Oriented Psychiatric: Yes: Oriented Labs: CBC, BMP 09/28/16 05:50 09/28/16 05:50 INR, PTT INR 2.63 (0.82-1.09) H 09/28/16 05:50 Problem List - Problems (1) Anemia Code(s): D64.9 - ANEMIA, UNSPECIFIED Qualifiers: Anemia type: iron deficiency (2) CHF (congestive heart failure) Code(s): I50.9 - HEART FAILURE, UNSPECIFIED Qualifiers: Congestive heart failure type: diastolic Congestive heart failure chronicity: acute on chronic Qualified Code(s): I50.33 - Acute on chronic diastolic (congestive) heart failure (3) Cholelithiasis Code(s): K80.20 - CALCULUS OF GALLBLADDER W/O CHOLECYSTITIS W/O OBSTRUCTION Qualifiers: Cholelithiasis location: gallbladder Cholecystitis presence: without cholecystitis Biliary obstruction: without biliary obstruction Qualified Code(s): K80.20 - Calculus of gallbladder without cholecystitis without obstruction (4) Hepatic cirrhosis Code(s): K74.60 - UNSPECIFIED CIRRHOSIS OF LIVER Qualifiers: Hepatic cirrhosis type: unspecified hepatic cirrhosis Ascites presence : without ascites Qualified Code(s): K74.60 - Unspecified cirrhosis of liver (5) S/P AVR (aortic valve replacement) Code(s): Z95.2 - PRESENCE OF PROSTHETIC HEART VALVE (6) S/P MVR (mitral valve replacement) Code(s): Z95.2 - PRESENCE OF PROSTHETIC HEART VALVE (8) Shortness of breath Code(s): R06.02 - SHORTNESS OF BREATH (9) RADHA (acute kidney injury) Code(s): N17.9 - ACUTE KIDNEY FAILURE, UNSPECIFIED Assessment/Plan Current Medications Generic Name Dose Route Start Last Admin Trade Name Freq PRN Reason Stop Dose Admin Acetaminophen 650 mg 09/26/16 07:48 Tylenol - PO Q6H PRN FEVER OR PAIN Albuterol Sulfate 1 amp 09/26/16 07:48 09/26/16 13:50 Ventolin 0.083% Nebulizer Soln - NEB 1 amp Q4H PRN Administration SHORT OF BREATH/WHEEZING Bacitracin 1 applic 09/26/16 10:00 09/28/16 09:39 Bacitracin - TP Not Given BID ABEL[facility]O Ferrous Sulfate 325 mg 09/26/16 08:15 09/28/16 08:25 Feosol - PO 325 mg BIDWM [facility] Administration Furosemide 20 mg 09/26/16 14:00 09/28/16 13:43 Lasix Injection - IVPUSH 20 mg BID@0600,1400 [facility] Administration Losartan Potassium 25 mg 09/26/16 10:00 09/28/16 09:35 Cozaar - PO 25 mg DAILY [facility] Administration Morphine Sulfate 2 mg 09/26/16 07:48 Morphine Injection - IVPUSH Q4H PRN SHORTNESS OF BREATH Difluprednate ( 1 each 09/26/16 10:00 09/28/16 09:39 Durezol) 0.05% Opth OD 1 each Drops - Pt's Own BID [facility]O Administration Pantoprazole Sodium 40 mg 09/26/16 22:00 09/28/16 09:35 Protonix - PO 40 mg BID [facility] Administration Spironolactone 25 mg 09/26/16 10:00 09/28/16 09:35 Aldactone - PO 25 mg DAILY [facility] Administration Warfarin Sodium 2 mg 09/26/16 18:00 09/27/16 17:45 Coumadin - PO 2 mg DAILY@1800 [facility] Administration Zolpidem Tartrate 7.5 mg 09/25/16 11:00 09/27/16 23:32 Ambien - PO 7.5 mg HS PRN Administration insomnia Impression 1. RADHA 2. aortic valve replacement 3. mitral valve replacement 4. tricuspid valve replacement 5. CHF 6. a-fib 7. anemia 8. hx GI bleed 9. HTN 10. liver cirrhosis 11. CKD Plan - cont current meds - d/c [place] - voiding trial as pt is out of bed to chair - monitor bmp - cardio input appreciated - monitor bp - volume status is improving - monitor INR - discussed with family - will follow Dr Bo
[2016-09-28] MEDS: ALBUTEROL SO4 0.083% IH SOL 2.5 MG/3 ML VIAL.NEB. NEB PRN (16:59)
[2016-09-28] MEDS: WARFARIN NA 2 MG TABLET (UD) PO SCH (17:20)
[2016-09-28] MEDS: ZOLPIDEM TARTRATE 5 MG TABLET PO PRN (23:19)
[2016-09-29] MEDS: FUROSEMIDE 40 MG/4 ML INJECTABLE VIAL IVPUSH SCH ×2 (06:29→14:06)
[2016-09-29 08:02] LABS: BASOPHIL 1.1 % (0-2.0); EOSINOPHIL 6.4 % (0-4.5); MCH 29.3 pg (25.7-33.7); MCHC 32.9 g/dl (32.0-36.0); MEAN PLT VOLUME 8.8 fl (7.5-11.1); PLATELET COUNT 173 K/MM3 (134-434); WHITE BLOOD COUNT 4.9 K/mm3 (4.0-10.0)
[2016-09-29] MEDS: FERROUS SO4 325 MG TABLET (FP) PO SCH ×2 (08:17→17:46)
[2016-09-29 08:29] LABS: ALBUMIN 2.9 g/dl (3.4-5.0); CALCIUM 8.2 mg/dL (8.5-10.1); CREATININE 1.3 mg/dL (0.55-1.02)
[2016-09-29 08:30] LABS: BILIRUBIN,TOTAL 0.9 mg/dL (0.2-1.0); TOT PROT 5.8 g/dl (6.4-8.2)
[2016-09-29 08:50] LABS: INR 3.07 (0.82-1.09); PROTHROMBIN TIME (PATIENT) 34.5 SEC (9.98-11.88)
[2016-09-29] MEDS: LOSARTAN POTASSIUM 50 MG TABLET (FP) PO SCH (09:32)
[2016-09-29] MEDS: PANTOPRAZOLE 40 MG TABLET (FP) PO SCH ×2 (09:33→22:30)
[2016-09-29] MEDS: SPIRONOLACTONE 25 MG TABLET (FP) PO SCH (09:33)
[2016-09-29] MEDS: BACITRACIN 30 GM TUBE TOPICAL OINTMENT TP SCH ×2 (09:36→22:30)
[2016-09-29] MEDS: DIFLUPREDNATE 0.05% OD SCH ×2 (09:36→22:29)
[2016-09-29] MEDS: OPTH OD SCH ×2 (09:36→22:29)
--- NOTE | 2016-09-29 09:49 | PN ---
Progress Note, Physician History of Present Illness: pulmonary alert,oob-chair,dysneic - Current Medication List Current Medications: Active Medications Acetaminophen (Tylenol -) 650 mg PO Q6H PRN PRN Reason: FEVER OR PAIN Albuterol Sulfate (Ventolin 0.083% Nebulizer Soln -) 1 amp NEB Q4H PRN PRN Reason: SHORT OF BREATH/WHEEZING Last Admin: 09/28/16 16:59 Dose: 1 amp Bacitracin (Bacitracin -) 1 applic TP BID [facility] Last Admin: 09/29/16 09:36 Dose: 1 applic Ferrous Sulfate (Feosol -) 325 mg PO BIDWM [facility] Last Admin: 09/29/16 08:17 Dose: 325 mg Furosemide (Lasix Injection -) 20 mg IVPUSH BID@0600,1400 [facility] Last Admin: 09/29/16 06:29 Dose: 20 mg Losartan Potassium (Cozaar -) 25 mg PO DAILY [facility] Last Admin: 09/29/16 09:32 Dose: 25 mg Difluprednate ( Durezol) 0.05% Opth Drops - Pt's Own 1 each OD BID [facility] Last Admin: 09/29/16 09:36 Dose: 1 each Pantoprazole Sodium (Protonix -) 40 mg PO BID [facility] Last Admin: 09/29/16 09:33 Dose: 40 mg Spironolactone (Aldactone -) 25 mg PO DAILY [facility] Last Admin: 09/29/16 09:33 Dose: 25 mg Warfarin Sodium (Coumadin -) 2 mg PO DAILY@1800 [facility] Last Admin: 09/28/16 17:20 Dose: 2 mg Zolpidem Tartrate (Ambien -) 7.5 mg PO HS PRN PRN Reason: insomnia Last Admin: 09/28/16 23:19 Dose: 7.5 mg - Objective Vital Signs: Vital Signs Temperature 97.6 F 09/29/16 06:00 Pulse Rate 62 09/29/16 06:00 Respiratory Rate 18 09/29/16 06:00 Blood Pressure 118/50 09/29/16 06:00 O2 Sat by Pulse Oximetry (%) 97 09/28/16 21:00 Constitutional: Yes: Calm, Thin, Other (dyspneic at rest) Eyes: Yes: WNL HENT: Yes: WNL Neck: Yes: WNL Cardiovascular: Yes: Pulse Irregular, S1, S2 Respiratory: Yes: Rales (yeimy rales) Gastrointestinal: Yes: Normal Bowel Sounds, Soft Extremities: Yes: WNL Edema: Yes Labs: CBC, BMP 09/29/16 05:48 09/29/16 05:48 INR, PTT INR 3.07 (0.82-1.09) H 09/29/16 05:48 Problem List - Problems (1) RADHA (acute kidney injury) Code(s): N17.9 - ACUTE KIDNEY FAILURE, UNSPECIFIED (2) Anemia Code(s): D64.9 - ANEMIA, UNSPECIFIED Qualifiers: Anemia type: iron deficiency (3) CHF (congestive heart failure) Code(s): I50.9 - HEART FAILURE, UNSPECIFIED Qualifiers: Congestive heart failure type: diastolic Congestive heart failure chronicity: acute on chronic Qualified Code(s): I50.33 - Acute on chronic diastolic (congestive) heart failure (4) Cholelithiasis Code(s): K80.20 - CALCULUS OF GALLBLADDER W/O CHOLECYSTITIS W/O OBSTRUCTION Qualifiers: Cholelithiasis location: gallbladder Cholecystitis presence: without cholecystitis Biliary obstruction: without biliary obstruction Qualified Code(s): K80.20 - Calculus of gallbladder without cholecystitis without obstruction (5) Elevated serum creatinine Code(s): R79.89 - OTHER SPECIFIED ABNORMAL FINDINGS OF BLOOD CHEMISTRY (6) Hepatic cirrhosis Code(s): K74.60 - UNSPECIFIED CIRRHOSIS OF LIVER Qualifiers: Hepatic cirrhosis type: unspecified hepatic cirrhosis Ascites presence : without ascites Qualified Code(s): K74.60 - Unspecified cirrhosis of liver (7) Rheumatic heart disease Code(s): I09.9 - RHEUMATIC HEART DISEASE, UNSPECIFIED (8) S/P AVR (aortic valve replacement) Code(s): Z95.2 - PRESENCE OF PROSTHETIC HEART VALVE (9) S/P MVR (mitral valve replacement) Code(s): Z95.2 - PRESENCE OF PROSTHETIC HEART VALVE (11) Shortness of breath Code(s): R06.02 - SHORTNESS OF BREATH Assessment/Plan ASSESSMENT AND PLAN: Acute on Chronic LV Diastolic Heart Failure/Right Heart Failure Pulmonary HTN s/p AVR/MVR Atrial Fibrillation Liver Cirrhosis Likely HCC GI Bleed stable Anemia h/o AVM acute on chronic renal failure - continue lasix, aldactone - monitor urine output, creatinine - daily weights, I/Os - rate controlled - monitor H/H - continue protonix - continue anticoagulation - O2 to keep SpO2 >90% - transfuse DR BOUCHER
--- NOTE | 2016-09-29 10:40 | PN ---
Progress Note, Physician History of Present Illness: Stable dyspnea, LE edema and ascites improving with continued diuresis and compression therapy, no further melena noted, Hgb drop noted. Comfortable in chair. - Current Medication List Current Medications: Active Medications Acetaminophen (Tylenol -) 650 mg PO Q6H PRN PRN Reason: FEVER OR PAIN Albuterol Sulfate (Ventolin 0.083% Nebulizer Soln -) 1 amp NEB Q4H PRN PRN Reason: SHORT OF BREATH/WHEEZING Last Admin: 09/28/16 16:59 Dose: 1 amp Bacitracin (Bacitracin -) 1 applic TP BID [facility] Last Admin: 09/29/16 09:36 Dose: 1 applic Ferrous Sulfate (Feosol -) 325 mg PO BIDWM [facility] Last Admin: 09/29/16 08:17 Dose: 325 mg Furosemide (Lasix Injection -) 20 mg IVPUSH BID@0600,1400 [facility] Last Admin: 09/29/16 06:29 Dose: 20 mg Losartan Potassium (Cozaar -) 25 mg PO DAILY [facility] Last Admin: 09/29/16 09:32 Dose: 25 mg Difluprednate ( Durezol) 0.05% Opth Drops - Pt's Own 1 each OD BID [facility] Last Admin: 09/29/16 09:36 Dose: 1 each Pantoprazole Sodium (Protonix -) 40 mg PO BID [facility] Last Admin: 09/29/16 09:33 Dose: 40 mg Spironolactone (Aldactone -) 25 mg PO DAILY [facility] Last Admin: 09/29/16 09:33 Dose: 25 mg Warfarin Sodium (Coumadin -) 2 mg PO DAILY@1800 [facility] Last Admin: 09/28/16 17:20 Dose: 2 mg Zolpidem Tartrate (Ambien -) 7.5 mg PO HS PRN PRN Reason: insomnia Last Admin: 09/28/16 23:19 Dose: 7.5 mg - Objective Vital Signs: Vital Signs Temperature 97.6 F 09/29/16 06:00 Pulse Rate 62 09/29/16 06:00 Respiratory Rate 18 09/29/16 06:00 Blood Pressure 118/50 09/29/16 06:00 O2 Sat by Pulse Oximetry (%) 97 09/28/16 21:00 Constitutional: Yes: No Distress, Calm Neck: Yes: Supple Cardiovascular: Yes: Pulse Irregular, Murmur (2/6 SM), Other ([place] mechanical valve sounds) Respiratory: Yes: Regular, Diminished, On Nasal O2 Gastrointestinal: Yes: Normal Bowel Sounds, Soft Edema: Yes Edema: LLE: 1+, RLE: 1+ Labs: CBC, BMP 09/29/16 05:48 09/29/16 05:48 INR, PTT INR 3.07 (0.82-1.09) H 09/29/16 05:48 - ....Imaging EKG: Report Reviewed (Tele: Rate-controlled afib) Problem List - Problems (1) CHF (congestive heart failure) Code(s): I50.9 - HEART FAILURE, UNSPECIFIED Qualifiers: Congestive heart failure type: diastolic Congestive heart failure chronicity: acute on chronic Qualified Code(s): I50.33 - Acute on chronic diastolic (congestive) heart failure (2) Rheumatic heart disease Code(s): I09.9 - RHEUMATIC HEART DISEASE, UNSPECIFIED (3) S/P AVR (aortic valve replacement) Code(s): Z95.2 - PRESENCE OF PROSTHETIC HEART VALVE (4) S/P MVR (mitral valve replacement) Code(s): Z95.2 - PRESENCE OF PROSTHETIC HEART VALVE (6) Shortness of breath Code(s): R06.02 - SHORTNESS OF BREATH (7) Permanent atrial fibrillation Code(s): I48.2 - CHRONIC ATRIAL FIBRILLATION (8) Pulmonary hypertension Code(s): I27.2 - OTHER SECONDARY PULMONARY HYPERTENSION (9) Venous stasis dermatitis of both lower extremities Code(s): I83.11 - VARICOSE VEINS OF RIGHT LOWER EXTREMITY WITH INFLAMMATION I83.12 - VARICOSE VEINS OF LEFT LOWER EXTREMITY WITH INFLAMMATION (10) Cholelithiasis Code(s): K80.20 - CALCULUS OF GALLBLADDER W/O CHOLECYSTITIS W/O OBSTRUCTION Qualifiers: Cholelithiasis location: gallbladder Cholecystitis presence: without cholecystitis Biliary obstruction: without biliary obstruction Qualified Code(s): K80.20 - Calculus of gallbladder without cholecystitis without obstruction (11) Hepatic cirrhosis Code(s): K74.60 - UNSPECIFIED CIRRHOSIS OF LIVER Qualifiers: Hepatic cirrhosis type: unspecified hepatic cirrhosis Ascites presence : without ascites Qualified Code(s): K74.60 - Unspecified cirrhosis of liver (12) Hepatocellular carcinoma Code(s): C22.0 - LIVER CELL CARCINOMA (13) Angiodysplasia of gastrointestinal tract Code(s): K55.20 - ANGIODYSPLASIA OF COLON WITHOUT HEMORRHAGE Assessment/Plan 1. 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 Severe pulmonary HTN related to above 3. Post MVR and AVR (mechanical prosthesis) with history of rheumatic heart disease and therapeutic INR 4. Post TVR (Bio-prosthesis) 5. Permanent atrial fibrillation with slow ventricular response, asymptomatic 6. History of hepatic cirrhosis with likely HCC 7. Acute on CKD 8. Anemia with dropping H/H post transfusion, 2/2 GI bleed, h/o AVM PLAN: 1. Continue Lasix 20 IV bid and Aldactone 25 qd with caution and close monitoring of renal function and electrolytes 2. Continue Coumadin as per INR maintain 2.5-3.0 with close monitoring of H/H 3. Continue Cozaar 25 qd with caution and close monitoring of renal function 4. Transfuse to maintain Hg equal or > 8.0, protonix, endoscopy is risky 5. O2 to maintain saO2, support stockings, OOB to chair, DNR/DNI
--- NOTE | 2016-09-29 11:38 | PN ---
Progress Note, Physician Chief Complaint: HAD D/W PATIENT & SON - Current Medication List Current Medications: Active Medications Acetaminophen (Tylenol -) 650 mg PO Q6H PRN PRN Reason: FEVER OR PAIN Albuterol Sulfate (Ventolin 0.083% Nebulizer Soln -) 1 amp NEB Q4H PRN PRN Reason: SHORT OF BREATH/WHEEZING Last Admin: 09/28/16 16:59 Dose: 1 amp Bacitracin (Bacitracin -) 1 applic TP BID [facility] Last Admin: 09/29/16 09:36 Dose: 1 applic Ferrous Sulfate (Feosol -) 325 mg PO BIDWM [facility] Last Admin: 09/29/16 08:17 Dose: 325 mg Furosemide (Lasix Injection -) 20 mg IVPUSH BID@0600,1400 [facility] Last Admin: 09/29/16 06:29 Dose: 20 mg Losartan Potassium (Cozaar -) 25 mg PO DAILY [facility] Last Admin: 09/29/16 09:32 Dose: 25 mg Difluprednate ( Durezol) 0.05% Opth Drops - Pt's Own 1 each OD BID [facility] Last Admin: 09/29/16 09:36 Dose: 1 each Pantoprazole Sodium (Protonix -) 40 mg PO BID [facility] Last Admin: 09/29/16 09:33 Dose: 40 mg Spironolactone (Aldactone -) 25 mg PO DAILY [facility] Last Admin: 09/29/16 09:33 Dose: 25 mg Warfarin Sodium (Coumadin -) 2 mg PO DAILY@1800 [facility] Last Admin: 09/28/16 17:20 Dose: 2 mg Zolpidem Tartrate (Ambien -) 7.5 mg PO HS PRN PRN Reason: insomnia Last Admin: 09/28/16 23:19 Dose: 7.5 mg - Objective Vital Signs: Vital Signs Temperature 97.6 F 09/29/16 06:00 Pulse Rate 62 09/29/16 06:00 Respiratory Rate 18 09/29/16 06:00 Blood Pressure 118/50 09/29/16 06:00 O2 Sat by Pulse Oximetry (%) 97 09/28/16 21:00 Constitutional: Yes: Mild Distress (RESPIRATORY) Cardiovascular: Yes: S1, S2 Respiratory: Yes: CTA Bilaterally Gastrointestinal: Yes: Normal Bowel Sounds, Soft Edema: Yes Labs: CBC, BMP 09/29/16 05:48 09/29/16 05:48 INR, PTT INR 3.07 (0.82-1.09) H 09/29/16 05:48 Problem List - Problems (1) Anemia Code(s): D64.9 - ANEMIA, UNSPECIFIED Qualifiers: Anemia type: iron deficiency (2) CHF (congestive heart failure) Code(s): I50.9 - HEART FAILURE, UNSPECIFIED Qualifiers: Congestive heart failure type: diastolic Congestive heart failure chronicity: acute on chronic Qualified Code(s): I50.33 - Acute on chronic diastolic (congestive) heart failure (3) Elevated serum creatinine Code(s): R79.89 - OTHER SPECIFIED ABNORMAL FINDINGS OF BLOOD CHEMISTRY (4) Hepatic cirrhosis Code(s): K74.60 - UNSPECIFIED CIRRHOSIS OF LIVER Qualifiers: Hepatic cirrhosis type: unspecified hepatic cirrhosis Ascites presence : without ascites Qualified Code(s): K74.60 - Unspecified cirrhosis of liver (5) Rheumatic heart disease Code(s): I09.9 - RHEUMATIC HEART DISEASE, UNSPECIFIED (6) S/P AVR (aortic valve replacement) Code(s): Z95.2 - PRESENCE OF PROSTHETIC HEART VALVE (7) S/P MVR (mitral valve replacement) Code(s): Z95.2 - PRESENCE OF PROSTHETIC HEART VALVE (8) Shortness of breath Code(s): R06.02 - SHORTNESS OF BREATH Assessment/Plan (1) Anemia Code(s): D64.9 - ANEMIA, UNSPECIFIED Qualifiers: Anemia type: iron deficiency HGB 7.9 -> 7.4 NEED HGB >8 - pRBC x 1 (2) CHF (congestive heart failure) Code(s): I50.9 - HEART FAILURE, UNSPECIFIED Qualifiers: Congestive heart failure type: diastolic Congestive heart failure chronicity: acute on chronic Qualified Code(s): I50.33 - Acute on chronic diastolic (congestive) heart failure (3) Elevated serum creatinine Code(s): R79.89 - OTHER SPECIFIED ABNORMAL FINDINGS OF BLOOD CHEMISTRY (4) Hepatic cirrhosis Assessment/Plan: HEPATOMA WITH + MALIGNANCY Code(s): K74.60 - UNSPECIFIED CIRRHOSIS OF LIVER Qualifiers: Hepatic cirrhosis type: unspecified hepatic cirrhosis Ascites presence : without ascites Qualified Code(s): K74.60 - Unspecified cirrhosis of liver (5) Rheumatic heart disease Code(s): I09.9 - RHEUMATIC HEART DISEASE, UNSPECIFIED NEED INR 2.5 - 3 (6) S/P AVR (aortic valve replacement) Code(s): Z95.2 - PRESENCE OF PROSTHETIC HEART VALVE (7) S/P MVR (mitral valve replacement) Code(s): Z95.2 - PRESENCE OF PROSTHETIC HEART VALVE (9) Shortness of breath Code(s): R06.02 - SHORTNESS OF BREATH Assessment/Plan PATIENT AND FAMILY HAVE AGREED ON [facility] FOR FURTHER MEDICAL CARE NO INTERVENTIONS AT THIS TIME IV NHUNG BENDER
--- NOTE | 2016-09-29 15:53 | PN ---
Progress Note, Physician History of Present Illness: Pt seen and examined at bedside. She tolerated the voiding trial. She is getting a PRBC transfusion. - Current Medication List Current Medications: Active Medications Acetaminophen (Tylenol -) 650 mg PO Q6H PRN PRN Reason: FEVER OR PAIN Albuterol Sulfate (Ventolin 0.083% Nebulizer Soln -) 1 amp NEB Q4H PRN PRN Reason: SHORT OF BREATH/WHEEZING Last Admin: 09/28/16 16:59 Dose: 1 amp Bacitracin (Bacitracin -) 1 applic TP BID [facility] Last Admin: 09/29/16 09:36 Dose: 1 applic Ferrous Sulfate (Feosol -) 325 mg PO BIDWM [facility] Last Admin: 09/29/16 08:17 Dose: 325 mg Furosemide (Lasix Injection -) 20 mg IVPUSH BID@0600,1400 [facility] Last Admin: 09/29/16 14:06 Dose: 20 mg Losartan Potassium (Cozaar -) 25 mg PO DAILY [facility] Last Admin: 09/29/16 09:32 Dose: 25 mg Difluprednate ( Durezol) 0.05% Opth Drops - Pt's Own 1 each OD BID [facility] Last Admin: 09/29/16 09:36 Dose: 1 each Pantoprazole Sodium (Protonix -) 40 mg PO BID [facility] Last Admin: 09/29/16 09:33 Dose: 40 mg Spironolactone (Aldactone -) 25 mg PO DAILY [facility] Last Admin: 09/29/16 09:33 Dose: 25 mg Warfarin Sodium (Coumadin -) 2 mg PO DAILY@1800 [facility] Last Admin: 09/28/16 17:20 Dose: 2 mg - Objective Vital Signs: Vital Signs Temperature 98 F 09/29/16 14:00 Pulse Rate 62 09/29/16 14:00 Respiratory Rate 20 09/29/16 14:00 Blood Pressure 123/49 09/29/16 14:00 O2 Sat by Pulse Oximetry (%) 99 09/29/16 10:00 Constitutional: Yes: Calm Eyes: Yes: Conjunctiva Clear HENT: Yes: Atraumatic Cardiovascular: Yes: Murmur, S1, S2 Respiratory: Yes: On Nasal O2 Gastrointestinal: Yes: Soft Genitourinary: Yes: WNL Musculoskeletal: Yes: Muscle Weakness Edema: Yes Edema: LLE: 1+, RLE: 1+ Neurological: Yes: Oriented Psychiatric: Yes: Oriented Labs: CBC, BMP 09/29/16 05:48 09/29/16 05:48 INR, PTT INR 3.07 (0.82-1.09) H 09/29/16 05:48 Problem List - Problems (1) Anemia Code(s): D64.9 - ANEMIA, UNSPECIFIED Qualifiers: Anemia type: iron deficiency (2) CHF (congestive heart failure) Code(s): I50.9 - HEART FAILURE, UNSPECIFIED Qualifiers: Congestive heart failure type: diastolic Congestive heart failure chronicity: acute on chronic Qualified Code(s): I50.33 - Acute on chronic diastolic (congestive) heart failure (3) Cholelithiasis Code(s): K80.20 - CALCULUS OF GALLBLADDER W/O CHOLECYSTITIS W/O OBSTRUCTION Qualifiers: Cholelithiasis location: gallbladder Cholecystitis presence: without cholecystitis Biliary obstruction: without biliary obstruction Qualified Code(s): K80.20 - Calculus of gallbladder without cholecystitis without obstruction (4) Hepatic cirrhosis Code(s): K74.60 - UNSPECIFIED CIRRHOSIS OF LIVER Qualifiers: Hepatic cirrhosis type: unspecified hepatic cirrhosis Ascites presence : without ascites Qualified Code(s): K74.60 - Unspecified cirrhosis of liver (5) S/P AVR (aortic valve replacement) Code(s): Z95.2 - PRESENCE OF PROSTHETIC HEART VALVE (6) S/P MVR (mitral valve replacement) Code(s): Z95.2 - PRESENCE OF PROSTHETIC HEART VALVE (8) Shortness of breath Code(s): R06.02 - SHORTNESS OF BREATH (9) RADHA (acute kidney injury) Code(s): N17.9 - ACUTE KIDNEY FAILURE, UNSPECIFIED Assessment/Plan Current Medications Generic Name Dose Route Start Last Admin Trade Name Freq PRN Reason Stop Dose Admin Acetaminophen 650 mg 09/26/16 07:48 Tylenol - PO Q6H PRN FEVER OR PAIN Albuterol Sulfate 1 amp 09/26/16 07:48 09/28/16 16:59 Ventolin 0.083% Nebulizer Soln - NEB 1 amp Q4H PRN Administration SHORT OF BREATH/WHEEZING Bacitracin 1 applic 09/26/16 10:00 09/29/16 09:36 Bacitracin - TP 1 applic BID AB[facility]O Administration Ferrous Sulfate 325 mg 12/23/16 08:15 09/29/16 08:17 Feosol - PO 325 mg BIDWM [facility]O Administration Furosemide 20 mg 09/26/16 14:00 09/29/16 14:06 Lasix Injection - IVPUSH 20 mg BID@0600,1400 [facility] Administration Losartan Potassium 25 mg 09/26/16 10:00 09/29/16 09:32 Cozaar - PO 25 mg DAILY [facility] Administration Difluprednate ( 1 each 09/26/16 10:00 09/29/16 09:36 Durezol) 0.05% Opth OD 1 each Drops - Pt's Own BID [facility]O Administration Pantoprazole Sodium 40 mg 09/26/16 22:00 09/29/16 09:33 Protonix - PO 40 mg BID [facility] Administration Spironolactone 25 mg 09/26/16 10:00 09/29/16 09:33 Aldactone - PO 25 mg DAILY [facility] Administration Warfarin Sodium 2 mg 09/26/16 18:00 09/28/16 17:20 Coumadin - PO 2 mg DAILY@1800 [facility] Administration Impression 1. RADHA 2. aortic valve replacement 3. mitral valve replacement 4. tricuspid valve replacement 5. CHF 6. a-fib 7. anemia 8. hx GI bleed 9. HTN 10. liver cirrhosis 11. CKD Plan - cont with diuretics - case discussed with family - pt getting PRBC transfusion - repeat labs in am - cardio input appreciated - monitor bp - monitor INR - will follow Dr Bo
[2016-09-29] MEDS: WARFARIN NA 2 MG TABLET (UD) PO SCH (17:46)
[2016-09-29] MEDS: ALBUTEROL SO4 0.083% IH SOL 2.5 MG/3 ML VIAL.NEB. NEB PRN (18:44)
[2016-09-30] MEDS: FUROSEMIDE 40 MG/4 ML INJECTABLE VIAL IVPUSH SCH ×2 (06:18→13:47)
[2016-09-30 07:43] LABS: MCH 29.2 pg (25.7-33.7); MCHC 32.9 g/dl (32.0-36.0); MEAN CELL VOLUME 88.6 fl (80-96); MEAN PLT VOLUME 8.7 fl (7.5-11.1); PLATELET COUNT 174 K/MM3 (134-434); RDW 16.9 % (11.6-15.6); WHITE BLOOD COUNT 4.9 K/mm3 (4.0-10.0)
[2016-09-30] MEDS: FERROUS SO4 325 MG TABLET (FP) PO SCH ×2 (08:00→17:18)
[2016-09-30 08:20] LABS: INR 2.83 (0.82-1.09); PROTHROMBIN TIME (PATIENT) 31.8 SEC (9.98-11.88)
[2016-09-30 09:05] LABS: BILIRUBIN,TOTAL 1.1 mg/dL (0.2-1.0); CALCIUM 8.1 mg/dL (8.5-10.1); CREATININE 1.3 mg/dL (0.55-1.02)
[2016-09-30] MEDS: LOSARTAN POTASSIUM 50 MG TABLET (FP) PO SCH (09:33)
[2016-09-30] MEDS: OPTH OD SCH ×2 (09:34→21:56)
[2016-09-30] MEDS: DIFLUPREDNATE 0.05% OD SCH ×2 (09:34→21:56)
[2016-09-30] MEDS: PANTOPRAZOLE 40 MG TABLET (FP) PO SCH ×2 (09:34→21:56)
[2016-09-30] MEDS: BACITRACIN 30 GM TUBE TOPICAL OINTMENT TP SCH ×2 (09:35→21:56)
[2016-09-30] MEDS: SPIRONOLACTONE 25 MG TABLET (FP) PO SCH ×2 (09:35→21:56)
--- NOTE | 2016-09-30 10:27 | PN ---
Progress Note, Physician History of Present Illness: PULMONARY ALERT,OOB-CHAIR, LESS DYSPNEIC S/P TRANSFUSION - Current Medication List Current Medications: Active Medications Acetaminophen (Tylenol -) 650 mg PO Q6H PRN PRN Reason: FEVER OR PAIN Albuterol Sulfate (Ventolin 0.083% Nebulizer Soln -) 1 amp NEB Q4H PRN PRN Reason: SHORT OF BREATH/WHEEZING Last Admin: 09/29/16 18:44 Dose: 1 amp Bacitracin (Bacitracin -) 1 applic TP BID [facility] Last Admin: 09/30/16 09:35 Dose: 1 applic Ferrous Sulfate (Feosol -) 325 mg PO BIDWM [facility] Last Admin: 09/30/16 08:00 Dose: 325 mg Furosemide (Lasix Injection -) 20 mg IVPUSH BID@0600,1400 [facility] Last Admin: 09/30/16 06:18 Dose: 20 mg Losartan Potassium (Cozaar -) 25 mg PO DAILY [facility] Last Admin: 09/30/16 09:33 Dose: 25 mg Difluprednate ( Durezol) 0.05% Opth Drops - Pt's Own 1 each OD BID [facility] Last Admin: 09/30/16 09:34 Dose: 1 each Pantoprazole Sodium (Protonix -) 40 mg PO BID [facility] Last Admin: 09/30/16 09:34 Dose: 40 mg Spironolactone (Aldactone -) 25 mg PO DAILY [facility] Last Admin: 09/30/16 09:35 Dose: 25 mg Warfarin Sodium (Coumadin -) 2 mg PO DAILY@1800 [facility] Last Admin: 09/29/16 17:46 Dose: 2 mg Zolpidem Tartrate (Ambien -) 7.5 mg PO HS PRN - Objective Vital Signs: Vital Signs Temperature 97.6 F 09/30/16 06:00 Pulse Rate 84 09/30/16 06:00 Respiratory Rate 20 09/30/16 06:00 Blood Pressure 122/54 09/30/16 06:00 O2 Sat by Pulse Oximetry (%) 99 09/29/16 21:00 Constitutional: Yes: Calm, Thin Eyes: Yes: WNL HENT: Yes: WNL Neck: Yes: WNL Cardiovascular: Yes: Pulse Irregular, S1, S2 Respiratory: Yes: Rales Gastrointestinal: Yes: WNL Extremities: Yes: WNL Edema: Yes Labs: CBC, BMP 09/30/16 05:35 09/30/16 05:35 INR, PTT INR 2.83 (0.82-1.09) H 09/30/16 05:35 Problem List - Problems (1) RADHA (acute kidney injury) Code(s): N17.9 - ACUTE KIDNEY FAILURE, UNSPECIFIED (2) Anemia Code(s): D64.9 - ANEMIA, UNSPECIFIED Qualifiers: Anemia type: iron deficiency (3) CHF (congestive heart failure) Code(s): I50.9 - HEART FAILURE, UNSPECIFIED Qualifiers: Congestive heart failure type: diastolic Congestive heart failure chronicity: acute on chronic Qualified Code(s): I50.33 - Acute on chronic diastolic (congestive) heart failure (4) Cholelithiasis Code(s): K80.20 - CALCULUS OF GALLBLADDER W/O CHOLECYSTITIS W/O OBSTRUCTION Qualifiers: Cholelithiasis location: gallbladder Cholecystitis presence: without cholecystitis Biliary obstruction: without biliary obstruction Qualified Code(s): K80.20 - Calculus of gallbladder without cholecystitis without obstruction (5) Elevated serum creatinine Code(s): R79.89 - OTHER SPECIFIED ABNORMAL FINDINGS OF BLOOD CHEMISTRY (6) Hepatic cirrhosis Code(s): K74.60 - UNSPECIFIED CIRRHOSIS OF LIVER Qualifiers: Hepatic cirrhosis type: unspecified hepatic cirrhosis Ascites presence : without ascites Qualified Code(s): K74.60 - Unspecified cirrhosis of liver (7) Rheumatic heart disease Code(s): I09.9 - RHEUMATIC HEART DISEASE, UNSPECIFIED (8) S/P AVR (aortic valve replacement) Code(s): Z95.2 - PRESENCE OF PROSTHETIC HEART VALVE (9) S/P MVR (mitral valve replacement) Code(s): Z95.2 - PRESENCE OF PROSTHETIC HEART VALVE (11) Shortness of breath Code(s): R06.02 - SHORTNESS OF BREATH Assessment/Plan ASSESSMENT AND PLAN: 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
--- NOTE | 2016-09-30 10:45 | PN ---
Progress Note (short form) - Note Progress Note: Chief Complaint: Events noted, notes reviewed. Dyspnea and edema persists but improving, denies any chest pain History of Present Illness: Seen and examined on telemetry. Events noted, notes reviewed. Dyspnea and edema persists but improving, denies any chest pain Patient is post AVR and MVR (mechanical valves), post TVR and persistent AF that necessitates A/C utilization indefinitely Echocardiography dated 09/09/2016 revealed normal LV size and function with mild concentric LVH, severe bi-atrial enlargement, mechanical AVR, MVR, Bio- prosthetic TV, moderate TR with RVSP >60 mmHg Echocardiography dated 03/22/2015 revealed preserved LV function with mild concentric LVH, severe bi-atrial dilatation, mechanical MV and AV prosthesis, TV bio-prosthetic, moderate to severe MR, moderate TR with severe pulmonary HTN RVSP of 67 mHg - Current Medication List Current Medications Acetaminophen (Tylenol -) 650 mg PO Q6H PRN PRN Reason: FEVER OR PAIN Albuterol Sulfate (Ventolin 0.083% Nebulizer Soln -) 1 amp NEB Q4H PRN PRN Reason: SHORT OF BREATH/WHEEZING Last Admin: 09/29/16 18:44 Dose: 1 amp Bacitracin (Bacitracin -) 1 applic TP BID [facility] Last Admin: 09/30/16 09:35 Dose: 1 applic Ferrous Sulfate (Feosol -) 325 mg PO BIDWM [facility] Last Admin: 09/30/16 08:00 Dose: 325 mg Furosemide (Lasix Injection -) 20 mg IVPUSH BID@0600,1400 [facility] Last Admin: 09/30/16 06:18 Dose: 20 mg Losartan Potassium (Cozaar -) 25 mg PO DAILY [facility] Last Admin: 09/30/16 09:33 Dose: 25 mg Difluprednate ( Durezol) 0.05% Opth Drops - Pt's Own 1 each OD BID [facility] Last Admin: 09/30/16 09:34 Dose: 1 each Pantoprazole Sodium (Protonix -) 40 mg PO BID [facility] Last Admin: 09/30/16 09:34 Dose: 40 mg Spironolactone (Aldactone -) 25 mg PO DAILY [facility] Last Admin: 09/30/16 09:35 Dose: 25 mg Warfarin Sodium (Coumadin -) 2 mg PO DAILY@1800 [facility] Last Admin: 09/29/16 17:46 Dose: 2 mg Zolpidem Tartrate (Ambien -) 7.5 mg PO HS PRN Review of Systems Cardiovascular: As noted above Respiratory: denies: Cough or Sputum Production Gastrointestinal: denies: Nausea, Vomiting, Diarrhea, Constipation or Abdominal Discomfort Musculoskeletal: No Symptoms Reported Endocrine: No Symptoms Reported - Objective Vital Signs: Last Vital Signs Temp Pulse Resp BP Pulse Ox 97.6 F 84 20 122/54 99 09/30/16 06:00 09/30/16 06:00 09/30/16 06:00 09/30/16 06:00 09/29/16 21:00 Constitutional: No Distress, Calm Neck: Supple positive JVD No bruit Respiratory: Diminished Breath Sounds at the Bases Bilaterally with Basal Rales Cardiovascular: Mechanical Clicks Irregularly irregular Grade 2-3/6 Systolic Gastrointestinal: Soft Benign Normal Bowel Sounds Ext: Bilateral Edema with Bilateral Venous Stasis Changes Labs: CBC, BMP 09/30/16 05:35 09/30/16 05:35 INR, PTT INR 2.83 (0.82-1.09) H 09/30/16 05:35 Assessment/Plan ASSESSMENT: 1. 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 Severe pulmonary HTN related to above 3. Post MVR and AVR (mechanical prosthesis) with history of rheumatic heart disease 4. Post TVR (Bio-prosthesis) 5. Permanent atrial fibrillation with slow ventricular response, asymptomatic 6. History of hepatic cirrhosis 7. Acute on CKD 8. Anemia with dropping H/H post transfusion 9. Chronic liver disease/cirrhosis PLAN: 1. Continue IV Lasix and titrate dosage with caution and close monitoring of renal function 2. Continue Aldactone and titrate dosage with caution and close monitoring of renal function 3. Continue Coumadin as per INR maintain 2.5-3.5 with close monitoring of H/H, maintaining Hg equal or >8.0 4. Continue Cozaar with caution and close monitoring of renal function 5. Overall poor prognosis considering the above noted refractory LV/RV failure with co-morbidities Rose Godoy M.D.
[2016-09-30] MEDS: ALBUTEROL SO4 0.083% IH SOL 2.5 MG/3 ML VIAL.NEB. NEB PRN (11:04)
--- NOTE | 2016-09-30 12:26 | PN ---
Progress Note, Physician - Current Medication List Current Medications: Active Medications Acetaminophen (Tylenol -) 650 mg PO Q6H PRN PRN Reason: FEVER OR PAIN Albuterol Sulfate (Ventolin 0.083% Nebulizer Soln -) 1 amp NEB Q4H PRN PRN Reason: SHORT OF BREATH/WHEEZING Last Admin: 09/30/16 11:04 Dose: 1 amp Bacitracin (Bacitracin -) 1 applic TP BID [facility] Last Admin: 09/30/16 09:35 Dose: 1 applic Ferrous Sulfate (Feosol -) 325 mg PO BIDWM [facility] Last Admin: 09/30/16 08:00 Dose: 325 mg Furosemide (Lasix Injection -) 40 mg IVPUSH BID@0600,1400 [facility] Losartan Potassium (Cozaar -) 25 mg PO DAILY [facility] Last Admin: 09/30/16 09:33 Dose: 25 mg Difluprednate ( Durezol) 0.05% Opth Drops - Pt's Own 1 each OD BID [facility] Last Admin: 09/30/16 09:34 Dose: 1 each Pantoprazole Sodium (Protonix -) 40 mg PO BID [facility] Last Admin: 09/30/16 09:34 Dose: 40 mg Spironolactone (Aldactone -) 25 mg PO BID [facility] Warfarin Sodium (Coumadin -) 2 mg PO DAILY@1800 [facility] Last Admin: 09/29/16 17:46 Dose: 2 mg Zolpidem Tartrate (Ambien -) 7.5 mg PO HS PRN - Objective Vital Signs: Vital Signs Temperature 97 F L 09/30/16 10:00 Pulse Rate 76 09/30/16 10:00 Respiratory Rate 18 09/30/16 10:00 Blood Pressure 140/70 09/30/16 10:00 O2 Sat by Pulse Oximetry (%) 98 09/30/16 09:00 Labs: CBC, BMP 09/30/16 05:35 09/30/16 05:35 INR, PTT INR 2.83 (0.82-1.09) H 09/30/16 05:35 Problem List - Problems (1) Anemia Code(s): D64.9 - ANEMIA, UNSPECIFIED Qualifiers: Anemia type: iron deficiency (2) CHF (congestive heart failure) Code(s): I50.9 - HEART FAILURE, UNSPECIFIED Qualifiers: Congestive heart failure type: diastolic Congestive heart failure chronicity: acute on chronic Qualified Code(s): I50.33 - Acute on chronic diastolic (congestive) heart failure (3) Elevated serum creatinine Code(s): R79.89 - OTHER SPECIFIED ABNORMAL FINDINGS OF BLOOD CHEMISTRY (4) Hepatic cirrhosis Code(s): K74.60 - UNSPECIFIED CIRRHOSIS OF LIVER Qualifiers: Hepatic cirrhosis type: unspecified hepatic cirrhosis Ascites presence : without ascites Qualified Code(s): K74.60 - Unspecified cirrhosis of liver (5) Rheumatic heart disease Code(s): I09.9 - RHEUMATIC HEART DISEASE, UNSPECIFIED (6) S/P AVR (aortic valve replacement) Code(s): Z95.2 - PRESENCE OF PROSTHETIC HEART VALVE (7) S/P MVR (mitral valve replacement) Code(s): Z95.2 - PRESENCE OF PROSTHETIC HEART VALVE (8) Shortness of breath Code(s): R06.02 - SHORTNESS OF BREATH Assessment/Plan (1) Anemia Code(s): D64.9 - ANEMIA, UNSPECIFIED Qualifiers: Anemia type: iron deficiency HGB 8 NEED HGB >8 S/P pRBC (2) CHF (congestive heart failure) Code(s): I50.9 - HEART FAILURE, UNSPECIFIED Qualifiers: Congestive heart failure type: diastolic Congestive heart failure chronicity: acute on chronic Qualified Code(s): I50.33 - Acute on chronic diastolic (congestive) heart failure (3) Elevated serum creatinine Code(s): R79.89 - OTHER SPECIFIED ABNORMAL FINDINGS OF BLOOD CHEMISTRY (4) Hepatic cirrhosis Assessment/Plan: HEPATOMA WITH + MALIGNANCY Code(s): K74.60 - UNSPECIFIED CIRRHOSIS OF LIVER Qualifiers: Hepatic cirrhosis type: unspecified hepatic cirrhosis Ascites presence : without ascites Qualified Code(s): K74.60 - Unspecified cirrhosis of liver (5) Rheumatic heart disease Code(s): I09.9 - RHEUMATIC HEART DISEASE, UNSPECIFIED NEED INR 2.5 - 3 (6) S/P AVR (aortic valve replacement) Code(s): Z95.2 - PRESENCE OF PROSTHETIC HEART VALVE (7) S/P MVR (mitral valve replacement) Code(s): Z95.2 - PRESENCE OF PROSTHETIC HEART VALVE (9) Shortness of breath Code(s): R06.02 - SHORTNESS OF BREATH Assessment/Plan PATIENT AND FAMILY HAVE AGREED ON [facility] FOR FURTHER MEDICAL CARE NO INTERVENTIONS AT THIS TIME IV PROTONIX [facility]
--- NOTE | 2016-09-30 12:37 | PN ---
Progress Note, Physician History of Present Illness: Pt seen and examined at bedside. She is awake and alert. She is out of bed to chair. - Current Medication List Current Medications: Active Medications Acetaminophen (Tylenol -) 650 mg PO Q6H PRN PRN Reason: FEVER OR PAIN Albuterol Sulfate (Ventolin 0.083% Nebulizer Soln -) 1 amp NEB Q4H PRN PRN Reason: SHORT OF BREATH/WHEEZING Last Admin: 09/30/16 11:04 Dose: 1 amp Bacitracin (Bacitracin -) 1 applic TP BID [facility] Last Admin: 09/30/16 09:35 Dose: 1 applic Ferrous Sulfate (Feosol -) 325 mg PO BIDWM [facility] Last Admin: 09/30/16 08:00 Dose: 325 mg Furosemide (Lasix Injection -) 40 mg IVPUSH BID@0600,1400 [facility] Losartan Potassium (Cozaar -) 25 mg PO DAILY [facility] Last Admin: 09/30/16 09:33 Dose: 25 mg Difluprednate ( Durezol) 0.05% Opth Drops - Pt's Own 1 each OD BID [facility] Last Admin: 09/30/16 09:34 Dose: 1 each Pantoprazole Sodium (Protonix -) 40 mg PO BID [facility] Last Admin: 09/30/16 09:34 Dose: 40 mg Spironolactone (Aldactone -) 25 mg PO BID [facility] Warfarin Sodium (Coumadin -) 2 mg PO DAILY@1800 [facility] Last Admin: 09/29/16 17:46 Dose: 2 mg Zolpidem Tartrate (Ambien -) 7.5 mg PO HS PRN - Objective Vital Signs: Vital Signs Temperature 97 F L 09/30/16 10:00 Pulse Rate 76 09/30/16 10:00 Respiratory Rate 18 09/30/16 10:00 Blood Pressure 140/70 09/30/16 10:00 O2 Sat by Pulse Oximetry (%) 98 09/30/16 09:00 Constitutional: Yes: Calm Eyes: Yes: Conjunctiva Clear HENT: Yes: Atraumatic Cardiovascular: Yes: Murmur, S1, S2 Respiratory: Yes: Diminished, On Nasal O2 Gastrointestinal: Yes: Soft Genitourinary: Yes: WNL Musculoskeletal: Yes: Muscle Weakness Edema: Yes Neurological: Yes: Oriented Psychiatric: Yes: Oriented Labs: CBC, BMP 09/30/16 05:35 12/27/16 05:35 INR, PTT INR 2.83 (0.82-1.09) H 09/30/16 05:35 Problem List - Problems (1) Anemia Code(s): D64.9 - ANEMIA, UNSPECIFIED Qualifiers: Anemia type: iron deficiency (2) CHF (congestive heart failure) Code(s): I50.9 - HEART FAILURE, UNSPECIFIED Qualifiers: Congestive heart failure type: diastolic Congestive heart failure chronicity: acute on chronic Qualified Code(s): I50.33 - Acute on chronic diastolic (congestive) heart failure (3) Cholelithiasis Code(s): K80.20 - CALCULUS OF GALLBLADDER W/O CHOLECYSTITIS W/O OBSTRUCTION Qualifiers: Cholelithiasis location: gallbladder Cholecystitis presence: without cholecystitis Biliary obstruction: without biliary obstruction Qualified Code(s): K80.20 - Calculus of gallbladder without cholecystitis without obstruction (4) Hepatic cirrhosis Code(s): K74.60 - UNSPECIFIED CIRRHOSIS OF LIVER Qualifiers: Hepatic cirrhosis type: unspecified hepatic cirrhosis Ascites presence : without ascites Qualified Code(s): K74.60 - Unspecified cirrhosis of liver (5) S/P AVR (aortic valve replacement) Code(s): Z95.2 - PRESENCE OF PROSTHETIC HEART VALVE (6) S/P MVR (mitral valve replacement) Code(s): Z95.2 - PRESENCE OF PROSTHETIC HEART VALVE (8) Shortness of breath Code(s): R06.02 - SHORTNESS OF BREATH (9) RADHA (acute kidney injury) Code(s): N17.9 - ACUTE KIDNEY FAILURE, UNSPECIFIED Assessment/Plan Current Medications Generic Name Dose Route Start Last Admin Trade Name Freq PRN Reason Stop Dose Admin Acetaminophen 650 mg 09/26/16 07:48 Tylenol - PO Q6H PRN FEVER OR PAIN Albuterol Sulfate 1 amp 09/26/16 07:48 09/30/16 11:04 Ventolin 0.083% Nebulizer Soln - NEB 1 amp Q4H PRN Administration SHORT OF BREATH/WHEEZING Bacitracin 1 applic 09/26/16 10:00 09/30/16 09:35 Bacitracin - TP 1 applic BID [facility] Administration Ferrous Sulfate 325 mg 09/26/16 08:15 12/27/16 08:00 Feosol - PO 325 mg BIDWM [facility] Administration Furosemide 40 mg 09/30/16 10:47 Lasix Injection - IVPUSH BID@0600,1400 [facility] Losartan Potassium 25 mg 09/26/16 10:00 09/30/16 09:33 Cozaar - PO 25 mg DAILY [facility] Administration Difluprednate ( 1 each 09/26/16 10:00 09/30/16 09:34 Durezol) 0.05% Opth OD 1 each Drops - Pt's Own BID [facility] Administration Pantoprazole Sodium 40 mg 09/26/16 22:00 09/30/16 09:34 Protonix - PO 40 mg BID [facility] Administration Spironolactone 25 mg 09/30/16 22:00 Aldactone - PO BID [facility] Warfarin Sodium 2 mg 09/26/16 18:00 09/29/16 17:46 Coumadin - PO 2 mg DAILY@1800 [facility] Administration Zolpidem Tartrate 7.5 mg 09/29/16 22:27 Ambien - PO HS PRN Impression 1. RADHA 2. aortic valve replacement 3. mitral valve replacement 4. tricuspid valve replacement 5. CHF 6. a-fib 7. anemia 8. hx GI bleed 9. HTN 10. liver cirrhosis 11. CKD Plan - creatinine has not changed much - hg is improved - cont with diuretics - repeat labs in am - monitor bp - monitor INR - will follow Dr Bo
[2016-09-30] MEDS: WARFARIN NA 2 MG TABLET (UD) PO SCH (17:18)
[2016-09-30] MEDS ORDERED: PT OWN MED DRAWER 7, Y5N ONE (17:49)
[2016-09-30] MEDS: ZOLPIDEM TARTRATE 5 MG TABLET PO PRN (21:56)
[2016-10-01] MEDS: ALBUTEROL SO4 0.083% IH SOL 2.5 MG/3 ML VIAL.NEB. NEB PRN (06:10)
[2016-10-01] MEDS: FUROSEMIDE 40 MG/4 ML INJECTABLE VIAL IVPUSH SCH ×2 (06:16→13:33)
[2016-10-01 07:56] LABS: BASOPHIL 1.1 % (0-2.0); EOSINOPHIL 6.5 % (0-4.5); MCH 29.2 pg (25.7-33.7); MCHC 32.7 g/dl (32.0-36.0); MEAN CELL VOLUME 89.4 fl (80-96); MEAN PLT VOLUME 9.1 fl (7.5-11.1); NEUTROPHILS 67.3 % (42.8-82.8); PLATELET COUNT 196 K/MM3 (134-434); RDW 16.5 % (11.6-15.6); WHITE BLOOD COUNT 5.6 K/mm3 (4.0-10.0)
[2016-10-01] MEDS: FERROUS SO4 325 MG TABLET (FP) PO SCH ×2 (08:00→16:58)
[2016-10-01 08:16] LABS: CALCIUM 8.5 mg/dL (8.5-10.1); CREATININE 1.4 mg/dL (0.55-1.02)
[2016-10-01 08:38] LABS: INR 3.27 (0.82-1.09); PROTHROMBIN TIME (PATIENT) 36.9 SEC (9.98-11.88)
[2016-10-01] MEDS: BACITRACIN 30 GM TUBE TOPICAL OINTMENT TP SCH ×2 (09:22→21:59)
[2016-10-01] MEDS: LOSARTAN POTASSIUM 50 MG TABLET (FP) PO SCH (09:22)
[2016-10-01] MEDS: SPIRONOLACTONE 25 MG TABLET (FP) PO SCH ×2 (09:22→21:59)
[2016-10-01] MEDS: PANTOPRAZOLE 40 MG TABLET (FP) PO SCH ×2 (09:23→21:59)
[2016-10-01] MEDS: OPTH OD SCH ×2 (09:23→21:59)
[2016-10-01] MEDS: DIFLUPREDNATE 0.05% OD SCH ×2 (09:23→21:59)
--- NOTE | 2016-10-01 10:50 | PN ---
Progress Note, Physician History of Present Illness: PULMONARY ALERT,LESS DYSPNEIC,AMBULATING with PT - Current Medication List Current Medications: Active Medications Acetaminophen (Tylenol -) 650 mg PO Q6H PRN PRN Reason: FEVER OR PAIN Bacitracin (Bacitracin -) 1 applic TP BID [facility] Last Admin: 10/01/16 09:22 Dose: 1 applic Ferrous Sulfate (Feosol -) 325 mg PO BIDWM [facility] Last Admin: 10/01/16 08:00 Dose: 325 mg Furosemide (Lasix Injection -) 40 mg IVPUSH BID@0600,1400 [facility] Last Admin: 10/01/16 06:16 Dose: 40 mg Losartan Potassium (Cozaar -) 25 mg PO DAILY [facility] Last Admin: 10/01/16 09:22 Dose: 25 mg Difluprednate ( Durezol) 0.05% Opth Drops - Pt's Own 1 each OD BID [facility] Last Admin: 10/01/16 09:23 Dose: 1 each Pantoprazole Sodium (Protonix -) 40 mg PO BID [facility] Last Admin: 10/01/16 09:23 Dose: 40 mg Spironolactone (Aldactone -) 25 mg PO BID [facility] Last Admin: 10/01/16 09:22 Dose: 25 mg Warfarin Sodium (Coumadin -) 2 mg PO DAILY@1800 [facility] Last Admin: 09/30/16 17:18 Dose: 2 mg Zolpidem Tartrate (Ambien -) 7.5 mg PO HS PRN Last Admin: 09/30/16 21:56 Dose: 7.5 mg - Objective Vital Signs: Vital Signs Temperature 98.4 F 10/01/16 06:00 Pulse Rate 98 H 10/01/16 06:00 Respiratory Rate 20 10/01/16 06:00 Blood Pressure 132/61 10/01/16 06:00 O2 Sat by Pulse Oximetry (%) 97 09/30/16 21:00 Constitutional: Yes: Calm, Thin Eyes: Yes: WNL HENT: Yes: WNL, Tonsillar Exudate Cardiovascular: Yes: Pulse Irregular, S1, S2 Respiratory: Yes: Rales (BILATERAL RALES) Gastrointestinal: Yes: Normal Bowel Sounds, Soft Extremities: Yes: WNL Edema: Yes Labs: CBC, BMP 10/01/16 05:35 10/01/16 05:35 INR, PTT INR 3.27 (0.82-1.09) H 10/01/16 05:35 Problem List - Problems (1) RADHA (acute kidney injury) Code(s): N17.9 - ACUTE KIDNEY FAILURE, UNSPECIFIED (2) Anemia Code(s): D64.9 - ANEMIA, UNSPECIFIED Qualifiers: Anemia type: iron deficiency (3) CHF (congestive heart failure) Code(s): I50.9 - HEART FAILURE, UNSPECIFIED Qualifiers: Congestive heart failure type: diastolic Congestive heart failure chronicity: acute on chronic Qualified Code(s): I50.33 - Acute on chronic diastolic (congestive) heart failure (4) Cholelithiasis Code(s): K80.20 - CALCULUS OF GALLBLADDER W/O CHOLECYSTITIS W/O OBSTRUCTION Qualifiers: Cholelithiasis location: gallbladder Cholecystitis presence: without cholecystitis Biliary obstruction: without biliary obstruction Qualified Code(s): K80.20 - Calculus of gallbladder without cholecystitis without obstruction (5) Elevated serum creatinine Code(s): R79.89 - OTHER SPECIFIED ABNORMAL FINDINGS OF BLOOD CHEMISTRY (6) Hepatic cirrhosis Code(s): K74.60 - UNSPECIFIED CIRRHOSIS OF LIVER Qualifiers: Hepatic cirrhosis type: unspecified hepatic cirrhosis Ascites presence : without ascites Qualified Code(s): K74.60 - Unspecified cirrhosis of liver (7) Rheumatic heart disease Code(s): I09.9 - RHEUMATIC HEART DISEASE, UNSPECIFIED (8) S/P AVR (aortic valve replacement) Code(s): Z95.2 - PRESENCE OF PROSTHETIC HEART VALVE (9) S/P MVR (mitral valve replacement) Code(s): Z95.2 - PRESENCE OF PROSTHETIC HEART VALVE (11) Shortness of breath Code(s): R06.02 - SHORTNESS OF BREATH Assessment/Plan ASSESSMENT AND PLAN: 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
--- NOTE | 2016-10-01 11:17 | PN ---
Progress Note, Physician - Current Medication List Current Medications: Active Medications Acetaminophen (Tylenol -) 650 mg PO Q6H PRN PRN Reason: FEVER OR PAIN Bacitracin (Bacitracin -) 1 applic TP BID [facility] Last Admin: 10/01/16 09:22 Dose: 1 applic Ferrous Sulfate (Feosol -) 325 mg PO BIDWM [facility] Last Admin: 10/01/16 08:00 Dose: 325 mg Furosemide (Lasix Injection -) 40 mg IVPUSH BID@0600,1400 [facility] Last Admin: 10/01/16 06:16 Dose: 40 mg Losartan Potassium (Cozaar -) 25 mg PO DAILY [facility] Last Admin: 10/01/16 09:22 Dose: 25 mg Difluprednate ( Durezol) 0.05% Opth Drops - Pt's Own 1 each OD BID [facility] Last Admin: 10/01/16 09:23 Dose: 1 each Pantoprazole Sodium (Protonix -) 40 mg PO BID [facility] Last Admin: 10/01/16 09:23 Dose: 40 mg Spironolactone (Aldactone -) 25 mg PO BID [facility] Last Admin: 10/01/16 09:22 Dose: 25 mg Warfarin Sodium (Coumadin -) 2 mg PO DAILY@1800 [facility] Last Admin: 09/30/16 17:18 Dose: 2 mg Zolpidem Tartrate (Ambien -) 7.5 mg PO HS PRN Last Admin: 09/30/16 21:56 Dose: 7.5 mg - Objective Vital Signs: Vital Signs Temperature 98.4 F 10/01/16 06:00 Pulse Rate 98 H 10/01/16 06:00 Respiratory Rate 20 10/01/16 06:00 Blood Pressure 132/61 10/01/16 06:00 O2 Sat by Pulse Oximetry (%) 97 09/30/16 21:00 Cardiovascular: Yes: S1, S2, Other (hr 84) Respiratory: Yes: Diminished Gastrointestinal: Yes: Normal Bowel Sounds, Soft Edema: Yes Labs: CBC, BMP 10/01/16 05:35 10/01/16 05:35 INR, PTT INR 3.27 (0.82-1.09) H 10/01/16 05:35 Problem List - Problems (1) Anemia Code(s): D64.9 - ANEMIA, UNSPECIFIED Qualifiers: Anemia type: iron deficiency (2) CHF (congestive heart failure) Code(s): I50.9 - HEART FAILURE, UNSPECIFIED Qualifiers: Congestive heart failure type: diastolic Congestive heart failure chronicity: acute on chronic Qualified Code(s): I50.33 - Acute on chronic diastolic (congestive) heart failure (3) Elevated serum creatinine Code(s): R79.89 - OTHER SPECIFIED ABNORMAL FINDINGS OF BLOOD CHEMISTRY (4) Hepatic cirrhosis Code(s): K74.60 - UNSPECIFIED CIRRHOSIS OF LIVER Qualifiers: Hepatic cirrhosis type: unspecified hepatic cirrhosis Ascites presence : without ascites Qualified Code(s): K74.60 - Unspecified cirrhosis of liver (5) Rheumatic heart disease Code(s): I09.9 - RHEUMATIC HEART DISEASE, UNSPECIFIED (6) S/P AVR (aortic valve replacement) Code(s): Z95.2 - PRESENCE OF PROSTHETIC HEART VALVE (7) S/P MVR (mitral valve replacement) Code(s): Z95.2 - PRESENCE OF PROSTHETIC HEART VALVE (8) Shortness of breath Code(s): R06.02 - SHORTNESS OF BREATH Assessment/Plan (1) Anemia Code(s): D64.9 - ANEMIA, UNSPECIFIED Qualifiers: Anemia type: iron deficiency HGB 8 NEED HGB >8 S/P pRBC (2) CHF (congestive heart failure) Code(s): I50.9 - HEART FAILURE, UNSPECIFIED Qualifiers: Congestive heart failure type: diastolic Congestive heart failure chronicity: acute on chronic Qualified Code(s): I50.33 - Acute on chronic diastolic (congestive) heart failure (3) Elevated serum creatinine Code(s): R79.89 - OTHER SPECIFIED ABNORMAL FINDINGS OF BLOOD CHEMISTRY (4) Hepatic cirrhosis Assessment/Plan: HEPATOMA WITH + MALIGNANCY Code(s): K74.60 - UNSPECIFIED CIRRHOSIS OF LIVER Qualifiers: Hepatic cirrhosis type: unspecified hepatic cirrhosis Ascites presence : without ascites Qualified Code(s): K74.60 - Unspecified cirrhosis of liver (5) Rheumatic heart disease Code(s): I09.9 - RHEUMATIC HEART DISEASE, UNSPECIFIED NEED INR 2.5 - 3 (6) S/P AVR (aortic valve replacement) Code(s): Z95.2 - PRESENCE OF PROSTHETIC HEART VALVE (7) S/P MVR (mitral valve replacement) Code(s): Z95.2 - PRESENCE OF PROSTHETIC HEART VALVE (9) Shortness of breath Code(s): R06.02 - SHORTNESS OF BREATH Assessment/Plan PATIENT AND FAMILY HAVE AGREED ON [facility] NO INTERVENTIONS AT THIS TIME IV PROTONIX FAMILY STILL WANTS TO D/W PCP [employer]
--- NOTE | 2016-10-01 12:24 | PN ---
Progress Note, Physician History of Present Illness: Pt seen and examined at bedside. She is awake and alert. She gets SOB with minimal activity. - Current Medication List Current Medications: Active Medications Acetaminophen (Tylenol -) 650 mg PO Q6H PRN PRN Reason: FEVER OR PAIN Bacitracin (Bacitracin -) 1 applic TP BID [facility] Last Admin: 10/01/16 09:22 Dose: 1 applic Ferrous Sulfate (Feosol -) 325 mg PO BIDWM [facility] Last Admin: 10/01/16 08:00 Dose: 325 mg Furosemide (Lasix Injection -) 40 mg IVPUSH BID@0600,1400 [facility] Last Admin: 10/01/16 06:16 Dose: 40 mg Losartan Potassium (Cozaar -) 25 mg PO DAILY [facility] Last Admin: 10/01/16 09:22 Dose: 25 mg Difluprednate ( Durezol) 0.05% Opth Drops - Pt's Own 1 each OD BID [facility] Last Admin: 10/01/16 09:23 Dose: 1 each Pantoprazole Sodium (Protonix -) 40 mg PO BID [facility] Last Admin: 10/01/16 09:23 Dose: 40 mg Spironolactone (Aldactone -) 25 mg PO BID [facility] Last Admin: 10/01/16 09:22 Dose: 25 mg Warfarin Sodium (Coumadin -) 2 mg PO DAILY@1800 [facility] Last Admin: 09/30/16 17:18 Dose: 2 mg Zolpidem Tartrate (Ambien -) 7.5 mg PO HS PRN Last Admin: 09/30/16 21:56 Dose: 7.5 mg - Objective Vital Signs: Vital Signs Temperature 98 F 10/01/16 10:00 Pulse Rate 85 10/01/16 10:00 Respiratory Rate 20 10/01/16 10:00 Blood Pressure 114/50 10/01/16 10:00 O2 Sat by Pulse Oximetry (%) 94 L 10/01/16 09:00 Constitutional: Yes: Calm Eyes: Yes: Conjunctiva Clear HENT: Yes: Atraumatic Neck: Yes: Supple Cardiovascular: Yes: Murmur, S1, S2 Respiratory: Yes: Diminished, On Nasal O2 Gastrointestinal: Yes: Soft Genitourinary: Yes: WNL Musculoskeletal: Yes: Muscle Weakness Edema: Yes Edema: LLE: 1+, RLE: 1+ Neurological: Yes: Oriented Psychiatric: Yes: Oriented Labs: CBC, BMP 10/01/16 05:35 10/01/16 05:35 INR, PTT INR 3.27 (0.82-1.09) H 10/01/16 05:35 Problem List - Problems (1) Anemia Code(s): D64.9 - ANEMIA, UNSPECIFIED Qualifiers: Anemia type: iron deficiency (2) CHF (congestive heart failure) Code(s): I50.9 - HEART FAILURE, UNSPECIFIED Qualifiers: Congestive heart failure type: diastolic Congestive heart failure chronicity: acute on chronic Qualified Code(s): I50.33 - Acute on chronic diastolic (congestive) heart failure (3) Cholelithiasis Code(s): K80.20 - CALCULUS OF GALLBLADDER W/O CHOLECYSTITIS W/O OBSTRUCTION Qualifiers: Cholelithiasis location: gallbladder Cholecystitis presence: without cholecystitis Biliary obstruction: without biliary obstruction Qualified Code(s): K80.20 - Calculus of gallbladder without cholecystitis without obstruction (4) Hepatic cirrhosis Code(s): K74.60 - UNSPECIFIED CIRRHOSIS OF LIVER Qualifiers: Hepatic cirrhosis type: unspecified hepatic cirrhosis Ascites presence : without ascites Qualified Code(s): K74.60 - Unspecified cirrhosis of liver (5) S/P AVR (aortic valve replacement) Code(s): Z95.2 - PRESENCE OF PROSTHETIC HEART VALVE (6) S/P MVR (mitral valve replacement) Code(s): Z95.2 - PRESENCE OF PROSTHETIC HEART VALVE (8) Shortness of breath Code(s): R06.02 - SHORTNESS OF BREATH (9) RADHA (acute kidney injury) Code(s): N17.9 - ACUTE KIDNEY FAILURE, UNSPECIFIED Assessment/Plan Current Medications Generic Name Dose Route Start Last Admin Trade Name Freq PRN Reason Stop Dose Admin Acetaminophen 650 mg 09/26/16 07:48 Tylenol - PO Q6H PRN FEVER OR PAIN Bacitracin 1 applic 09/26/16 10:00 10/01/16 09:22 Bacitracin - TP 1 applic BID [facility] Administration Ferrous Sulfate 325 mg 09/26/16 08:15 10/01/16 08:00 Feosol - PO 325 mg BIDWM [facility] Administration Furosemide 40 mg 09/30/16 10:47 10/01/16 06:16 Lasix Injection - IVPUSH 40 mg BID@0600,1400 [facility] Administration Losartan Potassium 25 mg 09/26/16 10:00 10/01/16 09:22 Cozaar - PO 25 mg DAILY [facility] Administration Difluprednate ( 1 each 09/26/16 10:00 10/01/16 09:23 Durezol) 0.05% Opth OD 1 each Drops - Pt's Own BID [facility] Administration Pantoprazole Sodium 40 mg 09/26/16 22:00 10/01/16 09:23 Protonix - PO 40 mg BID [facility] Administration Spironolactone 25 mg 09/30/16 22:00 10/01/16 09:22 Aldactone - PO 25 mg BID [facility] Administration Warfarin Sodium 2 mg 09/26/16 18:00 09/30/16 17:18 Coumadin - PO 2 mg DAILY@1800 [facility] Administration Zolpidem Tartrate 7.5 mg 09/29/16 22:27 09/30/16 21:56 Ambien - PO 7.5 mg HS PRN Administration Impression 1. RADHA 2. aortic valve replacement 3. mitral valve replacement 4. tricuspid valve replacement 5. CHF 6. a-fib 7. anemia 8. hx GI bleed 9. HTN 10. liver cirrhosis 11. CKD Plan - diuretics with close monitoring of renal function - pt remains short of breath with minimal activity - monitor daily weights - monitor Hg - repeat labs in am - monitor bp - monitor INR - will follow Dr Bo
--- NOTE | 2016-10-01 16:37 | PN ---
Progress Note, Physician History of Present Illness: Stable dyspnea, LE edema and ascites improving with continued diuresis and compression therapy, no further melena noted. Received transfusion, participating in PT. - Current Medication List Current Medications: Active Medications Acetaminophen (Tylenol -) 650 mg PO Q6H PRN PRN Reason: FEVER OR PAIN Bacitracin (Bacitracin -) 1 applic TP BID [facility] Last Admin: 10/01/16 09:22 Dose: 1 applic Ferrous Sulfate (Feosol -) 325 mg PO BIDWM [facility] Last Admin: 10/01/16 08:00 Dose: 325 mg Furosemide (Lasix Injection -) 40 mg IVPUSH BID@0600,1400 [facility] Last Admin: 10/01/16 13:33 Dose: 40 mg Losartan Potassium (Cozaar -) 25 mg PO DAILY [facility] Last Admin: 10/01/16 09:22 Dose: 25 mg Difluprednate ( Durezol) 0.05% Opth Drops - Pt's Own 1 each OD BID [facility] Last Admin: 10/01/16 09:23 Dose: 1 each Pantoprazole Sodium (Protonix -) 40 mg PO BID [facility] Last Admin: 10/01/16 09:23 Dose: 40 mg Spironolactone (Aldactone -) 25 mg PO BID [facility] Last Admin: 10/01/16 09:22 Dose: 25 mg Warfarin Sodium (Coumadin -) 2 mg PO DAILY@1800 [facility] Last Admin: 09/30/16 17:18 Dose: 2 mg Zolpidem Tartrate (Ambien -) 7.5 mg PO HS PRN Last Admin: 09/30/16 21:56 Dose: 7.5 mg - Objective Vital Signs: Vital Signs Temperature 98.2 F 10/01/16 15:05 Pulse Rate 72 10/01/16 15:05 Respiratory Rate 22 10/01/16 15:05 Blood Pressure 129/64 10/01/16 15:05 O2 Sat by Pulse Oximetry (%) 94 L 10/01/16 09:00 Constitutional: Yes: No Distress, Calm Neck: Yes: Supple Cardiovascular: Yes: Pulse Irregular, Murmur ([place] mechanical valve sounds), Other (2/6 SM) Respiratory: Yes: Regular, Diminished Gastrointestinal: Yes: Normal Bowel Sounds, Soft Edema: Yes Edema: LLE: 1+, RLE: 1+ Labs: CBC, BMP 10/01/16 05:35 10/01/16 05:35 INR, PTT INR 3.27 (0.82-1.09) H 10/01/16 05:35 Problem List - Problems (1) CHF (congestive heart failure) Code(s): I50.9 - HEART FAILURE, UNSPECIFIED Qualifiers: Congestive heart failure type: diastolic Congestive heart failure chronicity: acute on chronic Qualified Code(s): I50.33 - Acute on chronic diastolic (congestive) heart failure (2) Rheumatic heart disease Code(s): I09.9 - RHEUMATIC HEART DISEASE, UNSPECIFIED (3) S/P AVR (aortic valve replacement) Code(s): Z95.2 - PRESENCE OF PROSTHETIC HEART VALVE (4) S/P MVR (mitral valve replacement) Code(s): Z95.2 - PRESENCE OF PROSTHETIC HEART VALVE (6) Shortness of breath Code(s): R06.02 - SHORTNESS OF BREATH (7) Permanent atrial fibrillation Code(s): I48.2 - CHRONIC ATRIAL FIBRILLATION (8) Pulmonary hypertension Code(s): I27.2 - OTHER SECONDARY PULMONARY HYPERTENSION (9) Venous stasis dermatitis of both lower extremities Code(s): I83.11 - VARICOSE VEINS OF RIGHT LOWER EXTREMITY WITH INFLAMMATION I83.12 - VARICOSE VEINS OF LEFT LOWER EXTREMITY WITH INFLAMMATION (10) Cholelithiasis Code(s): K80.20 - CALCULUS OF GALLBLADDER W/O CHOLECYSTITIS W/O OBSTRUCTION Qualifiers: Cholelithiasis location: gallbladder Cholecystitis presence: without cholecystitis Biliary obstruction: without biliary obstruction Qualified Code(s): K80.20 - Calculus of gallbladder without cholecystitis without obstruction (11) Hepatic cirrhosis Code(s): K74.60 - UNSPECIFIED CIRRHOSIS OF LIVER Qualifiers: Hepatic cirrhosis type: unspecified hepatic cirrhosis Ascites presence : without ascites Qualified Code(s): K74.60 - Unspecified cirrhosis of liver (12) Hepatocellular carcinoma Code(s): C22.0 - LIVER CELL CARCINOMA (13) Angiodysplasia of gastrointestinal tract Code(s): K55.20 - ANGIODYSPLASIA OF COLON WITHOUT HEMORRHAGE Assessment/Plan Echocardiography dated 09/09/2016 revealed normal LV size and function with mild concentric LVH, severe bi-atrial enlargement, mechanical AVR, MVR, Bio- prosthetic TV, moderate TR with RVSP >60 mmHg Echocardiography dated 03/22/2015 revealed preserved LV function with mild concentric LVH, severe bi-atrial dilatation, mechanical MV and AV prosthesis, TV bio-prosthetic, moderate to severe MR, moderate TR with severe pulmonary HTN RVSP of 67 mHg 1. 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 Severe pulmonary HTN related to above 3. Post MVR and AVR (mechanical prosthesis) with history of rheumatic heart disease and therapeutic INR 4. Post TVR (Bio-prosthesis) 5. Permanent atrial fibrillation with slow ventricular response, asymptomatic 6. History of hepatic cirrhosis with likely HCC 7. Acute on CKD 8. Anemia with dropping H/H post transfusion, 2/2 GI bleed, h/o AVM PLAN: 1. Continue Lasix 40 IV bid and Aldactone 25 bid with caution and close monitoring of renal function and electrolytes 2. Continue Coumadin as per INR maintain 2.5-3.0 with close monitoring of H/H 3. Continue Cozaar 25 qd with caution and close monitoring of renal function 4. Transfuse to maintain Hg equal or > 8.0, protonix, endoscopy is risky 5. O2 to maintain saO2, support stockings, OOB to chair, DNR/DNI
[2016-10-01] MEDS: WARFARIN NA 2 MG TABLET (UD) PO SCH (16:59)
[2016-10-01] MEDS: ZOLPIDEM TARTRATE 5 MG TABLET PO PRN (22:00)
[2016-10-02] MEDS: FUROSEMIDE 40 MG/4 ML INJECTABLE VIAL IVPUSH SCH (06:22)
[2016-10-02 08:14] LABS: BASOPHIL 1.2 % (0-2.0); EOSINOPHIL 8.6 % (0-4.5); MCH 29.3 pg (25.7-33.7); MCHC 32.9 g/dl (32.0-36.0); MEAN PLT VOLUME 9.2 fl (7.5-11.1); NEUTROPHILS 65.2 % (42.8-82.8); PLATELET COUNT 199 K/MM3 (134-434); WHITE BLOOD COUNT 4.9 K/mm3 (4.0-10.0)
[2016-10-02 08:42] LABS: ALBUMIN 3.3 g/dl (3.4-5.0); BILIRUBIN,TOTAL 1.1 mg/dL (0.2-1.0); CALCIUM 8.5 mg/dL (8.5-10.1); CREATININE 1.4 mg/dL (0.55-1.02); TOT PROT 6.5 g/dl (6.4-8.2)
[2016-10-02 09:18] LABS: INR 3.09 (0.82-1.09); PROTHROMBIN TIME (PATIENT) 34.8 SEC (9.98-11.88)
[2016-10-02] MEDS: SPIRONOLACTONE 25 MG TABLET (FP) PO SCH ×2 (09:30→22:43)
[2016-10-02] MEDS: DIFLUPREDNATE 0.05% OD SCH ×2 (09:31→22:43)
[2016-10-02] MEDS: BACITRACIN 30 GM TUBE TOPICAL OINTMENT TP SCH ×2 (09:31→22:43)
[2016-10-02] MEDS: LOSARTAN POTASSIUM 50 MG TABLET (FP) PO SCH (09:31)
[2016-10-02] MEDS: FERROUS SO4 325 MG TABLET (FP) PO SCH ×2 (09:31→17:06)
[2016-10-02] MEDS: OPTH OD SCH ×2 (09:31→22:43)
[2016-10-02] MEDS: PANTOPRAZOLE 40 MG TABLET (FP) PO SCH ×2 (09:31→22:43)
--- NOTE | 2016-10-02 09:47 | PN ---
Progress Note, Physician Chief Complaint: AWAKE ALERT LABORED BREATHING ON 02 [place] FAMILY BEDSIDE FOR MEETING - Current Medication List Current Medications: Active Medications Acetaminophen (Tylenol -) 650 mg PO Q6H PRN PRN Reason: FEVER OR PAIN Bacitracin (Bacitracin -) 1 applic TP BID [facility] Last Admin: 10/02/16 09:31 Dose: 1 applic Ferrous Sulfate (Feosol -) 325 mg PO BIDWM [facility] Last Admin: 10/02/16 09:31 Dose: 325 mg Furosemide (Lasix Injection -) 40 mg IVPUSH BID@0600,1400 [facility] Last Admin: 10/02/16 06:22 Dose: 40 mg Losartan Potassium (Cozaar -) 25 mg PO DAILY [facility] Last Admin: 10/02/16 09:31 Dose: 25 mg Difluprednate ( Durezol) 0.05% Opth Drops - Pt's Own 1 each OD BID [facility] Last Admin: 10/02/16 09:31 Dose: 1 each Pantoprazole Sodium (Protonix -) 40 mg PO BID [facility] Last Admin: 10/02/16 09:31 Dose: 40 mg Spironolactone (Aldactone -) 25 mg PO BID [facility] Last Admin: 10/02/16 09:30 Dose: 25 mg Zolpidem Tartrate (Ambien -) 7.5 mg PO HS PRN Last Admin: 10/01/16 22:00 Dose: 7.5 mg - Objective Vital Signs: Vital Signs Temperature 97.9 F 10/02/16 08:39 Pulse Rate 72 10/02/16 08:39 Respiratory Rate 18 10/02/16 08:39 Blood Pressure 123/67 10/02/16 08:39 O2 Sat by Pulse Oximetry (%) 100 10/01/16 21:00 Constitutional: Yes: Moderate Distress Eyes: Yes: WNL HENT: Yes: WNL Neck: Yes: WNL Cardiovascular: Yes: Pulse Irregular, Murmur Respiratory: Yes: Diminished, On Nasal O2, Rales, SOB Gastrointestinal: Yes: WNL, Hepatomegaly Genitourinary: Yes: Incontinence Musculoskeletal: Yes: Muscle Weakness Extremities: Yes: Other Edema: Yes Edema: LLE: 1+, RLE: 1+ Peripheral Pulses WNL: Yes Integumentary: Yes: Rash, Skin Tear, Venous Stasis Changes Wound/Incision: Yes: Open to air Neurological: Yes: Unsteady Gait, Weakness ...Motor Strength: LLE, RLE Psychiatric: Yes: Other Labs: CBC, BMP 10/02/16 06:00 10/02/16 06:00 INR, PTT INR 3.09 (0.82-1.09) H 10/02/16 06:00 Problem List - Problems (1) Anemia Code(s): D64.9 - ANEMIA, UNSPECIFIED Qualifiers: Anemia type: iron deficiency (2) CHF (congestive heart failure) Code(s): I50.9 - HEART FAILURE, UNSPECIFIED Qualifiers: Congestive heart failure type: diastolic Congestive heart failure chronicity: acute on chronic Qualified Code(s): I50.33 - Acute on chronic diastolic (congestive) heart failure (3) Elevated serum creatinine Code(s): R79.89 - OTHER SPECIFIED ABNORMAL FINDINGS OF BLOOD CHEMISTRY (4) Hepatic cirrhosis Code(s): K74.60 - UNSPECIFIED CIRRHOSIS OF LIVER Qualifiers: Hepatic cirrhosis type: unspecified hepatic cirrhosis Ascites presence : without ascites Qualified Code(s): K74.60 - Unspecified cirrhosis of liver (5) Rheumatic heart disease Code(s): I09.9 - RHEUMATIC HEART DISEASE, UNSPECIFIED (6) S/P AVR (aortic valve replacement) Code(s): Z95.2 - PRESENCE OF PROSTHETIC HEART VALVE (7) S/P MVR (mitral valve replacement) Code(s): Z95.2 - PRESENCE OF PROSTHETIC HEART VALVE (9) Shortness of breath Code(s): R06.02 - SHORTNESS OF BREATH Assessment/Plan FAMILY MEETING DISCUSSING ADVANCED DIRECTIVES, I SPOKE WITH PATIENT'S CHILDREN, OPTIONS OF TRANSFERRING TO [facility] WAS DISCUSSED FOR A MORE AGGRESSIVE APPROACH VS [facility] CARE FOR PALLIATIVE TREATMENT VS HOME CARE WITH COMFORT HOME TREATMENT. I TOLD THE FAMILY I WOULD DISCUSS THE OPTIONS WITH THEIR MOM. THE PATIENT AND I SPOKE AND DISCUSSED ALL OF THESE OPTIONS, SHE REITERATED TO ME ONCE AGAIN SHE WANTS TO BE DNR/DNI NO ARTIFICIAL LIFE SUPPORT AND SHE WANTS TO GO TO [facility] AND WOULD LIKE COMFORT CARE WITH OXYGEN MASK/NC ONLY. SHE ALSO DENIES WANTING TO GO HOME "I WANT TO AT [facility], IT WOULD BE GOOD" . NURSE DEGROOT WITNESSED THIS CONVERSATION AND I ASKED THE NURSE TO ALSO DOCUMENT THIS DISCUSSION. I WILL SPEAK WITH THE PATIENT'S CHILDREN AND REVIEW MY CONVERSATION. I HAVE DISCUSSED WITH ESTER (DAUGHTER) MY CONVERSATION WITH HER MOM (THE PATIENT ) AND WILL START TRANSFER PROCESS TO [facility] ONCE BED IS AVAILABLE.
--- NOTE | 2016-10-02 10:25 | PN ---
Progress Note, Physician History of Present Illness: PULMONARY ALERT,C/O INCREASED SOB TODAY,O2 SAT 98% ON NASAL O2 - Current Medication List Current Medications: Active Medications Acetaminophen (Tylenol -) 650 mg PO Q6H PRN PRN Reason: FEVER OR PAIN Bacitracin (Bacitracin -) 1 applic TP BID [facility] Last Admin: 10/02/16 09:31 Dose: 1 applic Ferrous Sulfate (Feosol -) 325 mg PO BIDWM [facility] Last Admin: 10/02/16 09:31 Dose: 325 mg Furosemide (Lasix Injection -) 40 mg IVPUSH BID@0600,1400 [facility] Last Admin: 10/02/16 06:22 Dose: 40 mg Losartan Potassium (Cozaar -) 25 mg PO DAILY [facility] Last Admin: 10/02/16 09:31 Dose: 25 mg Difluprednate ( Durezol) 0.05% Opth Drops - Pt's Own 1 each OD BID [facility] Last Admin: 10/02/16 09:31 Dose: 1 each Pantoprazole Sodium (Protonix -) 40 mg PO BID [facility] Last Admin: 10/02/16 09:31 Dose: 40 mg Spironolactone (Aldactone -) 25 mg PO BID [facility] Last Admin: 10/02/16 09:30 Dose: 25 mg Zolpidem Tartrate (Ambien -) 7.5 mg PO HS PRN Last Admin: 10/01/16 22:00 Dose: 7.5 mg - Objective Vital Signs: Vital Signs Temperature 97.9 F 10/02/16 08:39 Pulse Rate 72 10/02/16 08:39 Respiratory Rate 18 10/02/16 08:39 Blood Pressure 123/67 10/02/16 08:39 O2 Sat by Pulse Oximetry (%) 100 10/01/16 21:00 Constitutional: Yes: Thin, Other (MILDLY DYSPNEIC) Eyes: Yes: WNL HENT: Yes: WNL Neck: Yes: WNL Cardiovascular: Yes: Pulse Irregular, S1, S2 Respiratory: Yes: Rales (GISELLE RALES 1/3 UP) Gastrointestinal: Yes: Normal Bowel Sounds, Soft Extremities: Yes: WNL Edema: Yes Labs: CBC, BMP 10/02/16 06:00 10/02/16 06:00 INR, PTT INR 3.09 (0.82-1.09) H 10/02/16 06:00 Problem List - Problems (1) RADHA (acute kidney injury) Code(s): N17.9 - ACUTE KIDNEY FAILURE, UNSPECIFIED (2) Anemia Code(s): D64.9 - ANEMIA, UNSPECIFIED Qualifiers: Anemia type: iron deficiency (3) CHF (congestive heart failure) Code(s): I50.9 - HEART FAILURE, UNSPECIFIED Qualifiers: Congestive heart failure type: diastolic Congestive heart failure chronicity: acute on chronic Qualified Code(s): I50.33 - Acute on chronic diastolic (congestive) heart failure (4) Cholelithiasis Code(s): K80.20 - CALCULUS OF GALLBLADDER W/O CHOLECYSTITIS W/O OBSTRUCTION Qualifiers: Cholelithiasis location: gallbladder Cholecystitis presence: without cholecystitis Biliary obstruction: without biliary obstruction Qualified Code(s): K80.20 - Calculus of gallbladder without cholecystitis without obstruction (5) Elevated serum creatinine Code(s): R79.89 - OTHER SPECIFIED ABNORMAL FINDINGS OF BLOOD CHEMISTRY (6) Hepatic cirrhosis Code(s): K74.60 - UNSPECIFIED CIRRHOSIS OF LIVER Qualifiers: Hepatic cirrhosis type: unspecified hepatic cirrhosis Ascites presence : without ascites Qualified Code(s): K74.60 - Unspecified cirrhosis of liver (7) Rheumatic heart disease Code(s): I09.9 - RHEUMATIC HEART DISEASE, UNSPECIFIED (8) S/P AVR (aortic valve replacement) Code(s): Z95.2 - PRESENCE OF PROSTHETIC HEART VALVE (9) S/P MVR (mitral valve replacement) Code(s): Z95.2 - PRESENCE OF PROSTHETIC HEART VALVE (11) Shortness of breath Code(s): R06.02 - SHORTNESS OF BREATH Assessment/Plan ASSESSMENT AND PLAN: Acute on Chronic LV Diastolic Heart Failure/Right Heart Failure Pulmonary HTN s/p AVR/MVR Atrial Fibrillation Liver Cirrhosis Likely HCC GI Bleed stable Anemia h/o AVM acute on chronic renal failure - continue lasix, aldactone - monitor urine output, creatinine - daily weights, I/Os - monitor H/H - continue protonix - continue anticoagulation - O2 to keep SpO2 >90% - comfort care - prognosis poor DR BOUCHER
--- NOTE | 2016-10-02 11:21 | PN ---
Progress Note, Physician Chief Complaint: Dyspnea persists with pedal edema Family by bedside Dr. Dimas's note reviewed History of Present Illness: Patient was seen and examined. Awake and alert. Chart was reviewed Denies chest pain or palpitations Dyspnea on exertion Pedal edema persists Currently DNR/DNI and await transfer to [facility] for palliative care - Current Medication List Current Medications: Active Medications Acetaminophen (Tylenol -) 650 mg PO Q6H PRN PRN Reason: FEVER OR PAIN Albuterol Sulfate (Ventolin 0.083% Nebulizer Soln -) 1 amp NEB Q4H PRN PRN Reason: SHORT OF BREATH/WHEEZING Bacitracin (Bacitracin -) 1 applic TP BID [facility] Last Admin: 10/02/16 09:31 Dose: 1 applic Ferrous Sulfate (Feosol -) 325 mg PO BIDWM [facility] Last Admin: 10/02/16 09:31 Dose: 325 mg Furosemide (Lasix Injection -) 40 mg IVPUSH BID@0600,1400 [facility] Last Admin: 10/02/16 06:22 Dose: 40 mg Losartan Potassium (Cozaar -) 25 mg PO DAILY [facility] Last Admin: 10/02/16 09:31 Dose: 25 mg Difluprednate ( Durezol) 0.05% Opth Drops - Pt's Own 1 each OD BID [facility] Last Admin: 10/02/16 09:31 Dose: 1 each Pantoprazole Sodium (Protonix -) 40 mg PO BID [facility] Last Admin: 10/02/16 09:31 Dose: 40 mg Spironolactone (Aldactone -) 25 mg PO BID [facility] Last Admin: 10/02/16 09:30 Dose: 25 mg Zolpidem Tartrate (Ambien -) 7.5 mg PO HS PRN Last Admin: 10/01/16 22:00 Dose: 7.5 mg - Objective Vital Signs: Vital Signs Temperature 97.9 F 10/02/16 08:39 Pulse Rate 72 10/02/16 08:39 Respiratory Rate 18 10/02/16 08:39 Blood Pressure 123/67 10/02/16 08:39 O2 Sat by Pulse Oximetry (%) 97 10/02/16 08:00 Neck: Yes: Supple Cardiovascular: Yes: Pulse Irregular, Murmur (2/6 SM), S1, S2, Other ( Mechanical click) Respiratory: Yes: Diminished Gastrointestinal: Yes: Normal Bowel Sounds, Soft. No: Tenderness Edema: Yes Edema: LLE: 1+, RLE: 1+ Additional Findings/Remarks: - Review of Systems Constitutional: denies: Chills Cardiovascular: reports: Shortness of Breath. denies: Chest Pain, Palpitations Respiratory: reports: SOB, SOB on Exertion. denies: Cough, Hemoptysis, Orthopnea, PND Gastrointestinal: denies: Abdominal Pain, Constipation, Diarrhea, denies: Melena , Nausea, Rectal Bleeding, Vomiting Musculoskeletal: denies: Joint Pain Neurological: denies: Dizziness, Headache, Seizure, Syncope Labs: CBC, BMP 10/02/16 06:00 10/02/16 06:00 INR, PTT INR 3.09 (0.82-1.09) H 10/02/16 06:00 Problem List - Problems (1) CHF (congestive heart failure) Code(s): I50.9 - HEART FAILURE, UNSPECIFIED Qualifiers: Congestive heart failure type: diastolic Congestive heart failure chronicity: acute on chronic Qualified Code(s): I50.33 - Acute on chronic diastolic (congestive) heart failure (2) Shortness of breath Code(s): R06.02 - SHORTNESS OF BREATH (3) S/P MVR (mitral valve replacement) Code(s): Z95.2 - PRESENCE OF PROSTHETIC HEART VALVE (4) Rheumatic heart disease Code(s): I09.9 - RHEUMATIC HEART DISEASE, UNSPECIFIED (5) S/P AVR (aortic valve replacement) Code(s): Z95.2 - PRESENCE OF PROSTHETIC HEART VALVE (7) Anemia Code(s): D64.9 - ANEMIA, UNSPECIFIED Qualifiers: Anemia type: iron deficiency (8) Hepatic cirrhosis Code(s): K74.60 - UNSPECIFIED CIRRHOSIS OF LIVER Qualifiers: Hepatic cirrhosis type: unspecified hepatic cirrhosis Ascites presence : without ascites Qualified Code(s): K74.60 - Unspecified cirrhosis of liver Assessment/Plan 1. 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 Severe pulmonary HTN 3. Post MVR and AVR (mechanical prosthesis) with history of rheumatic heart disease 4. Post TVR (Bio-prosthesis) 5. Permanent atrial fibrillation with slow ventricular response 6. History of hepatic cirrhosis 7. Acute on CKD 8. Anemia, history of GI bleed, h/o AVM PLAN: 1. Continue Lasix 40 mg IV BID and Aldactone 25 mg BID with caution and close monitoring of renal function and electrolytes 2. Continue Coumadin as per INR maintain 2.5-3.0 with close monitoring of H/H 3. Continue Cozaar with caution and close monitoring of renal function 4. Transfuse to maintain Hg equal or > 8.0 5. O2 to maintain saO2, support stockings, OOB to chair, DNR/DNI - supportive care Await transfer to [facility]. Overall poor prognosis Elio Barroso MD
--- NOTE | 2016-10-02 12:29 | DS ---
Physical Examination Vital Signs: Vital Signs Temperature 97.9 F 10/02/16 08:39 Pulse Rate 72 10/02/16 08:39 Respiratory Rate 18 10/02/16 08:39 Blood Pressure 123/67 10/02/16 08:39 O2 Sat by Pulse Oximetry (%) 97 10/02/16 08:00 Findings/Remarks: SEE PROGRESS NOTE TODAY Labs: CBC, BMP 10/02/16 06:00 10/02/16 06:00 Discharge Summary Reason For Visit: CHF/SOB/ELEVATE SERUM CREATNINE Current Active Problems RADHA (acute kidney injury) (Acute) Anemia (Acute) Angiodysplasia of gastrointestinal tract (Acute) Azotemia (Acute) CHF (congestive heart failure) (Acute) CKD (chronic kidney disease) (Acute) Cholelithiasis (Acute) Elevated serum creatinine (Acute) Enlarged liver (Acute) Hepatic cirrhosis (Acute) Hepatocellular carcinoma (Acute) Left-sided nosebleed (Acute) Liver mass (Acute) Permanent atrial fibrillation (Acute) Pulmonary hypertension (Acute) Rheumatic heart disease (Acute) Right heart failure (Acute) S/P AVR (aortic valve replacement) (Acute) S/P MVR (mitral valve replacement) (Acute) S/P TVR (tricuspid valve replacement) (Acute) Shortness of breath (Acute) The administrative codes within the [email or web address] content you are accessing may have as of 07/05/2016. Please contact your IT Dept/Help Desk and request the latest Regulatory release be installed. IT Dept/Help Desk- Please refer to our FAQ page ([email or web address]) or contact [facility] Customer Support at [email or web address] (Acute) Tricuspid regurgitation (Acute) Venous stasis dermatitis of both lower extremities (Acute) Procedures: Principal: IV DOBUTAMINE/LASIX, 02 SUPPORT. DIURESIS IV AND PO, ICU AND CARDIOLOGY TELEMETRY FLOOR, POOR PROGNOSIS PATIENT AND FAMILY AGREED TO [facility] Condition: Guarded - Instructions Diet, Activity, Other Instructions: LOW SALT Referrals: Braeden Dimas MD [Primary Care Provider] - Disposition: [facility]ILITY - Home Medications Comprehensive Discharge Medication List: Ambulatory Orders Ferrous Sulfate [Feosol] 325 mg PO BID 07/22/13 Calcium Citrate/Vitamin D3 [Calcitrate + Vit D Caplet] 1 each PO BID 09/05/16 Difluprednate [Durezol] 1 drop OP BID 09/05/16 Losartan Potassium [Cozaar -] 25 mg PO DAILY 09/05/16 Nepafenac [Ilevro] 1 drop OP DAILY 09/05/16 Non-Formulary 1 tab PO DAILY 09/05/16 Warfarin Sodium [Coumadin] 3 mg PO ASDIR 09/05/16 Acetaminophen [Tylenol .Regular Strength -] 650 mg PO Q6H PRN #0 tablet Albuterol 0.083% Nebulizer Argenis [Ventolin 0.083% Nebulizer Soln -] 1 amp NEB Q4H PRN #0 amp 10/02/16 Bacitracin - [Bacitracin Topical Ointment -] 1 applic TP BID tube 10/02/16 Ferrous Sulfate [Feosol] 325 mg PO BIDWM ud 10/02/16 Furosemide [Lasix -] 40 mg PO HS tablet 10/02/16 Furosemide [Lasix -] 80 mg PO DAILY tablet 10/02/16 Losartan Potassium [Cozaar -] 25 mg PO DAILY tablet 10/02/16 Pantoprazole Sodium [Protonix -] 40 mg PO BID tablet.ec 10/02/16 Spironolactone [Aldactone -] 25 mg PO BID tablet 10/02/16 Warfarin Na [Coumadin -] 2 mg PO DAILY@1800 tablet 10/02/16 Zolpidem Tartrate [Ambien] 7.5 mg PO HS PRN #30 tablet MDD 1 10/02/16
[2016-10-02] MEDS ORDERED: FUROSEMIDE 40 MG TABLET (FP) PO SCH (12:30)
[2016-10-02] MEDS ORDERED: FUROSEMIDE 40 MG TABLET (FP) PO ONE (15:30)
--- NOTE | 2016-10-02 15:49 | PN ---
Progress Note, Physician History of Present Illness: Pt seen and examined at bedside. She appears comfortable. - Current Medication List Current Medications: Active Medications Acetaminophen (Tylenol -) 650 mg PO Q6H PRN PRN Reason: FEVER OR PAIN Albuterol Sulfate (Ventolin 0.083% Nebulizer Soln -) 1 amp NEB Q4H PRN PRN Reason: SHORT OF BREATH/WHEEZING Bacitracin (Bacitracin -) 1 applic TP BID [facility] Last Admin: 10/02/16 09:31 Dose: 1 applic Ferrous Sulfate (Feosol -) 325 mg PO BIDWM [facility] Last Admin: 10/02/16 09:31 Dose: 325 mg Furosemide (Lasix -) 40 mg PO HS [facility] Losartan Potassium (Cozaar -) 25 mg PO DAILY [facility] Last Admin: 10/02/16 09:31 Dose: 25 mg Difluprednate ( Durezol) 0.05% Opth Drops - Pt's Own 1 each OD BID [facility] Last Admin: 10/02/16 09:31 Dose: 1 each Pantoprazole Sodium (Protonix -) 40 mg PO BID [facility] Last Admin: 10/02/16 09:31 Dose: 40 mg Spironolactone (Aldactone -) 25 mg PO BID [facility] Last Admin: 10/02/16 09:30 Dose: 25 mg Zolpidem Tartrate (Ambien -) 7.5 mg PO HS PRN Last Admin: 10/01/16 22:00 Dose: 7.5 mg - Objective Vital Signs: Vital Signs Temperature 98 F 10/02/16 14:48 Pulse Rate 73 10/02/16 14:48 Respiratory Rate 18 10/02/16 14:48 Blood Pressure 123/67 10/02/16 08:39 O2 Sat by Pulse Oximetry (%) 97 10/02/16 08:00 Constitutional: Yes: Calm Eyes: Yes: Conjunctiva Clear HENT: Yes: Atraumatic Cardiovascular: Yes: S1, S2 Respiratory: Yes: Diminished, On Nasal O2 Gastrointestinal: Yes: Soft Genitourinary: Yes: WNL Musculoskeletal: Yes: Muscle Weakness Edema: Yes Neurological: Yes: Oriented Psychiatric: Yes: Oriented Labs: CBC, BMP 10/02/16 06:00 10/02/16 06:00 INR, PTT INR 3.09 (0.82-1.09) H 10/02/16 06:00 Problem List - Problems (1) Anemia Code(s): D64.9 - ANEMIA, UNSPECIFIED Qualifiers: Anemia type: iron deficiency (2) CHF (congestive heart failure) Code(s): I50.9 - HEART FAILURE, UNSPECIFIED Qualifiers: Congestive heart failure type: diastolic Congestive heart failure chronicity: acute on chronic Qualified Code(s): I50.33 - Acute on chronic diastolic (congestive) heart failure (3) Cholelithiasis Code(s): K80.20 - CALCULUS OF GALLBLADDER W/O CHOLECYSTITIS W/O OBSTRUCTION Qualifiers: Cholelithiasis location: gallbladder Cholecystitis presence: without cholecystitis Biliary obstruction: without biliary obstruction Qualified Code(s): K80.20 - Calculus of gallbladder without cholecystitis without obstruction (4) Hepatic cirrhosis Code(s): K74.60 - UNSPECIFIED CIRRHOSIS OF LIVER Qualifiers: Hepatic cirrhosis type: unspecified hepatic cirrhosis Ascites presence : without ascites Qualified Code(s): K74.60 - Unspecified cirrhosis of liver (5) S/P AVR (aortic valve replacement) Code(s): Z95.2 - PRESENCE OF PROSTHETIC HEART VALVE (6) S/P MVR (mitral valve replacement) Code(s): Z95.2 - PRESENCE OF PROSTHETIC HEART VALVE (8) Shortness of breath Code(s): R06.02 - SHORTNESS OF BREATH (9) RADHA (acute kidney injury) Code(s): N17.9 - ACUTE KIDNEY FAILURE, UNSPECIFIED Assessment/Plan Current Medications Generic Name Dose Route Start Last Admin Trade Name Freq PRN Reason Stop Dose Admin Acetaminophen 650 mg 09/26/16 07:48 Tylenol - PO Q6H PRN FEVER OR PAIN Albuterol Sulfate 1 amp 10/02/16 10:36 Ventolin 0.083% Nebulizer Soln - NEB Q4H PRN SHORT OF BREATH/WHEEZING Bacitracin 1 applic 09/26/16 10:00 10/02/16 09:31 Bacitracin - TP 1 applic BID ABELARDO Administration Ferrous Sulfate 325 mg 09/26/16 08:15 10/02/16 09:31 Feosol - PO 325 mg BIDWM ABELARDO Administration Furosemide 40 mg 10/02/16 22:00 Lasix - PO HS ABELARDO Losartan Potassium 25 mg 09/26/16 10:00 10/02/16 09:31 Cozaar - PO 25 mg DAILY ABELARDO Administration Difluprednate ( 1 each 09/26/16 10:00 10/02/16 09:31 Durezol) 0.05% Opth OD 1 each Drops - Pt's Own BID ABELARDO Administration Pantoprazole Sodium 40 mg 09/26/16 22:00 10/02/16 09:31 Protonix - PO 40 mg BID ABELARDO Administration Spironolactone 25 mg 09/30/16 22:00 10/02/16 09:30 Aldactone - PO 25 mg BID ABELARDO Administration Zolpidem Tartrate 7.5 mg 09/29/16 22:27 10/01/16 22:00 Ambien - PO 7.5 mg HS PRN Administration Impression 1. RADHA 2. aortic valve replacement 3. mitral valve replacement 4. tricuspid valve replacement 5. CHF 6. a-fib 7. anemia 8. hx GI bleed 9. HTN 10. liver cirrhosis 11. CKD Plan - chart reviewed - pt may be going to [place] - cont treatment as per primary team - cont with diuretics - will follow Dr Bo
[2016-10-02] MEDS: ZOLPIDEM TARTRATE 5 MG TABLET PO PRN (22:43)
[2016-10-02] MEDS: FUROSEMIDE 40 MG TABLET (FP) PO SCH (22:43)
[2016-10-03] MEDS: FERROUS SO4 325 MG TABLET (FP) PO SCH ×2 (10:12→17:35)
[2016-10-03] MEDS: BACITRACIN 30 GM TUBE TOPICAL OINTMENT TP SCH ×2 (10:12→22:29)
[2016-10-03] MEDS: LOSARTAN POTASSIUM 50 MG TABLET (FP) PO SCH (10:12)
[2016-10-03] MEDS: PANTOPRAZOLE 40 MG TABLET (FP) PO SCH ×2 (10:12→22:30)
[2016-10-03] MEDS: SPIRONOLACTONE 25 MG TABLET (FP) PO SCH ×2 (10:12→22:29)
[2016-10-03] MEDS: DIFLUPREDNATE 0.05% OD SCH ×2 (10:13→22:30)
[2016-10-03] MEDS: OPTH OD SCH ×2 (10:13→22:30)
--- NOTE | 2016-10-03 10:45 | PN ---
Progress Note (short form) - Note Progress Note: PULMONARY OFFERS NO COMPLAINTS APPEARS STABLE VSS/AFEBRILE ANICTERIC SCATTERED MINIMAL B/L CRACKLES S1S2 MECHANICAL HEART SOUNDS BS+ NO EDEMA LABS/MEDS/NOTES REVIEWED Acute on Chronic LV Diastolic Heart Failure/Right Heart Failure Pulmonary HTN s/p AVR/MVR Atrial Fibrillation Liver Cirrhosis Likely HCC GI Bleed stable Anemia h/o AVM acute on chronic renal failure - continue lasix, aldactone - monitor urine output, creatinine - daily weights, I/Os - monitor H/H - continue protonix - continue anticoagulation - O2 to keep SpO2 >90% - comfort care Rena ORDAZ MD
[2016-10-03] MEDS: ALBUTEROL SO4 0.083% IH SOL 2.5 MG/3 ML VIAL.NEB. NEB PRN (11:28)
--- NOTE | 2016-10-03 12:03 | PN ---
Progress Note, Physician History of Present Illness: Stable dyspnea, LE edema and ascites improved with diuresis, complains of gum pain. - Current Medication List Current Medications: Active Medications Acetaminophen (Tylenol -) 650 mg PO Q6H PRN PRN Reason: FEVER OR PAIN Albuterol Sulfate (Ventolin 0.083% Nebulizer Soln -) 1 amp NEB Q4H PRN PRN Reason: SHORT OF BREATH/WHEEZING Last Admin: 10/03/16 11:28 Dose: 1 amp Bacitracin (Bacitracin -) 1 applic TP BID [facility] Last Admin: 10/03/16 10:12 Dose: 1 applic Ferrous Sulfate (Feosol -) 325 mg PO BIDWM [facility] Last Admin: 10/03/16 10:12 Dose: 325 mg Furosemide (Lasix -) 40 mg PO HS [facility] Last Admin: 10/02/16 22:43 Dose: 40 mg Losartan Potassium (Cozaar -) 25 mg PO DAILY [facility] Last Admin: 10/03/16 10:12 Dose: 25 mg Difluprednate ( Durezol) 0.05% Opth Drops - Pt's Own 1 each OD BID [facility] Last Admin: 10/03/16 10:13 Dose: 1 each Pantoprazole Sodium (Protonix -) 40 mg PO BID [facility] Last Admin: 10/03/16 10:12 Dose: 40 mg Spironolactone (Aldactone -) 25 mg PO BID [facility] Last Admin: 10/03/16 10:12 Dose: 25 mg Zolpidem Tartrate (Ambien -) 7.5 mg PO HS PRN Last Admin: 10/02/16 22:43 Dose: 7.5 mg - Objective Vital Signs: Vital Signs Temperature 98 F 10/03/16 08:01 Pulse Rate 65 10/03/16 11:27 Respiratory Rate 18 10/03/16 08:01 Blood Pressure 132/78 10/03/16 08:01 O2 Sat by Pulse Oximetry (%) 100 10/03/16 11:27 Constitutional: Yes: No Distress, Calm Neck: Yes: Supple Cardiovascular: Yes: Pulse Irregular, Murmur (2/6 SM), Other ([place] mechanical valve sounds) Respiratory: Yes: Regular, Diminished, On Nasal O2 Gastrointestinal: Yes: Normal Bowel Sounds, Soft Edema: Yes Edema: LLE: Trace, RLE: Trace Labs: CBC, BMP 10/02/16 06:00 10/02/16 06:00 INR, PTT INR 3.09 (0.82-1.09) H 10/02/16 06:00 Problem List - Problems (1) CHF (congestive heart failure) Code(s): I50.9 - HEART FAILURE, UNSPECIFIED Qualifiers: Congestive heart failure type: diastolic Congestive heart failure chronicity: acute on chronic Qualified Code(s): I50.33 - Acute on chronic diastolic (congestive) heart failure (2) Rheumatic heart disease Code(s): I09.9 - RHEUMATIC HEART DISEASE, UNSPECIFIED (3) S/P AVR (aortic valve replacement) Code(s): Z95.2 - PRESENCE OF PROSTHETIC HEART VALVE (4) S/P MVR (mitral valve replacement) Code(s): Z95.2 - PRESENCE OF PROSTHETIC HEART VALVE (6) Shortness of breath Code(s): R06.02 - SHORTNESS OF BREATH (7) Permanent atrial fibrillation Code(s): I48.2 - CHRONIC ATRIAL FIBRILLATION (8) Pulmonary hypertension Code(s): I27.2 - OTHER SECONDARY PULMONARY HYPERTENSION (9) Venous stasis dermatitis of both lower extremities Code(s): I83.11 - VARICOSE VEINS OF RIGHT LOWER EXTREMITY WITH INFLAMMATION I83.12 - VARICOSE VEINS OF LEFT LOWER EXTREMITY WITH INFLAMMATION (10) Cholelithiasis Code(s): K80.20 - CALCULUS OF GALLBLADDER W/O CHOLECYSTITIS W/O OBSTRUCTION Qualifiers: Cholelithiasis location: gallbladder Cholecystitis presence: without cholecystitis Biliary obstruction: without biliary obstruction Qualified Code(s): K80.20 - Calculus of gallbladder without cholecystitis without obstruction (11) Hepatic cirrhosis Code(s): K74.60 - UNSPECIFIED CIRRHOSIS OF LIVER Qualifiers: Hepatic cirrhosis type: unspecified hepatic cirrhosis Ascites presence : without ascites Qualified Code(s): K74.60 - Unspecified cirrhosis of liver (12) Hepatocellular carcinoma Code(s): C22.0 - LIVER CELL CARCINOMA (13) Angiodysplasia of gastrointestinal tract Code(s): K55.20 - ANGIODYSPLASIA OF COLON WITHOUT HEMORRHAGE Assessment/Plan Echocardiography dated 09/09/2016 revealed normal LV size and function with mild concentric LVH, severe bi-atrial enlargement, mechanical AVR, MVR, Bio- prosthetic TV, moderate TR with RVSP >60 mmHg Echocardiography dated 03/22/2015 revealed preserved LV function with mild concentric LVH, severe bi-atrial dilatation, mechanical MV and AV prosthesis, TV bio-prosthetic, moderate to severe MR, moderate TR with severe pulmonary HTN RVSP of 67 mHg 1. 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 Severe pulmonary HTN related to above 3. Post MVR and AVR (mechanical prosthesis) with history of rheumatic heart disease and therapeutic INR 4. Post TVR (Bio-prosthesis) 5. Permanent atrial fibrillation with slow ventricular response, asymptomatic 6. History of hepatic cirrhosis with likely HCC 7. Acute on CKD 8. Anemia with dropping H/H post transfusion, 2/2 GI bleed, h/o AVM PLAN: 1. Continue Lasix 40 qd and Aldactone 25 bid 2. Continue Coumadin as per INR maintain 2.5-3.0 3. Continue Cozaar 25 qd 4. Transfuse to maintain Hg equal or > 8.0, protonix, endoscopy is risky 5. O2 to maintain saO2, support stockings, OOB to chair, DNR/DNI 6. Plan for inpatient hospice at [facility], topical oral benzocaine as needed
[2016-10-03] MEDS ORDERED: BENZOCAINE 20 % GEL 9 GM TUBE MM PRN (14:00)
--- NOTE | 2016-10-03 15:53 | PN ---
Progress Note (short form) - Note Progress Note: TRANSFER TO [facility] CANCELLED BECAUSE PER [facility] NOT APPROPIATE, WILL [facility] HOME [facility] Problem List - Problems (1) Anemia Code(s): D64.9 - ANEMIA, UNSPECIFIED Qualifiers: Anemia type: iron deficiency (2) CHF (congestive heart failure) Code(s): I50.9 - HEART FAILURE, UNSPECIFIED Qualifiers: Congestive heart failure type: diastolic Congestive heart failure chronicity: acute on chronic Qualified Code(s): I50.33 - Acute on chronic diastolic (congestive) heart failure (3) Elevated serum creatinine Code(s): R79.89 - OTHER SPECIFIED ABNORMAL FINDINGS OF BLOOD CHEMISTRY (4) Hepatic cirrhosis Code(s): K74.60 - UNSPECIFIED CIRRHOSIS OF LIVER Qualifiers: Hepatic cirrhosis type: unspecified hepatic cirrhosis Ascites presence : without ascites Qualified Code(s): K74.60 - Unspecified cirrhosis of liver (5) Rheumatic heart disease Code(s): I09.9 - RHEUMATIC HEART DISEASE, UNSPECIFIED (6) S/P AVR (aortic valve replacement) Code(s): Z95.2 - PRESENCE OF PROSTHETIC HEART VALVE (7) S/P MVR (mitral valve replacement) Code(s): Z95.2 - PRESENCE OF PROSTHETIC HEART VALVE (9) Shortness of breath Code(s): R06.02 - SHORTNESS OF BREATH
--- NOTE | 2016-10-03 15:56 | PN ---
Progress Note, Physician History of Present Illness: Pt seen and examined at bedside. - Current Medication List Current Medications: Active Medications Acetaminophen (Tylenol -) 650 mg PO Q6H PRN PRN Reason: FEVER OR PAIN Albuterol Sulfate (Ventolin 0.083% Nebulizer Soln -) 1 amp NEB Q4H PRN PRN Reason: SHORT OF BREATH/WHEEZING Last Admin: 10/03/16 11:28 Dose: 1 amp Bacitracin (Bacitracin -) 1 applic TP BID [facility] Last Admin: 10/03/16 10:12 Dose: 1 applic Benzocaine (Anbesol -) 1 applic MM Q2H PRN PRN Reason: ORAL PAIN/MOUTH SORES Ferrous Sulfate (Feosol -) 325 mg PO BIDWM [facility] Last Admin: 10/03/16 10:12 Dose: 325 mg Furosemide (Lasix -) 40 mg PO HS [facility] Last Admin: 10/02/16 22:43 Dose: 40 mg Losartan Potassium (Cozaar -) 25 mg PO DAILY [facility] Last Admin: 10/03/16 10:12 Dose: 25 mg Difluprednate ( Durezol) 0.05% Opth Drops - Pt's Own 1 each OD BID [facility] Last Admin: 10/03/16 10:13 Dose: 1 each Pantoprazole Sodium (Protonix -) 40 mg PO BID [facility] Last Admin: 10/03/16 10:12 Dose: 40 mg Spironolactone (Aldactone -) 25 mg PO BID [facility] Last Admin: 10/03/16 10:12 Dose: 25 mg Warfarin Sodium (Coumadin -) 2 mg PO DAILY@1800 [facility] Zolpidem Tartrate (Ambien -) 7.5 mg PO HS PRN Last Admin: 10/02/16 22:43 Dose: 7.5 mg - Objective Vital Signs: Vital Signs Temperature 98.1 F 10/03/16 14:35 Pulse Rate 82 10/03/16 14:35 Respiratory Rate 18 10/03/16 14:35 Blood Pressure 114/65 10/03/16 14:35 O2 Sat by Pulse Oximetry (%) 100 10/03/16 11:27 Constitutional: Yes: Calm Eyes: Yes: Conjunctiva Clear HENT: Yes: Atraumatic Cardiovascular: Yes: S1, S2 Respiratory: Yes: On Nasal O2 Gastrointestinal: Yes: Soft Edema: Yes Edema: LLE: 1+, RLE: 1+ Neurological: Yes: Oriented Labs: CBC, BMP 10/02/16 06:00 10/02/16 06:00 INR, PTT INR 3.09 (0.82-1.09) H 10/02/16 06:00 Problem List - Problems (1) Anemia Code(s): D64.9 - ANEMIA, UNSPECIFIED Qualifiers: Anemia type: iron deficiency (2) CHF (congestive heart failure) Code(s): I50.9 - HEART FAILURE, UNSPECIFIED Qualifiers: Congestive heart failure type: diastolic Congestive heart failure chronicity: acute on chronic Qualified Code(s): I50.33 - Acute on chronic diastolic (congestive) heart failure (3) Cholelithiasis Code(s): K80.20 - CALCULUS OF GALLBLADDER W/O CHOLECYSTITIS W/O OBSTRUCTION Qualifiers: Cholelithiasis location: gallbladder Cholecystitis presence: without cholecystitis Biliary obstruction: without biliary obstruction Qualified Code(s): K80.20 - Calculus of gallbladder without cholecystitis without obstruction (4) Hepatic cirrhosis Code(s): K74.60 - UNSPECIFIED CIRRHOSIS OF LIVER Qualifiers: Hepatic cirrhosis type: unspecified hepatic cirrhosis Ascites presence : without ascites Qualified Code(s): K74.60 - Unspecified cirrhosis of liver (5) S/P AVR (aortic valve replacement) Code(s): Z95.2 - PRESENCE OF PROSTHETIC HEART VALVE (6) S/P MVR (mitral valve replacement) Code(s): Z95.2 - PRESENCE OF PROSTHETIC HEART VALVE (8) Shortness of breath Code(s): R06.02 - SHORTNESS OF BREATH (9) RADHA (acute kidney injury) Code(s): N17.9 - ACUTE KIDNEY FAILURE, UNSPECIFIED Assessment/Plan Current Medications Generic Name Dose Route Start Last Admin Trade Name Freq PRN Reason Stop Dose Admin Acetaminophen 650 mg 09/26/16 07:48 Tylenol - PO Q6H PRN FEVER OR PAIN Albuterol Sulfate 1 amp 10/02/16 10:36 10/03/16 11:28 Ventolin 0.083% Nebulizer Soln - NEB 1 amp Q4H PRN Administration SHORT OF BREATH/WHEEZING Bacitracin 1 applic 09/26/16 10:00 10/03/16 10:12 Bacitracin - TP 1 applic BID ABELARDO Administration Benzocaine 1 applic 10/03/16 14:00 Anbesol - MM Q2H PRN ORAL PAIN/MOUTH SORES Ferrous Sulfate 325 mg 09/26/16 08:15 10/03/16 10:12 Feosol - PO 325 mg BIDWM ABELARDO Administration Furosemide 40 mg 10/02/16 22:00 10/02/16 22:43 Lasix - PO 40 mg HS ABELARDO Administration Losartan Potassium 25 mg 09/26/16 10:00 10/03/16 10:12 Cozaar - PO 25 mg DAILY ABELARDO Administration Difluprednate ( 1 each 09/26/16 10:00 10/03/16 10:13 Durezol) 0.05% Opth OD 1 each Drops - Pt's Own BID ABELARDO Administration Pantoprazole Sodium 40 mg 09/26/16 22:00 10/03/16 10:12 Protonix - PO 40 mg BID ABELARDO Administration Spironolactone 25 mg 09/30/16 22:00 10/03/16 10:12 Aldactone - PO 25 mg BID ABELARDO Administration Warfarin Sodium 2 mg 10/03/16 18:00 Coumadin - PO DAILY@1800 ABELARDO Zolpidem Tartrate 7.5 mg 09/29/16 22:27 10/02/16 22:43 Ambien - PO 7.5 mg HS PRN Administration Impression 1. RADHA 2. aortic valve replacement 3. mitral valve replacement 4. tricuspid valve replacement 5. CHF 6. a-fib 7. anemia 8. hx GI bleed 9. HTN 10. liver cirrhosis 11. CKD Plan - cont current meds - possible home hospice - cardio input appreciated - can keep on diuretics for comfort - cont treatment as per primary team - will follow Dr Bo
[2016-10-03] MEDS: WARFARIN NA 2 MG TABLET (UD) PO SCH (17:35)
[2016-10-03] MEDS: NYSTATIN 500,000 UNITS/5 ML SUSPENSION PO SCH (22:30)
[2016-10-03] MEDS: ZOLPIDEM TARTRATE 5 MG TABLET PO PRN (22:30)
[2016-10-04] MEDS: NYSTATIN 500,000 UNITS/5 ML SUSPENSION PO SCH ×3 (06:36→22:45)
[2016-10-04] MEDS: FUROSEMIDE 40 MG TABLET (FP) PO SCH ×2 (06:36→22:15)
[2016-10-04 08:14] LABS: INR 2.51 (0.82-1.09); PROTHROMBIN TIME (PATIENT) 28.1 SEC (9.98-11.88)
[2016-10-04] MEDS: ALBUTEROL SO4 0.083% IH SOL 2.5 MG/3 ML VIAL.NEB. NEB PRN (10:41)
[2016-10-04 10:53] LABS: BASOPHIL 0.9 % (0-2.0); EOSINOPHIL 6.7 % (0-4.5); MCH 29.7 pg (25.7-33.7); MEAN PLT VOLUME 8.3 fl (7.5-11.1); NEUTROPHILS 66.1 % (42.8-82.8); PLATELET COUNT 182 K/MM3 (134-434); RDW 16.8 % (11.6-15.6); WHITE BLOOD COUNT 4.5 K/mm3 (4.0-10.0)
[2016-10-04] MEDS ORDERED: PT OWN MED DRAWER 7, Y5N ONE (10:53)
[2016-10-04] MEDS: SPIRONOLACTONE 25 MG TABLET (FP) PO SCH ×2 (11:04→22:45)
[2016-10-04] MEDS: LOSARTAN POTASSIUM 50 MG TABLET (FP) PO SCH (11:04)
[2016-10-04] MEDS: FERROUS SO4 325 MG TABLET (FP) PO SCH ×2 (11:04→17:08)
[2016-10-04] MEDS: PANTOPRAZOLE 40 MG TABLET (FP) PO SCH ×2 (11:05→22:45)
[2016-10-04] MEDS: OPTH OD SCH ×2 (11:05→22:45)
[2016-10-04] MEDS: DIFLUPREDNATE 0.05% OD SCH ×2 (11:05→22:45)
[2016-10-04] MEDS: BACITRACIN 30 GM TUBE TOPICAL OINTMENT TP SCH ×2 (11:06→22:45)
--- NOTE | 2016-10-04 11:50 | PN ---
Progress Note, Physician History of Present Illness: FAMILY AT BEDSIDE--THEY WANT IV MEDS--D/W THEM REGARDING [facility]VARY - Current Medication List Current Medications: Active Medications Acetaminophen (Tylenol -) 650 mg PO Q6H PRN PRN Reason: FEVER OR PAIN Albuterol Sulfate (Ventolin 0.083% Nebulizer Soln -) 1 amp NEB Q4H PRN PRN Reason: SHORT OF BREATH/WHEEZING Last Admin: 10/04/16 10:41 Dose: 1 amp Bacitracin (Bacitracin -) 1 applic TP BID [facility] Last Admin: 10/04/16 11:06 Dose: 1 applic Benzocaine (Anbesol -) 1 applic MM Q2H PRN PRN Reason: ORAL PAIN/MOUTH SORES Ferrous Sulfate (Feosol -) 325 mg PO BIDWM [facility] Last Admin: 10/04/16 11:04 Dose: 325 mg Furosemide (Lasix -) 40 mg PO DAILY@0600 [facility] Last Admin: 10/04/16 06:36 Dose: 40 mg Losartan Potassium (Cozaar -) 25 mg PO DAILY [facility] Last Admin: 10/04/16 11:04 Dose: 25 mg Difluprednate ( Durezol) 0.05% Opth Drops - Pt's Own 1 each OD BID [facility] Last Admin: 10/04/16 11:05 Dose: 1 each Nystatin (Nystatin Oral Suspension -) 500,000 units PO TID [facility] Last Admin: 10/04/16 06:36 Dose: 500,000 units Pantoprazole Sodium (Protonix -) 40 mg PO BID [facility] Last Admin: 10/04/16 11:05 Dose: 40 mg Spironolactone (Aldactone -) 25 mg PO BID [facility] Last Admin: 10/04/16 11:04 Dose: 25 mg Warfarin Sodium (Coumadin -) 2 mg PO DAILY@1800 [facility] Last Admin: 10/03/16 17:35 Dose: 2 mg Zolpidem Tartrate (Ambien -) 7.5 mg PO HS PRN Last Admin: 10/03/16 22:30 Dose: 7.5 mg - Objective Vital Signs: Vital Signs Temperature 98.0 F 10/04/16 10:59 Pulse Rate 81 10/04/16 10:59 Respiratory Rate 19 10/04/16 10:59 Blood Pressure 123/53 10/04/16 10:59 O2 Sat by Pulse Oximetry (%) 100 10/04/16 10:41 Cardiovascular: Yes: S1, S2 Respiratory: Yes: Diminished, On Nasal O2 Gastrointestinal: Yes: Normal Bowel Sounds, Soft Labs: CBC, BMP 10/04/16 10:40 10/02/16 06:00 INR, PTT INR 2.51 (0.82-1.09) H 10/04/16 06:00 Problem List - Problems (1) CHF (congestive heart failure) Assessment/Plan: diuretics monitor labs Code(s): I50.9 - HEART FAILURE, UNSPECIFIED Qualifiers: Congestive heart failure type: diastolic Congestive heart failure chronicity: acute on chronic Qualified Code(s): I50.33 - Acute on chronic diastolic (congestive) heart failure (2) Liver mass Code(s): R16.0 - HEPATOMEGALY, NOT ELSEWHERE CLASSIFIED (4) CKD (chronic kidney disease) Assessment/Plan: monitor renal on case Code(s): N18.9 - CHRONIC KIDNEY DISEASE, UNSPECIFIED (5) Anemia Assessment/Plan: CBC Code(s): D64.9 - ANEMIA, UNSPECIFIED Qualifiers: Anemia type: iron deficiency (6) Permanent atrial fibrillation Assessment/Plan: MONITOR ON MEDS Code(s): I48.2 - CHRONIC ATRIAL FIBRILLATION (7) S/P AVR (aortic valve replacement) Assessment/Plan: MONITOR INR COUMADIN Code(s): Z95.2 - PRESENCE OF PROSTHETIC HEART VALVE
--- NOTE | 2016-10-04 15:01 | PN ---
Progress Note, Physician Chief Complaint: Dyspnea persists with pedal edema Family by bedside concerned about disposition Transfer to [place] denied and canceled History of Present Illness: Patient was seen and examined. Awake and alert. Chart was reviewed Denies chest pain or palpitations Dyspnea intermittently Pedal edema persists Currently DNR/DNI, social work input as to her options. Patient does not want home hospice - Current Medication List Current Medications: Active Medications Acetaminophen (Tylenol -) 650 mg PO Q6H PRN PRN Reason: FEVER OR PAIN Albuterol Sulfate (Ventolin 0.083% Nebulizer Soln -) 1 amp NEB Q4H PRN PRN Reason: SHORT OF BREATH/WHEEZING Last Admin: 10/04/16 10:41 Dose: 1 amp Bacitracin (Bacitracin -) 1 applic TP BID [facility] Last Admin: 10/04/16 11:06 Dose: 1 applic Benzocaine (Anbesol -) 1 applic MM Q2H PRN PRN Reason: ORAL PAIN/MOUTH SORES Ferrous Sulfate (Feosol -) 325 mg PO BIDWM [facility] Last Admin: 10/04/16 11:04 Dose: 325 mg Furosemide (Lasix -) 40 mg PO DAILY@0600 [facility] Last Admin: 10/04/16 06:36 Dose: 40 mg Losartan Potassium (Cozaar -) 25 mg PO DAILY [facility] Last Admin: 10/04/16 11:04 Dose: 25 mg Difluprednate ( Durezol) 0.05% Opth Drops - Pt's Own 1 each OD BID [facility] Last Admin: 10/04/16 11:05 Dose: 1 each Nystatin (Nystatin Oral Suspension -) 500,000 units PO TID [facility] Last Admin: 10/04/16 13:28 Dose: 500,000 units Pantoprazole Sodium (Protonix -) 40 mg PO BID [facility] Last Admin: 10/04/16 11:05 Dose: 40 mg Spironolactone (Aldactone -) 25 mg PO BID [facility] Last Admin: 10/04/16 11:04 Dose: 25 mg Warfarin Sodium (Coumadin -) 2 mg PO DAILY@1800 [facility] Last Admin: 10/03/16 17:35 Dose: 2 mg Zolpidem Tartrate (Ambien -) 7.5 mg PO HS PRN Last Admin: 10/03/16 22:30 Dose: 7.5 mg - Objective Vital Signs: Vital Signs Temperature 97.7 F 10/04/16 14:00 Pulse Rate 81 10/04/16 14:00 Respiratory Rate 20 10/04/16 14:00 Blood Pressure 130/52 10/04/16 14:00 O2 Sat by Pulse Oximetry (%) 100 10/04/16 10:41 Neck: Yes: Supple Cardiovascular: Yes: Regular Rate and Rhythm, Murmur (2/6 SM), S1, S2, Other ( Mechanical click) Respiratory: Yes: Diminished Gastrointestinal: Yes: Normal Bowel Sounds, Soft. No: Tenderness Edema: Yes Edema: LLE: 1+, RLE: 1+ Additional Findings/Remarks: Review of Systems Constitutional: denies: Chills Cardiovascular: reports: Shortness of Breath. denies: Chest Pain, Palpitations Respiratory: reports: SOB, SOB on Exertion. denies: Cough, Hemoptysis, Orthopnea, PND Gastrointestinal: denies: Abdominal Pain, Constipation, Diarrhea, denies: Melena , Nausea, Rectal Bleeding, Vomiting Musculoskeletal: denies: Joint Pain Neurological: denies: Dizziness, Headache, Seizure, Syncope Labs: CBC, BMP 10/04/16 10:40 10/02/16 06:00 INR, PTT INR 2.51 (0.82-1.09) H 10/04/16 06:00 Problem List - Problems (1) CHF (congestive heart failure) Code(s): I50.9 - HEART FAILURE, UNSPECIFIED Qualifiers: Congestive heart failure type: diastolic Congestive heart failure chronicity: acute on chronic Qualified Code(s): I50.33 - Acute on chronic diastolic (congestive) heart failure (2) Shortness of breath Code(s): R06.02 - SHORTNESS OF BREATH (3) S/P MVR (mitral valve replacement) Code(s): Z95.2 - PRESENCE OF PROSTHETIC HEART VALVE (4) Rheumatic heart disease Code(s): I09.9 - RHEUMATIC HEART DISEASE, UNSPECIFIED (5) S/P AVR (aortic valve replacement) Code(s): Z95.2 - PRESENCE OF PROSTHETIC HEART VALVE (7) Anemia Code(s): D64.9 - ANEMIA, UNSPECIFIED Qualifiers: Anemia type: iron deficiency (8) Hepatic cirrhosis Code(s): K74.60 - UNSPECIFIED CIRRHOSIS OF LIVER Qualifiers: Hepatic cirrhosis type: unspecified hepatic cirrhosis Ascites presence : without ascites Qualified Code(s): K74.60 - Unspecified cirrhosis of liver Assessment/Plan 1. 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 Severe pulmonary HTN 3. Post MVR and AVR (mechanical prosthesis) with history of rheumatic heart disease 4. Post TVR (Bio-prosthesis) 5. Permanent atrial fibrillation with slow ventricular response 6. History of hepatic cirrhosis 7. Acute on CKD 8. Anemia h/o AVM PLAN: 1. Continue Lasix and Aldactone 2. Continue Coumadin as per INR maintain 2.5-3.0 3. Continue Cozaar 4. Transfuse to maintain Hg equal or > 8.0 Further plans pending ?[facility] El[facility] Barroso MD
[2016-10-04] MEDS: WARFARIN NA 2 MG TABLET (UD) PO SCH (17:08)
[2016-10-04] MEDS: ZOLPIDEM TARTRATE 5 MG TABLET PO PRN (22:46)
[2016-10-05] MEDS: NYSTATIN 500,000 UNITS/5 ML SUSPENSION PO SCH ×3 (06:35→21:28)
[2016-10-05] MEDS: FUROSEMIDE 40 MG TABLET (FP) PO SCH (06:35)
[2016-10-05 07:44] LABS: ALBUMIN 3.3 g/dl (3.4-5.0); CALCIUM 8.7 mg/dL (8.5-10.1)
[2016-10-05 07:47] LABS: BILIRUBIN,TOTAL 0.9 mg/dL (0.2-1.0); CREATININE 1.4 mg/dL (0.55-1.02); TOT PROT 6.8 g/dl (6.4-8.2)
--- NOTE | 2016-10-05 08:58 | PN ---
Progress Note, Physician History of Present Illness: FAMILY AT BEDSIDE--THEY WANT IV MEDS--D/W THEM REGARDING CALVARY This am sitting up comfortable - Current Medication List Current Medications: Active Medications Acetaminophen (Tylenol -) 650 mg PO Q6H PRN PRN Reason: FEVER OR PAIN Albuterol Sulfate (Ventolin 0.083% Nebulizer Soln -) 1 amp NEB Q4H PRN PRN Reason: SHORT OF BREATH/WHEEZING Last Admin: 10/04/16 10:41 Dose: 1 amp Bacitracin (Bacitracin -) 1 applic TP BID [facility] Last Admin: 10/04/16 22:45 Dose: 1 applic Benzocaine (Anbesol -) 1 applic MM Q2H PRN PRN Reason: ORAL PAIN/MOUTH SORES Ferrous Sulfate (Feosol -) 325 mg PO BIDWM [facility] Last Admin: 10/04/16 17:08 Dose: 325 mg Furosemide (Lasix -) 40 mg PO DAILY@0600 [facility] Last Admin: 10/05/16 06:35 Dose: 40 mg Losartan Potassium (Cozaar -) 25 mg PO DAILY [facility] Last Admin: 10/04/16 11:04 Dose: 25 mg Difluprednate ( Durezol) 0.05% Opth Drops - Pt's Own 1 each OD BID [facility] Last Admin: 10/04/16 22:45 Dose: 1 each Nystatin (Nystatin Oral Suspension -) 500,000 units PO TID [facility] Last Admin: 10/05/16 06:35 Dose: 500,000 units Pantoprazole Sodium (Protonix -) 40 mg PO BID [facility] Last Admin: 10/04/16 22:45 Dose: 40 mg Spironolactone (Aldactone -) 25 mg PO BID [facility] Last Admin: 10/04/16 22:45 Dose: 25 mg Warfarin Sodium (Coumadin -) 2 mg PO DAILY@1800 [facility] Last Admin: 10/04/16 17:08 Dose: 2 mg Zolpidem Tartrate (Ambien -) 7.5 mg PO HS PRN Last Admin: 10/04/16 22:46 Dose: 7.5 mg - Objective Vital Signs: Vital Signs Temperature 98.1 F 10/05/16 06:48 Pulse Rate 87 10/05/16 06:48 Respiratory Rate 16 10/05/16 06:48 Blood Pressure 127/72 10/05/16 06:48 O2 Sat by Pulse Oximetry (%) 98 10/04/16 21:40 Cardiovascular: Yes: Murmur, S1, S2 Respiratory: Yes: On Nasal O2, Rales (at the bases) Edema: RLE: Trace Labs: CBC, BMP 10/04/16 10:40 10/05/16 06:00 INR, PTT INR 2.51 (0.82-1.09) H 10/04/16 06:00 Problem List - Problems (1) CHF (congestive heart failure) Assessment/Plan: diuretics monitor labs Code(s): I50.9 - HEART FAILURE, UNSPECIFIED Qualifiers: Congestive heart failure type: diastolic Congestive heart failure chronicity: acute on chronic Qualified Code(s): I50.33 - Acute on chronic diastolic (congestive) heart failure (2) Liver mass Code(s): R16.0 - HEPATOMEGALY, NOT ELSEWHERE CLASSIFIED (4) CKD (chronic kidney disease) Assessment/Plan: monitor renal on case Code(s): N18.9 - CHRONIC KIDNEY DISEASE, UNSPECIFIED (5) Anemia Assessment/Plan: CBC noted--dropping follow labs may need transfusion Code(s): D64.9 - ANEMIA, UNSPECIFIED Qualifiers: Anemia type: iron deficiency (6) Permanent atrial fibrillation Assessment/Plan: MONITOR ON MEDS Code(s): I48.2 - CHRONIC ATRIAL FIBRILLATION (7) S/P AVR (aortic valve replacement) Assessment/Plan: MONITOR INR COUMADIN INR, PTT INR 2.51 (0.82-1.09) H 10/04/16 06:00 Code(s): Z95.2 - PRESENCE OF PROSTHETIC HEART VALVE
[2016-10-05] MEDS: DIFLUPREDNATE 0.05% OD SCH ×2 (10:00→21:32)
[2016-10-05] MEDS: OPTH OD SCH ×2 (10:00→21:32)
[2016-10-05] MEDS: SPIRONOLACTONE 25 MG TABLET (FP) PO SCH ×2 (10:35→21:28)
[2016-10-05] MEDS: LOSARTAN POTASSIUM 50 MG TABLET (FP) PO SCH (10:35)
[2016-10-05] MEDS: BACITRACIN 30 GM TUBE TOPICAL OINTMENT TP SCH ×2 (10:35→21:33)
[2016-10-05] MEDS: PANTOPRAZOLE 40 MG TABLET (FP) PO SCH ×2 (10:36→21:28)
[2016-10-05] MEDS: FERROUS SO4 325 MG TABLET (FP) PO SCH ×2 (10:36→17:22)
--- NOTE | 2016-10-05 12:33 | PN ---
Progress Note (short form) - Note Progress Note: RENAL Pt seen and examined. She is awake and alert comfortable son was present Last Vital Signs Temp Pulse Resp BP Pulse Ox 98.1 F 87 16 127/72 97 10/05/16 06:48 10/05/16 06:48 10/05/16 09:00 10/05/16 06:48 10/05/16 09:00 lungs decreased breath sounds at bases cvs s1s2 rr has systolic and diastolic components to her murmur abd osft ext Bilat lower ext edema neuro a+ox3 CBC, BMP 10/04/16 10:40 10/05/16 06:00 Current Medications Generic Name Dose Route Start Last Admin Trade Name Freq PRN Reason Stop Dose Admin Acetaminophen 650 mg 09/26/16 07:48 Tylenol - PO Q6H PRN FEVER OR PAIN Albuterol Sulfate 1 amp 10/02/16 10:36 10/04/16 10:41 Ventolin 0.083% Nebulizer Soln - NEB 1 amp Q4H PRN Administration SHORT OF BREATH/WHEEZING Bacitracin 1 applic 09/26/16 10:00 10/05/16 10:35 Bacitracin - TP 1 applic BID [facility] Administration Benzocaine 1 applic 10/03/16 14:00 Anbesol - MM Q2H PRN ORAL PAIN/MOUTH SORES Ferrous Sulfate 325 mg 09/26/16 08:15 10/05/16 10:36 Feosol - PO 325 mg BIDWM [facility] Administration Furosemide 40 mg 10/04/16 06:00 10/05/16 06:35 Lasix - PO 40 mg DAILY@0600 [facility] Administration Losartan Potassium 25 mg 09/26/16 10:00 10/05/16 10:35 Cozaar - PO 25 mg DAILY [facility] Administration Difluprednate ( 1 each 09/26/16 10:00 10/04/16 22:45 Durezol) 0.05% Opth OD 1 each Drops - Pt's Own BID [facility] Administration Nystatin 500,000 units 10/03/16 22:00 10/05/16 06:35 Nystatin Oral Suspension - PO 500,000 units TID [facility] Administration Pantoprazole Sodium 40 mg 09/26/16 22:00 10/05/16 10:36 Protonix - PO 40 mg BID [facility] Administration Spironolactone 25 mg 09/30/16 22:00 10/05/16 10:35 Aldactone - PO 25 mg BID [facility] Administration Warfarin Sodium 2 mg 10/03/16 18:00 10/04/16 17:08 Coumadin - PO 2 mg DAILY@1800 [facility] Administration Zolpidem Tartrate 7.5 mg 09/29/16 22:27 10/04/16 22:46 Ambien - PO 7.5 mg HS PRN Administration Impression 1. RADHA- stable 2. aortic valve replacement 3. mitral valve replacement 4. tricuspid valve replacement 5. CHF 6. a-fib 7. anemia 8. hx GI bleed 9. HTN 10. liver cirrhosis 11. CKD- renal function stable Plan - cont current meds - possible home hospice - ?addition of small dose of diamox given rise in bicarb MV
[2016-10-05 13:03] LABS: INR 2.8 (0.82-1.09); PROTHROMBIN TIME (PATIENT) 31.4 SEC (9.98-11.88)
--- NOTE | 2016-10-05 16:48 | PN ---
Progress Note, Physician Chief Complaint: Dyspnea persists with pedal edema History of Present Illness: Patient was seen and examined. Awake and alert. Chart was reviewed Denies chest pain or palpitations Dyspnea intermittently Pedal edema persists Currently DNR/DNI - Current Medication List Current Medications: Active Medications Acetaminophen (Tylenol -) 650 mg PO Q6H PRN PRN Reason: FEVER OR PAIN Albuterol Sulfate (Ventolin 0.083% Nebulizer Soln -) 1 amp NEB Q4H PRN PRN Reason: SHORT OF BREATH/WHEEZING Last Admin: 10/04/16 10:41 Dose: 1 amp Bacitracin (Bacitracin -) 1 applic TP BID [facility] Last Admin: 10/05/16 10:35 Dose: 1 applic Benzocaine (Anbesol -) 1 applic MM Q2H PRN PRN Reason: ORAL PAIN/MOUTH SORES Ferrous Sulfate (Feosol -) 325 mg PO BIDWM [facility] Last Admin: 10/05/16 10:36 Dose: 325 mg Furosemide (Lasix -) 40 mg PO DAILY@0600 [facility] Last Admin: 10/05/16 06:35 Dose: 40 mg Losartan Potassium (Cozaar -) 25 mg PO DAILY [facility] Last Admin: 10/05/16 10:35 Dose: 25 mg Difluprednate ( Durezol) 0.05% Opth Drops - Pt's Own 1 each OD BID [facility] Last Admin: 10/05/16 10:00 Dose: 1 each Nystatin (Nystatin Oral Suspension -) 500,000 units PO TID [facility] Last Admin: 10/05/16 14:28 Dose: 500,000 units Pantoprazole Sodium (Protonix -) 40 mg PO BID [facility] Last Admin: 10/05/16 10:36 Dose: 40 mg Spironolactone (Aldactone -) 25 mg PO BID [facility] Last Admin: 10/05/16 10:35 Dose: 25 mg Warfarin Sodium (Coumadin -) 2 mg PO DAILY@1800 [facility] Last Admin: 10/04/16 17:08 Dose: 2 mg Zolpidem Tartrate (Ambien -) 7.5 mg PO HS PRN Last Admin: 10/04/16 22:46 Dose: 7.5 mg - Objective Vital Signs: Vital Signs Temperature 97.8 F 10/05/16 15:15 Pulse Rate 89 10/05/16 15:15 Respiratory Rate 20 10/05/16 15:15 Blood Pressure 133/52 10/05/16 15:15 O2 Sat by Pulse Oximetry (%) 97 10/05/16 09:00 Cardiovascular: Yes: Regular Rate and Rhythm, Murmur (2/6 SM), S1, S2, Other ( Mechanical click) Respiratory: Yes: Diminished Gastrointestinal: Yes: Normal Bowel Sounds, Soft. No: Tenderness Edema: Yes Edema: LLE: 1+, RLE: 1+ Additional Findings/Remarks: Review of Systems Constitutional: denies: Chills Cardiovascular: reports: Shortness of Breath. denies: Chest Pain, Palpitations Respiratory: reports: SOB, SOB on Exertion. denies: Cough, Hemoptysis, Orthopnea, PND Gastrointestinal: denies: Abdominal Pain, Constipation, Diarrhea, denies: Melena , Nausea, Rectal Bleeding, Vomiting Musculoskeletal: denies: Joint Pain Neurological: denies: Dizziness, Headache, Seizure, Syncope Labs: CBC, BMP 10/04/16 10:40 10/05/16 06:00 INR, PTT INR 2.80 (0.82-1.09) H 10/05/16 12:35 Problem List - Problems (1) CHF (congestive heart failure) Code(s): I50.9 - HEART FAILURE, UNSPECIFIED Qualifiers: Congestive heart failure type: diastolic Congestive heart failure chronicity: acute on chronic Qualified Code(s): I50.33 - Acute on chronic diastolic (congestive) heart failure (2) Shortness of breath Code(s): R06.02 - SHORTNESS OF BREATH (3) S/P MVR (mitral valve replacement) Code(s): Z95.2 - PRESENCE OF PROSTHETIC HEART VALVE (4) Rheumatic heart disease Code(s): I09.9 - RHEUMATIC HEART DISEASE, UNSPECIFIED (5) S/P AVR (aortic valve replacement) Code(s): Z95.2 - PRESENCE OF PROSTHETIC HEART VALVE (7) Anemia Code(s): D64.9 - ANEMIA, UNSPECIFIED Qualifiers: Anemia type: iron deficiency (8) Hepatic cirrhosis Code(s): K74.60 - UNSPECIFIED CIRRHOSIS OF LIVER Qualifiers: Hepatic cirrhosis type: unspecified hepatic cirrhosis Ascites presence : without ascites Qualified Code(s): K74.60 - Unspecified cirrhosis of liver Assessment/Plan 1. 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 Severe pulmonary HTN 3. Post MVR and AVR (mechanical prosthesis) with history of rheumatic heart disease 4. Post TVR (Bio-prosthesis) 5. Permanent atrial fibrillation with slow ventricular response 6. History of hepatic cirrhosis 7. Acute on CKD 8. Anemia h/o AVM PLAN: 1. Continue Lasix and Aldactone 2. Continue Coumadin as per INR maintain 2.5-3.0 3. Continue Cozaar 4. Transfuse as needed Further plans pending ?[facility] El[facility] Barroso MD
[2016-10-05] MEDS: WARFARIN NA 2 MG TABLET (UD) PO SCH (17:22)
[2016-10-06] MEDS: FUROSEMIDE 40 MG TABLET (FP) PO SCH (05:50)
[2016-10-06] MEDS: NYSTATIN 500,000 UNITS/5 ML SUSPENSION PO SCH ×3 (05:50→23:01)
[2016-10-06] MEDS: PANTOPRAZOLE 40 MG TABLET (FP) PO SCH ×2 (09:18→23:02)
[2016-10-06] MEDS: DIFLUPREDNATE 0.05% OD SCH (09:19)
[2016-10-06] MEDS: FERROUS SO4 325 MG TABLET (FP) PO SCH ×2 (09:19→18:07)
[2016-10-06] MEDS: LOSARTAN POTASSIUM 50 MG TABLET (FP) PO SCH (09:19)
[2016-10-06] MEDS: OPTH OD SCH (09:19)
[2016-10-06] MEDS: BACITRACIN 30 GM TUBE TOPICAL OINTMENT TP SCH ×2 (09:19→23:02)
[2016-10-06] MEDS: SPIRONOLACTONE 25 MG TABLET (FP) PO SCH ×2 (09:19→23:02)
[2016-10-06] MEDS ORDERED: oxyCODONE HCL 5 MG TABLET PO PRN (10:04)
--- NOTE | 2016-10-06 10:07 | PN ---
Progress Note, Physician History of Present Illness: PULMONARY ALERT,DYSPNEIC AT REST,O2 SAT 85% ON NASAL O2 - Current Medication List Current Medications: Active Medications Acetaminophen (Tylenol -) 650 mg PO Q6H PRN PRN Reason: FEVER OR PAIN Albuterol Sulfate (Ventolin 0.083% Nebulizer Soln -) 1 amp NEB Q4H PRN PRN Reason: SHORT OF BREATH/WHEEZING Last Admin: 10/04/16 10:41 Dose: 1 amp Bacitracin (Bacitracin -) 1 applic TP BID [facility] Last Admin: 10/06/16 09:19 Dose: 1 applic Benzocaine (Anbesol -) 1 applic MM Q2H PRN PRN Reason: ORAL PAIN/MOUTH SORES Ferrous Sulfate (Feosol -) 325 mg PO BIDWM [facility] Last Admin: 10/06/16 09:19 Dose: 325 mg Furosemide (Lasix -) 40 mg PO DAILY@0600 [facility] Last Admin: 10/06/16 05:50 Dose: 40 mg Losartan Potassium (Cozaar -) 25 mg PO DAILY [facility] Last Admin: 10/06/16 09:19 Dose: 25 mg Difluprednate ( Durezol) 0.05% Opth Drops - Pt's Own 1 each OD BID [facility] Last Admin: 10/06/16 09:19 Dose: Not Given Nystatin (Nystatin Oral Suspension -) 500,000 units PO TID [facility] Last Admin: 10/06/16 05:50 Dose: 500,000 units Pantoprazole Sodium (Protonix -) 40 mg PO BID [facility] Last Admin: 10/06/16 09:18 Dose: 40 mg Spironolactone (Aldactone -) 25 mg PO BID [facility] Last Admin: 10/06/16 09:19 Dose: 25 mg Warfarin Sodium (Coumadin -) 2 mg PO DAILY@1800 [facility] Last Admin: 10/05/16 17:22 Dose: 2 mg Zolpidem Tartrate (Ambien -) 7.5 mg PO [facility] - Objective Vital Signs: Vital Signs Temperature 98.2 F 10/06/16 06:00 Pulse Rate 53 L 10/06/16 09:33 Respiratory Rate 16 10/06/16 06:00 Blood Pressure 133/87 10/06/16 06:00 O2 Sat by Pulse Oximetry (%) 99 01/02/17 09:33 Constitutional: Yes: Calm, Thin Eyes: Yes: WNL HENT: Yes: WNL Neck: Yes: Supple Cardiovascular: Yes: Pulse Irregular, S1, S2 Respiratory: Yes: Rales Gastrointestinal: Yes: WNL Extremities: Yes: WNL Edema: Yes Labs: CBC, BMP 10/04/16 10:40 10/05/16 06:00 INR, PTT INR 2.80 (0.82-1.09) H 10/05/16 12:35 Problem List - Problems (1) RADHA (acute kidney injury) Code(s): N17.9 - ACUTE KIDNEY FAILURE, UNSPECIFIED (2) Anemia Code(s): D64.9 - ANEMIA, UNSPECIFIED Qualifiers: Anemia type: iron deficiency (3) CHF (congestive heart failure) Code(s): I50.9 - HEART FAILURE, UNSPECIFIED Qualifiers: Congestive heart failure type: diastolic Congestive heart failure chronicity: acute on chronic Qualified Code(s): I50.33 - Acute on chronic diastolic (congestive) heart failure (4) Cholelithiasis Code(s): K80.20 - CALCULUS OF GALLBLADDER W/O CHOLECYSTITIS W/O OBSTRUCTION Qualifiers: Cholelithiasis location: gallbladder Cholecystitis presence: without cholecystitis Biliary obstruction: without biliary obstruction Qualified Code(s): K80.20 - Calculus of gallbladder without cholecystitis without obstruction (5) Elevated serum creatinine Code(s): R79.89 - OTHER SPECIFIED ABNORMAL FINDINGS OF BLOOD CHEMISTRY (6) Hepatic cirrhosis Code(s): K74.60 - UNSPECIFIED CIRRHOSIS OF LIVER Qualifiers: Hepatic cirrhosis type: unspecified hepatic cirrhosis Ascites presence : without ascites Qualified Code(s): K74.60 - Unspecified cirrhosis of liver (7) Rheumatic heart disease Code(s): I09.9 - RHEUMATIC HEART DISEASE, UNSPECIFIED (8) S/P AVR (aortic valve replacement) Code(s): Z95.2 - PRESENCE OF PROSTHETIC HEART VALVE (9) S/P MVR (mitral valve replacement) Code(s): Z95.2 - PRESENCE OF PROSTHETIC HEART VALVE (11) Shortness of breath Code(s): R06.02 - SHORTNESS OF BREATH Assessment/Plan ASSESSMENT AND PLAN: Acute on Chronic LV Diastolic Heart Failure/Right Heart Failure Pulmonary HTN s/p AVR/MVR Atrial Fibrillation Liver Cirrhosis Likely HCC GI Bleed stable Anemia h/o AVM acute on chronic renal failure - continue lasix, aldactone - monitor urine output, creatinine - daily weights, I/Os - monitor H/H - continue protonix - continue anticoagulation - O2 to keep SpO2 >90% - comfort care - prognosis poor DR BOUCHER
--- NOTE | 2016-10-06 10:08 | PN ---
Progress Note, Physician Chief Complaint: AWAKE ALERT, COMFORTABLE LABORED BREATHING ON - Current Medication List Current Medications: Active Medications Acetaminophen (Tylenol -) 650 mg PO Q6H PRN PRN Reason: FEVER OR PAIN Albuterol Sulfate (Ventolin 0.083% Nebulizer Soln -) 1 amp NEB Q4H PRN PRN Reason: SHORT OF BREATH/WHEEZING Last Admin: 10/04/16 10:41 Dose: 1 amp Bacitracin (Bacitracin -) 1 applic TP BID [facility] Last Admin: 10/06/16 09:19 Dose: 1 applic Benzocaine (Anbesol -) 1 applic MM Q2H PRN PRN Reason: ORAL PAIN/MOUTH SORES Docusate Sodium (Colace -) 100 mg PO DAILY [facility] Ferrous Sulfate (Feosol -) 325 mg PO BIDWM [facility] Last Admin: 10/06/16 09:19 Dose: 325 mg Furosemide (Lasix -) 40 mg PO DAILY@0600 [facility] Last Admin: 10/06/16 05:50 Dose: 40 mg Losartan Potassium (Cozaar -) 25 mg PO DAILY [facility] Last Admin: 10/06/16 09:19 Dose: 25 mg Difluprednate ( Durezol) 0.05% Opth Drops - Pt's Own 1 each OD BID [facility] Last Admin: 10/06/16 09:19 Dose: Not Given Nystatin (Nystatin Oral Suspension -) 500,000 units PO TID [facility] Last Admin: 10/06/16 05:50 Dose: 500,000 units Oxycodone HCl (Roxicodone -) 5 mg PO Q4H PRN PRN Reason: PAIN Pantoprazole Sodium (Protonix -) 40 mg PO BID [facility] Last Admin: 10/06/16 09:18 Dose: 40 mg Spironolactone (Aldactone -) 25 mg PO BID [facility] Last Admin: 10/06/16 09:19 Dose: 25 mg Warfarin Sodium (Coumadin -) 2 mg PO DAILY@1800 [facility] Last Admin: 10/05/16 17:22 Dose: 2 mg Zolpidem Tartrate (Ambien -) 7.5 mg PO [facility] - Objective Vital Signs: Vital Signs Temperature 98.2 F 10/06/16 06:00 Pulse Rate 53 L 10/06/16 09:33 Respiratory Rate 16 10/06/16 06:00 Blood Pressure 133/87 01/02/17 06:00 O2 Sat by Pulse Oximetry (%) 99 10/06/16 09:33 Constitutional: Yes: Mild Distress Eyes: Yes: WNL HENT: Yes: WNL Neck: Yes: WNL Cardiovascular: Yes: Murmur Respiratory: Yes: On Nasal O2, Rales, SOB, SOB on Exertion Gastrointestinal: Yes: WNL Genitourinary: Yes: WNL Musculoskeletal: Yes: Muscle Pain Extremities: Yes: WNL Peripheral Pulses WNL: Yes Integumentary: Yes: WNL Wound/Incision: Yes: Clean/Dry Neurological: Yes: Unsteady Gait, Weakness ...Motor Strength: LLE, RLE Psychiatric: Yes: Other Labs: CBC, BMP 10/04/16 10:40 10/05/16 06:00 INR, PTT INR 2.80 (0.82-1.09) H 10/05/16 12:35 Problem List - Problems (1) Anemia Code(s): D64.9 - ANEMIA, UNSPECIFIED (2) CHF (congestive heart failure) Code(s): I50.9 - HEART FAILURE, UNSPECIFIED Qualifiers: Qualified Code(s): I50.33 - Acute on chronic diastolic (congestive) heart failure (3) Elevated serum creatinine Code(s): R79.89 - OTHER SPECIFIED ABNORMAL FINDINGS OF BLOOD CHEMISTRY (4) Hepatic cirrhosis Code(s): K74.60 - UNSPECIFIED CIRRHOSIS OF LIVER Qualifiers: Qualified Code(s): K74.60 - Unspecified cirrhosis of liver (5) Rheumatic heart disease Code(s): I09.9 - RHEUMATIC HEART DISEASE, UNSPECIFIED (6) S/P AVR (aortic valve replacement) Code(s): Z95.2 - PRESENCE OF PROSTHETIC HEART VALVE (7) S/P MVR (mitral valve replacement) Code(s): Z95.2 - PRESENCE OF PROSTHETIC HEART VALVE (9) Shortness of breath Code(s): R06.02 - SHORTNESS OF BREATH Assessment/Plan DISCUSSED WITH FAMILY, EVENTS OVER WEEKEND REVIEWED [facility]IENT [facility] NO READMISSIONS, COMFORT CARE, NO BLOOD DRAWS EXCEPT FOR INR CHECKS ONLY. CONTINUE COUMADIN AND AMBIEN, 02 THERAPY AND PO LASIX
--- NOTE | 2016-10-06 11:11 | PN ---
Progress Note, Physician Chief Complaint: Dyspnea persists with pedal edema History of Present Illness: Patient was seen and examined. Awake and alert. Chart was reviewed Denies chest pain or palpitations Dyspnea intermittently Pedal edema persists Currently DNR/DNI. Dr Dimas's input and patient and family wishes noted - Current Medication List Current Medications: Active Medications Acetaminophen (Tylenol -) 650 mg PO Q6H PRN PRN Reason: FEVER OR PAIN Albuterol Sulfate (Ventolin 0.083% Nebulizer Soln -) 1 amp NEB Q4H PRN PRN Reason: SHORT OF BREATH/WHEEZING Last Admin: 10/04/16 10:41 Dose: 1 amp Bacitracin (Bacitracin -) 1 applic TP BID [facility] Last Admin: 10/06/16 09:19 Dose: 1 applic Benzocaine (Anbesol -) 1 applic MM Q2H PRN PRN Reason: ORAL PAIN/MOUTH SORES Docusate Sodium (Colace -) 100 mg PO DAILY [facility] Ferrous Sulfate (Feosol -) 325 mg PO BIDWM [facility] Last Admin: 10/06/16 09:19 Dose: 325 mg Furosemide (Lasix -) 40 mg PO DAILY@0600 [facility] Last Admin: 10/06/16 05:50 Dose: 40 mg Losartan Potassium (Cozaar -) 25 mg PO DAILY [facility] Last Admin: 10/06/16 09:19 Dose: 25 mg Difluprednate ( Durezol) 0.05% Opth Drops - Pt's Own 1 each OD BID [facility] Last Admin: 10/06/16 09:19 Dose: Not Given Nystatin (Nystatin Oral Suspension -) 500,000 units PO TID [facility] Last Admin: 10/06/16 05:50 Dose: 500,000 units Oxycodone HCl (Roxicodone -) 5 mg PO Q4H PRN PRN Reason: PAIN Pantoprazole Sodium (Protonix -) 40 mg PO BID [facility] Last Admin: 10/06/16 09:18 Dose: 40 mg Spironolactone (Aldactone -) 25 mg PO BID [facility] Last Admin: 10/06/16 09:19 Dose: 25 mg Warfarin Sodium (Coumadin -) 2 mg PO DAILY@1800 [facility] Last Admin: 10/05/16 17:22 Dose: 2 mg Zolpidem Tartrate (Ambien -) 7.5 mg PO HS PRN - Objective Vital Signs: Vital Signs Temperature 98.2 F 10/06/16 06:00 Pulse Rate 53 L 10/06/16 09:33 Respiratory Rate 16 10/06/16 06:00 Blood Pressure 133/87 10/06/16 06:00 O2 Sat by Pulse Oximetry (%) 99 10/06/16 09:33 Neck: Yes: Supple Cardiovascular: Yes: Regular Rate and Rhythm, Murmur (2/6 SM), S1, S2, Other ( Mechanical click) Respiratory: Yes: Diminished Gastrointestinal: Yes: Normal Bowel Sounds, Soft. No: Tenderness Edema: Yes Edema: LLE: 1+, RLE: 1+ Additional Findings/Remarks: Review of Systems Constitutional: denies: Chills Cardiovascular: reports: Shortness of Breath. denies: Chest Pain, Palpitations Respiratory: reports: SOB, SOB on Exertion. denies: Cough, Hemoptysis, Orthopnea, PND Gastrointestinal: denies: Abdominal Pain, Constipation, Diarrhea, denies: Melena , Nausea, Rectal Bleeding, Vomiting Musculoskeletal: denies: Joint Pain Neurological: denies: Dizziness, Headache, Seizure, Syncope Problem List - Problems (1) CHF (congestive heart failure) Code(s): I50.9 - HEART FAILURE, UNSPECIFIED Qualifiers: Congestive heart failure type: diastolic Congestive heart failure chronicity: acute on chronic Qualified Code(s): I50.33 - Acute on chronic diastolic (congestive) heart failure (2) Shortness of breath Code(s): R06.02 - SHORTNESS OF BREATH (3) S/P MVR (mitral valve replacement) Code(s): Z95.2 - PRESENCE OF PROSTHETIC HEART VALVE (4) Rheumatic heart disease Code(s): I09.9 - RHEUMATIC HEART DISEASE, UNSPECIFIED (5) S/P AVR (aortic valve replacement) Code(s): Z95.2 - PRESENCE OF PROSTHETIC HEART VALVE (7) Anemia Code(s): D64.9 - ANEMIA, UNSPECIFIED Qualifiers: Anemia type: iron deficiency (8) Hepatic cirrhosis Code(s): K74.60 - UNSPECIFIED CIRRHOSIS OF LIVER Qualifiers: Hepatic cirrhosis type: unspecified hepatic cirrhosis Ascites presence : without ascites Qualified Code(s): K74.60 - Unspecified cirrhosis of liver Assessment/Plan 1. 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 Severe pulmonary HTN 3. Post MVR and AVR (mechanical prosthesis) with history of rheumatic heart disease 4. Post TVR (Bio-prosthesis) 5. Permanent atrial fibrillation with slow ventricular response 6. History of hepatic cirrhosis 7. Acute on CKD 8. Anemia h/o AVM PLAN: 1. Continue Lasix and Aldactone 2. Continue Coumadin as per INR maintain 2.5-3.0 3. Continue Cozaar Supportive care. Patient is DNR/DNI. Consider Hospice. Elio Barroso MD
[2016-10-06 11:29] LABS: INR 3.24 (0.82-1.09); PROTHROMBIN TIME (PATIENT) 36.5 SEC (9.98-11.88)
--- NOTE | 2016-10-06 13:47 | PN ---
Progress Note, Physician History of Present Illness: Pt seen and examined at bedside. She appears comfortable however she gets very SOB with minimal exertion. - Current Medication List Current Medications: Active Medications Acetaminophen (Tylenol -) 650 mg PO Q6H PRN PRN Reason: FEVER OR PAIN Albuterol Sulfate (Ventolin 0.083% Nebulizer Soln -) 1 amp NEB Q4H PRN PRN Reason: SHORT OF BREATH/WHEEZING Last Admin: 10/04/16 10:41 Dose: 1 amp Bacitracin (Bacitracin -) 1 applic TP BID [facility] Last Admin: 10/06/16 09:19 Dose: 1 applic Benzocaine (Anbesol -) 1 applic MM Q2H PRN PRN Reason: ORAL PAIN/MOUTH SORES Docusate Sodium (Colace -) 100 mg PO DAILY [facility] Ferrous Sulfate (Feosol -) 325 mg PO BIDWM [facility] Last Admin: 10/06/16 09:19 Dose: 325 mg Furosemide (Lasix -) 40 mg PO DAILY@0600 [facility] Last Admin: 10/06/16 05:50 Dose: 40 mg Losartan Potassium (Cozaar -) 25 mg PO DAILY [facility] Last Admin: 10/06/16 09:19 Dose: 25 mg Difluprednate ( Durezol) 0.05% Opth Drops - Pt's Own 1 each OD BID [facility] Last Admin: 10/06/16 09:19 Dose: Not Given Nystatin (Nystatin Oral Suspension -) 500,000 units PO TID [facility] Last Admin: 10/06/16 13:34 Dose: 500,000 units Oxycodone HCl (Roxicodone -) 5 mg PO Q4H PRN PRN Reason: PAIN Pantoprazole Sodium (Protonix -) 40 mg PO BID [facility] Last Admin: 10/06/16 09:18 Dose: 40 mg Spironolactone (Aldactone -) 25 mg PO BID [facility] Last Admin: 10/06/16 09:19 Dose: 25 mg Warfarin Sodium (Coumadin -) 2 mg PO DAILY@1800 [facility] Last Admin: 10/05/16 17:22 Dose: 2 mg Zolpidem Tartrate (Ambien -) 7.5 mg PO HS PRN - Objective Vital Signs: Vital Signs Temperature 97.9 F 10/06/16 10:00 Pulse Rate 87 10/06/16 10:00 Respiratory Rate 18 10/06/16 10:00 Blood Pressure 109/63 10/06/16 10:00 O2 Sat by Pulse Oximetry (%) 99 10/06/16 09:33 Constitutional: Yes: Calm Eyes: Yes: Conjunctiva Clear HENT: Yes: Atraumatic Cardiovascular: Yes: Murmur, S1, S2 Respiratory: Yes: Diminished, On Nasal O2 Genitourinary: Yes: WNL Musculoskeletal: Yes: Muscle Weakness Edema: Yes Edema: LLE: 2+, RLE: 2+ Neurological: Yes: Oriented Psychiatric: Yes: Oriented Labs: CBC, BMP 10/04/16 10:40 10/05/16 06:00 INR, PTT INR 3.24 (0.82-1.09) H 10/06/16 10:35 Problem List - Problems (1) Anemia Code(s): D64.9 - ANEMIA, UNSPECIFIED Qualifiers: Anemia type: iron deficiency (2) CHF (congestive heart failure) Code(s): I50.9 - HEART FAILURE, UNSPECIFIED Qualifiers: Congestive heart failure type: diastolic Congestive heart failure chronicity: acute on chronic Qualified Code(s): I50.33 - Acute on chronic diastolic (congestive) heart failure (3) Cholelithiasis Code(s): K80.20 - CALCULUS OF GALLBLADDER W/O CHOLECYSTITIS W/O OBSTRUCTION Qualifiers: Cholelithiasis location: gallbladder Cholecystitis presence: without cholecystitis Biliary obstruction: without biliary obstruction Qualified Code(s): K80.20 - Calculus of gallbladder without cholecystitis without obstruction (4) Hepatic cirrhosis Code(s): K74.60 - UNSPECIFIED CIRRHOSIS OF LIVER Qualifiers: Hepatic cirrhosis type: unspecified hepatic cirrhosis Ascites presence : without ascites Qualified Code(s): K74.60 - Unspecified cirrhosis of liver (5) S/P AVR (aortic valve replacement) Code(s): Z95.2 - PRESENCE OF PROSTHETIC HEART VALVE (6) S/P MVR (mitral valve replacement) Code(s): Z95.2 - PRESENCE OF PROSTHETIC HEART VALVE (8) Shortness of breath Code(s): R06.02 - SHORTNESS OF BREATH (9) RADHA (acute kidney injury) Code(s): N17.9 - ACUTE KIDNEY FAILURE, UNSPECIFIED Assessment/Plan Current Medications Generic Name Dose Route Start Last Admin Trade Name Freq PRN Reason Stop Dose Admin Acetaminophen 650 mg 09/26/16 07:48 Tylenol - PO Q6H PRN FEVER OR PAIN Albuterol Sulfate 1 amp 10/02/16 10:36 10/04/16 10:41 Ventolin 0.083% Nebulizer Soln - NEB 1 amp Q4H PRN Administration SHORT OF BREATH/WHEEZING Bacitracin 1 applic 09/26/16 10:00 10/06/16 09:19 Bacitracin - TP 1 applic BID [facility] Administration Benzocaine 1 applic 10/03/16 14:00 Anbesol - MM Q2H PRN ORAL PAIN/MOUTH SORES Docusate Sodium 100 mg 10/07/16 10:00 Colace - PO DAILY [facility] Ferrous Sulfate 325 mg 09/26/16 08:15 10/06/16 09:19 Feosol - PO 325 mg BIDWM [facility] Administration Furosemide 40 mg 10/04/16 06:00 10/06/16 05:50 Lasix - PO 40 mg DAILY@0600 [facility] Administration Losartan Potassium 25 mg 09/26/16 10:00 10/06/16 09:19 Cozaar - PO 25 mg DAILY [facility] Administration Difluprednate ( 1 each 09/26/16 10:00 10/06/16 09:19 Durezol) 0.05% Opth OD Not Given Drops - Pt's Own BID [facility] Nystatin 500,000 units 10/03/16 22:00 10/06/16 13:34 Nystatin Oral Suspension - PO 500,000 units TID [facility] Administration Oxycodone HCl 5 mg 10/06/16 10:04 Roxicodone - PO Q4H PRN PAIN Pantoprazole Sodium 40 mg 09/26/16 22:00 10/06/16 09:18 Protonix - PO 40 mg BID [facility] Administration Spironolactone 25 mg 09/30/16 22:00 10/06/16 09:19 Aldactone - PO 25 mg BID [facility] Administration Warfarin Sodium 2 mg 10/03/16 18:00 10/05/16 17:22 Coumadin - PO 2 mg DAILY@1800 [facility] Administration Zolpidem Tartrate 7.5 mg 10/06/16 22:00 Ambien - PO HS PRN Impression 1. RADHA 2. aortic valve replacement 3. mitral valve replacement 4. tricuspid valve replacement 5. CHF 6. a-fib 7. anemia 8. hx GI bleed 9. HTN 10. liver cirrhosis 11. CKD Plan - primary input appreciated - comfort care - spoke to pts daughter as well - cont current treatment - will follow PRN Dr Bo
[2016-10-06] MEDS: WARFARIN NA 2 MG TABLET (UD) PO SCH (18:03)
[2016-10-06] MEDS: ZOLPIDEM TARTRATE 5 MG TABLET PO PRN (23:03)
[2016-10-07] MEDS: FUROSEMIDE 40 MG TABLET (FP) PO SCH (06:27)
[2016-10-07] MEDS: NYSTATIN 500,000 UNITS/5 ML SUSPENSION PO SCH ×3 (06:27→21:54)
--- NOTE | 2016-10-07 08:27 | PN ---
Progress Note (short form) - Note Progress Note: Chief Complaint: Events noted, notes reviewed. Dyspnea and edema persists, denies any chest pain History of Present Illness: Seen and examined on telemetry. Events noted, notes reviewed. Dyspnea and edema persists, denies any chest pain Plan to transfer to SNF for palliative care Patient is post AVR and MVR (mechanical valves), post TVR and persistent AF that necessitates A/C utilization indefinitely Echocardiography dated 09/09/2016 revealed normal LV size and function with mild concentric LVH, severe bi-atrial enlargement, mechanical AVR, MVR, Bio- prosthetic TV, moderate TR with RVSP >60 mmHg Echocardiography dated 03/22/2015 revealed preserved LV function with mild concentric LVH, severe bi-atrial dilatation, mechanical MV and AV prosthesis, TV bio-prosthetic, moderate to severe MR, moderate TR with severe pulmonary HTN RVSP of 67 mHg - Current Medication List Current Medications Acetaminophen (Tylenol -) 650 mg PO Q6H PRN PRN Reason: FEVER OR PAIN Albuterol Sulfate (Ventolin 0.083% Nebulizer Soln -) 1 amp NEB Q4H PRN PRN Reason: SHORT OF BREATH/WHEEZING Last Admin: 10/04/16 10:41 Dose: 1 amp Bacitracin (Bacitracin -) 1 applic TP BID [facility] Last Admin: 10/06/16 23:02 Dose: 1 applic Benzocaine (Anbesol -) 1 applic MM Q2H PRN PRN Reason: ORAL PAIN/MOUTH SORES Docusate Sodium (Colace -) 100 mg PO DAILY [facility] Ferrous Sulfate (Feosol -) 325 mg PO BIDWM [facility] Last Admin: 10/06/16 18:07 Dose: 325 mg Furosemide (Lasix -) 40 mg PO DAILY@0600 [facility] Last Admin: 10/07/16 06:27 Dose: 40 mg Losartan Potassium (Cozaar -) 25 mg PO DAILY [facility] Last Admin: 10/06/16 09:19 Dose: 25 mg Difluprednate ( Durezol) 0.05% Opth Drops - Pt's Own 1 each OD BID [facility] Last Admin: 10/06/16 09:19 Dose: Not Given Nystatin (Nystatin Oral Suspension -) 500,000 units PO TID [facility] Last Admin: 10/07/16 06:27 Dose: 500,000 units Oxycodone HCl (Roxicodone -) 5 mg PO Q4H PRN PRN Reason: PAIN Pantoprazole Sodium (Protonix -) 40 mg PO BID [facility] Last Admin: 10/06/16 23:02 Dose: 40 mg Spironolactone (Aldactone -) 25 mg PO BID [facility] Last Admin: 10/06/16 23:02 Dose: 25 mg Warfarin Sodium (Coumadin -) 2 mg PO DAILY@1800 [facility] Last Admin: 10/06/16 18:03 Dose: Not Given Zolpidem Tartrate (Ambien -) 7.5 mg PO HS PRN Last Admin: 10/06/16 23:03 Dose: 7.5 mg Review of Systems Cardiovascular: As noted above Respiratory: denies: Cough or Sputum Production Gastrointestinal: denies: Nausea, Vomiting, Diarrhea, Constipation or Abdominal Discomfort Musculoskeletal: No Symptoms Reported Endocrine: No Symptoms Reported - Objective Vital Signs: Last Vital Signs Temp Pulse Resp BP Pulse Ox 97 F L 84 20 109/59 99 10/07/16 05:46 10/07/16 05:46 10/07/16 05:46 10/07/16 05:46 10/06/16 21:00 Constitutional: No Distress, Calm Neck: Supple positive JVD No bruit Respiratory: Diminished Breath Sounds at the Bases Bilaterally with Basal Rales Cardiovascular: Mechanical Clicks Irregularly irregular Grade 2-3/6 Systolic Gastrointestinal: Soft Benign Normal Bowel Sounds Ext: Bilateral Edema with Bilateral Venous Stasis Changes Labs: CBC, BMP 10/04/16 10:40 10/05/16 06:00 Hepatic Panel Total Bilirubin 0.9 mg/dL (0.2-1.0) 10/05/16 06:00 AST 160 U/L (15-37) H 10/05/16 06:00 ALT 63 U/L (12-78) 10/05/16 06:00 Alkaline Phosphatase 159 U/L (45-117) H 10/05/16 06:00 Albumin 3.3 g/dl (3.4-5.0) L 10/05/16 06:00 INR, PTT INR 3.24 (0.82-1.09) H 10/06/16 10:35 Assessment/Plan ASSESSMENT: 1. 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 Severe pulmonary HTN related to above 3. Post MVR and AVR (mechanical prosthesis) with history of rheumatic heart disease 4. Post TVR (Bio-prosthesis) 5. Permanent atrial fibrillation with slow ventricular response, asymptomatic 6. History of hepatic cirrhosis 7. Acute on CKD 8. Anemia 9. Chronic liver disease/cirrhosis PLAN: 1. Continue PO Lasix 2. Continue Aldactone 3. Continue Coumadin as per INR maintain 2.5-3.5 with close monitoring of H/H, maintaining Hg equal or >8.0 4. Continue Cozaar 5. Overall poor prognosis with refractory LV/RV failure for palliative care as outlined above Rose Godoy M.D.
[2016-10-07] MEDS: SPIRONOLACTONE 25 MG TABLET (FP) PO SCH ×2 (09:34→21:54)
[2016-10-07] MEDS: FERROUS SO4 325 MG TABLET (FP) PO SCH ×2 (09:34→18:40)
[2016-10-07] MEDS: DOCUSATE SODIUM 100 MG CAPSULE (FP) PO SCH (09:34)
[2016-10-07] MEDS: PANTOPRAZOLE 40 MG TABLET (FP) PO SCH ×2 (09:34→21:54)
[2016-10-07] MEDS: BACITRACIN 30 GM TUBE TOPICAL OINTMENT TP SCH ×2 (09:35→21:55)
[2016-10-07] MEDS: LOSARTAN POTASSIUM 50 MG TABLET (FP) PO SCH (09:35)
[2016-10-07] MEDS: OPTH OD SCH ×2 (09:35→21:54)
[2016-10-07] MEDS: DIFLUPREDNATE 0.05% OD SCH ×2 (09:35→21:54)
[2016-10-07] MEDS: ALBUTEROL SO4 0.083% IH SOL 2.5 MG/3 ML VIAL.NEB. NEB PRN (09:54)
[2016-10-07 10:37] LABS: INR 2.98 (0.82-1.09); PROTHROMBIN TIME (PATIENT) 33.5 SEC (9.98-11.88)
--- NOTE | 2016-10-07 11:42 | PN ---
Progress Note, Physician History of Present Illness: PULMONARY ALERT,OOB-CHAIR ,LESS DYSPNEIC - Current Medication List Current Medications: Active Medications Acetaminophen (Tylenol -) 650 mg PO Q6H PRN PRN Reason: FEVER OR PAIN Bacitracin (Bacitracin -) 1 applic TP BID [facility] Last Admin: 10/07/16 09:35 Dose: 1 applic Benzocaine (Anbesol -) 1 applic MM Q2H PRN PRN Reason: ORAL PAIN/MOUTH SORES Docusate Sodium (Colace -) 100 mg PO DAILY [facility] Last Admin: 10/07/16 09:34 Dose: 100 mg Ferrous Sulfate (Feosol -) 325 mg PO BIDWM [facility] Last Admin: 10/07/16 09:34 Dose: 325 mg Furosemide (Lasix -) 40 mg PO DAILY@0600 [facility] Last Admin: 10/07/16 06:27 Dose: 40 mg Losartan Potassium (Cozaar -) 25 mg PO DAILY [facility] Last Admin: 10/07/16 09:35 Dose: 25 mg Difluprednate ( Durezol) 0.05% Opth Drops - Pt's Own 1 each OD BID [facility] Last Admin: 10/07/16 09:35 Dose: Not Given Nystatin (Nystatin Oral Suspension -) 500,000 units PO TID [facility] Last Admin: 10/07/16 06:27 Dose: 500,000 units Oxycodone HCl (Roxicodone -) 5 mg PO Q4H PRN PRN Reason: PAIN Pantoprazole Sodium (Protonix -) 40 mg PO BID [facility] Last Admin: 10/07/16 09:34 Dose: 40 mg Spironolactone (Aldactone -) 25 mg PO BID [facility] Last Admin: 10/07/16 09:34 Dose: 25 mg Warfarin Sodium (Coumadin -) 2 mg PO DAILY@1800 [facility] Last Admin: 10/06/16 18:03 Dose: Not Given Zolpidem Tartrate (Ambien -) 7.5 mg PO HS PRN Last Admin: 10/06/16 23:03 Dose: 7.5 mg - Objective Vital Signs: Vital Signs Temperature 97.7 F 10/07/16 10:00 Pulse Rate 79 10/07/16 10:00 Respiratory Rate 20 10/07/16 10:00 Blood Pressure 117/44 10/07/16 10:00 O2 Sat by Pulse Oximetry (%) 98 10/07/16 09:00 Constitutional: Yes: Calm, Thin Eyes: Yes: WNL HENT: Yes: WNL Neck: Yes: Supple Cardiovascular: Yes: Pulse Irregular, S1, S2 Respiratory: Yes: Rales (GISELLE CRACKLES) Gastrointestinal: Yes: Normal Bowel Sounds, Soft Edema: Yes Peripheral Pulses WNL: Yes Labs: CBC, BMP 10/04/16 10:40 10/05/16 06:00 INR, PTT INR 2.98 (0.82-1.09) H 10/07/16 10:10 Problem List - Problems (1) RADHA (acute kidney injury) Code(s): N17.9 - ACUTE KIDNEY FAILURE, UNSPECIFIED (2) Anemia Code(s): D64.9 - ANEMIA, UNSPECIFIED Qualifiers: Anemia type: iron deficiency (3) CHF (congestive heart failure) Code(s): I50.9 - HEART FAILURE, UNSPECIFIED Qualifiers: Congestive heart failure type: diastolic Congestive heart failure chronicity: acute on chronic Qualified Code(s): I50.33 - Acute on chronic diastolic (congestive) heart failure (4) Cholelithiasis Code(s): K80.20 - CALCULUS OF GALLBLADDER W/O CHOLECYSTITIS W/O OBSTRUCTION Qualifiers: Cholelithiasis location: gallbladder Cholecystitis presence: without cholecystitis Biliary obstruction: without biliary obstruction Qualified Code(s): K80.20 - Calculus of gallbladder without cholecystitis without obstruction (5) Elevated serum creatinine Code(s): R79.89 - OTHER SPECIFIED ABNORMAL FINDINGS OF BLOOD CHEMISTRY (6) Hepatic cirrhosis Code(s): K74.60 - UNSPECIFIED CIRRHOSIS OF LIVER Qualifiers: Hepatic cirrhosis type: unspecified hepatic cirrhosis Ascites presence : without ascites Qualified Code(s): K74.60 - Unspecified cirrhosis of liver (7) Rheumatic heart disease Code(s): I09.9 - RHEUMATIC HEART DISEASE, UNSPECIFIED (8) S/P AVR (aortic valve replacement) Code(s): Z95.2 - PRESENCE OF PROSTHETIC HEART VALVE (9) S/P MVR (mitral valve replacement) Code(s): Z95.2 - PRESENCE OF PROSTHETIC HEART VALVE (11) Shortness of breath Code(s): R06.02 - SHORTNESS OF BREATH Assessment/Plan ASSESSMENT AND PLAN: Acute on Chronic LV Diastolic Heart Failure/Right Heart Failure Pulmonary HTN s/p AVR/MVR Atrial Fibrillation Liver Cirrhosis Likely HCC GI Bleed stable Anemia h/o AVM acute on chronic renal failure - continue lasix, aldactone - monitor urine output, creatinine - daily weights, I/Os - monitor H/H - continue protonix - continue anticoagulation - O2 to keep SpO2 >90% - comfort care - prognosis poor DR BOUCHER
--- NOTE | 2016-10-07 15:52 | PN ---
Progress Note (short form) - Note Progress Note: AWAKE ALERT , MODERATE DISTRESS UNABLE TO WALK MORE THAN 5FT AWAITIG PLACEMENT FOR SNF OR HOME PALLIATIVE CARE Problem List - Problems (1) Anemia Code(s): D64.9 - ANEMIA, UNSPECIFIED Qualifiers: Anemia type: iron deficiency (2) CHF (congestive heart failure) Code(s): I50.9 - HEART FAILURE, UNSPECIFIED Qualifiers: Congestive heart failure type: diastolic Congestive heart failure chronicity: acute on chronic Qualified Code(s): I50.33 - Acute on chronic diastolic (congestive) heart failure (3) Elevated serum creatinine Code(s): R79.89 - OTHER SPECIFIED ABNORMAL FINDINGS OF BLOOD CHEMISTRY (4) Hepatic cirrhosis Code(s): K74.60 - UNSPECIFIED CIRRHOSIS OF LIVER Qualifiers: Hepatic cirrhosis type: unspecified hepatic cirrhosis Ascites presence : without ascites Qualified Code(s): K74.60 - Unspecified cirrhosis of liver (5) Rheumatic heart disease Code(s): I09.9 - RHEUMATIC HEART DISEASE, UNSPECIFIED (6) S/P AVR (aortic valve replacement) Code(s): Z95.2 - PRESENCE OF PROSTHETIC HEART VALVE (7) S/P MVR (mitral valve replacement) Code(s): Z95.2 - PRESENCE OF PROSTHETIC HEART VALVE (9) Shortness of breath Code(s): R06.02 - SHORTNESS OF BREATH
--- NOTE | 2016-10-07 16:53 | PN ---
Progress Note, Physician History of Present Illness: Pt seen and examined at bedside. She is now off of tele. She gets SOB with minimal exertion. - Current Medication List Current Medications: Active Medications Acetaminophen (Tylenol -) 650 mg PO Q6H PRN PRN Reason: FEVER OR PAIN Bacitracin (Bacitracin -) 1 applic TP BID [facility] Last Admin: 10/07/16 09:35 Dose: 1 applic Benzocaine (Anbesol -) 1 applic MM Q2H PRN PRN Reason: ORAL PAIN/MOUTH SORES Docusate Sodium (Colace -) 100 mg PO DAILY [facility] Last Admin: 10/07/16 09:34 Dose: 100 mg Ferrous Sulfate (Feosol -) 325 mg PO BIDWM [facility] Last Admin: 10/07/16 09:34 Dose: 325 mg Furosemide (Lasix -) 40 mg PO DAILY@0600 [facility] Last Admin: 10/07/16 06:27 Dose: 40 mg Losartan Potassium (Cozaar -) 25 mg PO DAILY [facility] Last Admin: 10/07/16 09:35 Dose: 25 mg Difluprednate ( Durezol) 0.05% Opth Drops - Pt's Own 1 each OD BID [facility] Last Admin: 10/07/16 09:35 Dose: Not Given Nystatin (Nystatin Oral Suspension -) 500,000 units PO TID [facility] Last Admin: 10/07/16 13:45 Dose: 500,000 units Oxycodone HCl (Roxicodone -) 5 mg PO Q4H PRN PRN Reason: PAIN Pantoprazole Sodium (Protonix -) 40 mg PO BID [facility] Last Admin: 10/07/16 09:34 Dose: 40 mg Spironolactone (Aldactone -) 25 mg PO BID [facility] Last Admin: 10/07/16 09:34 Dose: 25 mg Warfarin Sodium (Coumadin -) 2 mg PO DAILY@1800 [facility] Last Admin: 10/06/16 18:03 Dose: Not Given Zolpidem Tartrate (Ambien -) 7.5 mg PO HS PRN Last Admin: 10/06/16 23:03 Dose: 7.5 mg - Objective Vital Signs: Vital Signs Temperature 98.2 F 10/07/16 15:46 Pulse Rate 95 H 10/07/16 15:46 Respiratory Rate 20 10/07/16 15:46 Blood Pressure 99/42 10/07/16 15:46 O2 Sat by Pulse Oximetry (%) 98 10/07/16 09:00 Constitutional: Yes: Calm Eyes: Yes: Conjunctiva Clear HENT: Yes: Atraumatic Cardiovascular: Yes: JVD, S1, S2 Respiratory: Yes: On Nasal O2 Gastrointestinal: Yes: Soft Musculoskeletal: Yes: Muscle Weakness Edema: Yes Neurological: Yes: Oriented Psychiatric: Yes: Oriented Labs: CBC, BMP 10/04/16 10:40 10/05/16 06:00 INR, PTT INR 2.98 (0.82-1.09) H 10/07/16 10:10 Problem List - Problems (1) Anemia Code(s): D64.9 - ANEMIA, UNSPECIFIED Qualifiers: Anemia type: iron deficiency (2) CHF (congestive heart failure) Code(s): I50.9 - HEART FAILURE, UNSPECIFIED Qualifiers: Congestive heart failure type: diastolic Congestive heart failure chronicity: acute on chronic Qualified Code(s): I50.33 - Acute on chronic diastolic (congestive) heart failure (3) Cholelithiasis Code(s): K80.20 - CALCULUS OF GALLBLADDER W/O CHOLECYSTITIS W/O OBSTRUCTION Qualifiers: Cholelithiasis location: gallbladder Cholecystitis presence: without cholecystitis Biliary obstruction: without biliary obstruction Qualified Code(s): K80.20 - Calculus of gallbladder without cholecystitis without obstruction (4) Hepatic cirrhosis Code(s): K74.60 - UNSPECIFIED CIRRHOSIS OF LIVER Qualifiers: Hepatic cirrhosis type: unspecified hepatic cirrhosis Ascites presence : without ascites Qualified Code(s): K74.60 - Unspecified cirrhosis of liver (5) S/P AVR (aortic valve replacement) Code(s): Z95.2 - PRESENCE OF PROSTHETIC HEART VALVE (6) S/P MVR (mitral valve replacement) Code(s): Z95.2 - PRESENCE OF PROSTHETIC HEART VALVE (8) Shortness of breath Code(s): R06.02 - SHORTNESS OF BREATH (9) RADHA (acute kidney injury) Code(s): N17.9 - ACUTE KIDNEY FAILURE, UNSPECIFIED Assessment/Plan Current Medications Generic Name Dose Route Start Last Admin Trade Name Freq PRN Reason Stop Dose Admin Acetaminophen 650 mg 09/26/16 07:48 Tylenol - PO Q6H PRN FEVER OR PAIN Bacitracin 1 applic 09/26/16 10:00 10/07/16 09:35 Bacitracin - TP 1 applic BID ABELARDO Administration Benzocaine 1 applic 10/03/16 14:00 Anbesol - MM Q2H PRN ORAL PAIN/MOUTH SORES Docusate Sodium 100 mg 10/07/16 10:00 10/07/16 09:34 Colace - PO 100 mg DAILY ABELARDO Administration Ferrous Sulfate 325 mg 09/26/16 08:15 10/07/16 09:34 Feosol - PO 325 mg BIDWM ABELARDO Administration Furosemide 40 mg 10/04/16 06:00 10/07/16 06:27 Lasix - PO 40 mg DAILY@0600 ABELARDO Administration Losartan Potassium 25 mg 09/26/16 10:00 10/07/16 09:35 Cozaar - PO 25 mg DAILY ABELARDO Administration Difluprednate ( 1 each 09/26/16 10:00 10/07/16 09:35 Durezol) 0.05% Opth OD Not Given Drops - Pt's Own BID [facility] Nystatin 500,000 units 10/03/16 22:00 10/07/16 13:45 Nystatin Oral Suspension - PO 500,000 units TID [facility] Administration Oxycodone HCl 5 mg 10/06/16 10:04 Roxicodone - PO Q4H PRN PAIN Pantoprazole Sodium 40 mg 09/26/16 22:00 10/07/16 09:34 Protonix - PO 40 mg BID ABELARDO Administration Spironolactone 25 mg 09/30/16 22:00 10/07/16 09:34 Aldactone - PO 25 mg BID [facility] Administration Warfarin Sodium 2 mg 10/03/16 18:00 10/06/16 18:03 Coumadin - PO Not Given DAILY@1800 [facility] Zolpidem Tartrate 7.5 mg 10/06/16 22:00 10/06/16 23:03 Ambien - PO 7.5 mg HS PRN Administration Impression 1. RADHA 2. aortic valve replacement 3. mitral valve replacement 4. tricuspid valve replacement 5. CHF 6. a-fib 7. anemia 8. hx GI bleed 9. HTN 10. liver cirrhosis 11. CKD Plan - cont with diuretics - pt does not want bloodwork other than INR drawn - no acute change in management - pending discharge on palliative care - will follow PRN Dr Bo
[2016-10-07] MEDS: WARFARIN NA 2 MG TABLET (UD) PO SCH (18:41)
[2016-10-07] MEDS: ZOLPIDEM TARTRATE 5 MG TABLET PO PRN (22:01)
[2016-10-08] MEDS: FUROSEMIDE 40 MG TABLET (FP) PO SCH (06:39)
[2016-10-08] MEDS: NYSTATIN 500,000 UNITS/5 ML SUSPENSION PO SCH ×3 (06:40→22:48)
[2016-10-08] MEDS: DOCUSATE SODIUM 100 MG CAPSULE (FP) PO SCH (09:19)
[2016-10-08] MEDS: SPIRONOLACTONE 25 MG TABLET (FP) PO SCH ×3 (09:19→23:16)
[2016-10-08] MEDS: PANTOPRAZOLE 40 MG TABLET (FP) PO SCH ×2 (09:19→22:47)
[2016-10-08] MEDS: LOSARTAN POTASSIUM 25 MG TABLET PO SCH (09:19)
[2016-10-08] MEDS: FERROUS SO4 325 MG TABLET (FP) PO SCH ×2 (09:19→17:28)
[2016-10-08] MEDS: OPTH OD SCH ×2 (09:21→22:46)
[2016-10-08] MEDS: DIFLUPREDNATE 0.05% OD SCH ×2 (09:21→22:46)
[2016-10-08] MEDS: BACITRACIN 30 GM TUBE TOPICAL OINTMENT TP SCH ×2 (09:22→22:48)
--- NOTE | 2016-10-08 09:46 | DS ---
Physical Examination Vital Signs: Vital Signs Temperature 97.8 F 10/08/16 06:00 Pulse Rate 69 10/08/16 06:00 Respiratory Rate 18 10/08/16 06:00 Blood Pressure 119/58 10/08/16 06:00 O2 Sat by Pulse Oximetry (%) 95 10/07/16 21:00 Constitutional: Yes: Moderate Distress Eyes: Yes: WNL HENT: Yes: WNL Neck: Yes: WNL Cardiovascular: Yes: Pulse Irregular, Murmur Respiratory: Yes: Diminished, On Nasal O2, SOB, Tachypnea Gastrointestinal: Yes: WNL Renal/: Yes: Other Breast(s): Yes: WNL, Skin Changes Musculoskeletal: Yes: Muscle Weakness Extremities: Yes: Erythema, Other Edema: Yes Edema: LLE: 2+, RLE: 2+ Peripheral Pulses WNL: Yes Integumentary: Yes: Erythema, Rash, Venous Stasis Changes Wound/Incision: Yes: Dressing Dry and Intact Neurological: Yes: Unsteady Gait, Weakness ...Motor Strength: LLE, RLE Psychiatric: Yes: Other Labs: CBC, BMP 10/04/16 10:40 10/05/16 06:00 Discharge Summary Reason For Visit: CHF/SOB/ELEVATE SERUM CREATNINE Current Active Problems RADHA (acute kidney injury) (Acute) Anemia (Acute) Angiodysplasia of gastrointestinal tract (Acute) Azotemia (Acute) CHF (congestive heart failure) (Acute) CKD (chronic kidney disease) (Acute) Cholelithiasis (Acute) Elevated serum creatinine (Acute) Enlarged liver (Acute) Hepatic cirrhosis (Acute) Hepatocellular carcinoma (Acute) Left-sided nosebleed (Acute) Liver mass (Acute) Permanent atrial fibrillation (Acute) Pulmonary hypertension (Acute) Rheumatic heart disease (Acute) Right heart failure (Acute) S/P AVR (aortic valve replacement) (Acute) S/P MVR (mitral valve replacement) (Acute) S/P TVR (tricuspid valve replacement) (Acute) Shortness of breath (Acute) The administrative codes within the IMO content you are accessing may have as of 07/05/2016. Please contact your IT Dept/Help Desk and request the latest Regulatory release be installed. IT Dept/Help Desk- Please refer to our FAQ page ([email or web address]) or contact [employer] Customer Support at [email or web address] (Acute) Tricuspid regurgitation (Acute) Venous stasis dermatitis of both lower extremities (Acute) Procedures: Principal: ECHO Other Procedures: LABS/SCANS Hospital Course: ADMITTED WITH DECOMPENSATED HEART FAILURE, DYSPNEA, LIVER CANCER, OPTIMIZED IN ICU FOR HEART FAILURE, HOWEVER WITH POOR CARDIAC DISEASE AND HEPATOCELLULAR CARCINOMA FAMILY HAS DECIDED ON HOSPICE CARE/PALLIATIVE/HOME?? Condition: Guarded - Instructions Diet, Activity, Other Instructions: LOW SALT Referrals: Braeden Dimas MD [Primary Care Provider] - Disposition: [facility] - Home Medications Comprehensive Discharge Medication List: Ambulatory Orders Ferrous Sulfate [Feosol] 325 mg PO BID 04/25/13 Calcium Citrate/Vitamin D3 [Calcitrate + Vit D Caplet] 1 each PO BID 09/05/16 Difluprednate [Durezol] 1 drop OP BID 09/05/16 Losartan Potassium [Cozaar -] 25 mg PO DAILY 09/05/16 Nepafenac [Ilevro] 1 drop OP DAILY 09/05/16 Non-Formulary 1 tab PO DAILY 09/05/16 Warfarin Sodium [Coumadin] 3 mg PO ASDIR 09/05/16 Acetaminophen [Tylenol .Regular Strength -] 650 mg PO Q6H PRN #0 tablet Albuterol 0.083% Nebulizer Argenis [Ventolin 0.083% Nebulizer Soln -] 1 amp NEB Q4H PRN #0 amp 10/02/16 Bacitracin - [Bacitracin Topical Ointment -] 1 applic TP BID tube 10/02/16 Ferrous Sulfate [Feosol] 325 mg PO BIDWM ud 10/02/16 Furosemide [Lasix -] 40 mg PO HS tablet 10/02/16 Furosemide [Lasix -] 80 mg PO DAILY tablet 10/02/16 Losartan Potassium [Cozaar -] 25 mg PO DAILY tablet 10/02/16 Pantoprazole Sodium [Protonix -] 40 mg PO BID tablet.ec 10/02/16 Spironolactone [Aldactone -] 25 mg PO BID tablet 10/02/16 Warfarin Na [Coumadin -] 2 mg PO DAILY@1800 tablet 10/02/16 Zolpidem Tartrate [Ambien] 7.5 mg PO HS PRN #30 tablet MDD 1 10/02/16
--- NOTE | 2016-10-08 14:26 | PN ---
Progress Note, Physician History of Present Illness: pulmonary alert,dyspneic with in exertion - Current Medication List Current Medications: Active Medications Acetaminophen (Tylenol -) 650 mg PO Q6H PRN PRN Reason: FEVER OR PAIN Bacitracin (Bacitracin -) 1 applic TP BID [facility] Last Admin: 10/08/16 09:22 Dose: 1 applic Benzocaine (Anbesol -) 1 applic MM Q2H PRN PRN Reason: ORAL PAIN/MOUTH SORES Docusate Sodium (Colace -) 100 mg PO DAILY [facility] Last Admin: 10/08/16 09:19 Dose: 100 mg Ferrous Sulfate (Feosol -) 325 mg PO BIDWM [facility] Last Admin: 10/08/16 09:19 Dose: 325 mg Furosemide (Lasix -) 40 mg PO DAILY@0600 [facility] Last Admin: 10/08/16 06:39 Dose: 40 mg Losartan Potassium (Cozaar -) 25 mg PO DAILY [facility] Last Admin: 10/08/16 09:19 Dose: 25 mg Difluprednate ( Durezol) 0.05% Opth Drops - Pt's Own 1 each OD BID [facility] Last Admin: 10/08/16 09:21 Dose: Not Given Nystatin (Nystatin Oral Suspension -) 500,000 units PO TID [facility] Last Admin: 10/08/16 06:40 Dose: 500,000 units Oxycodone HCl (Roxicodone -) 5 mg PO Q4H PRN PRN Reason: PAIN Pantoprazole Sodium (Protonix -) 40 mg PO BID [facility] Last Admin: 10/08/16 09:19 Dose: 40 mg Spironolactone (Aldactone -) 25 mg PO BID [facility] Last Admin: 10/08/16 09:19 Dose: 25 mg Warfarin Sodium (Coumadin -) 2 mg PO DAILY@1800 [facility] Last Admin: 10/07/16 18:41 Dose: 2 mg Zolpidem Tartrate (Ambien -) 7.5 mg PO HS PRN Last Admin: 10/07/16 22:01 Dose: 7.5 mg - Objective Vital Signs: Vital Signs Temperature 98.1 F 10/08/16 10:00 Pulse Rate 88 10/08/16 11:22 Respiratory Rate 22 10/08/16 10:00 Blood Pressure 131/56 10/08/16 10:00 O2 Sat by Pulse Oximetry (%) 99 10/08/16 11:22 Constitutional: Yes: Calm, Thin Eyes: Yes: WNL HENT: Yes: WNL Neck: Yes: WNL Cardiovascular: Yes: Pulse Irregular, S1, S2 Respiratory: Yes: Rales Gastrointestinal: Yes: Normal Bowel Sounds, Soft Extremities: Yes: WNL Edema: Yes Labs: CBC, BMP Problem List - Problems (1) RADHA (acute kidney injury) Code(s): N17.9 - ACUTE KIDNEY FAILURE, UNSPECIFIED (2) Anemia Code(s): D64.9 - ANEMIA, UNSPECIFIED Qualifiers: Anemia type: iron deficiency (3) CHF (congestive heart failure) Code(s): I50.9 - HEART FAILURE, UNSPECIFIED Qualifiers: Congestive heart failure type: diastolic Congestive heart failure chronicity: acute on chronic Qualified Code(s): I50.33 - Acute on chronic diastolic (congestive) heart failure (4) Cholelithiasis Code(s): K80.20 - CALCULUS OF GALLBLADDER W/O CHOLECYSTITIS W/O OBSTRUCTION Qualifiers: Cholelithiasis location: gallbladder Cholecystitis presence: without cholecystitis Biliary obstruction: without biliary obstruction Qualified Code(s): K80.20 - Calculus of gallbladder without cholecystitis without obstruction (5) Elevated serum creatinine Code(s): R79.89 - OTHER SPECIFIED ABNORMAL FINDINGS OF BLOOD CHEMISTRY (6) Hepatic cirrhosis Code(s): K74.60 - UNSPECIFIED CIRRHOSIS OF LIVER Qualifiers: Hepatic cirrhosis type: unspecified hepatic cirrhosis Ascites presence : without ascites Qualified Code(s): K74.60 - Unspecified cirrhosis of liver (7) Rheumatic heart disease Code(s): I09.9 - RHEUMATIC HEART DISEASE, UNSPECIFIED (8) S/P AVR (aortic valve replacement) Code(s): Z95.2 - PRESENCE OF PROSTHETIC HEART VALVE (9) S/P MVR (mitral valve replacement) Code(s): Z95.2 - PRESENCE OF PROSTHETIC HEART VALVE (11) Shortness of breath Code(s): R06.02 - SHORTNESS OF BREATH Assessment/Plan ASSESSMENT AND PLAN: Acute on Chronic LV Diastolic Heart Failure/Right Heart Failure Pulmonary HTN s/p AVR/MVR Atrial Fibrillation Liver Cirrhosis Likely HCC GI Bleed stable Anemia h/o AVM acute on chronic renal failure - lasix, aldactone - monitor urine output, creatinine - daily weights, I/Os - monitor H/H - continue protonix - continue anticoagulation - O2 to keep SpO2 >90% - comfort care - prognosis poor - nh placement DR BOUCHER
--- NOTE | 2016-10-08 15:30 | PN ---
Progress Note (short form) - Note Progress Note: S: 86 year old female with history of rheumatic heart disease, s/p mitral, aortic, and tricuspid valve replacement, severe pulmonary hypertension, permanent atrial fibrillation, hx of AV malformation, cardiac cirrhosis, chronic kidney disease. Patient is being considered for hospice because of hepatic tumor and ongoing right heart failure associated with severe pulmonary hypertension. Patient remains dyspneic at rest, has several pillow orthopnea, and 3-4+ pedal edema. Active Medications Generic Name Dose Route Start Last Admin Trade Name Freq PRN Reason Stop Dose Admin Acetaminophen 650 mg 09/26/16 07:48 Tylenol - PO Q6H PRN FEVER OR PAIN Bacitracin 1 applic 09/26/16 10:00 10/08/16 09:22 Bacitracin - TP 1 applic BID ABELARDO Administration Benzocaine 1 applic 10/03/16 14:00 Anbesol - MM Q2H PRN ORAL PAIN/MOUTH SORES Docusate Sodium 100 mg 10/07/16 10:00 10/08/16 09:19 Colace - PO 100 mg DAILY ABELARDO Administration Ferrous Sulfate 325 mg 09/26/16 08:15 10/08/16 09:19 Feosol - PO 325 mg BIDWM ABELARDO Administration Furosemide 40 mg 10/04/16 06:00 10/08/16 06:39 Lasix - PO 40 mg DAILY@0600 ABELARDO Administration Losartan Potassium 25 mg 10/08/16 10:00 10/08/16 09:19 Cozaar - PO 25 mg DAILY ABELARDO Administration Difluprednate ( 1 each 09/26/16 10:00 10/08/16 09:21 Durezol) 0.05% Opth OD Not Given Drops - Pt's Own BID ABELARDO Nystatin 500,000 units 10/03/16 22:00 10/08/16 14:59 Nystatin Oral Suspension - PO 500,000 units TID ABELARDO Administration Oxycodone HCl 5 mg 10/06/16 10:04 Roxicodone - PO Q4H PRN PAIN Pantoprazole Sodium 40 mg 09/26/16 22:00 10/08/16 09:19 Protonix - PO 40 mg BID ABELARDO Administration Spironolactone 25 mg 09/30/16 22:00 10/08/16 09:19 Aldactone - PO 25 mg BID ABELARDO Administration Warfarin Sodium 2 mg 10/03/16 18:00 10/07/16 18:41 Coumadin - PO 2 mg DAILY@1800 ABELARDO Administration Zolpidem Tartrate 7.5 mg 10/06/16 22:00 10/07/16 22:01 Ambien - PO 7.5 mg HS PRN Administration O: 86 year old female was in respiratory distress. Conjunctival pallor. Last Vital Signs Temp Pulse Resp BP Pulse Ox 97.6 F 78 18 124/55 99 10/08/16 15:25 10/08/16 15:25 10/08/16 15:25 10/08/16 15:25 10/08/16 11:22 NECK: Supple, JVD up to the angle of the jaw and pulsitile neck veins, carotids were equal and upstrokes were normal, no thyromegaly appreciated. HEART: PMI was in the 5th intercostal space, left parasternal heave, no thrills , prosthetic heart sounds.Grade II/ systolic murmur heard along the left sternal boarder and apex. No gallops were appreciated. LUNGS: Decreased breath sounds at both bases and scattered crepitations. ABDOMEN: Right upper quadrant guarding, liver 2 finger breaths below the right costal margin and is pulsitile. No splenomegaly was appreciated. EXTREMITIES: 3-4+ pitting edema bilaterally. Chronic stasis changes. CBC, BMP 10/04/16 10:40 10/05/16 06:00 Impression: 1. CHF NYHA Class IV. 2. S/p mechanical mitral and aortic valve replacement. 3. S/p bioprosthetic tricuspid valve replacement. 4. Hx of rheumatic heart disease. 5. Permanent atrial fibrillation. 6. Severe tricuspid regurgitation. 7. Severe pulmonary hypertension. 8. Cardiac cirrhosis. 9. Chronic anemia. 10. Acute on chronic kidney disease. 11. Hx of AVM. Recommendations: 1. Detailed discussion with son and daughter regarding patient's condition. They would prefer that the patient is kept comfortable and are thinking for hospice care. 2. Supportive therapy. 3. Consider adding Zaroxylin 2.5 mg on a PRN basis, half hour before lasix. 4. Aldactone could be increased to 25mg BID under close monitoring of electrolytes. Documentation prepared by Loraine Pereyra, acting as medical unit secretary for Pillo Grossman MD. Problem List - Problems (1) Anemia Code(s): D64.9 - ANEMIA, UNSPECIFIED Qualifiers: Anemia type: iron deficiency (2) CHF (congestive heart failure) Code(s): I50.9 - HEART FAILURE, UNSPECIFIED Qualifiers: Congestive heart failure type: diastolic Congestive heart failure chronicity: acute on chronic Qualified Code(s): I50.33 - Acute on chronic diastolic (congestive) heart failure (3) CKD (chronic kidney disease) Code(s): N18.9 - CHRONIC KIDNEY DISEASE, UNSPECIFIED (4) Hepatic cirrhosis Code(s): K74.60 - UNSPECIFIED CIRRHOSIS OF LIVER Qualifiers: Hepatic cirrhosis type: unspecified hepatic cirrhosis Ascites presence : without ascites Qualified Code(s): K74.60 - Unspecified cirrhosis of liver (5) Permanent atrial fibrillation Code(s): I48.2 - CHRONIC ATRIAL FIBRILLATION (6) Pulmonary hypertension Code(s): I27.2 - OTHER SECONDARY PULMONARY HYPERTENSION (7) Rheumatic heart disease Code(s): I09.9 - RHEUMATIC HEART DISEASE, UNSPECIFIED (8) S/P AVR (aortic valve replacement) Code(s): Z95.2 - PRESENCE OF PROSTHETIC HEART VALVE (9) S/P MVR (mitral valve replacement) Code(s): Z95.2 - PRESENCE OF PROSTHETIC HEART VALVE (11) Tricuspid regurgitation Code(s): I07.1 - RHEUMATIC TRICUSPID INSUFFICIENCY
[2016-10-08] MEDS: WARFARIN NA 2 MG TABLET (UD) PO SCH (17:28)
[2016-10-08 20:26] LABS: INR 2.26 (0.82-1.09); PROTHROMBIN TIME (PATIENT) 25.3 SEC (9.98-11.88)
[2016-10-08] MEDS ORDERED: PT OWN MED DRAWER 7, Y5N ONE (21:42)
[2016-10-08] MEDS: ZOLPIDEM TARTRATE 5 MG TABLET PO PRN (23:41)
[2016-10-09] MEDS: FUROSEMIDE 40 MG TABLET (FP) PO SCH (07:08)
[2016-10-09] MEDS: NYSTATIN 500,000 UNITS/5 ML SUSPENSION PO SCH ×3 (07:08→22:10)
[2016-10-09] MEDS: FERROUS SO4 325 MG TABLET (FP) PO SCH ×2 (09:07→18:05)
[2016-10-09] MEDS: DOCUSATE SODIUM 100 MG CAPSULE (FP) PO SCH (10:41)
[2016-10-09] MEDS: PANTOPRAZOLE 40 MG TABLET (FP) PO SCH ×2 (10:41→22:10)
[2016-10-09] MEDS: LOSARTAN POTASSIUM 25 MG TABLET PO SCH (10:41)
[2016-10-09] MEDS: SPIRONOLACTONE 25 MG TABLET (FP) PO SCH ×2 (10:41→22:09)
[2016-10-09] MEDS: OPTH OD SCH ×2 (10:42→22:09)
[2016-10-09] MEDS: DIFLUPREDNATE 0.05% OD SCH ×2 (10:42→22:09)
[2016-10-09] MEDS: BACITRACIN 30 GM TUBE TOPICAL OINTMENT TP SCH ×2 (10:43→22:10)
--- NOTE | 2016-10-09 11:16 | PN ---
Progress Note (short form) - Note Progress Note: awake, tired family bedside AWAITING PLACEMENT Problem List - Problems (1) Anemia Code(s): D64.9 - ANEMIA, UNSPECIFIED Qualifiers: Anemia type: iron deficiency (2) CHF (congestive heart failure) Code(s): I50.9 - HEART FAILURE, UNSPECIFIED Qualifiers: Congestive heart failure type: diastolic Congestive heart failure chronicity: acute on chronic Qualified Code(s): I50.33 - Acute on chronic diastolic (congestive) heart failure (3) Elevated serum creatinine Code(s): R79.89 - OTHER SPECIFIED ABNORMAL FINDINGS OF BLOOD CHEMISTRY (4) Hepatic cirrhosis Code(s): K74.60 - UNSPECIFIED CIRRHOSIS OF LIVER Qualifiers: Hepatic cirrhosis type: unspecified hepatic cirrhosis Ascites presence : without ascites Qualified Code(s): K74.60 - Unspecified cirrhosis of liver (5) Rheumatic heart disease Code(s): I09.9 - RHEUMATIC HEART DISEASE, UNSPECIFIED (6) S/P AVR (aortic valve replacement) Code(s): Z95.2 - PRESENCE OF PROSTHETIC HEART VALVE (7) S/P MVR (mitral valve replacement) Code(s): Z95.2 - PRESENCE OF PROSTHETIC HEART VALVE (9) Shortness of breath Code(s): R06.02 - SHORTNESS OF BREATH
--- NOTE | 2016-10-09 12:00 | PN ---
Progress Note (short form) - Note Progress Note: Progress Note PULM/CCM Patient Name: SYED PANIAGUA Date of : 1930 Patient Status: Inpatient Attending Provider: Braeden Dimas No acute events overnight. No CP or SOB. NAD. Intake & Output 10/06/16 10/07/16 10/08/16 10/09/16 23:59 23:59 23:59 23:59 Intake Total 110 750 580 0 Balance 110 750 580 0 Weight 183 lb 6 oz 139 lb 140 lb 1 oz 142 lb Last Vital Signs Temp Pulse Resp BP Pulse Ox 97.2 F L 77 20 118/50 96 10/09/16 06:00 10/09/16 07:02 10/09/16 06:00 10/09/16 06:00 10/09/16 07:02 Active Medications Acetaminophen (Tylenol -) 650 mg PO Q6H PRN PRN Reason: FEVER OR PAIN Bacitracin (Bacitracin -) 1 applic TP BID [facility] Last Admin: 10/09/16 10:43 Dose: 1 applic Benzocaine (Anbesol -) 1 applic MM Q2H PRN PRN Reason: ORAL PAIN/MOUTH SORES Docusate Sodium (Colace -) 100 mg PO DAILY [facility] Last Admin: 10/09/16 10:41 Dose: 100 mg Ferrous Sulfate (Feosol -) 325 mg PO BIDWM [facility] Last Admin: 10/09/16 09:07 Dose: 325 mg Furosemide (Lasix -) 40 mg PO DAILY@0600 [facility] Last Admin: 10/09/16 07:08 Dose: 40 mg Losartan Potassium (Cozaar -) 25 mg PO DAILY [facility] Last Admin: 10/09/16 10:41 Dose: 25 mg Metolazone (Zaroxolyn -) 7.5 mg PO DAILY@0530 [facility] Difluprednate ( Durezol) 0.05% Opth Drops - Pt's Own 1 each OD BID [facility] Last Admin: 10/09/16 10:42 Dose: Not Given Nystatin (Nystatin Oral Suspension -) 500,000 units PO TID [facility] Last Admin: 10/09/16 07:08 Dose: 500,000 units Oxycodone HCl (Roxicodone -) 5 mg PO Q4H PRN PRN Reason: PAIN Pantoprazole Sodium (Protonix -) 40 mg PO BID [facility] Last Admin: 10/09/16 10:41 Dose: 40 mg Spironolactone (Aldactone -) 25 mg PO BID [facility] Last Admin: 10/09/16 10:41 Dose: 25 mg Warfarin Sodium (Coumadin -) 2 mg PO DAILY@1800 [facility] Last Admin: 10/08/16 17:28 Dose: 2 mg Zolpidem Tartrate (Ambien -) 7.5 mg PO HS PRN Last Admin: 10/08/16 23:41 Dose: 7.5 mg Constitutional: Yes: NAD Eyes: Yes: WNL HENT: Yes: WNL Neck: Yes: Supple Cardiovascular: Yes: Pulse Irregular, S1, S2 Respiratory: Yes: Few basilar Ronchi Gastrointestinal: Yes: Normal Bowel Sounds, Soft Extremities: Yes: WNL Edema: Yes Labs: Laboratory Results - last 24 hr 10/08/16 19:15 INR 2.26 H Problem List - Problems (1) RADHA (acute kidney injury) Code(s): N17.9 - ACUTE KIDNEY FAILURE, UNSPECIFIED (2) Anemia Code(s): D64.9 - ANEMIA, UNSPECIFIED Qualifiers: Anemia type: iron deficiency (3) CHF (congestive heart failure) Code(s): I50.9 - HEART FAILURE, UNSPECIFIED Qualifiers: Congestive heart failure type: diastolic Congestive heart failure chronicity: acute on chronic Qualified Code(s): I50.33 - Acute on chronic diastolic (congestive) heart failure (4) Cholelithiasis Code(s): K80.20 - CALCULUS OF GALLBLADDER W/O CHOLECYSTITIS W/O OBSTRUCTION Qualifiers: Cholelithiasis location: gallbladder Cholecystitis presence: without cholecystitis Biliary obstruction: without biliary obstruction Qualified Code(s): K80.20 - Calculus of gallbladder without cholecystitis without obstruction (5) Elevated serum creatinine Code(s): R79.89 - OTHER SPECIFIED ABNORMAL FINDINGS OF BLOOD CHEMISTRY (6) Hepatic cirrhosis Code(s): K74.60 - UNSPECIFIED CIRRHOSIS OF LIVER Qualifiers: Hepatic cirrhosis type: unspecified hepatic cirrhosis Ascites presence : without ascites Qualified Code(s): K74.60 - Unspecified cirrhosis of liver (7) Rheumatic heart disease Code(s): I09.9 - RHEUMATIC HEART DISEASE, UNSPECIFIED (8) S/P AVR (aortic valve replacement) Code(s): Z95.2 - PRESENCE OF PROSTHETIC HEART VALVE (9) S/P MVR (mitral valve replacement) Code(s): Z95.2 - PRESENCE OF PROSTHETIC HEART VALVE (11) Shortness of breath Code(s): R06.02 - SHORTNESS OF BREATH Assessment/Plan A/P Acute on Chronic LV Diastolic Heart Failure Pulmonary HTN s/p AVR/MVR Atrial Fibrillation Liver Cirrhosis r/o Hepatoma - Lasix, aldactone, zaroxolyn - daily weights, I/Os - AC - O2 to keep SpO2 >90% - inhaled bronchodilators as needed Dr Miller
--- NOTE | 2016-10-09 16:58 | PN ---
Progress Note, Physician History of Present Illness: Stable dyspnea, await placement. - Current Medication List Current Medications: Active Medications Acetaminophen (Tylenol -) 650 mg PO Q6H PRN PRN Reason: FEVER OR PAIN Bacitracin (Bacitracin -) 1 applic TP BID [facility] Last Admin: 10/09/16 10:43 Dose: 1 applic Benzocaine (Anbesol -) 1 applic MM Q2H PRN PRN Reason: ORAL PAIN/MOUTH SORES Docusate Sodium (Colace -) 100 mg PO DAILY [facility] Last Admin: 10/09/16 10:41 Dose: 100 mg Ferrous Sulfate (Feosol -) 325 mg PO BIDWM [facility] Last Admin: 10/09/16 09:07 Dose: 325 mg Furosemide (Lasix -) 40 mg PO DAILY@0600 [facility] Last Admin: 10/09/16 07:08 Dose: 40 mg Losartan Potassium (Cozaar -) 25 mg PO DAILY [facility] Last Admin: 10/09/16 10:41 Dose: 25 mg Metolazone (Zaroxolyn -) 7.5 mg PO DAILY@0530 [facility] Difluprednate ( Durezol) 0.05% Opth Drops - Pt's Own 1 each OD BID [facility] Last Admin: 10/09/16 10:42 Dose: Not Given Nystatin (Nystatin Oral Suspension -) 500,000 units PO TID [facility] Last Admin: 10/09/16 15:46 Dose: 500,000 units Oxycodone HCl (Roxicodone -) 5 mg PO Q4H PRN PRN Reason: PAIN Pantoprazole Sodium (Protonix -) 40 mg PO BID [facility] Last Admin: 10/09/16 10:41 Dose: 40 mg Spironolactone (Aldactone -) 25 mg PO BID [facility] Last Admin: 10/09/16 10:41 Dose: 25 mg Warfarin Sodium (Coumadin -) 2 mg PO DAILY@1800 [facility] Last Admin: 10/08/16 17:28 Dose: 2 mg Zolpidem Tartrate (Ambien -) 7.5 mg PO HS PRN Last Admin: 10/08/16 23:41 Dose: 7.5 mg - Objective Vital Signs: Vital Signs Temperature 98.4 F 10/09/16 14:17 Pulse Rate 82 10/09/16 14:17 Respiratory Rate 22 10/09/16 14:17 Blood Pressure 121/64 10/09/16 14:17 O2 Sat by Pulse Oximetry (%) 98 10/09/16 09:00 Constitutional: Yes: No Distress, Calm Neck: Yes: Supple Cardiovascular: Yes: Pulse Irregular, Murmur (2/6 SM), Other ([place] mechanical valve sounds) Respiratory: Yes: Regular, Diminished, On Nasal O2 Gastrointestinal: Yes: Normal Bowel Sounds, Soft Edema: Yes Labs: CBC, BMP 10/04/16 10:40 10/05/16 06:00 INR, PTT INR 2.26 (0.82-1.09) H 10/08/16 19:15 Problem List - Problems (1) CHF (congestive heart failure) Code(s): I50.9 - HEART FAILURE, UNSPECIFIED Qualifiers: Congestive heart failure type: diastolic Congestive heart failure chronicity: acute on chronic Qualified Code(s): I50.33 - Acute on chronic diastolic (congestive) heart failure (2) Rheumatic heart disease Code(s): I09.9 - RHEUMATIC HEART DISEASE, UNSPECIFIED (3) S/P AVR (aortic valve replacement) Code(s): Z95.2 - PRESENCE OF PROSTHETIC HEART VALVE (4) S/P MVR (mitral valve replacement) Code(s): Z95.2 - PRESENCE OF PROSTHETIC HEART VALVE (6) Shortness of breath Code(s): R06.02 - SHORTNESS OF BREATH (7) Permanent atrial fibrillation Code(s): I48.2 - CHRONIC ATRIAL FIBRILLATION (8) Pulmonary hypertension Code(s): I27.2 - OTHER SECONDARY PULMONARY HYPERTENSION (9) Venous stasis dermatitis of both lower extremities Code(s): I83.11 - VARICOSE VEINS OF RIGHT LOWER EXTREMITY WITH INFLAMMATION I83.12 - VARICOSE VEINS OF LEFT LOWER EXTREMITY WITH INFLAMMATION (10) Cholelithiasis Code(s): K80.20 - CALCULUS OF GALLBLADDER W/O CHOLECYSTITIS W/O OBSTRUCTION Qualifiers: Cholelithiasis location: gallbladder Cholecystitis presence: without cholecystitis Biliary obstruction: without biliary obstruction Qualified Code(s): K80.20 - Calculus of gallbladder without cholecystitis without obstruction (11) Hepatic cirrhosis Code(s): K74.60 - UNSPECIFIED CIRRHOSIS OF LIVER Qualifiers: Hepatic cirrhosis type: unspecified hepatic cirrhosis Ascites presence : without ascites Qualified Code(s): K74.60 - Unspecified cirrhosis of liver (12) Hepatocellular carcinoma Code(s): C22.0 - LIVER CELL CARCINOMA (13) Angiodysplasia of gastrointestinal tract Code(s): K55.20 - ANGIODYSPLASIA OF COLON WITHOUT HEMORRHAGE Assessment/Plan Echocardiography dated 09/09/2016 revealed normal LV size and function with mild concentric LVH, severe bi-atrial enlargement, mechanical AVR, MVR, Bio- prosthetic TV, moderate TR with RVSP >60 mmHg Echocardiography dated 03/22/2015 revealed preserved LV function with mild concentric LVH, severe bi-atrial dilatation, mechanical MV and AV prosthesis, TV bio-prosthetic, moderate to severe MR, moderate TR with severe pulmonary HTN RVSP of 67 mHg 1. 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 Severe pulmonary HTN related to above 3. Post MVR and AVR (mechanical prosthesis) with history of rheumatic heart disease and therapeutic INR 4. Post TVR (Bio-prosthesis) 5. Permanent atrial fibrillation with slow ventricular response, asymptomatic 6. History of hepatic cirrhosis with likely HCC 7. Acute on CKD 8. Anemia with dropping H/H post transfusion, 2/2 GI bleed, h/o AVM PLAN: 1. Continue Lasix 40 qd, Aldactone 25 bid, Zaroxlyn 7.5 qd added 2. Continue Coumadin as per INR maintain 2.5-3.0 3. Continue Cozaar 25 qd 4. Transfuse to maintain Hg equal or > 8.0, protonix, endoscopy is risky 5. O2 to maintain saO2, support stockings, OOB to chair, DNR/DNI 6. Plan for inpatient hospice, await placement
[2016-10-09] MEDS: WARFARIN NA 2 MG TABLET (UD) PO SCH (18:05)
[2016-10-09] MEDS ORDERED: PT OWN MED DRAWER 7, Y5N ONE (21:59)
[2016-10-09] MEDS: ZOLPIDEM TARTRATE 5 MG TABLET PO PRN (22:11)
[2016-10-10] MEDS: METOLAZONE 2.5 MG TABLET (FP) PO SCH (06:31)
[2016-10-10] MEDS: NYSTATIN 500,000 UNITS/5 ML SUSPENSION PO SCH ×3 (06:31→21:27)
[2016-10-10] MEDS: FUROSEMIDE 40 MG TABLET (FP) PO SCH (07:05)
[2016-10-10 07:50] LABS: INR 2.68 (0.82-1.09); PROTHROMBIN TIME (PATIENT) 30.1 SEC (9.98-11.88)
--- NOTE | 2016-10-10 08:12 | PN ---
Progress Note (short form) - Note Progress Note: INR 2.6 TODAY, ON COUMADIN 2MG, DIURESIS WITH ALDACTONE/THIAZIDE/LASIX ALL PO CONTINUED 02 SUPPORT BEDSIDE PT, OOB TO CHAIR PAIN CONTROL AMBIEN FOR SLEEP AID PATIENT HAS MENTIONED MULTIPLE TIMES SHE DOES NOT WANT ANY HEROIC MEDICAL TREATMENT, WOULD PREFER HOSPICE/COMFORTABLE CARE AND TO BE DISCHARGED TO [facility] OR [facility]. HOWEVER, DUE TO BED AVAILABILITY AND INSURANCE CIRCUMSTANCES THIS PLAN HAS ELENA COMPLICATED AND PATIENT AND FAMILY MAY NEED TO FOR HOME WITH VNS/HOME HOSPICE WITH COMFORT MEASURES. DISCHARGE PLANNING/PALLIATIVE CARE AND THE DOG SHOW JUDGE ARE ALL AWARE OF THE PLANS AND WE ARE AWARE OF THE PATIENT'S NEEDS AND FAMILY IS ALSO EXTREMELY SUPPORTIVE TO THEIR MOTHER'S NEEDS. WE WILL CONTINUE MEDICAL MANAGEMENT AND SUPPORTIVE CARE WITH NO MEDICAL PROCEDURES, NO INTERVENTIONS THAT ARE AGGRESSIVE OR HEROIC. I HAVE SIGNED THIS CASE OUT TO DR. DUQUE WHO IS COVERING ME FOR THE WEEKEND AND HE IS AWARE OF THE ABOVE CIRCUMSTANCES PATIENT DNR/DNI HOSPICE PLACEMENT. ALDA RIOS MD Problem List - Problems (1) Anemia Code(s): D64.9 - ANEMIA, UNSPECIFIED Qualifiers: Anemia type: iron deficiency (2) CHF (congestive heart failure) Code(s): I50.9 - HEART FAILURE, UNSPECIFIED Qualifiers: Congestive heart failure type: diastolic Congestive heart failure chronicity: acute on chronic Qualified Code(s): I50.33 - Acute on chronic diastolic (congestive) heart failure (3) Elevated serum creatinine Code(s): R79.89 - OTHER SPECIFIED ABNORMAL FINDINGS OF BLOOD CHEMISTRY (4) Hepatic cirrhosis Code(s): K74.60 - UNSPECIFIED CIRRHOSIS OF LIVER Qualifiers: Hepatic cirrhosis type: unspecified hepatic cirrhosis Ascites presence : without ascites Qualified Code(s): K74.60 - Unspecified cirrhosis of liver (5) Rheumatic heart disease Code(s): I09.9 - RHEUMATIC HEART DISEASE, UNSPECIFIED (6) S/P AVR (aortic valve replacement) Code(s): Z95.2 - PRESENCE OF PROSTHETIC HEART VALVE (7) S/P MVR (mitral valve replacement) Code(s): Z95.2 - PRESENCE OF PROSTHETIC HEART VALVE (9) Shortness of breath Code(s): R06.02 - SHORTNESS OF BREATH
[2016-10-10] MEDS: PANTOPRAZOLE 40 MG TABLET (FP) PO SCH ×2 (10:07→21:27)
[2016-10-10] MEDS: DOCUSATE SODIUM 100 MG CAPSULE (FP) PO SCH (10:07)
[2016-10-10] MEDS: SPIRONOLACTONE 25 MG TABLET (FP) PO SCH ×2 (10:07→21:27)
[2016-10-10] MEDS: LOSARTAN POTASSIUM 25 MG TABLET PO SCH (10:07)
[2016-10-10] MEDS: FERROUS SO4 325 MG TABLET (FP) PO SCH ×2 (10:07→16:56)
[2016-10-10] MEDS: BACITRACIN 30 GM TUBE TOPICAL OINTMENT TP SCH (10:08)
[2016-10-10] MEDS: DIFLUPREDNATE 0.05% OD SCH (10:08)
[2016-10-10] MEDS: OPTH OD SCH (10:08)
[2016-10-10] MEDS ORDERED: TUBERCULIN PPD 5 TU/0.1ML SYRINGE (IN PATIENT USE ONLY) ID ONE (11:28)
--- NOTE | 2016-10-10 12:35 | PN ---
Progress Note (short form) - Note Progress Note: S: 86 year old female, history of rheumatic heart disease s/p mechanical mitral and aortic valve replacement, s/p bioprosthatic tricuspid valve replacement, congestive heart failure, severe pulmonary hypertension, acute om chronic kidney disease. Since being on Zaroxolyn and increase dose on aldactone, there appears to be significant decrease in dyspnea and pedal edema. No chest pain or discomfort reported, denies having PND or orthopnea and no history of palpitations. Active Medications Generic Name Dose Route Start Last Admin Trade Name Freq PRN Reason Stop Dose Admin Acetaminophen 650 mg 09/26/16 07:48 Tylenol - PO Q6H PRN FEVER OR PAIN Bacitracin 1 applic 09/26/16 10:00 10/10/16 10:08 Bacitracin - TP 1 applic BID AB[facility]O Administration Benzocaine 1 applic 10/03/16 14:00 Anbesol - MM Q2H PRN ORAL PAIN/MOUTH SORES Docusate Sodium 100 mg 10/07/16 10:00 10/10/16 10:07 Colace - PO 100 mg DAILY ABELARDO Administration Ferrous Sulfate 325 mg 09/26/16 08:15 10/10/16 10:07 Feosol - PO 325 mg BIDWM ABELARDO Administration Furosemide 40 mg 10/04/16 06:00 10/10/16 07:05 Lasix - PO 40 mg DAILY@0600 ABELARDO Administration Losartan Potassium 25 mg 10/08/16 10:00 10/10/16 10:07 Cozaar - PO 25 mg DAILY ABEL[facility]O Administration Metolazone 7.5 mg 10/10/16 05:30 10/10/16 06:31 Zaroxolyn - PO 7.5 mg DAILY@0530 ABEL[facility]O Administration Difluprednate ( 1 each 09/26/16 10:00 10/10/16 10:08 Durezol) 0.05% Opth OD Not Given Drops - Pt's Own BID ABELARDO Nystatin 500,000 units 10/03/16 22:00 10/10/16 06:31 Nystatin Oral Suspension - PO 500,000 units TID ABELARDO Administration Oxycodone HCl 5 mg 10/06/16 10:04 Roxicodone - PO Q4H PRN PAIN Pantoprazole Sodium 40 mg 09/26/16 22:00 10/10/16 10:07 Protonix - PO 40 mg BID ABEL[facility]O Administration Spironolactone 25 mg 09/30/16 22:00 10/10/16 10:07 Aldactone - PO 25 mg BID ABELARDO Administration Warfarin Sodium 2 mg 10/03/16 18:00 10/09/16 18:05 Coumadin - PO 2 mg DAILY@1800 ABELARDO Administration Zolpidem Tartrate 7.5 mg 10/06/16 22:00 10/09/16 22:11 Ambien - PO 7.5 mg HS PRN Administration O: 86 year old female was in no acute distress, no pallor, cyanosis, clubbing, or jaundice. Last Vital Signs Temp Pulse Resp BP Pulse Ox 98.1 F 74 Irregular 22 124/59 97 10/10/16 06:00 10/10/16 06:00 10/10/16 06:00 10/10/16 06:00 10/09/16 21:00 Neck: Supple, positive HJR, pulsatile neck veins, carotids were equal and upstrokes were normal, no thyromegaly appreciated. Heart: PMI was in the 5th intercostal space. Slight left parasternal heave, no thrills. [place] prostethic sounds grade II/ systolic murmur along the left sternal border and apex. No diastolic murmur or gallops were hears. Lungs: Decrease breath sounds at the right base, no extraneous sounds heard. Abdomen: Soft, nontender, slight right upper quadrant guarding and liver appears pulsatile, and no palpable masses were felt. Extremities: No calf tenderness. 2+ bilateral pitting edema, chronic stasis changes bilaterally. CBC, BMP 10/04/16 10:40 10/05/16 06:00 Laboratory Results - last 24 hr 10/10/16 06:00 INR 2.68 H Impression: (1) CHF (congestive heart failure), NYHA class II Code(s): I50.9 - HEART FAILURE, UNSPECIFIED Qualifiers: Congestive heart failure type: diastolic Congestive heart failure chronicity: acute on chronic Qualified Code(s): I50.33 - Acute on chronic diastolic (congestive) heart failure (2) Rheumatic heart disease Code(s): I09.9 - RHEUMATIC HEART DISEASE, UNSPECIFIED (3) S/P AVR (aortic valve replacement) Code(s): Z95.2 - PRESENCE OF PROSTHETIC HEART VALVE (4) S/P MVR (mitral valve replacement) Code(s): Z95.2 - PRESENCE OF PROSTHETIC HEART VALVE (6) Shortness of breath Code(s): R06.02 - SHORTNESS OF BREATH (7) Permanent atrial fibrillation Code(s): I48.2 - CHRONIC ATRIAL FIBRILLATION (8) Pulmonary hypertension Code(s): I27.2 - OTHER SECONDARY PULMONARY HYPERTENSION (9) Venous stasis dermatitis of both lower extremities Code(s): I83.11 - VARICOSE VEINS OF RIGHT LOWER EXTREMITY WITH INFLAMMATION I83.12 - VARICOSE VEINS OF LEFT LOWER EXTREMITY WITH INFLAMMATION (10) Cholelithiasis Code(s): K80.20 - CALCULUS OF GALLBLADDER W/O CHOLECYSTITIS W/O OBSTRUCTION Qualifiers: Cholelithiasis location: gallbladder Cholecystitis presence: without cholecystitis Biliary obstruction: without biliary obstruction Qualified Code(s): K80.20 - Calculus of gallbladder without cholecystitis without obstruction (11) Hepatic cirrhosis Code(s): K74.60 - UNSPECIFIED CIRRHOSIS OF LIVER Qualifiers: Hepatic cirrhosis type: unspecified hepatic cirrhosis Ascites presence : without ascites Qualified Code(s): K74.60 - Unspecified cirrhosis of liver (12) Hepatocellular carcinoma Code(s): C22.0 - LIVER CELL CARCINOMA (13) Angiodysplasia of gastrointestinal tract Code(s): K55.20 - ANGIODYSPLASIA OF COLON WITHOUT HEMORRHAGE Recommendations: 1. Close monitoring of electrolytes. 2. Consider decreasing dose of Zaroxolyn. 3. Daily weight. 4. Increase ambulation. Attestation: Documentation prepared by Kenroy Means, acting as medical administrator for Pillo Grossman MD.
--- NOTE | 2016-10-10 14:10 | PN ---
Progress Note, Physician History of Present Illness: Pt seen and examined at bedside. She feels comfortable. - Current Medication List Current Medications: Active Medications Acetaminophen (Tylenol -) 650 mg PO Q6H PRN PRN Reason: FEVER OR PAIN Bacitracin (Bacitracin -) 1 applic TP BID [facility] Last Admin: 10/10/16 10:08 Dose: 1 applic Benzocaine (Anbesol -) 1 applic MM Q2H PRN PRN Reason: ORAL PAIN/MOUTH SORES Docusate Sodium (Colace -) 100 mg PO DAILY [facility] Last Admin: 10/10/16 10:07 Dose: 100 mg Ferrous Sulfate (Feosol -) 325 mg PO BIDWM [facility] Last Admin: 10/10/16 10:07 Dose: 325 mg Furosemide (Lasix -) 40 mg PO DAILY@0600 [facility] Last Admin: 10/10/16 07:05 Dose: 40 mg Losartan Potassium (Cozaar -) 25 mg PO DAILY [facility] Last Admin: 10/10/16 10:07 Dose: 25 mg Metolazone (Zaroxolyn -) 7.5 mg PO DAILY@0530 [facility] Last Admin: 10/10/16 06:31 Dose: 7.5 mg Difluprednate ( Durezol) 0.05% Opth Drops - Pt's Own 1 each OD BID [facility] Last Admin: 10/10/16 10:08 Dose: Not Given Nystatin (Nystatin Oral Suspension -) 500,000 units PO TID [facility] Last Admin: 10/10/16 06:31 Dose: 500,000 units Oxycodone HCl (Roxicodone -) 5 mg PO Q4H PRN PRN Reason: PAIN Pantoprazole Sodium (Protonix -) 40 mg PO BID [facility] Last Admin: 10/10/16 10:07 Dose: 40 mg Spironolactone (Aldactone -) 25 mg PO BID [facility] Last Admin: 10/10/16 10:07 Dose: 25 mg Warfarin Sodium (Coumadin -) 2 mg PO DAILY@1800 [facility] Last Admin: 10/09/16 18:05 Dose: 2 mg Zolpidem Tartrate (Ambien -) 7.5 mg PO HS PRN Last Admin: 10/09/16 22:11 Dose: 7.5 mg - Objective Vital Signs: Vital Signs Temperature 98.1 F 10/10/16 06:00 Pulse Rate 74 01/06/17 06:00 Respiratory Rate 22 10/10/16 06:00 Blood Pressure 124/59 10/10/16 06:00 O2 Sat by Pulse Oximetry (%) 97 10/09/16 21:00 Constitutional: Yes: Anxious Eyes: Yes: Conjunctiva Clear Cardiovascular: Yes: S1, S2 Respiratory: Yes: On Nasal O2 Gastrointestinal: Yes: Soft Genitourinary: Yes: WNL Musculoskeletal: Yes: Muscle Weakness Edema: Yes Neurological: Yes: Oriented Psychiatric: Yes: Oriented Labs: CBC, BMP 10/04/16 10:40 10/05/16 06:00 INR, PTT INR 2.68 (0.82-1.09) H 10/10/16 06:00 Problem List - Problems (1) Anemia Code(s): D64.9 - ANEMIA, UNSPECIFIED Qualifiers: Anemia type: iron deficiency (2) CHF (congestive heart failure) Code(s): I50.9 - HEART FAILURE, UNSPECIFIED Qualifiers: Congestive heart failure type: diastolic Congestive heart failure chronicity: acute on chronic Qualified Code(s): I50.33 - Acute on chronic diastolic (congestive) heart failure (3) Cholelithiasis Code(s): K80.20 - CALCULUS OF GALLBLADDER W/O CHOLECYSTITIS W/O OBSTRUCTION Qualifiers: Cholelithiasis location: gallbladder Cholecystitis presence: without cholecystitis Biliary obstruction: without biliary obstruction Qualified Code(s): K80.20 - Calculus of gallbladder without cholecystitis without obstruction (4) Hepatic cirrhosis Code(s): K74.60 - UNSPECIFIED CIRRHOSIS OF LIVER Qualifiers: Hepatic cirrhosis type: unspecified hepatic cirrhosis Ascites presence : without ascites Qualified Code(s): K74.60 - Unspecified cirrhosis of liver (5) S/P AVR (aortic valve replacement) Code(s): Z95.2 - PRESENCE OF PROSTHETIC HEART VALVE (6) S/P MVR (mitral valve replacement) Code(s): Z95.2 - PRESENCE OF PROSTHETIC HEART VALVE (8) Shortness of breath Code(s): R06.02 - SHORTNESS OF BREATH (9) RADHA (acute kidney injury) Code(s): N17.9 - ACUTE KIDNEY FAILURE, UNSPECIFIED Assessment/Plan Current Medications Generic Name Dose Route Start Last Admin Trade Name Freq PRN Reason Stop Dose Admin Acetaminophen 650 mg 09/26/16 07:48 Tylenol - PO Q6H PRN FEVER OR PAIN Bacitracin 1 applic 09/26/16 10:00 10/10/16 10:08 Bacitracin - TP 1 applic BID [facility]O Administration Benzocaine 1 applic 10/03/16 14:00 Anbesol - MM Q2H PRN ORAL PAIN/MOUTH SORES Docusate Sodium 100 mg 10/07/16 10:00 10/10/16 10:07 Colace - PO 100 mg DAILY ABEL[facility]O Administration Ferrous Sulfate 325 mg 09/26/16 08:15 10/10/16 10:07 Feosol - PO 325 mg BIDWM ABELARDO Administration Furosemide 40 mg 10/04/16 06:00 10/10/16 07:05 Lasix - PO 40 mg DAILY@0600 ABELARDO Administration Losartan Potassium 25 mg 10/08/16 10:00 10/10/16 10:07 Cozaar - PO 25 mg DAILY [facility]O Administration Metolazone 7.5 mg 10/10/16 05:30 10/10/16 06:31 Zaroxolyn - PO 7.5 mg DAILY@0530 ABELARDO Administration Difluprednate ( 1 each 09/26/16 10:00 10/10/16 10:08 Durezol) 0.05% Opth OD Not Given Drops - Pt's Own BID [facility] Nystatin 500,000 units 10/03/16 22:00 10/10/16 06:31 Nystatin Oral Suspension - PO 500,000 units TID [facility]O Administration Oxycodone HCl 5 mg 10/06/16 10:04 Roxicodone - PO Q4H PRN PAIN Pantoprazole Sodium 40 mg 09/26/16 22:00 10/10/16 10:07 Protonix - PO 40 mg BID [facility]O Administration Spironolactone 25 mg 09/30/16 22:00 10/10/16 10:07 Aldactone - PO 25 mg BID [facility] Administration Warfarin Sodium 2 mg 10/03/16 18:00 10/09/16 18:05 Coumadin - PO 2 mg DAILY@1800 AB[facility]O Administration Zolpidem Tartrate 7.5 mg 10/06/16 22:00 10/09/16 22:11 Ambien - PO 7.5 mg HS PRN Administration Impression 1. RADHA 2. aortic valve replacement 3. mitral valve replacement 4. tricuspid valve replacement 5. CHF 6. a-fib 7. anemia 8. hx GI bleed 9. HTN 10. liver cirrhosis 11. CKD Plan - cont current management - no acute change - pt is awaiting placement - case discussed with daughter - will follow PRN Dr Bo
[2016-10-10] MEDS: WARFARIN NA 2 MG TABLET (UD) PO SCH (17:08)
[2016-10-11] MEDS: ZOLPIDEM TARTRATE 5 MG TABLET PO PRN (00:11)
[2016-10-11] MEDS ORDERED: PT OWN MED DRAWER 7, Y5N ONE (06:44)
[2016-10-11] MEDS: NYSTATIN 500,000 UNITS/5 ML SUSPENSION PO SCH (06:45)
[2016-10-11] MEDS: METOLAZONE 2.5 MG TABLET (FP) PO SCH (06:45)
[2016-10-11] MEDS: FUROSEMIDE 40 MG TABLET (FP) PO SCH (07:53)
[2016-10-11] MEDS: FERROUS SO4 325 MG TABLET (FP) PO SCH ×2 (08:00→09:36)
[2016-10-11] MEDS: LOSARTAN POTASSIUM 25 MG TABLET PO SCH (09:36)
[2016-10-11] MEDS: PANTOPRAZOLE 40 MG TABLET (FP) PO SCH (09:36)
[2016-10-11] MEDS: SPIRONOLACTONE 25 MG TABLET (FP) PO SCH (09:36)
[2016-10-11] MEDS: DOCUSATE SODIUM 100 MG CAPSULE (FP) PO SCH (09:36)
--- NOTE | 2016-10-11 09:50 | PN ---
Progress Note, Physician - Current Medication List Current Medications: Active Medications Acetaminophen (Tylenol -) 650 mg PO Q6H PRN PRN Reason: FEVER OR PAIN Benzocaine (Anbesol -) 1 applic MM Q2H PRN PRN Reason: ORAL PAIN/MOUTH SORES Docusate Sodium (Colace -) 100 mg PO DAILY [facility] Last Admin: 10/11/16 09:36 Dose: 100 mg Ferrous Sulfate (Feosol -) 325 mg PO BIDWM [facility] Last Admin: 10/11/16 09:36 Dose: 325 mg Furosemide (Lasix -) 40 mg PO DAILY@0600 [facility] Last Admin: 10/11/16 07:53 Dose: 40 mg Losartan Potassium (Cozaar -) 25 mg PO DAILY [facility] Last Admin: 10/11/16 09:36 Dose: 25 mg Metolazone (Zaroxolyn -) 7.5 mg PO DAILY@0530 [facility] Last Admin: 10/11/16 06:45 Dose: 7.5 mg Nystatin (Nystatin Oral Suspension -) 500,000 units PO TID [facility] Last Admin: 10/11/16 06:45 Dose: 500,000 units Oxycodone HCl (Roxicodone -) 5 mg PO Q4H PRN PRN Reason: PAIN Pantoprazole Sodium (Protonix -) 40 mg PO BID [facility] Last Admin: 10/11/16 09:36 Dose: 40 mg Spironolactone (Aldactone -) 25 mg PO BID [facility] Last Admin: 10/11/16 09:36 Dose: 25 mg Warfarin Sodium (Coumadin -) 2 mg PO DAILY@1800 [facility] Last Admin: 10/10/16 17:08 Dose: 2 mg Zolpidem Tartrate (Ambien -) 7.5 mg PO HS PRN Last Admin: 10/11/16 00:11 Dose: 7.5 mg - Objective Vital Signs: Vital Signs Temperature 97.6 F 10/11/16 06:00 Pulse Rate 88 10/11/16 06:00 Respiratory Rate 20 10/11/16 06:00 Blood Pressure 101/66 10/11/16 06:00 O2 Sat by Pulse Oximetry (%) 98 10/10/16 21:00 Cardiovascular: Yes: Regular Rate and Rhythm, S1, S2 Respiratory: Yes: Diminished Gastrointestinal: Yes: Normal Bowel Sounds, Soft Labs: CBC, BMP 10/04/16 10:40 10/05/16 06:00 INR, PTT INR 2.68 (0.82-1.09) H 10/10/16 06:00 Problem List - Problems (1) Anemia Code(s): D64.9 - ANEMIA, UNSPECIFIED Qualifiers: Anemia type: iron deficiency (2) CHF (congestive heart failure) Code(s): I50.9 - HEART FAILURE, UNSPECIFIED Qualifiers: Congestive heart failure type: diastolic Congestive heart failure chronicity: acute on chronic Qualified Code(s): I50.33 - Acute on chronic diastolic (congestive) heart failure (3) Elevated serum creatinine Code(s): R79.89 - OTHER SPECIFIED ABNORMAL FINDINGS OF BLOOD CHEMISTRY (4) Hepatic cirrhosis Code(s): K74.60 - UNSPECIFIED CIRRHOSIS OF LIVER Qualifiers: Hepatic cirrhosis type: unspecified hepatic cirrhosis Ascites presence : without ascites Qualified Code(s): K74.60 - Unspecified cirrhosis of liver (5) Rheumatic heart disease Code(s): I09.9 - RHEUMATIC HEART DISEASE, UNSPECIFIED (6) S/P AVR (aortic valve replacement) Code(s): Z95.2 - PRESENCE OF PROSTHETIC HEART VALVE (7) S/P MVR (mitral valve replacement) Code(s): Z95.2 - PRESENCE OF PROSTHETIC HEART VALVE (8) Shortness of breath Code(s): R06.02 - SHORTNESS OF BREATH Assessment/Plan INR THERAPEUTIC DIURESIS WITH ALDACTONE/THIAZIDE/LASIX ALL PO CONTINUED 02 SUPPORT BEDSIDE PT, OOB TO CHAIR PAIN CONTROL AMBIEN FOR SLEEP AID PATIENT HAS MENTIONED MULTIPLE TIMES SHE DOES NOT WANT ANY HEROIC MEDICAL TREATMENT, WOULD PREFER HOSPICE/COMFORTABLE CARE AND TO BE DISCHARGED TO [facility]. HOWEVER, DUE TO BED AVAILABILITY AND INSURANCE CIRCUMSTANCES THIS PLAN HAS ELENA COMPLICATED AND PATIENT AND FAMILY MAY NEED TO FOR HOME WITH VNS/HOME HOSPICE WITH COMFORT MEASURES. DISCHARGE PLANNING/PALLIATIVE CARE AND THE LUMBER STRAIGHTENED ARE ALL AWARE OF THE PLANS AND WE ARE AWARE OF THE PATIENT'S NEEDS AND FAMILY IS ALSO EXTREMELY SUPPORTIVE TO THEIR MOTHER'S NEEDS. WE WILL CONTINUE MEDICAL MANAGEMENT AND SUPPORTIVE CARE WITH NO MEDICAL PROCEDURES, NO INTERVENTIONS THAT ARE AGGRESSIVE OR HEROIC. DNR/DNI HOSPICE PLACEMENT [employer] [place]
[2016-10-11 20:13] VITALS: BP 124/73; PULSE 82; TEMP 97.4
== END 2016-10-11 10:36 | DRG 291 ==
LOC: JER 16:18 → SUPCPDRO 16:18 → JERBED 19:57 → J4S 22:49 → J8W 09-13 19:50 → JICU 09-21 19:07 → J4W 09-26 20:03 → J5S 10-07 12:59 → UNDODISIN 10-07 17:32
PROVIDERS: ADMIT Family Medicine; ATTEND Family Medicine
PROC: 30233N1 Transfusion of Nonautologous Red Blood Cells into Peripheral Vein, Percutaneous Approach (ICD-10-PCS; principal; 2016-09-22)
DX: I13.0 Hypertensive heart and chronic kidney disease with heart failure and stage 1 through stage 4 chronic kidney disease, or unspecified chronic kidney disease (principal); I50.33 Acute on chronic diastolic (congestive) heart failure; N17.9 Acute kidney failure, unspecified; C22.0 Liver cell carcinoma; R18.8 Other ascites; E87.1 Hypo-osmolality and hyponatremia; Z95.2 Presence of prosthetic heart valve; D64.9 Anemia, unspecified; K74.60 Unspecified cirrhosis of liver; K80.20 Calculus of gallbladder without cholecystitis without obstruction; N18.9 Chronic kidney disease, unspecified; I48.2 Chronic atrial fibrillation; I27.2 Other secondary pulmonary hypertension; I36.1 Nonrheumatic tricuspid (valve) insufficiency; I87.2 Venous insufficiency (chronic) (peripheral); Z87.891 Personal history of nicotine dependence
CPT/HCPCS: 36415; 36430; 71010-TC; 76700-TC; 76775-TC; 76856-TC; 80048; 80053; 81003; 81015; 82105; 82140; 82272; 82436; 82550; 82570; 83735; 83880; 84100; 84133; 84300; 84484; 84540; 85025; 85027; 85610; 85730; 86850; 86900; 86901; 86922; 87045; 87046; 87086; 87186; 87324; 87449; 93005; 93010; 93306-TC; 94640; 97001-GP; 97116-GP; 99284-25; J1250; P9038; P9058